=== PATIENT | female | born 1965 | race Caucasian/White ===

== ENCOUNTER 2017-03-19 09:14 | Inpatient (IN) | payer OTHER ==
--- NOTE | 2017-03-19 09:49 | PDOC ---
History of Present Illness - General Chief Complaint: Wound Stated Complaint: BILATERAL LEG PAIN Time Seen by Provider: 03/19/17 09:48 - History of Present Illness Initial Comments: 03/19/17 11:34 The patient is a 51 year old female with a history of HTN, DM, depression who presents for evaluation of wounds to her heels bilaterally. The patient reports that she does not follow with a physician normally and does not take any medications. She states that over the past month she has been experiencing worsening pain associated with the wounds on her heels. She states that she also notes a numb sensation in her right lower extremity from her knee to her foot. She noted that 1 week ago, both wounds on her heels bilaterally opened up and began draining clear fluid. She otherwise denies any fevers, chills, SOB , chest pain, abdominal pain, nausea, vomiting, weakness, tingling, or changes with urination or bowel movements. Past History - Past Medical History Allergies/Adverse Reactions: Allergies Allergy/AdvReac Type Severity Reaction Status Date / Time Penicillins Allergy Unknown Verified 03/19/17 09:19 Home Medications: Ambulatory Orders NK [No Known Home Medication] 03/19/17 COPD: No Diabetes: Yes (NO MEDS , NO MD) HTN: Yes (NO MEDS, NO MD) - Immunization History Immunization Up to Date: Yes - Suicide/Smoking/Psychosocial Hx Smoking History: Never smoked Hx Alcohol Use: No Drug/Substance Use Hx: No Substance Use Type: None Review of Systems - Review of Systems Comments:: 03/19/17 11:40 Constitutional: No fevers, chills, fatigue, malaise HEENT: No Rhinorrhea, nasal congestion, visual changes Cardiovascular: No chest pain, syncope, palpitations, lightheadedness Respiratory: No Cough, SOB, Hemoptysis, Gastrointestinal: No Abdominal pain, Nausea, Vomiting, Constipation, Diarrhea, Melena Genitourinary: No Dysuria, Frequency, Urgency, Hesitancy, Hematuria, Flank pain Musculoskeletal: No Myalgia, arthralgia Skin: Bilatearlly heel blistering wounds. No rashes, bruising, pallor Neurologic: Numbness to the right lower extremity. No Headache, Dizziness, Weakness, or Tingling Psychiatric: No Hallucinations. No SI or HI *Physical Exam - Vital Signs Last Vital Signs Temp Pulse Resp BP Pulse Ox 98.4 F 120 H 20 207/102 100 03/19/17 09:15 03/19/17 09:15 03/19/17 09:15 03/19/17 09:15 03/19/17 09:15 - Physical Exam Comments: 03/19/17 11:41 General Appearance: Nourished. In Mild Apparent Distress HEENT: EOMI, ROSALINDA. No Pharyngeal Erythema, Tonsillar Exudate, Tonsillar Erythema Neck: No Cervical Lymphadenopathy Respiratory/Chest: Lungs Clear, Normal Breath Sounds. No Crackles, Rales, Rhonchi, Wheezing Cardiovascular: Regular Rhythm, Regular Rate. No Murmur, Gallops, Rubs Gastrointestinal/Abdominal: Normal Bowel Sounds, Soft. No Guarding, Rebound, Tenderness Musculoskeletal: No CVA Tenderness Extremity: No edema noted in the lower extremities bilaterally. Blistering wound to the right heel with two skin tears and underlying hematoma and surrounding erythema. Extreme tenderness to palpation and light touch of the right foot. Small blistering wound to the left heel with a superficial skin tear. Non-palpable dp or tibial pulses bilaterally. Integumentary: Normal Color, Dry, Warm Neurologic: Fully Oriented, Alert, Normal Mood/Affect, Normal Response, Decreased sensation to light touch in the feet bilaterally worse on the right. ED Treatment Course - LABORATORY CBC & Chemistry Diagram: 03/19/17 10:37 03/19/17 10:37 Medical Decision Making - Medical Decision Making 03/19/17 11:45 The patient is a 51 year old female with a history of HTN, DM, depression who presents for evaluation of wounds to her heels bilaterally. Differential includes but is not limited to: Hyperglycemia, cellulitis, wound infection, dvt , ischemia, infectious, metabolic derangement. Given the patient's physical exam, it appears there is a wound infection and the concern is for osteomylitis vs. a cellulitis. Also given her decreased pulses bilaterally, we are concerned for ischemia possibly contributing to her symptoms. We will obtain a cbc, cmp, vbg, blood, cultures, esr, crp, ua, urine tox, plain films, arterial US, and possibly a CT of the lower extremities to evaluate further. We will treat the patient's pain with morphine. We will continue to monitor and reassess. 03/19/17 13:29 CBC demonstrates an elevated wbc to 14.2. cmp demonstrated a hyponatremia to 132 and hyperglycemia to 338. The patient's tachycardia and bp improved after treatment with morphine. ESR, ARSON INVESTIGATOR are elevated. Plain films did not demonstrate evidence of osteomylitis, however given our clinical concern we will obtain ct scan of the lower extremities to further evaluate and cover the patient with antibiotics. Arterial US did not demonstrate arterial occlusion, however also due to our clinical exam and concern we will obtain a cta of the lower extremities to evaluate further. We will continue to monitor and reassess. 03/19/17 15:21 We discussed the case with the hospitalist team who accepted the patient for admission. We discussed the results and the plan with the patient who voiced understanding and is agreeable with the plan. *DC/Admit/Observation/Transfer Diagnosis at time of Disposition: Hyperglycemia, PVD (peripheral vascular disease) Foot ulcer Qualifiers: Laterality: unspecified laterality Non-pressure ulcer stage: unspecified non- pressure ulcer stage Qualified Code(s): L97.509 - Non-pressure chronic ulcer of other part of unspecified foot with unspecified severity Cellulitis Qualifiers: Site of cellulitis: extremity Site of cellulitis of extremity: lower extremity Laterality: unspecified laterality Qualified Code(s): L03.119 - Cellulitis of unspecified part of limb - Discharge Dispostion Condition at time of disposition: Guarded Admit: Yes - Referrals - Patient Instructions - Post Discharge Activity
--- NOTE | 2017-03-19 10:06 | PDOC ---
Attending Attestation - HPI HPI: 03/19/17 11:33 The patient is a 51 year old female with a significant PMH of HTN, diabetes, and depression who presents to the emergency department with bilateral leg pain secondary to bilateral heel wounds that have not healed for about 1 month. She also notes about 1 week of clear fluid drainage from her heel wounds bilaterally. Allergies: Penicillins <MaikelLuis - Last Filed: 03/19/17 12:12> - Resident Resident Name: Jeosph Khan - ED Attending Attestation I have performed the following: I have examined & evaluated the patient, The case was reviewed & discussed with the resident, I agree w/resident's findings & plan, Exceptions are as noted - Physicial Exam PE: 03/19/17 14:14 Patient is awake and alert, afebrile, hypertensive and tachycardic on initial evaluation HEAD: Normocephalic; atraumatic EYES: PERRL; EOM intact ENMT: External appears normal; NECK: Supple; non-tender; no cervical lymphadenopathy CARD: Tachycardic, Normal S1, S2; no murmurs, rubs, or gallops RESP: Normal chest excursion with respiration; breath sounds clear and equal bilaterally; no wheezes, rhonchi, or rales ABD: Soft, non-distended; non-tender; no palpable organomegaly, no palpable hernias EXT: RLE: No obvious edema, erythema and discoloration of the distal third of the lower extremity involving the foot, cold to touch, with a 3 cm hemorrhagic bullae to the inner aspect of the right heel; unable to palpate dorsalis pedis and tibialis posterior; popliteal pulses +1; LLE: No obvious deformity; 2.5 cm callus with cutaneous disruption to the medial aspect of the left heel; unable to palpate dorsalis pedis and tibialis posterior; popliteal pulses +1 SKIN: Warm, dry, no rash NEURO: No focal neurological deficiencies. - Medical Decision Making 03/19/17 14:19 Patient is a 51-year-old female with history of diabetes, hypertension ( noncompliant with medication regimen, who is not been evaluated by a physician in several years) presents to the ER with atraumatic pain, discoloration and the wound formation to the lower extremities bilaterally. Right lower extremity is cooler to touch when compared to the left, with a 3 cm hemorrhagic bullae to the medial aspect of the medial, with no palpable dorsalis pedis or tibialis posterior pulses. I suspect a diabetic foot ulcer due to a combination of poorly controlled diabetes and peripheral vascular disease. Similar findings are noted on the left. We'll obtain CBC/CMP/ESR/CRP. We'll obtain bilateral foot x-ray to evaluate for possible bone erosion, will obtain arterial Doppler of the lower extremities to evaluate for serial insufficiency. Will consider CTA. Will administer IV antibiotics. Likely admission. 03/19/17 14:34 After administration of 4 mg of IV morphine, patient's blood pressure improved and heart rate decreased to 10 2 bpm. CBC reveals mild leukocytosis with predominance of neutrophils. ESR and CRP are elevated. Bilateral foot x-ray reveals no evidence of foreign bodies or bony distraction. Lower extremity arterial Doppler ultrasound shows no evidence of acute arterial occlusion, bilateral stenosis consistent with peripheral vascular disease is noted. Will administer IV antibiotics at this time (patient reports that her penicillin ALLERGY leads her to feel "not there"). I've explained to her that the symptoms are not consistent with true ALLERGY. We'll administer vancomycin and Zosyn. Will obtain CTA of lower extremities to better identify the anatomy. We'll consult vascular surgery as needed. Will admit. 03/19/17 16:05 Patient tolerated Zosyn without effect. <Brandon Guevara - Last Filed: 03/19/17 16:06>
[2017-03-19] MEDS ORDERED: morphine CARPU-JECT 4 MG/1 ML DISP.SYRIN IVPUSH ONE (10:35)
[2017-03-19] MEDS ORDERED: morphine CARPU-JECT 10 MG/1 ML DISP.SYRIN ONE (10:36)
[2017-03-19 11:11] LABS: BASO % 0.9 % (0-2.0); EOS % 0.2 % (0-4.5); HEMATOCRIT 36.8 % (32.4-45.2); HEMOGLOBIN 12.2 GM/dL (10.7-15.3); LYMPH % 7.8 % (8-40); MCH 28.4 pg (25.7-33.7); MCHC 33.2 g/dl (32.0-36.0); MEAN CELL VOLUME 85.7 fl (80-96); MEAN PLT VOLUME 8.7 fl (7.5-11.1); MONO % 5.9 % (3.8-10.2); NEUT % 85.2 % (42.8-82.8); PLATELET COUNT 349 K/MM3 (134-434); RDW 13.6 % (11.6-15.6); WHITE BLOOD COUNT 14.2 K/mm3 (4.0-10.0)
[2017-03-19 11:12] LABS: VENOUS PC02 34.2 mmHg (38-52); VENOUS PH 7.45 (7.32-7.42); VENOUS PO2 32.8 mmHg (28-48)
[2017-03-19 11:37] LABS: ALBUMIN 2.4 g/dl (3.4-5.0); ANION GAP 12 (8-16); BLOOD UREA NITROGEN 23 mg/dL (7-18); CALCIUM 8.7 mg/dL (8.5-10.1); CHLORIDE 94 mmol/L (98-107); CO2 26 mmol/L (21-32); CREATININE 0.9 mg/dL (0.55-1.02); SGOT/AST 11 U/L (15-37); SGPT/ALT 13 U/L (12-78); SODIUM 132 mmol/L (136-145)
[2017-03-19 11:39] LABS: ALK PHOS 89 U/L (45-117); BILIRUBIN,TOTAL 0.7 mg/dL (0.2-1.0); GLUCOSE,RANDOM 348 mg/dL (74-106); TOT PROT 6.8 g/dl (6.4-8.2)
[2017-03-19 11:43] LABS: INR 1.04 (0.82-1.09); PROTHROMBIN TIME (PATIENT) 11.7 SEC (9.98-11.88)
[2017-03-19] MEDS ORDERED: SODIUM CHLORIDE 1,000 ML IV STA (12:12)
[2017-03-19 13:15] LABS: URINE APPEARANCE CLEAR; URINE BILIRUBIN NEGATIVE (NEGATIVE); URINE BLOOD 2+ (NEGATIVE); URINE COLOR LTYELLOW; URINE GLUCOSE (UA) 3+ (NEGATIVE); URINE KETONE 1+ (NEGATIVE); URINE LEUK ESTERASE NEGATIVE (NEGATIVE); URINE NITRITE NEGATIVE (NEGATIVE); URINE UROBILINOGEN NEGATIVE mg/dL (0.2-1.0)
[2017-03-19 13:18] LABS: URINE PROTEIN 3+ (NEGATIVE)
[2017-03-19 13:21] LABS: COCAINE, UR NEGATIVE ng/ml (CUTOFF=300); EPI CELLS RARE /HPF (FEW); GRANULAR CASTS 12 /lpf; METHADONE, UR NEGATIVE ng/ml (CUTOFF=300); PHENCYCLIDINE,URINE NEGATIVE ng/ml (CUTOFF=25); URINE AMPHETAMINES NEGATIVE ng/ml (CUTOFF=500); URINE BARBITURATES NEGATIVE ng/ml (CUTOFF=200); URINE BENZODIAZEPINES NEGATIVE ng/ml (CUTOFF=200); URINE MUCUS RARE
[2017-03-19 13:22] LABS: OPIATES, URI POSITIVE ng/ml (CUTOFF=300)
[2017-03-19] MEDS ORDERED: VANCOMYCIN 1,250 MG in DEXTROSE 5%-WATER - 250 ML IVPB ONE (13:28)
[2017-03-19] MEDS ORDERED: PIPERACILLIN/TAZOB 3.375 GM 3.375 GM/50 ML BAG IVPB ONE (13:54)
[2017-03-19] MEDS ORDERED: VANCOMYCIN 1,250 MG in SODIUM CHLORIDE 250 ML IVPB ONE (13:58)
[2017-03-19] MEDS ORDERED: ONDANSETRON 4 MG/2 ML VIAL IVPUSH ONE ×2 (14:01→16:05)
[2017-03-19] MEDS ORDERED: ONDANSETRON 4 MG/2 ML VIAL ONE ×2 (14:23→16:08)
[2017-03-19] MEDS ORDERED: PIPERACILLIN/TAZOB 3.375 GM 3.375 GM in SODIUM CHLORIDE 100 ML IVPB ONE (14:30)
--- NOTE | 2017-03-19 15:11 | HP ---
CHIEF COMPLAINT: worsening lower ext pain with ambulation/bilateral wounds with drainage PCP: does not have one HISTORY OF PRESENT ILLNESS: Patient is a 51 year old female with a significant past medical history of hypertension, diabetes (both uncontrolled and on no home medication) and depression. She presents to the Emergency Room today with complaints of worsening lower extremity pain and evaluation of her wounds on her bilateral heels. Patient does not have a primary care physician and is on no medications for her diabetes and hypertension. She states that over the past few weeks she has been experiencing worsening pain associated to the wounds on both feet, but the right was worse than the left. She reports pain with ambulation and worsening drainage of her wounds. She states that she also notes a numb sensation in her right lower extremity from her knee to her foot. She noted that 1 week ago, both wounds on her heels bilaterally opened up and began draining clear fluid. She denies any fever, chills, chest pain or shortness of breath. On exam, unable to appreciate pulses on bilateral lower ext, pt is able to move both lower limbs when asked, denies any numbness or tingling. CTA with aorta runoff Impression: 1. peripheral vascular disease with severe stenosis and flow gap in the distal right SFA, severe stenosis in the right popliteal artery and likely multifocoal hemodynamically significant lunimal narrowing in the anterior tibial, postero tibial and peoneal arteries, secondary to calcified plaque. 2. Peripheral vascular disease with severe stenosis in the distal left superficial femoral artery. Severe stenosis in the distal left popliteal artery with flow gap, likely multifocal hemodynamically significant luminal narrowing in the anterior tibial, posterior tibial and peroneal arteries secondary to calcified plaque. Severe short segment luminal narrowing in the left dorsalis pedis. 4. enlarged lobulated uterus with multiple large leiomyomas ER course was notable for: (1) BGMs 400s (2) CTA as above (3) NA 132 Recent Travel: denies PAST MEDICAL HISTORY: hypertension, diabetes (both uncontrolled and on no home medication) and depression PAST SURGICAL HISTORY: Social History: Smoking: denies Alcohol: denies Drugs: denies Family History: Allergies Penicillins Allergy (Unknown, Verified 03/19/17 09:19) HOME MEDICATIONS: Home Medications Medication Instructions Recorded NK [No Known Home Medication] 03/19/17 REVIEW OF SYSTEMS CONSTITUTIONAL: Absent: fever, chills, diaphoresis, generalized weakness, malaise, loss of appetite, weight change HEENT: Absent: rhinorrhea, nasal congestion, throat pain, throat swelling, difficulty swallowing, mouth swelling, ear pain, eye pain, visual changes CARDIOVASCULAR: Absent: chest pain, syncope, palpitations, irregular heart rate, lightheadedness , peripheral edema RESPIRATORY: Absent: cough, shortness of breath, dyspnea with exertion, orthopnea, wheezing, stridor, hemoptysis GASTROINTESTINAL: Absent: abdominal pain, abdominal distension, nausea, vomiting, diarrhea, constipation, melena, hematochezia GENITOURINARY: Absent: dysuria, frequency, urgency, hesitancy, hematuria, flank pain, genital pain MUSCULOSKELETAL: Absent: myalgia, arthralgia, joint swelling, back pain, neck pain SKIN: Absent: rash, itching, pallor HEMATOLOGIC/IMMUNOLOGIC: Absent: easy bleeding, easy bruising, lymphadenopathy, frequent infections ENDOCRINE: Absent: unexplained weight gain, unexplained weight loss, heat intolerance, cold intolerance NEUROLOGIC: Absent: headache, focal weakness or paresthesias, dizziness, unsteady gait, seizure, mental status changes, bladder or bowel incontinence PSYCHIATRIC: Absent: anxiety, suicidal or homicidal ideation, hallucinations. PHYSICAL EXAMINATION Vital Signs - 24 hr 03/19/17 03/19/17 03/19/17 09:15 11:07 13:04 Temperature 98.4 F Pulse Rate 120 H Pulse Rate [ 110 H 90 Left Radial] Respiratory 20 22 20 Rate Blood Pressure 207/102 Blood Pressure 173/70 193/96 [Left Arm] O2 Sat by Pulse 100 100 99 Oximetry (%) GENERAL: Awake, alert, and fully oriented, in no acute distress. HEAD: Normal with no signs of trauma. EYES: Pupils equal, round and reactive to light, extraocular movements intact, sclera anicteric, conjunctiva clear. No lid lag. EARS, NOSE, THROAT: Ears normal, nares patent, oropharynx clear without exudates. Moist mucous membranes. NECK: Normal range of motion, supple without lymphadenopathy, JVD, or masses. LUNGS: Breath sounds equal, clear to auscultation bilaterally. No wheezes, and no crackles. No accessory muscle use. EXT: Right lower ext: No edema, + erythema and dark discoloration of the distal third of the lower extremity. Round heal wound, circular 3cm x 3cm hemorrhagic bullae to the inner aspect of the right heal. Discolored right ankle, may be bleeding under skin. Unable to palpate pulses. Left lower ext. No deformity 2.5 x 2cm circular callus with cutanous medial aspect of left heal. Unable to palpate pulses. Patient able to move toes freely when asked. Poor capillary refill. PSYCHIATRIC: Cooperative. Good eye contact. Appropriate mood and affect. Laboratory Results - last 24 hr 03/19/17 03/19/17 03/19/17 10:19 10:35 10:37 WBC 14.2 H RBC 4.30 Hgb 12.2 Hct 36.8 MCV 85.7 MCH 28.4 MCHC 33.2 RDW 13.6 Plt Count 349 D MPV 8.7 Neutrophils % 85.2 H Lymphocytes % 7.8 L Monocytes % 5.9 Eosinophils % 0.2 D Basophils % 0.9 ESR PT with INR INR VBG pH 7.45 H POC VBG pCO2 34.2 L POC VBG pO2 32.8 Mixed VBG HCO3 23.6 Sodium Potassium Chloride Carbon Dioxide Anion Gap BUN Creatinine Creat Clearance w eGFR POC Glucometer [phone] Random Glucose Calcium Total Bilirubin AST ALT Alkaline Phosphatase C-Reactive Protein Total Protein Albumin Serum , Qual Urine Color Urine Appearance Urine pH Ur Specific Hartman Urine Protein Urine Glucose (UA) Urine Ketones Urine Blood Urine Nitrite Urine Bilirubin Urine Urobilinogen Ur Leukocyte Esterase Urine WBC (Auto) Urine RBC (Auto) Ur Epithelial Cells Granular Casts Urine Mucus Opiates Screen Methadone Screen Barbiturate Screen Phencyclidine Screen Ur Amphetamines Screen MDMA (Ecstasy) Screen Benzodiazepines Screen Cocaine Screen U Marijuana (THC) Screen Blood Type Antibody Screen 03/19/17 03/19/17 03/19/17 10:37 10:37 10:37 WBC RBC Hgb Hct MCV MCH MCHC RDW Plt Count MPV Neutrophils % Lymphocytes % Monocytes % Eosinophils % Basophils % ESR PT with INR 11.70 INR 1.04 VBG pH POC VBG pCO2 POC VBG pO2 Mixed VBG HCO3 Sodium 132 L Potassium 4.0 Chloride 94 L Carbon Dioxide 26 Anion Gap 12 BUN 23 H Creatinine 0.9 Creat Clearance w eGFR > 60 POC Glucometer Random Glucose 348 H* Calcium 8.7 Total Bilirubin 0.7 D AST 11 L ALT 13 Alkaline Phosphatase 89 C-Reactive Protein Total Protein 6.8 Albumin 2.4 L Serum , Qual Urine Color Urine Appearance Urine pH Ur Specific Hartman Urine Protein Urine Glucose (UA) Urine Ketones Urine Blood Urine Nitrite Urine Bilirubin Urine Urobilinogen Ur Leukocyte Esterase Urine WBC (Auto) Urine RBC (Auto) Ur Epithelial Cells Granular Casts Urine Mucus Opiates Screen Methadone Screen Barbiturate Screen Phencyclidine Screen Ur Amphetamines Screen MDMA (Ecstasy) Screen Benzodiazepines Screen Cocaine Screen U Marijuana (THC) Screen Blood Type A POSITIVE Antibody Screen Negative 03/19/17 03/19/17 03/19/17 10:37 10:37 12:15 WBC RBC Hgb Hct MCV MCH MCHC RDW Plt Count MPV Neutrophils % Lymphocytes % Monocytes % Eosinophils % Basophils % ESR 90 H PT with INR INR VBG pH POC VBG pCO2 POC VBG pO2 Mixed VBG HCO3 Sodium Potassium Chloride Carbon Dioxide Anion Gap BUN Creatinine Creat Clearance w eGFR POC Glucometer Random Glucose Calcium Total Bilirubin AST ALT Alkaline Phosphatase C-Reactive Protein 7.8 H Total Protein Albumin Serum , Qual Negative Urine Color Urine Appearance Urine pH Ur Specific Hartman Urine Protein Urine Glucose (UA) Urine Ketones Urine Blood Urine Nitrite Urine Bilirubin Urine Urobilinogen Ur Leukocyte Esterase Urine WBC (Auto) Urine RBC (Auto) Ur Epithelial Cells Granular Casts Urine Mucus Opiates Screen Methadone Screen Barbiturate Screen Phencyclidine Screen Ur Amphetamines Screen MDMA (Ecstasy) Screen Benzodiazepines Screen Cocaine Screen U Marijuana (THC) Screen Blood Type Antibody Screen 03/19/17 03/19/17 13:04 13:04 WBC RBC Hgb Hct MCV MCH MCHC RDW Plt Count MPV Neutrophils % Lymphocytes % Monocytes % Eosinophils % Basophils % ESR PT with INR INR VBG pH POC VBG pCO2 POC VBG pO2 Mixed VBG HCO3 Sodium Potassium Chloride Carbon Dioxide Anion Gap BUN Creatinine Creat Clearance w eGFR POC Glucometer Random Glucose Calcium Total Bilirubin AST ALT Alkaline Phosphatase C-Reactive Protein Total Protein Albumin Serum , Qual Urine Color Ltyellow Urine Appearance Clear Urine pH 5.0 Ur Specific Hartman 1.022 Urine Protein 3+ H Urine Glucose (UA) 3+ H Urine Ketones 1+ H Urine Blood 2+ H Urine Nitrite Negative Urine Bilirubin Negative Urine Urobilinogen Negative Ur Leukocyte Esterase Negative Urine WBC (Auto) 2 Urine RBC (Auto) 2 Ur Epithelial Cells Rare Granular Casts 12 Urine Mucus Rare Opiates Screen Positive Methadone Screen Negative Barbiturate Screen Negative Phencyclidine Screen Negative Ur Amphetamines Screen Negative MDMA (Ecstasy) Screen Negative Benzodiazepines Screen Negative Cocaine Screen Negative U Marijuana (THC) Screen Negative Blood Type Antibody Screen ASSESSMENT/PLAN: Patient is a 51 year old female with a significant past medical history of hypertension, diabetes (both uncontrolled and on no home medication) and depression. She presents to the Emergency Room today with complaints of worsening lower extremity pain and evaluation of her wounds on her bilateral heels. Patient does not have a primary care physician and is on no medications for her diabetes and hypertension. She states that over the past few weeks she has been experiencing worsening pain associated to the wounds on both feet, but the right was worse than the left. She reports pain with ambulation and worsening drainage of her wounds. She states that she also notes a numb sensation in her right lower extremity from her knee to her foot. She noted that 1 week ago, both wounds on her heels bilaterally opened up and began draining clear fluid. She denies any fever, chills, chest pain or shortness of breath. On exam, unable to appreciate pulses on bilateral lower ext, pt is able to move both lower limbs when asked, denies any numbness or tingling. Imaging: CTA with aorta runoff Impression: 1. peripheral vascular disease with severe stenosis and flow gap in the distal right SFA, severe stenosis in the right popliteal artery and likely multifocoal hemodynamically significant lunimal narrowing in the anterior tibial, postero tibial and peoneal arteries, secondary to calcified plaque. 2. Peripheral vascular disease with severe stenosis in the distal left superficial femoral artery. Severe stenosis in the distal left popliteal artery with flow gap, likely multifocal hemodynamically significant luminal narrowing in the anterior tibial, posterior tibial and peroneal arteries secondary to calcified plaque. Severe short segment luminal narrowing in the left dorsalis pedis. 4. enlarged lobulated uterus with multiple large leiomyomas EKG: Sinus tachycardia, possible left atrial enlargement, non specific st and t wave abnormality ID: Sepsis secondary to diabetic wounds/Rule out osteomylitis WBC 14.2, tachycardia on admission Blood and urine cultures pending Started on Ertapenum by ID Culture wound MRI bilateral LE ordered Has PCN allergy ID following Vascular: PVD with severe stenosis and flow gap in the distal right SFA Severe stenosis in the right popliteal artery PVD with severe stenosis in the distal left superficial femoral artery Start ASA 81mg daily, first dose now Lipitor 80mg @ hs Lipid profile in a.m. Vascular consulted, MRI ordered r/o osteo Cardiology: Hypertension, uncontrolled On no home meds Given Amlodopine 10mg in ED Start Lisinopril 10mg daily and Amlodopine 5mg daily UA + protein Echo ordered Heart score 5, risk factors: uncontrolled htn, hyperlipidemia, dm, pvd - will consult cardiology Possible pre-op clearance Monitor BP Endocrine: Diabetes Mellitus, uncontrolled No anion gap BGMs, Novolog sliding scale Diabetic diet Levemir 5 units @ hs F.E.N. Fluids: IVF-NS for hyponatremia Electrolytes: monitor Nutrition: diabetic diet Prophylaxis DVT: Heparin TID GI: Protonix Disposition: full code. On discharge will need PCP assignment as pt states she does not have PCP. Visit type - Emergency Visit Emergency Visit: Yes ED Registration Date: 03/19/17 Care time: The patient presented to the Emergency Department on the above date and was hospitalized for further evaluation of their emergent condition. - New Patient This patient is new to me today: Yes Date on this admission: 03/19/17 - Critical Care Critical Care patient: No
[2017-03-19] MEDS: PIPERACILLIN/TAZOB 3.375 GM 50 ML IVPB ONE ×2 (15:37→15:51)
--- NOTE | 2017-03-19 15:54 | CON.ID ---
Consult Consult Specialty:: infectious diseases Reason for Consultation:: cellulitits and gangrene of the rt leg - History of Present Illness Chief Complaint: unable to walk History of Present Illness: 51 year old female with a significant past medical history of hypertension, diabetes takes no medications and depression. comes to the Emergency Room today with complaints of worsening lower extremity pain and evaluation of her wounds on her bilateral heels. Patient does not have a primary care physician and is on no medications for her diabetes and hypertension. She states that over the past few weeks she has been experiencing worsening pain associated to the wounds on both feet, but the right was worse than the left. She reports pain with ambulation and worsening drainage of her wounds. She states that she also notes a numb sensation in her right lower extremity from her knee to her foot. She noted that 1 week ago, both wounds on her heels bilaterally opened up and began draining clear fluid. She denies any fever, chills, chest pain or shortness of breath. the rt side of the heel color has turned black and patient has been unable to put any pressure on the legs and not walking because of that patient has a bland affect - History Source History Provided By: Patient Limitations to Obtaining History: No Limitations - Alcohol/Substance Use Hx Alcohol Use: No - Smoking History Smoking history: Never smoked Home Medications - Allergies Allergies/Adverse Reactions: Allergies Allergy/AdvReac Type Severity Reaction Status Date / Time Penicillins Allergy Unknown Verified 03/19/17 09:19 - Home Medications Home Medications: Ambulatory Orders NK [No Known Home Medication] 03/19/17 Review of Systems - Review of Systems Constitutional: reports: No Symptoms Eyes: reports: No Symptoms HENT: reports: No Symptoms Neck: reports: No Symptoms Cardiovascular: reports: No Symptoms Respiratory: reports: No Symptoms Gastrointestinal: reports: No Symptoms Genitourinary: reports: No Symptoms Musculoskeletal: reports: Other (numbness specially of the right ext) Integumentary: reports: Change in Color (black on the heel) Neurological: reports: Numbness (legs) Endocrine: reports: No Symptoms Hematology/Lymphatic: reports: No Symptoms Psychiatric: reports: No Symptoms Physical Exam Vital Signs: Vital Signs Temperature 98.4 F 03/19/17 09:15 Pulse Rate 90 03/19/17 13:04 Respiratory Rate 20 03/19/17 13:04 Blood Pressure 193/96 03/19/17 13:04 O2 Sat by Pulse Oximetry (%) 99 03/19/17 13:04 Constitutional: Yes: No Distress, Calm Eyes: Yes: Conjunctiva Clear HENT: Yes: Atraumatic Cardiovascular: Yes: Regular Rate and Rhythm Respiratory: Yes: Regular, CTA Bilaterally Gastrointestinal: Yes: Normal Bowel Sounds, Soft Musculoskeletal: Yes: Other Extremities: Yes: Other (Right lower ext: No edema, + erythema and dark discoloration of the distal third of the lower extremity. Round heal wound, circular 3cm x 3cm hemorrhagic bullae to the inner aspect of the right heal. Discolored right ankle, may be bleeding under skin. Unable to palpate pulses. Left lower ext. No deformity 2.5 x 2cm circular callus with cutanous medial aspect of left heal. 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
[2017-03-19] MEDS ORDERED: amLODIPine BESYLATE 10 MG TABLET (FP) PO ONE (16:06)
[2017-03-19] MEDS ORDERED: morphine CARPU-JECT 10 MG/1 ML DISP.SYRIN SQ PRN (16:06)
[2017-03-19] MEDS ORDERED: amLODIPine BESYLATE 5 MG TABLET (FP) ONE (16:07)
[2017-03-19] MEDS ORDERED: INSULIN (NOVOLOG) ASPART 100 UNITS/ML 10ML VIAL ONE ×2 (16:25→20:48)
--- NOTE | 2017-03-19 16:30 | EKG ---
Test Reason : Blood Pressure : / mmHG Vent. Rate : 102 BPM Atrial Rate : 102 BPM P-R Int : 144 ms QRS Dur : 090 ms QT Int : 348 ms P-R-T Axes : 055 059 082 degrees QTc Int : 453 ms SINUS TACHYCARDIA POSSIBLE LEFT ATRIAL ENLARGEMENT NONSPECIFIC ST AND T WAVE ABNORMALITY BORDERLINE ECG WHEN COMPARED WITH ECG OF 07-JUN-2010 23:52, ST-T ABNORMALITY NOT EVIDENT Confirmed by HILL SINGH MD ([id number]) on 03/19/2017 4:30:25 PM Referred By: Confirmed By:HILL SINGH MD
[2017-03-19] MEDS ORDERED: LISINOPRIL 5 MG TABLET (FP) PO SCH (16:45)
[2017-03-19] MEDS ORDERED: ERTAPENEM SODIUM 1 GM in SODIUM CHLORIDE 50 ML IVPB SCH (16:45)
[2017-03-19] MEDS: INSULIN SLIDING SCALE (NOVOLOG) 1 VIAL SQ SCH ×2 (16:58→21:47)
[2017-03-19] MEDS ORDERED: PANTOPRAZOLE 40 MG TABLET (FP) PO SCH (18:00)
[2017-03-19] MEDS: ONDANSETRON 4 MG/2 ML VIAL IVPUSH PRN (19:05)
[2017-03-19] MEDS: SODIUM CHLORIDE 1,000 ML IV SCH (19:13)
[2017-03-19] MEDS ORDERED: PANTOPRAZOLE SODIUM 40 MG VIAL IVPUSH ONE (19:15)
[2017-03-19 21:39] VITALS: BMI 26.6
[2017-03-19] MEDS: ERTAPENEM SODIUM 1 GM in SODIUM CHLORIDE 100 ML IVPB SCH (21:44)
[2017-03-19] MEDS: ASPIRIN COATED 81 MG TABLET.EC PO SCH (21:44)
[2017-03-19] MEDS: HEPARIN NA (PORCINE) 5,000 UNITS/ML 1ML VIAL SQ SCH (21:45)
[2017-03-19] MEDS: ATORVASTATIN CA 80 MG TABLET (FP) PO SCH (21:45)
[2017-03-19] MEDS ORDERED: INSULIN DETEMIR 100 UNITS/ML MDV SQ SCH (22:00)
[2017-03-20] MEDS: ACETAMINOPHEN 325 MG TABLET (FP) PO PRN ×3 (01:09→20:06)
[2017-03-20] MEDS: INSULIN SLIDING SCALE (NOVOLOG) 1 VIAL SQ SCH ×4 (06:49→21:49)
[2017-03-20] MEDS: HEPARIN NA (PORCINE) 5,000 UNITS/ML 1ML VIAL SQ SCH ×3 (06:49→21:48)
[2017-03-20 07:39] LABS: BASO % 0.8 % (0-2.0); EOS % 1.8 % (0-4.5); HEMATOCRIT 31.7 % (32.4-45.2); HEMOGLOBIN 10.7 GM/dL (10.7-15.3); LYMPH % 21.7 % (8-40); MCH 28.8 pg (25.7-33.7); MCHC 33.7 g/dl (32.0-36.0); MEAN CELL VOLUME 85.5 fl (80-96); MEAN PLT VOLUME 8.3 fl (7.5-11.1); MONO % 8.8 % (3.8-10.2); NEUT % 66.9 % (42.8-82.8); PLATELET COUNT 300 K/MM3 (134-434); RBC 3.71 M/mm3 (3.60-5.2); RDW 13.4 % (11.6-15.6); WHITE BLOOD COUNT 9.6 K/mm3 (4.0-10.0)
[2017-03-20] MEDS ORDERED: PT OWN MED DRAWER 7, Y5N ONE (07:46)
--- NOTE | 2017-03-20 08:25 | PN ---
Physical Exam: SUBJECTIVE: Patient seen and examined Pt complains of numbness to her feet, + left heel pain, denies cp, sob, palpitations, abdominal pain, N/V/D or urinary symptoms. OBJECTIVE: Vital Signs Period Temp Pulse Resp BP Sys/Rahman Pulse Ox Last 24 Hr 97.7 F-98.4 F 80-120 16-22 144-207/70-102 98-100 GENERAL: The patient is awake, alert, and fully oriented, in no acute distress. HEAD: Normal with no signs of trauma. EYES: PERRL, extraocular movements intact, sclera anicteric, conjunctiva clear. No ptosis. ENT: Ears normal, nares patent, oropharynx clear without exudates, moist mucous membranes. NECK: Trachea midline, full range of motion, supple. LUNGS: Breath sounds equal, clear to auscultation bilaterally, no wheezes, no crackles, no accessory muscle use. HEART: Regular rate and rhythm, S1, S2 without murmur, rub or gallop. ABDOMEN: Soft, nontender, nondistended, normoactive bowel sounds, no guarding, no rebound, no hepatosplenomegaly, no masses. EXTREMITIES: Lt pedal faint pulse,warm to touch, Rt foot no palpable pulse, no edema,will check pulse with Doppler NEUROLOGICAL: Cranial nerves II through XII grossly intact. Normal speech, gait not observed. PSYCH: Normal mood, normal affect. SKIN: Warm, dry, normal turgor, no rashes,+bilateral heel ulcers Laboratory Results - last 24 hr 03/19/17 03/19/17 03/19/17 10:19 10:35 10:37 WBC 14.2 H RBC 4.30 Hgb 12.2 Hct 36.8 MCV 85.7 MCH 28.4 MCHC 33.2 RDW 13.6 Plt Count 349 D MPV 8.7 Neutrophils % 85.2 H Lymphocytes % 7.8 L Monocytes % 5.9 Eosinophils % 0.2 D Basophils % 0.9 ESR PT with INR INR VBG pH 7.45 H POC VBG pCO2 34.2 L POC VBG pO2 32.8 Mixed VBG HCO3 23.6 Sodium Potassium Chloride Carbon Dioxide Anion Gap BUN Creatinine Creat Clearance w eGFR POC Glucometer [phone] Random Glucose Lactic Acid Calcium Total Bilirubin AST ALT Alkaline Phosphatase C-Reactive Protein Total Protein Albumin Serum , Qual Urine Color Urine Appearance Urine pH Ur Specific [place] Urine Protein Urine Glucose (UA) Urine Ketones Urine Blood Urine Nitrite Urine Bilirubin Urine Urobilinogen Ur Leukocyte Esterase Urine WBC (Auto) Urine RBC (Auto) Ur Epithelial Cells Granular Casts Urine Mucus Opiates Screen Methadone Screen Barbiturate Screen Phencyclidine Screen Ur Amphetamines Screen MDMA (Ecstasy) Screen Benzodiazepines Screen Cocaine Screen U Marijuana (THC) Screen Blood Type Antibody Screen 03/19/17 03/19/17 03/19/17 10:37 10:37 10:37 WBC RBC Hgb Hct MCV MCH MCHC RDW Plt Count MPV Neutrophils % Lymphocytes % Monocytes % Eosinophils % Basophils % ESR PT with INR 11.70 INR 1.04 VBG pH POC VBG pCO2 POC VBG pO2 Mixed VBG HCO3 Sodium 132 L Potassium 4.0 Chloride 94 L Carbon Dioxide 26 Anion Gap 12 BUN 23 H Creatinine 0.9 Creat Clearance w eGFR > 60 POC Glucometer Random Glucose 348 H* Lactic Acid Calcium 8.7 Total Bilirubin 0.7 D AST 11 L ALT 13 Alkaline Phosphatase 89 C-Reactive Protein Total Protein 6.8 Albumin 2.4 L Serum , Qual Urine Color Urine Appearance Urine pH Ur Specific [place] Urine Protein Urine Glucose (UA) Urine Ketones Urine Blood Urine Nitrite Urine Bilirubin Urine Urobilinogen Ur Leukocyte Esterase Urine WBC (Auto) Urine RBC (Auto) Ur Epithelial Cells Granular Casts Urine Mucus Opiates Screen Methadone Screen Barbiturate Screen Phencyclidine Screen Ur Amphetamines Screen MDMA (Ecstasy) Screen Benzodiazepines Screen Cocaine Screen U Marijuana (THC) Screen Blood Type A POSITIVE Antibody Screen Negative 03/19/17 03/19/17 03/19/17 10:37 10:37 12:15 WBC RBC Hgb Hct MCV MCH MCHC RDW Plt Count MPV Neutrophils % Lymphocytes % Monocytes % Eosinophils % Basophils % ESR 90 H PT with INR INR VBG pH POC VBG pCO2 POC VBG pO2 Mixed VBG HCO3 Sodium Potassium Chloride Carbon Dioxide Anion Gap BUN Creatinine Creat Clearance w eGFR POC Glucometer Random Glucose Lactic Acid Calcium Total Bilirubin AST ALT Alkaline Phosphatase C-Reactive Protein 7.8 H Total Protein Albumin Serum , Qual Negative Urine Color Urine Appearance Urine pH Ur Specific [place] Urine Protein Urine Glucose (UA) Urine Ketones Urine Blood Urine Nitrite Urine Bilirubin Urine Urobilinogen Ur Leukocyte Esterase Urine WBC (Auto) Urine RBC (Auto) Ur Epithelial Cells Granular Casts Urine Mucus Opiates Screen Methadone Screen Barbiturate Screen Phencyclidine Screen Ur Amphetamines Screen MDMA (Ecstasy) Screen Benzodiazepines Screen Cocaine Screen U Marijuana (THC) Screen Blood Type Antibody Screen 03/19/17 03/19/17 03/19/17 13:04 13:04 16:20 WBC RBC Hgb Hct MCV MCH MCHC RDW Plt Count MPV Neutrophils % Lymphocytes % Monocytes % Eosinophils % Basophils % ESR PT with INR INR VBG pH POC VBG pCO2 POC VBG pO2 Mixed VBG HCO3 Sodium Potassium Chloride Carbon Dioxide Anion Gap BUN Creatinine Creat Clearance w eGFR POC Glucometer [phone] Random Glucose Lactic Acid Calcium Total Bilirubin AST ALT Alkaline Phosphatase C-Reactive Protein Total Protein Albumin Serum , Qual Urine Color Ltyellow Urine Appearance Clear Urine pH 5.0 Ur Specific [place] 1.022 Urine Protein 3+ H Urine Glucose (UA) 3+ H Urine Ketones 1+ H Urine Blood 2+ H Urine Nitrite Negative Urine Bilirubin Negative Urine Urobilinogen Negative Ur Leukocyte Esterase Negative Urine WBC (Auto) 2 Urine RBC (Auto) 2 Ur Epithelial Cells Rare Granular Casts 12 Urine Mucus Rare Opiates Screen Positive Methadone Screen Negative Barbiturate Screen Negative Phencyclidine Screen Negative Ur Amphetamines Screen Negative MDMA (Ecstasy) Screen Negative Benzodiazepines Screen Negative Cocaine Screen Negative U Marijuana (THC) Screen Negative Blood Type Antibody Screen 03/19/17 03/19/17 03/20/17 20:20 21:42 06:00 WBC 9.6 D RBC 3.71 Hgb 10.7 D Hct 31.7 L MCV 85.5 MCH 28.8 MCHC 33.7 RDW 13.4 Plt Count 300 MPV 8.3 Neutrophils % 66.9 D Lymphocytes % 21.7 D Monocytes % 8.8 Eosinophils % 1.8 D Basophils % 0.8 ESR PT with INR INR VBG pH POC VBG pCO2 POC VBG pO2 Mixed VBG HCO3 Sodium Potassium Chloride Carbon Dioxide Anion Gap BUN Creatinine Creat Clearance w eGFR POC Glucometer 456 Random Glucose Lactic Acid 0.8 Calcium Total Bilirubin AST ALT Alkaline Phosphatase C-Reactive Protein Total Protein Albumin Serum , Qual Urine Color Urine Appearance Urine pH Ur Specific [place] Urine Protein Urine Glucose (UA) Urine Ketones Urine Blood Urine Nitrite Urine Bilirubin Urine Urobilinogen Ur Leukocyte Esterase Urine WBC (Auto) Urine RBC (Auto) Ur Epithelial Cells Granular Casts Urine Mucus Opiates Screen Methadone Screen Barbiturate Screen Phencyclidine Screen Ur Amphetamines Screen MDMA (Ecstasy) Screen Benzodiazepines Screen Cocaine Screen U Marijuana (THC) Screen Blood Type Antibody Screen 03/20/17 06:47 WBC RBC Hgb Hct MCV MCH MCHC RDW Plt Count MPV Neutrophils % Lymphocytes % Monocytes % Eosinophils % Basophils % ESR PT with INR INR VBG pH POC VBG pCO2 POC VBG pO2 Mixed VBG HCO3 Sodium Potassium Chloride Carbon Dioxide Anion Gap BUN Creatinine Creat Clearance w eGFR POC Glucometer 134 Random Glucose Lactic Acid Calcium Total Bilirubin AST ALT Alkaline Phosphatase C-Reactive Protein Total Protein Albumin Serum , Qual Urine Color Urine Appearance Urine pH Ur Specific [place] Urine Protein Urine Glucose (UA) Urine Ketones Urine Blood Urine Nitrite Urine Bilirubin Urine Urobilinogen Ur Leukocyte Esterase Urine WBC (Auto) Urine RBC (Auto) Ur Epithelial Cells Granular Casts Urine Mucus Opiates Screen Methadone Screen Barbiturate Screen Phencyclidine Screen Ur Amphetamines Screen MDMA (Ecstasy) Screen Benzodiazepines Screen Cocaine Screen U Marijuana (THC) Screen Blood Type Antibody Screen Active Medications Generic Name Dose Route Start Last Admin Trade Name Freq PRN Reason Stop Dose Admin Acetaminophen 650 mg 03/20/17 00:35 03/20/17 01:09 Tylenol - PO 650 mg Q6H PRN Administration PAIN Amlodipine Besylate 5 mg 03/20/17 10:00 Norvasc - PO DAILY JESSICA Aspirin 81 mg 03/19/17 17:45 03/19/17 21:44 Ecotrin - PO 81 mg DAILY JESSICA Administration Atorvastatin Calcium 80 mg 03/19/17 22:00 03/19/17 21:45 Lipitor - PO 80 mg HS JESSICA Administration Heparin Sodium (Porcine) 5,000 unit 03/19/17 22:00 03/20/17 06:49 Heparin - SQ 5,000 unit TID JESSICA Administration Sodium Chloride 1,000 mls @ 75 mls/hr 03/19/17 16:15 03/19/17 19:13 Normal Saline - IV 75 mls/hr ASDIR JESSICA Administration Ertapenem 1 gm/ Sodium 100 mls @ 100 mls/hr 03/19/17 17:00 03/19/17 21:44 Chloride IVPB 100 mls/hr DAILY JESSICA Administration Protocol Insulin Aspart 1 vial 03/19/17 16:30 03/20/17 06:49 Novolog Vial Sliding Scale - SQ Not Given ACHS [facility] Protocol Insulin Detemir 5 units 03/19/17 22:00 03/19/17 21:48 Levemir Vial SQ 5 unit HS JESSICA Administration Lisinopril 10 mg 03/19/17 17:50 Prinivil PO DAILY [facility] Morphine Sulfate 1 mg 03/19/17 16:06 Morphine Injection - SQ Q6H PRN PAIN LEVEL 6-10 Ondansetron HCl 4 mg 03/19/17 16:08 03/19/17 19:05 Zofran Injection IVPUSH 4 mg Q6H PRN Administration NAUSEA AND/OR VOMITING Pantoprazole Sodium 40 mg 03/20/17 10:00 Protonix - PO DAILY [facility] Imaging: CTA with aorta runoff Impression: 1. peripheral vascular disease with severe stenosis and flow gap in the distal right SFA, severe stenosis in the right popliteal artery and likely multifocoal hemodynamically significant lunimal narrowing in the anterior tibial, postero tibial and peoneal arteries, secondary to calcified plaque. 2. Peripheral vascular disease with severe stenosis in the distal left superficial femoral artery. Severe stenosis in the distal left popliteal artery with flow gap, likely multifocal hemodynamically significant luminal narrowing in the anterior tibial, posterior tibial and peroneal arteries secondary to calcified plaque. Severe short segment luminal narrowing in the left dorsalis pedis. 4. enlarged lobulated uterus with multiple large leiomyomas EKG: Sinus tachycardia, possible left atrial enlargement, non specific st and t wave abnormality US Lower Ext - No DVT MRI Lower ext Done - report pending ASSESSMENT/PLAN: Patient is a 51 year old female with a significant past medical history of hypertension, diabetes (both uncontrolled and on no home medication) and depression. She presents to the Emergency Room today with complaints of worsening lower extremity pain and evaluation of her wounds on her bilateral heels. PMD- None *Sepsis secondary to diabetic wounds/Rule out osteomylitis WBC 14.2, tachycardia on admission- resolved Blood and urine cultures pending -PCN allergy -on Ertapenum by ID -MRI bilateral LE done,report pending ID following - abnormal ESR and CRP *PVD with severe stenosis and flow gap in the distal right SFA Severe stenosis in the right popliteal artery PVD with severe stenosis in the distal left superficial femoral artery Started on ASA 81mg/ Lipitor -Lipid profile - abnormal -on Statin now Vascular consulted MRI done to r/o osteo,report pending - DVT ruled out *Hypertension, uncontrolled- not on any meds at home - BP improving -Started on Lisinopril 10mg daily and Amlodopine 5mg daily -Heart score 5, risk factors: uncontrolled htn, hyperlipidemia, dm, pvd, Possible pre-op clearance -cardiology input appreciated- added BB -UA + protein -Echo and carotid US ordered -will monitor BP closely *Diabetes Mellitus, uncontrolled- BS improving No anion gap BGMs, Novolog sliding scale Diabetic diet Levemir dose increased to 10 units @ hs Hgb Alc 13.1 Cot Assembler consult ordered * Hyponatremia - resolved - on IVF * Low Mg level - Replaced - will f/u on mg level in am *F.E.N. Fluids: IVF Electrolytes: monitor Nutrition: diabetic diet Prophylaxis DVT: Heparin TID GI: Protonix Disposition: full code. On discharge will need PCP assignment as pt states she does not have PCP. Visit type - Emergency Visit Emergency Visit: Yes ED Registration Date: 03/19/17 Care time: The patient presented to the Emergency Department on the above date and was hospitalized for further evaluation of their emergent condition. - New Patient This patient is new to me today: Yes Date on this admission: 03/20/17 - Critical Care Critical Care patient: No
[2017-03-20 08:26] LABS: ALBUMIN 1.7 g/dl (3.4-5.0); ALK PHOS 65 U/L (45-117); ANION GAP 7 (8-16); BILIRUBIN,TOTAL 0.6 mg/dL (0.2-1.0); BLOOD UREA NITROGEN 15 mg/dL (7-18); CALCIUM 7.6 mg/dL (8.5-10.1); CHLORIDE 104 mmol/L (98-107); CHOLESTEROL 292 mg/dL (50-200); CO2 28 mmol/L (21-32); CREATININE 0.7 mg/dL (0.55-1.02); GLUCOSE,RANDOM 144 mg/dL (74-106); HDL CHOLESTEROL 70 mg/dL (40-60); LDL CHOLESTEROL (ONLY SJRH) 193 mg/dL (5-100); MAGNESIUM 1.7 mg/dL (1.8-2.4); POTASSIUM 3.8 mmol/L (3.5-5.1); SGOT/AST 6 U/L (15-37); SGPT/ALT 10 U/L (12-78); SODIUM 139 mmol/L (136-145); TOT PROT 5.2 g/dl (6.4-8.2); TRIGLYCERIDES 98 mg/dL (35-160)
--- NOTE | 2017-03-20 09:23 | PN ---
Progress Note, Physician History of Present Illness: stable doing well wbc has normalized patient feeling weel imaging studies done--report awaited - Current Medication List Current Medications: Active Medications Acetaminophen (Tylenol -) 650 mg PO Q6H PRN PRN Reason: PAIN Last Admin: 03/20/17 01:09 Dose: 650 mg Amlodipine Besylate (Norvasc -) 5 mg PO DAILY [facility] Aspirin (Ecotrin -) 81 mg PO DAILY [facility] Last Admin: 03/19/17 21:44 Dose: 81 mg Atorvastatin Calcium (Lipitor -) 80 mg PO HS [facility] Last Admin: 03/19/17 21:45 Dose: 80 mg Heparin Sodium (Porcine) (Heparin -) 5,000 unit SQ TID [facility] Last Admin: 03/20/17 06:49 Dose: 5,000 unit Sodium Chloride (Normal Saline -) 1,000 mls @ 75 mls/hr IV ASDIR [facility] Last Admin: 03/19/17 19:13 Dose: 75 mls/hr Ertapenem 1 gm/ Sodium (Chloride) 100 mls @ 100 mls/hr IVPB DAILY [facility] PRN Reason: Protocol Last Admin: 03/19/17 21:44 Dose: 100 mls/hr Insulin Aspart (Novolog Vial Sliding Scale -) 1 vial SQ ACHS [facility] PRN Reason: Protocol Last Admin: 03/20/17 06:49 Dose: Not Given Insulin Detemir (Levemir Vial) 5 units SQ HS [facility] Last Admin: 03/19/17 21:48 Dose: 5 unit Lisinopril (Prinivil) 10 mg PO DAILY [facility] Magnesium Sulfate (Magnesium Sulfate) 1 gm IVPB ONCE ONE Stop: 03/20/17 09:31 Morphine Sulfate (Morphine Injection -) 1 mg SQ Q6H PRN PRN Reason: PAIN LEVEL 6-10 Ondansetron HCl (Zofran Injection) 4 mg IVPUSH Q6H PRN PRN Reason: NAUSEA AND/OR VOMITING Last Admin: 03/19/17 19:05 Dose: 4 mg Pantoprazole Sodium (Protonix -) 40 mg PO DAILY [facility] - Objective Vital Signs: Vital Signs Temperature 97.7 F 03/20/17 05:42 Pulse Rate 91 H 03/20/17 05:42 Respiratory Rate 20 03/20/17 05:42 Blood Pressure 144/86 03/20/17 05:42 O2 Sat by Pulse Oximetry (%) 98 01/14/18 00:33 Constitutional: Yes: No Distress, Calm Cardiovascular: Yes: Regular Rate and Rhythm Respiratory: Yes: Regular, CTA Bilaterally Gastrointestinal: Yes: Normal Bowel Sounds, Soft Musculoskeletal: Yes: Other Extremities: Yes: Other Neurological: Yes: Alert, Oriented Psychiatric: Yes: Alert, Oriented Labs: CBC, BMP 03/20/17 06:00 03/20/17 06:00 INR, PTT INR 1.04 (0.82-1.09) 03/19/17 10:37 Assessment/Plan non compliant patient with multiple medical problems coming with inability to walk and with probable osteo of the rt heel and wound on the left heel dm htn pvd probable osteo of the rt heel plan await for rusty results continue current mgmt once we have mri result then we willd ecide further mgmt rest as per primary
[2017-03-20] MEDS ORDERED: MAGNESIUM SULF 50% (8.12 MEQ/2 ML-1 GM VIAL) IVPB ONE (09:30)
[2017-03-20] MEDS: ERTAPENEM SODIUM 1 GM in SODIUM CHLORIDE 100 ML IVPB SCH (10:08)
[2017-03-20] MEDS: LISINOPRIL 10 MG TABLET (FP) PO SCH (10:09)
[2017-03-20] MEDS: amLODIPine BESYLATE 5 MG TABLET (FP) PO SCH (10:09)
[2017-03-20] MEDS: ASPIRIN COATED 81 MG TABLET.EC PO SCH (10:09)
[2017-03-20] MEDS: PANTOPRAZOLE 40 MG TABLET (FP) PO SCH (10:09)
--- NOTE | 2017-03-20 13:29 | PN ---
Progress Note (short form) - Note Progress Note: Chief Complaint: Events noted, notes reviewed, progressive bilateral lower extremity parasthesia and discomfit, uncontrolled blood pressure and diabetes mellitus History of Present Illness: Seen and examined on telemetry. Full consult dictated Medications: Current Medications Acetaminophen (Tylenol -) 650 mg PO Q6H PRN PRN Reason: PAIN Last Admin: 03/20/17 10:09 Dose: 650 mg Amlodipine Besylate (Norvasc -) 5 mg PO DAILY [facility] Last Admin: 03/20/17 10:09 Dose: 5 mg Aspirin (Ecotrin -) 81 mg PO DAILY [facility] Last Admin: 03/20/17 10:09 Dose: 81 mg Atorvastatin Calcium (Lipitor -) 80 mg PO HS [facility] Last Admin: 03/19/17 21:45 Dose: 80 mg Heparin Sodium (Porcine) (Heparin -) 5,000 unit SQ TID [facility]CLUD[facility] Last Admin: 03/20/17 06:49 Dose: 5,000 unit Sodium Chloride (Normal Saline -) 1,000 mls @ 75 mls/hr IV ASDIR COUNT INCLUDES [facility] Last Admin: 03/19/17 19:13 Dose: 75 mls/hr Ertapenem 1 gm/ Sodium (Chloride) 100 mls @ 100 mls/hr IVPB DAILY [facility] PRN Reason: Protocol Last Admin: 03/20/17 10:08 Dose: 100 mls/hr Insulin Aspart (Novolog Vial Sliding Scale -) 1 vial SQ ACHS [facility] PRN Reason: Protocol Last Admin: 03/20/17 12:09 Dose: 7 units Insulin Detemir (Levemir Vial) 5 units SQ HS [facility] Last Admin: 03/19/17 21:48 Dose: 5 unit Lisinopril (Prinivil) 10 mg PO DAILY [facility] Last Admin: 03/20/17 10:09 Dose: 10 mg Morphine Sulfate (Morphine Injection -) 1 mg SQ Q6H PRN PRN Reason: PAIN LEVEL 6-10 Ondansetron HCl (Zofran Injection) 4 mg IVPUSH Q6H PRN PRN Reason: NAUSEA AND/OR VOMITING Last Admin: 03/19/17 19:05 Dose: 4 mg Pantoprazole Sodium (Protonix -) 40 mg PO DAILY [facility] Last Admin: 03/20/17 10:09 Dose: 40 mg Review of Systems Cardiovascular: As noted above Respiratory: denies: denies: Cough or Sputum Production Gastrointestinal: denies: Nausea, vomiting, Diarrhea, Constipation and Abdominal Discomfort Musculoskeletal: as noted above Endocrine: No Symptoms Reported Vital Signs: Last Vital Signs Temp Pulse Resp BP Pulse Ox 97.7 F 91 H 20 144/86 99 03/20/17 05:42 03/20/17 05:42 03/20/17 05:42 03/20/17 05:42 03/20/17 09:00 Intake & Output 03/17/17 03/18/17 03/19/17 03/20/17 23:59 23:59 23:59 23:59 Intake Total 925 Balance 925 Weight 160 lb 1.6 oz 160 lb 6.4 oz Constitutional: No Distress, Calm Neck: Supple Negative JVD Respiratory: Clear to A&P Bilaterally Cardiovascular: S1 S2 Regular Rate Rhythm Grade 2/6 CONSUELO Gastrointestinal: Soft Benign Normal Bowel Sounds Ext: Negative Edema Bilateral Heal Ulcers, No Palpable Distal Pulses, 1-2+ Bilateral Femoral Pulses Labs: CBC, BMP 03/20/17 06:00 03/20/17 06:00 Hepatic Panel Total Bilirubin 0.6 mg/dL (0.2-1.0) 03/20/17 06:00 AST 6 U/L (15-37) L D 03/20/17 06:00 ALT 10 U/L (12-78) L D 03/20/17 06:00 Alkaline Phosphatase 65 U/L (45-117) D 03/20/17 06:00 Albumin 1.7 g/dl (3.4-5.0) L D 03/20/17 06:00 INR, PTT INR 1.04 (0.82-1.09) 03/19/17 10:37 Assessment/Plan ASSESSMENT: 1. Clinical presentation is consistent with symptomatic PAD with non-healing bilateral heal ulcers 2. Bilateral lower extremity parasthesia, possible diabetic neuropathy 3. 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 Diastolic LV dysfunction with class 0-I NYHA classification LV failure, compensated/euvolemic 5. Heart murmur related to aortic valve disease/sclerosis 6. HTN, uncontrolled 7. DM, uncontrolled 8. Hypercholesterolemia 9. Anemia 10. Poor compliance with medical F/U PLAN: 1. Continue ASA 2. Continue Norvasc 3. Continue Prinivil 4. Add B-Blockers 5. Continue Lipitor 6. Aggressive diabetes mellitus management 7. Carotid Doppler study 8. Echocardiography to evaluate LV size and function and the above noted valvular pathology 9. Vascular evaluation for the above noted presentation and if intervention is planned, recommend pharmacologic MPI study for risk stratification prior to procedure Thank you for the consult Sandi Guevara M.D.
[2017-03-20] MEDS: METOPROLOL SUCCINATE 25 MG TAB.SR.24H (FP) PO SCH (15:36)
[2017-03-20] MEDS: SODIUM CHLORIDE 1,000 ML IV SCH (16:41)
--- NOTE | 2017-03-20 16:52 | CONS ---
DATE OF CONSULTATION: 03/20/2017 CONSULTATION REQUESTED BY: Hospitalist. CHIEF COMPLAINT: Bilateral lower extremity discomfort, paresthesia, evaluation of hypertensive cardiovascular disease. A 51-year-old female of descent with known history of hypertensive cardiovascular disease, currently on no medical therapy, diabetes mellitus, currently on no medical therapy, and probable hypercholesterolemia, currently on no medical therapy, and poor compliance with medical evaluation and followup, who presented to [facility] with progressive bilateral lower extremity discomfort and paresthesia. Upon evaluation in the emergency room, patient was noted to have evidence of bilateral nonhealing ulcers related to peripheral vascular disease, evaluation of which is currently in progress. Patient, in addition, was noted to have persistently elevated blood pressure measurements, in view of which cardiovascular evaluation was requested. Upon questioning the patient, as noted above, patient has not been seen by a physician in several years. The patient reports dyspnea with mild to moderate physical exertion. Patient denies any chest discomfort. Patient denies any orthopnea, paroxysmal nocturnal dyspnea, or peripheral edema. Patient denies any palpitations, dizziness, lightheadedness, or syncope. PAST MEDICAL HISTORY: Hypertensive cardiovascular disease, currently on no medical therapy; diabetes mellitus, currently on no medical therapy; probable hypercholesterolemia, currently on no medical therapy. PAST SURGICAL HISTORY: section. SOCIAL HISTORY: Denies smoking. 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 FAMILY HISTORY: Positive coronary artery disease, hypertensive cardiovascular disease, and diabetes mellitus. ALLERGIES: To PENICILLIN. MEDICAL THERAPY AT HOME: None. Medical therapy currently includes acetaminophen 650 mg every 6 hours as needed, Norvasc 5 mg once a day, Ecotrin 81 mg once a day, Lipitor 80 mg once a day, subcutaneous heparin 5000 units 3 times a day. Normal saline 75 mL per hour, ertapenem 1 g once a day, insulin coverage, lisinopril 10 mg once a day, morphine sulfate injection 1 mg every 6 hours as needed, Zofran 4 mg IV every 6 hours as needed, Protonix 40 mg once a day. REVIEW OF SYSTEMS: Head and Neck: Denies headache, photophobia, blurring of vision. Respiratory: No cough or sputum production. Cardiovascular: As noted above. Gastrointestinal: Denies nausea, vomiting, diarrhea, abdominal discomfort. Genitourinary: No symptoms reported. Musculoskeletal: As noted above. PHYSICAL EXAMINATION: Vital Signs: Blood pressure is 144/86 mmHg. Pulse rate is 91 beats per minute. Temperature 97.7. Head and Neck: Pupils equal, react to light and accommodation. Extraocular muscles are intact. Anicteric sclerae. Negative JVD. Bilateral soft bruit, probably transmitted murmur. Chest: Clear to auscultation and percussion. Cardiovascular: S1, S2 regular. Grade 2/6 systolic ejection murmur. No clicks or gallops. Abdomen: Soft, benign. Normoactive bowel sound. Extremities: Negative edema. Bilateral heel ulcers were noted. No palpable distal pulses. 1 to 2+ bilateral femoral pulses. CBC revealed white cell count 9.6, hemoglobin 10.7, platelet count 300. Basic metabolic profile with a sodium 139, potassium 3.8, BUN 15, creatinine 0.7, glucose 144. Cholesterol 292, LDL 193, HDL 70, triglyceride 98, hemoglobin A1c 13.1, INR 1.04. Aortic and lower extremity CTA report was noted. ASSESSMENT: 1. Clinical presentation is consistent with symptomatic peripheral vascular disease with bilateral non-healing ulcers. 2. Bilateral lower extremity paresthesia, possible diabetic neuropathy. 3. Probable coronary artery disease. 4. Diastolic ventricular dysfunction with class 0 to 1 [place] [employer] classification left ventricular failure, compensated/euvolemic. 5. Heart murmur related to aortic valve disease, probable aortic valve sclerosis. 6. Hypertensive cardiovascular disease, uncontrolled. 7. Diabetes mellitus, uncontrolled. 8. Hypercholesterolemia. 9. Anemia. 10. Carotid bruit. Carotid stenosis to be excluded. 11. Poor compliance with medical followup. RECOMMENDATION: 1. Continue aspirin as initiated. 2. Continue Norvasc as initiated. 3. Continue Prinivil as initiated. 4. Addition of beta janeth. 5. Continuation of Lipitor as initiated. 6. Aggressive management of diabetes mellitus. 7. Carotid Doppler study for evaluation of the above-noted carotid bruit. 8. Echocardiography for evaluation of left ventricular size and function and the above- noted valvular pathology. 9. Vascular evaluation for the above-noted presentation and, if intervention is planned, recommend pharmacologic myocardial perfusion imaging study for risk stratification prior to proceeding. Thank you for your kind referral. JUVENTINO PRATER M.D. [id number]
[2017-03-20] MEDS ORDERED: INSULIN (NOVOLOG) ASPART 100 UNITS/ML 10ML VIAL ONE ×2 (18:30→20:51)
[2017-03-20] MEDS: INSULIN DETEMIR 100 UNITS/ML MDV SQ SCH (21:48)
[2017-03-20] MEDS: ATORVASTATIN CA 80 MG TABLET (FP) PO SCH (21:48)
[2017-03-21] MEDS ORDERED: oxyCODONE HCL 5 MG TABLET PO ONE (01:21)
[2017-03-21] MEDS: INSULIN SLIDING SCALE (NOVOLOG) 1 VIAL SQ SCH ×4 (07:08→22:41)
[2017-03-21] MEDS: HEPARIN NA (PORCINE) 5,000 UNITS/ML 1ML VIAL SQ SCH ×3 (07:09→22:45)
[2017-03-21] MEDS: LISINOPRIL 10 MG TABLET (FP) PO SCH (09:26)
[2017-03-21] MEDS: PANTOPRAZOLE 40 MG TABLET (FP) PO SCH (09:26)
[2017-03-21] MEDS: amLODIPine BESYLATE 5 MG TABLET (FP) PO SCH (09:27)
[2017-03-21] MEDS: ERTAPENEM SODIUM 1 GM in SODIUM CHLORIDE 100 ML IVPB SCH (09:27)
[2017-03-21] MEDS: METOPROLOL SUCCINATE 25 MG TAB.SR.24H (FP) PO SCH (09:27)
[2017-03-21] MEDS: ASPIRIN COATED 81 MG TABLET.EC PO SCH (09:27)
--- NOTE | 2017-03-21 10:00 | PN ---
Progress Note, Physician History of Present Illness: Continued heel pain right > left. - Current Medication List Current Medications: Active Medications Acetaminophen (Tylenol -) 650 mg PO Q6H PRN PRN Reason: PAIN Last Admin: 03/20/17 20:06 Dose: 650 mg Amlodipine Besylate (Norvasc -) 5 mg PO DAILY [facility] Last Admin: 03/21/17 09:27 Dose: 5 mg Aspirin (Ecotrin -) 81 mg PO DAILY [facility] Last Admin: 03/21/17 09:27 Dose: 81 mg Atorvastatin Calcium (Lipitor -) 80 mg PO HS [facility] Last Admin: 03/20/17 21:48 Dose: 80 mg Heparin Sodium (Porcine) (Heparin -) 5,000 unit SQ TID [facility] Last Admin: 03/21/17 07:09 Dose: 5,000 unit Sodium Chloride (Normal Saline -) 1,000 mls @ 75 mls/hr IV ASDIR [facility] Last Admin: 03/20/17 16:41 Dose: 75 mls/hr Ertapenem 1 gm/ Sodium (Chloride) 100 mls @ 100 mls/hr IVPB DAILY [facility] PRN Reason: Protocol Last Admin: 03/21/17 09:27 Dose: 100 mls/hr Insulin Aspart (Novolog Vial Sliding Scale -) 1 vial SQ ACHS [facility] PRN Reason: Protocol Last Admin: 03/21/17 07:08 Dose: Not Given Insulin Detemir (Levemir Vial) 10 units SQ HS [facility] Last Admin: 03/20/17 21:48 Dose: 10 unit Lisinopril (Prinivil) 10 mg PO DAILY [facility] Last Admin: 03/21/17 09:26 Dose: 10 mg Metoprolol Succinate (Toprol Xl -) 25 mg PO DAILY [facility] Last Admin: 03/21/17 09:27 Dose: 25 mg Morphine Sulfate (Morphine Injection -) 1 mg SQ Q6H PRN PRN Reason: PAIN LEVEL 6-10 Ondansetron HCl (Zofran Injection) 4 mg IVPUSH Q6H PRN PRN Reason: NAUSEA AND/OR VOMITING Last Admin: 03/19/17 19:05 Dose: 4 mg Pantoprazole Sodium (Protonix -) 40 mg PO DAILY [facility] Last Admin: 03/21/17 09:26 Dose: 40 mg - Objective Vital Signs: Vital Signs Temperature 97.7 F 03/21/17 06:00 Pulse Rate 88 03/21/17 06:00 Respiratory Rate 20 03/21/17 06:00 Blood Pressure 178/95 03/21/17 06:00 O2 Sat by Pulse Oximetry (%) 99 03/20/17 22:04 Constitutional: Yes: No Distress, Calm, Thin Neck: Yes: Supple Cardiovascular: Yes: Regular Rate and Rhythm Respiratory: Yes: Regular, CTA Bilaterally Gastrointestinal: Yes: Normal Bowel Sounds, Soft Edema: No Labs: CBC, BMP 03/20/17 06:00 03/20/17 06:00 INR, PTT INR 1.04 (0.82-1.09) 03/19/17 10:37 Problem List - Problems (1) Hyperlipidemia associated with type 2 diabetes mellitus Code(s): E11.69 - TYPE 2 DIABETES MELLITUS WITH OTHER SPECIFIED COMPLICATION; E78.5 - HYPERLIPIDEMIA, UNSPECIFIED (2) Type 2 diabetes mellitus Code(s): E11.9 - TYPE 2 DIABETES MELLITUS WITHOUT COMPLICATIONS Qualifiers: Diabetes mellitus complication status: with circulatory complication Diabetes mellitus complication detail: with peripheral angiopathy with gangrene Diabetes mellitus retirement insulin use: without termite inspector use Qualified Code(s): E11.52 - Type 2 diabetes mellitus with diabetic peripheral angiopathy with gangrene (3) Hypertensive urgency Code(s): I16.0 - HYPERTENSIVE URGENCY (4) Femoral-popliteal artery atherosclerosis Code(s): I70.209 - UNSP ATHSCL LAC VIEUX ARTERIES OF EXTREMITIES, UNSP EXTREMITY (5) Poor compliance Code(s): Z91.19 - PATIENT'S NONCOMPLIANCE W OTH MEDICAL TREATMENT AND REGIMEN (6) PVD (peripheral vascular disease) Code(s): I73.9 - PERIPHERAL VASCULAR DISEASE, UNSPECIFIED (7) Foot ulcer Code(s): L97.509 - NON-PRESSURE CHRONIC ULCER OTH PRT UNSP FOOT W UNSP SEVERITY Qualifiers: Laterality: unspecified laterality Non-pressure ulcer stage: unspecified non-pressure ulcer stage Qualified Code(s): L97.509 - Non-pressure chronic ulcer of other part of unspecified foot with unspecified severity Assessment/Plan 1. Clinical presentation is consistent with symptomatic bilateral fem-pop PAD with non-healing bilateral heel ulcers R>L c/w chronic limb ischemia 2. Bilateral lower extremity parasthesia, possible diabetic neuropathy 3. 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 Diastolic LV dysfunction with class 0-I NYHA classification LV failure, compensated/euvolemic 5. Heart murmur related to aortic valve disease/sclerosis 6. HTN, uncontrolled 7. DM, uncontrolled 8. Hypercholesterolemia uncontrolled 9. Anemia 10. Poor compliance with medical F/U PLAN: 1. Continue ASA 81 qd 2. Continue Norvasc 5 qd 3. Increase Prinivil 20 qd 4. Change carvedilol 6.25 bid 5. Continue Lipitor 80 qhs and add Zetia 10 qd, may be candidate for PCSK9 if target LDL can't be reached 6. Aggressive diabetes mellitus management 7. Carotid Doppler study shows nonobstructive disease 8. Echocardiography to evaluate LV size and function and the above noted valvular pathology 9. Vascular evaluation for the above noted presentation and if intervention is planned, recommend pharmacologic MPI study for risk stratification prior to procedure as patient's clinical history conveys CAD equivalence 10. F/u MRI, abx course for possible heel osteomyelitis
--- NOTE | 2017-03-21 11:27 | PN ---
Progress Note (short form) - Note Progress Note: Vascular surgery Pt seen and examined. Right heel eschar, for some time. CTA reviewed -- right distal sfa, popliteal disease. Will need angiogram, angioplasty to try to bring more blood flow to the heel. Cardiology to optimize. Chato Byrnes DO
[2017-03-21] MEDS: ACETAMINOPHEN 325 MG TABLET (FP) PO PRN ×2 (12:08→23:04)
[2017-03-21] MEDS: CARVEDILOL 6.25 MG TABLET (FP) PO SCH ×2 (12:09→22:46)
[2017-03-21] MEDS ORDERED: GABAPENTIN 300 MG CAPSULE (FP) PO ONE ×2 (14:30→17:45)
--- NOTE | 2017-03-21 14:34 | PN ---
Physical Exam: SUBJECTIVE: Patient seen and examined. She complaints of consistent pain to the bottom b/l feet. She cannot stand w/o pain, morphine helps but it makes her ill. OBJECTIVE: Vital Signs Period Temp Pulse Resp BP Sys/Rahman Pulse Ox Last 24 Hr 97.7 F-99 F 86-92 20-20 132-178/67-95 98-99 PE Neuro: alert, awake, cn 2-12intact Pulm: CTAB CV: s1 s2 rrr no mrg Abd: s nt nd +bs Ext: L heel echar, le tenderness, skin changes Laboratory Results - last 24 hr 03/20/17 03/20/17 03/21/17 16:39 21:44 07:07 POC Glucometer 197 260 111 03/21/17 11:36 POC Glucometer 139 Active Medications Generic Name Dose Route Start Last Admin Trade Name Freq PRN Reason Stop Dose Admin Acetaminophen 650 mg 03/20/17 00:35 03/21/17 12:08 Tylenol - PO 650 mg Q6H PRN Administration PAIN Amlodipine Besylate 5 mg 03/20/17 10:00 03/21/17 09:27 Norvasc - PO 5 mg DAILY JESS[facility] Administration Aspirin 81 mg 03/19/17 17:45 03/21/17 09:27 Ecotrin - PO 81 mg DAILY [facility] Administration Atorvastatin Calcium 80 mg 03/19/17 22:00 03/20/17 21:48 Lipitor - PO 80 mg HS JESSICA Administration Carvedilol 6.25 mg 03/21/17 10:30 03/21/17 12:09 Coreg - PO 6.25 mg BID JESSICA Administration Gabapentin 300 mg 03/21/17 14:30 Neurontin - PO 03/21/17 14:31 ONCE ONE Gabapentin 300 mg 03/22/17 10:00 Neurontin - PO 03/23/17 09:59 BID JESSICA Gabapentin 300 mg 03/23/17 10:00 Neurontin - PO TID JESSICA Heparin Sodium (Porcine) 5,000 unit 03/19/17 22:00 03/21/17 13:46 Heparin - SQ 5,000 unit TID JESS[facility] Administration Sodium Chloride 1,000 mls @ 75 mls/hr 03/19/17 16:15 03/20/17 16:41 Normal Saline - IV 75 mls/hr ASDIR JESS[facility] Administration Ertapenem 1 gm/ Sodium 100 mls @ 100 mls/hr 03/19/17 17:00 03/21/17 09:27 Chloride IVPB 100 mls/hr DAILY [facility] Administration Protocol Insulin Aspart 1 vial 03/19/17 16:30 03/21/17 11:37 Novolog Vial Sliding Scale - SQ Not Given ACHS [facility] Protocol Insulin Detemir 10 units 03/20/17 15:29 03/20/17 21:48 Levemir Vial SQ 10 unit HS [facility] Administration Lisinopril 20 mg 03/21/17 10:17 Prinivil PO DAILY [facility] Morphine Sulfate 1 mg 03/19/17 16:06 Morphine Injection - SQ Q6H PRN PAIN LEVEL 6-10 Ondansetron HCl 4 mg 03/19/17 16:08 03/19/17 19:05 Zofran Injection IVPUSH 4 mg Q6H PRN Administration NAUSEA AND/OR VOMITING Pantoprazole Sodium 40 mg 03/20/17 10:00 03/21/17 09:26 Protonix - PO 40 mg DAILY [facility] Administration Microbiology 03/19/17 10:35 Blood Culture - Preliminary Blood - Peripheral Venous NO GROWTH OBTAINED AFTER 48 HOURS, INCUBATION TO CONTINUE FOR 3 DAYS. 03/19/17 10:35 Blood Culture - Preliminary Blood - Peripheral Venous NO GROWTH OBTAINED AFTER 48 HOURS, INCUBATION TO CONTINUE FOR 3 DAYS. Assessment: 51 year old female with pmhx of HTN, uncontrolled DM diabetes (on no meds) and depression worsening lower extremity pain and eval of b/l heels. Plan: 1. Sepsis secondary to diabetic wounds - Sepsis resolving - Negative for osteo - Continue Ertapenem per ID - Blood cx NGTD, urine pending 2. PVD with severe stenosis - CTA shows right distal sfa, popliteal disease - Pending cardiac optimization, for surgery tue/ with vascular - ASA - Lipitor 80mg HD - Zetia 10mg daily - Consider PSCK9 if LDL cannot be reached, defer to cards 3. Diabetic neuropathy - Start gabapentin today 300mg, tomorrow BID, Wed TID - Monitor for response 4. Diastolic LV dysfunction - Appears euovolemic - On coreg - ECHO ordered 5. HTN - Elevated, however pain under controlled - Lisinopril 20mg daily - Changed Coreg 6.25mg BID - Increase norvasc 10mg daily 6. DM II, uncontrolled - Sugars stable - Levemir 10units hs - ISS, BGM ACHS 7. DVT - Heparin sq q8 Visit type - Emergency Visit Emergency Visit: Yes ED Registration Date: 03/19/17 Care time: The patient presented to the Emergency Department on the above date and was hospitalized for further evaluation of their emergent condition. - New Patient This patient is new to me today: Yes Date on this admission: 03/21/17 - Critical Care Critical Care patient: No
[2017-03-21] MEDS: amLODIPine BESYLATE 10 MG TABLET (FP) PO SCH (17:33)
[2017-03-21] MEDS ORDERED: PT OWN MED DRAWER 7, Y5N ONE (17:58)
[2017-03-21] MEDS: INSULIN DETEMIR 100 UNITS/ML MDV SQ SCH (22:42)
[2017-03-21] MEDS: ATORVASTATIN CA 80 MG TABLET (FP) PO SCH (22:46)
[2017-03-22] MEDS: INSULIN SLIDING SCALE (NOVOLOG) 1 VIAL SQ SCH ×4 (07:08→22:50)
[2017-03-22] MEDS: HEPARIN NA (PORCINE) 5,000 UNITS/ML 1ML VIAL SQ SCH ×3 (07:08→22:47)
[2017-03-22] MEDS ORDERED: INSULIN (NOVOLOG) ASPART 100 UNITS/ML 10ML VIAL ONE ×2 (07:16→12:38)
[2017-03-22 07:48] LABS: HEMOGLOBIN 10.7 GM/dL (10.7-15.3); MCH 28.7 pg (25.7-33.7); MCHC 33.4 g/dl (32.0-36.0); MEAN CELL VOLUME 85.8 fl (80-96); MEAN PLT VOLUME 8.1 fl (7.5-11.1); PLATELET COUNT 320 K/MM3 (134-434); RBC 3.73 M/mm3 (3.60-5.2); RDW 13.4 % (11.6-15.6); WHITE BLOOD COUNT 8.6 K/mm3 (4.0-10.0)
[2017-03-22 08:03] LABS: ANION GAP 7 (8-16); BLOOD UREA NITROGEN 9 mg/dL (7-18); CALCIUM 7.9 mg/dL (8.5-10.1); CHLORIDE 105 mmol/L (98-107); CO2 29 mmol/L (21-32); GLUCOSE,RANDOM 100 mg/dL (74-106); MAGNESIUM 1.6 mg/dL (1.8-2.4); SODIUM 141 mmol/L (136-145)
[2017-03-22 08:04] LABS: CREATININE 0.6 mg/dL (0.55-1.02)
--- NOTE | 2017-03-22 09:50 | PN ---
Progress Note (short form) - Note Progress Note: Chief Complaint: Events noted, notes reviewed, bilateral lower extremity parasthesia and discomfit persists, denies any chest pain or dyspnea History of Present Illness: Seen and examined. Events noted, notes reviewed, bilateral lower extremity parasthesia and discomfit persists, denies any chest pain or dyspnea Echocardiography revealed MAC, AV sclerosis, normal LV and RV size and function , trace MR Medications: Current Medications Acetaminophen (Tylenol -) 650 mg PO Q6H PRN PRN Reason: PAIN Last Admin: 03/21/17 23:04 Dose: 650 mg Amlodipine Besylate (Norvasc -) 10 mg PO DAILY [facility] Last Admin: 03/21/17 17:33 Dose: 10 mg Aspirin (Ecotrin -) 81 mg PO DAILY [facility] Last Admin: 03/21/17 09:27 Dose: 81 mg Atorvastatin Calcium (Lipitor -) 80 mg PO HS [facility] Last Admin: 03/21/17 22:46 Dose: 80 mg Carvedilol (Coreg -) 6.25 mg PO BID [facility] Last Admin: 03/21/17 22:46 Dose: 6.25 mg Gabapentin (Neurontin -) 300 mg PO BID [facility] Stop: 03/23/17 09:59 Gabapentin (Neurontin -) 300 mg PO TID [facility] Heparin Sodium (Porcine) (Heparin -) 5,000 unit SQ TID [facility] Last Admin: 03/22/17 07:08 Dose: 5,000 unit Ertapenem 1 gm/ Sodium (Chloride) 100 mls @ 100 mls/hr IVPB DAILY [facility] PRN Reason: Protocol Last Admin: 03/21/17 09:27 Dose: 100 mls/hr Insulin Aspart (Novolog Vial Sliding Scale -) 1 vial SQ ACHS [facility] PRN Reason: Protocol Last Admin: 03/22/17 07:08 Dose: Not Given Insulin Detemir (Levemir Vial) 10 units SQ HS [facility] Last Admin: 03/21/17 22:42 Dose: 10 unit Lisinopril (Prinivil) 20 mg PO DAILY [facility] Morphine Sulfate (Morphine Injection -) 1 mg SQ Q6H PRN PRN Reason: PAIN LEVEL 6-10 Ondansetron HCl (Zofran Injection) 4 mg IVPUSH Q6H PRN PRN Reason: NAUSEA AND/OR VOMITING Last Admin: 03/19/17 19:05 Dose: 4 mg Review of Systems Cardiovascular: As noted above Respiratory: denies: denies: Cough or Sputum Production Gastrointestinal: denies: Nausea, vomiting, Diarrhea, Constipation and Abdominal Discomfort Musculoskeletal: as noted above Endocrine: No Symptoms Reported Vital Signs: Last Vital Signs Temp Pulse Resp BP Pulse Ox 98.4 F 87 20 144/75 94 L 03/22/17 06:00 03/22/17 06:00 03/22/17 06:00 03/22/17 06:00 03/21/17 21:00 Intake & Output 03/19/17 03/20/17 03/21/17 03/22/17 23:59 23:59 23:59 23:59 Intake Total 2975 1165 0 Balance 2975 1165 0 Weight 160 lb 1.6 oz 160 lb 6.4 oz 164 lb 14.4 oz Constitutional: No Distress, Calm Neck: Supple Negative JVD Respiratory: Clear to A&P Bilaterally Cardiovascular: S1 S2 Regular Rate Rhythm Grade 2/6 CONSUELO Gastrointestinal: Soft Benign Normal Bowel Sounds Ext: Negative Edema Bilateral Heal Ulcers, No Palpable Distal Pulses, 1-2+ Bilateral Femoral Pulses Labs: CBC, BMP 03/22/17 06:00 03/22/17 06:00 Hepatic Panel Total Bilirubin 0.6 mg/dL (0.2-1.0) 03/20/17 06:00 AST 6 U/L (15-37) L D 03/20/17 06:00 ALT 10 U/L (12-78) L D 03/20/17 06:00 Alkaline Phosphatase 65 U/L (45-117) D 03/20/17 06:00 Albumin 1.7 g/dl (3.4-5.0) L D 03/20/17 06:00 INR, PTT INR 1.04 (0.82-1.09) 03/19/17 10:37 Assessment/Plan ASSESSMENT: 1. Symptomatic PAD with non-healing bilateral heal ulcers for angiography and possible intervention 2. Bilateral lower extremity parasthesia, possible diabetic neuropathy 3. 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 Diastolic LV dysfunction with class 0-I NYHA classification LV failure, compensated/euvolemic 5. Heart murmur related to aortic valve sclerosis 6. HTN 7. DM 8. Hypercholesterolemia 9. Anemia 10. Poor compliance with medical F/U PLAN: 1. Continue ASA 2. Continue Norvasc 3. Continue Prinivil 4. Continue Coreg and titrate dosage as tolerated 5. Continue Lipitor 6. Aggressive diabetes mellitus management 7. There are no absolute contraindication in proceeding with planned vascular intervention considering that there is no evidence clinical evidence of acute coronary syndrome and/or congestive heart failure and/or malignant ventricular arrhythmia Sandi Guevara M.D.
[2017-03-22] MEDS ORDERED: MAGNESIUM SULF 50% (8.12 MEQ/2 ML-1 GM VIAL) IVPB ONE (10:46)
--- NOTE | 2017-03-22 10:49 | PN ---
Progress Note, Physician History of Present Illness: stable doing well vascular on case pain in the legs main complaint - Current Medication List Current Medications: Active Medications Acetaminophen (Tylenol -) 650 mg PO Q6H PRN PRN Reason: PAIN Last Admin: 03/21/17 23:04 Dose: 650 mg Amlodipine Besylate (Norvasc -) 10 mg PO DAILY [facility] Last Admin: 03/21/17 17:33 Dose: 10 mg Aspirin (Ecotrin -) 81 mg PO DAILY [facility] Last Admin: 03/21/17 09:27 Dose: 81 mg Atorvastatin Calcium (Lipitor -) 80 mg PO HS [facility] Last Admin: 03/21/17 22:46 Dose: 80 mg Carvedilol (Coreg -) 12.5 mg PO BID [facility] Gabapentin (Neurontin -) 300 mg PO BID [facility] Stop: 03/23/17 09:59 Gabapentin (Neurontin -) 300 mg PO TID [facility] Heparin Sodium (Porcine) (Heparin -) 5,000 unit SQ TID [facility] Last Admin: 03/22/17 07:08 Dose: 5,000 unit Ertapenem 1 gm/ Sodium (Chloride) 100 mls @ 100 mls/hr IVPB DAILY [facility] PRN Reason: Protocol Last Admin: 03/21/17 09:27 Dose: 100 mls/hr Insulin Aspart (Novolog Vial Sliding Scale -) 1 vial SQ ACHS [facility] PRN Reason: Protocol Last Admin: 03/22/17 07:08 Dose: Not Given Insulin Detemir (Levemir Vial) 10 units SQ HS [facility] Last Admin: 03/21/17 22:42 Dose: 10 unit Lisinopril (Prinivil) 20 mg PO DAILY [facility] Morphine Sulfate (Morphine Injection -) 1 mg SQ Q6H PRN PRN Reason: PAIN LEVEL 6-10 Ondansetron HCl (Zofran Injection) 4 mg IVPUSH Q6H PRN PRN Reason: NAUSEA AND/OR VOMITING Last Admin: 03/19/17 19:05 Dose: 4 mg - Objective Vital Signs: Vital Signs Temperature 98.4 F 03/22/17 06:00 Pulse Rate 87 03/22/17 06:00 Respiratory Rate 20 03/22/17 06:00 Blood Pressure 144/75 03/22/17 06:00 O2 Sat by Pulse Oximetry (%) 94 L 03/21/17 21:00 Constitutional: Yes: No Distress, Calm Cardiovascular: Yes: Regular Rate and Rhythm Respiratory: Yes: Regular, CTA Bilaterally Gastrointestinal: Yes: Normal Bowel Sounds, Soft Musculoskeletal: Yes: Other Extremities: Yes: Other (gangrene and ulceration of the heel) Integumentary: Yes: Pressure Ulcer, Other (gangrene and ulceration of the heel) Wound/Incision: Yes: Open to air Neurological: Yes: Alert, Oriented Psychiatric: Yes: Alert, Oriented Labs: CBC, BMP 03/22/17 06:00 03/22/17 06:00 INR, PTT INR 1.04 (0.82-1.09) 03/19/17 10:37 - ....Imaging Cat Scan: Report Reviewed, Image Reviewed MRI: Report Reviewed, Image Reviewed Assessment/Plan dm htn pvdl plan continue abx for now await for final plan of vascular pressure off of heel rest as per primary team
[2017-03-22] MEDS: LISINOPRIL 20 MG TABLET (FP) PO SCH (10:50)
[2017-03-22] MEDS: GABAPENTIN 300 MG CAPSULE (FP) PO SCH ×2 (10:50→22:47)
[2017-03-22] MEDS: amLODIPine BESYLATE 10 MG TABLET (FP) PO SCH (10:50)
[2017-03-22] MEDS: ERTAPENEM SODIUM 1 GM in SODIUM CHLORIDE 100 ML IVPB SCH (10:50)
[2017-03-22] MEDS: CARVEDILOL 12.5 MG TABLET (FP) PO SCH ×2 (10:53→22:47)
[2017-03-22] MEDS: ASPIRIN COATED 81 MG TABLET.EC PO SCH (10:53)
[2017-03-22] MEDS ORDERED: MAGNESIUM 1GM/D5W - 1 GM/100 ML IVPB IVPB ONE (11:30)
[2017-03-22] MEDS: traMADol HCL 50 MG TABLET PO PRN ×2 (11:47→22:46)
[2017-03-22] MEDS: LIDOCAINE 5% TOPICAL PATCH TP SCH (11:48)
--- NOTE | 2017-03-22 12:20 | PN ---
Physical Exam: SUBJECTIVE: Patient seen and examined. She complaints of pain to bottom of feet , still weary to take narcotics d/t side effects. OBJECTIVE: Vital Signs Period Temp Pulse Resp BP Sys/Rahman Pulse Ox Last 24 Hr 98.1 F-98.7 F 87-93 16-20 144-186/75-92 94 PE Neuro: alert, awake, cn 2-12intact Pulm: CTAB CV: s1 s2 rrr no mrg Abd: s nt nd +bs Ext: L heel eschar, le tenderness to b/l feet, skin changes Laboratory Results - last 24 hr 03/21/17 03/21/17 03/22/17 16:26 22:38 06:00 WBC 8.6 RBC 3.73 Hgb 10.7 Hct 32.0 L MCV 85.8 MCH 28.7 MCHC 33.4 RDW 13.4 Plt Count 320 MPV 8.1 Sodium Potassium Chloride Carbon Dioxide Anion Gap BUN Creatinine POC Glucometer 187 224 Random Glucose Calcium Magnesium 03/22/17 03/22/17 06:00 07:06 WBC RBC Hgb Hct MCV MCH MCHC RDW Plt Count MPV Sodium 141 Potassium 4.0 Chloride 105 Carbon Dioxide 29 Anion Gap 7 L BUN 9 Creatinine 0.6 POC Glucometer 100 Random Glucose 100 Calcium 7.9 L Magnesium 1.6 L Active Medications Generic Name Dose Route Start Last Admin Trade Name Freq PRN Reason Stop Dose Admin Acetaminophen 650 mg 03/20/17 00:35 03/21/17 23:04 Tylenol - PO 650 mg Q6H PRN Administration PAIN Amlodipine Besylate 10 mg 03/21/17 17:00 03/22/17 10:50 Norvasc - PO 10 mg DAILY JESSICA Administration Aspirin 81 mg 03/19/17 17:45 03/22/17 10:53 Ecotrin - PO 81 mg DAILY JESSICA Administration Atorvastatin Calcium 80 mg 03/19/17 22:00 03/21/17 22:46 Lipitor - PO 80 mg HS JESSICA Administration Carvedilol 12.5 mg 03/22/17 10:00 03/22/17 10:53 Coreg - PO 12.5 mg BID JESSICA Administration Gabapentin 300 mg 03/22/17 10:00 03/22/17 10:50 Neurontin - PO 03/23/17 09:59 300 mg BID JESSICA Administration Gabapentin 300 mg 03/23/17 10:00 Neurontin - PO TID JESSICA Heparin Sodium (Porcine) 5,000 unit 03/19/17 22:00 03/22/17 07:08 Heparin - SQ 5,000 unit TID [facility] Administration Ertapenem 1 gm/ Sodium 100 mls @ 100 mls/hr 03/19/17 17:00 03/22/17 10:50 Chloride IVPB 100 mls/hr DAILY [facility] Administration Protocol Magnesium Sulfate/Dextrose 1 gm in 100 mls @ 100 mls/hr 03/22/17 11:30 Magnesium 1gm/D5w - IVPB 03/22/17 12:29 ONCE ONE Insulin Aspart 1 vial 03/21/17 16:35 03/22/17 07:08 Novolog Vial Sliding Scale - SQ Not Given ACHS [facility] Protocol Insulin Detemir 10 units 03/20/17 15:29 03/21/17 22:42 Levemir Vial SQ 10 unit HS JESSICA Administration Lidocaine 2 patch 03/22/17 11:00 03/22/17 11:48 Lidoderm Patch - TP 2 patch DAILY [facility] Administration Lisinopril 20 mg 03/21/17 10:17 03/22/17 10:50 Prinivil PO 20 mg DAILY [facility] Administration Miscellaneous 1 each 03/22/17 22:00 Lidoderm Patch Removal MC DAILY@2200 [facility] Ondansetron HCl 4 mg 03/19/17 16:08 03/19/17 19:05 Zofran Injection IVPUSH 4 mg Q6H PRN Administration NAUSEA AND/OR VOMITING Tramadol HCl 50 mg 03/22/17 10:50 03/22/17 11:47 Ultram - PO 50 mg Q6H PRN Administration PAIN LEVEL 6-10 Microbiology 03/19/17 13:04 Urine Culture - Final Urine - Urine Clean Catch 03/19/17 10:35 Blood Culture - Preliminary Blood - Peripheral Venous NO GROWTH OBTAINED AFTER 72 HOURS, INCUBATION TO CONTINUE FOR 2 DAYS. 03/19/17 10:35 Blood Culture - Preliminary Blood - Peripheral Venous NO GROWTH OBTAINED AFTER 72 HOURS, INCUBATION TO CONTINUE FOR 2 DAYS. MRI: negative for osteo Assessment: 51 year old female with pmhx of HTN, uncontrolled DM diabetes (on no meds) and depression worsening lower extremity pain and eval of b/l heels. Plan: 1. Sepsis secondary to diabetic wounds - Sepsis resolving - Continue Ertapenem per ID 2. PVD with severe stenosis - For angioplasty/angiogram tomorrow for right distal sfa, popliteal disease - Per cardiology no absolute contraindication in proceeding with vascular intervention - ASA - Lipitor 80mg HD - Zetia 10mg daily - Consider PSCK9 if LDL cannot be reached, defer to cards 3. Diabetic neuropathy - Started gabapentin today BID, tomorrow TID - Ultram PRN - Start Lidocain patches to feet - Monitor for response 4. Diastolic LV dysfunction - Appears euovolemic - Coreg - ECHO revealed MAC, AV sclerosis, normal LV and RV size and function, trace MR 5. HTN - Increased norvasc 10mg daily today - Lisinopril 20mg daily - Coreg 6.25mg BID 6. DM II, uncontrolled - Sugars stable - Levemir 10units hs - ISS, BGM ACHS 7. DVT - Heparin sq q8 Visit type - Emergency Visit Emergency Visit: Yes ED Registration Date: 03/19/17 Care time: The patient presented to the Emergency Department on the above date and was hospitalized for further evaluation of their emergent condition. - New Patient This patient is new to me today: No - Critical Care Critical Care patient: No
--- NOTE | 2017-03-22 14:17 | PN ---
Progress Note, Physician History of Present Illness: doing well still with numbness in the leg for surgery tomorrow heel improving - Current Medication List Current Medications: Active Medications Acetaminophen (Tylenol -) 650 mg PO Q6H PRN PRN Reason: PAIN Last Admin: 03/21/17 23:04 Dose: 650 mg Amlodipine Besylate (Norvasc -) 10 mg PO DAILY [facility] Last Admin: 03/22/17 10:50 Dose: 10 mg Aspirin (Ecotrin -) 81 mg PO DAILY [facility] Last Admin: 03/22/17 10:53 Dose: 81 mg Atorvastatin Calcium (Lipitor -) 80 mg PO HS [facility] Last Admin: 03/21/17 22:46 Dose: 80 mg Carvedilol (Coreg -) 12.5 mg PO BID [facility] Last Admin: 03/22/17 10:53 Dose: 12.5 mg Gabapentin (Neurontin -) 300 mg PO BID [facility] Stop: 03/23/17 09:59 Last Admin: 03/22/17 10:50 Dose: 300 mg Gabapentin (Neurontin -) 300 mg PO TID [facility] Heparin Sodium (Porcine) (Heparin -) 5,000 unit SQ TID [facility] Last Admin: 03/22/17 07:08 Dose: 5,000 unit Ertapenem 1 gm/ Sodium (Chloride) 100 mls @ 100 mls/hr IVPB DAILY [facility] PRN Reason: Protocol Last Admin: 03/22/17 10:50 Dose: 100 mls/hr Insulin Aspart (Novolog Vial Sliding Scale -) 1 vial SQ ACHS [facility] PRN Reason: Protocol Last Admin: 03/22/17 12:50 Dose: 2 unit Insulin Detemir (Levemir Vial) 10 units SQ HS [facility] Last Admin: 03/21/17 22:42 Dose: 10 unit Lidocaine (Lidoderm Patch -) 2 patch TP DAILY [facility] Last Admin: 03/22/17 11:48 Dose: 2 patch Lisinopril (Prinivil) 20 mg PO DAILY [facility] Last Admin: 03/22/17 10:50 Dose: 20 mg Miscellaneous (Lidoderm Patch Removal) 1 each MC DAILY@2200 [facility] Ondansetron HCl (Zofran Injection) 4 mg IVPUSH Q6H PRN PRN Reason: NAUSEA AND/OR VOMITING Last Admin: 03/19/17 19:05 Dose: 4 mg Tramadol HCl (Ultram -) 50 mg PO Q6H PRN PRN Reason: PAIN LEVEL 6-10 Last Admin: 03/22/17 11:47 Dose: 50 mg - Objective Vital Signs: Vital Signs Temperature 98.7 F 03/22/17 10:00 Pulse Rate 93 H 03/22/17 10:00 Respiratory Rate 18 03/22/17 10:00 Blood Pressure 166/80 03/22/17 10:00 O2 Sat by Pulse Oximetry (%) 95 03/22/17 09:00 Constitutional: Yes: No Distress, Calm Cardiovascular: Yes: Regular Rate and Rhythm Respiratory: Yes: Regular, CTA Bilaterally Gastrointestinal: Yes: Normal Bowel Sounds, Soft Extremities: Yes: Other Wound/Incision: Yes: Open to air Neurological: Yes: Alert, Oriented Psychiatric: Yes: Alert, Oriented Labs: CBC, BMP 03/22/17 06:00 03/22/17 06:00 INR, PTT INR 1.04 (0.82-1.09) 03/19/17 10:37 Assessment/Plan dm htn pvd sepsis plan continue abx for surgery tomorrow continue current mgt rest as per primary
--- NOTE | 2017-03-22 18:21 | PN ---
Progress Note (short form) - Note Progress Note: Vascular surgery For right lower ext angiogram sandi morning. Cleared by cardiology. NPO past midnight. Chato porter DO
[2017-03-22] MEDS ORDERED: LIDOCAINE PATCH REMOVAL MC SCH (22:00)
[2017-03-22] MEDS: ATORVASTATIN CA 80 MG TABLET (FP) PO SCH (22:47)
[2017-03-22] MEDS: INSULIN DETEMIR 100 UNITS/ML MDV SQ SCH (22:50)
[2017-03-23] MEDS: INSULIN SLIDING SCALE (NOVOLOG) 1 VIAL SQ SCH ×4 (06:28→21:37)
[2017-03-23] MEDS: HEPARIN NA (PORCINE) 5,000 UNITS/ML 1ML VIAL SQ SCH ×3 (06:30→21:31)
[2017-03-23 07:51] LABS: BASO % 1.1 % (0-2.0); EOS % 1.4 % (0-4.5); HEMATOCRIT 31.1 % (32.4-45.2); HEMOGLOBIN 10.2 GM/dL (10.7-15.3); LYMPH % 21.4 % (8-40); MCH 28.1 pg (25.7-33.7); MCHC 32.8 g/dl (32.0-36.0); MEAN CELL VOLUME 85.9 fl (80-96); MEAN PLT VOLUME 8.1 fl (7.5-11.1); MONO % 11.1 % (3.8-10.2); PLATELET COUNT 330 K/MM3 (134-434); RBC 3.62 M/mm3 (3.60-5.2); WHITE BLOOD COUNT 8.1 K/mm3 (4.0-10.0)
[2017-03-23 08:10] LABS: INR 1.02 (0.82-1.09); PROTHROMBIN TIME (PATIENT) 11.5 SEC (9.98-11.88)
[2017-03-23 08:11] LABS: ANION GAP 6 (8-16); BLOOD UREA NITROGEN 9 mg/dL (7-18); CHLORIDE 101 mmol/L (98-107); CO2 31 mmol/L (21-32); CREATININE 0.5 mg/dL (0.55-1.02); GLUCOSE,RANDOM 123 mg/dL (74-106); POTASSIUM 4.1 mmol/L (3.5-5.1); SODIUM 138 mmol/L (136-145)
[2017-03-23] MEDS ORDERED: SODIUM CHLORIDE 1,000 ML IV SCH ×2 (08:45→18:30)
[2017-03-23] MEDS ORDERED: SODIUM CHLORIDE 0.45% 1,000 ML IV SCH (08:45)
[2017-03-23] MEDS: ONDANSETRON 4 MG/2 ML VIAL IVPUSH PRN (08:57)
[2017-03-23] MEDS: amLODIPine BESYLATE 10 MG TABLET (FP) PO SCH (09:09)
[2017-03-23] MEDS: CARVEDILOL 12.5 MG TABLET (FP) PO SCH ×2 (09:09→21:30)
[2017-03-23] MEDS: LISINOPRIL 20 MG TABLET (FP) PO SCH (09:10)
[2017-03-23] MEDS: ERTAPENEM SODIUM 1 GM in SODIUM CHLORIDE 100 ML IVPB SCH (10:28)
[2017-03-23] MEDS: LIDOCAINE 5% TOPICAL PATCH TP SCH (10:33)
--- NOTE | 2017-03-23 12:55 | PN ---
Progress Note, Physician History of Present Illness: Awaiting RLE angiogram. - Current Medication List Current Medications: Active Medications Acetaminophen (Tylenol -) 650 mg PO Q6H PRN PRN Reason: PAIN Last Admin: 03/21/17 23:04 Dose: 650 mg Amlodipine Besylate (Norvasc -) 10 mg PO DAILY [facility] Last Admin: 03/23/17 09:09 Dose: 10 mg Aspirin (Ecotrin -) 81 mg PO DAILY [facility] Last Admin: 03/22/17 10:53 Dose: 81 mg Atorvastatin Calcium (Lipitor -) 80 mg PO HS [facility] Last Admin: 03/22/17 22:47 Dose: 80 mg Carvedilol (Coreg -) 12.5 mg PO BID [facility] Last Admin: 03/23/17 09:09 Dose: 12.5 mg Gabapentin (Neurontin -) 300 mg PO TID [facility] Heparin Sodium (Porcine) (Heparin -) 5,000 unit SQ TID [facility] Last Admin: 03/23/17 06:30 Dose: 5,000 unit Ertapenem 1 gm/ Sodium (Chloride) 100 mls @ 100 mls/hr IVPB DAILY [facility] PRN Reason: Protocol Last Admin: 03/23/17 10:28 Dose: 100 mls/hr Sodium Chloride (1/2 Normal Saline) 1,000 mls @ 100 mls/hr IV ASDIR [facility] Last Admin: 03/23/17 08:56 Dose: 100 mls/hr Insulin Aspart (Novolog Vial Sliding Scale -) 1 vial SQ ACHS [facility] PRN Reason: Protocol Last Admin: 03/23/17 06:28 Dose: Not Given Insulin Detemir (Levemir Vial) 10 units SQ HS [facility] Last Admin: 03/22/17 22:50 Dose: 10 unit Lidocaine (Lidoderm Patch -) 2 patch TP DAILY [facility] Last Admin: 03/23/17 10:33 Dose: Not Given Lisinopril (Prinivil) 20 mg PO DAILY [facility] Last Admin: 03/22/17 10:50 Dose: 20 mg Miscellaneous (Lidoderm Patch Removal) 1 each MC DAILY@2200 [facility] Last Admin: 03/22/17 22:47 Dose: 1 each Ondansetron HCl (Zofran Injection) 4 mg IVPUSH Q6H PRN PRN Reason: NAUSEA AND/OR VOMITING Last Admin: 03/23/17 08:57 Dose: 4 mg Tramadol HCl (Ultram -) 50 mg PO Q6H PRN PRN Reason: PAIN LEVEL 6-10 Last Admin: 03/22/17 22:46 Dose: 50 mg - Objective Vital Signs: Vital Signs Temperature 98.5 F 03/23/17 06:00 Pulse Rate 83 03/23/17 06:00 Respiratory Rate 20 03/23/17 06:00 Blood Pressure 130/66 03/23/17 06:00 O2 Sat by Pulse Oximetry (%) 95 03/22/17 21:00 Constitutional: Yes: No Distress, Calm Neck: Yes: Supple Cardiovascular: Yes: Regular Rate and Rhythm Respiratory: Yes: Regular, CTA Bilaterally Gastrointestinal: Yes: Normal Bowel Sounds, Soft Edema: No Integumentary: Yes: Other (Heel ulcers R>L) Labs: CBC, BMP 03/23/17 06:00 03/23/17 06:00 INR, PTT INR 1.02 (0.82-1.09) 03/23/17 06:00 Problem List - Problems (1) Hyperlipidemia associated with type 2 diabetes mellitus Code(s): E11.69 - TYPE 2 DIABETES MELLITUS WITH OTHER SPECIFIED COMPLICATION; E78.5 - HYPERLIPIDEMIA, UNSPECIFIED (2) Type 2 diabetes mellitus Code(s): E11.9 - TYPE 2 DIABETES MELLITUS WITHOUT COMPLICATIONS Qualifiers: Diabetes mellitus complication status: with circulatory complication Diabetes mellitus complication detail: with peripheral angiopathy with gangrene Diabetes mellitus long-term insulin use: without long-term use Qualified Code(s): E11.52 - Type 2 diabetes mellitus with diabetic peripheral angiopathy with gangrene (3) Hypertensive urgency Code(s): I16.0 - HYPERTENSIVE URGENCY (4) Femoral-popliteal artery atherosclerosis Code(s): I70.209 - UNSP ATHSCL [place] ARTERIES OF EXTREMITIES, UNSP EXTREMITY (5) Poor compliance Code(s): Z91.19 - PATIENT'S NONCOMPLIANCE W OTH MEDICAL TREATMENT AND REGIMEN (6) PVD (peripheral vascular disease) Code(s): I73.9 - PERIPHERAL VASCULAR DISEASE, UNSPECIFIED (7) Foot ulcer Code(s): L97.509 - NON-PRESSURE CHRONIC ULCER OTH PRT UNSP FOOT W UNSP SEVERITY Qualifiers: Laterality: unspecified laterality Non-pressure ulcer stage: unspecified non-pressure ulcer stage Qualified Code(s): L97.509 - Non-pressure chronic ulcer of other part of unspecified foot with unspecified severity Assessment/Plan Echocardiography revealed MAC, AV sclerosis, normal LV and RV size and function , trace MR 1. Symptomatic PAD with non-healing bilateral heal ulcers for RLE angiography and possible intervention 2. Bilateral lower extremity parasthesia, possible diabetic neuropathy 3. 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 Diastolic LV dysfunction with class 0-I NYHA classification LV failure, compensated/euvolemic 5. Heart murmur related to aortic valve sclerosis 6. HTN, BP with improved control 7. DM 8. Hypercholesterolemia 9. Anemia 10. Poor compliance with medical F/U PLAN: 1. Continue ASA 81 qd 2. Continue Norvasc 10 qd 3. Continue Prinivil 20 qd 4. Continue Coreg 12.5 bid and titrate dosage as tolerated 5. Continue Lipitor 80 qhs 6. Aggressive diabetes mellitus management, empiric abx course 7. There are no absolute contraindication in proceeding with planned vascular intervention considering that there is no evidence clinical evidence of acute coronary syndrome and/or congestive heart failure and/or malignant ventricular arrhythmia
--- NOTE | 2017-03-23 13:33 | PN ---
Physical Exam: SUBJECTIVE: Patient seen and examined. She has mild nausea, but improved, no further vomiting. Ultram has helped her pain Events: - Vomiting x1 this AM, bile OBJECTIVE: Vital Signs Period Temp Pulse Resp BP Sys/Rahman Pulse Ox Last 24 Hr 98.1 F-98.5 F 83-98 20-20 130-160/66-85 95 PE Neuro: alert, awake, cn 2-12intact Pulm: CTAB CV: s1 s2 rrr no mrg Abd: s nt nd +bs Ext: L heel eschar, le tenderness to b/l feet, skin changes Laboratory Results - last 24 hr 03/22/17 03/22/17 03/23/17 17:21 22:49 06:00 WBC RBC Hgb Hct MCV MCH MCHC RDW Plt Count MPV Neutrophils % Lymphocytes % Monocytes % Eosinophils % Basophils % PT with INR 11.50 INR 1.02 Sodium Potassium Chloride Carbon Dioxide Anion Gap BUN Creatinine POC Glucometer 198 237 Random Glucose Calcium 03/23/17 03/23/17 03/23/17 06:00 06:00 06:00 WBC 8.1 RBC 3.62 Hgb 10.2 L Hct 31.1 L MCV 85.9 MCH 28.1 MCHC 32.8 RDW 13.0 Plt Count 330 MPV 8.1 Neutrophils % 65.0 Lymphocytes % 21.4 Monocytes % 11.1 H Eosinophils % 1.4 Basophils % 1.1 PT with INR INR Sodium 138 Potassium 4.1 Chloride 101 Carbon Dioxide 31 Anion Gap 6 L BUN 9 Creatinine 0.5 L POC Glucometer 127 Random Glucose 123 H Calcium 8.0 L Active Medications Generic Name Dose Route Start Last Admin Trade Name [place] PRN Reason Stop Dose Admin Acetaminophen 650 mg 03/20/17 00:35 03/21/17 23:04 Tylenol - PO 650 mg Q6H PRN Administration PAIN Amlodipine Besylate 10 mg 03/21/17 17:00 03/23/17 09:09 Norvasc - PO 10 mg DAILY JESSICA Administration Aspirin 81 mg 03/19/17 17:45 03/22/17 10:53 Ecotrin - PO 81 mg DAILY JESSICA Administration Atorvastatin Calcium 80 mg 03/19/17 22:00 03/22/17 22:47 Lipitor - PO 80 mg HS JESSICA Administration Carvedilol 12.5 mg 03/22/17 10:00 03/23/17 09:09 Coreg - PO 12.5 mg BID JESSICA Administration Gabapentin 300 mg 03/23/17 10:00 Neurontin - PO TID JESSICA Heparin Sodium (Porcine) 5,000 unit 03/19/17 22:00 03/23/17 06:30 Heparin - SQ 5,000 unit TID JESSICA Administration Ertapenem 1 gm/ Sodium 100 mls @ 100 mls/hr 03/19/17 17:00 03/23/17 10:28 Chloride IVPB 100 mls/hr DAILY JESSICA Administration Protocol Sodium Chloride 1,000 mls @ 100 mls/hr 03/23/17 08:45 03/23/17 08:56 1/2 Normal Saline IV 100 mls/hr ASDIR JESSICA Administration Insulin Aspart 1 vial 03/21/17 16:35 03/23/17 06:28 Novolog Vial Sliding Scale - SQ Not Given ACHS [facility] Protocol Insulin Detemir 10 units 03/20/17 15:29 03/22/17 22:50 Levemir Vial SQ 10 unit HS JESSICA Administration Lidocaine 2 patch 03/22/17 11:00 03/23/17 10:33 Lidoderm Patch - TP Not Given DAILY JESSICA Lisinopril 20 mg 03/21/17 10:17 03/22/17 10:50 Prinivil PO 20 mg DAILY [facility] Administration Miscellaneous 1 each 03/22/17 22:00 03/22/17 22:47 Lidoderm Patch Removal MC 1 each DAILY@2200 [facility] Administration Ondansetron HCl 4 mg 03/19/17 16:08 03/23/17 08:57 Zofran Injection IVPUSH 4 mg Q6H PRN Administration NAUSEA AND/OR VOMITING Tramadol HCl 50 mg 03/22/17 10:50 03/22/17 22:46 Ultram - PO 50 mg Q6H PRN Administration PAIN LEVEL 6-10 Assessment: 51 year old female with pmhx of HTN, uncontrolled DM diabetes (on no meds) and depression worsening lower extremity pain and eval of b/l heels. Plan: 1. Sepsis secondary to diabetic wounds - Sepsis resolving - Continue Ertapenem per ID 2. PVD with severe stenosis - For angioplasty/angiogram for right distal sfa, popliteal disease today - Per cardiology no absolute contraindication in proceeding with vascular intervention - ASA daily - Lipitor 80mg HD - Zetia 10mg daily - Consider PSCK9 if LDL cannot be reached, defer to cards 3. Diabetic neuropathy - Started Gabapentin TID - Ultram PRN 4. Diastolic LV dysfunction - Stable - Coreg 12.5mg BID - ECHO revealed MAC, AV sclerosis, normal LV and RV size and function, trace MR 5. HTN - Norvasc 10mg daily - Lisinopril 20mg daily - Increased Coreg 12.5mg BID 6. DM II, uncontrolled - Sugars stable - Levemir 10units hs - ISS, BGM ACHS 7. DVT - Heparin sq q8 Visit type - Emergency Visit Emergency Visit: Yes ED Registration Date: 03/19/17 Care time: The patient presented to the Emergency Department on the above date and was hospitalized for further evaluation of their emergent condition. - New Patient This patient is new to me today: No - Critical Care Critical Care patient: No
[2017-03-23] MEDS: ASPIRIN COATED 81 MG TABLET.EC PO SCH (14:33)
[2017-03-23] MEDS: GABAPENTIN 300 MG CAPSULE (FP) PO SCH ×2 (14:34→21:29)
[2017-03-23] MEDS ORDERED: MIDAZOLAM HCL 2 MG/2 ML SINGLE DOSE VIAL ONE (16:08)
[2017-03-23] MEDS ORDERED: PROPOFOL 20 ML ONE ×5 (16:08→18:11)
[2017-03-23] MEDS ORDERED: CLINDAMYCIN 600 MG PREMIX BAG IVPB ONE (16:22)
[2017-03-23] MEDS ORDERED: ceFAZolin SODIUM 1 GM VIAL ONE (16:36)
[2017-03-23] MEDS ORDERED: CLINDAMYCIN PHOSPHATE 600 MG/4 ML VIAL ONE (16:38)
[2017-03-23] MEDS ORDERED: HEPARIN NA (PORCINE) 5,000 UNITS/ML 1ML VIAL ONE ×2 (17:36→17:38)
[2017-03-23] MEDS ORDERED: ONDANSETRON 4 MG/2 ML VIAL IVPUSH PRN ×3 (18:28→19:09)
[2017-03-23] MEDS ORDERED: PROMETHAZINE HCL 25 MG/1 ML VIAL IVPUSH PRN (18:28)
[2017-03-23] MEDS ORDERED: LORazepam 2 MG/ML SDV VIAL IVPUSH ONE ×2 (18:45→19:30)
--- NOTE | 2017-03-23 18:45 | OP ---
Operative Note - Note: Operative Date: 03/23/17 Pre-Operative Diagnosis: Right heel ulcer Operation: aortogram, rle angiogram, SFA dcb angioplasty with stent placement, Popliteal artery dcb angioplasty Findings: distal sfa occlusion -- 8cm popliteal artery stenosis - 80% one vessel runoff -- AT Post-Operative Diagnosis: Same as Pre-op Surgeon: Chato Byrnes Anesthesia: Fractional Estimated Blood Loss (mls): 50 Operative Report Dictated: Yes
[2017-03-23] MEDS ORDERED: PROMETHAZINE HCL 25 MG/1 ML VIAL IVPB PRN (19:09)
[2017-03-23] MEDS: SODIUM CHLORIDE 1,000 ML IV SCH (20:00)
[2017-03-23] MEDS ORDERED: INSULIN (NOVOLOG) ASPART 100 UNITS/ML 10ML VIAL ONE (21:06)
[2017-03-23] MEDS: CLOPIDOGREL BISULFATE 75 MG TABLET (FP) PO SCH (21:29)
[2017-03-23] MEDS: ATORVASTATIN CA 80 MG TABLET (FP) PO SCH (21:29)
[2017-03-23] MEDS: INSULIN DETEMIR 100 UNITS/ML MDV SQ SCH (21:36)
[2017-03-23] MEDS: LIDOCAINE PATCH REMOVAL MC SCH (21:36)
[2017-03-23] MEDS ORDERED: LIDOCAINE PATCH REMOVAL MC SCH (22:00)
[2017-03-24] MEDS: INSULIN SLIDING SCALE (NOVOLOG) 1 VIAL SQ SCH ×4 (06:02→21:23)
[2017-03-24] MEDS: GABAPENTIN 300 MG CAPSULE (FP) PO SCH ×3 (06:15→21:21)
[2017-03-24] MEDS: SODIUM CHLORIDE 1,000 ML IV SCH ×2 (06:16→21:24)
[2017-03-24] MEDS: HEPARIN NA (PORCINE) 5,000 UNITS/ML 1ML VIAL SQ SCH ×3 (06:19→21:21)
[2017-03-24] MEDS: traMADol HCL 50 MG TABLET PO PRN ×2 (06:38→21:20)
--- NOTE | 2017-03-24 08:27 | PN ---
Progress Note (short form) - Note Progress Note: POD #1 Alert. Supine in bed. States her right leg feels much better s/p procedure. Still has numbness/tingling which was present prior too surgery (h/o diabetes). AVSS. Afebrile. Gen: nad Left groin: stab incision c/d/i. no hematoma Right LE: warm. Calf soft/nt. Palpable DP. Moving toes without pain Problem List - Problems (1) Femoral-popliteal artery atherosclerosis Assessment/Plan: s/p aortogram, rle angiogram, SFA dcb angioplasty with stent placement, Popliteal artery dcb angioplasty Tight glycemic control OOB and ambulate Pain management prn Cont medical management No further vascular surgery intervention Code(s): I70.209 - UNSP ATHSCL [place] ARTERIES OF EXTREMITIES, UNSP EXTREMITY
[2017-03-24 08:58] LABS: BASO % 0.7 % (0-2.0); EOS % 0.2 % (0-4.5); HEMATOCRIT 33.8 % (32.4-45.2); LYMPH % 8.7 % (8-40); MCH 28.2 pg (25.7-33.7); MCHC 32.7 g/dl (32.0-36.0); MEAN CELL VOLUME 86.2 fl (80-96); MEAN PLT VOLUME 8.2 fl (7.5-11.1); MONO % 7.5 % (3.8-10.2); NEUT % 82.9 % (42.8-82.8); PLATELET COUNT 350 K/MM3 (134-434); RBC 3.92 M/mm3 (3.60-5.2); RDW 13.7 % (11.6-15.6); WHITE BLOOD COUNT 14.6 K/mm3 (4.0-10.0)
[2017-03-24 09:31] LABS: ALBUMIN 1.6 g/dl (3.4-5.0); ANION GAP 9 (8-16); BLOOD UREA NITROGEN 9 mg/dL (7-18); CALCIUM 7.8 mg/dL (8.5-10.1); CHLORIDE 102 mmol/L (98-107); CO2 28 mmol/L (21-32); CREATININE 0.5 mg/dL (0.55-1.02); GLUCOSE,RANDOM 160 mg/dL (74-106); POTASSIUM 4.3 mmol/L (3.5-5.1); SGOT/AST 34 U/L (15-37); SODIUM 139 mmol/L (136-145)
[2017-03-24 09:33] LABS: ALK PHOS 83 U/L (45-117); BILIRUBIN,TOTAL 0.7 mg/dL (0.2-1.0); SGPT/ALT 33 U/L (12-78); TOT PROT 5.5 g/dl (6.4-8.2)
[2017-03-24] MEDS: LIDOCAINE 5% TOPICAL PATCH TP SCH ×2 (10:00→10:51)
--- NOTE | 2017-03-24 10:48 | PN ---
Progress Note, Physician History of Present Illness: Pt POD#1 s/p aortogram, rle angiogram, SFA dcb angioplasty with stent placement , popliteal artery dcb angioplasty. - Current Medication List Current Medications: Active Medications Acetaminophen (Tylenol -) 650 mg PO Q6H PRN PRN Reason: PAIN Amlodipine Besylate (Norvasc -) 10 mg PO DAILY [facility] Aspirin (Ecotrin -) 81 mg PO DAILY [facility] Atorvastatin Calcium (Lipitor -) 80 mg PO HS [facility] Last Admin: 03/23/17 21:29 Dose: 80 mg Carvedilol (Coreg -) 12.5 mg PO BID [facility] Last Admin: 03/23/17 21:30 Dose: 12.5 mg Clopidogrel Bisulfate (Plavix -) 75 mg PO DAILY [facility] Last Admin: 03/23/17 21:29 Dose: 75 mg Fentanyl (Sublimaze Injection -) 50 mcg IVPUSH [id number] PRN PRN Reason: PAIN-PACU ORDER X 4 DOSES ONLY Gabapentin (Neurontin -) 300 mg PO TID [facility] Last Admin: 03/24/17 06:15 Dose: 300 mg Heparin Sodium (Porcine) (Heparin -) 5,000 unit SQ TID [facility] Last Admin: 03/24/17 06:19 Dose: 5,000 unit Ertapenem 1 gm/ Sodium (Chloride) 100 mls @ 100 mls/hr IVPB DAILY [facility] PRN Reason: Protocol Sodium Chloride (Normal Saline -) 1,000 mls @ 100 mls/hr IV ASDIR [facility] Last Admin: 03/24/17 06:16 Dose: 100 mls/hr Insulin Aspart (Novolog Vial Sliding Scale -) 1 vial SQ ACHS [facility] PRN Reason: Protocol Last Admin: 03/24/17 06:02 Dose: Not Given Insulin Detemir (Levemir Vial) 10 units SQ HS [facility] Last Admin: 03/23/17 21:36 Dose: Not Given Lidocaine (Lidoderm Patch -) 2 patch TP DAILY [facility] Lisinopril (Prinivil) 20 mg PO DAILY [facility] Miscellaneous (Lidoderm Patch Removal) 1 each MC DAILY@2200 [facility] Last Admin: 03/23/17 21:36 Dose: Not Given Tramadol HCl (Ultram -) 50 mg PO Q6H PRN PRN Reason: PAIN LEVEL 6-10 Last Admin: 03/24/17 06:38 Dose: 50 mg - Objective Vital Signs: Vital Signs Temperature 99.1 F 03/24/17 08:48 Pulse Rate 99 H 03/24/17 08:48 Respiratory Rate 18 03/24/17 08:48 Blood Pressure 137/70 03/24/17 08:48 O2 Sat by Pulse Oximetry (%) 96 03/23/17 22:00 Constitutional: Yes: No Distress, Calm Neck: Yes: Supple Cardiovascular: Yes: Regular Rate and Rhythm Respiratory: Yes: Regular, CTA Bilaterally Gastrointestinal: Yes: Normal Bowel Sounds, Soft Edema: No Labs: CBC, BMP 03/24/17 08:40 03/24/17 08:40 INR, PTT INR 1.02 (0.82-1.09) 03/23/17 06:00 Problem List - Problems (1) Hyperlipidemia associated with type 2 diabetes mellitus Code(s): E11.69 - TYPE 2 DIABETES MELLITUS WITH OTHER SPECIFIED COMPLICATION; E78.5 - HYPERLIPIDEMIA, UNSPECIFIED (2) Type 2 diabetes mellitus Code(s): E11.9 - TYPE 2 DIABETES MELLITUS WITHOUT COMPLICATIONS Qualifiers: Diabetes mellitus complication status: with circulatory complication Diabetes mellitus complication detail: with peripheral angiopathy with gangrene Diabetes mellitus terminal worker insulin use: without terminal worker use Qualified Code(s): E11.52 - Type 2 diabetes mellitus with diabetic peripheral angiopathy with gangrene (3) Hypertensive urgency Code(s): I16.0 - HYPERTENSIVE URGENCY (4) Femoral-popliteal artery atherosclerosis Code(s): I70.209 - UNSP ATHSCL [place] ARTERIES OF EXTREMITIES, UNSP EXTREMITY (5) Poor compliance Code(s): Z91.19 - PATIENT'S NONCOMPLIANCE W OTH MEDICAL TREATMENT AND REGIMEN (6) PVD (peripheral vascular disease) Code(s): I73.9 - PERIPHERAL VASCULAR DISEASE, UNSPECIFIED (7) Foot ulcer Code(s): L97.509 - NON-PRESSURE CHRONIC ULCER OTH PRT UNSP FOOT W UNSP SEVERITY Qualifiers: Laterality: unspecified laterality Non-pressure ulcer stage: unspecified non-pressure ulcer stage Qualified Code(s): L97.509 - Non-pressure chronic ulcer of other part of unspecified foot with unspecified severity Assessment/Plan Echocardiography revealed MAC, AV sclerosis, normal LV and RV size and function , trace MR 1. Symptomatic PAD with non-healing bilateral heal ulcers s/p aortogram, rle angiogram, SFA dcb angioplasty with stent placement, Popliteal artery dcb angioplasty 2. Bilateral lower extremity parasthesia, possible diabetic neuropathy 3. 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 Diastolic LV dysfunction with class 0-I NYHA classification LV failure, compensated/euvolemic 5. Heart murmur related to aortic valve sclerosis 6. HTN, BP with improved control 7. DM 8. Hypercholesterolemia 9. Anemia 10. Poor compliance with medical F/U PLAN: 1. Continue ASA 81 qd 2. Continue Norvasc 10 qd 3. Continue Prinivil 20 qd 4. Continue Coreg 12.5 bid and titrate dosage as tolerated 5. Continue Lipitor 80 qhs 6. Aggressive diabetes mellitus management, complete empiric abx course
[2017-03-24] MEDS: ERTAPENEM SODIUM 1 GM in SODIUM CHLORIDE 100 ML IVPB SCH (10:51)
[2017-03-24] MEDS: CLOPIDOGREL BISULFATE 75 MG TABLET (FP) PO SCH (10:51)
[2017-03-24] MEDS: LISINOPRIL 20 MG TABLET (FP) PO SCH (10:52)
[2017-03-24] MEDS: CARVEDILOL 12.5 MG TABLET (FP) PO SCH ×2 (10:52→21:21)
[2017-03-24] MEDS: amLODIPine BESYLATE 10 MG TABLET (FP) PO SCH (10:52)
[2017-03-24] MEDS: ASPIRIN COATED 81 MG TABLET.EC PO SCH (10:52)
--- NOTE | 2017-03-24 11:17 | PN ---
Progress Note, Physician History of Present Illness: patient post op stable no new issues says she feels leg numb otherwise no issues - Current Medication List Current Medications: Active Medications Acetaminophen (Tylenol -) 650 mg PO Q6H PRN PRN Reason: PAIN Amlodipine Besylate (Norvasc -) 10 mg PO DAILY [facility] Last Admin: 03/24/17 10:52 Dose: 10 mg Aspirin (Ecotrin -) 81 mg PO DAILY [facility] Last Admin: 03/24/17 10:52 Dose: 81 mg Atorvastatin Calcium (Lipitor -) 80 mg PO HS [facility] Last Admin: 03/23/17 21:29 Dose: 80 mg Carvedilol (Coreg -) 12.5 mg PO BID [facility] Last Admin: 03/24/17 10:52 Dose: 12.5 mg Clopidogrel Bisulfate (Plavix -) 75 mg PO DAILY [facility] Last Admin: 03/24/17 10:51 Dose: 75 mg Fentanyl (Sublimaze Injection -) 50 mcg IVPUSH [id number] PRN PRN Reason: PAIN-PACU ORDER X 4 DOSES ONLY Gabapentin (Neurontin -) 300 mg PO TID [facility] Last Admin: 03/24/17 06:15 Dose: 300 mg Heparin Sodium (Porcine) (Heparin -) 5,000 unit SQ TID [facility] Last Admin: 03/24/17 06:19 Dose: 5,000 unit Ertapenem 1 gm/ Sodium (Chloride) 100 mls @ 100 mls/hr IVPB DAILY [facility] PRN Reason: Protocol Last Admin: 03/24/17 10:51 Dose: 100 mls/hr Sodium Chloride (Normal Saline -) 1,000 mls @ 100 mls/hr IV ASDIR [facility] Last Admin: 03/24/17 06:16 Dose: 100 mls/hr Insulin Aspart (Novolog Vial Sliding Scale -) 1 vial SQ ACHS [facility] PRN Reason: Protocol Last Admin: 03/24/17 06:02 Dose: Not Given Insulin Detemir (Levemir Vial) 10 units SQ HS [facility] Last Admin: 03/23/17 21:36 Dose: Not Given Lidocaine (Lidoderm Patch -) 2 patch TP DAILY [facility] Last Admin: 03/24/17 10:51 Dose: 2 patch Lisinopril (Prinivil) 20 mg PO DAILY [facility] Last Admin: 03/24/17 10:52 Dose: 20 mg Miscellaneous (Lidoderm Patch Removal) 1 each DAILY@2200 [facility] Last Admin: 03/23/17 21:36 Dose: Not Given Tramadol HCl (Ultram -) 50 mg PO Q6H PRN PRN Reason: PAIN LEVEL 6-10 Last Admin: 03/24/17 06:38 Dose: 50 mg - Objective Vital Signs: Vital Signs Temperature 99.1 F 03/24/17 08:48 Pulse Rate 81 03/24/17 10:58 Respiratory Rate 18 03/24/17 08:48 Blood Pressure 137/70 03/24/17 08:48 O2 Sat by Pulse Oximetry (%) 98 03/24/17 10:58 Constitutional: Yes: No Distress, Calm Cardiovascular: Yes: Regular Rate and Rhythm Respiratory: Yes: Regular, CTA Bilaterally Gastrointestinal: Yes: Normal Bowel Sounds, Soft Musculoskeletal: Yes: WNL Extremities: Yes: Other (heel necrotic skin) Integumentary: Yes: Other Wound/Incision: Yes: Clean/Dry, Open to air Neurological: Yes: Alert, Oriented Psychiatric: Yes: Alert, Oriented Labs: CBC, BMP 03/24/17 08:40 03/24/17 08:40 INR, PTT INR 1.02 (0.82-1.09) 03/23/17 06:00 Assessment/Plan dm htn pvd sepsis plan continue abx will stop abx tomorrow rest as per primary team
[2017-03-24] MEDS ORDERED: INSULIN (NOVOLOG) ASPART 100 UNITS/ML 10ML VIAL ONE ×3 (11:47→20:52)
--- NOTE | 2017-03-24 13:53 | PN ---
Physical Exam: SUBJECTIVE: Patient seen and examined at the bedside. She denies pain, shortness of breath. OBJECTIVE: Vital Signs Period Temp Pulse Resp BP Sys/Rahman Pulse Ox Last 24 Hr 98 F-99.6 F 81-99 16-21 125-160/66-84 96-100 GENERAL: Awake, alert, and fully oriented, in no acute distress. HEAD: Normal with no signs of trauma. EYES: Pupils equal, round and reactive to light, extraocular movements intact, sclera anicteric, conjunctiva clear. No lid lag. EARS, NOSE, THROAT: Ears normal, nares patent, oropharynx clear without exudates. Moist mucous membranes. NECK: Normal range of motion, supple without lymphadenopathy, JVD, or masses. LUNGS: Breath sounds equal, clear to auscultation bilaterally. No wheezes, and no crackles. No accessory muscle use. EXT: Right lower ext: No edema, + erythema and dark discoloration of the distal third of the lower extremity. Round heal wound, circular 3cm x 3cm hemorrhagic bullae to the inner aspect of the right heal. Discolored right ankle , may be bleeding under skin. Unable to palpate pulses. Left lower ext. No deformity 2.5 x 2cm circular callus with cutanous medial aspect of left heal. PSYCHIATRIC: Cooperative. Flat affect Laboratory Results - last 24 hr 03/23/17 03/24/17 03/24/17 21:30 05:36 08:40 WBC 14.6 H D RBC 3.92 Hgb 11.0 Hct 33.8 MCV 86.2 MCH 28.2 MCHC 32.7 RDW 13.7 Plt Count 350 MPV 8.2 Neutrophils % 82.9 H D Lymphocytes % 8.7 D Monocytes % 7.5 Eosinophils % 0.2 D Basophils % 0.7 Sodium Potassium Chloride Carbon Dioxide Anion Gap BUN Creatinine Creat Clearance w eGFR POC Glucometer 122 146 Random Glucose Calcium Total Bilirubin AST ALT Alkaline Phosphatase Total Protein Albumin 03/24/17 08:40 WBC RBC Hgb Hct MCV MCH MCHC RDW Plt Count MPV Neutrophils % Lymphocytes % Monocytes % Eosinophils % Basophils % Sodium 139 Potassium 4.3 Chloride 102 Carbon Dioxide 28 Anion Gap 9 BUN 9 Creatinine 0.5 L Creat Clearance w eGFR > 60 POC Glucometer Random Glucose 160 H Calcium 7.8 L Total Bilirubin 0.7 AST 34 ALT 33 Alkaline Phosphatase 83 Total Protein 5.5 L Albumin 1.6 L Active Medications Generic Name Dose Route Start Last Admin Trade Name Freq PRN Reason Stop Dose Admin Acetaminophen 650 mg 03/23/17 19:09 Tylenol - PO Q6H PRN PAIN Amlodipine Besylate 10 mg 03/24/17 10:00 03/24/17 10:52 Norvasc - PO 10 mg DAILY [facility] Administration Aspirin 81 mg 03/24/17 10:00 03/24/17 10:52 Ecotrin - PO 81 mg DAILY [facility] Administration Atorvastatin Calcium 80 mg 03/23/17 22:00 03/23/17 21:29 Lipitor - PO 80 mg HS [facility] Administration Carvedilol 12.5 mg 03/23/17 22:00 03/24/17 10:52 Coreg - PO 12.5 mg BID [facility] Administration Clopidogrel Bisulfate 75 mg 03/23/17 19:00 03/24/17 10:51 Plavix - PO 75 mg DAILY [facility] Administration Fentanyl 50 mcg 03/23/17 19:09 Sublimaze Injection - IVPUSH [id number] PRN PAIN-PACU ORDER X 4 DOSES ONLY Gabapentin 300 mg 03/23/17 22:00 03/24/17 06:15 Neurontin - PO 300 mg TID [facility] Administration Heparin Sodium (Porcine) 5,000 unit 03/23/17 22:00 03/24/17 06:19 Heparin - SQ 5,000 unit TID [facility] Administration Ertapenem 1 gm/ Sodium 100 mls @ 100 mls/hr 03/24/17 10:00 03/24/17 10:51 Chloride IVPB 100 mls/hr DAILY REPLACED BY [facility] Administration Protocol Sodium Chloride 1,000 mls @ 100 mls/hr 03/23/17 19:09 03/24/17 06:16 Normal Saline - IV 100 mls/hr ASDIR REPLACED BY [facility] Administration Insulin Aspart 1 vial 03/23/17 22:00 03/24/17 11:49 Novolog Vial Sliding Scale - SQ 2 units ACHS REPLACED BY [facility] Administration Protocol Insulin Detemir 10 units 03/23/17 22:00 03/23/17 21:36 Levemir Vial SQ Not Given HS [facility] Lidocaine 2 patch 03/24/17 10:00 03/24/17 10:00 Lidoderm Patch - TP Not Given DAILY [facility] Lisinopril 20 mg 03/24/17 10:00 03/24/17 10:52 Prinivil PO 20 mg DAILY [facility] Administration Miscellaneous 1 each 03/23/17 22:00 03/23/17 21:36 Lidoderm Patch Removal MC Not Given DAILY@2200 REPLACED BY [facility] Tramadol HCl 50 mg 03/23/17 19:09 03/24/17 06:38 Ultram - PO 50 mg Q6H PRN Administration PAIN LEVEL 6-10 ASSESSMENT/PLAN: Patient is a 51 year old female with a significant past medical history of hypertension, diabetes (on no home medication) and depression. She presents to the Emergency Room with complaints of worsening lower extremity pain and evaluation of her wounds on her bilateral heels. Patient does not have a primary care physician and is on no medications for her diabetes and hypertension. She states that over the past few weeks she has been experiencing worsening pain associated to the wounds on both feet, but the right was worse than the left. She reports pain with ambulation and worsening drainage of her wounds. She states that she also notes a numb sensation in her right lower extremity from her knee to her foot. She noted that both wounds on her heels bilaterally opened up and began draining clear fluid. Imaging: CTA with aorta runoff Impression: 1. peripheral vascular disease with severe stenosis and flow gap in the distal right SFA, severe stenosis in the right popliteal artery and likely multifocoal hemodynamically significant lunimal narrowing in the anterior tibial, postero tibial and peoneal arteries, secondary to calcified plaque. 2. Peripheral vascular disease with severe stenosis in the distal left superficial femoral artery. Severe stenosis in the distal left popliteal artery with flow gap, likely multifocal hemodynamically significant luminal narrowing in the anterior tibial, posterior tibial and peroneal arteries secondary to calcified plaque. Severe short segment luminal narrowing in the left dorsalis pedis. 4. enlarged lobulated uterus with multiple large leiomyomas ID: Sepsis secondary to diabetic wounds, improving CTA as above, s/p aortogram, rle angiogram, SFA dcb angioplasty with stent placement, Popliteal artery dcb angioplasty On Ertapenem as per ID WBC 14.4, no further tctachycardia Blood and urine cultures negative MRI bilateral LE negative for osteomylitis ID following Vascular: PVD with severe stenosis and flow gap in the distal right SFA Severe stenosis in the right popliteal artery PVD with severe stenosis in the distal left superficial femoral artery ASA 81mg daily, Lipitor 80mg @ hs, Plavix 75mg daily Vascular following Cardiology: Hypertension Hypertensive Urgency, BP now controlled Risk factors: uncontrolled htn, hyperlipidemia, dm, pvd On Lisinopril 20mg daily, coreq 12.5mg, BID Monitor BP Diastolic LV dysfunction Coreg 12.5mg BID ECHO revealed MAC, AV sclerosis, normal LV and RV size and function, trace MR Endocrine: Diabetes Mellitus,controlled BGMs, Novolog sliding scale Diabetic diet Levemir 10 units @ hs F.E.N. Fluids: tolerating PO Electrolytes: monitor Nutrition: diabetic diet Prophylaxis DVT: Heparin TID GI: Protonix Disposition: full code. On discharge will need PCP assignment as pt states she does not have PCP. Visit type - Emergency Visit Emergency Visit: Yes ED Registration Date: 03/19/17 Care time: The patient presented to the Emergency Department on the above date and was hospitalized for further evaluation of their emergent condition. - New Patient This patient is new to me today: No - Critical Care Critical Care patient: No - Discharge Referral Referred to [facility] Med P.C.: Yes Physician Referral: Lashawn Saini MD ([facility])
[2017-03-24] MEDS: ONDANSETRON 4 MG/2 ML VIAL IVPUSH PRN (14:54)
[2017-03-24] MEDS: ATORVASTATIN CA 80 MG TABLET (FP) PO SCH (21:21)
[2017-03-24] MEDS: INSULIN DETEMIR 100 UNITS/ML MDV SQ SCH (21:22)
[2017-03-24] MEDS: LIDOCAINE PATCH REMOVAL MC SCH (21:28)
[2017-03-25] MEDS: HEPARIN NA (PORCINE) 5,000 UNITS/ML 1ML VIAL SQ SCH ×3 (05:58→21:02)
[2017-03-25] MEDS: GABAPENTIN 300 MG CAPSULE (FP) PO SCH ×3 (05:59→21:02)
[2017-03-25] MEDS: INSULIN SLIDING SCALE (NOVOLOG) 1 VIAL SQ SCH ×3 (06:05→17:52)
[2017-03-25 07:57] LABS: CHLORIDE 101 mmol/L (98-107); POTASSIUM 4.6 mmol/L (3.5-5.1); SODIUM 136 mmol/L (136-145)
[2017-03-25 08:04] LABS: ALBUMIN 1.5 g/dl (3.4-5.0); ALK PHOS 75 U/L (45-117); ANION GAP 7 (8-16); BILIRUBIN,TOTAL 0.4 mg/dL (0.2-1.0); BLOOD UREA NITROGEN 18 mg/dL (7-18); CALCIUM 7.5 mg/dL (8.5-10.1); CO2 28 mmol/L (21-32); GLUCOSE,RANDOM 170 mg/dL (74-106); SGOT/AST 21 U/L (15-37); SGPT/ALT 27 U/L (12-78); TOT PROT 5.2 g/dl (6.4-8.2)
[2017-03-25 08:16] LABS: BASO % 0.8 % (0-2.0); EOS % 1.3 % (0-4.5); HEMATOCRIT 29.9 % (32.4-45.2); HEMOGLOBIN 9.7 GM/dL (10.7-15.3); MCH 28.3 pg (25.7-33.7); MCHC 32.4 g/dl (32.0-36.0); MEAN CELL VOLUME 87.4 fl (80-96); MEAN PLT VOLUME 8.8 fl (7.5-11.1); MONO % 11.2 % (3.8-10.2); NEUT % 73.7 % (42.8-82.8); PLATELET COUNT 337 K/MM3 (134-434); RBC 3.42 M/mm3 (3.60-5.2); RDW 13.4 % (11.6-15.6); WHITE BLOOD COUNT 11.8 K/mm3 (4.0-10.0)
[2017-03-25] MEDS: ONDANSETRON 4 MG/2 ML VIAL IVPUSH PRN (08:39)
[2017-03-25] MEDS: amLODIPine BESYLATE 10 MG TABLET (FP) PO SCH ×2 (10:00→10:04)
[2017-03-25] MEDS: ASPIRIN COATED 81 MG TABLET.EC PO SCH ×2 (10:00→10:04)
[2017-03-25] MEDS: CARVEDILOL 12.5 MG TABLET (FP) PO SCH ×3 (10:00→21:02)
[2017-03-25] MEDS: CLOPIDOGREL BISULFATE 75 MG TABLET (FP) PO SCH ×2 (10:00→10:04)
[2017-03-25] MEDS: LISINOPRIL 20 MG TABLET (FP) PO SCH ×2 (10:00→10:04)
[2017-03-25] MEDS: ERTAPENEM SODIUM 1 GM in SODIUM CHLORIDE 100 ML IVPB SCH (10:04)
[2017-03-25] MEDS: LIDOCAINE 5% TOPICAL PATCH TP SCH (10:05)
[2017-03-25] MEDS: SODIUM CHLORIDE 1,000 ML IV SCH (10:07)
--- NOTE | 2017-03-25 11:44 | PN ---
Physical Exam: SUBJECTIVE: Patient seen and examined, still c/o of numbness and tingling of bilateral feet. OBJECTIVE: Patient ambulated with PT only 25 feet today, c/o of numbness of feet [facility] home care being set up, pt finally agreed to this service Patient refusing rehab. Will need to be seen prior to discharge for further evaluation/improvement with ambulation Fall risk Outpatient follow up appointment with Dr. Konstantin Reyes on March 31 @ 2:15pm made on behalf of patient who agrees to follow up Vital Signs Period Temp Pulse Resp BP Sys/Rahman Pulse Ox Last 24 Hr 97.6 F-98.1 F 76-90 18-20 103-138/63-74 94 GENERAL: The patient is awake, alert, and fully oriented, in no acute distress. HEAD: Normal with no signs of trauma. EYES: PERRL, extraocular movements intact, sclera anicteric, conjunctiva clear. No ptosis. ENT: Ears normal, nares patent, oropharynx clear without exudates, moist mucous membranes. NECK: Trachea midline, full range of motion, supple. LUNGS: Breath sounds equal, clear to auscultation bilaterally HEART: Regular rate and rhythm, S1, S2 without murmur, rub or gallop. ABDOMEN: Soft, nontender, nondistended, c/o of nausea EXTREMITIES: 2+ pulses, warm, well-perfused, no edema. NEUROLOGICAL: Cranial nerves II through XII grossly intact. Normal speech, gait not observed. PSYCH: Normal mood, normal affect. SKIN: Warm, dry, normal turgor, no rashes or lesions noted Laboratory Results - last 24 hr 03/24/17 03/24/17 03/24/17 11:40 16:37 21:18 WBC RBC Hgb Hct MCV MCH MCHC RDW Plt Count MPV Neutrophils % Lymphocytes % Monocytes % Eosinophils % Basophils % Sodium Potassium Chloride Carbon Dioxide Anion Gap BUN Creatinine Creat Clearance w eGFR POC Glucometer 199 228 273 Random Glucose Calcium Total Bilirubin AST ALT Alkaline Phosphatase Total Protein Albumin 03/25/17 03/25/17 03/25/17 05:57 06:30 06:30 WBC 11.8 H RBC 3.42 L Hgb 9.7 L D Hct 29.9 L MCV 87.4 MCH 28.3 MCHC 32.4 RDW 13.4 Plt Count 337 MPV 8.8 Neutrophils % 73.7 Lymphocytes % 13.0 D Monocytes % 11.2 H Eosinophils % 1.3 D Basophils % 0.8 Sodium 136 Potassium 4.6 Chloride 101 Carbon Dioxide 28 Anion Gap 7 L BUN 18 Creatinine 1.0 Creat Clearance w eGFR 58.93 POC Glucometer 184 Random Glucose 170 H Calcium 7.5 L Total Bilirubin 0.4 D AST 21 ALT 27 Alkaline Phosphatase 75 Total Protein 5.2 L Albumin 1.5 L Active Medications Generic Name Dose Route Start Last Admin Trade Name Freq PRN Reason Stop Dose Admin Acetaminophen 650 mg 03/23/17 19:09 Tylenol - PO Q6H PRN PAIN Amlodipine Besylate 10 mg 03/24/17 10:00 03/25/17 10:00 Norvasc - PO Not Given DAILY [facility] Aspirin 81 mg 03/24/17 10:00 03/25/17 10:00 Ecotrin - PO Not Given DAILY [facility] Atorvastatin Calcium 80 mg 03/23/17 22:00 03/24/17 21:21 Lipitor - PO 80 mg HS [facility] Administration Carvedilol 12.5 mg 03/23/17 22:00 03/25/17 10:00 Coreg - PO Not Given BID [facility] Clopidogrel Bisulfate 75 mg 03/23/17 19:00 03/25/17 10:00 Plavix - PO Not Given DAILY [facility] Fentanyl 50 mcg 03/23/17 19:09 Sublimaze Injection - IVPUSH [id number] PRN PAIN-PACU ORDER X 4 DOSES ONLY Gabapentin 300 mg 03/23/17 22:00 03/25/17 05:59 Neurontin - PO 300 mg TID [facility] Administration Heparin Sodium (Porcine) 5,000 unit 03/23/17 22:00 03/25/17 05:58 Heparin - SQ 5,000 unit TID [facility] Administration Ertapenem 1 gm/ Sodium 100 mls @ 100 mls/hr 03/24/17 10:00 03/25/17 10:04 Chloride IVPB 100 mls/hr DAILY [facility] Administration Protocol Sodium Chloride 1,000 mls @ 100 mls/hr 03/23/17 19:09 03/25/17 10:07 Normal Saline - IV 100 mls/hr ASDIR [facility] Administration Insulin Aspart 1 vial 03/23/17 22:00 03/25/17 06:05 Novolog Vial Sliding Scale - SQ Not Given ACHS [facility] Protocol Insulin Detemir 10 units 01/17/18 22:00 03/24/17 21:22 Levemir Vial SQ 10 unit HS [facility] Administration Lidocaine 2 patch 03/24/17 10:00 03/25/17 10:05 Lidoderm Patch - TP Not Given DAILY [facility] Lisinopril 20 mg 03/24/17 10:00 03/25/17 10:00 Prinivil PO Not Given DAILY [facility] Miscellaneous 1 each 03/23/17 22:00 03/24/17 21:28 Lidoderm Patch Removal MC Not Given DAILY@2200 [facility] Ondansetron HCl 4 mg 03/24/17 14:43 03/25/17 08:39 Zofran Injection IVPUSH 4 mg Q6H PRN Administration NAUSEA AND/OR VOMITING Tramadol HCl 50 mg 03/23/17 19:09 03/24/17 21:20 Ultram - PO 50 mg Q6H PRN Administration PAIN LEVEL 6-10 Patient is a 51 year old female with a significant past medical history of hypertension, diabetes (on no home medication) and depression. She presents to the Emergency Room with complaints of worsening lower extremity pain and evaluation of her wounds on her bilateral heels. Patient does not have a primary care physician and is on no medications for her diabetes and hypertension. She states that over the past few weeks she has been experiencing worsening pain associated to the wounds on both feet, but the right was worse than the left. She reports pain with ambulation and worsening drainage of her wounds. She states that she also notes a numb sensation in her right lower extremity from her knee to her foot. She noted that both wounds on her heels bilaterally opened up and began draining clear fluid. Imaging: CTA with aorta runoff Impression: 1. peripheral vascular disease with severe stenosis and flow gap in the distal right SFA, severe stenosis in the right popliteal artery and likely multifocoal hemodynamically significant lunimal narrowing in the anterior tibial, postero tibial and peoneal arteries, secondary to calcified plaque. 2. Peripheral vascular disease with severe stenosis in the distal left superficial femoral artery. Severe stenosis in the distal left popliteal artery with flow gap, likely multifocal hemodynamically significant luminal narrowing in the anterior tibial, posterior tibial and peroneal arteries secondary to calcified plaque. Severe short segment luminal narrowing in the left dorsalis pedis. 4. enlarged lobulated uterus with multiple large leiomyomas ID: Sepsis secondary to diabetic wounds, resolved CTA as above, s/p aortogram, rle angiogram, SFA dcb angioplasty with stent placement, Popliteal artery dcb angioplasty Ertapenem stopped as per ID WBC trending down, no further tctachycardia Blood and urine cultures negative MRI bilateral LE negative for osteomylitis ID following, notes reviewed Vascular: PVD with severe stenosis and flow gap in the distal right SFA Severe stenosis in the right popliteal artery PVD with severe stenosis in the distal left superficial femoral artery s/p vascular surgery with stent placement ASA 81mg daily, Lipitor 80mg @ hs, Plavix 75mg daily Vascular follow up outpatient Cardiology: Hypertension, controlled Hypertensive Urgency, resolved Risk factors: uncontrolled htn, hyperlipidemia, dm, pvd On Lisinopril 20mg daily, coreq 12.5mg, BID Continue these medications at home Diastolic LV dysfunction Coreg 12.5mg BID ECHO revealed MAC, AV sclerosis, normal LV and RV size and function, trace MR Endocrine: Diabetes Mellitus, now controlled Glucometer ordered for home use, patient has used one before and is familiar with how to use it On Metformin 850mg BID, Januvia daily Will start these meds while inpatient, with BGM monitoring Outpatient follow up with Dr. Konstantin Reyes for medication adjustment Diabetic diet F.E.N. Fluids: tolerating PO Electrolytes: monitor Nutrition: diabetic diet Prophylaxis DVT: Heparin TID GI: Protonix Disposition: full code. Outpatient follow up appointment with Dr. Konstantin Reyes on March 31 @ 2:15pm made on behalf of patient who agrees to follow up Before patient returns to work, has to first be cleared by, Dr. Konstantin Reyes. I spoke to the HR department at the [facility] and they are requiring patient to be cleared by a PCP before returning to work. Visit type - Emergency Visit Emergency Visit: Yes ED Registration Date: 03/19/17 Care time: The patient presented to the Emergency Department on the above date and was hospitalized for further evaluation of their emergent condition. - New Patient This patient is new to me today: No - Critical Care Critical Care patient: No - Discharge Referral Referred to [facility] Med P.C.: Yes Physician Referral: Lashawn Saini MD ([facility])
[2017-03-25] MEDS ORDERED: INSULIN (NOVOLOG) ASPART 100 UNITS/ML 10ML VIAL ONE (11:46)
--- NOTE | 2017-03-25 12:03 | PN ---
Progress Note, Physician History of Present Illness: Pt POD#2 s/p aortogram, rle angiogram, SFA dcb angioplasty with stent placement , popliteal artery dcb angioplasty. She reports bilateral foot numbness and parasthesias along with nausea and emesis. - Current Medication List Current Medications: Active Medications Acetaminophen (Tylenol -) 650 mg PO Q6H PRN PRN Reason: PAIN Amlodipine Besylate (Norvasc -) 10 mg PO DAILY [facility] Last Admin: 03/25/17 10:00 Dose: Not Given Aspirin (Ecotrin -) 81 mg PO DAILY [facility] Last Admin: 03/25/17 10:00 Dose: Not Given Atorvastatin Calcium (Lipitor -) 80 mg PO HS [facility] Last Admin: 03/24/17 21:21 Dose: 80 mg Carvedilol (Coreg -) 12.5 mg PO BID [facility] Last Admin: 03/25/17 10:00 Dose: Not Given Clopidogrel Bisulfate (Plavix -) 75 mg PO DAILY [facility] Last Admin: 03/25/17 10:00 Dose: Not Given Fentanyl (Sublimaze Injection -) 50 mcg IVPUSH [id number] PRN PRN Reason: PAIN-PACU ORDER X 4 DOSES ONLY Gabapentin (Neurontin -) 300 mg PO TID [facility] Last Admin: 03/25/17 05:59 Dose: 300 mg Heparin Sodium (Porcine) (Heparin -) 5,000 unit SQ TID [facility] Last Admin: 03/25/17 05:58 Dose: 5,000 unit Ertapenem 1 gm/ Sodium (Chloride) 100 mls @ 100 mls/hr IVPB DAILY [facility] PRN Reason: Protocol Last Admin: 03/25/17 10:04 Dose: 100 mls/hr Insulin Aspart (Novolog Vial Sliding Scale -) 1 vial SQ ACHS [facility] PRN Reason: Protocol Last Admin: 03/25/17 12:01 Dose: 2 units Insulin Detemir (Levemir Vial) 10 units SQ HS [facility] Last Admin: 03/24/17 21:22 Dose: 10 unit Lidocaine (Lidoderm Patch -) 2 patch TP DAILY [facility] Last Admin: 03/25/17 10:05 Dose: Not Given Lisinopril (Prinivil) 20 mg PO DAILY [facility] Last Admin: 03/25/17 10:00 Dose: Not Given Miscellaneous (Lidoderm Patch Removal) 1 each MC DAILY@2200 [facility] Last Admin: 03/24/17 21:28 Dose: Not Given Ondansetron HCl (Zofran Injection) 4 mg IVPUSH Q6H PRN PRN Reason: NAUSEA AND/OR VOMITING Last Admin: 03/25/17 08:39 Dose: 4 mg Sitagliptin Phosphate (Januvia -) 25 mg PO DAILY@0700 [facility] Tramadol HCl (Ultram -) 50 mg PO Q6H PRN PRN Reason: PAIN LEVEL 6-10 Last Admin: 03/24/17 21:20 Dose: 50 mg - Objective Vital Signs: Vital Signs Temperature 97.9 F 03/25/17 09:26 Pulse Rate 76 03/25/17 09:26 Respiratory Rate 18 03/25/17 09:26 Blood Pressure 117/63 03/25/17 09:26 O2 Sat by Pulse Oximetry (%) 94 L 03/24/17 21:00 Constitutional: Yes: No Distress, Calm, Thin Neck: Yes: Supple Cardiovascular: Yes: Regular Rate and Rhythm Respiratory: Yes: Regular, Diminished Gastrointestinal: Yes: Normal Bowel Sounds, Soft Edema: Yes Edema: LLE: 1+ (ankle), RLE: 1+ (ankle) Labs: CBC, BMP 03/25/17 06:30 03/25/17 06:30 INR, PTT INR 1.02 (0.82-1.09) 03/23/17 06:00 Problem List - Problems (1) Hyperlipidemia associated with type 2 diabetes mellitus Code(s): E11.69 - TYPE 2 DIABETES MELLITUS WITH OTHER SPECIFIED COMPLICATION; E78.5 - HYPERLIPIDEMIA, UNSPECIFIED (2) Type 2 diabetes mellitus Code(s): E11.9 - TYPE 2 DIABETES MELLITUS WITHOUT COMPLICATIONS Qualifiers: Diabetes mellitus complication status: with circulatory complication Diabetes mellitus complication detail: with peripheral angiopathy with gangrene Diabetes mellitus termite exterminator insulin use: without termite exterminator use Qualified Code(s): E11.52 - Type 2 diabetes mellitus with diabetic peripheral angiopathy with gangrene (3) Hypertensive urgency Code(s): I16.0 - HYPERTENSIVE URGENCY (4) Femoral-popliteal artery atherosclerosis Code(s): I70.209 - UNSP ATHSCL [place] ARTERIES OF EXTREMITIES, UNSP EXTREMITY (5) Poor compliance Code(s): Z91.19 - PATIENT'S NONCOMPLIANCE W OTH MEDICAL TREATMENT AND REGIMEN (6) PVD (peripheral vascular disease) Code(s): I73.9 - PERIPHERAL VASCULAR DISEASE, UNSPECIFIED (7) Foot ulcer Code(s): L97.509 - NON-PRESSURE CHRONIC ULCER OTH PRT UNSP FOOT W UNSP SEVERITY Qualifiers: Laterality: unspecified laterality Non-pressure ulcer stage: unspecified non-pressure ulcer stage Qualified Code(s): L97.509 - Non-pressure chronic ulcer of other part of unspecified foot with unspecified severity (8) Diabetic neuropathy with neurologic complication Code(s): E11.40 - TYPE 2 DIABETES MELLITUS WITH DIABETIC NEUROPATHY, UNSP; E11.49 - TYPE 2 DIABETES W OTH DIABETIC NEUROLOGICAL COMPLICATION (9) Diabetic gastroparesis associated with type 2 diabetes mellitus Code(s): E11.43 - TYPE 2 DIABETES W DIABETIC AUTONOMIC (POLY)NEUROPATHY; K31.84 - GASTROPARESIS Assessment/Plan Echocardiography revealed MAC, AV sclerosis, normal LV and RV size and function , trace MR 1. Symptomatic PAD with non-healing bilateral heal ulcers s/p aortogram, rle angiogram, SFA dcb angioplasty with stent placement, Popliteal artery dcb angioplasty 2. Bilateral lower extremity parasthesia, possible diabetic neuropathy 3. 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 Diastolic LV dysfunction with class 0-I NYHA classification LV failure, compensated/euvolemic 5. Heart murmur related to aortic valve sclerosis 6. HTN, BP with improved control 7. Poorly controlled Type 2 DM c/b neuropathy, gastroparesis and vasculopathy 8. Hypercholesterolemia 9. Anemia 10. Poor compliance with medical F/U PLAN: 1. Continue ASA 81 qd and Plavix 75 qd per vascular 2. Continue Norvasc 10 qd 3. Continue Prinivil 20 qd 4. Continue Coreg 12.5 bid and titrate dosage as tolerated 5. Continue Lipitor 80 qhs 6. Aggressive diabetes mellitus management, complete empiric abx course 7. Analgesia for neuropathic pain and pro-motility agents such as Reglan for gastroparesis
[2017-03-25] MEDS: sitaGLIPtin PHOSPHATE 25 MG TABLET (FP) PO SCH (12:27)
--- NOTE | 2017-03-25 14:27 | PN ---
Progress Note, Physician History of Present Illness: c/o vomiting weak - Current Medication List Current Medications: Active Medications Acetaminophen (Tylenol -) 650 mg PO Q6H PRN PRN Reason: PAIN Amlodipine Besylate (Norvasc -) 10 mg PO DAILY [facility] Last Admin: 03/25/17 10:00 Dose: Not Given Aspirin (Ecotrin -) 81 mg PO DAILY [facility] Last Admin: 03/25/17 10:00 Dose: Not Given Atorvastatin Calcium (Lipitor -) 80 mg PO [facility] Last Admin: 03/24/17 21:21 Dose: 80 mg Carvedilol (Coreg -) 12.5 mg PO BID [facility] Last Admin: 03/25/17 10:00 Dose: Not Given Clopidogrel Bisulfate (Plavix -) 75 mg PO DAILY [facility] Last Admin: 03/25/17 10:00 Dose: Not Given Fentanyl (Sublimaze Injection -) 50 mcg IVPUSH [id number] PRN PRN Reason: PAIN-PACU ORDER X 4 DOSES ONLY Gabapentin (Neurontin -) 300 mg PO TID [facility] Last Admin: 03/25/17 05:59 Dose: 300 mg Heparin Sodium (Porcine) (Heparin -) 5,000 unit SQ TID [facility] Last Admin: 03/25/17 05:58 Dose: 5,000 unit Ertapenem 1 gm/ Sodium (Chloride) 100 mls @ 100 mls/hr IVPB DAILY [facility] PRN Reason: Protocol Last Admin: 03/25/17 10:04 Dose: 100 mls/hr Insulin Aspart (Novolog Vial Sliding Scale -) 1 vial SQ [facility] PRN Reason: Protocol Last Admin: 03/25/17 12:01 Dose: 2 units Insulin Detemir (Levemir Vial) 10 units SQ [facility] Last Admin: 03/24/17 21:22 Dose: 10 unit Lidocaine (Lidoderm Patch -) 2 patch TP DAILY [facility] Last Admin: 03/25/17 10:05 Dose: Not Given Lisinopril (Prinivil) 20 mg PO DAILY [facility] Last Admin: 03/25/17 10:00 Dose: Not Given Metoclopramide HCl (Reglan -) 10 mg PO [facility] Miscellaneous (Lidoderm Patch Removal) 1 each MC DAILY@2200 [facility] Last Admin: 03/24/17 21:28 Dose: Not Given Sitagliptin Phosphate (Januvia -) 25 mg PO DAILY@0700 [facility] Last Admin: 03/25/17 12:27 Dose: 25 mg Tramadol HCl (Ultram -) 50 mg PO Q6H PRN PRN Reason: PAIN LEVEL 6-10 Last Admin: 03/24/17 21:20 Dose: 50 mg - Objective Vital Signs: Vital Signs Temperature 97.9 F 03/25/17 09:26 Pulse Rate 76 03/25/17 09:26 Respiratory Rate 18 03/25/17 09:26 Blood Pressure 117/63 03/25/17 09:26 O2 Sat by Pulse Oximetry (%) 94 L 03/24/17 21:00 Constitutional: Yes: Calm, Mild Distress Cardiovascular: Yes: Regular Rate and Rhythm Respiratory: Yes: Regular, CTA Bilaterally Gastrointestinal: Yes: Normal Bowel Sounds, Soft Musculoskeletal: Yes: Other Extremities: Yes: Other Neurological: Yes: Alert, Oriented Psychiatric: Yes: Alert, Oriented Labs: CBC, BMP 03/25/17 06:30 03/25/17 06:30 INR, PTT INR 1.02 (0.82-1.09) 03/23/17 06:00 Assessment/Plan dm htn pvd sepsis plan stopped abx monitor vomiting and electrolytes gi to see the patient rest as per primary team
--- NOTE | 2017-03-25 14:36 | CON.GI ---
Consult Consult Specialty:: GI - History of Present Illness History of Present Illness: Chart reviewed. Events noted. A 51 yof with symptomatic periferal vasular disease, uncontrolled DM, s/p peripheral vascular intervention now has nausea, vomiting and new onset hard stools/constipation. Pt reports dizziness on standing, or sitting up, which leads to nausea and eventually vomiting, onset during this admission. There is no dysphagia, odynophagia, melena, hematochezia, changes in stool caliper, jauindice. No history of gastrointestinal, or pancreaticobiliary issues. No history of chronic NSAIDs. Prior to admission was not on any DM, HTN regiments. - History Source History Provided By: Patient, Medical Record - Past Medical History ...LMP: 03/19/17 ...: No - Alcohol/Substance Use Hx Alcohol Use: No - Smoking History Smoking history: Never smoked Home Medications - Allergies Allergies/Adverse Reactions: Allergies Allergy/AdvReac Type Severity Reaction Status Date / Time Penicillins Allergy Unknown Verified 03/19/17 09:19 - Home Medications Home Medications: Ambulatory Orders NK [No Known Home Medication] 03/19/17 Family Disease History - Family Disease History Family History: Unremarkable (non-contributory) Review of Systems Findings/Remarks: as per H&P Physical Exam-GI Vital Signs: Vital Signs Temperature 97.9 F 03/25/17 09:26 Pulse Rate 76 03/25/17 09:26 Respiratory Rate 18 03/25/17 09:26 Blood Pressure 117/63 03/25/17 09:26 O2 Sat by Pulse Oximetry (%) 94 L 03/24/17 21:00 Constitutional: Yes: No Distress, Calm Eyes: Yes: Conjunctiva Clear HENT: Yes: Atraumatic Neck: Yes: Supple Cardiovascular: Yes: Regular Rate and Rhythm Respiratory: Yes: Regular ...Auscultate: Yes: Normoactive Bowel Sounds ...Palpate: No: Firm/Rigid, Guarding, Tenderness, Tenderness, Rebound Neurological: Yes: Alert, Oriented Labs: CBC, BMP 03/25/17 06:30 03/25/17 06:30 INR, PTT INR 1.02 (0.82-1.09) 03/23/17 06:00 Laboratory Results - last 24 hr 03/24/17 03/24/17 03/24/17 11:40 16:37 21:18 WBC RBC Hgb Hct MCV MCH MCHC RDW Plt Count MPV Neutrophils % Lymphocytes % Monocytes % Eosinophils % Basophils % Sodium Potassium Chloride Carbon Dioxide Anion Gap BUN Creatinine Creat Clearance w eGFR POC Glucometer 199 228 273 Random Glucose Calcium Total Bilirubin AST ALT Alkaline Phosphatase Total Protein Albumin 03/25/17 03/25/17 03/25/17 05:57 06:30 06:30 WBC 11.8 H RBC 3.42 L Hgb 9.7 L D Hct 29.9 L MCV 87.4 MCH 28.3 MCHC 32.4 RDW 13.4 Plt Count 337 MPV 8.8 Neutrophils % 73.7 Lymphocytes % 13.0 D Monocytes % 11.2 H Eosinophils % 1.3 D Basophils % 0.8 Sodium 136 Potassium 4.6 Chloride 101 Carbon Dioxide 28 Anion Gap 7 L BUN 18 Creatinine 1.0 Creat Clearance w eGFR 58.93 POC Glucometer 184 Random Glucose 170 H Calcium 7.5 L Total Bilirubin 0.4 D AST 21 ALT 27 Alkaline Phosphatase 75 Total Protein 5.2 L Albumin 1.5 L Problem List - Problems (1) Nausea & vomiting Code(s): R11.2 - NAUSEA WITH VOMITING, UNSPECIFIED (2) Diabetic gastroparesis associated with type 2 diabetes mellitus Code(s): E11.43 - TYPE 2 DIABETES W DIABETIC AUTONOMIC (POLY)NEUROPATHY; K31.84 - GASTROPARESIS (3) Diabetic neuropathy with neurologic complication Code(s): E11.40 - TYPE 2 DIABETES MELLITUS WITH DIABETIC NEUROPATHY, UNSP; E11.49 - TYPE 2 DIABETES W OTH DIABETIC NEUROLOGICAL COMPLICATION (4) Femoral-popliteal artery atherosclerosis Code(s): I70.209 - UNSP ATHSCL [place] ARTERIES OF EXTREMITIES, UNSP EXTREMITY (5) Poor compliance Code(s): Z91.19 - PATIENT'S NONCOMPLIANCE W OT MEDICAL TREATMENT AND REGIMEN Assessment/Plan A 51 yof with uncontrolled DM and peripheral manifestations of the same with new onset of nausea, and vomiting, in part, brought up by suddenly standing or sitting up. The etiologies include new to the patient narcotics, antihypertensive medications; autonomic vascular disfunction; gastroparesis, gastritis, duodenitis, etc. As discussed with the patient; small frequent, low fat and fiber meals. Avoid, or minimize narcotics if possible (tranadol, fentanyl) Monitor BP, HR on new (to the pt) medications Miralax bid PPI po qd Gastric emptying study Recommend holding Reglan until gastric emptying study results are in will follow
[2017-03-25] MEDS ORDERED: BISACODYL 10 MG SUPP.RECT PR ONE (14:42)
[2017-03-25] MEDS ORDERED: POLYETHYLENE GLYCOL 3350 119 GM BTL PO ONE (14:42)
[2017-03-25] MEDS: DOCUSATE SODIUM 100 MG CAPSULE (FP) PO SCH ×2 (15:02→21:02)
[2017-03-25] MEDS: traMADol HCL 50 MG TABLET PO PRN (15:05)
[2017-03-25] MEDS ORDERED: METOCLOPRAMIDE HCL 10 MG TABLET (FP) PO SCH (16:30)
[2017-03-25] MEDS: ATORVASTATIN CA 80 MG TABLET (FP) PO SCH (21:02)
[2017-03-25] MEDS ORDERED: traMADol HCL 50 MG TABLET PO ONE (21:03)
[2017-03-25] MEDS: LIDOCAINE PATCH REMOVAL MC SCH (21:03)
[2017-03-26] MEDS ORDERED: PT OWN MED DRAWER 7, Y5N ONE (05:11)
[2017-03-26] MEDS: DOCUSATE SODIUM 100 MG CAPSULE (FP) PO SCH ×3 (06:17→23:13)
[2017-03-26] MEDS: GABAPENTIN 300 MG CAPSULE (FP) PO SCH ×3 (06:18→23:12)
[2017-03-26] MEDS: HEPARIN NA (PORCINE) 5,000 UNITS/ML 1ML VIAL SQ SCH ×3 (06:18→23:13)
[2017-03-26] MEDS: sitaGLIPtin PHOSPHATE 25 MG TABLET (FP) PO SCH (06:19)
--- NOTE | 2017-03-26 08:02 | CONSULT ---
Consult - text type - Consultation Consultation Note: Podiatry Consultation: 51 year old DM F presents with bilateral foot non-healing wounds with pressure blister R heel. Patient unknown of duration of wounds. Does have PVD s/p angioplasty RLE with DR. Byrnes. Denies F/V/N/C/SOB/CP. Afebrile, VSS. MARIE: R foot: posterior heel pressure blister, fluctuant, no probing to bone, no purulent drainage, no periwound erythema, no ascending cellulitis, no signs of active infection. Moderate tenderness to palpation. Pedal pulses dopplerable, non-palpable. L foot: posterior heel linear non-healing fissures with underlying necrotic base , no probing to bone, no purulent drainage, no fluctuance, no ascending cellulitis, no signs of active infection. Moderate tenderness to palpation. Pedal pulses non-palpable. WBC: 11.8 Imp: 51 year old F with bilateral heel pressure ulcers 1. Heel offloading measures 2. May need debridement, particularly R heel, if condition does not improve 3. Will watch for now. Now that she had revascularization done it should improve. 4. Thank you for the courtesy of this consultation. Minnie Bhakta DPM
[2017-03-26] MEDS: ONDANSETRON *ODT* 4 MG TABLET SL PRN (08:06)
[2017-03-26] MEDS: CLOPIDOGREL BISULFATE 75 MG TABLET (FP) PO SCH (10:19)
[2017-03-26] MEDS: amLODIPine BESYLATE 10 MG TABLET (FP) PO SCH (10:19)
[2017-03-26] MEDS: LISINOPRIL 20 MG TABLET (FP) PO SCH (10:19)
[2017-03-26] MEDS: ASPIRIN COATED 81 MG TABLET.EC PO SCH (10:20)
[2017-03-26] MEDS: LIDOCAINE 5% TOPICAL PATCH TP SCH (10:20)
[2017-03-26] MEDS: CARVEDILOL 12.5 MG TABLET (FP) PO SCH ×2 (10:20→23:13)
--- NOTE | 2017-03-26 13:23 | PN ---
Progress Note, Physician History of Present Illness: Pt seen and examined. Events noted. Pt is s/p RLE angioplasty. C/o b/l feet swelling. - Current Medication List Current Medications: Active Medications Acetaminophen (Tylenol -) 650 mg PO Q6H PRN PRN Reason: PAIN Amlodipine Besylate (Norvasc -) 10 mg PO DAILY [facility] Last Admin: 03/26/17 10:19 Dose: 10 mg Aspirin (Ecotrin -) 81 mg PO DAILY [facility] Last Admin: 03/26/17 10:20 Dose: 81 mg Atorvastatin Calcium (Lipitor -) 80 mg PO HS [facility] Last Admin: 03/25/17 21:02 Dose: 80 mg Carvedilol (Coreg -) 12.5 mg PO BID [facility] Last Admin: 03/26/17 10:20 Dose: 12.5 mg Clopidogrel Bisulfate (Plavix -) 75 mg PO DAILY [facility] Last Admin: 03/26/17 10:19 Dose: 75 mg Docusate Sodium (Colace -) 100 mg PO TID [facility] Last Admin: 03/26/17 06:17 Dose: 100 mg Gabapentin (Neurontin -) 300 mg PO TID [facility] Last Admin: 03/26/17 06:18 Dose: 300 mg Heparin Sodium (Porcine) (Heparin -) 5,000 unit SQ TID [facility] Last Admin: 03/26/17 06:18 Dose: 5,000 unit Lidocaine (Lidoderm Patch -) 2 patch TP DAILY [facility] Last Admin: 03/26/17 10:20 Dose: Not Given Lisinopril (Prinivil) 20 mg PO DAILY [facility] Last Admin: 03/26/17 10:19 Dose: 20 mg Metformin HCl (Glucophage -) 850 mg PO BID@0700,1630 [facility] Last Admin: 03/26/17 06:18 Dose: 850 mg Miscellaneous (Lidoderm Patch Removal) 1 each MC DAILY@2200 [facility] Last Admin: 03/25/17 21:03 Dose: Not Given Ondansetron HCl (Zofran Odt -) 4 mg SL Q6H PRN PRN Reason: NAUSEA AND/OR VOMITING Last Admin: 03/26/17 08:06 Dose: 4 mg Sitagliptin Phosphate (Januvia -) 25 mg PO DAILY@0700 [facility] Last Admin: 03/26/17 06:19 Dose: 25 mg - Objective Vital Signs: Vital Signs Temperature 98.2 F 03/26/17 10:22 Pulse Rate 93 H 03/26/17 10:22 Respiratory Rate 18 03/26/17 10:22 Blood Pressure 147/81 03/26/17 10:22 O2 Sat by Pulse Oximetry (%) 98 03/26/17 08:10 Constitutional: Yes: No Distress, Calm Cardiovascular: Yes: Regular Rate and Rhythm Respiratory: Yes: CTA Bilaterally Gastrointestinal: Yes: Normal Bowel Sounds, Soft Genitourinary: Yes: WNL Extremities: Yes: Other (b/l heel blisters, dry, no warmth, +pedal edema) Edema: Yes (b/l foot) Wound/Incision: Yes: Clean/Dry Labs: CBC, BMP 03/25/17 06:30 03/25/17 06:30 INR, PTT INR 1.02 (0.82-1.09) 03/23/17 06:00 Problem List - Problems (1) Diabetic neuropathy with neurologic complication Code(s): E11.40 - TYPE 2 DIABETES MELLITUS WITH DIABETIC NEUROPATHY, UNSP; E11.49 - TYPE 2 DIABETES W OTH DIABETIC NEUROLOGICAL COMPLICATION (2) Femoral-popliteal artery atherosclerosis Code(s): I70.209 - UNSP ATHSCL [place] ARTERIES OF EXTREMITIES, UNSP EXTREMITY (3) PVD (peripheral vascular disease) Code(s): I73.9 - PERIPHERAL VASCULAR DISEASE, UNSPECIFIED (4) Type 2 diabetes mellitus Code(s): E11.9 - TYPE 2 DIABETES MELLITUS WITHOUT COMPLICATIONS Qualifiers: Diabetes mellitus complication status: with circulatory complication Diabetes mellitus complication detail: with peripheral angiopathy with gangrene Diabetes mellitus completions manager insulin use: without completions manager use Qualified Code(s): E11.52 - Type 2 diabetes mellitus with diabetic peripheral angiopathy with gangrene Assessment/Plan B/L heel pressure blisters PVD s/p RLE angioplasty - s/p course of antibiotics - continue monitor, no current signs of infection
[2017-03-26] MEDS: ACETAMINOPHEN 325 MG TABLET (FP) PO PRN (14:31)
--- NOTE | 2017-03-26 21:02 | PN ---
Progress Note, Physician History of Present Illness: Pt POD#3 s/p aortogram, rle angiogram, SFA dcb angioplasty with stent placement , popliteal artery dcb angioplasty. - Current Medication List Current Medications: Active Medications Acetaminophen (Tylenol -) 650 mg PO Q6H PRN PRN Reason: PAIN Last Admin: 03/26/17 14:31 Dose: 650 mg Amlodipine Besylate (Norvasc -) 10 mg PO DAILY [facility] Last Admin: 03/26/17 10:19 Dose: 10 mg Aspirin (Ecotrin -) 81 mg PO DAILY [facility] Last Admin: 03/26/17 10:20 Dose: 81 mg Atorvastatin Calcium (Lipitor -) 80 mg PO HS [facility] Last Admin: 03/25/17 21:02 Dose: 80 mg Carvedilol (Coreg -) 12.5 mg PO BID [facility] Last Admin: 03/26/17 10:20 Dose: 12.5 mg Clopidogrel Bisulfate (Plavix -) 75 mg PO DAILY [facility] Last Admin: 03/26/17 10:19 Dose: 75 mg Docusate Sodium (Colace -) 100 mg PO TID [facility] Last Admin: 03/26/17 14:31 Dose: 100 mg Gabapentin (Neurontin -) 300 mg PO TID [facility] Last Admin: 03/26/17 14:31 Dose: 300 mg Heparin Sodium (Porcine) (Heparin -) 5,000 unit SQ TID [facility] Last Admin: 03/26/17 14:32 Dose: 5,000 unit Lidocaine (Lidoderm Patch -) 2 patch TP DAILY [facility] Last Admin: 03/26/17 10:20 Dose: Not Given Lisinopril (Prinivil) 20 mg PO DAILY [facility] Last Admin: 03/26/17 10:19 Dose: 20 mg Metformin HCl (Glucophage -) 850 mg PO BID@0700,1630 [facility] Last Admin: 03/26/17 17:21 Dose: 850 mg Miscellaneous (Lidoderm Patch Removal) 1 each MC DAILY@2200 [facility] Last Admin: 03/25/17 21:03 Dose: Not Given Ondansetron HCl (Zofran Odt -) 4 mg SL Q6H PRN PRN Reason: NAUSEA AND/OR VOMITING Last Admin: 03/26/17 08:06 Dose: 4 mg Sitagliptin Phosphate (Januvia -) 25 mg PO DAILY@0700 [facility] Last Admin: 03/26/17 06:19 Dose: 25 mg Tramadol HCl (Ultram -) 50 mg PO Q6H PRN PRN Reason: PAIN LEVEL 4 - 6 - Objective Vital Signs: Vital Signs Temperature 98.8 F 03/26/17 18:00 Pulse Rate 92 H 03/26/17 18:00 Respiratory Rate 20 03/26/17 18:00 Blood Pressure 113/72 03/26/17 18:00 O2 Sat by Pulse Oximetry (%) 98 03/26/17 08:10 Constitutional: Yes: No Distress, Calm Neck: Yes: Supple Cardiovascular: Yes: Regular Rate and Rhythm Respiratory: Yes: Regular, Diminished Gastrointestinal: Yes: Normal Bowel Sounds, Soft Edema: Yes Edema: LLE: 1+, RLE: 1+ Labs: CBC, BMP 03/25/17 06:30 03/25/17 06:30 INR, PTT INR 1.02 (0.82-1.09) 03/23/17 06:00 Problem List - Problems (1) Hyperlipidemia associated with type 2 diabetes mellitus Code(s): E11.69 - TYPE 2 DIABETES MELLITUS WITH OTHER SPECIFIED COMPLICATION; E78.5 - HYPERLIPIDEMIA, UNSPECIFIED (2) Type 2 diabetes mellitus Code(s): E11.9 - TYPE 2 DIABETES MELLITUS WITHOUT COMPLICATIONS Qualifiers: Diabetes mellitus complication status: with circulatory complication Diabetes mellitus complication detail: with peripheral angiopathy with gangrene Diabetes mellitus termite exterminator helper insulin use: without senior care use Qualified Code(s): E11.52 - Type 2 diabetes mellitus with diabetic peripheral angiopathy with gangrene (3) Hypertensive urgency Code(s): I16.0 - HYPERTENSIVE URGENCY (4) Femoral-popliteal artery atherosclerosis Code(s): I70.209 - UNSP ATHSCL [place] ARTERIES OF EXTREMITIES, UNSP EXTREMITY (5) Poor compliance Code(s): Z91.19 - PATIENT'S NONCOMPLIANCE W OTH MEDICAL TREATMENT AND REGIMEN (6) PVD (peripheral vascular disease) Code(s): I73.9 - PERIPHERAL VASCULAR DISEASE, UNSPECIFIED (7) Foot ulcer Code(s): L97.509 - NON-PRESSURE CHRONIC ULCER OTH PRT UNSP FOOT W UNSP SEVERITY Qualifiers: Laterality: unspecified laterality Non-pressure ulcer stage: unspecified non-pressure ulcer stage Qualified Code(s): L97.509 - Non-pressure chronic ulcer of other part of unspecified foot with unspecified severity (8) Diabetic neuropathy with neurologic complication Code(s): E11.40 - TYPE 2 DIABETES MELLITUS WITH DIABETIC NEUROPATHY, UNSP; E11.49 - TYPE 2 DIABETES W OTH DIABETIC NEUROLOGICAL COMPLICATION (9) Diabetic gastroparesis associated with type 2 diabetes mellitus Code(s): E11.43 - TYPE 2 DIABETES W DIABETIC AUTONOMIC (POLY)NEUROPATHY; K31.84 - GASTROPARESIS Assessment/Plan Echocardiography revealed MAC, AV sclerosis, normal LV and RV size and function , trace MR 1. Symptomatic PAD with non-healing bilateral heal ulcers s/p aortogram, rle angiogram, SFA dcb angioplasty with stent placement, Popliteal artery dcb angioplasty 2. Bilateral lower extremity parasthesia, possible diabetic neuropathy 3. 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 Diastolic LV dysfunction with class 0-I NYHA classification LV failure, compensated/euvolemic 5. Heart murmur related to aortic valve sclerosis 6. HTN, BP with improved control 7. Poorly controlled Type 2 DM c/b neuropathy, gastroparesis and vasculopathy 8. Hypercholesterolemia 9. Anemia 10. Poor compliance with medical F/U PLAN: 1. Continue ASA 81 qd and Plavix 75 qd per vascular 2. Continue Norvasc 10 qd 3. Continue Prinivil 20 qd 4. Continue Coreg 12.5 bid and titrate dosage as tolerated 5. Continue Lipitor 80 qhs 6. Aggressive diabetes mellitus management, completed empiric abx course 7. Analgesia for neuropathic pain, f/u gastric emptying study
--- NOTE | 2017-03-26 21:19 | PN ---
Physical Exam: SUBJECTIVE: Patient seen and examined. She c/o feet numbness and pain and cannot walk. OBJECTIVE: Vital Signs Period Temp Pulse Resp BP Sys/Rahman Pulse Ox Last 24 Hr 98.2 F-98.8 F 92-100 18-20 113-147/64-81 98 PE Neuro: alert, awake, cn 2-12intact Pulm: CTAB CV: s1 s2 rrr no mrg Abd: s nt nd +bs Ext: L heel eschar, le edema +1, b/l plantar feet numbness Laboratory Results - last 24 hr 03/26/17 03/26/17 06:16 17:22 POC Glucometer 178 293 Active Medications Generic Name Dose Route Start Last Admin Trade Name Freq PRN Reason Stop Dose Admin Acetaminophen 650 mg 03/23/17 19:09 03/26/17 14:31 Tylenol - PO 650 mg Q6H PRN Administration PAIN Amlodipine Besylate 10 mg 03/24/17 10:00 03/26/17 10:19 Norvasc - PO 10 mg DAILY JESSICA Administration Aspirin 81 mg 03/24/17 10:00 03/26/17 10:20 Ecotrin - PO 81 mg DAILY JESSICA Administration Atorvastatin Calcium 80 mg 03/23/17 22:00 03/25/17 21:02 Lipitor - PO 80 mg HS JESSICA Administration Carvedilol 12.5 mg 03/23/17 22:00 03/26/17 10:20 Coreg - PO 12.5 mg BID JESSICA Administration Clopidogrel Bisulfate 75 mg 03/23/17 19:00 03/26/17 10:19 Plavix - PO 75 mg DAILY JESSICA Administration Docusate Sodium 100 mg 03/25/17 14:45 03/26/17 14:31 Colace - PO 100 mg TID JESSICA Administration Gabapentin 300 mg 03/23/17 22:00 03/26/17 14:31 Neurontin - PO 300 mg TID JESSICA Administration Heparin Sodium (Porcine) 5,000 unit 03/23/17 22:00 03/26/17 14:32 Heparin - SQ 5,000 unit TID JESSICA Administration Lidocaine 2 patch 03/24/17 10:00 03/26/17 10:20 Lidoderm Patch - TP Not Given DAILY JESSICA Lisinopril 20 mg 03/24/17 10:00 03/26/17 10:19 Prinivil PO 20 mg DAILY JESSICA Administration Metformin HCl 850 mg 03/25/17 16:30 03/26/17 17:21 Glucophage - PO 850 mg BID@0700,1630 JESSICA Administration Miscellaneous 1 each 03/23/17 22:00 03/25/17 21:03 Lidoderm Patch Removal MC Not Given DAILY@2200 JESSICA Ondansetron HCl 4 mg 03/25/17 15:53 03/26/17 08:06 Zofran Odt - SL 4 mg Q6H PRN Administration NAUSEA AND/OR VOMITING Sitagliptin Phosphate 25 mg 03/25/17 12:00 03/26/17 06:19 Januvia - PO 25 mg DAILY@0700 JESSICA Administration Tramadol HCl 50 mg 03/26/17 15:15 Ultram - PO Q6H PRN PAIN LEVEL 4 - 6 Assessment: 51 year old female with pmhx of HTN, uncontrolled DM diabetes (on no meds) and depression worsening lower extremity pain and eval of b/l heels. Plan: 1. Sepsis secondary to diabetic wounds - Resolved, off abx 2. PVD with severe stenosis - s/p angioplasty/angiogram for right distal sfa, popliteal disease w/ stent placement 03/23 - ASA daily - Lipitor 80mg HD - Zetia 10mg daily - Consider PSCK9 if LDL cannot be reached, defer to cards 3. Diabetic neuropathy - Increase Gabapentin 600 TID - Ultram PRN 4. Diastolic LV dysfunction - Stable - Coreg 12.5mg BID - ECHO revealed MAC, AV sclerosis, normal LV and RV size and function, trace MR 5. HTN - Norvasc 10mg daily - Lisinopril 20mg daily - Increased Coreg 12.5mg BID 6. DM II, uncontrolled - Stop PO while inpt - restart Levemir 10units hs - ISS, BGM ACHS Visit type - Emergency Visit Emergency Visit: Yes ED Registration Date: 03/19/17 Care time: The patient presented to the Emergency Department on the above date and was hospitalized for further evaluation of their emergent condition. - New Patient This patient is new to me today: No - Critical Care Critical Care patient: No
[2017-03-26] MEDS: ATORVASTATIN CA 80 MG TABLET (FP) PO SCH (23:13)
[2017-03-26] MEDS: INSULIN DETEMIR 100 UNITS/ML MDV SQ SCH (23:14)
[2017-03-26] MEDS: INSULIN SLIDING SCALE (NOVOLOG) 1 VIAL SQ SCH (23:15)
[2017-03-26] MEDS: LIDOCAINE PATCH REMOVAL MC SCH (23:15)
[2017-03-27] MEDS: GABAPENTIN 300 MG CAPSULE (FP) PO SCH ×3 (06:57→22:32)
[2017-03-27] MEDS: DOCUSATE SODIUM 100 MG CAPSULE (FP) PO SCH ×3 (06:57→22:33)
[2017-03-27] MEDS: HEPARIN NA (PORCINE) 5,000 UNITS/ML 1ML VIAL SQ SCH ×3 (06:58→22:33)
[2017-03-27] MEDS: INSULIN SLIDING SCALE (NOVOLOG) 1 VIAL SQ SCH ×4 (07:01→22:27)
[2017-03-27 07:14] LABS: ANION GAP 7 (8-16); BLOOD UREA NITROGEN 24 mg/dL (7-18); CALCIUM 7.3 mg/dL (8.5-10.1); CHLORIDE 101 mmol/L (98-107); CO2 29 mmol/L (21-32); CREATININE 0.9 mg/dL (0.55-1.02); GLUCOSE,RANDOM 144 mg/dL (74-106); POTASSIUM 5.1 mmol/L (3.5-5.1); SODIUM 137 mmol/L (136-145)
[2017-03-27 07:26] LABS: BASO % 0.8 % (0-2.0); EOS % 1.7 % (0-4.5); HEMATOCRIT 28.6 % (32.4-45.2); HEMOGLOBIN 9.2 GM/dL (10.7-15.3); LYMPH % 13.6 % (8-40); MCH 27.7 pg (25.7-33.7); MCHC 32.1 g/dl (32.0-36.0); MEAN CELL VOLUME 86.2 fl (80-96); MEAN PLT VOLUME 8.4 fl (7.5-11.1); MONO % 11.2 % (3.8-10.2); NEUT % 72.7 % (42.8-82.8); PLATELET COUNT 367 K/MM3 (134-434); RBC 3.32 M/mm3 (3.60-5.2); RDW 13.6 % (11.6-15.6); WHITE BLOOD COUNT 11.6 K/mm3 (4.0-10.0)
[2017-03-27] MEDS: traMADol HCL 50 MG TABLET PO PRN ×2 (09:23→22:41)
[2017-03-27] MEDS: amLODIPine BESYLATE 10 MG TABLET (FP) PO SCH (09:23)
[2017-03-27] MEDS: CLOPIDOGREL BISULFATE 75 MG TABLET (FP) PO SCH (09:24)
[2017-03-27] MEDS: LISINOPRIL 20 MG TABLET (FP) PO SCH (09:24)
[2017-03-27] MEDS: LIDOCAINE 5% TOPICAL PATCH TP SCH (09:24)
[2017-03-27] MEDS: CARVEDILOL 12.5 MG TABLET (FP) PO SCH ×2 (09:24→22:33)
[2017-03-27] MEDS: ASPIRIN COATED 81 MG TABLET.EC PO SCH (09:24)
--- NOTE | 2017-03-27 12:24 | PN ---
Progress Note, Physician History of Present Illness: Pt without new complaints. Has swelling in both feet and discomfort in Rt heel. Erythema in Rt foot decreased. Remains afebrile. - Current Medication List Current Medications: Active Medications Acetaminophen (Tylenol -) 650 mg PO Q6H PRN PRN Reason: PAIN Last Admin: 03/26/17 14:31 Dose: 650 mg Amlodipine Besylate (Norvasc -) 10 mg PO DAILY [facility] Last Admin: 03/27/17 09:23 Dose: 10 mg Aspirin (Ecotrin -) 81 mg PO DAILY [facility] Last Admin: 03/27/17 09:24 Dose: 81 mg Atorvastatin Calcium (Lipitor -) 80 mg PO HS [facility] Last Admin: 03/26/17 23:13 Dose: 80 mg Carvedilol (Coreg -) 12.5 mg PO BID [facility] Last Admin: 03/27/17 09:24 Dose: 12.5 mg Clopidogrel Bisulfate (Plavix -) 75 mg PO DAILY [facility] Last Admin: 03/27/17 09:24 Dose: 75 mg Docusate Sodium (Colace -) 100 mg PO TID [facility] Last Admin: 03/27/17 06:57 Dose: 100 mg Gabapentin (Neurontin -) 600 mg PO TID [facility] Last Admin: 03/27/17 06:57 Dose: 600 mg Heparin Sodium (Porcine) (Heparin -) 5,000 unit SQ TID [facility] Last Admin: 03/27/17 06:58 Dose: 5,000 unit Insulin Aspart (Novolog Vial Sliding Scale -) 1 vial SQ ACHS [facility] PRN Reason: Protocol Last Admin: 03/27/17 12:06 Dose: 4 unit Insulin Detemir (Levemir Vial) 10 units SQ [facility] Last Admin: 03/26/17 23:14 Dose: 10 unit Lidocaine (Lidoderm Patch -) 2 patch TP DAILY [facility] Last Admin: 03/27/17 09:24 Dose: Not Given Lisinopril (Prinivil) 20 mg PO DAILY [facility] Last Admin: 03/27/17 09:24 Dose: 20 mg Miscellaneous (Lidoderm Patch Removal) 1 each MC DAILY@2200 [facility] Last Admin: 03/26/17 23:15 Dose: Not Given Ondansetron HCl (Zofran Odt -) 4 mg SL Q6H PRN PRN Reason: NAUSEA AND/OR VOMITING Last Admin: 03/26/17 08:06 Dose: 4 mg Tramadol HCl (Ultram -) 50 mg PO Q6H PRN PRN Reason: PAIN LEVEL 4 - 6 Last Admin: 03/27/17 09:23 Dose: 50 mg - Objective Vital Signs: Vital Signs Temperature 98.4 F 03/27/17 09:21 Pulse Rate 95 H 03/27/17 09:21 Respiratory Rate 20 03/27/17 09:21 Blood Pressure 147/76 03/27/17 09:21 O2 Sat by Pulse Oximetry (%) 96 03/26/17 21:00 Constitutional: Yes: No Distress, Calm Cardiovascular: Yes: Regular Rate and Rhythm Respiratory: Yes: Regular Gastrointestinal: Yes: Normal Bowel Sounds, Soft Genitourinary: Yes: WNL Extremities: Yes: Other (heel dry pressure blisters, no significant erythema) Edema: Yes (b/l feet) Neurological: Yes: Alert, Oriented Labs: CBC, BMP 03/27/17 06:00 03/27/17 06:00 INR, PTT INR 1.02 (0.82-1.09) 03/23/17 06:00 Problem List - Problems (1) Diabetic neuropathy with neurologic complication Code(s): E11.40 - TYPE 2 DIABETES MELLITUS WITH DIABETIC NEUROPATHY, UNSP; E11.49 - TYPE 2 DIABETES W OTH DIABETIC NEUROLOGICAL COMPLICATION (2) Femoral-popliteal artery atherosclerosis Code(s): I70.209 - UNSP ATHSCL [place] ARTERIES OF EXTREMITIES, UNSP EXTREMITY (3) PVD (peripheral vascular disease) Code(s): I73.9 - PERIPHERAL VASCULAR DISEASE, UNSPECIFIED (4) Type 2 diabetes mellitus Code(s): E11.9 - TYPE 2 DIABETES MELLITUS WITHOUT COMPLICATIONS Qualifiers: Diabetes mellitus complication status: with circulatory complication Diabetes mellitus complication detail: with peripheral angiopathy with gangrene Diabetes mellitus intermediate designer insulin use: without fpc use Qualified Code(s): E11.52 - Type 2 diabetes mellitus with diabetic peripheral angiopathy with gangrene Assessment/Plan B/L heel pressure blisters, b/l foot edema PVD s/p RLE angioplasty - s/p course of antibiotics, continue monitor off
[2017-03-27] MEDS ORDERED: FUROSEMIDE 40 MG/4 ML INJECTABLE VIAL IVPUSH ONE (13:30)
--- NOTE | 2017-03-27 15:40 | PN ---
Physical Exam: SUBJECTIVE: Patient seen and examined. She still c/o persistent feet numbness unable to stand or ambulate safely. lower ext edema better. OBJECTIVE: Vital Signs Period Temp Pulse Resp BP Sys/Rahman Pulse Ox Last 24 Hr 98 F-98.8 F 89-95 18-20 113-147/63-78 96 PE Neuro: alert, awake, cn 2-12intact Pulm: CTAB CV: s1 s2 rrr no mrg Abd: s nt nd +bs Ext: L heel eschar, le edema +1, b/l pedal edema + feet numbness Laboratory Results - last 24 hr 03/26/17 03/26/17 03/27/17 17:22 23:09 06:00 WBC 11.6 H RBC 3.32 L Hgb 9.2 L Hct 28.6 L MCV 86.2 MCH 27.7 MCHC 32.1 RDW 13.6 Plt Count 367 MPV 8.4 Neutrophils % 72.7 Lymphocytes % 13.6 Monocytes % 11.2 H Eosinophils % 1.7 Basophils % 0.8 Sodium Potassium Chloride Carbon Dioxide Anion Gap BUN Creatinine POC Glucometer 293 241 Random Glucose Calcium 03/27/17 03/27/17 03/27/17 06:00 07:00 12:00 WBC RBC Hgb Hct MCV MCH MCHC RDW Plt Count MPV Neutrophils % Lymphocytes % Monocytes % Eosinophils % Basophils % Sodium 137 Potassium 5.1 Chloride 101 Carbon Dioxide 29 Anion Gap 7 L BUN 24 H Creatinine 0.9 POC Glucometer 138 203 Random Glucose 144 H Calcium 7.3 L Active Medications Generic Name Dose Route Start Last Admin Trade Name Freq PRN Reason Stop Dose Admin Acetaminophen 650 mg 03/23/17 19:09 03/26/17 14:31 Tylenol - PO 650 mg Q6H PRN Administration PAIN Amlodipine Besylate 10 mg 03/24/17 10:00 03/27/17 09:23 Norvasc - PO 10 mg DAILY JESSICA Administration Aspirin 81 mg 03/24/17 10:00 03/27/17 09:24 Ecotrin - PO 81 mg DAILY JESSICA Administration Atorvastatin Calcium 80 mg 03/23/17 22:00 03/26/17 23:13 Lipitor - PO 80 mg HS JESSICA Administration Carvedilol 12.5 mg 03/23/17 22:00 03/27/17 09:24 Coreg - PO 12.5 mg BID JESSICA Administration Clopidogrel Bisulfate 75 mg 03/23/17 19:00 03/27/17 09:24 Plavix - PO 75 mg DAILY [facility] Administration Docusate Sodium 100 mg 03/25/17 14:45 03/27/17 14:32 Colace - PO 100 mg TID JESSICA Administration Gabapentin 600 mg 03/26/17 21:24 03/27/17 14:31 Neurontin - PO 600 mg TID [facility] Administration Heparin Sodium (Porcine) 5,000 unit 03/23/17 22:00 03/27/17 14:31 Heparin - SQ 5,000 unit TID JESSICA Administration Insulin Aspart 1 vial 03/26/17 22:00 03/27/17 12:06 Novolog Vial Sliding Scale - SQ 4 unit ACHS [facility] Administration Protocol Insulin Detemir 10 units 03/26/17 22:00 03/26/17 23:14 Levemir Vial SQ 10 unit HS [facility] Administration Lidocaine 2 patch 03/24/17 10:00 03/27/17 09:24 Lidoderm Patch - TP Not Given DAILY [facility] Lisinopril 20 mg 03/24/17 10:00 03/27/17 09:24 Prinivil PO 20 mg DAILY [facility] Administration Miscellaneous 1 each 03/23/17 22:00 03/26/17 23:15 Lidoderm Patch Removal MC Not Given DAILY@2200 [facility] Ondansetron HCl 4 mg 03/25/17 15:53 03/26/17 08:06 Zofran Odt - SL 4 mg Q6H PRN Administration NAUSEA AND/OR VOMITING Tramadol HCl 50 mg 03/26/17 15:15 03/27/17 09:23 Ultram - PO 50 mg Q6H PRN Administration PAIN LEVEL 4 - 6 Assessment: 51 year old female with pmhx of HTN, uncontrolled DM diabetes (on no meds) and depression worsening lower extremity pain and eval of b/l heels. Plan: 1. Sepsis secondary to diabetic wounds - Resolved, off abx 2. PVD with severe stenosis - s/p angioplasty/angiogram for right distal sfa, popliteal disease w/ stent placement 03/23 - ASA daily - Lipitor 80mg HD - Zetia 10mg daily 3. Diabetic neuropathy - Numbness unchanged - Increased Gabapentin 600 TID - Ultram PRN 4. b/l heel ulcers - Unimproved - Podiatry to re asses Trina 5. Diastolic LV dysfunction - x1 dose lasix 20mg IV - Coreg 12.5mg BID - ECHO revealed MAC, AV sclerosis, normal LV and RV size and function, trace MR 6. HTN - Norvasc 10mg daily - Lisinopril 20mg daily - Coreg 12.5mg BID 7. DM II, uncontrolled - Stop PO while inpt - restart Levemir 10units hs - ISS, BGM ACHS Visit type - Emergency Visit Emergency Visit: Yes ED Registration Date: 03/19/17 Care time: The patient presented to the Emergency Department on the above date and was hospitalized for further evaluation of their emergent condition. - New Patient This patient is new to me today: No - Critical Care Critical Care patient: No
--- NOTE | 2017-03-27 17:48 | PN ---
Progress Note, Physician History of Present Illness: Pt POD#4 s/p aortogram, rle angiogram, SFA dcb angioplasty with stent placement , popliteal artery dcb angioplasty, not walking much due to sensory neuropathy. - Current Medication List Current Medications: Active Medications Acetaminophen (Tylenol -) 650 mg PO Q6H PRN PRN Reason: PAIN Last Admin: 03/26/17 14:31 Dose: 650 mg Amlodipine Besylate (Norvasc -) 10 mg PO DAILY [facility] Last Admin: 03/27/17 09:23 Dose: 10 mg Aspirin (Ecotrin -) 81 mg PO DAILY [facility] Last Admin: 03/27/17 09:24 Dose: 81 mg Atorvastatin Calcium (Lipitor -) 80 mg PO HS [facility] Last Admin: 03/26/17 23:13 Dose: 80 mg Carvedilol (Coreg -) 12.5 mg PO BID [facility] Last Admin: 03/27/17 09:24 Dose: 12.5 mg Clopidogrel Bisulfate (Plavix -) 75 mg PO DAILY [facility] Last Admin: 03/27/17 09:24 Dose: 75 mg Docusate Sodium (Colace -) 100 mg PO TID [facility] Last Admin: 03/27/17 14:32 Dose: 100 mg Gabapentin (Neurontin -) 600 mg PO TID [facility] Last Admin: 03/27/17 14:31 Dose: 600 mg Heparin Sodium (Porcine) (Heparin -) 5,000 unit SQ TID [facility] Last Admin: 03/27/17 14:31 Dose: 5,000 unit Insulin Aspart (Novolog Vial Sliding Scale -) 1 vial SQ [facility] PRN Reason: Protocol Last Admin: 03/27/17 12:06 Dose: 4 unit Insulin Detemir (Levemir Vial) 10 units SQ [facility] Last Admin: 03/26/17 23:14 Dose: 10 unit Lidocaine (Lidoderm Patch -) 2 patch TP DAILY [facility] Last Admin: 03/27/17 09:24 Dose: Not Given Lisinopril (Prinivil) 20 mg PO DAILY [facility] Last Admin: 03/27/17 09:24 Dose: 20 mg Miscellaneous (Lidoderm Patch Removal) 1 each MC DAILY@2200 [facility] Last Admin: 03/26/17 23:15 Dose: Not Given Ondansetron HCl (Zofran Odt -) 4 mg SL Q6H PRN PRN Reason: NAUSEA AND/OR VOMITING Last Admin: 03/26/17 08:06 Dose: 4 mg Tramadol HCl (Ultram -) 50 mg PO Q6H PRN PRN Reason: PAIN LEVEL 4 - 6 Last Admin: 03/27/17 09:23 Dose: 50 mg - Objective Vital Signs: Vital Signs Temperature 98.3 F 03/27/17 14:01 Pulse Rate 94 H 03/27/17 14:01 Respiratory Rate 18 03/27/17 14:01 Blood Pressure 132/67 03/27/17 14:01 O2 Sat by Pulse Oximetry (%) 96 03/26/17 21:00 Constitutional: Yes: No Distress, Calm Neck: Yes: Supple, Tenderness Respiratory: Yes: Regular, Diminished Gastrointestinal: Yes: Normal Bowel Sounds, Soft Edema: Yes Edema: LLE: Trace, RLE: Trace Labs: CBC, BMP 03/27/17 06:00 03/27/17 06:00 INR, PTT INR 1.02 (0.82-1.09) 03/23/17 06:00 Problem List - Problems (1) Hyperlipidemia associated with type 2 diabetes mellitus Code(s): E11.69 - TYPE 2 DIABETES MELLITUS WITH OTHER SPECIFIED COMPLICATION; E78.5 - HYPERLIPIDEMIA, UNSPECIFIED (2) Type 2 diabetes mellitus Code(s): E11.9 - TYPE 2 DIABETES MELLITUS WITHOUT COMPLICATIONS Qualifiers: Diabetes mellitus complication status: with circulatory complication Diabetes mellitus complication detail: with peripheral angiopathy with gangrene Diabetes mellitus assistant terminal manager insulin use: without assistant terminal manager use Qualified Code(s): E11.52 - Type 2 diabetes mellitus with diabetic peripheral angiopathy with gangrene (3) Hypertensive urgency Code(s): I16.0 - HYPERTENSIVE URGENCY (4) Femoral-popliteal artery atherosclerosis Code(s): I70.209 - UNSP ATHSCL [place] ARTERIES OF EXTREMITIES, UNSP EXTREMITY (5) Poor compliance Code(s): Z91.19 - PATIENT'S NONCOMPLIANCE W OTH MEDICAL TREATMENT AND REGIMEN (6) PVD (peripheral vascular disease) Code(s): I73.9 - PERIPHERAL VASCULAR DISEASE, UNSPECIFIED (7) Foot ulcer Code(s): L97.509 - NON-PRESSURE CHRONIC ULCER OTH PRT UNSP FOOT W UNSP SEVERITY Qualifiers: Laterality: unspecified laterality Non-pressure ulcer stage: unspecified non-pressure ulcer stage Qualified Code(s): L97.509 - Non-pressure chronic ulcer of other part of unspecified foot with unspecified severity (8) Diabetic neuropathy with neurologic complication Code(s): E11.40 - TYPE 2 DIABETES MELLITUS WITH DIABETIC NEUROPATHY, UNSP; E11.49 - TYPE 2 DIABETES W OTH DIABETIC NEUROLOGICAL COMPLICATION (9) Diabetic gastroparesis associated with type 2 diabetes mellitus Code(s): E11.43 - TYPE 2 DIABETES W DIABETIC AUTONOMIC (POLY)NEUROPATHY; K31.84 - GASTROPARESIS Assessment/Plan Echocardiography revealed MAC, AV sclerosis, normal LV and RV size and function , trace MR 1. Symptomatic PAD with non-healing bilateral heal ulcers s/p aortogram, rle angiogram, SFA dcb angioplasty with stent placement, Popliteal artery dcb angioplasty 2. Bilateral lower extremity parasthesia, possible diabetic neuropathy 3. 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 Diastolic LV dysfunction with class 0-I NYHA classification LV failure, compensated/euvolemic 5. Heart murmur related to aortic valve sclerosis 6. HTN, BP with improved control 7. Poorly controlled Type 2 DM c/b neuropathy, gastroparesis and vasculopathy 8. Hypercholesterolemia 9. Anemia 10. Poor compliance with medical F/U PLAN: 1. Continue ASA 81 qd and Plavix 75 qd per vascular 2. Continue Norvasc 10 qd 3. Continue Prinivil 20 qd 4. Continue Coreg 12.5 bid and titrate dosage as tolerated 5. Continue Lipitor 80 qhs 6. Aggressive diabetes mellitus management, completed empiric abx course 7. Analgesia for neuropathic pain, f/u gastric emptying study
[2017-03-27] MEDS: INSULIN DETEMIR 100 UNITS/ML MDV SQ SCH (22:31)
[2017-03-27] MEDS: ATORVASTATIN CA 80 MG TABLET (FP) PO SCH (22:32)
[2017-03-27] MEDS: LIDOCAINE PATCH REMOVAL MC SCH (22:44)
[2017-03-28] MEDS: GABAPENTIN 300 MG CAPSULE (FP) PO SCH ×3 (06:05→21:42)
[2017-03-28] MEDS: DOCUSATE SODIUM 100 MG CAPSULE (FP) PO SCH ×3 (06:06→21:37)
[2017-03-28] MEDS: HEPARIN NA (PORCINE) 5,000 UNITS/ML 1ML VIAL SQ SCH ×3 (06:06→21:37)
[2017-03-28] MEDS: INSULIN SLIDING SCALE (NOVOLOG) 1 VIAL SQ SCH ×4 (06:06→21:42)
[2017-03-28] MEDS: traMADol HCL 50 MG TABLET PO PRN ×2 (06:17→21:43)
[2017-03-28] MEDS: CLOPIDOGREL BISULFATE 75 MG TABLET (FP) PO SCH (09:58)
[2017-03-28] MEDS: LISINOPRIL 20 MG TABLET (FP) PO SCH (09:58)
[2017-03-28] MEDS: LIDOCAINE 5% TOPICAL PATCH TP SCH (09:58)
[2017-03-28] MEDS: amLODIPine BESYLATE 10 MG TABLET (FP) PO SCH (09:58)
[2017-03-28] MEDS: CARVEDILOL 12.5 MG TABLET (FP) PO SCH ×2 (09:58→21:37)
[2017-03-28] MEDS: ASPIRIN COATED 81 MG TABLET.EC PO SCH (09:58)
[2017-03-28] MEDS: ONDANSETRON *ODT* 4 MG TABLET SL PRN (12:09)
--- NOTE | 2017-03-28 13:52 | PN ---
Physical Exam: SUBJECTIVE: Patient seen and examined. She is nauseated. She is not ambulating due to feet pain. OBJECTIVE: Vital Signs Period Temp Pulse Resp BP Sys/Rahman Pulse Ox Last 24 Hr 98.3 F-99.2 F 89-100 18-20 125-160/67-86 96-97 PE Neuro: alert, awake, cn 2-12intact Pulm: CTAB CV: s1 s2 rrr no mrg Abd: s nt nd +bs Ext: L heel eschar mildly open draining blood, R heel wound opening, pedal edema + 1, + feet numbness Laboratory Results - last 24 hr 03/27/17 03/27/17 03/28/17 17:09 22:25 06:04 POC Glucometer 210 231 161 03/28/17 11:23 POC Glucometer 203 Active Medications Generic Name Dose Route Start Last Admin Trade Name Freq PRN Reason Stop Dose Admin Acetaminophen 650 mg 03/23/17 19:09 03/26/17 14:31 Tylenol - PO 650 mg Q6H PRN Administration PAIN Amlodipine Besylate 10 mg 03/24/17 10:00 03/28/17 09:58 Norvasc - PO 10 mg DAILY JESSICA Administration Aspirin 81 mg 03/24/17 10:00 03/28/17 09:58 Ecotrin - PO 81 mg DAILY JESSICA Administration Atorvastatin Calcium 80 mg 03/23/17 22:00 03/27/17 22:32 Lipitor - PO 80 mg HS JESSICA Administration Carvedilol 12.5 mg 03/23/17 22:00 03/28/17 09:58 Coreg - PO 12.5 mg BID JESSICA Administration Clopidogrel Bisulfate 75 mg 03/23/17 19:00 03/28/17 09:58 Plavix - PO 75 mg DAILY JESSICA Administration Docusate Sodium 100 mg 03/25/17 14:45 03/28/17 06:06 Colace - PO 100 mg TID JESSICA Administration Gabapentin 600 mg 03/26/17 21:24 03/28/17 06:05 Neurontin - PO 600 mg TID JESSICA Administration Heparin Sodium (Porcine) 5,000 unit 03/23/17 22:00 03/28/17 06:06 Heparin - SQ Not Given TID JESSICA Insulin Aspart 1 vial 03/26/17 22:00 03/28/17 11:29 Novolog Vial Sliding Scale - SQ 4 unit ACHS JESSICA Administration Protocol Insulin Detemir 10 units 03/26/17 22:00 03/27/17 22:31 Levemir Vial SQ 10 unit HS [facility] Administration Lidocaine 2 patch 03/24/17 10:00 03/28/17 09:58 Lidoderm Patch - TP Not Given DAILY [facility] Lisinopril 20 mg 03/24/17 10:00 03/28/17 09:58 Prinivil PO 20 mg DAILY JESSICA Administration Miscellaneous 1 each 03/23/17 22:00 03/27/17 22:44 Lidoderm Patch Removal MC Not Given DAILY@2200 JESSICA Ondansetron HCl 4 mg 03/25/17 15:53 03/28/17 12:09 Zofran Odt - SL 4 mg Q6H PRN Administration NAUSEA AND/OR VOMITING Tramadol HCl 50 mg 03/26/17 15:15 03/28/17 06:17 Ultram - PO 50 mg Q6H PRN Administration PAIN LEVEL 4 - 6 Assessment: 51 year old female with pmhx of HTN, uncontrolled DM diabetes (on no meds) and depression worsening lower extremity pain and eval of b/l heels. Plan: 1. Sepsis secondary to diabetic wounds - Resolved, off abx 2. PVD with severe stenosis - s/p angioplasty/angiogram for right distal sfa, popliteal disease w/ stent placement 03/23 - ASA daily - Lipitor 80mg HD - Zetia 10mg daily 3. Diabetic neuropathy - Numbness unchanged - Increased Gabapentin 600 TID - Ultram PRN 4. b/l heel ulcers - Unimproved - Podiatry to reassess tomorrow, wounds are now open and draining ? debridement 5. Diastolic LV dysfunction - Coreg 12.5mg BID - ECHO revealed MAC, AV sclerosis, normal LV and RV size and function, trace MR 6. HTN - Norvasc 10mg daily - Lisinopril 20mg daily - Coreg 12.5mg BID 7. DM II, uncontrolled - Stop PO while inpt - Levemir 10units hs - ISS, BGM ACHS Visit type - Emergency Visit Emergency Visit: Yes ED Registration Date: 03/19/17 Care time: The patient presented to the Emergency Department on the above date and was hospitalized for further evaluation of their emergent condition. - New Patient This patient is new to me today: No - Critical Care Critical Care patient: No
--- NOTE | 2017-03-28 13:52 | PN ---
Progress Note, Physician History of Present Illness: c/o of pain had some bleeding from the rt heel - Current Medication List Current Medications: Active Medications Acetaminophen (Tylenol -) 650 mg PO Q6H PRN PRN Reason: PAIN Last Admin: 03/26/17 14:31 Dose: 650 mg Amlodipine Besylate (Norvasc -) 10 mg PO DAILY [facility] Last Admin: 03/28/17 09:58 Dose: 10 mg Aspirin (Ecotrin -) 81 mg PO DAILY [facility] Last Admin: 03/28/17 09:58 Dose: 81 mg Atorvastatin Calcium (Lipitor -) 80 mg PO HS [facility] Last Admin: 03/27/17 22:32 Dose: 80 mg Carvedilol (Coreg -) 12.5 mg PO BID [facility] Last Admin: 03/28/17 09:58 Dose: 12.5 mg Clopidogrel Bisulfate (Plavix -) 75 mg PO DAILY [facility] Last Admin: 03/28/17 09:58 Dose: 75 mg Docusate Sodium (Colace -) 100 mg PO TID [facility] Last Admin: 03/28/17 06:06 Dose: 100 mg Gabapentin (Neurontin -) 600 mg PO TID [facility] Last Admin: 03/28/17 06:05 Dose: 600 mg Heparin Sodium (Porcine) (Heparin -) 5,000 unit SQ TID [facility] Last Admin: 03/28/17 06:06 Dose: Not Given Insulin Aspart (Novolog Vial Sliding Scale -) 1 vial SQ [facility] PRN Reason: Protocol Last Admin: 03/28/17 11:29 Dose: 4 unit Insulin Detemir (Levemir Vial) 10 units SQ [facility] Last Admin: 03/27/17 22:31 Dose: 10 unit Lidocaine (Lidoderm Patch -) 2 patch TP DAILY [facility] Last Admin: 03/28/17 09:58 Dose: Not Given Lisinopril (Prinivil) 20 mg PO DAILY [facility] Last Admin: 03/28/17 09:58 Dose: 20 mg Miscellaneous (Lidoderm Patch Removal) 1 each MC DAILY@2200 [facility] Last Admin: 03/27/17 22:44 Dose: Not Given Ondansetron HCl (Zofran Odt -) 4 mg SL Q6H PRN PRN Reason: NAUSEA AND/OR VOMITING Last Admin: 03/28/17 12:09 Dose: 4 mg Tramadol HCl (Ultram -) 50 mg PO Q6H PRN PRN Reason: PAIN LEVEL 4 - 6 Last Admin: 03/28/17 06:17 Dose: 50 mg - Objective Vital Signs: Vital Signs Temperature 98.7 F 03/28/17 09:54 Pulse Rate 89 03/28/17 09:54 Respiratory Rate 20 03/28/17 09:54 Blood Pressure 125/74 03/28/17 09:54 O2 Sat by Pulse Oximetry (%) 97 03/28/17 09:00 Constitutional: Yes: No Distress, Calm Cardiovascular: Yes: Regular Rate and Rhythm Respiratory: Yes: Regular, CTA Bilaterally Gastrointestinal: Yes: Normal Bowel Sounds, Soft Musculoskeletal: Yes: Other Extremities: Yes: Other Wound/Incision: Yes: Dressing Dry and Intact Neurological: Yes: Alert, Oriented Psychiatric: Yes: Alert, Oriented Labs: CBC, BMP 03/27/17 06:00 03/27/17 06:00 INR, PTT INR 1.02 (0.82-1.09) 03/23/17 06:00 Assessment/Plan dm htn pvd sepsis plan await for podiatry team to make the decision rest continue current mgmt
[2017-03-28] MEDS: INSULIN DETEMIR 100 UNITS/ML MDV SQ SCH (21:39)
[2017-03-28] MEDS: LIDOCAINE PATCH REMOVAL MC SCH (21:42)
[2017-03-28] MEDS: ATORVASTATIN CA 80 MG TABLET (FP) PO SCH (21:42)
[2017-03-29] MEDS: HEPARIN NA (PORCINE) 5,000 UNITS/ML 1ML VIAL SQ SCH ×3 (06:26→22:12)
[2017-03-29] MEDS: GABAPENTIN 300 MG CAPSULE (FP) PO SCH ×4 (06:26→22:51)
[2017-03-29] MEDS: DOCUSATE SODIUM 100 MG CAPSULE (FP) PO SCH ×3 (06:26→22:12)
[2017-03-29] MEDS: INSULIN SLIDING SCALE (NOVOLOG) 1 VIAL SQ SCH ×5 (06:28→23:10)
[2017-03-29] MEDS: traMADol HCL 50 MG TABLET PO PRN (06:31)
--- NOTE | 2017-03-29 07:19 | PN ---
Physical Exam: SUBJECTIVE: Patient seen and examined at bedside. Complains of chronic lower extremity neuropathy. States cannot weight bear. OBJECTIVE: Vital Signs Period Temp Pulse Resp BP Sys/Rahman Pulse Ox Last 24 Hr 98.2 F-98.7 F 85-92 20-20 125-152/65-78 96-97 GENERAL: The patient is awake, alert, and fully oriented, in no acute distress. LUNGS: Breath sounds equal, clear to auscultation bilaterally, no wheezes, no crackles, no accessory muscle use. HEART: Regular rate and rhythm, S1, S2 ABDOMEN: Soft, nontender, nondistended, normoactive bowel sounds, no guarding, no rebound LOWER EXTREMITIES: bilateral heel diabetic ulcers, surgical incisions to both; no active bleeding, no erythema, no exudate NEUROLOGICAL: Cranial nerves II through XII grossly intact. Normal speech, gait not observed. Laboratory Results - last 24 hr 03/28/17 03/28/17 03/28/17 11:23 16:42 21:29 POC Glucometer 203 152 244 03/29/17 06:24 POC Glucometer 103 Active Medications Generic Name Dose Route Start Last Admin Trade Name Freq PRN Reason Stop Dose Admin Acetaminophen 650 mg 03/23/17 19:09 03/26/17 14:31 Tylenol - PO 650 mg Q6H PRN Administration PAIN Amlodipine Besylate 10 mg 03/24/17 10:00 03/28/17 09:58 Norvasc - PO 10 mg DAILY JESSICA Administration Aspirin 81 mg 03/24/17 10:00 03/28/17 09:58 Ecotrin - PO 81 mg DAILY JESSICA Administration Atorvastatin Calcium 80 mg 03/23/17 22:00 03/28/17 21:42 Lipitor - PO 80 mg HS JESSICA Administration Carvedilol 12.5 mg 03/23/17 22:00 03/28/17 21:37 Coreg - PO 12.5 mg BID JESSICA Administration Clopidogrel Bisulfate 75 mg 03/23/17 19:00 03/28/17 09:58 Plavix - PO 75 mg DAILY JESSICA Administration Docusate Sodium 100 mg 03/25/17 14:45 03/29/17 06:26 Colace - PO 100 mg TID JESSICA Administration Gabapentin 600 mg 03/26/17 21:24 03/29/17 06:26 Neurontin - PO 600 mg TID JESSICA Administration Heparin Sodium (Porcine) 5,000 unit 03/23/17 22:00 03/29/17 06:26 Heparin - SQ 5,000 unit TID JESSICA Administration Insulin Aspart 1 vial 03/26/17 22:00 03/29/17 06:28 Novolog Vial Sliding Scale - SQ Not Given ACHS [facility] Protocol Insulin Detemir 10 units 03/26/17 22:00 03/28/17 21:39 Levemir Vial SQ 10 unit HS [facility] Administration Lidocaine 2 patch 03/24/17 10:00 03/28/17 09:58 Lidoderm Patch - TP Not Given DAILY [facility] Lisinopril 20 mg 03/24/17 10:00 03/28/17 09:58 Prinivil PO 20 mg DAILY JESSICA Administration Miscellaneous 1 each 03/23/17 22:00 03/28/17 21:42 Lidoderm Patch Removal MC Not Given DAILY@2200 [facility] Ondansetron HCl 4 mg 03/25/17 15:53 03/28/17 12:09 Zofran Odt - SL 4 mg Q6H PRN Administration NAUSEA AND/OR VOMITING Tramadol HCl 50 mg 03/26/17 15:15 03/29/17 06:31 Ultram - PO 50 mg Q6H PRN Administration PAIN LEVEL 4 - 6 ASSESSMENT/PLAN 51 year old female with PMH significant for HTN, uncontrolled DM on no meds, and depression. Admitted for peripheral vascular disease. 1. Sepsis secondary to diabetic wounds - Resolved, off abx 2. PVD with severe stenosis - s/p angioplasty/angiogram for right distal sfa, popliteal disease w/ stent placement 03/23 - ASA daily - Lipitor 80mg HD - Zetia 10mg daily 3. Diabetic neuropathy - Numbness unchanged - Increased Gabapentin 600 TID - Ultram PRN 4. b/l heel ulcers - Unimproved - Podiatry to reassess tomorrow, wounds are open, no drainage; will likely need outpatient debridement 5. Diastolic LV dysfunction - Coreg 12.5mg BID - ECHO revealed MAC, AV sclerosis, normal LV and RV size and function, trace MR 6. HTN - Norvasc 10mg daily - Lisinopril 20mg daily - Coreg 12.5mg BID 7. DM II, uncontrolled - Stop PO while inpt - Levemir 10units hs - ISS, BGM ACHS Visit type - Emergency Visit Emergency Visit: Yes ED Registration Date: 03/19/17 Care time: The patient presented to the Emergency Department on the above date and was hospitalized for further evaluation of their emergent condition. - New Patient This patient is new to me today: Yes Date on this admission: 04/04/17 - Critical Care Critical Care patient: No
--- NOTE | 2017-03-29 09:33 | PN ---
Progress Note, Physician History of Present Illness: Clinically appears well. No events. Comfortable. Eating breakfast w/o nausea, or vomiting. - Current Medication List Current Medications: Active Medications Acetaminophen (Tylenol -) 650 mg PO Q6H PRN PRN Reason: PAIN Last Admin: 03/26/17 14:31 Dose: 650 mg Amlodipine Besylate (Norvasc -) 10 mg PO DAILY [facility] Last Admin: 03/28/17 09:58 Dose: 10 mg Aspirin (Ecotrin -) 81 mg PO DAILY [facility] Last Admin: 03/28/17 09:58 Dose: 81 mg Atorvastatin Calcium (Lipitor -) 80 mg PO [facility] Last Admin: 03/28/17 21:42 Dose: 80 mg Carvedilol (Coreg -) 12.5 mg PO BID [facility] Last Admin: 03/28/17 21:37 Dose: 12.5 mg Clopidogrel Bisulfate (Plavix -) 75 mg PO DAILY [facility] Last Admin: 03/28/17 09:58 Dose: 75 mg Docusate Sodium (Colace -) 100 mg PO TID [facility] Last Admin: 03/29/17 06:26 Dose: 100 mg Gabapentin (Neurontin -) 600 mg PO TID [facility] Last Admin: 03/29/17 06:26 Dose: 600 mg Heparin Sodium (Porcine) (Heparin -) 5,000 unit SQ TID [facility] Last Admin: 03/29/17 06:26 Dose: 5,000 unit Insulin Aspart (Novolog Vial Sliding Scale -) 1 vial SQ [facility] PRN Reason: Protocol Last Admin: 03/29/17 06:28 Dose: Not Given Insulin Detemir (Levemir Vial) 10 units SQ [facility] Last Admin: 03/28/17 21:39 Dose: 10 unit Lidocaine (Lidoderm Patch -) 2 patch TP DAILY [facility] Last Admin: 03/28/17 09:58 Dose: Not Given Lisinopril (Prinivil) 20 mg PO DAILY [facility] Last Admin: 03/28/17 09:58 Dose: 20 mg Miscellaneous (Lidoderm Patch Removal) 1 each MC DAILY@2200 [facility] Last Admin: 03/28/17 21:42 Dose: Not Given Ondansetron HCl (Zofran Odt -) 4 mg SL Q6H PRN PRN Reason: NAUSEA AND/OR VOMITING Last Admin: 03/28/17 12:09 Dose: 4 mg Tramadol HCl (Ultram -) 50 mg PO Q6H PRN PRN Reason: PAIN LEVEL 4 - 6 Last Admin: 03/29/17 06:31 Dose: 50 mg - Objective Vital Signs: Vital Signs Temperature 98.4 F 03/29/17 06:25 Pulse Rate 86 03/29/17 06:25 Respiratory Rate 20 03/29/17 06:25 Blood Pressure 126/72 03/29/17 06:25 O2 Sat by Pulse Oximetry (%) 96 03/28/17 21:00 Constitutional: Yes: No Distress, Calm Eyes: Yes: Conjunctiva Clear HENT: Yes: Atraumatic Neck: Yes: Supple Cardiovascular: Yes: Regular Rate and Rhythm Respiratory: Yes: Regular Gastrointestinal: Yes: Soft Neurological: Yes: Alert, Oriented Labs: CBC, BMP 03/27/17 06:00 03/27/17 06:00 INR, PTT INR 1.02 (0.82-1.09) 03/23/17 06:00 CBCD WBC 11.6 K/mm3 (4.0-10.0) H 03/27/17 06:00 RBC 3.32 M/mm3 (3.60-5.2) L 03/27/17 06:00 Hgb 9.2 GM/dL (10.7-15.3) L 03/27/17 06:00 Hct 28.6 % (32.4-45.2) L 03/27/17 06:00 MCV 86.2 fl (80-96) 03/27/17 06:00 MCHC 32.1 g/dl (32.0-36.0) 03/27/17 06:00 RDW 13.6 % (11.6-15.6) 03/27/17 06:00 Plt Count 367 K/MM3 (134-434) 03/27/17 06:00 MPV 8.4 fl (7.5-11.1) 03/27/17 06:00 CMP Sodium 137 mmol/L (136-145) 03/27/17 06:00 Potassium 5.1 mmol/L (3.5-5.1) 03/27/17 06:00 Chloride 101 mmol/L (98-107) 03/27/17 06:00 Carbon Dioxide 29 mmol/L (21-32) 03/27/17 06:00 Anion Gap 7 (8-16) L 03/27/17 06:00 BUN 24 mg/dL (7-18) H 03/27/17 06:00 Creatinine 0.9 mg/dL (0.55-1.02) 03/27/17 06:00 Creat Clearance w eGFR 58.93 (>60) 03/25/17 06:30 Calcium 7.3 mg/dL (8.5-10.1) L 03/27/17 06:00 Total Bilirubin 0.4 mg/dL (0.2-1.0) D 03/25/17 06:30 AST 21 U/L (15-37) 03/25/17 06:30 ALT 27 U/L (12-78) 03/25/17 06:30 Alkaline Phosphatase 75 U/L (45-117) 03/25/17 06:30 Total Protein 5.2 g/dl (6.4-8.2) L 03/25/17 06:30 Albumin 1.5 g/dl (3.4-5.0) L 03/25/17 06:30 Problem List - Problems (1) Nausea & vomiting Code(s): R11.2 - NAUSEA WITH VOMITING, UNSPECIFIED (2) Diabetic gastroparesis associated with type 2 diabetes mellitus Code(s): E11.43 - TYPE 2 DIABETES W DIABETIC AUTONOMIC (POLY)NEUROPATHY; K31.84 - GASTROPARESIS (3) Diabetic neuropathy with neurologic complication Code(s): E11.40 - TYPE 2 DIABETES MELLITUS WITH DIABETIC NEUROPATHY, UNSP; E11.49 - TYPE 2 DIABETES W OTH DIABETIC NEUROLOGICAL COMPLICATION (4) Femoral-popliteal artery atherosclerosis Code(s): I70.209 - UNSP ATHSCL [place] ARTERIES OF EXTREMITIES, UNSP EXTREMITY (5) Poor compliance Code(s): Z91.19 - PATIENT'S NONCOMPLIANCE W OT MEDICAL TREATMENT AND REGIMEN Assessment/Plan A 51 yof with uncontrolled DM and peripheral manifestations of the same with new onset of nausea, and vomiting, in part, brought up by suddenly standing or sitting up. The etiologies include new to the patient narcotics, antihypertensive medications; autonomic vascular disfunction; gastroparesis, gastritis, duodenitis, etc. As discussed with the patient; small frequent, low fat and fiber meals. Avoid, or minimize narcotics if possible (tranadol, fentanyl) Monitor BP, HR on new (to the pt) medications Miralax bid PPI po qd Recommend holding Reglan until gastric emptying study results are in will follow
[2017-03-29] MEDS: CLOPIDOGREL BISULFATE 75 MG TABLET (FP) PO SCH (12:10)
[2017-03-29] MEDS: CARVEDILOL 12.5 MG TABLET (FP) PO SCH ×3 (12:10→22:51)
[2017-03-29] MEDS: LISINOPRIL 20 MG TABLET (FP) PO SCH (12:10)
[2017-03-29] MEDS: amLODIPine BESYLATE 10 MG TABLET (FP) PO SCH (12:11)
[2017-03-29] MEDS: ASPIRIN COATED 81 MG TABLET.EC PO SCH (12:11)
[2017-03-29] MEDS: LIDOCAINE 5% TOPICAL PATCH TP SCH (12:12)
--- NOTE | 2017-03-29 12:48 | PN ---
Progress Note, Physician Chief Complaint: Events noted Complains of heel necrosis and pain History of Present Illness: Patient was seen and examined. Awake and alert. Chart was reviewed Denies chest pain, SOB or palpitations As outlined above - Current Medication List Current Medications: Active Medications Acetaminophen (Tylenol -) 650 mg PO Q6H PRN PRN Reason: PAIN Last Admin: 03/26/17 14:31 Dose: 650 mg Amlodipine Besylate (Norvasc -) 10 mg PO DAILY [facility] Last Admin: 03/29/17 12:11 Dose: 10 mg Aspirin (Ecotrin -) 81 mg PO DAILY [facility] Last Admin: 03/29/17 12:11 Dose: 81 mg Atorvastatin Calcium (Lipitor -) 80 mg PO [facility] Last Admin: 03/28/17 21:42 Dose: 80 mg Carvedilol (Coreg -) 12.5 mg PO BID [facility] Last Admin: 03/29/17 12:10 Dose: 12.5 mg Clopidogrel Bisulfate (Plavix -) 75 mg PO DAILY [facility] Last Admin: 03/29/17 12:10 Dose: 75 mg Docusate Sodium (Colace -) 100 mg PO TID [facility] Last Admin: 03/29/17 06:26 Dose: 100 mg Gabapentin (Neurontin -) 600 mg PO TID [facility] Last Admin: 03/29/17 06:26 Dose: 600 mg Heparin Sodium (Porcine) (Heparin -) 5,000 unit SQ TID [facility] Last Admin: 03/29/17 06:26 Dose: 5,000 unit Insulin Aspart (Novolog Vial Sliding Scale -) 1 vial SQ [facility] PRN Reason: Protocol Last Admin: 03/29/17 12:26 Dose: Not Given Insulin Detemir (Levemir Vial) 10 units SQ [facility] Last Admin: 03/28/17 21:39 Dose: 10 unit Lidocaine (Lidoderm Patch -) 2 patch TP DAILY [facility] Last Admin: 03/29/17 12:12 Dose: Not Given Lisinopril (Prinivil) 20 mg PO DAILY [facility] Last Admin: 03/29/17 12:10 Dose: 20 mg Miscellaneous (Lidoderm Patch Removal) 1 each MC DAILY@2200 [facility] Last Admin: 03/28/17 21:42 Dose: Not Given Ondansetron HCl (Zofran Odt -) 4 mg SL Q6H PRN PRN Reason: NAUSEA AND/OR VOMITING Last Admin: 03/28/17 12:09 Dose: 4 mg Tramadol HCl (Ultram -) 50 mg PO Q6H PRN PRN Reason: PAIN LEVEL 4 - 6 Last Admin: 03/29/17 06:31 Dose: 50 mg - Objective Vital Signs: Vital Signs Temperature 98.4 F 03/29/17 06:25 Pulse Rate 86 03/29/17 06:25 Respiratory Rate 20 03/29/17 06:25 Blood Pressure 126/72 03/29/17 06:25 O2 Sat by Pulse Oximetry (%) 96 03/28/17 21:00 Eyes: Yes: PERRL HENT: Yes: Atraumatic Neck: Yes: Supple Cardiovascular: Yes: Regular Rate and Rhythm, S1, S2 Respiratory: Yes: CTA Bilaterally Gastrointestinal: Yes: Normal Bowel Sounds, Soft. No: Tenderness Edema: No Additional Findings/Remarks: - Review of Systems Constitutional: Denies: Weakness. denies: Chills, Fever Cardiovascular: denies: Chest Pain, Palpitations, Shortness of Breath Respiratory: denies: Cough, Hemoptysis, Orthopnea, PND, SOB, SOB on Exertion Gastrointestinal: denies: Abdominal Pain, Constipation, Diarrhea, Melena, Nausea , Rectal Bleeding, Vomiting Genitourinary: denies: Dysuria, Hematuria Musculoskeletal: (+) heel pain Neurological: Denies: Weakness. denies: Dizziness, Headache, Seizure, Syncope Labs: CBC, BMP 03/27/17 06:00 03/27/17 06:00 Problem List - Problems (1) HTN (hypertension) Code(s): I10 - ESSENTIAL (PRIMARY) HYPERTENSION Qualifiers: Hypertension type: essential hypertension Qualified Code(s): I10 - Essential (primary) hypertension (2) Diabetic gastroparesis associated with type 2 diabetes mellitus Code(s): E11.43 - TYPE 2 DIABETES W DIABETIC AUTONOMIC (POLY)NEUROPATHY; K31.84 - GASTROPARESIS (3) Diabetic neuropathy with neurologic complication Code(s): E11.40 - TYPE 2 DIABETES MELLITUS WITH DIABETIC NEUROPATHY, UNSP; E11.49 - TYPE 2 DIABETES W OTH DIABETIC NEUROLOGICAL COMPLICATION (4) Femoral-popliteal artery atherosclerosis Code(s): I70.209 - UNSP ATHSCL [place] ARTERIES OF EXTREMITIES, UNSP EXTREMITY (5) Foot ulcer Code(s): L97.509 - NON-PRESSURE CHRONIC ULCER OTH PRT UNSP FOOT W UNSP SEVERITY Qualifiers: Laterality: unspecified laterality Non-pressure ulcer stage: unspecified non-pressure ulcer stage Qualified Code(s): L97.509 - Non-pressure chronic ulcer of other part of unspecified foot with unspecified severity (6) PVD (peripheral vascular disease) Code(s): I73.9 - PERIPHERAL VASCULAR DISEASE, UNSPECIFIED (7) Type 2 diabetes mellitus Code(s): E11.9 - TYPE 2 DIABETES MELLITUS WITHOUT COMPLICATIONS Qualifiers: Diabetes mellitus complication status: with circulatory complication Diabetes mellitus complication detail: with peripheral angiopathy with gangrene Diabetes mellitus chcf insulin use: without exterminator use Qualified Code(s): E11.52 - Type 2 diabetes mellitus with diabetic peripheral angiopathy with gangrene (8) Hypercholesterolemia Code(s): E78.00 - PURE HYPERCHOLESTEROLEMIA, UNSPECIFIED Assessment/Plan 1. Symptomatic PAD with non-healing bilateral heal ulcers s/p aortogram, right lower extremity angiogram, SFA angioplasty with stent placement, Popliteal artery angioplasty 2. Bilateral lower extremity parasthesia, possible diabetic neuropathy 3. 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 Diastolic LV dysfunction with class 0-I NYHA classification LV failure, compensated/euvolemic 5. Heart murmur related to aortic valve sclerosis 6. HTN 7. Poorly controlled Type 2 DM, diabetic neuropathy, gastroparesis and vasculopathy 8. Hypercholesterolemia 9. Anemia 10. Poor compliance with medical F/U PLAN: 1. Continue ASA 81 qd and Plavix 75 qd per vascular 2. Continue Norvasc 10 qd, Prinivil 20 qd and Coreg 12.5 bid - titrate dosage as tolerated 3. Continue Lipitor 80 qhs 4. Aggressive diabetes mellitus management 5. Analgesia for neuropathic pain Further plans are to follow Peewee Dockery MD
[2017-03-29] MEDS: ONDANSETRON *ODT* 4 MG TABLET SL PRN (13:09)
--- NOTE | 2017-03-29 13:55 | PN ---
Progress Note, Physician History of Present Illness: patient stable bilateral heel ulcer - Current Medication List Current Medications: Active Medications Acetaminophen (Tylenol -) 650 mg PO Q6H PRN PRN Reason: PAIN Last Admin: 03/26/17 14:31 Dose: 650 mg Amlodipine Besylate (Norvasc -) 10 mg PO DAILY [facility] Last Admin: 03/29/17 12:11 Dose: 10 mg Aspirin (Ecotrin -) 81 mg PO DAILY [facility] Last Admin: 03/29/17 12:11 Dose: 81 mg Atorvastatin Calcium (Lipitor -) 80 mg PO [facility] Last Admin: 03/28/17 21:42 Dose: 80 mg Carvedilol (Coreg -) 12.5 mg PO BID [facility] Last Admin: 03/29/17 12:10 Dose: 12.5 mg Clopidogrel Bisulfate (Plavix -) 75 mg PO DAILY [facility] Last Admin: 03/29/17 12:10 Dose: 75 mg Docusate Sodium (Colace -) 100 mg PO TID [facility] Last Admin: 03/29/17 06:26 Dose: 100 mg Gabapentin (Neurontin -) 600 mg PO TID [facility] Last Admin: 03/29/17 06:26 Dose: 600 mg Heparin Sodium (Porcine) (Heparin -) 5,000 unit SQ TID [facility] Last Admin: 03/29/17 06:26 Dose: 5,000 unit Insulin Aspart (Novolog Vial Sliding Scale -) 1 vial SQ [facility] PRN Reason: Protocol Last Admin: 03/29/17 12:26 Dose: Not Given Insulin Detemir (Levemir Vial) 10 units SQ [facility] Last Admin: 03/28/17 21:39 Dose: 10 unit Lidocaine (Lidoderm Patch -) 2 patch TP DAILY [facility] Last Admin: 03/29/17 12:12 Dose: Not Given Lisinopril (Prinivil) 20 mg PO DAILY [facility] Last Admin: 03/29/17 12:10 Dose: 20 mg Miscellaneous (Lidoderm Patch Removal) 1 each MC DAILY@2200 [facility] Last Admin: 03/28/17 21:42 Dose: Not Given Ondansetron HCl (Zofran Odt -) 4 mg SL Q6H PRN PRN Reason: NAUSEA AND/OR VOMITING Last Admin: 03/29/17 13:09 Dose: 4 mg Tramadol HCl (Ultram -) 50 mg PO Q6H PRN PRN Reason: PAIN LEVEL 4 - 6 Last Admin: 03/29/17 06:31 Dose: 50 mg - Objective Vital Signs: Vital Signs Temperature 98.4 F 03/29/17 06:25 Pulse Rate 86 03/29/17 06:25 Respiratory Rate 20 03/29/17 06:25 Blood Pressure 126/72 03/29/17 06:25 O2 Sat by Pulse Oximetry (%) 96 03/28/17 21:00 Constitutional: Yes: No Distress, Calm Cardiovascular: Yes: Regular Rate and Rhythm Respiratory: Yes: Regular, CTA Bilaterally Gastrointestinal: Yes: Normal Bowel Sounds, Soft Musculoskeletal: Yes: Other Extremities: Yes: Other (heel necrosis) Neurological: Yes: Alert, Oriented Psychiatric: Yes: Alert, Oriented Labs: CBC, BMP 03/27/17 06:00 03/27/17 06:00 INR, PTT INR 1.02 (0.82-1.09) 03/23/17 06:00 Assessment/Plan dm htn pvd sepsis plan continue wound care podiatry looked at the heels
--- NOTE | 2017-03-29 15:09 | DS ---
Physical Exam: SUBJECTIVE: Patient seen and examined OBJECTIVE: Vital Signs Period Temp Pulse Resp BP Sys/Rahman Pulse Ox Last 24 Hr 98.2 F-98.6 F 85-92 20-20 126-152/62-78 96 PHYSICAL EXAM GENERAL: The patient is awake, alert, and fully oriented, in no acute distress. HEAD: Normal with no signs of trauma. EYES: PERRL, extraocular movements intact, sclera anicteric, conjunctiva clear. ENT: Ears normal, nares patent, oropharynx clear without exudates, moist mucous membranes. NECK: Trachea midline, full range of motion, supple. LUNGS: Breath sounds equal, clear to auscultation bilaterally, no wheezes, no crackles, no accessory muscle use. HEART: Regular rate and rhythm, S1, S2 without murmur, rub or gallop. ABDOMEN: Soft, nontender, nondistended, normoactive bowel sounds, no guarding, no rebound, no hepatosplenomegaly, no masses. EXTREMITIES: 2+ pulses, warm, well-perfused, no edema. NEUROLOGICAL: Cranial nerves II through XII grossly intact. Normal speech, gait not observed. PSYCH: Normal mood, normal affect. SKIN: Warm, dry, normal turgor, no rashes or lesions noted. LABS Laboratory Results - last 24 hr 03/28/17 03/28/17 03/29/17 16:42 21:29 06:24 POC Glucometer 152 244 103 HOSPITAL COURSE: Date of Admission:03/19/17 Date of Discharge: 03/29/17 Discharge Summary Reason For Visit: HYPERGLYCEMIA Current Active Problems Cellulitis (Acute) Diabetic gastroparesis associated with type 2 diabetes mellitus (Acute) Diabetic neuropathy with neurologic complication (Acute) Femoral-popliteal artery atherosclerosis (Acute) Foot ulcer (Acute) Hyperglycemia (Acute) Hyperlipidemia associated with type 2 diabetes mellitus (Acute) Hypertensive urgency (Acute) Nausea & vomiting (Acute) PVD (peripheral vascular disease) (Acute) Poor compliance (Acute) Type 2 diabetes mellitus (Acute) Condition: Guarded - Instructions Diet, Activity, Other Instructions: Mrs Nice: You have a follow up appointment with Dr. Konstantin Reyes (new primary care doctor) on March 31 at 2:15pm. Please bring your insurance card to the appointment. Dr. Konstantin Reyes may need to adjust your Metformin and continue to monitor your blood sugars. Before you return to work, you have to first be cleared by this physician, Dr. Konstantin Reyes. I spoke to the HR department at the [facility] and they are requiring you to be cleared by a PCP before returning to work. Please note that you have been prescribed a glucometer so that you can monitor your blood sugars at home. A list of your new medications are listed on your discharge instructions and have been called into your pharmacy. A visiting nurse will conduct an assessment at your home. Please show them the discharge instructions that we provided for you. Wound Care to foot wounds: - Clean both feet with wound spray and wrap with sterile dressing. - Change wounds twice per day. - Monitor wounds for drainage or odor, and report this to your physician or report to the nearest ER. Please follow up with a predatory hunter (on your referral paperwork) so that the can further evaluate healing of your diabetic foot ulcers. Please call us with any questions that you may have: Please return to the ER with any new or worsening symptoms [facility] [phone] Referrals: Darryl Bhakta MD [Staff Physician] - 2 Weeks (diabetic foot wounds) Lashawn Saini MD [Staff Physician] - Jake Gonzales MD [Staff Physician] - (For possible gastric emptying study) Luisito Mccarty MD [Staff Physician] - 1 Week (For follow up on your hypertension) Disposition: HOME - Home Medications Comprehensive Discharge Medication List: Ambulatory Orders Alcohol Antiseptic Pads [Alcohol Swabs] 1 each ACHS #1 box 03/25/17 Amlodipine Besylate [Norvasc -] 10 mg PO DAILY #30 tablet 03/25/17 Aspirin Coated [Ecotrin -] 81 mg PO DAILY #30 tablet.ec 03/25/17 Atorvastatin Ca [Lipitor] 80 mg PO HS #30 tablet 03/25/17 Carvedilol [Coreg -] 12.5 mg PO BID #60 tablet 03/25/17 Clopidogrel Bisulfate [Plavix -] 75 mg PO DAILY #30 tablet 03/25/17 Docusate Sodium [Colace -] 100 mg PO TID capsule 03/25/17 Gabapentin [Neurontin -] 300 mg PO TID #90 capsule 03/25/17 Lancets [Lancets Ultra Thin] 1 each ACHS #1 box 03/25/17 Lisinopril [Prinivil] 20 mg PO DAILY #30 tablet 03/25/17 Metformin HCl [Glucophage -] 850 mg PO BID@0700,1630 #60 tablet 03/25/17 Miscellaneous Medical Supply [Glucometer Device] 1 each SQ ASDIR #1 kit [employer] [Glucometer Test Strips #100] 1 each SQ ASDIR #1 box 03/25/17 Ondansetron [Zofran Odt -] 4 mg SL Q6H PRN #30 tab.rapdis 03/25/17 Sitagliptin Phosphate [Januvia -] 25 mg PO DAILY@0700 #30 tab 03/25/17 - Discharge Referral Referred to [facility] Yes Physician Referral: Lashawn Saini MD ([facility])
--- NOTE | 2017-03-29 15:59 | PN ---
Progress Note (short form) - Note Progress Note: Podiatry F/U: Seen/evaluated at bedside, NAD. Pain persistent to B/L heels. Denies F/V/N/C/ SOB/CP. Afebrile, VSS. MARIE: R foot: plantar medial fluctuance with necrotic underlying tissue, malodorous serosanguinous drainage, no purulent drainage, no probing to bone, no soft tissue crepitus. Significant tenderness to palpation. Linear fissure with necrotic tissue. L foot: linear fissure with necrotic tissue, surrounding tissue fluctuant, serous drainage present, no purulent drainage no soft tissue crepitus, no ascending cellulitis. B/L foot MRI: cellulitis without abscess nor osteomyelitis Imp: 51 year old IDDM F with B/L Heel pressure ulcers 1. Incision and drainage of periwound subcutaneous abscess R heel. Malodorous serosanguinous drainage expressed subcutaneously, however no deep purulence. Wound culture obtained. 2. Patient refused L heel superficial incision and drainage today, states her heel is in a lot of pain. 3. Rx bactroban + DSD R heel 4. Heel offloading measures discussed at length 5. F/u at wound healing center upon discharge. Minnie Bhakta DPM
[2017-03-29] MEDS: LIDOCAINE PATCH REMOVAL MC SCH (22:12)
[2017-03-29] MEDS: INSULIN DETEMIR 100 UNITS/ML MDV SQ SCH ×2 (22:18→23:09)
[2017-03-29] MEDS: ATORVASTATIN CA 80 MG TABLET (FP) PO SCH ×2 (22:45→22:51)
[2017-03-29] MEDS: ACETAMINOPHEN 325 MG TABLET (FP) PO PRN (22:48)
[2017-03-30] MEDS: HEPARIN NA (PORCINE) 5,000 UNITS/ML 1ML VIAL SQ SCH ×2 (05:29→13:22)
[2017-03-30] MEDS: DOCUSATE SODIUM 100 MG CAPSULE (FP) PO SCH ×2 (06:29→13:22)
[2017-03-30] MEDS: GABAPENTIN 300 MG CAPSULE (FP) PO SCH ×2 (06:32→13:22)
[2017-03-30] MEDS: INSULIN SLIDING SCALE (NOVOLOG) 1 VIAL SQ SCH ×3 (06:32→16:47)
[2017-03-30] MEDS: ACETAMINOPHEN 325 MG TABLET (FP) PO PRN ×2 (06:34→14:28)
[2017-03-30] MEDS: amLODIPine BESYLATE 10 MG TABLET (FP) PO SCH (09:28)
[2017-03-30] MEDS: CLOPIDOGREL BISULFATE 75 MG TABLET (FP) PO SCH (09:28)
[2017-03-30] MEDS: CARVEDILOL 12.5 MG TABLET (FP) PO SCH (09:28)
[2017-03-30] MEDS: LISINOPRIL 20 MG TABLET (FP) PO SCH (09:28)
[2017-03-30] MEDS: ASPIRIN COATED 81 MG TABLET.EC PO SCH (09:29)
[2017-03-30] MEDS: LIDOCAINE 5% TOPICAL PATCH TP SCH (09:29)
--- NOTE | 2017-03-30 11:08 | PN ---
Physical Exam: SUBJECTIVE: Patient seen and examined at the bedside. States she feels better, denies any pain today. patient is in agreement to go to rehab after discussing the importance with her at length. Patient awaiting placement, her first choice is [facility] but will consider other rehab. OBJECTIVE: Cleared for discharge to rehab Ongoing teaching at facility on management of glucose, diabetes, diabetic wounds , nutrition We have assigned a PCP (Dr. Konstantin Reyes) to patient whom she should follow with on discharge Assured patient that rehab is best for her for a better recovery as she is still unable to ambulate without difficulty. Explained that she is a fall risk and going home without services is not the best for her. She is in agreement. Vital Signs Period Temp Pulse Resp BP Sys/Rahman Pulse Ox Last 24 Hr 98.3 F-98.6 F 83-92 20-20 122-147/59-75 94 GENERAL: The patient is awake, alert, and fully oriented, in no acute distress. HEAD: Normal with no signs of trauma. EYES: PERRL, extraocular movements intact, sclera anicteric, conjunctiva clear. No ptosis. ENT: Ears normal, nares patent, oropharynx clear without exudates, moist mucous membranes. NECK: Trachea midline, full range of motion, supple. LUNGS: Breath sounds equal, clear to auscultation bilaterally HEART: Regular rate and rhythm, S1, S2 without murmur, rub or gallop. ABDOMEN: Soft, nontender, nondistended, c/o of nausea EXTREMITIES: Lower ext wounds, seen by podiatry, wound dressing c/d/i NEUROLOGICAL: Normal speech, gait not observed. PSYCH: Normal mood, normal affect. 03/29/17 03/29/17 03/29/17 12:23 17:38 22:17 POC Glucometer 161 189 279 03/30/17 06:32 POC Glucometer 133 Active Medications Generic Name Dose Route Start Last Admin Trade Name Freq PRN Reason Stop Dose Admin Acetaminophen 650 mg 03/23/17 19:09 03/30/17 06:34 Tylenol - PO 650 mg Q6H PRN Administration PAIN Amlodipine Besylate 10 mg 03/24/17 10:00 03/30/17 09:28 Norvasc - PO 10 mg DAILY JESSICA Administration Aspirin 81 mg 03/24/17 10:00 03/30/17 09:29 Ecotrin - PO 81 mg DAILY [facility] Administration Atorvastatin Calcium 80 mg 03/23/17 22:00 03/29/17 22:51 Lipitor - PO 80 mg HS [facility] Administration Carvedilol 12.5 mg 03/23/17 22:00 03/30/17 09:28 Coreg - PO 12.5 mg BID [facility] Administration Clopidogrel Bisulfate 75 mg 03/23/17 19:00 03/30/17 09:28 Plavix - PO 75 mg DAILY [facility] Administration Docusate Sodium 100 mg 03/25/17 14:45 03/30/17 06:29 Colace - PO Not Given TID [facility] Gabapentin 600 mg 03/26/17 21:24 03/30/17 06:32 Neurontin - PO 600 mg TID [facility] Administration Heparin Sodium (Porcine) 5,000 unit 03/23/17 22:00 03/30/17 05:29 Heparin - SQ Not Given TID [facility] Insulin Aspart 1 vial 03/26/17 22:00 03/30/17 06:32 Novolog Vial Sliding Scale - SQ Not Given [facility] Protocol Insulin Detemir 10 units 03/26/17 22:00 03/29/17 23:09 Levemir Vial SQ 10 unit HS [facility] Administration Lidocaine 2 patch 03/24/17 10:00 03/30/17 09:29 Lidoderm Patch - TP Not Given DAILY [facility] Lisinopril 20 mg 03/24/17 10:00 03/30/17 09:28 Prinivil PO 20 mg DAILY [facility] Administration Miscellaneous 1 each 03/23/17 22:00 03/29/17 22:12 Lidoderm Patch Removal MC Not Given DAILY@2200 [facility] Ondansetron HCl 4 mg 03/25/17 15:53 03/29/17 13:09 Zofran Odt - SL 4 mg Q6H PRN Administration NAUSEA AND/OR VOMITING ASSESSMENT/PLAN: Patient is a 51 year old female with a significant past medical history of hypertension, diabetes (on no home medication) and depression. She presents to the Emergency Room with complaints of worsening lower extremity pain and evaluation of her wounds on her bilateral heels. Patient does not have a primary care physician and is on no medications for her diabetes and hypertension. She states that over the past few weeks she has been experiencing worsening pain associated to the wounds on both feet, but the right was worse than the left. She reports pain with ambulation and worsening drainage of her wounds. She states that she also notes a numb sensation in her right lower extremity from her knee to her foot. She noted that both wounds on her heels bilaterally opened up and began draining clear fluid. ID: Sepsis secondary to diabetic wounds, resolved Vascular: PVD with severe stenosis and flow gap in the distal right SFA/Severe stenosis in the right popliteal artery/PVD with severe stenosis in the distal left superficial femoral artery Vascular follow up outpatient, podiatry follow up as an outpatient. continue ASA, Plavix, Lipitor Bilateral leg wounds/diabetic ulcers, acute on chronic Patient is s/p Incision and drainage of periwound subcutaneous abscess R heel. Wound culture obtained. Apply Bactroban and sterile dressing to right heel daily Heel offloading measures, non weight bearing on right heel Follow up with Dr. Naylor at the wound clinic upon discharge from rehab. Cardiology: Hypertension, controlled Hypertensive Urgency, resolved On Lisinopril 20mg daily, coreq 12.5mg, BID Continue these medications, monitor BP outpatient with assigned PCP Diastolic LV dysfunction, chronic Coreg 12.5mg BID, cardiology follow up outpatient Endocrine: Diabetes Mellitus, controlled On Metformin 850mg BID, Januvia daily, on going teaching on glucometer Diabetic diet, outpatient followup Disposition: full code. discharge to Rehab likely today. PCP is Dr. Konstantin Reyes. Visit type - Emergency Visit Emergency Visit: Yes ED Registration Date: 03/19/17 Care time: The patient presented to the Emergency Department on the above date and was hospitalized for further evaluation of their emergent condition. - New Patient This patient is new to me today: No - Critical Care Critical Care patient: No - Discharge Referral Referred to [facility] Med P.C.: No
--- NOTE | 2017-03-30 14:15 | PN ---
Progress Note, Physician History of Present Illness: patient stable bilateral heel ulcer patients rt ulcer debrided left still present patient refused to drain the left side - Current Medication List Current Medications: Active Medications Acetaminophen (Tylenol -) 650 mg PO Q6H PRN PRN Reason: PAIN Last Admin: 03/30/17 06:34 Dose: 650 mg Amlodipine Besylate (Norvasc -) 10 mg PO DAILY [facility] Last Admin: 03/30/17 09:28 Dose: 10 mg Aspirin (Ecotrin -) 81 mg PO DAILY [facility] Last Admin: 03/30/17 09:29 Dose: 81 mg Atorvastatin Calcium (Lipitor -) 80 mg PO [facility] Last Admin: 03/29/17 22:51 Dose: 80 mg Carvedilol (Coreg -) 12.5 mg PO BID [facility] Last Admin: 03/30/17 09:28 Dose: 12.5 mg Clopidogrel Bisulfate (Plavix -) 75 mg PO DAILY [facility] Last Admin: 03/30/17 09:28 Dose: 75 mg Docusate Sodium (Colace -) 100 mg PO TID [facility] Last Admin: 03/30/17 13:22 Dose: 100 mg Gabapentin (Neurontin -) 600 mg PO TID [facility] Last Admin: 03/30/17 13:22 Dose: 600 mg Heparin Sodium (Porcine) (Heparin -) 5,000 unit SQ TID [facility] Last Admin: 03/30/17 13:22 Dose: 5,000 unit Insulin Aspart (Novolog Vial Sliding Scale -) 1 vial SQ [facility] PRN Reason: Protocol Last Admin: 03/30/17 11:35 Dose: Not Given Insulin Detemir (Levemir Vial) 10 units SQ [facility] Last Admin: 03/29/17 23:09 Dose: 10 unit Lidocaine (Lidoderm Patch -) 2 patch TP DAILY [facility] Last Admin: 03/30/17 09:29 Dose: Not Given Lisinopril (Prinivil) 20 mg PO DAILY [facility] Last Admin: 03/30/17 09:28 Dose: 20 mg Miscellaneous (Lidoderm Patch Removal) 1 each MC DAILY@2200 [facility] Last Admin: 03/29/17 22:12 Dose: Not Given Ondansetron HCl (Zofran Odt -) 4 mg SL Q6H PRN PRN Reason: NAUSEA AND/OR VOMITING Last Admin: 03/29/17 13:09 Dose: 4 mg - Objective Vital Signs: Vital Signs Temperature 98.3 F 03/30/17 09:02 Pulse Rate 84 03/30/17 09:02 Respiratory Rate 20 03/30/17 09:02 Blood Pressure 125/62 03/30/17 09:02 O2 Sat by Pulse Oximetry (%) 96 03/30/17 09:00 Constitutional: Yes: No Distress, Calm Cardiovascular: Yes: Regular Rate and Rhythm Respiratory: Yes: Regular, CTA Bilaterally Gastrointestinal: Yes: Normal Bowel Sounds, Soft Musculoskeletal: Yes: WNL Extremities: Yes: Other Wound/Incision: Yes: Dressing Dry and Intact Neurological: Yes: Alert, Oriented Labs: CBC, BMP 03/27/17 06:00 03/27/17 06:00 INR, PTT INR 1.02 (0.82-1.09) 03/23/17 06:00 Assessment/Plan dm htn pvd sepsis plan continue wound care await for cx reports consideration of the other heel if the patient agrees rest as per primary team
[2017-03-30 15:15] VITALS: BP 145/77; PULSE 86; TEMP 98.4
[2017-03-30] MEDS ORDERED: INSULIN (NOVOLOG) ASPART 100 UNITS/ML 10ML VIAL ONE (16:44)
== END 2017-03-30 18:24 | DRG 854 ==
LOC: JER 09:14 → JERBED 15:10 → J7W 18:36
PROVIDERS: ADMIT Internal Medicine; ATTEND Nurse Practitioner Family
PROC: 047M3ZZ Dilation of Right Popliteal Artery, Percutaneous Approach (ICD-10-PCS; 2017-03-23)
PROC: 3E033GC Introduction of Other Therapeutic Substance into Peripheral Vein, Percutaneous Approach (ICD-10-PCS; 2017-03-23)
PROC: B40DYZZ Plain Radiography of Aorta and Bilateral Lower Extremity Arteries using Other Contrast (ICD-10-PCS; 2017-03-23)
PROC: B40JYZZ Plain Radiography of Other Lower Arteries using Other Contrast (ICD-10-PCS; 2017-03-23)
PROC: 047K341 Dilation of Right Femoral Artery with Drug-eluting Intraluminal Device, using Drug-Coated Balloon, Percutaneous Approach (ICD-10-PCS; principal; 2017-03-23 17:00)
PROC: 0J9Q30Z Drainage of Right Foot Subcutaneous Tissue and Fascia with Drainage Device, Percutaneous Approach (ICD-10-PCS; 2017-03-29)
DX: A41.9 Sepsis, unspecified organism (principal); E87.1 Hypo-osmolality and hyponatremia; L97.429 Non-pressure chronic ulcer of left heel and midfoot with unspecified severity; L97.419 Non-pressure chronic ulcer of right heel and midfoot with unspecified severity; L03.116 Cellulitis of left lower limb; L03.115 Cellulitis of right lower limb; E11.621 Type 2 diabetes mellitus with foot ulcer; I70.203 Unspecified atherosclerosis of native arteries of extremities, bilateral legs; E11.51 Type 2 diabetes mellitus with diabetic peripheral angiopathy without gangrene; E11.65 Type 2 diabetes mellitus with hyperglycemia; I10 Essential (primary) hypertension; F32.9 Major depressive disorder, single episode, unspecified; Z91.14 Patient's other noncompliance with medication regimen; D25.9 Leiomyoma of uterus, unspecified; E83.42 Hypomagnesemia; E78.5 Hyperlipidemia, unspecified; D64.9 Anemia, unspecified; E11.42 Type 2 diabetes mellitus with diabetic polyneuropathy; I25.119 Atherosclerotic heart disease of native coronary artery with unspecified angina pectoris; I35.8 Other nonrheumatic aortic valve disorders; I16.0 Hypertensive urgency; E11.43 Type 2 diabetes mellitus with diabetic autonomic (poly)neuropathy; K31.84 Gastroparesis; Z79.84 Long term (current) use of oral hypoglycemic drugs; B96.20 Unspecified Escherichia coli [E. coli] as the cause of diseases classified elsewhere; B95.61 Methicillin susceptible Staphylococcus aureus infection as the cause of diseases classified elsewhere; I77.1 Stricture of artery
CPT/HCPCS: 36415; 73630-TC-LT; 73630-TC-RT; 73718-LT; 73718-TC; 75635-TC; 76000-TC; 80048; 80053; 80061; 80307; 81003; 81015; 82803; 82962; 83036; 83605; 83721; 83735; 84703; 85025; 85027; 85610; 85651; 86140; 86850; 86900; 86901; 87040; 87070; 87086; 87186; 87205; 93005; 93010; 93306-TC; 93880-TC; 93925-TC; 94760; 97116-GP; 97161-GP; 99284-25; J1644

== ENCOUNTER 2017-04-28 08:46 | Day surgery (SDC) | payer OTHER ==
[2017-04-27 14:57] VITALS: BMI 28.0
[2017-04-28] MEDS ORDERED: HEPARIN NA (PORCINE) 5,000 UNITS/ML 1ML VIAL ONE (12:47)
[2017-04-28] MEDS ORDERED: LIDOCAINE HCL/PF 2% SDV 5ML VIAL ONE (13:00)
[2017-04-28] MEDS ORDERED: MIDAZOLAM HCL 2 MG/2 ML SINGLE DOSE VIAL ONE (13:01)
[2017-04-28] MEDS ORDERED: PROPOFOL 20 ML ONE (13:01)
[2017-04-28] MEDS ORDERED: CLINDAMYCIN PHOSPHATE 600 MG/4 ML VIAL ONE (13:28)
[2017-04-28] MEDS ORDERED: CLINDAMYCIN 600 MG PREMIX BAG IVPB ONE (13:29)
[2017-04-28] MEDS ORDERED: LIDOCAINE HCL 1%, 10 MG/ML (20ML VIAL) PNB ONE (13:34)
[2017-04-28] MEDS ORDERED: IOHEXOL 300 MG/ML INFUS..BTL IV ONE (14:19)
[2017-04-28] MEDS ORDERED: ONDANSETRON 4 MG/2 ML VIAL IVPUSH PRN (14:32)
[2017-04-28] MEDS ORDERED: oxyCODONE HCL 5 MG TABLET PO PRN (14:32)
[2017-04-28] MEDS ORDERED: LACTATED RINGERS SOLUTION 1,000 ML IV SCH (14:45)
--- NOTE | 2017-04-28 14:46 | HP ---
Admitting History and Physical - Admission Chief Complaint: Left heel ulcer. Pt having rest pain in leg. Recent US showed SFA disease of 80-90 percent. Limitations to Obtaining History: No Limitations - Past Medical History Cardiovascular: Yes: HTN, Hyperlipdemia, Other (PVD) ...LMP: 02/23/17 ...LMP Comment: IRREGULAR Endocrine: Yes: Diabetes Mellitus - Past Surgical History Past Surgical History: Yes: (multiple c-sections in past) - Advance Directives Advance Directives: Yes: DNR - Smoking History Smoking history: Never smoked - Alcohol/Substance Use Hx Alcohol Use: No Home Medications - Allergies Allergies/Adverse Reactions: Allergies Allergy/AdvReac Type Severity Reaction Status Date / Time Penicillins Allergy Unknown "OUT OF IT" Verified 04/28/17 09:44 - Home Medications Home Medications: Ambulatory Orders Amlodipine Besylate [Norvasc -] 10 mg PO DAILY #30 tablet 03/25/17 Aspirin Coated [Ecotrin -] 81 mg PO DAILY #30 tablet.ec 03/25/17 Atorvastatin Ca [Lipitor] 80 mg PO HS #30 tablet 03/25/17 Carvedilol [Coreg -] 12.5 mg PO BID #60 tablet 03/25/17 Clopidogrel Bisulfate [Plavix -] 75 mg PO DAILY #30 tablet 03/25/17 Docusate Sodium [Colace -] 100 mg PO TID capsule 03/25/17 Lancets [Lancets Ultra Thin] 1 each ACHS #1 box 03/25/17 Lisinopril [Prinivil] 20 mg PO DAILY #30 tablet 03/25/17 Ondansetron [Zofran Odt -] 4 mg SL Q6H PRN #30 tab.rapdis 03/25/17 Sitagliptin Phosphate [Januvia -] 25 mg PO DAILY@0700 #30 tab 03/25/17 metFORMIN HCL [Glucophage -] 850 mg PO BID@0700,1630 #60 tablet 03/25/17 Gabapentin [Neurontin] 300 mg PO TID 04/27/17 Insulin Lispro [Humalog] 100 unit SQ UTDICT 04/27/17 Tramadol HCl 50 mg PO PRN PRN 04/27/17 Review of Systems - Review of Systems Constitutional: reports: No Symptoms Eyes: reports: No Symptoms HENT: reports: No Symptoms Neck: reports: No Symptoms Cardiovascular: reports: No Symptoms Respiratory: reports: No Symptoms Gastrointestinal: reports: No Symptoms Genitourinary: reports: No Symptoms Breasts: reports: No Symptoms Reported Musculoskeletal: reports: No Symptoms Integumentary: reports: No Symptoms Neurological: reports: No Symptoms Endocrine: reports: No Symptoms Hematology/Lymphatic: reports: No Symptoms Psychiatric: reports: No Symptoms Physical Examination Vital Signs: Vital Signs Temperature 97.6 F 04/28/17 09:46 Pulse Rate 83 04/28/17 09:46 Respiratory Rate 16 04/28/17 09:46 Blood Pressure 152/80 04/28/17 09:46 O2 Sat by Pulse Oximetry (%) 100 04/28/17 09:46 Constitutional: Yes: Well Nourished, No Distress, Calm Eyes: Yes: WNL, Conjunctiva Clear, EOM Intact HENT: Yes: WNL, Atraumatic, Normocephalic Neck: Yes: WNL, Supple, Trachea Midline Cardiovascular: Yes: WNL, Regular Rate and Rhythm Respiratory: Yes: WNL, Regular, CTA Bilaterally Gastrointestinal: Yes: WNL, Normal Bowel Sounds Musculoskeletal: Yes: WNL Extremities: Yes: WNL, Other (left heel ulcer with eschar. Right heel ulcer with eschar) Edema: No Integumentary: Yes: WNL Neurological: Yes: WNL, Alert, Oriented ...Motor Strength: WNL Psychiatric: Yes: WNL Problem List - Problems (1) Foot ulcer Code(s): L97.509 - NON-PRESSURE CHRONIC ULCER OTH PRT UNSP FOOT W UNSP SEVERITY Assessment/Plan left heel ulcer 1. For angiogram today
--- NOTE | 2017-04-28 14:47 | OP ---
Operative Note - Note: Operative Date: 04/28/17 Pre-Operative Diagnosis: left heel ulcer Operation: aortogram, LLE angiogram, SFA, Popliteal artery atherectomy with angioplasty Findings: SFA 90% stenosis Pop 90% stenosis Post-Operative Diagnosis: Same as Pre-op Anesthesia: Fractional Estimated Blood Loss (mls): 30 Operative Report Dictated: Yes
[2017-04-28] MEDS ORDERED: METOPROLOL TARTRATE 5 MG/5 ML VIAL ONE (15:09)
[2017-04-28] MEDS ORDERED: METOPROLOL TARTRATE 5 MG/5 ML VIAL IVPUSH ONE ×2 (15:10→15:45)
[2017-04-28] MEDS ORDERED: amLODIPine BESYLATE 10 MG TABLET (FP) PO ONE (15:45)
[2017-04-28 16:36] VITALS: TEMP 98
[2017-04-28 17:45] VITALS: BP 149/77; PULSE 84
--- NOTE | 2017-05-03 07:45 | OP ---
DATE OF OPERATION: 04/28/2017 PREOPERATIVE DIAGNOSIS: Left heel ulcer. POSTOPERATIVE DIAGNOSIS: Left heel ulcer. PROCEDURE: Aortogram, left lower extremity angiogram, superficial femoral artery/popliteal atherectomy with drug-coated balloon angioplasty. SURGEON: Chato Sharp DO ANESTHESIA: Fractional. BLOOD LOSS: 50 mL INDICATION FOR PROCEDURE: The patient is a 52-year-old female from the [facility] with a left heel ulcer. She was seen in the office and had a preoperative arterial study done, showing that she has severe disease in the distal SFA and popliteal artery. It was decided that she would need an angiogram. Patient came in through Ambulatory Surgery. The patient was consented for the procedure, understanding all risks, benefits, and alternatives, then taken to the operating room. DESCRIPTION OF PROCEDURE: Once in the operating room suite, laid on the operating table in supine manner, and the areas of the right and left groin were prepped and draped in a sterile surgical manner. We then injected 10 mL of lidocaine 1% over the right common femoral artery. We then took our micropuncture needle and punctured the right common femoral artery. Micropuncture wire was inserted, and a traditional 5-Romanian sheath was inserted. We then placed a 0.035 floppy guidewire up into the aorta, followed by an Omni Flush catheter. We then shot an aortogram via hand injection, showing that the aorta and the iliac arteries were without any disease. We then placed a 0.035 floppy guidewire up and over into the left common femoral artery and our Omni Flush catheter followed. We then shot an angiogram of the left lower extremity, showing that the common femoral artery, the profunda, and the proximal SFA were patent. The mid SFA was patent. The distal SFA and proximal popliteal artery had about an 80% to 90% stenosis going on for about 6 cm. The distal popliteal artery was patent. Patient had 1-vessel runoff into the foot, which was the AT. At this point, we placed a 0.035 stiff guidewire into the SFA, removed our Omni Flush catheter, placed a 6 x 45 crossover sheath. Next, 5000 units of IV heparin were administered to the patient. We then placed a 0.035 stiff guidewire down into the SFA, and we were able to cross our stenoses along with a Quick-Cross catheter and placed a wire into the anterior tibial artery. We then went ahead and exchanged for a ViperWire. We then used a I orbital atherectomy device, and we were able to perform orbital atherectomy of the distal SFA and proximal popliteal artery. We ran the device on low and medium. Thereafter, we shot an angiogram via hand injection, showing that the SFA and popliteal stenosis was a little better. We then went ahead and used a 5 x 8 drug-coated balloon, Lutonix balloon, and performed an angioplasty of the area. After the angioplasty, we shot our completion angiogram showing that the SFA and popliteal were completely patent. Now, there was good brisk flow into the anterior tibial artery into the foot. At this point, we brought our sheath up and over, and StarClose device was successfully deployed in the right common femoral artery. Pressure was held for 5 minutes. There was no more bleeding. Area was wet and dried, and Dermabond was placed. The patient tolerated the procedure with no complication. Patient transferred to PACU in stable condition. CHATO SHARP DO [id number]
== END 2017-04-28 17:45 | disposition home or self-care (01) ==
LOC: JASU-SURG 08:46
PROVIDERS: ATTEND Surgery Vascular Surgery
PROC: 047N3Z1 Dilation of Left Popliteal Artery using Drug-Coated Balloon, Percutaneous Approach (ICD-10-PCS; 2017-04-28)
PROC: B41DYZZ Fluoroscopy of Aorta and Bilateral Lower Extremity Arteries using Other Contrast (ICD-10-PCS; 2017-04-28)
PROC: 047L3Z1 Dilation of Left Femoral Artery using Drug-Coated Balloon, Percutaneous Approach (ICD-10-PCS; principal; 2017-04-28 12:00)
DX: I70.244 Atherosclerosis of native arteries of left leg with ulceration of heel and midfoot (principal); I10 Essential (primary) hypertension
CPT/HCPCS: 37224; C2623; 36415; 76000-TC-FY; 82962; 84703; 94760; J1644

== ENCOUNTER 2017-06-23 18:42 | Inpatient (IN) | payer OTHER ==
--- NOTE | 2017-06-23 18:47 | PDOC ---
Rapid Medical Evaluation Time Seen by Provider: 06/23/17 18:45 Medical Evaluation: Allergies Allergy/AdvReac Type Severity Reaction Status Date / Time Penicillins Allergy Unknown "OUT OF IT" Verified 04/28/17 09:44 06/23/17 18:45 I have performed a brief in-person evaluation of this patient. The patient presents with a chief complaint of: sent in from wound clinic, b/l foot pain Pertinent physical exam findings: crying from pain I have ordered the following: labs The patient will proceed to the ED for further evaluation.
[2017-06-23 19:27] LABS: BASO % 1.1 % (0-2.0); EOS % 1.9 % (0-4.5); HEMOGLOBIN 9.9 GM/dL (10.7-15.3); LYMPH % 16.1 % (8-40); MCHC 34.1 g/dl (32.0-36.0); MEAN CELL VOLUME 85.1 fl (80-96); MEAN PLT VOLUME 8.3 fl (7.5-11.1); MONO % 7.8 % (3.8-10.2); NEUT % 73.1 % (42.8-82.8); PLATELET COUNT 410 K/MM3 (134-434); RBC 3.41 M/mm3 (3.60-5.2); RDW 15.2 % (11.6-15.6); WHITE BLOOD COUNT 13.6 K/mm3 (4.0-10.0)
--- NOTE | 2017-06-23 20:14 | PDOC ---
History of Present Illness - General Chief Complaint: Pain Stated Complaint: FOOT PAIN Time Seen by Provider: 06/23/17 18:45 - History of Present Illness Initial Comments: 06/23/17 22:58 Keren is a 51-year-old female past medical history of hypertension, diabetes, depression with bilateral foot ulcers sent from wound clinic evaluation. Patient denies fever, chills, nausea vomiting diarrhea, abdominal pain, urinary symptoms. Patient reports severe pain to bilateral lower extremity with redness and warmth to the left heel ulcer. 06/23/17 22:59 PKMD: Dr. Pryor vascular surgeon Dr. porter Past History - Past Medical History Allergies/Adverse Reactions: Allergies Allergy/AdvReac Type Severity Reaction Status Date / Time Penicillins Allergy Unknown "OUT OF IT" Verified 06/23/17 18:51 Home Medications: Ambulatory Orders Amlodipine Besylate [Norvasc -] 10 mg PO DAILY #30 tablet 03/25/17 Aspirin Coated [Ecotrin -] 81 mg PO DAILY #30 tablet.ec 03/25/17 Atorvastatin Ca [Lipitor] 80 mg PO HS #30 tablet 03/25/17 Carvedilol [Coreg -] 12.5 mg PO BID #60 tablet 03/25/17 Clopidogrel Bisulfate [Plavix -] 75 mg PO DAILY #30 tablet 03/25/17 Docusate Sodium [Colace -] 100 mg PO TID capsule 03/25/17 Lancets [Lancets Ultra Thin] 1 each ACHS #1 box 03/25/17 Lisinopril [Prinivil] 20 mg PO DAILY #30 tablet 03/25/17 Ondansetron [Zofran Odt -] 4 mg SL Q6H PRN #30 tab.rapdis 03/25/17 Sitagliptin Phosphate [Januvia -] 25 mg PO DAILY@0700 #30 tab 03/25/17 Gabapentin [Neurontin] 300 mg PO TID 04/27/17 Tramadol HCl 50 mg PO PRN PRN 04/27/17 Collagenase Clostridium Hist. [Santyl] 1 applic TP DAILY #90 oint...g. 05/20/17 Glipizide 5 mg PO BID 05/20/17 COPD: No Diabetes: Yes (UNCONTROLLED) HTN: Yes - Immunization History Immunization Up to Date: Yes - Suicide/Smoking/Psychosocial Hx Smoking History: Never smoked Information on smoking cessation initiated: No Hx Alcohol Use: No Drug/Substance Use Hx: No Substance Use Type: None Review of Systems - Review of Systems Able to Perform ROS?: Yes Is the patient limited Urdu proficient: No Constitutional: No: Symptoms Reported, See HPI, Chills, Diaphoresis, Fever, Loss of Appetite, Malaise, Night Sweats, Weakness, Weight Stable, Unintentional Wgt. Loss, Unexplained wgt Loss, Other Integumentary: Yes: Erythema, Other (bilateral foot ulcer) *Physical Exam - Vital Signs Last Vital Signs Temp Pulse Resp BP Pulse Ox 98.8 F 125 H 19 150/84 100 06/23/17 18:47 06/23/17 18:47 06/23/17 18:47 06/23/17 18:47 06/23/17 18:47 - Physical Exam General Appearance: Yes: Appropriately Dressed Respiratory/Chest: positive: Lungs Clear, Normal Breath Sounds Gastrointestinal/Abdominal: positive: Normal Bowel Sounds, Soft Extremity: positive: Normal Capillary Refill, Normal Inspection, Normal Range of Motion Integumentary: positive: Normal Color, Dry, Warm Neurologic: positive: Fully Oriented, Alert, Normal Mood/Affect ED Treatment Course - LABORATORY CBC & Chemistry Diagram: 06/30/17 07:00 06/30/17 07:00 - ADDITIONAL ORDERS Additional order review: Laboratory Results 06/23/17 19:09 Sodium Cancelled Potassium Cancelled Chloride Cancelled Carbon Dioxide Cancelled Anion Gap Cancelled BUN Cancelled Creatinine Cancelled Creat Clearance w eGFR Cancelled Random Glucose Cancelled Calcium Cancelled Total Bilirubin Cancelled AST Cancelled ALT Cancelled Alkaline Phosphatase Cancelled C-Reactive Protein Cancelled Total Protein Cancelled Albumin Cancelled 06/23/17 19:09 RBC 3.41 L MCV 85.1 MCHC 34.1 RDW 15.2 D MPV 8.3 Neutrophils % 73.1 Lymphocytes % 16.1 Monocytes % 7.8 Eosinophils % 1.9 Basophils % 1.1 Medical Decision Making - Medical Decision Making Foot cellulitis and abscess P; cbc cmp blood culture IV antibiotics. patient admitted to inpatient hospitalist service. 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
[2017-06-23] MEDS ORDERED: AZTREONAM 1 GM in DEXTROSE 5%-WATER - 50 ML IVPB ONE ×2 (20:26→21:00)
[2017-06-23] MEDS ORDERED: VANCOMYCIN 1,000 MG in DEXTROSE 5%-WATER - 250 ML IVPB ONE (20:26)
[2017-06-23] MEDS ORDERED: SODIUM CHLORIDE 0.9% 500 ML INFUS.BAG IV ONE (20:28)
[2017-06-23] MEDS ORDERED: morphine SULFATE 4 MG/ML VIAL ONE (20:42)
[2017-06-23] MEDS: morphine SULFATE 4 MG/ML VIAL IVPUSH ONE (20:47)
[2017-06-23 21:00] LABS: INR 1.01 (0.82-1.09); PROTHROMBIN TIME (PATIENT) 11.4 SEC (9.98-11.88)
[2017-06-23] MEDS ORDERED: VANCOMYCIN 1 GRAM (PRE-DOCKED) 1,000 MG/250 ML BAG IVPB ONE (21:01)
[2017-06-23 21:03] LABS: ACTIVATED PTT 27.3 SECONDS (26.9-34.4)
[2017-06-23 21:21] LABS: ALBUMIN 2.8 g/dl (3.4-5.0); ALK PHOS 98 U/L (45-117); ANION GAP 8 (8-16); BILIRUBIN,TOTAL 0.3 mg/dL (0.2-1.0); BLOOD UREA NITROGEN 34 mg/dL (7-18); CALCIUM 8.9 mg/dL (8.5-10.1); CHLORIDE 103 mmol/L (98-107); CO2 24 mmol/L (21-32); CREATININE 1.2 mg/dL (0.55-1.02); GLUCOSE,RANDOM 146 mg/dL (74-106); POTASSIUM 3.9 mmol/L (3.5-5.1); SGOT/AST 11 U/L (15-37); SGPT/ALT 18 U/L (12-78); SODIUM 135 mmol/L (136-145); TOT PROT 7.5 g/dl (6.4-8.2)
[2017-06-24] MEDS ORDERED: SODIUM CHLORIDE 1,000 ML IV SCH ×2 (00:30→00:46)
--- NOTE | 2017-06-24 00:30 | HP ---
CHIEF COMPLAINT: Leg pain PCP: Dr Pryor HISTORY OF PRESENT ILLNESS: 51yo F with PMHx of uncontrolled DM2 with chronic bilateral DF ulcers who was sent from Dr Porter's wound clinic for further evaluation. Has increasing B/L heel pain around her eschars and foul smell, L worse than . Currently undergoing hyperbaric therapy w/ topical treatments. Denies fevers, chills, CP, SOB. Has chronic nausea and vomiting for which she takes no meds. She was recently admitted in mar 2017 for sepsis 2/2 BLLE wound infection (R worse than L). At that time, MRI showed no osteo b/l, wound cultures on RLE grew polymicrobial organisms, successfully treated w/ Ertapenem for 1 week. During that admission, CTA showed extensive PVD in both legs. She underwent R sided angio and SFA stent placement by Dr Porter and I&D of R heel subcutaneous abscess by podiatry. For her vomiting, Dr Gonzales planned to undergo gastric emptying study, ?unsure if performed since results are not available in EMR. She was d/cd to SNF for short term rehab. In the ER, the patient was tachycardic but otherwise stable. Labs revealed leukocytosis. She was given a 500cc bolus of IVNS, Vanc 1g, Levaquin 750, and Azactam 1g due to PCN allergy. Duplex was negative. She was actively wretching during the interview. Recent Travel: Denies PAST MEDICAL HISTORY: Hypertension, Diabetes, Depression with Bilateral foot ulcers PAST SURGICAL HISTORY: R sided angio and SFA stent Social History: Smoking: Denies Alcohol: Denies Drugs: denies Allergies Penicillins Allergy (Unknown, Verified 06/23/17 18:51) "OUT OF IT" HOME MEDICATIONS: Home Medications (NOT UPDATED) Medication Instructions Recorded Amlodipine Besylate [Norvasc -] 10 mg PO DAILY #30 tablet 03/25/17 Aspirin Coated [Ecotrin -] 81 mg PO DAILY #30 tablet.ec 03/25/17 Atorvastatin Ca [Lipitor] 80 mg PO HS #30 tablet 03/25/17 Carvedilol [Coreg -] 12.5 mg PO BID #60 tablet 03/25/17 Clopidogrel Bisulfate [Plavix -] 75 mg PO DAILY #30 tablet 03/25/17 Docusate Sodium [Colace -] 100 mg PO TID capsule 03/25/17 Lancets [Lancets Ultra Thin] 1 each ACHS #1 box 03/25/17 Lisinopril [Prinivil] 20 mg PO DAILY #30 tablet 03/25/17 Ondansetron [Zofran Odt -] 4 mg SL Q6H PRN #30 tab.rapdis 03/25/17 Sitagliptin Phosphate [Januvia -] 25 mg PO DAILY@0700 #30 tab 03/25/17 metFORMIN HCL [Glucophage -] 850 mg PO BID@0700,1630 #60 tablet 03/25/17 Gabapentin [Neurontin] 300 mg PO TID 04/27/17 Insulin Lispro [Humalog] 100 unit SQ UTDICT 04/27/17 Tramadol HCl 50 mg PO PRN PRN 04/27/17 Collagenase Clostridium Hist. 1 applic TP DAILY #90 oint...g. 05/20/17 [Santyl] Glipizide 5 mg PO BID 05/20/17 REVIEW OF SYSTEMS CONSTITUTIONAL: Absent: fever, chills, diaphoresis, generalized weakness, malaise, loss of appetite, weight change HEENT: Absent: rhinorrhea, nasal congestion, throat pain, throat swelling, difficulty swallowing, mouth swelling, ear pain, eye pain, visual changes CARDIOVASCULAR: Absent: chest pain, syncope, palpitations, irregular heart rate , lightheadedness, peripheral edema RESPIRATORY: Absent: cough, shortness of breath, dyspnea with exertion, orthopnea, wheezing, stridor, hemoptysis GASTROINTESTINAL: +nausea, vomitting Absent: abdominal pain, abdominal distension, diarrhea, constipation, melena, hematochezia GENITOURINARY: Absent: dysuria, frequency, urgency, hesitancy, hematuria, flank pain, genital pain MUSCULOSKELETAL: Absent: myalgia, arthralgia, joint swelling, back pain, neck pain SKIN: +ulcerations Absent: rash, itching, pallor HEMATOLOGIC/IMMUNOLOGIC: Absent: easy bleeding, easy bruising, lymphadenopathy, frequent infections ENDOCRINE:Absent: unexplained weight gain, unexplained weight loss, heat intolerance, cold intolerance NEUROLOGIC: Absent: headache, focal weakness or paresthesias, dizziness, unsteady gait, seizure, mental status changes, bladder or bowel incontinence PSYCHIATRIC: Absent: anxiety, depression, suicidal or homicidal ideation, hallucinations. PHYSICAL EXAMINATION Vital Signs Period Temp Pulse Resp BP Sys/Rahman Pulse Ox Last 24 Hr 98.8 F 97-125 18-19 132-150/70-84 100-100 GEN: AAOx3, NAD, Lying comfortably, flat affect, actively wretching w/ emesis bag HEENT: PERRLA, EOMi, no JVD CV: S1, S2, tachycardic rate, reg rhythm LUNG: CTABL ABD: Soft, NT, ND, normoactive BS MSK: R foot - +weak distal pulses, Necrotic eschar on heel, erythema along lateral heel, no obvious drainage but has boggy texture, no crepitus, tnederness to palpation, no ascending cellulitis L foot - +weak distal pulses Necrotic eschar on medial heel, no obvious drainage, tough, no crepitus, no ascending cellulitis ASSESSMENT/PLAN: 51yo F with PMHx of uncontrolled DM2 with worsening bilateral diabetic foot ulcer, sent from dr porter's clinic. # Sepsis 2/2 DF Ulcers -- Pt states L foot ulcer is worsening. It is likely re-infected. Will cover w/ similar regimen to last admission Ertapenam 1g daily. Will get stat lactic acid. F/u wound and Bcx. IVF. ID consult. ESR/CRP increased from prior admission. Will get repeat b/l MRI to r/o osteo. For pain, she takes Tramadol at home, but will treat w/ IV morphine now since she is unable to tolerate PO. # Peripheral Vascular Dz -- S/p R SFA stent last admission. Weak pulses. Arterial dopplers do not give new information, patient has known PVD. Will hold off on CTA for now, may have had recent imaging at wound clinic. Consult Dr Porter. Continue asa, plavix # Vomiting -- Chronic. Possible diabetic gastroparesis. Was seen by Dr Gonzales last admission , with gastric emptying study ordered, ?performed. Results not in EMR. Will treat w/ Zofran for now. At the time he recommended small frequent, low fat and fiber meals. Also recommended holding Reglan until study results were in. Will consult again. # Elevated Cr -- Above baseline. Likely from sepsis or dehydration from vomiting. Will hydrate. Hold ACEi for now. If improves, can restart ACEi. # HTN -- Controlled. Continue Norvasc and Coreg. Hold Lisinopril as stated above. Normal echo in Mar # Uncontrolled DM2 -- A1C 13% last admission. Will repeat in AM. Hold Glipizide and januvia. Not on home insulin. Continue BGMs and ISS ACHS # Diabetic Neuropathy -- Continue Gabapentin # FEN/Ppx -- IVF 125 cc/hr. Diabetic Diet. HSQ TID # Dispo -- Admit to med/surg Home meds were reconciled with the patient. Case d/w Dr Hodge & Dr Howard Izquierdo MD - pGY1 [employer] Visit type - Emergency Visit Emergency Visit: Yes ED Registration Date: 06/23/17 Care time: The patient presented to the Emergency Department on the above date and was hospitalized for further evaluation of their emergent condition. - New Patient This patient is new to me today: Yes Date on this admission: 06/24/17 - Critical Care Critical Care patient: No Hospitalist Screening - Colonoscopy Questionnaire Colonoscopy Questionnaire: Colonoscopy Questionnaire - Patient: 50 - 75 years old and never had a screening colonoscopy: Unknown History of colon or rectal polyps, or CA: Unknown History of IBD, Crohn's disease or UC: Unknown History of abdominal radiation therapy as a child: Unknown - Relative: 1 with colon or rectal CA, or polyps at age 60 or younger: Unknown Colon or rectal CA diagnosed at age 45 or younger: Unknown Multiple relatives with colon or rectal CA: Unknown - Outcome: Screening Result: Negative Screen
[2017-06-24] MEDS ORDERED: ONDANSETRON 4 MG/2 ML VIAL IVPUSH PRN (00:41)
[2017-06-24] MEDS ORDERED: DOCUSATE SODIUM 100 MG CAPSULE (FP) PO PRN (00:58)
--- NOTE | 2017-06-24 02:35 | PN ---
Teaching Attending Note Name of Resident: Doris Izquierdo ATTENDING PHYSICIAN STATEMENT I saw and evaluated the patient. I reviewed the resident's note and discussed the case with the resident. I agree with the resident's findings and plan as documented. SUBJECTIVE: 51F pmh DM2, chronic LE ulcers sent in from wound clinic for further evaluation venita to drainage and increased redness around left heel ulcer. She has known PAD with stents in both legs, and is currently getting hyperbaric treatments. Has had infected wound in March of the Right heel, at that time MRI negative for OM OBJECTIVE: NAD AAOx3 Left heel ulcer with black eschar, unstageable. Mild surrounding erythema on lateral ankle with tenderness. Rt heel ulcer with black eschar, non tender WBC 13.6 Albumin 2.8 ESR 109 Arterial dopplers: PAD bilateral LE Venous doppler: no DVT ASSESSMENT AND PLAN: Sepsis likely from infected left heel ulcer with mild surrounding cellulitis start Vancomycin and ertapenem ID, Vascular surgery eval Vomiting, possibly DM gastroparesis, Seen by GI in [facility], GI eval, small freq low fat low fiber meals DM2 - check A1c and start sliding scale insulin
[2017-06-24 03:22] VITALS: BMI 24.4
[2017-06-24] MEDS: HEPARIN NA (PORCINE) 5,000 UNITS/ML 1ML VIAL SQ SCH ×3 (06:07→21:13)
[2017-06-24] MEDS: GABAPENTIN 300 MG CAPSULE (FP) PO SCH ×3 (06:07→21:13)
[2017-06-24] MEDS: INSULIN SLIDING SCALE (NOVOLOG) 1 VIAL SQ SCH ×4 (06:11→21:17)
[2017-06-24 08:01] LABS: BASO % 0.8 % (0-2.0); EOS % 0.5 % (0-4.5); HEMATOCRIT 26.4 % (32.4-45.2); LYMPH % 9.5 % (8-40); MCH 29.2 pg (25.7-33.7); MCHC 34.2 g/dl (32.0-36.0); MEAN CELL VOLUME 85.4 fl (80-96); MEAN PLT VOLUME 8.4 fl (7.5-11.1); MONO % 4.9 % (3.8-10.2); NEUT % 84.3 % (42.8-82.8); PLATELET COUNT 390 K/MM3 (134-434); RBC 3.08 M/mm3 (3.60-5.2); RDW 15.7 % (11.6-15.6); WHITE BLOOD COUNT 11.9 K/mm3 (4.0-10.0)
[2017-06-24 08:18] LABS: ALBUMIN 2.4 g/dl (3.4-5.0); ANION GAP 9 (8-16); BLOOD UREA NITROGEN 29 mg/dL (7-18); CALCIUM 8.9 mg/dL (8.5-10.1); CHLORIDE 104 mmol/L (98-107); CO2 25 mmol/L (21-32); CREATININE 1.1 mg/dL (0.55-1.02); GLUCOSE,RANDOM 245 mg/dL (74-106); PHOSPHOROUS 4.4 mg/dL (2.5-4.9); POTASSIUM 4.4 mmol/L (3.5-5.1); SGOT/AST 10 U/L (15-37); SGPT/ALT 13 U/L (12-78); SODIUM 138 mmol/L (136-145)
[2017-06-24 08:26] LABS: ALK PHOS 85 U/L (45-117); BILIRUBIN,TOTAL 0.5 mg/dL (0.2-1.0); TOT PROT 6.8 g/dl (6.4-8.2)
[2017-06-24] MEDS: CARVEDILOL 12.5 MG TABLET (FP) PO SCH ×2 (09:38→21:13)
[2017-06-24] MEDS: ASPIRIN COATED 81 MG TABLET.EC PO SCH (09:38)
[2017-06-24] MEDS: CLOPIDOGREL BISULFATE 75 MG TABLET (FP) PO SCH (09:38)
[2017-06-24] MEDS: amLODIPine BESYLATE 10 MG TABLET (FP) PO SCH (09:38)
--- NOTE | 2017-06-24 09:53 | EKG ---
Test Reason : Blood Pressure : / mmHG Vent. Rate : 099 BPM Atrial Rate : 099 BPM P-R Int : 148 ms QRS Dur : 092 ms QT Int : 362 ms P-R-T Axes : 046 053 081 degrees QTc Int : 464 ms NORMAL SINUS RHYTHM ST ELEVATION CONSIDER INFERIOR INJURY OR ACUTE INFARCT CLINICAL CORRELATION IS RECOMMENDED Confirmed by JAOSN GEORGES MD ([id number]) on 06/24/2017 9:52:59 AM Referred By: Confirmed By:JASON GEORGES MD
[2017-06-24] MEDS ORDERED: ERTAPENEM SODIUM 1 GM/50 ML PRE-DOCKED IVPB SCH (10:00)
[2017-06-24] MEDS ORDERED: LISINOPRIL 20 MG TABLET (FP) PO SCH (10:00)
[2017-06-24] MEDS ORDERED: ERTAPENEM SODIUM 1 GM in SODIUM CHLORIDE 100 ML IVPB SCH (10:00)
--- NOTE | 2017-06-24 11:21 | CON.GI ---
Consult - History of Present Illness History of Present Illness: Chart reviewed. Events noted. A 51 yof with symptomatic periferal vasular disease, uncontrolled DM, s/p peripheral vascular intervention continues to have intermittent nausea, vomiting and which are frequently related to postprandial period. The patient was evaluated for the same in March of this year. She was suspected to have diabetic gastroparesis. Gastric empty study was planned however not done. There is no dysphagia, odynophagia, melena, hematochezia, changes in stool caliper, jauindice. No history of gastrointestinal, or pancreaticobiliary issues. No history of chronic NSAIDs, Or alcohol intake. The patient was not done diabetic medications prior to March of this year. On this admission noted to have normal electrolytes, liver chemistries, and mild renal insufficiency. - History Source History Provided By: Patient, Medical Record - Past Medical History Cardio/Vascular: Yes: HTN, Hyperlipdemia, Other (PVD) ...LMP: 02/23/17 Endocrine: Yes: Diabetes Mellitus - Past Surgical History Past Surgical History: Yes: (multiple c-sections in past) - Alcohol/Substance Use Hx Alcohol Use: No - Smoking History Smoking history: Never smoked Home Medications - Allergies Allergies/Adverse Reactions: Allergies Allergy/AdvReac Type Severity Reaction Status Date / Time Penicillins Allergy Unknown "OUT OF IT" Verified 06/23/17 18:51 - Home Medications Home Medications: Ambulatory Orders Amlodipine Besylate [Norvasc -] 10 mg PO DAILY #30 tablet 03/25/17 Aspirin Coated [Ecotrin -] 81 mg PO DAILY #30 tablet.ec 03/25/17 Atorvastatin Ca [Lipitor] 80 mg PO HS #30 tablet 03/25/17 Carvedilol [Coreg -] 12.5 mg PO BID #60 tablet 03/25/17 Clopidogrel Bisulfate [Plavix -] 75 mg PO DAILY #30 tablet 03/25/17 Docusate Sodium [Colace -] 100 mg PO TID capsule 03/25/17 Lancets [Lancets Ultra Thin] 1 each ACHS #1 box 03/25/17 Lisinopril [Prinivil] 20 mg PO DAILY #30 tablet 03/25/17 Ondansetron [Zofran Odt -] 4 mg SL Q6H PRN #30 tab.rapdis 03/25/17 Sitagliptin Phosphate [Januvia -] 25 mg PO DAILY@0700 #30 tab 03/25/17 Gabapentin [Neurontin] 300 mg PO TID 04/27/17 Tramadol HCl 50 mg PO PRN PRN 04/27/17 Collagenase Clostridium Hist. [Santyl] 1 applic TP DAILY #90 oint...g. 05/20/17 Glipizide 5 mg PO BID 05/20/17 Family Disease History - Family Disease History Family History: Unremarkable (noncontributory) Review of Systems Findings/Remarks: as per H&P and HPI Physical Exam-GI Vital Signs: Vital Signs Temperature 98.1 F 06/24/17 06:58 Pulse Rate 91 H 06/24/17 06:58 Respiratory Rate 18 06/24/17 06:58 Blood Pressure 180/84 06/24/17 06:58 O2 Sat by Pulse Oximetry (%) 100 06/24/17 02:54 Constitutional: Yes: No Distress, Calm Eyes: No: Sclera Icterus HENT: Yes: Atraumatic Neck: Yes: Supple Respiratory: Yes: Regular Gastrointestinal Inspection: No: Ascites, Distention ...Auscultate: Yes: Normoactive Bowel Sounds ...Palpate: Yes: Soft. No: Firm/Rigid, Guarding, Mass, Tenderness, Tenderness, Epigastium, Tenderness, Rebound Musculoskeletal: Yes: Other ( bilateral ankle ulcers/gangrene) Neurological: Yes: Alert, Oriented Labs: CBC, BMP 06/24/17 06:30 06/24/17 06:30 INR, PTT INR 1.01 (0.82-1.09) 06/23/17 20:31 Laboratory Last Values WBC 11.9 K/mm3 (4.0-10.0) H 06/24/17 06:30 RBC 3.08 M/mm3 (3.60-5.2) L 06/24/17 06:30 Hgb 9.0 GM/dL (10.7-15.3) L 06/24/17 06:30 Hct 26.4 % (32.4-45.2) L 06/24/17 06:30 MCV 85.4 fl (80-96) 06/24/17 06:30 MCH 29.2 pg (25.7-33.7) 06/24/17 06:30 MCHC 34.2 g/dl (32.0-36.0) 06/24/17 06:30 RDW 15.7 % (11.6-15.6) H 06/24/17 06:30 Plt Count 390 K/MM3 (134-434) 06/24/17 06:30 MPV 8.4 fl (7.5-11.1) 06/24/17 06:30 Neutrophils % 84.3 % (42.8-82.8) H 06/24/17 06:30 Lymphocytes % 9.5 % (8-40) D 06/24/17 06:30 Monocytes % 4.9 % (3.8-10.2) 06/24/17 06:30 Eosinophils % 0.5 % (0-4.5) 06/24/17 06:30 Basophils % 0.8 % (0-2.0) 06/24/17 06:30 ESR 109 mm/hr (0-30) H 06/23/17 19:09 PT with INR 11.40 SEC (9.98-11.88) 06/23/17 20:31 INR 1.01 (0.82-1.09) 06/23/17 20:31 PTT (Actin FS) 27.3 SECONDS (26.9-34.4) 06/23/17 20:31 Sodium 138 mmol/L (136-145) 06/24/17 06:30 Potassium 4.4 mmol/L (3.5-5.1) 06/24/17 06:30 Chloride 104 mmol/L (98-107) 06/24/17 06:30 Carbon Dioxide 25 mmol/L (21-32) 06/24/17 06:30 Anion Gap 9 (8-16) 06/24/17 06:30 BUN 29 mg/dL (7-18) H 06/24/17 06:30 Creatinine 1.1 mg/dL (0.55-1.02) H 06/24/17 06:30 Creat Clearance w eGFR 52.58 (>60) 06/24/17 06:30 POC Glucometer 278 UNITS (80-120) 06/24/17 06:07 Random Glucose 245 mg/dL (74-106) H 06/24/17 06:30 Hemoglobin A1c % 10.4 % (4.8-6.0) H 06/24/17 06:30 Lactic Acid 0.7 mmol/L (0.0-2.0) 06/24/17 07:00 Calcium 8.9 mg/dL (8.5-10.1) 06/24/17 06:30 Phosphorus 4.4 mg/dL (2.5-4.9) 06/24/17 06:30 Magnesium 2.0 mg/dL (1.8-2.4) 06/24/17 06:30 Total Bilirubin 0.5 mg/dL (0.2-1.0) D 06/24/17 06:30 AST 10 U/L (15-37) L 06/24/17 06:30 ALT 13 U/L (12-78) 06/24/17 06:30 Alkaline Phosphatase 85 U/L (45-117) 06/24/17 06:30 Troponin I < 0.02 ng/ml (0.00-0.05) 06/23/17 20:31 C-Reactive Protein 5.0 MG/DL (0.00-0.3) H 06/23/17 20:59 Total Protein 6.8 g/dl (6.4-8.2) 06/24/17 06:30 Albumin 2.4 g/dl (3.4-5.0) L 06/24/17 06:30 Problem List - Problems (1) Gastroparesis Code(s): K31.84 - GASTROPARESIS (2) Diabetic foot ulcer Code(s): E11.621 - TYPE 2 DIABETES MELLITUS WITH FOOT ULCER; L97.509 - NON- PRESSURE CHRONIC ULCER OT PRT UNSP FOOT W UNSP SEVERITY (3) Diabetic gastroparesis associated with type 2 diabetes mellitus Code(s): E11.43 - TYPE 2 DIABETES W DIABETIC AUTONOMIC (POLY)NEUROPATHY; K31.84 - GASTROPARESIS (4) Diabetic neuropathy with neurologic complication Code(s): E11.40 - TYPE 2 DIABETES MELLITUS WITH DIABETIC NEUROPATHY, UNSP; E11.49 - TYPE 2 DIABETES W OTH DIABETIC NEUROLOGICAL COMPLICATION (5) Nausea & vomiting Code(s): R11.2 - NAUSEA WITH VOMITING, UNSPECIFIED Assessment/Plan 52-year-old female with uncontrolled diabetes mellitus and peripheral manifestations of the same. Continues to have mostly postprandial intermittent nausea and vomiting, unrelated to any specific type of food. Normal electrolytes and liver chemistry. Suspect diabetic gastroparesis, rule out upper GI inflammatory states, pancreaticobiliary etiology. Gastroparesis diet Protonix 40 mg daily, 30 minutes before first meal of the day. US liver. EGD and gastric emptying study. Lipase Will follow. Discussed with the patient.
[2017-06-24 12:17] LABS: LIPASE 83 U/L (73-393)
[2017-06-24] MEDS: PANTOPRAZOLE 40 MG TABLET (FP) PO SCH ×2 (12:44→12:46)
[2017-06-24] MEDS ORDERED: MEROPENEM 1 GM in DEXTROSE 5%-WATER 100 ML IVPB ONE (13:00)
--- NOTE | 2017-06-24 14:15 | CON.ID ---
Consult Consult Specialty:: infectious diseases Reason for Consultation:: heel infection - History of Present Illness Chief Complaint: pain in legs History of Present Illness: 51-year-old female past medical history of hypertension, diabetes, depression with bilateral foot ulcers sent from wound clinic evaluation. Patient denies fever, chills, nausea vomiting diarrhea, abdominal pain, urinary symptoms. Patient reports severe pain to bilateral lower extremity with redness and warmth to the left heel ulcer. this patient is known to me from the last admission. patient has been following with vascular and has stents placed. currently patients main complaint is pain in the legs patient has dressing over the legs - History Source History Provided By: Patient Limitations to Obtaining History: No Limitations - Past Medical History Cardio/Vascular: Yes: HTN, Hyperlipdemia, Other (PVD) ...LMP: 02/23/17 Endocrine: Yes: Diabetes Mellitus - Past Surgical History Past Surgical History: Yes: (multiple c-sections in past) - Alcohol/Substance Use Hx Alcohol Use: No - Smoking History Smoking history: Never smoked Home Medications - Allergies Allergies/Adverse Reactions: Allergies Allergy/AdvReac Type Severity Reaction Status Date / Time Penicillins Allergy Unknown "OUT OF IT" Verified 06/23/17 18:51 - Home Medications Home Medications: Ambulatory Orders Amlodipine Besylate [Norvasc -] 10 mg PO DAILY #30 tablet 03/25/17 Aspirin Coated [Ecotrin -] 81 mg PO DAILY #30 tablet.ec 03/25/17 Atorvastatin Ca [Lipitor] 80 mg PO HS #30 tablet 03/25/17 Carvedilol [Coreg -] 12.5 mg PO BID #60 tablet 03/25/17 Clopidogrel Bisulfate [Plavix -] 75 mg PO DAILY #30 tablet 03/25/17 Docusate Sodium [Colace -] 100 mg PO TID capsule 03/25/17 Lancets [Lancets Ultra Thin] 1 each ACHS #1 box 03/25/17 Lisinopril [Prinivil] 20 mg PO DAILY #30 tablet 03/25/17 Ondansetron [Zofran Odt -] 4 mg SL Q6H PRN #30 tab.rapdis 03/25/17 Sitagliptin Phosphate [Januvia -] 25 mg PO DAILY@0700 #30 tab 03/25/17 Gabapentin [Neurontin] 300 mg PO TID 04/27/17 Tramadol HCl 50 mg PO PRN PRN 04/27/17 Collagenase Clostridium Hist. [Santyl] 1 applic TP DAILY #90 oint...g. 05/20/17 Glipizide 5 mg PO BID 05/20/17 Review of Systems - Review of Systems Constitutional: reports: No Symptoms Eyes: reports: No Symptoms HENT: reports: No Symptoms Neck: reports: No Symptoms Cardiovascular: reports: No Symptoms Respiratory: reports: No Symptoms Gastrointestinal: reports: No Symptoms Genitourinary: reports: No Symptoms Musculoskeletal: reports: Muscle Pain, Other Integumentary: reports: Wound, Other Neurological: reports: No Symptoms Endocrine: reports: No Symptoms Hematology/Lymphatic: reports: No Symptoms Psychiatric: reports: No Symptoms Physical Exam Vital Signs: Vital Signs Temperature 98.6 F 06/24/17 10:00 Pulse Rate 97 H 06/24/17 10:00 Respiratory Rate 20 06/24/17 10:00 Blood Pressure 149/75 06/24/17 10:00 O2 Sat by Pulse Oximetry (%) 100 06/24/17 02:54 Constitutional: Yes: Calm, Mild Distress Eyes: Yes: Conjunctiva Clear Cardiovascular: Yes: Regular Rate and Rhythm Respiratory: Yes: Regular, CTA Bilaterally Gastrointestinal: Yes: Normal Bowel Sounds, Soft Musculoskeletal: Yes: WNL Extremities: Yes: Other Wound/Incision: Yes: Dressing Dry and Intact Neurological: Yes: Alert, Oriented Psychiatric: Yes: Alert, Oriented Labs: CBC, BMP 06/24/17 06:30 06/24/17 06:30 Imaging - Results Chest X-ray: Report Reviewed, Image Reviewed X-ray: Report Reviewed, Image Reviewed Ultrasound: Report Reviewed, Image Reviewed Assessment/Plan Problem List - Problems (1) Gastroparesis Code(s): K31.84 - GASTROPARESIS (2) Diabetic foot ulcer Code(s): E11.621 - TYPE 2 DIABETES MELLITUS WITH FOOT ULCER; L97.509 - NON- PRESSURE CHRONIC ULCER OTH PRT UNSP FOOT W UNSP SEVERITY (3) Diabetic gastroparesis associated with type 2 diabetes mellitus Code(s): E11.43 - TYPE 2 DIABETES W DIABETIC AUTONOMIC (POLY)NEUROPATHY; K31.84 - GASTROPARESIS (4) Diabetic neuropathy with neurologic complication Code(s): E11.40 - TYPE 2 DIABETES MELLITUS WITH DIABETIC NEUROPATHY, UNSP; E11.49 - TYPE 2 DIABETES W OTH DIABETIC NEUROLOGICAL COMPLICATION (5) Nausea & vomiting Code(s): R11.2 - NAUSEA WITH VOMITING, UNSPECIFIED patient known to me from last admission being admitted for the legs pain patient has multiple ulcers on the leg the cx have been send also patient going in for mri for evaluation of her status of the bones plan await for cx report await for imaging studies will continue zosyn for now rest as per the team
[2017-06-24] MEDS: morphine SULFATE 4 MG/ML VIAL IVPUSH PRN ×2 (16:20→21:47)
--- NOTE | 2017-06-24 17:54 | PN ---
Teaching Attending Note Name of Resident: Shoaib Chris ATTENDING PHYSICIAN STATEMENT I saw and evaluated the patient. I reviewed the resident's note and discussed the case with the resident. I agree with the resident's findings and plan as documented. SUBJECTIVE: No fever or chills, N/V improved . no abd pain. discomfort and pain in L heel OBJECTIVE: NAD , flat affect Cv : RRR, no MRG Lungs: CTAB Abd: soft, NT, ND , NL BS Ext: no edema on legs.. R heel with big escar with no surrounding erythema, no draiange . L heel with big escar but with surrounding erythema and possible collection with bad odor DP 1+ on R ,, non palpable on L . warm feet ASSESSMENT AND PLAN: 52 y/o lady with h/o HTN, PVD, DM , depression , and recent admission in Mar for infected R heel ulcer s/p angioplasty and R stent placement who rpesented with malodorous discharge form L heel 1- Sepsis 2/2 Infected L heel ulcer with possible abscess formation. wound cx last admission with MSSA , and E coli, with strep . PCN allergy - meropenem . d/w ID , no need for vanco -follow wound and blood cx - MRI to r/o Osteo and abscess 2- PVD: vascular consult pending CTA reviewed from last admissin severe disease at multiple levels in L side - cont Asa and plavix - cont lipitor ( LDL 193) - s/p R angioplasty and stent 3- DM : A1c 10 . she is not nterested in insulin treatment - cont SsI here - po meds as outpt 4- N/V: possible gastroperesis exacerbated by infection - gastric emptying study ( don't have isotop in house ) - EGD per GI - small frequent meals 5- HTN: cont coreg and norvasc . hold lisinopril 6- TITA: improved . cont IVF and hold lisinopril DVT Px
[2017-06-24] MEDS: MEROPENEM 1 GM in DEXTROSE 5%-WATER 100 ML IVPB SCH (18:05)
[2017-06-24] MEDS: SODIUM CHLORIDE 1,000 ML IV SCH (19:33)
--- NOTE | 2017-06-24 19:35 | PN ---
Physical Exam: SUBJECTIVE: Patient seen and examined at bedside. Patient feels better today, but continues to experience pain in the feet. No fevers overnight, no other events. OBJECTIVE: Vital Signs Period Temp Pulse Resp BP Sys/Rahman Pulse Ox Last 24 Hr 98.1 F-98.6 F 80-97 18-20 132-180/70-84 100-100 GENERAL: The patient is awake, alert, and fully oriented, in no acute distress. HEAD: Normal with no signs of trauma. EYES: PERRL, extraocular movements intact, sclera anicteric, conjunctiva clear. No ptosis. NECK: Trachea midline, full range of motion, supple. LUNGS: Breath sounds equal, clear to auscultation bilaterally, no wheezes, no crackles, no accessory muscle use. HEART: Regular rate and rhythm, S1, S2 heard. Systolic ejection murmur appreciated at the right sternal border. ABDOMEN: Soft, nontender, nondistended, normoactive bowel sounds, no guarding, no rebound. A mass can be felt on the left side of the abdomen. It is soft and oblong; likely bowel with stool inside. EXTREMITIES: 2+ pulses, warm, well-perfused, no edema. NEUROLOGICAL: Cranial nerves II through X grossly intact. Normal speech, gait not observed. SKIN: Warm, dry, normal turgor, no rashes or lesions noted. There are lesions on b/l heels. Both are black echars. No edema, no erythema, no drainage on the right. The left echar does have surrounding edema, purulent discharge and bad odor. There is an area of confluence here which may indicate an abscess/ collection. Laboratory Results - last 24 hr 06/23/17 06/23/17 06/23/17 19:09 19:09 19:09 WBC 13.6 H RBC 3.41 L Hgb 9.9 L Hct 29.0 L MCV 85.1 MCH 29.0 MCHC 34.1 RDW 15.2 D Plt Count 410 MPV 8.3 Neutrophils % 73.1 Lymphocytes % 16.1 Monocytes % 7.8 Eosinophils % 1.9 Basophils % 1.1 ESR 109 H PT with INR INR PTT (Actin FS) Sodium Cancelled Potassium Cancelled Chloride Cancelled Carbon Dioxide Cancelled Anion Gap Cancelled BUN Cancelled Creatinine Cancelled Creat Clearance w eGFR Cancelled POC Glucometer Random Glucose Cancelled Hemoglobin A1c % Lactic Acid Calcium Cancelled Phosphorus Magnesium Total Bilirubin Cancelled AST Cancelled ALT Cancelled Alkaline Phosphatase Cancelled Troponin I C-Reactive Protein Cancelled Total Protein Cancelled Albumin Cancelled Lipase 06/23/17 06/23/17 06/23/17 20:30 20:31 20:31 WBC RBC Hgb Hct MCV MCH MCHC RDW Plt Count MPV Neutrophils % Lymphocytes % Monocytes % Eosinophils % Basophils % ESR PT with INR 11.40 INR 1.01 PTT (Actin FS) 27.3 Sodium 135 L Potassium 3.9 Chloride 103 Carbon Dioxide 24 Anion Gap 8 BUN 34 H Creatinine 1.2 H Creat Clearance w eGFR 47.55 POC Glucometer Random Glucose 146 H Hemoglobin A1c % Lactic Acid Calcium 8.9 Phosphorus Magnesium Total Bilirubin 0.3 D AST 11 L ALT 18 Alkaline Phosphatase 98 Troponin I < 0.02 C-Reactive Protein Total Protein 7.5 Albumin 2.8 L Lipase 06/23/17 06/24/17 06/24/17 20:59 06:07 06:30 WBC 11.9 H RBC 3.08 L Hgb 9.0 L Hct 26.4 L MCV 85.4 MCH 29.2 MCHC 34.2 RDW 15.7 H Plt Count 390 MPV 8.4 Neutrophils % 84.3 H Lymphocytes % 9.5 D Monocytes % 4.9 Eosinophils % 0.5 Basophils % 0.8 ESR PT with INR INR PTT (Actin FS) Sodium Potassium Chloride Carbon Dioxide Anion Gap BUN Creatinine Creat Clearance w eGFR POC Glucometer 278 Random Glucose Hemoglobin A1c % Lactic Acid Calcium Phosphorus Magnesium Total Bilirubin AST ALT Alkaline Phosphatase Troponin I C-Reactive Protein 5.0 H Total Protein Albumin Lipase 06/24/17 06/24/17 06/24/17 06:30 06:30 06:30 WBC RBC Hgb Hct MCV MCH MCHC RDW Plt Count MPV Neutrophils % Lymphocytes % Monocytes % Eosinophils % Basophils % ESR PT with INR INR PTT (Actin FS) Sodium 138 Potassium 4.4 Chloride 104 Carbon Dioxide 25 Anion Gap 9 BUN 29 H Creatinine 1.1 H Creat Clearance w eGFR 52.58 POC Glucometer Random Glucose 245 H Hemoglobin A1c % 10.4 H Lactic Acid Calcium 8.9 Phosphorus 4.4 Magnesium 2.0 Total Bilirubin 0.5 D AST 10 L ALT 13 Alkaline Phosphatase 85 Troponin I C-Reactive Protein Total Protein 6.8 Albumin 2.4 L Lipase 83 Cancelled 06/24/17 06/24/17 07:00 11:17 WBC RBC Hgb Hct MCV MCH MCHC RDW Plt Count MPV Neutrophils % Lymphocytes % Monocytes % Eosinophils % Basophils % ESR PT with INR INR PTT (Actin FS) Sodium Potassium Chloride Carbon Dioxide Anion Gap BUN Creatinine Creat Clearance w eGFR POC Glucometer 211 Random Glucose Hemoglobin A1c % Lactic Acid 0.7 Calcium Phosphorus Magnesium Total Bilirubin AST ALT Alkaline Phosphatase Troponin I C-Reactive Protein Total Protein Albumin Lipase Active Medications Generic Name Dose Route Start Last Admin Trade Name Freq PRN Reason Stop Dose Admin Amlodipine Besylate 10 mg 06/24/17 10:00 06/24/17 09:38 Norvasc - PO 10 mg DAILY JESSICA Administration Aspirin 81 mg 06/24/17 10:00 06/24/17 09:38 Ecotrin - PO 81 mg DAILY JESSICA Administration Atorvastatin Calcium 80 mg 06/24/17 22:00 Lipitor - PO HS JESSICA Carvedilol 12.5 mg 06/24/17 10:00 06/24/17 09:38 Coreg - PO 12.5 mg BID JESSICA Administration Clopidogrel Bisulfate 75 mg 06/24/17 10:00 06/24/17 09:38 Plavix - PO 75 mg DAILY JESSICA Administration Docusate Sodium 100 mg 06/24/17 00:58 Colace - PO TID PRN CONSTIPATION Gabapentin 300 mg 06/24/17 06:00 06/24/17 14:41 Neurontin - PO 300 mg TID JESSICA Administration Heparin Sodium (Porcine) 5,000 unit 06/24/17 06:00 06/24/17 14:41 Heparin - SQ 5,000 unit TID [facility] Administration Meropenem 1 gm/ Dextrose 100 mls @ 200 mls/hr 06/24/17 18:00 06/24/17 18:05 IVPB 200 mls/hr Q8H-IV JESSICA Administration Sodium Chloride 1,000 mls @ 75 mls/hr 06/24/17 18:06 Normal Saline - IV ASDIR JESSICA Insulin Aspart 1 vial 06/24/17 07:00 06/24/17 18:05 Novolog Vial Sliding Scale - SQ Not Given ACHS [facility] Protocol Morphine Sulfate 2 mg 06/23/17 23:45 Morphine Sulfate IVPUSH Q6H PRN PAIN LEVEL 6-10 Ondansetron HCl 4 mg 06/24/17 00:41 Zofran Injection IVPUSH Q6H PRN NAUSEA AND/OR VOMITING Pantoprazole Sodium 40 mg 06/24/17 11:45 06/24/17 12:46 Protonix - PO Not Given DAILY JESSICA ASSESSMENT/PLAN: 51yo F with PMHx of uncontrolled DM2 admitted for hte treatment of sepsis 2/2 infected DM foot ulcer. #Sepsis 2/2 infected diabetic foot ulcer -ID consult -meropenem 1gm daily -pain control -vascular surgery consult -f/u bcx -f/u wound cx -for MRI r/o osteo #Peripheral Vascular Dz -s/p stenting last admission w/ Dr. Byrnes -f/u vascular surgery reccs -asa, plavix -arterial dopplers show abnormal flow and stenosis b/l #Nausea/Vomiting likely 2/2 DM gastroparesis -GI consult -for gastric emptying study; Isotope not in house; will cancel test and reorder on Tuesday if patient still admitted. -gastroparesis diet per GI -Zofran 4mg IV prn nausea #TITA likely 2/2 dehydration 2/2 sepsis/vomiting -IVF -avoid nephrotoxic drugs -holding home ACEI #HTN -hypertensive this AM -restart home norvasc 10mg daily -restart home coreg 12.5mg daily #DM -A1c 10.4 -Pt not interested in insulin -BGM ACHS -ISS ACHS -holding home oral hypoglycemics -c/w home gabapentin 300 TID #FEN -NS @ 75 -monitor lytes. replete PRN -fat controlled DM diet w/ low fiber #Prophylaxsis -Hep SQ 5ku TID # Dispo -Admit to inpatient med/surg Visit type - Emergency Visit Emergency Visit: Yes ED Registration Date: 06/23/17 Care time: The patient presented to the Emergency Department on the above date and was hospitalized for further evaluation of their emergent condition. - New Patient This patient is new to me today: Yes Date on this admission: 06/24/17 - Critical Care Critical Care patient: No
[2017-06-24] MEDS: ATORVASTATIN CA 80 MG TABLET (FP) PO SCH (21:13)
[2017-06-25] MEDS: MEROPENEM 1 GM in DEXTROSE 5%-WATER 100 ML IVPB SCH ×2 (02:33→10:31)
[2017-06-25] MEDS: GABAPENTIN 300 MG CAPSULE (FP) PO SCH ×4 (05:39→21:22)
[2017-06-25] MEDS: HEPARIN NA (PORCINE) 5,000 UNITS/ML 1ML VIAL SQ SCH ×3 (05:48→21:22)
[2017-06-25] MEDS: SODIUM CHLORIDE 1,000 ML IV SCH ×2 (05:54→18:35)
[2017-06-25] MEDS: INSULIN SLIDING SCALE (NOVOLOG) 1 VIAL SQ SCH ×4 (06:09→21:30)
--- NOTE | 2017-06-25 07:35 | PN ---
Physical Exam: SUBJECTIVE: Patient seen and examined laying in bed, c/o pain in her feet. awaiting abdominal u/s OBJECTIVE: Vital Signs Period Temp Pulse Resp BP Sys/Rahman Pulse Ox Last 24 Hr 98.1 F-98.6 F 80-97 18-20 140-157/74-78 100-100 GENERAL: The patient is awake, alert, in no acute distress. EYES: PERRL, extraocular movements intact, sclera anicteric, conjunctiva clear. No ptosis. ENT: oropharynx clear without exudates, moist mucous membranes. NECK: Trachea midline, full range of motion, supple. no lad, no thyromegaly LUNGS: Breath sounds equal, clear to auscultation bilaterally, no wheezes, no crackles, no accessory muscle use. HEART: Regular rate and rhythm, S1, S2 without murmur, rub or gallop. ABDOMEN: Soft, nontender, nondistended, normoactive bowel sounds, no guarding LLQ/suprpubic quadrant with firm nontender mass EXTREMITIES: 2+ dp, and radial pulses, warm, well-perfused, no edema. medial aspects of b/l heels with foul smelling eschars, ttp, fluctance, no discharge expressed.L>R NEUROLOGICAL: Cranial nerves II through XII grossly intact. Normal speech, 5/5 dorsi and plantar flexion in b/l feet, 5/5 hand adult education professional Laboratory Results - last 24 hr 06/24/17 06/24/17 06/24/17 06:30 06:30 06:30 WBC 11.9 H RBC 3.08 L Hgb 9.0 L Hct 26.4 L MCV 85.4 MCH 29.2 MCHC 34.2 RDW 15.7 H Plt Count 390 MPV 8.4 Neutrophils % 84.3 H Lymphocytes % 9.5 D Monocytes % 4.9 Eosinophils % 0.5 Basophils % 0.8 Sodium 138 Potassium 4.4 Chloride 104 Carbon Dioxide 25 Anion Gap 9 BUN 29 H Creatinine 1.1 H Creat Clearance w eGFR 52.58 POC Glucometer Random Glucose 245 H Hemoglobin A1c % 10.4 H Lactic Acid Calcium 8.9 Phosphorus 4.4 Magnesium 2.0 Total Bilirubin 0.5 D AST 10 L ALT 13 Alkaline Phosphatase 85 Total Protein 6.8 Albumin 2.4 L Lipase 83 06/24/17 06/24/17 06/24/17 06:30 07:00 11:17 WBC RBC Hgb Hct MCV MCH MCHC RDW Plt Count MPV Neutrophils % Lymphocytes % Monocytes % Eosinophils % Basophils % Sodium Potassium Chloride Carbon Dioxide Anion Gap BUN Creatinine Creat Clearance w eGFR POC Glucometer 211 Random Glucose Hemoglobin A1c % Lactic Acid 0.7 Calcium Phosphorus Magnesium Total Bilirubin AST ALT Alkaline Phosphatase Total Protein Albumin Lipase Cancelled 06/24/17 06/25/17 21:16 05:49 WBC RBC Hgb Hct MCV MCH MCHC RDW Plt Count MPV Neutrophils % Lymphocytes % Monocytes % Eosinophils % Basophils % Sodium Potassium Chloride Carbon Dioxide Anion Gap BUN Creatinine Creat Clearance w eGFR POC Glucometer 242 200 Random Glucose Hemoglobin A1c % Lactic Acid Calcium Phosphorus Magnesium Total Bilirubin AST ALT Alkaline Phosphatase Total Protein Albumin Lipase Active Medications Amlodipine Besylate (Norvasc -) 10 mg PO DAILY [facility] Last Admin: 06/24/17 09:38 Dose: 10 mg Aspirin (Ecotrin -) 81 mg PO DAILY [facility] Last Admin: 06/24/17 09:38 Dose: 81 mg Atorvastatin Calcium (Lipitor -) 80 mg PO HS [facility] Last Admin: 06/24/17 21:13 Dose: 80 mg Carvedilol (Coreg -) 12.5 mg PO BID [facility] Last Admin: 06/24/17 21:13 Dose: 12.5 mg Clopidogrel Bisulfate (Plavix -) 75 mg PO DAILY [facility] Last Admin: 06/24/17 09:38 Dose: 75 mg Docusate Sodium (Colace -) 100 mg PO TID PRN PRN Reason: CONSTIPATION Gabapentin (Neurontin -) 300 mg PO TID [facility] Last Admin: 06/25/17 05:57 Dose: Not Given Heparin Sodium (Porcine) (Heparin -) 5,000 unit SQ TID [facility] Last Admin: 06/25/17 05:48 Dose: 5,000 unit Meropenem 1 gm/ Dextrose 100 mls @ 200 mls/hr IVPB Q8H-IV [facility] Last Admin: 06/25/17 02:33 Dose: 200 mls/hr Sodium Chloride (Normal Saline -) 1,000 mls @ 75 mls/hr IV ASDIR [facility] Last Admin: 06/25/17 05:54 Dose: 75 mls/hr Insulin Aspart (Novolog Vial Sliding Scale -) 1 vial SQ ACHS [facility] PRN Reason: Protocol Last Admin: 06/25/17 06:09 Dose: Not Given Morphine Sulfate (Morphine Sulfate) 2 mg IVPUSH Q6H PRN PRN Reason: PAIN LEVEL 6-10 Last Admin: 06/24/17 21:47 Dose: 2 mg Ondansetron HCl (Zofran Injection) 4 mg IVPUSH Q6H PRN PRN Reason: NAUSEA AND/OR VOMITING Pantoprazole Sodium (Protonix -) 40 mg PO DAILY [facility]ESS[facility] Last Admin: 06/24/17 12:46 Dose: Not Given ASSESSMENT/PLAN: 52 yr old woman with uncontrolled DM, HTN admitted for b/l sepsis due to b/l foot ulcers. #Sepsis due to infected diabetic foot ulcer -ID consult : dr. ramirez -meropenem 1gm q8hr daily, day 2 -pain control with morphine, home gabapentin 300 TID -vascular surgery consult dr. porter -f/u bcx and wound cx -MRI of right foot with osteomyelitis, patient is concerned about what this means, provided reassurance, answered questions to her satisfaction, will await possible surgical plan/antibiotic course - [facility] surgery recommendations noted, will have podiatry eval for further investigation #Peripheral Vascular disease s/p stents on previous admission -asa, plavix -arterial dopplers show abnormal flow and stenosis b/l #Nausea/Vomiting likely due DM gastroparesis -GI consult: dr. garcia -for gastric emptying study; Isotope not in house; will cancel test and reorder on Tuesday(06/27) if patient still admitted. -gastroparesis diet per GI -Zofran 4mg IV prn nausea #TITA likely due to dehydration from sepsis/vomiting, improved with IVF -IVF -avoid nephrotoxic drugs -holding home ACEI #HTN -home norvasc 10mg daily -home coreg 12.5mg daily #DM - uncontrolled -A1c 10.4 -Pt not interested in insulin -BGM ACHS -ISS ACHS -holding home oral hypoglycemics #FEN -NS @ 75 -monitor lytes. replete PRN -fat controlled DM diet w/ low fiber #Prophylaxsis -Hep SQ 5ku TID # Dispo -pending evaluation, intervention for osteomylelitis, cx &sensitivity results Visit type - Emergency Visit Emergency Visit: No - New Patient This patient is new to me today: Yes Date on this admission: 06/25/17 - Critical Care Critical Care patient: No - Discharge Referral Referred to [facility] No
[2017-06-25 08:11] LABS: BASO % 1.5 % (0-2.0); EOS % 4.2 % (0-4.5); HEMATOCRIT 25.5 % (32.4-45.2); HEMOGLOBIN 8.5 GM/dL (10.7-15.3); LYMPH % 14.9 % (8-40); MCH 28.9 pg (25.7-33.7); MCHC 33.6 g/dl (32.0-36.0); MEAN CELL VOLUME 86.2 fl (80-96); MEAN PLT VOLUME 8.1 fl (7.5-11.1); MONO % 11.9 % (3.8-10.2); NEUT % 67.5 % (42.8-82.8); PLATELET COUNT 345 K/MM3 (134-434); RBC 2.95 M/mm3 (3.60-5.2); RDW 15.6 % (11.6-15.6); WHITE BLOOD COUNT 8.8 K/mm3 (4.0-10.0)
[2017-06-25 08:51] LABS: ANION GAP 9 (8-16); BLOOD UREA NITROGEN 23 mg/dL (7-18); CALCIUM 8.5 mg/dL (8.5-10.1); CHLORIDE 106 mmol/L (98-107); CO2 25 mmol/L (21-32); CREATININE 0.8 mg/dL (0.55-1.02); GLUCOSE,RANDOM 156 mg/dL (74-106); POTASSIUM 4.1 mmol/L (3.5-5.1); SODIUM 140 mmol/L (136-145)
--- NOTE | 2017-06-25 10:09 | PN ---
Progress Note (short form) - Note Progress Note: Vascular Surgery Pt seen and examined. Bl heel ulcers. Having pain in left heel. Pt has had bl lower ext heel eschars for over 4 months. Pt had angioplaty and stent placement in both lower ext in apr. Currently the right heel is a dry eschar The left heel is boggy to touch. Her main runoff in the LLE is her ant tibial artery to her forefoot. She does not have direct flow to her heel. Would avoid debriding left heel, because once the bone exposed, it will not heal and she might end up with a bka. Santyl to both heels daily Chato porter DO
[2017-06-25] MEDS: amLODIPine BESYLATE 10 MG TABLET (FP) PO SCH (10:30)
[2017-06-25] MEDS: CLOPIDOGREL BISULFATE 75 MG TABLET (FP) PO SCH (10:30)
[2017-06-25] MEDS: morphine SULFATE 4 MG/ML VIAL IVPUSH ONE (10:30)
[2017-06-25] MEDS: ASPIRIN COATED 81 MG TABLET.EC PO SCH (10:30)
[2017-06-25] MEDS: CARVEDILOL 12.5 MG TABLET (FP) PO SCH ×2 (10:30→21:22)
[2017-06-25] MEDS: PANTOPRAZOLE 40 MG TABLET (FP) PO SCH (10:30)
--- NOTE | 2017-06-25 11:43 | PN ---
Teaching Attending Note Name of Resident: Rodrigue Jain ATTENDING PHYSICIAN STATEMENT I saw and evaluated the patient. I reviewed the resident's note and discussed the case with the resident. I agree with the resident's findings and plan as documented. SUBJECTIVE: pain in L heel , depressed but not interested in any treatment ( psychotherapy or meds ) no N/V OBJECTIVE: NAD , flat affect Cv : RRR, no MRG Lungs: CTAB Abd: soft, NT, ND , NL BS . what feels like a mass in suprapubic /RLQ is felt. Ext: no edema on legs.. R heel with big escar with no surrounding erythema, no draiange . L heel with big escar but with surrounding erythema and possible collection with bad odor DP 1+ on R, non palpable on L . warm feet ASSESSMENT AND PLAN: 52 y/o lady with h/o HTN, PVD, DM , depression , and recent admission in Mar for infected R heel ulcer s/p angioplasty and R stent placement who rpesented with malodorous discharge form L heel 1- Sepsis 2/2 Infected L heel ulcer . OM of the calcaneus and abscess formation on MRI - Cont meropenem . - follow wound cx - vascular input appreciated. - will d/w Podiatry 2- PVD: severe disease at multiple levels, s/p stents to both sides - cont Asa and plavix - cont lipitor ( LDL 193) 3- DM : A1c 10 . she is not nterested in insulin treatment - cont SsI here - po meds as outpt 4- N/V: possible gastroperesis exacerbated by infection. resolved now - gastric emptying study ( don't have isotop in house ) - EGD per GI - small frequent meals 5- HTN: cont coreg and norvasc . hold lisinopril 6- TITA: improved . cont IVF and hold lisinopril DVT Px HLOC
--- NOTE | 2017-06-25 12:55 | PN ---
Progress Note, Physician History of Present Illness: stable pain still present dressing still present - Current Medication List Current Medications: Active Medications Amlodipine Besylate (Norvasc -) 10 mg PO DAILY [facility] Last Admin: 06/25/17 10:30 Dose: 10 mg Aspirin (Ecotrin -) 81 mg PO DAILY [facility] Last Admin: 06/25/17 10:30 Dose: 81 mg Atorvastatin Calcium (Lipitor -) 80 mg PO HS [facility] Last Admin: 06/24/17 21:13 Dose: 80 mg Carvedilol (Coreg -) 12.5 mg PO BID [facility] Last Admin: 06/25/17 10:30 Dose: 12.5 mg Clopidogrel Bisulfate (Plavix -) 75 mg PO DAILY [facility] Last Admin: 06/25/17 10:30 Dose: 75 mg Collagenase (Santyl -) 1 applic TP DAILY [facility] Docusate Sodium (Colace -) 100 mg PO TID PRN PRN Reason: CONSTIPATION Gabapentin (Neurontin -) 300 mg PO TID [facility] Last Admin: 06/25/17 05:57 Dose: Not Given Heparin Sodium (Porcine) (Heparin -) 5,000 unit SQ TID [facility] Last Admin: 06/25/17 05:48 Dose: 5,000 unit Sodium Chloride (Normal Saline -) 1,000 mls @ 75 mls/hr IV ASDIR [facility] Last Admin: 06/25/17 05:54 Dose: 75 mls/hr Ertapenem 1 gm/ Sodium (Chloride) 50 mls @ 50 mls/hr IVPB DAILY [facility] PRN Reason: Protocol Insulin Aspart (Novolog Vial Sliding Scale -) 1 vial SQ ACHS [facility] PRN Reason: Protocol Last Admin: 06/25/17 12:23 Dose: 4 units Morphine Sulfate (Morphine Sulfate) 2 mg IVPUSH Q6H PRN PRN Reason: PAIN LEVEL 6-10 Last Admin: 06/24/17 21:47 Dose: 2 mg Ondansetron HCl (Zofran Injection) 4 mg IVPUSH Q6H PRN PRN Reason: NAUSEA AND/OR VOMITING Pantoprazole Sodium (Protonix -) 40 mg PO DAILY [facility] Last Admin: 06/25/17 10:30 Dose: 40 mg - Objective Vital Signs: Vital Signs Temperature 98.5 F 06/25/17 10:00 Pulse Rate 85 06/25/17 10:00 Respiratory Rate 16 06/25/17 10:00 Blood Pressure 158/76 06/25/17 10:00 O2 Sat by Pulse Oximetry (%) 100 06/25/17 09:00 Constitutional: Yes: No Distress, Calm Cardiovascular: Yes: Regular Rate and Rhythm Respiratory: Yes: Regular, CTA Bilaterally Gastrointestinal: Yes: Normal Bowel Sounds, Soft Musculoskeletal: Yes: WNL Extremities: Yes: Other Neurological: Yes: Alert, Oriented Psychiatric: Yes: Alert, Oriented Labs: CBC, BMP 06/25/17 07:20 06/25/17 07:20 INR, PTT INR 1.01 (0.82-1.09) 06/23/17 20:31 - ....Imaging MRI: Report Reviewed, Image Reviewed Assessment/Plan Problem List - Problems (1) Gastroparesis Code(s): K31.84 - GASTROPARESIS (2) Diabetic foot ulcer Code(s): E11.621 - TYPE 2 DIABETES MELLITUS WITH FOOT ULCER; L97.509 - NON- PRESSURE CHRONIC ULCER OTH PRT UNSP FOOT W UNSP SEVERITY (3) Diabetic gastroparesis associated with type 2 diabetes mellitus Code(s): E11.43 - TYPE 2 DIABETES W DIABETIC AUTONOMIC (POLY)NEUROPATHY; K31.84 - GASTROPARESIS (4) Diabetic neuropathy with neurologic complication Code(s): E11.40 - TYPE 2 DIABETES MELLITUS WITH DIABETIC NEUROPATHY, UNSP; E11.49 - TYPE 2 DIABETES W OTH DIABETIC NEUROLOGICAL COMPLICATION (5) Nausea & vomiting Code(s): R11.2 - NAUSEA WITH VOMITING, UNSPECIFIED cx report noted imaging reports noted plan will change abx to ertapenam after looking at he studies patient is going to need for custodial rest continue current mgmt and as per vascular
[2017-06-25] MEDS: COLLAGENASE CLOSTRIDIUM HIST. 30 GRAMS TUBE TP SCH (13:38)
[2017-06-25] MEDS ORDERED: PT OWN MED DRAWER 7, Y5N ONE (15:10)
[2017-06-25] MEDS: ERTAPENEM SODIUM 1 GM in SODIUM CHLORIDE 50 ML IVPB SCH ×2 (16:03→17:27)
[2017-06-25] MEDS: morphine SULFATE 4 MG/ML VIAL IVPUSH PRN ×2 (17:28→22:59)
[2017-06-25] MEDS ORDERED: INSULIN (NOVOLOG) ASPART 100 UNITS/ML 10ML VIAL ONE (21:12)
[2017-06-25] MEDS: ATORVASTATIN CA 80 MG TABLET (FP) PO SCH (21:22)
[2017-06-26] MEDS ORDERED: ACETAMINOPHEN 325 MG TABLET (FP) PO ONE (05:44)
[2017-06-26] MEDS: HEPARIN NA (PORCINE) 5,000 UNITS/ML 1ML VIAL SQ SCH ×3 (06:05→21:23)
[2017-06-26] MEDS: INSULIN SLIDING SCALE (NOVOLOG) 1 VIAL SQ SCH ×4 (06:06→21:22)
[2017-06-26] MEDS: GABAPENTIN 300 MG CAPSULE (FP) PO SCH ×3 (06:06→21:24)
[2017-06-26 07:15] LABS: BASO % 0.7 % (0-2.0); EOS % 3.5 % (0-4.5); HEMATOCRIT 23.5 % (32.4-45.2); HEMOGLOBIN 7.9 GM/dL (10.7-15.3); LYMPH % 9.6 % (8-40); MCH 28.7 pg (25.7-33.7); MCHC 33.6 g/dl (32.0-36.0); MEAN CELL VOLUME 85.5 fl (80-96); MEAN PLT VOLUME 7.7 fl (7.5-11.1); MONO % 8.2 % (3.8-10.2); PLATELET COUNT 351 K/MM3 (134-434); RBC 2.75 M/mm3 (3.60-5.2)
[2017-06-26 07:31] LABS: ANION GAP 9 (8-16); BLOOD UREA NITROGEN 18 mg/dL (7-18); CHLORIDE 105 mmol/L (98-107); CO2 24 mmol/L (21-32); CREATININE 0.9 mg/dL (0.55-1.02); GLUCOSE,RANDOM 175 mg/dL (74-106); POTASSIUM 4.1 mmol/L (3.5-5.1); SODIUM 138 mmol/L (136-145)
[2017-06-26] MEDS: PANTOPRAZOLE 40 MG TABLET (FP) PO SCH (10:08)
[2017-06-26] MEDS: ASPIRIN COATED 81 MG TABLET.EC PO SCH (10:08)
[2017-06-26] MEDS: CLOPIDOGREL BISULFATE 75 MG TABLET (FP) PO SCH (10:09)
[2017-06-26] MEDS: ERTAPENEM SODIUM 1 GM in SODIUM CHLORIDE 50 ML IVPB SCH (10:09)
[2017-06-26] MEDS: CARVEDILOL 12.5 MG TABLET (FP) PO SCH ×2 (10:09→21:23)
[2017-06-26] MEDS: amLODIPine BESYLATE 10 MG TABLET (FP) PO SCH (10:09)
[2017-06-26] MEDS: COLLAGENASE CLOSTRIDIUM HIST. 30 GRAMS TUBE TP SCH (10:13)
--- NOTE | 2017-06-26 12:07 | PN ---
Progress Note, Physician History of Present Illness: patient stable c/o of pain patients dressing removed wounds looked at foul smell from the wound - Current Medication List Current Medications: Active Medications Amlodipine Besylate (Norvasc -) 10 mg PO DAILY [facility] Last Admin: 06/26/17 10:09 Dose: 10 mg Aspirin (Ecotrin -) 81 mg PO DAILY [facility] Last Admin: 06/26/17 10:08 Dose: 81 mg Atorvastatin Calcium (Lipitor -) 80 mg PO HS [facility] Last Admin: 06/25/17 21:22 Dose: 80 mg Carvedilol (Coreg -) 12.5 mg PO BID [facility] Last Admin: 06/26/17 10:09 Dose: 12.5 mg Clopidogrel Bisulfate (Plavix -) 75 mg PO DAILY [facility] Last Admin: 06/26/17 10:09 Dose: 75 mg Collagenase (Santyl -) 1 applic TP DAILY [facility] Last Admin: 06/26/17 10:13 Dose: 1 applic Docusate Sodium (Colace -) 100 mg PO TID PRN PRN Reason: CONSTIPATION Gabapentin (Neurontin -) 300 mg PO TID [facility] Last Admin: 06/26/17 06:06 Dose: 300 mg Heparin Sodium (Porcine) (Heparin -) 5,000 unit SQ TID [facility] Last Admin: 06/26/17 06:05 Dose: 5,000 unit Sodium Chloride (Normal Saline -) 1,000 mls @ 75 mls/hr IV ASDIR [facility] Last Admin: 06/25/17 18:35 Dose: Not Given Ertapenem 1 gm/ Sodium (Chloride) 50 mls @ 50 mls/hr IVPB DAILY [facility] PRN Reason: Protocol Last Admin: 06/26/17 10:09 Dose: 50 mls/hr Insulin Aspart (Novolog Vial Sliding Scale -) 1 vial SQ ACHS [facility] PRN Reason: Protocol Last Admin: 06/26/17 11:47 Dose: 4 units Morphine Sulfate (Morphine Sulfate) 2 mg IVPUSH Q6H PRN PRN Reason: PAIN LEVEL 6-10 Last Admin: 06/25/17 22:59 Dose: 2 mg Ondansetron HCl (Zofran Injection) 4 mg IVPUSH Q6H PRN PRN Reason: NAUSEA AND/OR VOMITING Pantoprazole Sodium (Protonix -) 40 mg PO DAILY [facility] Last Admin: 06/26/17 10:08 Dose: 40 mg - Objective Vital Signs: Vital Signs Temperature 99.6 F 06/26/17 08:58 Pulse Rate 90 06/26/17 08:58 Respiratory Rate 18 06/26/17 09:00 Blood Pressure 140/71 06/26/17 08:58 O2 Sat by Pulse Oximetry (%) 99 06/26/17 09:00 Constitutional: Yes: Calm, Mild Distress Eyes: Yes: Conjunctiva Clear Cardiovascular: Yes: Regular Rate and Rhythm Respiratory: Yes: Regular, CTA Bilaterally Gastrointestinal: Yes: Normal Bowel Sounds, Soft Musculoskeletal: Yes: Other Extremities: Yes: Other Wound/Incision: Yes: Other (gangrene of the heels left with foul smell) Neurological: Yes: Alert, Oriented Psychiatric: Yes: Alert, Oriented Labs: CBC, BMP 06/26/17 06:00 06/26/17 06:00 INR, PTT INR 1.01 (0.82-1.09) 06/23/17 20:31 Assessment/Plan Problem List - Problems (1) Gastroparesis Code(s): K31.84 - GASTROPARESIS (2) Diabetic foot ulcer Code(s): E11.621 - TYPE 2 DIABETES MELLITUS WITH FOOT ULCER; L97.509 - NON- PRESSURE CHRONIC ULCER OTH PRT UNSP FOOT W UNSP SEVERITY (3) Diabetic gastroparesis associated with type 2 diabetes mellitus Code(s): E11.43 - TYPE 2 DIABETES W DIABETIC AUTONOMIC (POLY)NEUROPATHY; K31.84 - GASTROPARESIS (4) Diabetic neuropathy with neurologic complication Code(s): E11.40 - TYPE 2 DIABETES MELLITUS WITH DIABETIC NEUROPATHY, UNSP; E11.49 - TYPE 2 DIABETES W OTH DIABETIC NEUROLOGICAL COMPLICATION (5) Nausea & vomiting Code(s): R11.2 - NAUSEA WITH VOMITING, UNSPECIFIED cx report noted imaging reports noted plan continue ertapenam vascular on case wound care rest as per the team
[2017-06-26] MEDS: SODIUM CHLORIDE 1,000 ML IV SCH (13:07)
--- NOTE | 2017-06-26 14:05 | PN ---
Progress Note (short form) - Note Progress Note: Subjective: fever this am . pain in L heel Objective: Vital Signs: Last Vital Signs Temp Pulse Resp BP Pulse Ox 99.6 F 90 18 140/71 99 06/26/17 08:58 06/26/17 08:58 06/26/17 09:00 06/26/17 08:58 06/26/17 09:00 Laboratory Results - last 24 hr 06/25/17 06/25/17 06/26/17 17:26 21:17 06:00 WBC 13.0 H D RBC 2.75 L Hgb 7.9 L Hct 23.5 L MCV 85.5 MCH 28.7 MCHC 33.6 RDW 15.0 Plt Count 351 MPV 7.7 Neutrophils % 78.0 Lymphocytes % 9.6 D Monocytes % 8.2 Eosinophils % 3.5 Basophils % 0.7 Sodium Potassium Chloride Carbon Dioxide Anion Gap BUN Creatinine POC Glucometer 331 201 Random Glucose Calcium 06/26/17 06/26/17 06/26/17 06:00 06:01 11:43 WBC RBC Hgb Hct MCV MCH MCHC RDW Plt Count MPV Neutrophils % Lymphocytes % Monocytes % Eosinophils % Basophils % Sodium 138 Potassium 4.1 Chloride 105 Carbon Dioxide 24 Anion Gap 9 BUN 18 Creatinine 0.9 POC Glucometer 174 221 Random Glucose 175 H Calcium 8.0 L Physical Exam: NAD, flat affect Cv : RRR, no MRG Lungs: CTAB Ext: no edema on legs.. R heel with big escar with no surrounding erythema, no draiange . L heel with big escar but with surrounding erythema( erythema is worse) and bad odor . No drainage form wound today DP 1+ on both sides ASSESSMENT AND PLAN: 52 y/o lady with h/o HTN, PVD, DM , depression , and recent admission [place] for infected R heel ulcer s/p angioplasty and R stent placement who rpesented with malodorous discharge form L heel 1- Sepsis 2/2 Infected L heel ulcer. OM of the calcaneus and abscess formation on MRI . WBC is worse and had fever . - Cont ertapenem . - wound cx with alph hemolytic strep - vascular input appreciated. - Podiatry consult pending - monitor fever and leukocytosis 2- PVD: severe disease at multiple levels, s/p stents to both sides - cont Asa and plavix - cont lipitor 3- DM : - cont SSI here - po meds as outpt 4- N/V: possible gastroperesis exacerbated by infection. resolved now - gastric emptying study as outpt - EGD per GI - small frequent meals 5- HTN: -cont coreg and norvasc. -if renal function remains stable , will resume lisinopril 6- TITA: resolved. Dc IVF DVT Px HLOC Visit type - Emergency Visit Emergency Visit: Yes ED Registration Date: 06/23/17 Care time: The patient presented to the Emergency Department on the above date and was hospitalized for further evaluation of their emergent condition. - New Patient This patient is new to me today: No - Critical Care Critical Care patient: No
[2017-06-26] MEDS: morphine SULFATE 4 MG/ML VIAL IVPUSH PRN ×2 (14:51→21:06)
[2017-06-26] MEDS ORDERED: ACETAMINOPHEN 325 MG TABLET (FP) ONE (17:07)
[2017-06-26] MEDS ORDERED: INSULIN (NOVOLOG) ASPART 100 UNITS/ML 10ML VIAL ONE ×2 (18:26→21:19)
[2017-06-26] MEDS: ATORVASTATIN CA 80 MG TABLET (FP) PO SCH (21:24)
[2017-06-27] MEDS: GABAPENTIN 300 MG CAPSULE (FP) PO SCH ×3 (05:54→21:52)
[2017-06-27] MEDS: HEPARIN NA (PORCINE) 5,000 UNITS/ML 1ML VIAL SQ SCH ×3 (05:54→21:52)
[2017-06-27] MEDS: morphine SULFATE 4 MG/ML VIAL IVPUSH PRN (05:55)
[2017-06-27] MEDS: INSULIN SLIDING SCALE (NOVOLOG) 1 VIAL SQ SCH ×4 (06:22→21:53)
[2017-06-27 07:04] LABS: BASO % 0.7 % (0-2.0); HEMATOCRIT 25.2 % (32.4-45.2); HEMOGLOBIN 8.3 GM/dL (10.7-15.3); LYMPH % 8.7 % (8-40); MCH 28.5 pg (25.7-33.7); MCHC 33.1 g/dl (32.0-36.0); MEAN CELL VOLUME 86.2 fl (80-96); MEAN PLT VOLUME 7.8 fl (7.5-11.1); MONO % 7.6 % (3.8-10.2); PLATELET COUNT 376 K/MM3 (134-434); RBC 2.92 M/mm3 (3.60-5.2); RDW 15.1 % (11.6-15.6); WHITE BLOOD COUNT 13.9 K/mm3 (4.0-10.0)
[2017-06-27 07:26] LABS: ANION GAP 6 (8-16); BLOOD UREA NITROGEN 18 mg/dL (7-18); CALCIUM 8.1 mg/dL (8.5-10.1); CHLORIDE 107 mmol/L (98-107); CO2 25 mmol/L (21-32); CREATININE 0.9 mg/dL (0.55-1.02); GLUCOSE,RANDOM 218 mg/dL (74-106); POTASSIUM 4.3 mmol/L (3.5-5.1); SODIUM 138 mmol/L (136-145)
[2017-06-27] MEDS ORDERED: PT OWN MED DRAWER 7, Y5N ONE (09:28)
[2017-06-27] MEDS: PANTOPRAZOLE 40 MG TABLET (FP) PO SCH (09:38)
[2017-06-27] MEDS: ASPIRIN COATED 81 MG TABLET.EC PO SCH (09:38)
[2017-06-27] MEDS: CLOPIDOGREL BISULFATE 75 MG TABLET (FP) PO SCH (09:38)
[2017-06-27] MEDS: amLODIPine BESYLATE 10 MG TABLET (FP) PO SCH (09:38)
[2017-06-27] MEDS: CARVEDILOL 12.5 MG TABLET (FP) PO SCH ×2 (09:38→21:52)
[2017-06-27] MEDS: ERTAPENEM SODIUM 1 GM in SODIUM CHLORIDE 50 ML IVPB SCH (09:40)
--- NOTE | 2017-06-27 10:11 | PN ---
Progress Note, Physician History of Present Illness: feels better still with pain had couple of bouts of fever wound looked at - Current Medication List Current Medications: Active Medications Amlodipine Besylate (Norvasc -) 10 mg PO DAILY COUNTS INCLUDE 234 BEDS AT THE [facility] Last Admin: 06/27/17 09:38 Dose: 10 mg Aspirin (Ecotrin -) 81 mg PO DAILY COUNTS INCLUDE 234 BEDS AT THE [facility] Last Admin: 06/27/17 09:38 Dose: 81 mg Atorvastatin Calcium (Lipitor -) 80 mg PO HS COUNTS INCLUDE 234 BEDS AT THE [facility] Last Admin: 06/26/17 21:24 Dose: 80 mg Carvedilol (Coreg -) 12.5 mg PO BID COUNTS INCLUDE 234 BEDS AT THE [facility] Last Admin: 06/27/17 09:38 Dose: 12.5 mg Clopidogrel Bisulfate (Plavix -) 75 mg PO DAILY COUNTS INCLUDE 234 BEDS AT THE [facility] Last Admin: 06/27/17 09:38 Dose: 75 mg Collagenase (Santyl -) 1 applic TP DAILY COUNTS INCLUDE 234 BEDS AT THE [facility] Last Admin: 06/26/17 10:13 Dose: 1 applic Docusate Sodium (Colace -) 100 mg PO TID PRN PRN Reason: CONSTIPATION Gabapentin (Neurontin -) 300 mg PO TID COUNTS INCLUDE 234 BEDS AT THE [facility] Last Admin: 06/27/17 05:54 Dose: 300 mg Heparin Sodium (Porcine) (Heparin -) 5,000 unit SQ TID COUNTS INCLUDE 234 BEDS AT THE [facility] Last Admin: 06/27/17 05:54 Dose: 5,000 unit Ertapenem 1 gm/ Sodium (Chloride) 50 mls @ 50 mls/hr IVPB DAILY COUNTS INCLUDE 234 BEDS AT THE [facility] PRN Reason: Protocol Last Admin: 06/27/17 09:40 Dose: 50 mls/hr Insulin Aspart (Novolog Vial Sliding Scale -) 1 vial SQ ACHS COUNTS INCLUDE 234 BEDS AT THE [facility] PRN Reason: Protocol Last Admin: 06/27/17 06:22 Dose: 4 units Morphine Sulfate (Morphine Sulfate) 2 mg IVPUSH Q6H PRN PRN Reason: PAIN LEVEL 6-10 Last Admin: 06/27/17 05:55 Dose: 2 mg Ondansetron HCl (Zofran Injection) 4 mg IVPUSH Q6H PRN PRN Reason: NAUSEA AND/OR VOMITING Pantoprazole Sodium (Protonix -) 40 mg PO DAILY COUNTS INCLUDE 234 BEDS AT THE [facility] Last Admin: 06/27/17 09:38 Dose: 40 mg - Objective Vital Signs: Vital Signs Temperature 99.5 F 06/27/17 06:00 Pulse Rate 94 H 06/27/17 06:00 Respiratory Rate 20 06/27/17 06:00 Blood Pressure 143/86 06/27/17 06:00 O2 Sat by Pulse Oximetry (%) 99 06/26/17 21:00 Constitutional: Yes: Calm, Mild Distress Cardiovascular: Yes: Regular Rate and Rhythm Respiratory: Yes: Regular, CTA Bilaterally Gastrointestinal: Yes: Normal Bowel Sounds, Soft Musculoskeletal: Yes: Other Extremities: Yes: Other Wound/Incision: Yes: Dressing Dry and Intact Neurological: Yes: Alert, Oriented Psychiatric: Yes: Alert, Oriented Labs: CBC, BMP 06/27/17 06:00 06/27/17 06:00 INR, PTT INR 1.01 (0.82-1.09) 06/23/17 20:31 Assessment/Plan Problem List - Problems (1) Gastroparesis Code(s): K31.84 - GASTROPARESIS (2) Diabetic foot ulcer Code(s): E11.621 - TYPE 2 DIABETES MELLITUS WITH FOOT ULCER; L97.509 - NON- PRESSURE CHRONIC ULCER OTH PRT UNSP FOOT W UNSP SEVERITY (3) Diabetic gastroparesis associated with type 2 diabetes mellitus Code(s): E11.43 - TYPE 2 DIABETES W DIABETIC AUTONOMIC (POLY)NEUROPATHY; K31.84 - GASTROPARESIS (4) Diabetic neuropathy with neurologic complication Code(s): E11.40 - TYPE 2 DIABETES MELLITUS WITH DIABETIC NEUROPATHY, UNSP; E11.49 - TYPE 2 DIABETES W OTH DIABETIC NEUROLOGICAL COMPLICATION (5) Nausea & vomiting Code(s): R11.2 - NAUSEA WITH VOMITING, UNSPECIFIED cx report noted imaging reports noted plan continue ertapenam awaiting podiatry to see the patient monitor for fevers rest continue current mgmt
[2017-06-27] MEDS: COLLAGENASE CLOSTRIDIUM HIST. 30 GRAMS TUBE TP SCH (11:00)
[2017-06-27] MEDS: ACETAMINOPHEN 325 MG TABLET (FP) PO PRN ×2 (12:36→17:02)
[2017-06-27] MEDS: oxyCODONE HCL 5 MG TABLET PO PRN ×3 (12:37→22:00)
--- NOTE | 2017-06-27 14:27 | PN ---
Teaching Attending Note Name of Resident: Shoaib Chris ATTENDING PHYSICIAN STATEMENT I saw and evaluated the patient. I reviewed the resident's note and discussed the case with the resident. I agree with the resident's findings and plan as documented. SUBJECTIVE: no fever or chills. lastngiht. has pain in L heel. no N/V. no Abd pain OBJECTIVE: NAD, flat affect Cv : RRR, no MRG Lungs: CTAB Ext: no edema on legs.. R heel with big escar with no surrounding erythema, no drainage . L heel with big eschar but with surrounding erythema up to behind laterel amalleolus . and bad odor . No drainage form wound today DP 1+ on both sides ASSESSMENT AND PLAN: 52 y/o lady with h/o HTN, PVD, DM , depression , and recent [place] for infected R heel ulcer s/p angioplasty and R stent placement who rpesented with malodorous discharge form L heel 1- Sepsis 2/2 Infected L heel ulcer. OM of the calcaneus and abscess formation on MRI . - Cont ertapenem . - wound cx with alph hemolytic strep - Podiatry consult pending. ? abscess drainage - monitor fever and leukocytosis 2- PVD: severe disease at multiple levels, s/p stents to both sides - cont Asa and plavix - cont lipitor 3- DM : - cont SSI. need better control here , to help with heeling. - ad levemir at HS - at dc she refuses to use insulin 4- N/V: possible gastroperesis exacerbated by infection. - gastric emptying study a - EGD per GI - small frequent meals 5- HTN: -cont coreg and norvasc. - will resume lisinopril 6- TITA: resolved. DVT Px HLOC
--- NOTE | 2017-06-27 14:28 | PN ---
Physical Exam: SUBJECTIVE: Patient seen and examined at bedside. Patient complaining of pain in both her feet as well as itching on her left foot. OBJECTIVE: Vital Signs Period Temp Pulse Resp BP Sys/Rahman Pulse Ox Last 24 Hr 99 F-100.2 F 94-95 20-20 142-149/67-86 99 GENERAL: The patient is awake, alert, and fully oriented, in no acute distress. HEAD: Normal with no signs of trauma. EYES: PERRL, extraocular movements intact, sclera anicteric, conjunctiva clear. No ptosis. NECK: Trachea midline, full range of motion, supple. LUNGS: Breath sounds equal, clear to auscultation bilaterally, no wheezes, no crackles, no accessory muscle use. HEART: Regular rate and rhythm, S1, S2 heard. Systolic ejection murmur appreciated at the right sternal border. ABDOMEN: Soft, nontender, nondistended, normoactive bowel sounds, no guarding, no rebound. EXTREMITIES: 2+ pulses, warm, well-perfused, no edema. NEUROLOGICAL: Cranial nerves II through X grossly intact. Normal speech, gait not observed. SKIN: Warm, dry, normal turgor, no rashes or lesions noted. Black eschars on b/ l heels. Eschars are malodorus, have purulent drainage and are painful to the touch. There is induration around both affected areas. Laboratory Results - last 24 hr 06/26/17 06/26/17 06/27/17 17:29 21:12 05:43 WBC RBC Hgb Hct MCV MCH MCHC RDW Plt Count MPV Neutrophils % Lymphocytes % Monocytes % Eosinophils % Basophils % Sodium Potassium Chloride Carbon Dioxide Anion Gap BUN Creatinine POC Glucometer 310 238 219 Random Glucose Calcium 06/27/17 06/27/17 06/27/17 06:00 06:00 11:18 WBC 13.9 H RBC 2.92 L Hgb 8.3 L Hct 25.2 L MCV 86.2 MCH 28.5 MCHC 33.1 RDW 15.1 Plt Count 376 MPV 7.8 Neutrophils % 80.0 Lymphocytes % 8.7 Monocytes % 7.6 Eosinophils % 3.0 Basophils % 0.7 Sodium 138 Potassium 4.3 Chloride 107 Carbon Dioxide 25 Anion Gap 6 L BUN 18 Creatinine 0.9 POC Glucometer 235 Random Glucose 218 H Calcium 8.1 L Active Medications Generic Name Dose Route Start Last Admin Trade Name Freq PRN Reason Stop Dose Admin Acetaminophen 325 mg 06/27/17 12:13 06/27/17 12:36 Tylenol - PO 06/30/17 12:12 325 mg Q4H PRN Administration PAIN LEVEL 6-10 Amlodipine Besylate 10 mg 06/24/17 10:00 06/27/17 09:38 Norvasc - PO 10 mg DAILY JESSICA Administration Aspirin 81 mg 06/24/17 10:00 06/27/17 09:38 Ecotrin - PO 81 mg DAILY [facility] Administration Atorvastatin Calcium 80 mg 06/24/17 22:00 06/26/17 21:24 Lipitor - PO 80 mg HS [facility] Administration Carvedilol 12.5 mg 06/24/17 10:00 06/27/17 09:38 Coreg - PO 12.5 mg BID JESSICA Administration Clopidogrel Bisulfate 75 mg 06/24/17 10:00 06/27/17 09:38 Plavix - PO 75 mg DAILY [facility] Administration Collagenase 1 applic 06/25/17 12:30 06/27/17 11:00 Santyl - TP 1 applic DAILY [facility] Administration Docusate Sodium 100 mg 06/24/17 00:58 Colace - PO TID PRN CONSTIPATION Gabapentin 300 mg 06/24/17 06:00 06/27/17 13:42 Neurontin - PO 300 mg TID [facility] Administration Heparin Sodium (Porcine) 5,000 unit 06/24/17 06:00 06/27/17 13:42 Heparin - SQ 5,000 unit TID [facility] Administration Ertapenem 1 gm/ Sodium 50 mls @ 50 mls/hr 06/25/17 13:00 06/27/17 09:40 Chloride IVPB 50 mls/hr DAILY [facility] Administration Protocol Insulin Aspart 1 vial 06/24/17 07:00 06/27/17 12:15 Novolog Vial Sliding Scale - SQ 4 units ACHS [facility] Administration Protocol Insulin Detemir 10 units 06/27/17 22:00 Levemir Vial SQ HS [facility] Ondansetron HCl 4 mg 06/24/17 00:41 Zofran Injection IVPUSH Q6H PRN NAUSEA AND/OR VOMITING Oxycodone HCl 5 mg 06/27/17 12:13 06/27/17 12:37 Roxicodone - PO 5 mg Q4H PRN Administration LEVEL 6-10 Pantoprazole Sodium 40 mg 06/24/17 11:45 06/27/17 09:38 Protonix - PO 40 mg DAILY JESS[facility] Administration ASSESSMENT/PLAN: 51yo F with PMHx of uncontrolled DM2 admitted for the treatment of sepsis 2/2 infected DM foot ulcer. #Sepsis 2/2 infected diabetic foot ulcer -ID consult -ertapenem 1gm daily (day 2) (3 days total abx) -pain control; changing IV morphine for PO percocet. -vascular surgery: no surgical intervention indicated 2/2 poor blood flow to the area -wound cx growing alpha hemolytic strep -MRI showed osteo and possible abscess on the right. -Awaiting podiatry eval #Peripheral Vascular Dz -asa, plavix #Nausea/Vomiting likely 2/2 DM gastroparesis -GI consult -For gastric emptying study tomorrow; isotope ordered. Patient for EGD Tuesday as well. -gastroparesis diet per GI -Zofran 4mg IV prn nausea #TITA likely 2/2 dehydration 2/2 sepsis/vomiting -IVF -avoid nephrotoxic drugs -holding home ACEI #HTN -hypertensive this AM -c/w home norvasc 10mg daily -c/w home coreg 12.5mg daily #DM -Adding 10u Levemir HS for better glycemic control -BGM ACHS -ISS ACHS -c/w home gabapentin 300 TID #FEN -no fluids indicated -monitor lytes. replete PRN -fat controlled DM diet; NPO past midnight #Prophylaxsis -Hep SQ 5ku TID # Dispo -Admit to inpatient med/surg Visit type - Emergency Visit Emergency Visit: Yes ED Registration Date: 06/23/17 Care time: The patient presented to the Emergency Department on the above date and was hospitalized for further evaluation of their emergent condition. - New Patient This patient is new to me today: No - Critical Care Critical Care patient: No
[2017-06-27] MEDS ORDERED: INSULIN (NOVOLOG) ASPART 100 UNITS/ML 10ML VIAL ONE (21:25)
[2017-06-27] MEDS: ATORVASTATIN CA 80 MG TABLET (FP) PO SCH (21:52)
[2017-06-27] MEDS: INSULIN DETEMIR 100 UNITS/ML MDV SQ SCH (21:53)
[2017-06-28] MEDS: oxyCODONE HCL 5 MG TABLET PO PRN ×4 (05:47→21:55)
[2017-06-28] MEDS: HEPARIN NA (PORCINE) 5,000 UNITS/ML 1ML VIAL SQ SCH ×3 (05:47→21:55)
[2017-06-28] MEDS: GABAPENTIN 300 MG CAPSULE (FP) PO SCH ×3 (05:48→21:55)
[2017-06-28] MEDS: ACETAMINOPHEN 325 MG TABLET (FP) PO PRN ×4 (05:49→21:56)
[2017-06-28 07:44] LABS: INR 1.11 (0.82-1.09); PROTHROMBIN TIME (PATIENT) 12.5 SEC (9.7-13.0)
[2017-06-28 07:50] LABS: HEMATOCRIT 23.8 % (32.4-45.2); MCH 28.6 pg (25.7-33.7); MCHC 33.4 g/dl (32.0-36.0); MEAN CELL VOLUME 85.7 fl (80-96); MEAN PLT VOLUME 8.1 fl (7.5-11.1); PLATELET COUNT 367 K/MM3 (134-434); RBC 2.78 M/mm3 (3.60-5.2); RDW 14.9 % (11.6-15.6)
[2017-06-28 08:03] LABS: CHLORIDE 105 mmol/L (98-107); POTASSIUM 4.5 mmol/L (3.5-5.1); SODIUM 136 mmol/L (136-145)
[2017-06-28 08:08] LABS: ANION GAP 6 (8-16); BLOOD UREA NITROGEN 18 mg/dL (7-18); CALCIUM 8.2 mg/dL (8.5-10.1); CO2 25 mmol/L (21-32); CREATININE 0.9 mg/dL (0.55-1.02); GLUCOSE,RANDOM 167 mg/dL (74-106)
[2017-06-28] MEDS ORDERED: PT OWN MED DRAWER 7, Y5N ONE (09:57)
[2017-06-28] MEDS: amLODIPine BESYLATE 10 MG TABLET (FP) PO SCH (10:06)
[2017-06-28] MEDS: CLOPIDOGREL BISULFATE 75 MG TABLET (FP) PO SCH (10:06)
[2017-06-28] MEDS: ASPIRIN COATED 81 MG TABLET.EC PO SCH (10:06)
[2017-06-28] MEDS: PANTOPRAZOLE 40 MG TABLET (FP) PO SCH (10:06)
[2017-06-28] MEDS: CARVEDILOL 12.5 MG TABLET (FP) PO SCH ×2 (10:06→21:55)
[2017-06-28] MEDS: ERTAPENEM SODIUM 1 GM in SODIUM CHLORIDE 50 ML IVPB SCH (10:08)
[2017-06-28] MEDS: COLLAGENASE CLOSTRIDIUM HIST. 30 GRAMS TUBE TP SCH (10:08)
--- NOTE | 2017-06-28 11:07 | PN ---
Progress Note, Physician History of Present Illness: complain of pain in the heel has remained afebrile - Current Medication List Current Medications: Active Medications Acetaminophen (Tylenol -) 325 mg PO Q4H PRN PRN Reason: PAIN LEVEL 6-10 Stop: 06/30/17 12:12 Last Admin: 06/28/17 10:07 Dose: 325 mg Amlodipine Besylate (Norvasc -) 10 mg PO DAILY [facility] Last Admin: 06/28/17 10:06 Dose: 10 mg Aspirin (Ecotrin -) 81 mg PO DAILY [facility] Last Admin: 06/28/17 10:06 Dose: 81 mg Atorvastatin Calcium (Lipitor -) 80 mg PO HS [facility] Last Admin: 06/27/17 21:52 Dose: 80 mg Carvedilol (Coreg -) 12.5 mg PO BID [facility] Last Admin: 06/28/17 10:06 Dose: 12.5 mg Clopidogrel Bisulfate (Plavix -) 75 mg PO DAILY [facility] Last Admin: 06/28/17 10:06 Dose: 75 mg Collagenase (Santyl -) 1 applic TP DAILY [facility] Last Admin: 06/28/17 10:08 Dose: 1 applic Docusate Sodium (Colace -) 100 mg PO TID PRN PRN Reason: CONSTIPATION Gabapentin (Neurontin -) 300 mg PO TID [facility] Last Admin: 06/28/17 05:48 Dose: 300 mg Heparin Sodium (Porcine) (Heparin -) 5,000 unit SQ TID [facility] Last Admin: 06/28/17 05:47 Dose: 5,000 unit Ertapenem 1 gm/ Sodium (Chloride) 50 mls @ 50 mls/hr IVPB DAILY [facility] PRN Reason: Protocol Last Admin: 06/28/17 10:08 Dose: 50 mls/hr Insulin Aspart (Novolog Vial Sliding Scale -) 1 vial SQ ACHS [facility] PRN Reason: Protocol Last Admin: 06/27/17 21:53 Dose: 6 units Insulin Detemir (Levemir Vial) 10 units SQ HS [facility] Last Admin: 06/27/17 21:53 Dose: 10 units Ondansetron HCl (Zofran Injection) 4 mg IVPUSH Q6H PRN PRN Reason: NAUSEA AND/OR VOMITING Oxycodone HCl (Roxicodone -) 5 mg PO Q4H PRN PRN Reason: LEVEL 6-10 Last Admin: 06/28/17 10:06 Dose: 5 mg Pantoprazole Sodium (Protonix -) 40 mg PO DAILY [facility] Last Admin: 06/28/17 10:06 Dose: 40 mg - Objective Vital Signs: Vital Signs Temperature 99.2 F 06/28/17 06:13 Pulse Rate 94 H 06/28/17 06:13 Respiratory Rate 20 06/28/17 06:13 Blood Pressure 160/86 06/28/17 06:13 O2 Sat by Pulse Oximetry (%) 99 06/27/17 21:00 Constitutional: Yes: Calm, Mild Distress, Thin Cardiovascular: Yes: Regular Rate and Rhythm Respiratory: Yes: Regular, CTA Bilaterally Gastrointestinal: Yes: Normal Bowel Sounds, Soft Musculoskeletal: Yes: WNL Extremities: Yes: Other Wound/Incision: Yes: Dressing Dry and Intact Neurological: Yes: Alert, Oriented Psychiatric: Yes: Alert, Oriented Labs: CBC, BMP 06/28/17 06:20 06/28/17 06:20 INR, PTT INR 1.11 (0.82-1.09) 06/28/17 06:20 Assessment/Plan Problem List - Problems (1) Gastroparesis Code(s): K31.84 - GASTROPARESIS (2) Diabetic foot ulcer Code(s): E11.621 - TYPE 2 DIABETES MELLITUS WITH FOOT ULCER; L97.509 - NON- PRESSURE CHRONIC ULCER OTH PRT UNSP FOOT W UNSP SEVERITY (3) Diabetic gastroparesis associated with type 2 diabetes mellitus Code(s): E11.43 - TYPE 2 DIABETES W DIABETIC AUTONOMIC (POLY)NEUROPATHY; K31.84 - GASTROPARESIS (4) Diabetic neuropathy with neurologic complication Code(s): E11.40 - TYPE 2 DIABETES MELLITUS WITH DIABETIC NEUROPATHY, UNSP; E11.49 - TYPE 2 DIABETES W OTH DIABETIC NEUROLOGICAL COMPLICATION (5) Nausea & vomiting Code(s): R11.2 - NAUSEA WITH VOMITING, UNSPECIFIED cx report noted imaging reports noted plan continue current mgmt patient will need treatment for about 6 weeks vascular plan will order repeat esr and crp
[2017-06-28] MEDS: INSULIN SLIDING SCALE (NOVOLOG) 1 VIAL SQ SCH ×4 (11:35→22:00)
[2017-06-28] MEDS ORDERED: INSULIN (NOVOLOG) ASPART 100 UNITS/ML 10ML VIAL ONE ×2 (16:53→21:06)
--- NOTE | 2017-06-28 17:24 | PN ---
Progress Note (short form) - Note Progress Note: Vascular Surgery Pt seen and examined. Will do bl heel debridements on . Please clear from a medical standpoint. Maame Byrnes DO
--- NOTE | 2017-06-28 17:36 | CONSULT ---
Consult - text type - Consultation Consultation Note: Podiatry Consultation: 52 year old poorly controlled IDDM F presents with worsening B/L heel ulcers, history of PVD. Patient currently in SNF, s/p B/L angiogram with Dr. Byrnes. Seen in wound healing center, has persistent pain to bilateral heels. Currently with low grade temp despite abx. PMHx: IDDM, HTN,PVD Meds: noted ALL: PCN MARIE: Pedal pulses non-palpable, TG warm-warmer L foot, CFT brisk to all toes. There is a right medial heel ulcer with necrotic eschar, underlying fibrotic tissue that is foul smelling with some purulence, no soft tissue crepitus, bogginess is present. Significant tenderness to palpation. There is a left lateral heel ulcer, necrotic eschar with foul smelling fibrotic tissue underlying, significant tenderness to palpation, some purulence at periphery, no soft tissue crepitus. Persistent periwound erythema to the left heel. WBC: 13.0 Wound Cx: alpha hemolytic strep MRI: osteo with advancing abscess Imp: 52 year old DM F with PVD, B/L diabetic heel ulcers 1. With verbal consent obtained, bedside incision and drainage performed of bilateral heels. Discussed case with Dr. Byrnes, needs OR debridement which will be done by Dr. Byrnes this . Guarded prognosis given element of diabetic heel ulcers and extensive PVD. 2. C/w IV abx per ID 3. C/w glycemic control 4. C/w local wound care Rx. 5. Thank you for the courtesy of this consultation. Minnie Bhakta DPM
--- NOTE | 2017-06-28 19:06 | PN ---
Teaching Attending Note Name of Resident: Shoaib Chris ATTENDING PHYSICIAN STATEMENT I saw and evaluated the patient. I reviewed the resident's note and discussed the case with the resident. I agree with the resident's findings and plan as documented. SUBJECTIVE: No fever or chills . pain in L heel. OBJECTIVE: NAD, flat affect Cv : RRR, no MRG Lungs: CTAB Ext: no edema on legs. R heel with big eshcar with no surrounding erythema, no drainage . L heel with big eschar but with surrounding erythema up to behind lateral malleolus . and bad odor. No drainage form wound today DP 1+ on R. L DP unpalpable ASSESSMENT AND PLAN: 52 y/o lady with h/o HTN, PVD, DM , depression , and recent [place] for infected R heel ulcer s/p angioplasty and R stent placement who rpesented with malodorous discharge form L heel 1- Sepsis 2/2 Infected L heel ulcer. OM of the calcaneus and abscess formation on MRI . - Cont ertapenem .( allergic to PCN) - d/w Dr. waller today. bed side debridment and for OR on - wound cx with alph hemolytic strep - monitor CBC 2- PVD: severe disease at multiple levels, s/p stents to both sides - cont Asa and plavix - cont lipitor 3- DM : - cont SSI. need better control here , to help with heeling. - added levemir at HS yesterday - at dc she refuses to use insulin - hold HS levemir the on Tuesday yonny in preparation for sx on 4- N/V: possible gastroperesis exacerbated by infection. - declined any GI w/u 5- HTN: -cont coreg and norvasc. - will resume lisinopril 6- TITA: resolved. DVT Px HLOC
--- NOTE | 2017-06-28 20:35 | PN ---
Physical Exam: SUBJECTIVE: Patient seen and examined at bedside. Patient refusing gastric emptying study or any further GI workup at this time. GI notified. Explained the process of the procedure as well as the risks of refusing further GI workup. Patient verbalized understanding and wishes to focus on her foot ulcers during this admission. Remains compliant with all other areas of treatment. Patient continues to complain of pain and itching along her left ankle area. OBJECTIVE: Vital Signs Period Temp Pulse Resp BP Sys/Rahman Pulse Ox Last 24 Hr 97.9 F-99.2 F 85-94 20-20 122-160/60-86 99 GENERAL: The patient is awake, alert, and fully oriented, in no acute distress. HEAD: Normal with no signs of trauma. EYES: PERRL, extraocular movements intact, sclera anicteric, conjunctiva clear. No ptosis. NECK: Trachea midline, full range of motion, supple. LUNGS: Breath sounds equal, clear to auscultation bilaterally, no wheezes, no crackles, no accessory muscle use. HEART: Regular rate and rhythm, S1, S2 heard. Systolic ejection murmur appreciated at the right sternal border. ABDOMEN: Soft, nontender, nondistended, normoactive bowel sounds, no guarding, no rebound. EXTREMITIES: 2+ pulses, warm, well-perfused, no edema. NEUROLOGICAL: Cranial nerves II through X grossly intact. Normal speech, gait not observed. SKIN: Warm, dry, normal turgor, no rashes or lesions noted. Black eschars on b/ l heels. Eschars are malodorus, have purulent drainage and are painful to the touch. Induration with mild improvement today. Laboratory Results - last 24 hr 06/27/17 06/28/17 06/28/17 21:51 05:42 06:20 WBC 13.0 H RBC 2.78 L Hgb 8.0 L Hct 23.8 L MCV 85.7 MCH 28.6 MCHC 33.4 RDW 14.9 Plt Count 367 MPV 8.1 PT with INR INR Sodium Potassium Chloride Carbon Dioxide Anion Gap BUN Creatinine POC Glucometer 298 193 Random Glucose Calcium 06/28/17 06/28/17 06/28/17 06:20 06:20 11:33 WBC RBC Hgb Hct MCV MCH MCHC RDW Plt Count MPV PT with INR 12.50 INR 1.11 Sodium 136 Potassium 4.5 Chloride 105 Carbon Dioxide 25 Anion Gap 6 L BUN 18 Creatinine 0.9 POC Glucometer 150 Random Glucose 167 H Calcium 8.2 L 06/28/17 16:45 WBC RBC Hgb Hct MCV MCH MCHC RDW Plt Count MPV PT with INR INR Sodium Potassium Chloride Carbon Dioxide Anion Gap BUN Creatinine POC Glucometer 264 Random Glucose Calcium Active Medications Generic Name Dose Route Start Last Admin Trade Name Freq PRN Reason Stop Dose Admin Acetaminophen 325 mg 06/27/17 12:13 06/28/17 16:37 Tylenol - PO 06/30/17 12:12 325 mg Q4H PRN Administration PAIN LEVEL 6-10 Amlodipine Besylate 10 mg 06/24/17 10:00 06/28/17 10:06 Norvasc - PO 10 mg DAILY JESSICA Administration Aspirin 81 mg 06/24/17 10:00 06/28/17 10:06 Ecotrin - PO 81 mg DAILY J[facility] Administration Atorvastatin Calcium 80 mg 06/24/17 22:00 06/27/17 21:52 Lipitor - PO 80 mg HS [facility] Administration Carvedilol 12.5 mg 06/24/17 10:00 06/28/17 10:06 Coreg - PO 12.5 mg BID JESSICA Administration Clopidogrel Bisulfate 75 mg 06/24/17 10:00 06/28/17 10:06 Plavix - PO 75 mg DAILY [facility] Administration Collagenase 1 applic 06/25/17 12:30 06/28/17 10:08 Santyl - TP 1 applic DAILY [facility] Administration Docusate Sodium 100 mg 06/24/17 00:58 Colace - PO TID PRN CONSTIPATION Gabapentin 300 mg 06/24/17 06:00 06/28/17 14:04 Neurontin - PO 300 mg TID JESSICA Administration Heparin Sodium (Porcine) 5,000 unit 06/24/17 06:00 06/28/17 14:05 Heparin - SQ 5,000 unit TID [facility] Administration Ertapenem 1 gm/ Sodium 50 mls @ 50 mls/hr 06/25/17 13:00 06/28/17 10:08 Chloride IVPB 50 mls/hr DAILY [facility] Administration Protocol Insulin Aspart 1 vial 06/24/17 07:00 06/28/17 20:02 Novolog Vial Sliding Scale - SQ Not Given ACHS [facility] Protocol Insulin Detemir 10 units 06/27/17 22:00 04/23/18 21:53 Levemir Vial SQ 10 units HS [facility] Administration Lisinopril 20 mg 06/29/17 10:00 Prinivil PO DAILY JESSICA Ondansetron HCl 4 mg 06/24/17 00:41 Zofran Injection IVPUSH Q6H PRN NAUSEA AND/OR VOMITING Oxycodone HCl 5 mg 06/27/17 12:13 06/28/17 16:37 Roxicodone - PO 5 mg Q4H PRN Administration LEVEL 6-10 Pantoprazole Sodium 40 mg 06/24/17 11:45 06/28/17 10:06 Protonix - PO 40 mg DAILY JESSICA Administration ASSESSMENT/PLAN: 51yo F with PMHx of uncontrolled DM2 admitted for the treatment of sepsis 2/2 infected DM foot ulcer. #Sepsis 2/2 infected diabetic foot ulcer -ID consult -ertapenem 1gm daily (day 3) (4 days total abx) -pain control: PO percocet. -wound cx growing alpha hemolytic strep -MRI showed osteo and possible abscess on the right. -Podiatry performed bedside I&D today, for OR debridement w/ Dr. Byrnes this #Peripheral Vascular Dz -asa, plavix (holding in preparation for surgery, last admisnistered 04/30) #Nausea/Vomiting likely 2/2 DM gastroparesis -Patient refusing GI workup. -Zofran 4mg IV prn nausea #TITA likely 2/2 dehydration 2/2 sepsis/vomiting -IVF -avoid nephrotoxic drugs -holding home ACEI #HTN -hypertensive this AM -c/w home norvasc 10mg daily -c/w home coreg 12.5mg daily #DM -Adding 10u Levemir HS for better glycemic control -BGM ACHS -ISS ACHS -c/w home gabapentin 300 TID #FEN -no fluids indicated -monitor lytes. replete PRN -fat controlled DM diet; NPO past midnight #Prophylaxsis -Hep SQ 5ku TID # Dispo -Admit to inpatient med/surg Visit type - Emergency Visit Emergency Visit: Yes ED Registration Date: 06/23/17 Care time: The patient presented to the Emergency Department on the above date and was hospitalized for further evaluation of their emergent condition. - New Patient This patient is new to me today: No - Critical Care Critical Care patient: No
[2017-06-28] MEDS: ATORVASTATIN CA 80 MG TABLET (FP) PO SCH (21:55)
[2017-06-28] MEDS: INSULIN DETEMIR 100 UNITS/ML MDV SQ SCH (21:55)
[2017-06-29] MEDS: ACETAMINOPHEN 325 MG TABLET (FP) PO PRN ×5 (02:00→21:54)
[2017-06-29] MEDS: oxyCODONE HCL 5 MG TABLET PO PRN ×5 (02:01→21:55)
[2017-06-29] MEDS: HEPARIN NA (PORCINE) 5,000 UNITS/ML 1ML VIAL SQ SCH ×3 (06:30→21:57)
[2017-06-29] MEDS: GABAPENTIN 300 MG CAPSULE (FP) PO SCH ×3 (06:31→21:54)
[2017-06-29] MEDS: INSULIN SLIDING SCALE (NOVOLOG) 1 VIAL SQ SCH ×4 (06:48→21:56)
[2017-06-29 07:42] LABS: BASO % 0.9 % (0-2.0); EOS % 2.9 % (0-4.5); HEMATOCRIT 23.7 % (32.4-45.2); HEMOGLOBIN 7.9 GM/dL (10.7-15.3); LYMPH % 16.8 % (8-40); MCH 28.7 pg (25.7-33.7); MCHC 33.5 g/dl (32.0-36.0); MEAN CELL VOLUME 85.7 fl (80-96); MEAN PLT VOLUME 7.8 fl (7.5-11.1); MONO % 8.7 % (3.8-10.2); NEUT % 70.7 % (42.8-82.8); PLATELET COUNT 407 K/MM3 (134-434); RBC 2.77 M/mm3 (3.60-5.2); RDW 15.2 % (11.6-15.6); WHITE BLOOD COUNT 12.7 K/mm3 (4.0-10.0)
--- NOTE | 2017-06-29 09:34 | PN ---
Physical Exam: SUBJECTIVE: Patient seen and examined at bedside. No new events. Pain controlled. For OR debridement in AM OBJECTIVE: Vital Signs Period Temp Pulse Resp BP Sys/Rahman Pulse Ox Last 24 Hr 98 F-98.7 F 85-100 20-20 122-134/60-76 98 GENERAL: The patient is awake, alert, and fully oriented, in no acute distress. HEAD: Normal with no signs of trauma. EYES: PERRL, extraocular movements intact, sclera anicteric, conjunctiva clear. No ptosis. NECK: Trachea midline, full range of motion, supple. LUNGS: Breath sounds equal, clear to auscultation bilaterally, no wheezes, no crackles, no accessory muscle use. HEART: Regular rate and rhythm, S1, S2 heard. Systolic ejection murmur appreciated at the right sternal border. ABDOMEN: Soft, nontender, nondistended, normoactive bowel sounds, no guarding, no rebound. EXTREMITIES: 2+ pulses, warm, well-perfused, no edema. NEUROLOGICAL: Cranial nerves II through X grossly intact. Normal speech, gait not observed. SKIN: Warm, dry, normal turgor, no rashes or lesions noted. Both heels wrapped in gauze. No drainage from around dressing. Laboratory Results - last 24 hr 06/28/17 06/28/17 06/28/17 11:33 16:45 21:59 WBC RBC Hgb Hct MCV MCH MCHC RDW Plt Count MPV Neutrophils % Lymphocytes % Monocytes % Eosinophils % Basophils % POC Glucometer 150 264 223 C-Reactive Protein 06/29/17 06/29/17 06/29/17 06:20 06:20 06:35 WBC 12.7 H RBC 2.77 L Hgb 7.9 L Hct 23.7 L MCV 85.7 MCH 28.7 MCHC 33.5 RDW 15.2 Plt Count 407 MPV 7.8 Neutrophils % 70.7 Lymphocytes % 16.8 D Monocytes % 8.7 Eosinophils % 2.9 Basophils % 0.9 POC Glucometer 174 C-Reactive Protein 12.6 H Active Medications Generic Name Dose Route Start Last Admin Trade Name Freq PRN Reason Stop Dose Admin Acetaminophen 325 mg 06/27/17 12:13 06/29/17 06:31 Tylenol - PO 06/30/17 12:12 325 mg Q4H PRN Administration PAIN LEVEL 6-10 Amlodipine Besylate 10 mg 06/24/17 10:00 06/28/17 10:06 Norvasc - PO 10 mg DAILY JESSICA Administration Aspirin 81 mg 06/24/17 10:00 06/28/17 10:06 Ecotrin - PO 81 mg DAILY [facility] Administration Atorvastatin Calcium 80 mg 06/24/17 22:00 06/28/17 21:55 Lipitor - PO 80 mg HS JESSICA Administration Carvedilol 12.5 mg 06/24/17 10:00 06/28/17 21:55 Coreg - PO 12.5 mg BID [facility] Administration Clopidogrel Bisulfate 75 mg 06/24/17 10:00 06/28/17 10:06 Plavix - PO 75 mg DAILY [facility] Administration Collagenase 1 applic 06/25/17 12:30 06/28/17 10:08 Santyl - TP 1 applic DAILY [facility] Administration Docusate Sodium 100 mg 06/24/17 00:58 Colace - PO TID PRN CONSTIPATION Gabapentin 300 mg 06/24/17 06:00 06/29/17 06:31 Neurontin - PO 300 mg TID [facility] Administration Heparin Sodium (Porcine) 5,000 unit 06/24/17 06:00 06/29/17 06:30 Heparin - SQ 5,000 unit TID [facility] Administration Ertapenem 1 gm/ Sodium 50 mls @ 50 mls/hr 06/25/17 13:00 06/28/17 10:08 Chloride IVPB 50 mls/hr DAILY [facility] Administration Protocol Insulin Aspart 1 vial 06/24/17 07:00 06/29/17 06:48 Novolog Vial Sliding Scale - SQ 2 units ACHS [facility] Administration Protocol Insulin Detemir 10 units 06/27/17 22:00 06/28/17 21:55 Levemir Vial SQ 10 units HS [facility] Administration Lisinopril 20 mg 06/29/17 10:00 Prinivil PO DAILY [facility] Ondansetron HCl 4 mg 06/24/17 00:41 Zofran Injection IVPUSH Q6H PRN NAUSEA AND/OR VOMITING Oxycodone HCl 5 mg 06/27/17 12:13 06/29/17 06:31 Roxicodone - PO 5 mg Q4H PRN Administration LEVEL 6-10 Pantoprazole Sodium 40 mg 06/24/17 11:45 06/28/17 10:06 Protonix - PO 40 mg DAILY JESSICA Administration ASSESSMENT/PLAN: 51yo F with PMHx of uncontrolled DM2 admitted for the treatment of sepsis 2/2 infected DM foot ulcer. #Sepsis 2/2 infected diabetic foot ulcer -ID consult -ertapenem 1gm daily (day 5) (6 days total abx) -pain control: PO percocet. -wound cx growing alpha hemolytic strep -MRI showed osteo and possible abscess on the right. -for OR debridement w/ Dr. Byrnes tomorrow -AM preop labs -NPO past midnight. #Peripheral Vascular Dz -asa, plavix (holding in preparation for surgery, last administered 04/30) #Nausea/Vomiting likely 2/2 DM gastroparesis -Patient refusing GI workup. -Zofran 4mg IV prn nausea #TITA likely 2/2 dehydration 2/2 sepsis/vomiting -IVF -avoid nephrotoxic drugs -holding home ACEI #HTN -hypertensive this AM -c/w home norvasc 10mg daily -c/w home coreg 12.5mg daily #DM -10u Levemir HS for better glycemic control -BGM ACHS -ISS ACHS -c/w home gabapentin 300 TID #FEN -no fluids indicated -monitor lytes. replete PRN -fat controlled DM diet; NPO past midnight #Prophylaxsis -Hep SQ 5ku TID # Dispo -Admit to inpatient med/surg Visit type - Emergency Visit Emergency Visit: Yes ED Registration Date: 06/23/17 Care time: The patient presented to the Emergency Department on the above date and was hospitalized for further evaluation of their emergent condition. - New Patient This patient is new to me today: No - Critical Care Critical Care patient: No
[2017-06-29] MEDS: CARVEDILOL 12.5 MG TABLET (FP) PO SCH ×2 (10:27→21:54)
[2017-06-29] MEDS: LISINOPRIL 20 MG TABLET (FP) PO SCH (10:27)
[2017-06-29] MEDS: amLODIPine BESYLATE 10 MG TABLET (FP) PO SCH (10:27)
[2017-06-29] MEDS: PANTOPRAZOLE 40 MG TABLET (FP) PO SCH (10:28)
[2017-06-29] MEDS: ERTAPENEM SODIUM 1 GM in SODIUM CHLORIDE 50 ML IVPB SCH (10:30)
[2017-06-29] MEDS ORDERED: INSULIN (NOVOLOG) ASPART 100 UNITS/ML 10ML VIAL ONE (11:43)
--- NOTE | 2017-06-29 12:51 | PN ---
Progress Note, Physician History of Present Illness: debbrided by bedside by podiatry department plan for or on - Current Medication List Current Medications: Active Medications Acetaminophen (Tylenol -) 325 mg PO Q4H PRN PRN Reason: PAIN LEVEL 6-10 Stop: 06/30/17 12:12 Last Admin: 06/29/17 10:29 Dose: 325 mg Amlodipine Besylate (Norvasc -) 10 mg PO DAILY [facility] Last Admin: 06/29/17 10:27 Dose: 10 mg Aspirin (Ecotrin -) 81 mg PO DAILY [facility] Last Admin: 06/28/17 10:06 Dose: 81 mg Atorvastatin Calcium (Lipitor -) 80 mg PO HS [facility] Last Admin: 06/28/17 21:55 Dose: 80 mg Carvedilol (Coreg -) 12.5 mg PO BID [facility] Last Admin: 06/29/17 10:27 Dose: 12.5 mg Clopidogrel Bisulfate (Plavix -) 75 mg PO DAILY [facility] Last Admin: 06/28/17 10:06 Dose: 75 mg Collagenase (Santyl -) 1 applic TP DAILY [facility] Last Admin: 06/28/17 10:08 Dose: 1 applic Docusate Sodium (Colace -) 100 mg PO TID PRN PRN Reason: CONSTIPATION Gabapentin (Neurontin -) 300 mg PO TID [facility] Last Admin: 06/29/17 06:31 Dose: 300 mg Heparin Sodium (Porcine) (Heparin -) 5,000 unit SQ TID [facility] Last Admin: 06/29/17 06:30 Dose: 5,000 unit Ertapenem 1 gm/ Sodium (Chloride) 50 mls @ 50 mls/hr IVPB DAILY [facility] PRN Reason: Protocol Last Admin: 06/29/17 10:30 Dose: 50 mls/hr Insulin Aspart (Novolog Vial Sliding Scale -) 1 vial SQ ACHS [facility] PRN Reason: Protocol Last Admin: 06/29/17 12:19 Dose: 2 units Insulin Detemir (Levemir Vial) 10 units SQ HS [facility] Last Admin: 06/28/17 21:55 Dose: 10 units Lisinopril (Prinivil) 20 mg PO DAILY [facility] Last Admin: 06/29/17 10:27 Dose: 20 mg Ondansetron HCl (Zofran Injection) 4 mg IVPUSH Q6H PRN PRN Reason: NAUSEA AND/OR VOMITING Oxycodone HCl (Roxicodone -) 5 mg PO Q4H PRN PRN Reason: LEVEL 6-10 Last Admin: 06/29/17 10:28 Dose: 5 mg Pantoprazole Sodium (Protonix -) 40 mg PO DAILY [facility] Last Admin: 06/29/17 10:28 Dose: 40 mg - Objective Vital Signs: Vital Signs Temperature 99.8 F H 06/29/17 10:00 Pulse Rate 96 H 06/29/17 10:00 Respiratory Rate 18 06/29/17 10:00 Blood Pressure 145/74 06/29/17 10:00 O2 Sat by Pulse Oximetry (%) 98 06/28/17 21:00 Constitutional: Yes: Calm, Mild Distress Cardiovascular: Yes: Regular Rate and Rhythm Respiratory: Yes: Regular, CTA Bilaterally Gastrointestinal: Yes: Normal Bowel Sounds, Soft Musculoskeletal: Yes: Other Extremities: Yes: Other Wound/Incision: Yes: Dressing Dry and Intact Neurological: Yes: Alert, Oriented Psychiatric: Yes: Alert, Oriented Labs: CBC, BMP 06/29/17 06:20 06/28/17 06:20 INR, PTT INR 1.11 (0.82-1.09) 06/28/17 06:20 Assessment/Plan Problem List - Problems (1) Gastroparesis Code(s): K31.84 - GASTROPARESIS (2) Diabetic foot ulcer Code(s): E11.621 - TYPE 2 DIABETES MELLITUS WITH FOOT ULCER; L97.509 - NON- PRESSURE CHRONIC ULCER OTH PRT UNSP FOOT W UNSP SEVERITY (3) Diabetic gastroparesis associated with type 2 diabetes mellitus Code(s): E11.43 - TYPE 2 DIABETES W DIABETIC AUTONOMIC (POLY)NEUROPATHY; K31.84 - GASTROPARESIS (4) Diabetic neuropathy with neurologic complication Code(s): E11.40 - TYPE 2 DIABETES MELLITUS WITH DIABETIC NEUROPATHY, UNSP; E11.49 - TYPE 2 DIABETES W OTH DIABETIC NEUROLOGICAL COMPLICATION (5) Nausea & vomiting Code(s): R11.2 - NAUSEA WITH VOMITING, UNSPECIFIED imaging reports noted recent esr and crp noted plan patient to continue with current abx will need it for long time await for debridement
--- NOTE | 2017-06-29 12:53 | PN ---
Teaching Attending Note Name of Resident: Shoaib Chris ATTENDING PHYSICIAN STATEMENT I saw and evaluated the patient. I reviewed the resident's note and discussed the case with the resident. I agree with the resident's findings and plan as documented. SUBJECTIVE: No complaints. OBJECTIVE: Vital Signs Period Temp Pulse Resp BP Sys/Rahman Pulse Ox Last 24 Hr 98 F-99.8 F 85-100 18-20 122-145/60-76 98 HEART: S1S2, RRR LUNGS: Clear ABDOMEN: Soft, non-tender, non-distended, normal BS EXTREMITIES: No edema. Right heel ulcer with necrotic eschar. Left heel ulcer with necrotic eschar, purulent drainage, surrounding erythema and tenderness Laboratory Results - last 24 hr 06/28/17 06/28/17 06/29/17 16:45 21:59 06:20 WBC RBC Hgb Hct MCV MCH MCHC RDW Plt Count MPV Neutrophils % Lymphocytes % Monocytes % Eosinophils % Basophils % ESR POC Glucometer 264 223 C-Reactive Protein 12.6 H 06/29/17 06/29/17 06/29/17 06:20 06:20 06:35 WBC 12.7 H RBC 2.77 L Hgb 7.9 L Hct 23.7 L MCV 85.7 MCH 28.7 MCHC 33.5 RDW 15.2 Plt Count 407 MPV 7.8 Neutrophils % 70.7 Lymphocytes % 16.8 D Monocytes % 8.7 Eosinophils % 2.9 Basophils % 0.9 ESR > 140 H POC Glucometer 174 C-Reactive Protein 06/29/17 11:35 WBC RBC Hgb Hct MCV MCH MCHC RDW Plt Count MPV Neutrophils % Lymphocytes % Monocytes % Eosinophils % Basophils % ESR POC Glucometer 155 C-Reactive Protein Current Medications Generic Name Dose Route Start Last Admin Trade Name Freq PRN Reason Stop Dose Admin Acetaminophen 325 mg 06/27/17 12:13 06/29/17 10:29 Tylenol - PO 06/30/17 12:12 325 mg Q4H PRN Administration PAIN LEVEL 6-10 Amlodipine Besylate 10 mg 06/24/17 10:00 06/29/17 10:27 Norvasc - PO 10 mg DAILY [facility] Administration Aspirin 81 mg 06/24/17 10:00 06/28/17 10:06 Ecotrin - PO 81 mg DAILY [facility] Administration Atorvastatin Calcium 80 mg 06/24/17 22:00 06/28/17 21:55 Lipitor - PO 80 mg HS [facility] Administration Carvedilol 12.5 mg 06/24/17 10:00 06/29/17 10:27 Coreg - PO 12.5 mg BID [facility] Administration Clopidogrel Bisulfate 75 mg 06/24/17 10:00 06/28/17 10:06 Plavix - PO 75 mg DAILY [facility] Administration Collagenase 1 applic 06/25/17 12:30 06/28/17 10:08 Santyl - TP 1 applic DAILY [facility] Administration Docusate Sodium 100 mg 06/24/17 00:58 Colace - PO TID PRN CONSTIPATION Gabapentin 300 mg 06/24/17 06:00 06/29/17 06:31 Neurontin - PO 300 mg TID [facility] Administration Heparin Sodium (Porcine) 5,000 unit 06/24/17 06:00 06/29/17 06:30 Heparin - SQ 5,000 unit TID [facility] Administration Ertapenem 1 gm/ Sodium 50 mls @ 50 mls/hr 06/25/17 13:00 06/29/17 10:30 Chloride IVPB 50 mls/hr DAILY [facility] Administration Protocol Insulin Aspart 1 vial 06/24/17 07:00 06/29/17 12:19 Novolog Vial Sliding Scale - SQ 2 units ACHS [facility] Administration Protocol Insulin Detemir 10 units 06/27/17 22:00 06/28/17 21:55 Levemir Vial SQ 10 units HS [facility] Administration Lisinopril 20 mg 06/29/17 10:00 06/29/17 10:27 Prinivil PO 20 mg DAILY [facility] Administration Ondansetron HCl 4 mg 06/24/17 00:41 Zofran Injection IVPUSH Q6H PRN NAUSEA AND/OR VOMITING Oxycodone HCl 5 mg 06/27/17 12:13 06/29/17 10:28 Roxicodone - PO 5 mg Q4H PRN Administration LEVEL 6-10 Pantoprazole Sodium 40 mg 06/24/17 11:45 06/29/17 10:28 Protonix - PO 40 mg DAILY [facility] Administration ASSESSMENT AND PLAN: This is a 52 year old woman with a history of HTN, type 2 DM, PAD, depression who presented to the ED with pain in her left heel and drainage from a left heel ulcer. 1. Sepsis secondary to infected left heel ulcer with abscess and osteomyelitis of calcaneus - Continue Invanz - Plan for debridement tomorrow 2. PAD - Continue Plavix, Lipitor 3. Type 2 DM with diabetic peripheral neuropathy - Continue Levemir, Novolog sliding scale, Neurontin - Patient refusing insulin at home 4. HTN - Continue Lisinopril, Coreg, Norvasc 5. Acute kidney injury - Resolved 6. Anemia, likely secondary to sepsis and chronic illness - Hemoglobin stable
[2017-06-29] MEDS: COLLAGENASE CLOSTRIDIUM HIST. 30 GRAMS TUBE TP SCH (14:30)
[2017-06-29] MEDS: INSULIN DETEMIR 100 UNITS/ML MDV SQ SCH (21:56)
[2017-06-29] MEDS: ATORVASTATIN CA 80 MG TABLET (FP) PO SCH (21:56)
[2017-06-30] MEDS: ACETAMINOPHEN 325 MG TABLET (FP) PO PRN (04:45)
[2017-06-30] MEDS: oxyCODONE HCL 5 MG TABLET PO PRN ×3 (04:46→22:30)
[2017-06-30] MEDS: HEPARIN NA (PORCINE) 5,000 UNITS/ML 1ML VIAL SQ SCH ×2 (06:25→22:07)
[2017-06-30] MEDS: INSULIN SLIDING SCALE (NOVOLOG) 1 VIAL SQ SCH ×4 (06:27→22:06)
[2017-06-30] MEDS: GABAPENTIN 300 MG CAPSULE (FP) PO SCH ×3 (06:27→22:08)
[2017-06-30 08:29] LABS: BASO % 0.7 % (0-2.0); EOS % 1.6 % (0-4.5); HEMATOCRIT 22.1 % (32.4-45.2); HEMOGLOBIN 7.4 GM/dL (10.7-15.3); LYMPH % 14.5 % (8-40); MCH 28.5 pg (25.7-33.7); MCHC 33.2 g/dl (32.0-36.0); MEAN CELL VOLUME 85.8 fl (80-96); MEAN PLT VOLUME 8.4 fl (7.5-11.1); MONO % 7.8 % (3.8-10.2); NEUT % 75.4 % (42.8-82.8); PLATELET COUNT 430 K/MM3 (134-434); RBC 2.58 M/mm3 (3.60-5.2); RDW 15.3 % (11.6-15.6); WHITE BLOOD COUNT 16.6 K/mm3 (4.0-10.0)
[2017-06-30 08:57] LABS: INR 1.09 (0.82-1.09); PROTHROMBIN TIME (PATIENT) 12.3 SEC (9.7-13.0)
[2017-06-30 09:02] LABS: ANION GAP 10 (8-16); BLOOD UREA NITROGEN 26 mg/dL (7-18); CALCIUM 8.6 mg/dL (8.5-10.1); CHLORIDE 101 mmol/L (98-107); CO2 26 mmol/L (21-32); CREATININE 1.1 mg/dL (0.55-1.02); GLUCOSE,RANDOM 188 mg/dL (74-106); MAGNESIUM 1.8 mg/dL (1.8-2.4); PHOSPHOROUS 4.1 mg/dL (2.5-4.9); POTASSIUM 4.4 mmol/L (3.5-5.1); SODIUM 137 mmol/L (136-145)
[2017-06-30] MEDS ORDERED: PT OWN MED DRAWER 7, Y5N ONE (09:51)
[2017-06-30] MEDS: CARVEDILOL 12.5 MG TABLET (FP) PO SCH ×2 (10:14→22:07)
[2017-06-30] MEDS: ERTAPENEM SODIUM 1 GM in SODIUM CHLORIDE 50 ML IVPB SCH (10:14)
[2017-06-30] MEDS: LISINOPRIL 20 MG TABLET (FP) PO SCH (10:15)
[2017-06-30] MEDS: PANTOPRAZOLE 40 MG TABLET (FP) PO SCH (10:15)
[2017-06-30] MEDS: amLODIPine BESYLATE 10 MG TABLET (FP) PO SCH (10:15)
[2017-06-30] MEDS: COLLAGENASE CLOSTRIDIUM HIST. 30 GRAMS TUBE TP SCH (10:15)
--- NOTE | 2017-06-30 13:55 | PN ---
Physical Exam: SUBJECTIVE: Patient seen and examined at bedside. no events overnight, patient states that her left heel continues to bother her, with increased inching and swelling. for OR debridement with dr porter tomorrow. OBJECTIVE: Vital Signs Period Temp Pulse Resp BP Sys/Rahman Pulse Ox Last 24 Hr 99.1 F-101.6 F 87-101 18-20 123-151/50-95 95-98 GENERAL: The patient is awake, alert, and fully oriented, in no acute distress. HEAD: Normal with no signs of trauma. NECK: Trachea midline, full range of motion, supple. LUNGS: Breath sounds equal, clear to auscultation bilaterally, no wheezes, no crackles, no accessory muscle use. HEART: Regular rate and rhythm, S1, S2 heard. Systolic ejection murmur appreciated at the right sternal border. ABDOMEN: Soft, nontender, nondistended, normoactive bowel sounds, no guarding, no rebound. EXTREMITIES: 2+ pulses, warm, well-perfused, no edema. NEUROLOGICAL: Cranial nerves II through X grossly intact. Normal speech, gait not observed. SKIN: Warm, dry, normal turgor, no rashes or lesions noted. Black eschars on b/ l heels. Eschars are malodorus, have purulent drainage and are painful to the touch. Laboratory Results - last 24 hr 06/29/17 06/29/17 06/30/17 16:30 21:49 06:06 WBC RBC Hgb Hct MCV MCH MCHC RDW Plt Count MPV Neutrophils % Lymphocytes % Monocytes % Eosinophils % Basophils % PT with INR INR Sodium Potassium Chloride Carbon Dioxide Anion Gap BUN Creatinine POC Glucometer 208 236 213 Random Glucose Calcium Phosphorus Magnesium 06/30/17 06/30/17 06/30/17 07:00 07:00 07:00 WBC 16.6 H D RBC 2.58 L Hgb 7.4 L Hct 22.1 L MCV 85.8 MCH 28.5 MCHC 33.2 RDW 15.3 Plt Count 430 MPV 8.4 Neutrophils % 75.4 Lymphocytes % 14.5 Monocytes % 7.8 Eosinophils % 1.6 Basophils % 0.7 PT with INR 12.30 INR 1.09 Sodium 137 Potassium 4.4 Chloride 101 Carbon Dioxide 26 Anion Gap 10 BUN 26 H Creatinine 1.1 H POC Glucometer Random Glucose 188 H Calcium 8.6 Phosphorus 4.1 Magnesium 1.8 06/30/17 12:06 WBC RBC Hgb Hct MCV MCH MCHC RDW Plt Count MPV Neutrophils % Lymphocytes % Monocytes % Eosinophils % Basophils % PT with INR INR Sodium Potassium Chloride Carbon Dioxide Anion Gap BUN Creatinine POC Glucometer 221 Random Glucose Calcium Phosphorus Magnesium Active Medications Generic Name Dose Route Start Last Admin Trade Name Freq PRN Reason Stop Dose Admin Amlodipine Besylate 10 mg 06/24/17 10:00 06/30/17 10:15 Norvasc - PO 10 mg DAILY [facility] Administration Aspirin 81 mg 06/24/17 10:00 06/28/17 10:06 Ecotrin - PO 81 mg DAILY [facility] Administration Atorvastatin Calcium 80 mg 06/24/17 22:00 06/29/17 21:56 Lipitor - PO 80 mg HS [facility] Administration Carvedilol 12.5 mg 06/24/17 10:00 06/30/17 10:14 Coreg - PO 12.5 mg BID [facility] Administration Clopidogrel Bisulfate 75 mg 06/24/17 10:00 06/28/17 10:06 Plavix - PO 75 mg DAILY [facility] Administration Collagenase 1 applic 06/25/17 12:30 06/30/17 10:15 Santyl - TP 1 applic DAILY [facility] Administration Docusate Sodium 100 mg 06/24/17 00:58 Colace - PO TID PRN CONSTIPATION Gabapentin 300 mg 06/24/17 06:00 06/30/17 06:27 Neurontin - PO 300 mg TID [facility] Administration Heparin Sodium (Porcine) 5,000 unit 06/24/17 06:00 06/30/17 06:25 Heparin - SQ Not Given TID [facility] Ertapenem 1 gm/ Sodium 50 mls @ 50 mls/hr 06/25/17 13:00 06/30/17 10:14 Chloride IVPB 50 mls/hr DAILY [facility] Administration Protocol Insulin Aspart 1 vial 06/24/17 07:00 06/30/17 12:20 Novolog Vial Sliding Scale - SQ 4 units ACHS [facility] Administration Protocol Insulin Detemir 10 units 06/27/17 22:00 06/29/17 21:56 Levemir Vial SQ Not Given HS [facility] Lisinopril 20 mg 06/29/17 10:00 06/30/17 10:15 Prinivil PO 20 mg DAILY [facility] Administration Ondansetron HCl 4 mg 06/24/17 00:41 Zofran Injection IVPUSH Q6H PRN NAUSEA AND/OR VOMITING Oxycodone HCl 5 mg 06/27/17 12:13 06/30/17 12:25 Roxicodone - PO 5 mg Q4H PRN Administration LEVEL 6-10 Pantoprazole Sodium 40 mg 06/24/17 11:45 06/30/17 10:15 Protonix - PO Not Given DAILY [facility] ASSESSMENT/PLAN: 51yo F with PMHx of uncontrolled DM2 admitted for the treatment of sepsis 2/2 infected DM foot ulcer. #Sepsis 2/2 infected diabetic foot ulcer -ID consult -ertapenem 1gm daily (day 6) (7 days total abx) -pain control: PO percocet. -wound cx growing alpha hemolytic strep -MRI showed osteo and possible abscess on the right. -for OR debridement w/ Dr. Porter tomorrow #Peripheral Vascular Dz -asa, plavix (holding in preparation for surgery, last administered 04/30) #Nausea/Vomiting likely 2/2 DM gastroparesis -Patient refusing GI workup. -Zofran 4mg IV prn nausea #TITA likely 2/2 dehydration 2/2 sepsis/vomiting -IVF -avoid nephrotoxic drugs -holding home ACEI #HTN -hypertensive this AM -c/w home norvasc 10mg daily -c/w home coreg 12.5mg daily #DM -10u Levemir HS for better glycemic control -BGM ACHS -ISS ACHS -c/w home gabapentin 300 TID #FEN -no fluids indicated -monitor lytes. replete PRN -NPO past midnight #Prophylaxsis -Hep SQ 5ku TID # Dispo -Admit to inpatient med/surg Visit type - Emergency Visit Emergency Visit: Yes ED Registration Date: 06/23/17 Care time: The patient presented to the Emergency Department on the above date and was hospitalized for further evaluation of their emergent condition. - New Patient This patient is new to me today: No - Critical Care Critical Care patient: No - Discharge Referral Referred to [facility] Med P.C.: No
--- NOTE | 2017-06-30 14:52 | PN ---
Progress Note, Physician History of Present Illness: patient stable plan for debridement no other issues - Current Medication List Current Medications: Active Medications Amlodipine Besylate (Norvasc -) 10 mg PO DAILY [facility] Last Admin: 06/30/17 10:15 Dose: 10 mg Aspirin (Ecotrin -) 81 mg PO DAILY [facility] Last Admin: 06/28/17 10:06 Dose: 81 mg Atorvastatin Calcium (Lipitor -) 80 mg PO HS [facility] Last Admin: 06/29/17 21:56 Dose: 80 mg Carvedilol (Coreg -) 12.5 mg PO BID [facility] Last Admin: 06/30/17 10:14 Dose: 12.5 mg Clopidogrel Bisulfate (Plavix -) 75 mg PO DAILY [facility] Last Admin: 06/28/17 10:06 Dose: 75 mg Collagenase (Santyl -) 1 applic TP DAILY [facility] Last Admin: 06/30/17 10:15 Dose: 1 applic Docusate Sodium (Colace -) 100 mg PO TID PRN PRN Reason: CONSTIPATION Gabapentin (Neurontin -) 300 mg PO TID [facility] Last Admin: 06/30/17 14:00 Dose: Not Given Heparin Sodium (Porcine) (Heparin -) 5,000 unit SQ TID [facility] Last Admin: 06/30/17 06:25 Dose: Not Given Ertapenem 1 gm/ Sodium (Chloride) 50 mls @ 50 mls/hr IVPB DAILY [facility] PRN Reason: Protocol Last Admin: 06/30/17 10:14 Dose: 50 mls/hr Insulin Aspart (Novolog Vial Sliding Scale -) 1 vial SQ ACHS [facility] PRN Reason: Protocol Last Admin: 06/30/17 12:20 Dose: 4 units Insulin Detemir (Levemir Vial) 10 units SQ [facility] Last Admin: 06/29/17 21:56 Dose: Not Given Lisinopril (Prinivil) 20 mg PO DAILY [facility] Last Admin: 06/30/17 10:15 Dose: 20 mg Ondansetron HCl (Zofran Injection) 4 mg IVPUSH Q6H PRN PRN Reason: NAUSEA AND/OR VOMITING Oxycodone HCl (Roxicodone -) 5 mg PO Q4H PRN PRN Reason: LEVEL 6-10 Last Admin: 06/30/17 12:25 Dose: 5 mg Pantoprazole Sodium (Protonix -) 40 mg PO DAILY [facility] Last Admin: 06/30/17 10:15 Dose: Not Given - Objective Vital Signs: Vital Signs Temperature 99.4 F 06/30/17 09:13 Pulse Rate 95 H 06/30/17 09:13 Respiratory Rate 20 06/30/17 09:13 Blood Pressure 123/95 06/30/17 09:13 O2 Sat by Pulse Oximetry (%) 95 06/30/17 09:00 Constitutional: Yes: No Distress, Calm Cardiovascular: Yes: Regular Rate and Rhythm Respiratory: Yes: Regular, CTA Bilaterally Gastrointestinal: Yes: Normal Bowel Sounds, Soft Musculoskeletal: Yes: WNL Extremities: Yes: Other Wound/Incision: Yes: Dressing Dry and Intact Neurological: Yes: Alert, Oriented Psychiatric: Yes: Alert, Oriented Labs: CBC, BMP 06/30/17 07:00 06/30/17 07:00 INR, PTT INR 1.09 (0.82-1.09) 06/30/17 07:00 Assessment/Plan Problem List - Problems (1) Gastroparesis Code(s): K31.84 - GASTROPARESIS (2) Diabetic foot ulcer Code(s): E11.621 - TYPE 2 DIABETES MELLITUS WITH FOOT ULCER; L97.509 - NON- PRESSURE CHRONIC ULCER OTH PRT UNSP FOOT W UNSP SEVERITY (3) Diabetic gastroparesis associated with type 2 diabetes mellitus Code(s): E11.43 - TYPE 2 DIABETES W DIABETIC AUTONOMIC (POLY)NEUROPATHY; K31.84 - GASTROPARESIS (4) Diabetic neuropathy with neurologic complication Code(s): E11.40 - TYPE 2 DIABETES MELLITUS WITH DIABETIC NEUROPATHY, UNSP; E11.49 - TYPE 2 DIABETES W OTH DIABETIC NEUROLOGICAL COMPLICATION (5) Nausea & vomiting Code(s): R11.2 - NAUSEA WITH VOMITING, UNSPECIFIED plan patient to continue with current abx will need it for long time await for debridement continue following esr and crp
[2017-06-30] MEDS ORDERED: LIDOCAINE HCL 1%, 10 MG/ML (20ML VIAL) ONE (16:09)
--- NOTE | 2017-06-30 19:19 | PN ---
Teaching Attending Note Name of Resident: Shoaib Chris ATTENDING PHYSICIAN STATEMENT I saw and evaluated the patient. I reviewed the resident's note and discussed the case with the resident. I agree with the resident's findings and plan as documented. SUBJECTIVE: Patient complains of pain in left heel. OBJECTIVE: Vital Signs Period Temp Pulse Resp BP Sys/Rahman Pulse Ox Last 24 Hr 97.8 F-101.6 F 86-101 20-20 123-151/70-95 95-98 HEART: S1S2, RRR LUNGS: Clear ABDOMEN: Soft, non-tender, non-distended, normal BS EXTREMITIES: No edema. Right heel ulcer with necrotic eschar. Left heel ulcer with necrotic eschar, purulent drainage, surrounding erythema and tenderness Laboratory Results - last 24 hr 06/29/17 06/30/17 06/30/17 21:49 06:06 07:00 WBC 16.6 H D RBC 2.58 L Hgb 7.4 L Hct 22.1 L MCV 85.8 MCH 28.5 MCHC 33.2 RDW 15.3 Plt Count 430 MPV 8.4 Neutrophils % 75.4 Lymphocytes % 14.5 Monocytes % 7.8 Eosinophils % 1.6 Basophils % 0.7 PT with INR INR Sodium Potassium Chloride Carbon Dioxide Anion Gap BUN Creatinine POC Glucometer 236 213 Random Glucose Calcium Phosphorus Magnesium 06/30/17 06/30/17 06/30/17 07:00 07:00 12:06 WBC RBC Hgb Hct MCV MCH MCHC RDW Plt Count MPV Neutrophils % Lymphocytes % Monocytes % Eosinophils % Basophils % PT with INR 12.30 INR 1.09 Sodium 137 Potassium 4.4 Chloride 101 Carbon Dioxide 26 Anion Gap 10 BUN 26 H Creatinine 1.1 H POC Glucometer 221 Random Glucose 188 H Calcium 8.6 Phosphorus 4.1 Magnesium 1.8 06/30/17 16:38 WBC RBC Hgb Hct MCV MCH MCHC RDW Plt Count MPV Neutrophils % Lymphocytes % Monocytes % Eosinophils % Basophils % PT with INR INR Sodium Potassium Chloride Carbon Dioxide Anion Gap BUN Creatinine POC Glucometer 173 Random Glucose Calcium Phosphorus Magnesium Current Medications Generic Name Dose Route Start Last Admin Trade Name Freq PRN Reason Stop Dose Admin Amlodipine Besylate 10 mg 06/24/17 10:00 06/30/17 10:15 Norvasc - PO 10 mg DAILY [facility] Administration Aspirin 81 mg 06/24/17 10:00 06/28/17 10:06 Ecotrin - PO 81 mg DAILY [facility] Administration Atorvastatin Calcium 80 mg 06/24/17 22:00 06/29/17 21:56 Lipitor - PO 80 mg HS [facility] Administration Carvedilol 12.5 mg 06/24/17 10:00 06/30/17 10:14 Coreg - PO 12.5 mg BID [facility] Administration Clopidogrel Bisulfate 75 mg 06/24/17 10:00 06/28/17 10:06 Plavix - PO 75 mg DAILY [facility] Administration Collagenase 1 applic 06/25/17 12:30 06/30/17 10:15 Santyl - TP 1 applic DAILY [facility] Administration Docusate Sodium 100 mg 06/24/17 00:58 Colace - PO TID PRN CONSTIPATION Gabapentin 300 mg 06/24/17 06:00 06/30/17 14:00 Neurontin - PO Not Given TID [facility] Heparin Sodium (Porcine) 5,000 unit 06/24/17 06:00 06/30/17 06:25 Heparin - SQ Not Given TID [facility] Ertapenem 1 gm/ Sodium 50 mls @ 50 mls/hr 06/25/17 13:00 06/30/17 10:14 Chloride IVPB 50 mls/hr DAILY [facility] Administration Protocol Insulin Aspart 1 vial 06/24/17 07:00 06/30/17 16:40 Novolog Vial Sliding Scale - SQ 2 units ACHS [facility] Administration Protocol Insulin Detemir 10 units 06/27/17 22:00 06/29/17 21:56 Levemir Vial SQ Not Given HS [facility] Lisinopril 20 mg 06/29/17 10:00 06/30/17 10:15 Prinivil PO 20 mg DAILY [facility] Administration Ondansetron HCl 4 mg 06/24/17 00:41 Zofran Injection IVPUSH Q6H PRN NAUSEA AND/OR VOMITING Oxycodone HCl 5 mg 06/27/17 12:13 06/30/17 12:25 Roxicodone - PO 5 mg Q4H PRN Administration LEVEL 6-10 Pantoprazole Sodium 40 mg 06/24/17 11:45 06/30/17 10:15 Protonix - PO Not Given DAILY [facility] ASSESSMENT AND PLAN: This is a 52 year old woman with a history of HTN, type 2 DM, PAD, depression who presented to the ED with pain in her left heel and drainage from a left heel ulcer. 1. Sepsis secondary to infected left heel ulcer with abscess and osteomyelitis of calcaneus - Continue Invanz - Plan for debridement tomorrow 2. PAD - Continue Plavix (on hold for debridement), Lipitor 3. Type 2 DM with diabetic peripheral neuropathy - Continue Levemir, Novolog sliding scale, Neurontin - Patient refusing insulin at home 4. HTN - Continue Lisinopril, Coreg, Norvasc 5. Acute kidney injury - Resolved 6. Anemia, likely secondary to sepsis and chronic illness
[2017-06-30] MEDS ORDERED: INSULIN (NOVOLOG) ASPART 100 UNITS/ML 10ML VIAL ONE (21:14)
[2017-06-30] MEDS: ATORVASTATIN CA 80 MG TABLET (FP) PO SCH (22:07)
[2017-06-30] MEDS: INSULIN DETEMIR 100 UNITS/ML MDV SQ SCH (22:08)
[2017-07-01] MEDS: HEPARIN NA (PORCINE) 5,000 UNITS/ML 1ML VIAL SQ SCH ×3 (06:14→21:59)
[2017-07-01] MEDS: GABAPENTIN 300 MG CAPSULE (FP) PO SCH ×3 (06:14→22:01)
[2017-07-01] MEDS: INSULIN SLIDING SCALE (NOVOLOG) 1 VIAL SQ SCH ×4 (06:29→22:01)
[2017-07-01 07:55] LABS: BASO % 0.9 % (0-2.0); EOS % 2.8 % (0-4.5); HEMATOCRIT 23.1 % (32.4-45.2); HEMOGLOBIN 7.9 GM/dL (10.7-15.3); LYMPH % 14.7 % (8-40); MEAN CELL VOLUME 85.2 fl (80-96); MONO % 11.2 % (3.8-10.2); NEUT % 70.4 % (42.8-82.8); PLATELET COUNT 412 K/MM3 (134-434); RBC 2.71 M/mm3 (3.60-5.2); RDW 14.5 % (11.6-15.6); WHITE BLOOD COUNT 14.7 K/mm3 (4.0-10.0)
[2017-07-01] MEDS ORDERED: PT OWN MED DRAWER 7, Y5N ONE (09:08)
[2017-07-01] MEDS ORDERED: MIDAZOLAM HCL 2 MG/2 ML SINGLE DOSE VIAL ONE ×2 (11:01)
[2017-07-01] MEDS ORDERED: PIPERACILLIN/TAZOBACTAM 3.375 GM VIAL IVPB ONE (11:10)
[2017-07-01] MEDS ORDERED: ERTAPENEM SODIUM 1 GM VIAL IVPB ONE (11:10)
--- NOTE | 2017-07-01 11:34 | OP ---
Operative Note - Note: Operative Date: 07/01/17 Pre-Operative Diagnosis: bl heel eschars Operation: Excisional debridement bl heels - skin, subcutaneous tissue Findings: cx's taken Post-Operative Diagnosis: Same as Pre-op Surgeon: Chato Byrnes Anesthesia: Fractional Estimated Blood Loss (mls): 5
[2017-07-01] MEDS ORDERED: ONDANSETRON 4 MG/2 ML VIAL IVPUSH PRN ×2 (11:41→11:57)
[2017-07-01] MEDS ORDERED: LACTATED RINGERS SOLUTION 1,000 ML IV SCH (11:45)
[2017-07-01] MEDS ORDERED: DOCUSATE SODIUM 100 MG CAPSULE (FP) PO PRN (11:57)
--- NOTE | 2017-07-01 13:13 | PN ---
Progress Note, Physician History of Present Illness: spiked temp yesterday patient debrided today by vascular - Current Medication List Current Medications: Active Medications Amlodipine Besylate (Norvasc -) 10 mg PO DAILY [facility] Aspirin (Ecotrin -) 81 mg PO DAILY [facility] Atorvastatin Calcium (Lipitor -) 80 mg PO HS [facility] Carvedilol (Coreg -) 12.5 mg PO BID [facility] Clopidogrel Bisulfate (Plavix -) 75 mg PO DAILY [facility] Collagenase (Santyl -) 1 applic TP DAILY [facility] Docusate Sodium (Colace -) 100 mg PO TID PRN PRN Reason: CONSTIPATION Fentanyl (Sublimaze Injection -) 50 mcg IVPUSH [id number] PRN PRN Reason: PAIN-PACU ORDER X 4 DOSES ONLY Last Admin: 07/01/17 12:00 Dose: 50 mcg Gabapentin (Neurontin -) 300 mg PO TID [facility] Heparin Sodium (Porcine) (Heparin -) 5,000 unit SQ TID [facility] Ertapenem 1 gm/ Sodium (Chloride) 50 mls @ 50 mls/hr IVPB DAILY [facility] PRN Reason: Protocol Lactated Ringer's (Lactated Ringers Solution) 1,000 mls @ 125 mls/hr IV ASDIR [facility] Insulin Aspart (Novolog Vial Sliding Scale -) 1 vial SQ ACHS [facility] PRN Reason: Protocol Insulin Detemir (Levemir Vial) 10 units SQ HS [facility] Lisinopril (Prinivil) 20 mg PO DAILY [facility] Ondansetron HCl (Zofran Injection) 4 mg IVPUSH Q6H PRN PRN Reason: NAUSEA AND/OR VOMITING Ondansetron HCl (Zofran Injection) 4 mg IVPUSH Q6H PRN PRN Reason: NAUSEA AND/OR VOMITING Oxycodone HCl (Roxicodone -) 5 mg PO Q4H PRN PRN Reason: LEVEL 6-10 Pantoprazole Sodium (Protonix -) 40 mg PO DAILY [facility] - Objective Vital Signs: Vital Signs Temperature 98.6 F 07/01/17 12:45 Pulse Rate 86 07/01/17 12:45 Respiratory Rate 16 07/01/17 12:45 Blood Pressure 147/78 07/01/17 12:45 O2 Sat by Pulse Oximetry (%) 100 07/01/17 12:45 Constitutional: Yes: No Distress, Calm Cardiovascular: Yes: Regular Rate and Rhythm Respiratory: Yes: Regular, CTA Bilaterally Gastrointestinal: Yes: Normal Bowel Sounds, Soft Musculoskeletal: Yes: WNL Extremities: Yes: Other Wound/Incision: Yes: Dressing Dry and Intact Neurological: Yes: Alert, Oriented Psychiatric: Yes: Alert, Oriented Labs: CBC, BMP 07/01/17 07:07 06/30/17 07:00 INR, PTT INR 1.09 (0.82-1.09) 06/30/17 07:00 Assessment/Plan Problem List - Problems (1) Gastroparesis Code(s): K31.84 - GASTROPARESIS (2) Diabetic foot ulcer Code(s): E11.621 - TYPE 2 DIABETES MELLITUS WITH FOOT ULCER; L97.509 - NON- PRESSURE CHRONIC ULCER OTH PRT UNSP FOOT W UNSP SEVERITY (3) Diabetic gastroparesis associated with type 2 diabetes mellitus Code(s): E11.43 - TYPE 2 DIABETES W DIABETIC AUTONOMIC (POLY)NEUROPATHY; K31.84 - GASTROPARESIS (4) Diabetic neuropathy with neurologic complication Code(s): E11.40 - TYPE 2 DIABETES MELLITUS WITH DIABETIC NEUROPATHY, UNSP; E11.49 - TYPE 2 DIABETES W OTH DIABETIC NEUROLOGICAL COMPLICATION (5) Nausea & vomiting Code(s): R11.2 - NAUSEA WITH VOMITING, UNSPECIFIED plan continue current abx debridement done monitor for fevers await for cx reports
[2017-07-01] MEDS: oxyCODONE HCL 5 MG TABLET PO PRN ×2 (15:22→22:06)
--- NOTE | 2017-07-01 16:18 | PN ---
Teaching Attending Note Name of Resident: Shoaib Chris ATTENDING PHYSICIAN STATEMENT I saw and evaluated the patient. I reviewed the resident's note and discussed the case with the resident. I agree with the resident's findings and plan as documented. SUBJECTIVE: Patient is awaiting transfer down to surgery as of rounds this am. She was a bit anxious about the surgery. OBJECTIVE: Last Vital Signs Temp Pulse Resp BP Pulse Ox 98.1 F 95 H 20 125/83 98 07/01/17 12:45 07/01/17 12:45 07/01/17 12:45 07/01/17 12:45 07/01/17 12:45 Awake, alert, oriented chest clear heart RR abd soft NT extrem: heels in dressings up to lower ankles, no erythema or fluctuance above the dressing, not taken down as transport arrived to take her to OR holding for debridement Laboratory Results - last 24 hr 06/30/17 06/30/17 07/01/17 16:38 22:01 06:26 WBC RBC Hgb Hct MCV MCH MCHC RDW Plt Count MPV Neutrophils % Lymphocytes % Monocytes % Eosinophils % Basophils % POC Glucometer 173 253 167 Serum , Qual 07/01/17 07/01/17 07/01/17 07:07 10:02 13:05 WBC 14.7 H RBC 2.71 L Hgb 7.9 L Hct 23.1 L MCV 85.2 MCH 29.0 MCHC 34.0 RDW 14.5 Plt Count 412 MPV 8.0 Neutrophils % 70.4 Lymphocytes % 14.7 Monocytes % 11.2 H Eosinophils % 2.8 Basophils % 0.9 POC Glucometer 159 Serum , Qual Negative ASSESSMENT AND PLAN: 52 y/o woman with HTN, DM, PAD, depression, non compliance with medical recommendations Here with bilateral heel ulcers, left heel ulcer with surrounding cellulitis and fluctuance infection of heel ulcer L>R on Invanz to OR now for debridement PAD, plavix held for OR today, lipitor DM, not agreeable to taking the insulin we are recommending despite our best efforts to convince her of the efficacy of these recommendations 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
[2017-07-01] MEDS: CARVEDILOL 12.5 MG TABLET (FP) PO SCH (21:59)
[2017-07-01] MEDS: INSULIN DETEMIR 100 UNITS/ML MDV SQ SCH (22:00)
[2017-07-01] MEDS: ATORVASTATIN CA 80 MG TABLET (FP) PO SCH (22:01)
--- NOTE | 2017-07-01 22:08 | OP ---
DATE OF OPERATION: 07/01/2017 PREOPERATIVE DIAGNOSIS: Bilateral heel ulcers with eschar. POSTOPERATIVE DIAGNOSIS: Bilateral heel ulcers with eschar. PROCEDURE: Excisional debridement of skin and subcutaneous tissue, bilateral heels. SURGEON: Chato Sharp DO ANESTHESIA: Fractional. BLOOD LOSS: 5 mL The patient is a 52-year-old female who comes in with bilateral heel eschars. She has had multiple angioplasties, had angioplasty in both her legs, trying to get more blood flow down to her heels. She has an eschar there. She had an MRI performed, which showed abscess/eschar, mainly behind the right heel. It was decided that she would need to have the eschars removed. Patient was consented for the procedure, understanding all risks, benefits, and alternatives, and the patient was brought to the operating room. DESCRIPTION OF PROCEDURE: Once in the operating room, she was laid on the operating table in supine manner, and bilateral heels were prepped and draped in sterile surgical manner. We then went ahead and took a number-15 blade, and we were able to take the eschar off of the right heel without injuring the fat pad below. Bovie electrocautery was used to control hemostasis. There was some pus that was found, and cultures were taken intraoperatively. The wound was then well irrigated. We then went ahead and went over to the left heel. In the same manner, using a 15 blade, we sharply debrided away the eschar from the fat pad underneath. Bovie electrocautery used to control hemostasis. We then irrigated both wounds copiously. Wet-to-dry dressings were placed with Kerlix. Patient tolerated the procedure with no complication. Patient transferred to PACU in stable condition. CHATO SHARP DO WOOD HEEL FLAP INSERTER/[id number]
--- NOTE | 2017-07-01 22:09 | PN ---
Physical Exam: SUBJECTIVE: Patient seen and examined at bedside. No new complaints. No new events. For OR debridment today. OBJECTIVE: Vital Signs Period Temp Pulse Resp BP Sys/Rahman Pulse Ox Last 24 Hr 98.1 F-98.7 F 86-95 16-20 125-156/61-83 98-100 GENERAL: The patient is awake, alert, and fully oriented, in no acute distress. HEAD: Normal with no signs of trauma. NECK: Trachea midline, full range of motion, supple. LUNGS: Breath sounds equal, clear to auscultation bilaterally, no wheezes, no crackles, no accessory muscle use. HEART: Regular rate and rhythm, S1, S2 heard. Systolic ejection murmur appreciated at the right sternal border. ABDOMEN: Soft, nontender, nondistended, normoactive bowel sounds, no guarding, no rebound. EXTREMITIES: 2+ pulses, warm, well-perfused, no edema. NEUROLOGICAL: Cranial nerves II through X grossly intact. Normal speech, gait not observed. SKIN: Warm, dry, normal turgor, no rashes or lesions noted. Feet wrapped b/l. No drainage or leakage through bandages. Laboratory Results - last 24 hr 06/30/17 07/01/17 07/01/17 22:01 06:26 07:07 WBC 14.7 H RBC 2.71 L Hgb 7.9 L Hct 23.1 L MCV 85.2 MCH 29.0 MCHC 34.0 RDW 14.5 Plt Count 412 MPV 8.0 Neutrophils % 70.4 Lymphocytes % 14.7 Monocytes % 11.2 H Eosinophils % 2.8 Basophils % 0.9 POC Glucometer 253 167 Serum , Qual 07/01/17 07/01/17 07/01/17 10:02 13:05 16:49 WBC RBC Hgb Hct MCV MCH MCHC RDW Plt Count MPV Neutrophils % Lymphocytes % Monocytes % Eosinophils % Basophils % POC Glucometer 159 221 Serum , Qual Negative Active Medications Generic Name Dose Route Start Last Admin Trade Name Freq PRN Reason Stop Dose Admin Amlodipine Besylate 10 mg 07/02/17 10:00 Norvasc - PO DAILY [facility] Aspirin 81 mg 07/02/17 10:00 Ecotrin - PO DAILY [facility] Atorvastatin Calcium 80 mg 07/01/17 22:00 07/01/17 22:01 Lipitor - PO 80 mg HS [facility] Administration Carvedilol 12.5 mg 07/01/17 22:00 07/01/17 21:59 Coreg - PO 12.5 mg BID [facility] Administration Clopidogrel Bisulfate 75 mg 07/02/17 10:00 Plavix - PO DAILY [facility] Collagenase 1 applic 07/02/17 10:00 Santyl - TP DAILY [facility] Docusate Sodium 100 mg 07/01/17 11:57 Colace - PO TID PRN CONSTIPATION Fentanyl 50 mcg 07/01/17 11:41 07/01/17 12:00 Sublimaze Injection - IVPUSH 50 mcg [id number] PRN Administration PAIN-PACU ORDER X 4 DOSES ONLY Gabapentin 300 mg 07/01/17 14:00 07/01/17 22:01 Neurontin - PO 300 mg TID [facility] Administration Heparin Sodium (Porcine) 5,000 unit 07/01/17 14:00 07/01/17 21:59 Heparin - SQ 5,000 unit TID [facility] Administration Ertapenem 1 gm/ Sodium 50 mls @ 50 mls/hr 07/02/17 10:00 Chloride IVPB DAILY [facility] Protocol Lactated Ringer's 1,000 mls @ 125 mls/hr 07/01/17 11:45 07/01/17 19:41 Lactated Ringers Solution IV Not Given ASDIR [facility] Insulin Aspart 1 vial 07/01/17 16:30 07/01/17 22:01 Novolog Vial Sliding Scale - SQ 6 units ACHS [facility] Administration Protocol Insulin Detemir 10 units 07/01/17 22:00 07/01/17 22:00 Levemir Vial SQ 10 unit HS [facility] Administration Lisinopril 20 mg 07/02/17 10:00 Prinivil PO DAILY [facility] Ondansetron HCl 4 mg 07/01/17 11:57 Zofran Injection IVPUSH Q6H PRN NAUSEA AND/OR VOMITING Ondansetron HCl 4 mg 07/01/17 11:41 Zofran Injection IVPUSH Q6H PRN NAUSEA AND/OR VOMITING Oxycodone HCl 5 mg 07/01/17 11:57 07/01/17 15:22 Roxicodone - PO 5 mg Q4H PRN Administration LEVEL 6-10 Pantoprazole Sodium 40 mg 07/02/17 10:00 Protonix - PO DAILY [facility] ASSESSMENT/PLAN: 51yo F with PMHx of uncontrolled DM2 admitted for the treatment of sepsis 2/2 infected DM foot ulcer. #Sepsis 2/2 infected diabetic foot ulcer -ID consult -ertapenem 1gm daily (day 7) (8 days total abx) -pain control: PO percocet. -wound cx growing alpha hemolytic strep -MRI showed osteo and possible abscess on the right. -POD 0: OR debridement w/ Dr. Byrnes today #Peripheral Vascular Dz -asa, plavix (holding in preparation for surgery, last administered 04/30) #Nausea/Vomiting likely 2/2 DM gastroparesis -Patient refusing GI workup. -Zofran 4mg IV prn nausea #TITA likely 2/2 dehydration 2/2 sepsis/vomiting -IVF -avoid nephrotoxic drugs -holding home ACEI #HTN -c/w home norvasc 10mg daily -c/w home coreg 12.5mg daily #DM -10u Levemir HS for better glycemic control -BGM ACHS -ISS ACHS -c/w home gabapentin 300 TID #FEN -no fluids indicated -monitor lytes. replete PRN -NPO past midnight #Prophylaxsis -Hep SQ 5ku TID # Dispo -Admit to inpatient med/surg Visit type - Emergency Visit Emergency Visit: Yes ED Registration Date: 06/23/17 Care time: The patient presented to the Emergency Department on the above date and was hospitalized for further evaluation of their emergent condition. - New Patient This patient is new to me today: No - Critical Care Critical Care patient: No
[2017-07-02] MEDS: INSULIN SLIDING SCALE (NOVOLOG) 1 VIAL SQ SCH ×5 (06:23→21:22)
[2017-07-02] MEDS: GABAPENTIN 300 MG CAPSULE (FP) PO SCH ×3 (06:24→21:22)
[2017-07-02] MEDS: HEPARIN NA (PORCINE) 5,000 UNITS/ML 1ML VIAL SQ SCH ×3 (06:24→21:25)
[2017-07-02] MEDS: oxyCODONE HCL 5 MG TABLET PO PRN ×4 (06:30→21:26)
[2017-07-02] MEDS: amLODIPine BESYLATE 10 MG TABLET (FP) PO SCH ×2 (07:16→10:49)
[2017-07-02] MEDS: ERTAPENEM SODIUM 1 GM in SODIUM CHLORIDE 50 ML IVPB SCH ×2 (07:16→10:48)
[2017-07-02] MEDS: LISINOPRIL 20 MG TABLET (FP) PO SCH ×2 (07:16→10:49)
[2017-07-02] MEDS: PANTOPRAZOLE 40 MG TABLET (FP) PO SCH ×2 (07:16→10:48)
[2017-07-02] MEDS: CARVEDILOL 12.5 MG TABLET (FP) PO SCH ×3 (07:16→21:22)
[2017-07-02] MEDS: COLLAGENASE CLOSTRIDIUM HIST. 30 GRAMS TUBE TP SCH ×2 (07:17→10:50)
[2017-07-02 07:35] LABS: HEMATOCRIT 21.1 % (32.4-45.2); HEMOGLOBIN 7.3 GM/dL (10.7-15.3); MCH 29.1 pg (25.7-33.7); MCHC 34.4 g/dl (32.0-36.0); MEAN CELL VOLUME 84.5 fl (80-96); MEAN PLT VOLUME 7.8 fl (7.5-11.1); PLATELET COUNT 396 K/MM3 (134-434); WHITE BLOOD COUNT 14.7 K/mm3 (4.0-10.0)
[2017-07-02 08:53] LABS: CHLORIDE 100 mmol/L (98-107); POTASSIUM 4.5 mmol/L (3.5-5.1); SODIUM 137 mmol/L (136-145)
[2017-07-02 09:22] LABS: ANION GAP 11 (8-16); BLOOD UREA NITROGEN 21 mg/dL (7-18); CALCIUM 8.4 mg/dL (8.5-10.1); CO2 26 mmol/L (21-32); CREATININE 0.9 mg/dL (0.55-1.02); GLUCOSE,RANDOM 273 mg/dL (74-106)
--- NOTE | 2017-07-02 09:29 | PN ---
Physical Exam: SUBJECTIVE: Patient seen and examined Patient has no new complain. Family at bedside. OBJECTIVE: Vital Signs Temperature 98.2 F 07/01/17 22:00 Pulse Rate 88 07/01/17 22:00 Respiratory Rate 20 07/01/17 22:00 Blood Pressure 120/73 07/01/17 22:00 O2 Sat by Pulse Oximetry (%) 98 07/01/17 21:00 GENERAL: The patient is awake, alert, and fully oriented, in no acute distress. HEAD: Normal with no signs of trauma. EYES: PERRL, extraocular movements intact, sclera anicteric, conjunctiva clear. No ptosis. ENT: Ears normal, nares patent, oropharynx clear without exudates, moist mucous membranes. NECK: Trachea midline, full range of motion, supple. LUNGS: Breath sounds equal, clear to auscultation bilaterally, no wheezes, no crackles, no accessory muscle use. HEART: Regular rate and rhythm, S1, S2 without murmur, rub or gallop. ABDOMEN: Soft, nontender, nondistended, normoactive bowel sounds, no guarding, no rebound, no hepatosplenomegaly, no masses. EXTREMITIES: 2+ pulses, warm, wrapped in bandages both Lower extremities NEUROLOGICAL: Cranial nerves II through XII grossly intact. Normal speech, gait not observed. PSYCH: Normal mood, normal affect. SKIN: Warm, dry, normal turgor, no rashes or lesions noted CBCD WBC 14.7 K/mm3 (4.0-10.0) H 07/02/17 07:05 RBC 2.50 M/mm3 (3.60-5.2) L 07/02/17 07:05 Hgb 7.3 GM/dL (10.7-15.3) L 07/02/17 07:05 Hct 21.1 % (32.4-45.2) L 07/02/17 07:05 MCV 84.5 fl (80-96) 07/02/17 07:05 MCHC 34.4 g/dl (32.0-36.0) 07/02/17 07:05 RDW 15.0 % (11.6-15.6) 07/02/17 07:05 Plt Count 396 K/MM3 (134-434) 07/02/17 07:05 MPV 7.8 fl (7.5-11.1) 07/02/17 07:05 CMP Sodium 137 mmol/L (136-145) 06/30/17 07:00 Potassium 4.4 mmol/L (3.5-5.1) 06/30/17 07:00 Chloride 101 mmol/L (98-107) 06/30/17 07:00 Carbon Dioxide 26 mmol/L (21-32) 06/30/17 07:00 Anion Gap 10 (8-16) 06/30/17 07:00 BUN 26 mg/dL (7-18) H 06/30/17 07:00 Creatinine 1.1 mg/dL (0.55-1.02) H 06/30/17 07:00 Creat Clearance w eGFR 52.58 (>60) 06/24/17 06:30 Random Glucose 188 mg/dL (74-106) H 06/30/17 07:00 Calcium 8.6 mg/dL (8.5-10.1) 06/30/17 07:00 Total Bilirubin 0.5 mg/dL (0.2-1.0) D 06/24/17 06:30 AST 10 U/L (15-37) L 06/24/17 06:30 ALT 13 U/L (12-78) 06/24/17 06:30 Alkaline Phosphatase 85 U/L (45-117) 06/24/17 06:30 Total Protein 6.8 g/dl (6.4-8.2) 06/24/17 06:30 Albumin 2.4 g/dl (3.4-5.0) L 06/24/17 06:30 CARDIAC ENZYMES Troponin I < 0.02 ng/ml (0.00-0.05) 06/23/17 20:31 Active Medications Generic Name Dose Route Start Last Admin Trade Name Freq PRN Reason Stop Dose Admin Amlodipine Besylate 10 mg 07/02/17 10:00 Norvasc - PO DAILY [facility] Aspirin 81 mg 07/02/17 10:00 Ecotrin - PO DAILY [facility] Atorvastatin Calcium 80 mg 07/01/17 22:00 07/01/17 22:01 Lipitor - PO 80 mg HS JESSICA Administration Carvedilol 12.5 mg 07/01/17 22:00 07/01/17 21:59 Coreg - PO 12.5 mg BID JESSICA Administration Clopidogrel Bisulfate 75 mg 07/02/17 10:00 Plavix - PO DAILY [facility] Collagenase 1 applic 07/02/17 10:00 Santyl - TP DAILY [facility] Docusate Sodium 100 mg 07/01/17 11:57 Colace - PO TID PRN CONSTIPATION Gabapentin 300 mg 07/01/17 14:00 07/02/17 06:24 Neurontin - PO 300 mg TID [facility] Administration Heparin Sodium (Porcine) 5,000 unit 07/01/17 14:00 07/02/17 06:24 Heparin - SQ 5,000 unit TID [facility] Administration Ertapenem 1 gm/ Sodium 50 mls @ 50 mls/hr 07/02/17 10:00 Chloride IVPB DAILY [facility] Protocol Lactated Ringer's 1,000 mls @ 125 mls/hr 07/01/17 11:45 07/01/17 19:41 Lactated Ringers Solution IV Not Given ASDIR [facility] Insulin Aspart 1 vial 07/01/17 16:30 07/02/17 06:23 Novolog Vial Sliding Scale - SQ 6 units ACHS [facility] Administration Protocol Insulin Detemir 10 units 07/01/17 22:00 07/01/17 22:00 Levemir Vial SQ 10 unit HS [facility] Administration Lisinopril 20 mg 07/02/17 10:00 Prinivil PO DAILY [facility] Ondansetron HCl 4 mg 07/01/17 11:57 Zofran Injection IVPUSH Q6H PRN NAUSEA AND/OR VOMITING Ondansetron HCl 4 mg 07/01/17 11:41 Zofran Injection IVPUSH Q6H PRN NAUSEA AND/OR VOMITING Oxycodone HCl 5 mg 07/01/17 11:57 07/02/17 06:30 Roxicodone - PO 5 mg Q4H PRN Administration LEVEL 6-10 Pantoprazole Sodium 40 mg 07/02/17 10:00 Protonix - PO DAILY [facility] Home Medications Medication Instructions Recorded Amlodipine Besylate [Norvasc -] 10 mg PO DAILY #30 tablet 03/25/17 Aspirin Coated [Ecotrin -] 81 mg PO DAILY #30 tablet.ec 03/25/17 Atorvastatin Ca [Lipitor] 80 mg PO HS #30 tablet 03/25/17 Carvedilol [Coreg -] 12.5 mg PO BID #60 tablet 01/19/18 Clopidogrel Bisulfate [Plavix -] 75 mg PO DAILY #30 tablet 03/25/17 Docusate Sodium [Colace -] 100 mg PO TID capsule 03/25/17 Lancets [Lancets Ultra Thin] 1 each ACHS #1 box 03/25/17 Lisinopril [Prinivil] 20 mg PO DAILY #30 tablet 03/25/17 Ondansetron [Zofran Odt -] 4 mg SL Q6H PRN #30 tab.rapdis 03/25/17 Sitagliptin Phosphate [Januvia -] 25 mg PO DAILY@0700 #30 tab 03/25/17 Gabapentin [Neurontin] 300 mg PO TID 04/27/17 Tramadol HCl 50 mg PO PRN PRN 04/27/17 Collagenase Clostridium Hist. 1 applic TP DAILY #90 oint...g. 05/20/17 [Santyl] Glipizide 5 mg PO BID 05/20/17 Microbiology ASSESSMENT/PLAN: Patient is a 52 y/o woman with HTN, DM, PAD, depression, non compliance with medical recommendations presented with bilateral heel ulcers, left heel ulcer with surrounding cellulitis and fluctuance. 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 #HTN continue meds # Anemia will repeat the levels in am with type and screen DVT Px: Heparin Visit type - Emergency Visit Emergency Visit: Yes ED Registration Date: 06/23/17 Care time: The patient presented to the Emergency Department on the above date and was hospitalized for further evaluation of their emergent condition. - New Patient This patient is new to me today: Yes Date on this admission: 07/02/17 - Critical Care Critical Care patient: No - Discharge Referral Referred to [facility] Med P.C.: No
--- NOTE | 2017-07-02 09:58 | PN ---
Progress Note (short form) - Note Progress Note: Anesthesiology Post-op POD#1 s/p I&D of bilateral heels under GA. Pt. is sitting up with legs hanging off of bed to help relieve her pain. She states that pain was very bad overnight but that it is a bit better now in this position. Otherwise, no n/v or other anesthesia-related issues. VSS. 52 y.o. woman s/p bilateral heel debridement with stable post-operative course. Will add 10mg oxycodone PRN dose to supplement for pain.
[2017-07-02] MEDS ORDERED: PT OWN MED DRAWER 7, Y5N ONE ×2 (10:11→18:32)
[2017-07-02] MEDS: CLOPIDOGREL BISULFATE 75 MG TABLET (FP) PO SCH (10:48)
[2017-07-02] MEDS: ASPIRIN COATED 81 MG TABLET.EC PO SCH (10:49)
--- NOTE | 2017-07-02 16:50 | PN ---
Progress Note, Physician History of Present Illness: Pt is alert, afebrile. Pain controlled with medicine. S/P drainage/debridment of b/l heels. - Current Medication List Current Medications: Active Medications Amlodipine Besylate (Norvasc -) 10 mg PO DAILY [facility] Last Admin: 07/02/17 10:49 Dose: 10 mg Aspirin (Ecotrin -) 81 mg PO DAILY [facility] Last Admin: 07/02/17 10:49 Dose: 81 mg Atorvastatin Calcium (Lipitor -) 80 mg PO HS [facility] Last Admin: 07/01/17 22:01 Dose: 80 mg Carvedilol (Coreg -) 12.5 mg PO BID [facility] Last Admin: 07/02/17 10:49 Dose: 12.5 mg Clopidogrel Bisulfate (Plavix -) 75 mg PO DAILY [facility] Last Admin: 07/02/17 10:48 Dose: 75 mg Collagenase (Santyl -) 1 applic TP DAILY [facility] Last Admin: 07/02/17 10:50 Dose: Not Given Docusate Sodium (Colace -) 100 mg PO TID PRN PRN Reason: CONSTIPATION Gabapentin (Neurontin -) 300 mg PO TID [facility] Last Admin: 07/02/17 14:28 Dose: Not Given Heparin Sodium (Porcine) (Heparin -) 5,000 unit SQ TID [facility] Last Admin: 07/02/17 14:28 Dose: 5,000 unit Ertapenem 1 gm/ Sodium (Chloride) 50 mls @ 50 mls/hr IVPB DAILY [facility] PRN Reason: Protocol Last Admin: 07/02/17 10:48 Dose: 50 mls/hr Insulin Aspart (Novolog Vial Sliding Scale -) 1 vial SQ ACHS [facility] PRN Reason: Protocol Last Admin: 07/02/17 12:01 Dose: 4 units Insulin Detemir (Levemir Vial) 10 units SQ HS [facility] Last Admin: 07/01/17 22:00 Dose: 10 unit Lisinopril (Prinivil) 20 mg PO DAILY [facility] Last Admin: 07/02/17 10:49 Dose: 20 mg Ondansetron HCl (Zofran Injection) 4 mg IVPUSH Q6H PRN PRN Reason: NAUSEA AND/OR VOMITING Oxycodone HCl (Roxicodone -) 5 mg PO Q4H PRN PRN Reason: LEVEL 6-10 Last Admin: 07/02/17 06:30 Dose: 5 mg Oxycodone HCl (Roxicodone -) 10 mg PO Q3H PRN PRN Reason: PAIN LEVEL 6-10 Last Admin: 07/02/17 11:06 Dose: 10 mg Pantoprazole Sodium (Protonix -) 40 mg PO DAILY [facility] Last Admin: 07/02/17 10:48 Dose: 40 mg - Objective Vital Signs: Vital Signs Temperature 97.8 F 07/02/17 14:56 Pulse Rate 84 07/02/17 14:56 Respiratory Rate 20 07/02/17 14:56 Blood Pressure 134/70 07/02/17 14:56 O2 Sat by Pulse Oximetry (%) 98 07/01/17 21:00 Constitutional: Yes: No Distress Cardiovascular: Yes: Regular Rate and Rhythm Respiratory: Yes: Regular Gastrointestinal: Yes: Normal Bowel Sounds, Soft Wound/Incision: Yes: Dressing Dry and Intact Neurological: Yes: Alert, Oriented Labs: CBC, BMP 07/02/17 07:05 07/02/17 07:05 INR, PTT INR 1.09 (0.82-1.09) 06/30/17 07:00 Microbiology 07/01/17 11:30 Wound Gram Stain - Final 07/01/17 11:30 Wound Wound Culture - Preliminary Lactose Fermenting Neg Bacilli Staphylococcus Latex Coag Pos 06/30/17 07:15 Blood - Peripheral Venous Blood Culture - Preliminary NO GROWTH OBTAINED AFTER 48 HOURS, INCUBATION TO CONTINUE FOR 3 DAYS. 06/30/17 07:00 Blood - Peripheral Venous Blood Culture - Preliminary NO GROWTH OBTAINED AFTER 48 HOURS, INCUBATION TO CONTINUE FOR 3 DAYS. 06/23/17 20:31 Blood - Peripheral Venous Blood Culture - Final NO GROWTH AFTER 5 DAYS INCUBATION 06/23/17 20:31 Blood - Peripheral Venous Blood Culture - Final NO GROWTH AFTER 5 DAYS INCUBATION 06/23/17 20:31 Foot - Left Heel Gram Stain - Final 06/23/17 20:31 Foot - Left Heel Wound Culture - Final Alpha Hemolytic Streptococcus - ....Imaging MRI: Report Reviewed Problem List - Problems (1) Cellulitis Code(s): L03.90 - CELLULITIS, UNSPECIFIED Qualifiers: Site of cellulitis: extremity Site of cellulitis of extremity: lower extremity Laterality: unspecified laterality Qualified Code(s): L03.119 - Cellulitis of unspecified part of limb (2) Diabetic foot ulcer Code(s): E11.621 - TYPE 2 DIABETES MELLITUS WITH FOOT ULCER; L97.509 - NON- PRESSURE CHRONIC ULCER OTH PRT UNSP FOOT W UNSP SEVERITY (3) Diabetic neuropathy with neurologic complication Code(s): E11.40 - TYPE 2 DIABETES MELLITUS WITH DIABETIC NEUROPATHY, UNSP; E11.49 - TYPE 2 DIABETES W OTH DIABETIC NEUROLOGICAL COMPLICATION (4) PVD (peripheral vascular disease) Code(s): I73.9 - PERIPHERAL VASCULAR DISEASE, UNSPECIFIED Assessment/Plan B/L heel infection - s/p I+D Persistent leukocytosis PVD Wound cultures with GNB/Staph - f/u results continue Ertapenem for now, add Vancomycin continue monitor wbc continue wound care
[2017-07-02] MEDS: VANCOMYCIN 1 GM PREMIX - 1 GM/200 ML BAG IVPB SCH (18:44)
[2017-07-02] MEDS: ATORVASTATIN CA 80 MG TABLET (FP) PO SCH (21:22)
[2017-07-02] MEDS: INSULIN DETEMIR 100 UNITS/ML MDV SQ SCH (21:24)
[2017-07-03] MEDS ORDERED: PT OWN MED DRAWER 7, Y5N ONE ×2 (06:14→09:20)
[2017-07-03] MEDS: INSULIN SLIDING SCALE (NOVOLOG) 1 VIAL SQ SCH ×4 (06:27→22:55)
[2017-07-03] MEDS: HEPARIN NA (PORCINE) 5,000 UNITS/ML 1ML VIAL SQ SCH ×2 (06:27→14:32)
[2017-07-03] MEDS: GABAPENTIN 300 MG CAPSULE (FP) PO SCH ×3 (06:27→22:52)
[2017-07-03] MEDS: VANCOMYCIN 1 GM PREMIX - 1 GM/200 ML BAG IVPB SCH ×2 (06:27→20:37)
[2017-07-03] MEDS: oxyCODONE HCL 5 MG TABLET PO PRN ×4 (06:40→22:53)
[2017-07-03] MEDS: PANTOPRAZOLE 40 MG TABLET (FP) PO SCH (09:26)
[2017-07-03] MEDS: LISINOPRIL 20 MG TABLET (FP) PO SCH (09:26)
[2017-07-03] MEDS: CARVEDILOL 12.5 MG TABLET (FP) PO SCH ×2 (09:26→22:52)
[2017-07-03] MEDS: ASPIRIN COATED 81 MG TABLET.EC PO SCH (09:26)
[2017-07-03] MEDS: amLODIPine BESYLATE 10 MG TABLET (FP) PO SCH (09:26)
[2017-07-03] MEDS: CLOPIDOGREL BISULFATE 75 MG TABLET (FP) PO SCH (09:26)
[2017-07-03] MEDS: ERTAPENEM SODIUM 1 GM in SODIUM CHLORIDE 50 ML IVPB SCH (09:27)
[2017-07-03] MEDS: INSULIN DETEMIR 100 UNITS/ML MDV SQ SCH (10:50)
--- NOTE | 2017-07-03 13:41 | CONSULT ---
Consult Consult Specialty:: Endocrinology Referred by:: Dr Jain Reason for Consultation:: Hyperglycemia - History of Present Illness Chief Complaint: Wound discharge History of Present Illness: This is a 52 y/o F with h/o T2DM for about 10 years, never on home Insulin, chronic bilateral feet ulcers who was sent from Dr Byrnes's wound clinic for further evaluation. Had increasing B/L heel pain around her eschars and foul smell, L worse than Rt. Currently undergoing hyperbaric therapy w/ topical treatments. Denies fevers, chills, CP, SOB. Has chronic nausea and vomiting for which she takes no meds. In the ER, the patient was tachycardic but otherwise stable. Labs revealed leukocytosis. Pt treated with IV Abcx and had b/l heel debridement. Pt referred for management of hyperlgycemia. Pt doesn't do FS at home. When done at wound care center it is usually 200s. Highest 401. No hypos. No hospitalization for hypo or hyperglycemia. No visual symptoms. She is due for annual eye exam. Has paresthesia of feet off and on and pain left lower extremity. Has nocturia x3. Both parents and a brother are diabetic. Gives h/o of facial that needs plucking every few days for many years. She was told it was from her "hormones" Refuses to answer further questions saying she is here to take care of her feet and doesn't want anything to do with other issues. She was recently admitted in mar 2017 for sepsis 2/2 BLLE wound infection (R worse than L). At that time, MRI showed no osteo b/l, wound cultures on RLE grew polymicrobial organisms, successfully treated w/ Ertapenem for 1 week. During that admission, CTA showed extensive PVD in both legs. She underwent R sided angio and SFA stent placement by Dr Byrnes and I&D of R heel subcutaneous abscess by podiatry. For her vomiting, Dr Gonzales planned to undergo gastric emptying study, ?unsure if performed since results are not available in EMR. She was d/cd to SNF for short term rehab. - History Source History Provided By: Patient, Medical Record - Past Medical History Cardio/Vascular: Yes: HTN, Hyperlipdemia, Other (PVD) ...LMP: 02/23/17 Endocrine: Yes: Diabetes Mellitus - Past Surgical History Past Surgical History: Yes: (multiple c-sections in past) - Alcohol/Substance Use Hx Alcohol Use: No - Smoking History Smoking history: Never smoked Home Medications - Allergies Allergies/Adverse Reactions: Allergies Allergy/AdvReac Type Severity Reaction Status Date / Time Penicillins Allergy Unknown "OUT OF IT" Verified 06/23/17 18:51 - Home Medications Home Medications: Ambulatory Orders Amlodipine Besylate [Norvasc -] 10 mg PO DAILY #30 tablet 03/25/17 Aspirin Coated [Ecotrin -] 81 mg PO DAILY #30 tablet.ec 03/25/17 Atorvastatin Ca [Lipitor] 80 mg PO HS #30 tablet 03/25/17 Carvedilol [Coreg -] 12.5 mg PO BID #60 tablet 03/25/17 Clopidogrel Bisulfate [Plavix -] 75 mg PO DAILY #30 tablet 03/25/17 Docusate Sodium [Colace -] 100 mg PO TID capsule 03/25/17 Lancets [Lancets Ultra Thin] 1 each ACHS #1 box 03/25/17 Lisinopril [Prinivil] 20 mg PO DAILY #30 tablet 03/25/17 Ondansetron [Zofran Odt -] 4 mg SL Q6H PRN #30 tab.rapdis 03/25/17 Sitagliptin Phosphate [Januvia -] 25 mg PO DAILY@0700 #30 tab 03/25/17 Gabapentin [Neurontin] 300 mg PO TID 04/27/17 Tramadol HCl 50 mg PO PRN PRN 04/27/17 Collagenase Clostridium Hist. [Santyl] 1 applic TP DAILY #90 oint...g. 05/20/17 Glipizide 5 mg PO BID 05/20/17 Family Disease History - Family Disease History Family Disease History: Diabetes: Father, Mother, Brother Review of Systems - Review of Systems Constitutional: reports: No Symptoms Eyes: reports: No Symptoms HENT: reports: No Symptoms Neck: reports: No Symptoms Cardiovascular: reports: No Symptoms Respiratory: reports: No Symptoms Gastrointestinal: reports: No Symptoms Genitourinary: reports: No Symptoms Musculoskeletal: reports: Extremity Pain (left lower extremity pain) Neurological: reports: Parasthesia (of feet off and on) Endocrine: reports: No Symptoms Hematology/Lymphatic: reports: No Symptoms Physical Exam Vital Signs: Vital Signs Temperature 98.7 F 07/03/17 10:00 Pulse Rate 90 07/03/17 10:00 Respiratory Rate 17 07/03/17 10:00 Blood Pressure 123/61 07/03/17 10:00 O2 Sat by Pulse Oximetry (%) 94 L 07/03/17 09:00 Constitutional: Yes: No Distress, Calm Eyes: Yes: Conjunctiva Clear, EOM Intact HENT: Yes: Atraumatic, Normocephalic, Other (Has increased hair growth over the chins) Neck: Yes: Supple, Trachea Midline Cardiovascular: Yes: Regular Rate and Rhythm Respiratory: Yes: Regular, CTA Bilaterally Gastrointestinal: Yes: Normal Bowel Sounds, Soft Renal/: Yes: WNL Musculoskeletal: Yes: WNL Extremities: Yes: Other (B/L feet dressing) Edema: No Neurological: Yes: Alert, Oriented Labs: CBC, BMP 07/02/17 07:05 07/02/17 07:05 Problem List - Problems (1) Foot ulcer Code(s): L97.509 - NON-PRESSURE CHRONIC ULCER OTH PRT UNSP FOOT W UNSP SEVERITY Qualifiers: Laterality: unspecified laterality Non-pressure ulcer stage: unspecified non-pressure ulcer stage Qualified Code(s): L97.509 - Non-pressure chronic ulcer of other part of unspecified foot with unspecified severity (2) Diabetic foot ulcer Code(s): E11.621 - TYPE 2 DIABETES MELLITUS WITH FOOT ULCER; L97.509 - NON- PRESSURE CHRONIC ULCER OTH PRT UNSP FOOT W UNSP SEVERITY (3) PVD (peripheral vascular disease) Code(s): I73.9 - PERIPHERAL VASCULAR DISEASE, UNSPECIFIED (4) Type 2 diabetes mellitus Code(s): E11.9 - TYPE 2 DIABETES MELLITUS WITHOUT COMPLICATIONS Qualifiers: 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 Discussed option of her taking Insulin at home. Pt doen't want to do that. Wants to stay on pills for now Will start Glipizide 2.5 mg BID Add Januvia 25 mg QD Continue Levemri Novolog SS coverage Nutiriton consult noted Will f/u
[2017-07-03] MEDS: glipiZIDE 5 MG TABLET (FP) PO SCH (16:33)
--- NOTE | 2017-07-03 18:14 | PN ---
Progress Note, Physician History of Present Illness: Pt without new complaints. Remains afebrile, alert. Pain controlled. - Current Medication List Current Medications: Active Medications Amlodipine Besylate (Norvasc -) 10 mg PO DAILY [facility] Last Admin: 07/03/17 09:26 Dose: 10 mg Aspirin (Ecotrin -) 81 mg PO DAILY [facility] Last Admin: 07/03/17 09:26 Dose: 81 mg Atorvastatin Calcium (Lipitor -) 80 mg PO HS [facility] Last Admin: 07/02/17 21:22 Dose: 80 mg Carvedilol (Coreg -) 12.5 mg PO BID [facility] Last Admin: 07/03/17 09:26 Dose: 12.5 mg Clopidogrel Bisulfate (Plavix -) 75 mg PO DAILY [facility] Last Admin: 07/03/17 09:26 Dose: 75 mg Collagenase (Santyl -) 1 applic TP DAILY [facility] Last Admin: 07/02/17 10:50 Dose: Not Given Docusate Sodium (Colace -) 100 mg PO TID PRN PRN Reason: CONSTIPATION Gabapentin (Neurontin -) 300 mg PO TID [facility] Last Admin: 07/03/17 14:32 Dose: 300 mg Glipizide (Glucotrol -) 2.5 mg PO BID@0700,1630 [facility] Last Admin: 07/03/17 16:33 Dose: 2.5 mg Heparin Sodium (Porcine) (Heparin -) 5,000 unit SQ TID [facility] Last Admin: 07/03/17 14:32 Dose: 5,000 unit Ertapenem 1 gm/ Sodium (Chloride) 50 mls @ 50 mls/hr IVPB DAILY [facility] PRN Reason: Protocol Last Admin: 07/03/17 09:27 Dose: 50 mls/hr Vancomycin HCl (Vancomycin 1 Gm Premix -) 1 gm in 200 mls @ 133.333 mls/hr IVPB BID@0600,1800 [facility] PRN Reason: Protocol Last Admin: 07/03/17 06:27 Dose: 133.333 mls/hr Insulin Aspart (Novolog Vial Sliding Scale -) 1 vial SQ ACHS [facility] PRN Reason: Protocol Last Admin: 07/03/17 16:42 Dose: 6 units Insulin Detemir (Levemir Vial) 10 units SQ HS [facility] Last Admin: 07/02/17 21:24 Dose: 10 unit Lisinopril (Prinivil) 20 mg PO DAILY [facility] Last Admin: 07/03/17 09:26 Dose: 20 mg Ondansetron HCl (Zofran Injection) 4 mg IVPUSH Q6H PRN PRN Reason: NAUSEA AND/OR VOMITING Last Admin: 07/02/17 18:55 Dose: 4 mg Oxycodone HCl (Roxicodone -) 5 mg PO Q4H PRN PRN Reason: LEVEL 6-10 Last Admin: 07/03/17 06:40 Dose: 5 mg Oxycodone HCl (Roxicodone -) 10 mg PO Q3H PRN PRN Reason: PAIN LEVEL 6-10 Last Admin: 07/03/17 12:44 Dose: 10 mg Pantoprazole Sodium (Protonix -) 40 mg PO DAILY [facility] Last Admin: 07/03/17 09:26 Dose: 40 mg Sitagliptin Phosphate (Januvia -) 25 mg PO DAILY@0700 [facility] - Objective Vital Signs: Vital Signs Temperature 98.9 F 07/03/17 17:04 Pulse Rate 87 07/03/17 17:04 Respiratory Rate 20 07/03/17 17:04 Blood Pressure 131/74 07/03/17 17:04 O2 Sat by Pulse Oximetry (%) 94 L 07/03/17 09:00 Constitutional: Yes: No Distress, Calm Cardiovascular: Yes: Regular Rate and Rhythm Respiratory: Yes: Regular Gastrointestinal: Yes: Normal Bowel Sounds, Soft Wound/Incision: Yes: Dressing Dry and Intact (b/l heel dressings, no foot edema) Neurological: Yes: Alert Labs: CBC, BMP 07/02/17 07:05 07/02/17 07:05 INR, PTT INR 1.09 (0.82-1.09) 06/30/17 07:00 Microbiology 07/01/17 11:30 Wound Gram Stain - Final 07/01/17 11:30 Wound Wound Culture - Final Escherichia Coli Mr S Aureus 06/30/17 07:15 Blood - Peripheral Venous Blood Culture - Preliminary NO GROWTH OBTAINED AFTER 72 HOURS, INCUBATION TO CONTINUE FOR 2 DAYS. 06/30/17 07:00 Blood - Peripheral Venous Blood Culture - Preliminary NO GROWTH OBTAINED AFTER 72 HOURS, INCUBATION TO CONTINUE FOR 2 DAYS. 06/23/17 20:31 Blood - Peripheral Venous Blood Culture - Final NO GROWTH AFTER 5 DAYS INCUBATION 06/23/17 20:31 Blood - Peripheral Venous Blood Culture - Final NO GROWTH AFTER 5 DAYS INCUBATION 06/23/17 20:31 Foot - Left Heel Gram Stain - Final 06/23/17 20:31 Foot - Left Heel Wound Culture - Final Alpha Hemolytic Streptococcus Problem List - Problems (1) Cellulitis Code(s): L03.90 - CELLULITIS, UNSPECIFIED Qualifiers: Site of cellulitis: extremity Site of cellulitis of extremity: lower extremity Laterality: unspecified laterality Qualified Code(s): L03.119 - Cellulitis of unspecified part of limb (2) Diabetic foot ulcer Code(s): E11.621 - TYPE 2 DIABETES MELLITUS WITH FOOT ULCER; L97.509 - NON- PRESSURE CHRONIC ULCER OTH PRT UNSP FOOT W UNSP SEVERITY (3) Diabetic neuropathy with neurologic complication Code(s): E11.40 - TYPE 2 DIABETES MELLITUS WITH DIABETIC NEUROPATHY, UNSP; E11.49 - TYPE 2 DIABETES W OTH DIABETIC NEUROLOGICAL COMPLICATION (4) PVD (peripheral vascular disease) Code(s): I73.9 - PERIPHERAL VASCULAR DISEASE, UNSPECIFIED Assessment/Plan B/L heel infection - s/p I+D : E. coli/MRSA isolated Rt heel OM on MRI leukocytosis PVD DM continue Ertapenem and Vancomycin contact precautions f/u cbc and vancomycin trough ordered continue wound care
--- NOTE | 2017-07-03 19:22 | PN ---
Progress Note (short form) - Note Progress Note: Vital Signs Temperature 98.9 F 07/03/17 17:04 Pulse Rate 87 07/03/17 17:04 Respiratory Rate 20 07/03/17 17:04 Blood Pressure 131/74 07/03/17 17:04 O2 Sat by Pulse Oximetry (%) 94 L 07/03/17 09:00 GENERAL: The patient is awake, alert, and fully oriented, in no acute distress. HEAD: Normal with no signs of trauma. EYES: PERRL, extraocular movements intact, sclera anicteric, conjunctiva clear. No ptosis. ENT: Ears normal, nares patent, oropharynx clear without exudates, moist mucous membranes. NECK: Trachea midline, full range of motion, supple. LUNGS: Breath sounds equal, clear to auscultation bilaterally, no wheezes, no crackles, no accessory muscle use. HEART: Regular rate and rhythm, S1, S2 without murmur, rub or gallop. ABDOMEN: Soft, nontender, nondistended, normoactive bowel sounds, no guarding, no rebound, no hepatosplenomegaly, no masses. EXTREMITIES: 2+ pulses, warm, wrapped in bandages both Lower extremities NEUROLOGICAL: Cranial nerves II through XII grossly intact. Normal speech, gait not observed. PSYCH: Normal mood, normal affect. SKIN: Warm, dry, normal turgor, no rashes or lesions noted CBCD WBC 14.7 K/mm3 (4.0-10.0) H 07/02/17 07:05 RBC 2.50 M/mm3 (3.60-5.2) L 07/02/17 07:05 Hgb 7.3 GM/dL (10.7-15.3) L 07/02/17 07:05 Hct 21.1 % (32.4-45.2) L 07/02/17 07:05 MCV 84.5 fl (80-96) 07/02/17 07:05 MCHC 34.4 g/dl (32.0-36.0) 07/02/17 07:05 RDW 15.0 % (11.6-15.6) 07/02/17 07:05 Plt Count 396 K/MM3 (134-434) 07/02/17 07:05 MPV 7.8 fl (7.5-11.1) 07/02/17 07:05 CMP Sodium 137 mmol/L (136-145) 07/02/17 07:05 Potassium 4.5 mmol/L (3.5-5.1) 07/02/17 07:05 Chloride 100 mmol/L (98-107) 07/02/17 07:05 Carbon Dioxide 26 mmol/L (21-32) 07/02/17 07:05 Anion Gap 11 (8-16) 07/02/17 07:05 BUN 21 mg/dL (7-18) H 07/02/17 07:05 Creatinine 0.9 mg/dL (0.55-1.02) 07/02/17 07:05 Creat Clearance w eGFR 52.58 (>60) 06/24/17 06:30 Random Glucose 273 mg/dL (74-106) H 07/02/17 07:05 Calcium 8.4 mg/dL (8.5-10.1) L 07/02/17 07:05 Total Bilirubin 0.5 mg/dL (0.2-1.0) D 06/24/17 06:30 AST 10 U/L (15-37) L 06/24/17 06:30 ALT 13 U/L (12-78) 06/24/17 06:30 Alkaline Phosphatase 85 U/L (45-117) 06/24/17 06:30 Total Protein 6.8 g/dl (6.4-8.2) 06/24/17 06:30 Albumin 2.4 g/dl (3.4-5.0) L 06/24/17 06:30 CARDIAC ENZYMES Troponin I < 0.02 ng/ml (0.00-0.05) 06/23/17 20:31 Current Medications Generic Name Dose Route Start Last Admin Trade Name Freq PRN Reason Stop Dose Admin Amlodipine Besylate 10 mg 07/02/17 10:00 07/03/17 09:26 Norvasc - PO 10 mg DAILY JESSICA Administration Aspirin 81 mg 07/02/17 10:00 07/03/17 09:26 Ecotrin - PO 81 mg DAILY JESSICA Administration Atorvastatin Calcium 80 mg 07/01/17 22:00 07/02/17 21:22 Lipitor - PO 80 mg HS JESSICA Administration Carvedilol 12.5 mg 07/01/17 22:00 07/03/17 09:26 Coreg - PO 12.5 mg BID JESSICA Administration Clopidogrel Bisulfate 75 mg 07/02/17 10:00 07/03/17 09:26 Plavix - PO 75 mg DAILY [facility] Administration Collagenase 1 applic 07/02/17 10:00 07/02/17 10:50 Santyl - TP Not Given DAILY [facility] Docusate Sodium 100 mg 07/01/17 11:57 Colace - PO TID PRN CONSTIPATION Gabapentin 300 mg 07/01/17 14:00 07/03/17 14:32 Neurontin - PO 300 mg TID JESSICA Administration Glipizide 2.5 mg 07/03/17 16:30 07/03/17 16:33 Glucotrol - PO 2.5 mg BID@0700,1630 [facility] Administration Heparin Sodium (Porcine) 5,000 unit 07/01/17 14:00 07/03/17 14:32 Heparin - SQ 5,000 unit TID [facility] Administration Ertapenem 1 gm/ Sodium 50 mls @ 50 mls/hr 07/02/17 10:00 07/03/17 09:27 Chloride IVPB 50 mls/hr DAILY [facility] Administration Protocol Vancomycin HCl 1 gm in 200 mls @ 133.333 mls/hr 07/02/17 18:00 07/03/17 06:27 Vancomycin 1 Gm Premix - IVPB 133.333 mls/hr BID@0600,1800 [facility] Administration Protocol Insulin Aspart 1 vial 07/01/17 16:30 07/03/17 16:42 Novolog Vial Sliding Scale - SQ 6 units ACHS [facility] Administration Protocol Insulin Detemir 10 units 07/01/17 22:00 07/02/17 21:24 Levemir Vial SQ 10 unit HS [facility] Administration Lisinopril 20 mg 07/02/17 10:00 07/03/17 09:26 Prinivil PO 20 mg DAILY [facility] Administration Ondansetron HCl 4 mg 07/01/17 11:57 07/02/17 18:55 Zofran Injection IVPUSH 4 mg Q6H PRN Administration NAUSEA AND/OR VOMITING Oxycodone HCl 5 mg 07/01/17 11:57 07/03/17 19:02 Roxicodone - PO 5 mg Q4H PRN Administration LEVEL 6-10 Oxycodone HCl 10 mg 07/02/17 09:54 07/03/17 12:44 Roxicodone - PO 10 mg Q3H PRN Administration PAIN LEVEL 6-10 Pantoprazole Sodium 40 mg 07/02/17 10:00 07/03/17 09:26 Protonix - PO 40 mg DAILY [facility] Administration Sitagliptin Phosphate 25 mg 07/04/17 07:00 Januvia - PO DAILY@0700 [facility] Home Medications Medication Instructions Recorded Amlodipine Besylate [Norvasc -] 10 mg PO DAILY #30 tablet 03/25/17 Aspirin Coated [Ecotrin -] 81 mg PO DAILY #30 tablet.ec 03/25/17 Atorvastatin Ca [Lipitor] 80 mg PO HS #30 tablet 03/25/17 Carvedilol [Coreg -] 12.5 mg PO BID #60 tablet 03/25/17 Clopidogrel Bisulfate [Plavix -] 75 mg PO DAILY #30 tablet 03/25/17 Docusate Sodium [Colace -] 100 mg PO TID capsule 03/25/17 Lancets [Lancets Ultra Thin] 1 each ACHS #1 box 03/25/17 Lisinopril [Prinivil] 20 mg PO DAILY #30 tablet 03/25/17 Ondansetron [Zofran Odt -] 4 mg SL Q6H PRN #30 tab.rapdis 03/25/17 Sitagliptin Phosphate [Januvia -] 25 mg PO DAILY@0700 #30 tab 03/25/17 Gabapentin [Neurontin] 300 mg PO TID 04/27/17 Tramadol HCl 50 mg PO PRN PRN 04/27/17 Collagenase Clostridium Hist. 1 applic TP DAILY #90 oint...g. 05/20/17 [Santyl] Glipizide 5 mg PO BID 05/20/17 Microbiology 07/01/17 11:30 Wound Gram Stain - Final 07/01/17 11:30 Wound Wound Culture - Final Escherichia Coli Mr S Aureus 06/30/17 07:15 Blood - Peripheral Venous Blood Culture - Preliminary NO GROWTH OBTAINED AFTER 72 HOURS, INCUBATION TO CONTINUE FOR 2 DAYS. 06/30/17 07:00 Blood - Peripheral Venous Blood Culture - Preliminary NO GROWTH OBTAINED AFTER 72 HOURS, INCUBATION TO CONTINUE FOR 2 DAYS. 06/23/17 20:31 Blood - Peripheral Venous Blood Culture - Final NO GROWTH AFTER 5 DAYS INCUBATION 06/23/17 20:31 Blood - Peripheral Venous Blood Culture - Final NO GROWTH AFTER 5 DAYS INCUBATION 06/23/17 20:31 Foot - Left Heel Gram Stain - Final 06/23/17 20:31 Foot - Left Heel Wound Culture - Final Alpha Hemolytic Streptococcus ASSESSMENT/PLAN: Patient is a 52 y/o woman with HTN, DM, PAD, depression, non compliance with medical recommendations presented with bilateral heel ulcers, left heel ulcer with surrounding cellulitis and fluctuance. # B/l HEEL INFECTION GROWING mrsa e.COLI ON eRTAPENEM, VANCO CONTINUE iD ON THE CASE # PAD, on plavix and lipitor continue # T2DM Dr. Chanel seen the patient and placed the patient on Levemir and sliding scale . #HTN continue meds # Anemia will repeat the levels in am with type and screen DVT Px: Heparin Visit type - Emergency Visit Emergency Visit: Yes ED Registration Date: 06/23/17 Care time: The patient presented to the Emergency Department on the above date and was hospitalized for further evaluation of their emergent condition. - New Patient This patient is new to me today: No - Critical Care Critical Care patient: No - Discharge Referral Referred to [facility] Med P.C.: No
[2017-07-03] MEDS: COLLAGENASE CLOSTRIDIUM HIST. 30 GRAMS TUBE TP SCH (20:38)
[2017-07-03] MEDS: ATORVASTATIN CA 80 MG TABLET (FP) PO SCH (22:52)
[2017-07-04] MEDS: HEPARIN NA (PORCINE) 5,000 UNITS/ML 1ML VIAL SQ SCH ×3 (00:20→13:41)
[2017-07-04] MEDS: VANCOMYCIN 1 GM PREMIX - 1 GM/200 ML BAG IVPB SCH ×2 (06:51→21:27)
[2017-07-04] MEDS: INSULIN SLIDING SCALE (NOVOLOG) 1 VIAL SQ SCH ×3 (06:52→17:25)
[2017-07-04] MEDS: GABAPENTIN 300 MG CAPSULE (FP) PO SCH ×2 (06:52→13:41)
[2017-07-04 07:52] LABS: BASO % 0.7 % (0-2.0); EOS % 3.4 % (0-4.5); HEMATOCRIT 23.2 % (32.4-45.2); HEMOGLOBIN 7.6 GM/dL (10.7-15.3); LYMPH % 11.4 % (8-40); MCHC 32.7 g/dl (32.0-36.0); MEAN CELL VOLUME 85.7 fl (80-96); MEAN PLT VOLUME 7.7 fl (7.5-11.1); MONO % 7.3 % (3.8-10.2); NEUT % 77.2 % (42.8-82.8); PLATELET COUNT 503 K/MM3 (134-434); RDW 14.7 % (11.6-15.6); WHITE BLOOD COUNT 14.3 K/mm3 (4.0-10.0)
[2017-07-04 08:11] LABS: ANION GAP 7 (8-16); BLOOD UREA NITROGEN 21 mg/dL (7-18); CALCIUM 8.4 mg/dL (8.5-10.1); CHLORIDE 99 mmol/L (98-107); CO2 31 mmol/L (21-32); GLUCOSE,RANDOM 207 mg/dL (74-106); PHOSPHOROUS 3.8 mg/dL (2.5-4.9); POTASSIUM 4.5 mmol/L (3.5-5.1); SODIUM 137 mmol/L (136-145)
[2017-07-04 08:13] LABS: ALBUMIN 1.9 g/dl (3.4-5.0); ALK PHOS 71 U/L (45-117); BILIRUBIN,TOTAL 0.3 mg/dL (0.2-1.0); CREATININE 1.2 mg/dL (0.55-1.02); MAGNESIUM 1.6 mg/dL (1.8-2.4); SGOT/AST 10 U/L (15-37); SGPT/ALT 13 U/L (12-78); TOT PROT 6.4 g/dl (6.4-8.2)
[2017-07-04] MEDS ORDERED: PT OWN MED DRAWER 7, Y5N ONE ×3 (08:27→17:23)
[2017-07-04] MEDS: sitaGLIPtin PHOSPHATE 25 MG TABLET (FP) PO SCH (08:46)
[2017-07-04] MEDS: glipiZIDE 5 MG TABLET (FP) PO SCH ×2 (08:46→17:27)
[2017-07-04] MEDS: oxyCODONE HCL 5 MG TABLET PO PRN (08:52)
[2017-07-04] MEDS ORDERED: ACETAMINOPHEN 325 MG TABLET (FP) PO PRN (08:54)
[2017-07-04] MEDS: ASPIRIN COATED 81 MG TABLET.EC PO SCH (09:37)
[2017-07-04] MEDS: ERTAPENEM SODIUM 1 GM in SODIUM CHLORIDE 50 ML IVPB SCH (09:37)
[2017-07-04] MEDS: amLODIPine BESYLATE 10 MG TABLET (FP) PO SCH (09:37)
[2017-07-04] MEDS: LISINOPRIL 20 MG TABLET (FP) PO SCH (09:37)
[2017-07-04] MEDS: PANTOPRAZOLE 40 MG TABLET (FP) PO SCH (09:37)
[2017-07-04] MEDS: CARVEDILOL 12.5 MG TABLET (FP) PO SCH (09:37)
[2017-07-04] MEDS: COLLAGENASE CLOSTRIDIUM HIST. 30 GRAMS TUBE TP SCH (09:38)
[2017-07-04 09:50] LABS: URIC ACID 5.6 mg/dL (2.6-7.2)
[2017-07-04] MEDS: CLOPIDOGREL BISULFATE 75 MG TABLET (FP) PO SCH (10:03)
--- NOTE | 2017-07-04 10:31 | PN ---
Progress Note (short form) - Note Progress Note: C/O feeling drowsy after pain medication C/O ankle and left leg pain Vital Signs Period Temp Pulse Resp BP Sys/Rahman Pulse Ox Last 24 Hr 98.2 F-99.4 F 87-96 20-20 112-139/55-74 94 PE: AOx3 Neck: supple, No JVD HEENT: PERRL, EOMI Lungs: CTA CVS: S1S2 Abd: Benign Ext: B/L leg dressing Neuro: No focal deficit CMP Sodium 137 mmol/L (136-145) 07/04/17 06:35 Potassium 4.5 mmol/L (3.5-5.1) 07/04/17 06:35 Chloride 99 mmol/L (98-107) 07/04/17 06:35 Carbon Dioxide 31 mmol/L (21-32) 07/04/17 06:35 Anion Gap 7 (8-16) L 07/04/17 06:35 BUN 21 mg/dL (7-18) H 07/04/17 06:35 Creatinine 1.2 mg/dL (0.55-1.02) H 07/04/17 06:35 Creat Clearance w eGFR 47.55 (>60) 07/04/17 06:35 POC Glucometer 224 UNITS (80-120) 07/04/17 06:50 Random Glucose 207 mg/dL (74-106) H 07/04/17 06:35 Hemoglobin A1c % 10.4 % (4.8-6.0) H 06/24/17 06:30 Lactic Acid 0.7 mmol/L (0.0-2.0) 06/24/17 07:00 Uric Acid 5.6 mg/dL (2.6-7.2) 07/04/17 06:35 Calcium 8.4 mg/dL (8.5-10.1) L 07/04/17 06:35 Phosphorus 3.8 mg/dL (2.5-4.9) 07/04/17 06:35 Magnesium 1.6 mg/dL (1.8-2.4) L 07/04/17 06:35 Total Bilirubin 0.3 mg/dL (0.2-1.0) D 07/04/17 06:35 AST 10 U/L (15-37) L 04/30/18 06:35 ALT 13 U/L (12-78) 07/04/17 06:35 Alkaline Phosphatase 71 U/L (45-117) 07/04/17 06:35 Troponin I < 0.02 ng/ml (0.00-0.05) 06/23/17 20:31 C-Reactive Protein 12.6 MG/DL (0.00-0.3) H 06/29/17 06:20 Total Protein 6.4 g/dl (6.4-8.2) 07/04/17 06:35 Albumin 1.9 g/dl (3.4-5.0) L 07/04/17 06:35 Lipase 83 U/L (73-393) 06/24/17 06:30 Serum , Qual Negative 07/01/17 10:02 Current Medications Generic Name Dose Route Start Last Admin Trade Name Freq PRN Reason Stop Dose Admin Acetaminophen 650 mg 07/04/17 08:54 Tylenol - PO Q6H PRN PAIN 1-5 Amlodipine Besylate 10 mg 07/02/17 10:00 07/04/17 09:37 Norvasc - PO 10 mg DAILY JESSICA Administration Aspirin 81 mg 07/02/17 10:00 07/04/17 09:37 Ecotrin - PO 81 mg DAILY [facility] Administration Atorvastatin Calcium 80 mg 07/01/17 22:00 07/03/17 22:52 Lipitor - PO 80 mg HS JESSICA Administration Carvedilol 12.5 mg 07/01/17 22:00 07/04/17 09:37 Coreg - PO 12.5 mg BID JESSICA Administration Clopidogrel Bisulfate 75 mg 07/02/17 10:00 07/04/17 10:03 Plavix - PO 75 mg DAILY [facility] Administration Collagenase 1 applic 07/02/17 10:00 07/04/17 09:38 Santyl - TP Not Given DAILY [facility] Docusate Sodium 100 mg 07/01/17 11:57 Colace - PO TID PRN CONSTIPATION Gabapentin 300 mg 07/01/17 14:00 07/04/17 06:52 Neurontin - PO 300 mg TID JESSICA Administration Glipizide 2.5 mg 07/03/17 16:30 07/04/17 08:46 Glucotrol - PO 2.5 mg BID@0700,1630 JESSICA Administration Heparin Sodium (Porcine) 5,000 unit 07/01/17 14:00 07/04/17 06:52 Heparin - SQ 5,000 unit TID JESSICA Administration Ertapenem 1 gm/ Sodium 50 mls @ 50 mls/hr 07/02/17 10:00 07/04/17 09:37 Chloride IVPB 50 mls/hr DAILY JESSICA Administration Protocol Vancomycin HCl 1 gm in 200 mls @ 133.333 mls/hr 07/02/17 18:00 07/04/17 06:51 Vancomycin 1 Gm Premix - IVPB 133.333 mls/hr BID@0600,1800 JESSICA Administration Protocol Insulin Aspart 1 vial 07/01/17 16:30 07/04/17 06:52 Novolog Vial Sliding Scale - SQ 4 units ACHS JESSICA Administration Protocol Insulin Detemir 10 units 07/01/17 22:00 07/03/17 10:50 Levemir Vial SQ 10 unit HS JESSICA Administration Lisinopril 20 mg 07/02/17 10:00 07/04/17 09:37 Prinivil PO 20 mg DAILY JESSICA Administration Ondansetron HCl 4 mg 07/01/17 11:57 07/02/17 18:55 Zofran Injection IVPUSH 4 mg Q6H PRN Administration NAUSEA AND/OR VOMITING Oxycodone HCl 5 mg 07/01/17 11:57 07/04/17 08:52 Roxicodone - PO 5 mg Q4H PRN Administration LEVEL 6-10 Pantoprazole Sodium 40 mg 07/02/17 10:00 07/04/17 09:37 Protonix - PO 40 mg DAILY JESS[facility] Administration Sitagliptin Phosphate 25 mg 07/04/17 07:00 07/04/17 08:46 Januvia - PO 25 mg DAILY@0700 JESSICA Administration AP: T2DM uncontrolled: A1c 10.4 B/L heel ulcers Neuropathy ?Gastroparesis HTN Hirsutism: Has it for many years. Doesn't want it addressed during the hopitalization. Discussed need for tight blood sugar control to hasten healing and prevent recurrent infections. Discussed option of her taking Insulin at home. Pt doen't want to do that. Wants to stay on pills for now Increase Glipizide 5 mg BID Add Januvia 25 mg QD Continue Levemir Novolog SS coverage Nutiriton consult noted Will f/u Problem List - Problems (1) Foot ulcer Code(s): L97.509 - NON-PRESSURE CHRONIC ULCER OTH PRT UNSP FOOT W UNSP SEVERITY Qualifiers: Laterality: unspecified laterality Non-pressure ulcer stage: unspecified non-pressure ulcer stage Qualified Code(s): L97.509 - Non-pressure chronic ulcer of other part of unspecified foot with unspecified severity (2) Diabetic foot ulcer Code(s): E11.621 - TYPE 2 DIABETES MELLITUS WITH FOOT ULCER; L97.509 - NON- PRESSURE CHRONIC ULCER OTH PRT UNSP FOOT W UNSP SEVERITY (3) PVD (peripheral vascular disease) Code(s): I73.9 - PERIPHERAL VASCULAR DISEASE, UNSPECIFIED (4) Type 2 diabetes mellitus Code(s): E11.9 - TYPE 2 DIABETES MELLITUS WITHOUT COMPLICATIONS Qualifiers: Diabetes mellitus [facility] insulin use: without instructional developer use Diabetes mellitus complication status: with circulatory complication Diabetes mellitus complication detail: with peripheral angiopathy with gangrene Qualified Code(s ): E11.52 - Type 2 diabetes mellitus with diabetic peripheral angiopathy with gangrene
--- NOTE | 2017-07-04 11:38 | PATH ---
Surgical Pathology Report Patient Name: ROSANA MARTINEZ Med. Rec. #: [id number] /Age/Gender: 1965 (Age: 52) / F Account: [id number] Location: [facility] MED/SURG Taken: 07/01/2017 Received: 07/01/2017 Reported: 07/04/2017 Physicians: Chato Byrnes Specimen(s) Received DEBRIDEMENT TISSUE FROM BILATERAL HEELS Clinical History Bilateral diabetic foot ulcers Final Diagnosis SKIN, BILATERAL HEELS, DEBRIDEMENT: GANGRENOUS NECROSIS. Electronically Signed Carlos Zaman M.D. Gross Description Received in formalin labeled "bilateral skin from heels," are 2 black-russell, unoriented and undesignated portions of necrotic skin measuring 3.8 x 2.8 x 0.3 cm and 4.8 x 4.5 x 0.4 cm. Ecology Professor sections are submitted in one cassette. /07/01/2017 saudi/07/01/2017
--- NOTE | 2017-07-04 11:40 | PN ---
Progress Note, Physician History of Present Illness: patient stable post debridement workign with physio - Current Medication List Current Medications: Active Medications Acetaminophen (Tylenol -) 650 mg PO Q6H PRN PRN Reason: PAIN 1-5 Amlodipine Besylate (Norvasc -) 10 mg PO DAILY [facility] Last Admin: 07/04/17 09:37 Dose: 10 mg Aspirin (Ecotrin -) 81 mg PO DAILY [facility] Last Admin: 07/04/17 09:37 Dose: 81 mg Atorvastatin Calcium (Lipitor -) 80 mg PO HS [facility] Last Admin: 07/03/17 22:52 Dose: 80 mg Carvedilol (Coreg -) 12.5 mg PO BID [facility] Last Admin: 07/04/17 09:37 Dose: 12.5 mg Clopidogrel Bisulfate (Plavix -) 75 mg PO DAILY [facility] Last Admin: 07/04/17 10:03 Dose: 75 mg Collagenase (Santyl -) 1 applic TP DAILY [facility] Last Admin: 07/04/17 09:38 Dose: Not Given Docusate Sodium (Colace -) 100 mg PO TID PRN PRN Reason: CONSTIPATION Gabapentin (Neurontin -) 300 mg PO TID [facility] Last Admin: 07/04/17 06:52 Dose: 300 mg Glipizide (Glucotrol -) 5 mg PO BID@0700,1630 [facility] Heparin Sodium (Porcine) (Heparin -) 5,000 unit SQ TID [facility] Last Admin: 07/04/17 06:52 Dose: 5,000 unit Ertapenem 1 gm/ Sodium (Chloride) 50 mls @ 50 mls/hr IVPB DAILY [facility] PRN Reason: Protocol Last Admin: 07/04/17 09:37 Dose: 50 mls/hr Vancomycin HCl (Vancomycin 1 Gm Premix -) 1 gm in 200 mls @ 133.333 mls/hr IVPB BID@0600,1800 [facility] PRN Reason: Protocol Last Admin: 07/04/17 06:51 Dose: 133.333 mls/hr Insulin Aspart (Novolog Vial Sliding Scale -) 1 vial SQ ACHS [facility] PRN Reason: Protocol Last Admin: 07/04/17 06:52 Dose: 4 units Insulin Detemir (Levemir Vial) 10 units SQ HS [facility] Last Admin: 07/03/17 10:50 Dose: 10 unit Lisinopril (Prinivil) 20 mg PO DAILY [facility] Last Admin: 07/04/17 09:37 Dose: 20 mg Ondansetron HCl (Zofran Injection) 4 mg IVPUSH Q6H PRN PRN Reason: NAUSEA AND/OR VOMITING Last Admin: 07/02/17 18:55 Dose: 4 mg Oxycodone HCl (Roxicodone -) 5 mg PO Q4H PRN PRN Reason: LEVEL 6-10 Last Admin: 07/04/17 08:52 Dose: 5 mg Pantoprazole Sodium (Protonix -) 40 mg PO DAILY [facility] Last Admin: 07/04/17 09:37 Dose: 40 mg Sitagliptin Phosphate (Januvia -) 25 mg PO DAILY@0700 [facility] Last Admin: 07/04/17 08:46 Dose: 25 mg - Objective Vital Signs: Vital Signs Temperature 99.4 F 07/04/17 06:26 Pulse Rate 96 H 07/04/17 06:26 Respiratory Rate 20 07/04/17 06:26 Blood Pressure 139/55 07/04/17 06:26 O2 Sat by Pulse Oximetry (%) 94 L 07/03/17 21:00 Constitutional: Yes: No Distress, Calm Cardiovascular: Yes: Regular Rate and Rhythm Respiratory: Yes: Regular, CTA Bilaterally Gastrointestinal: Yes: Normal Bowel Sounds, Soft Musculoskeletal: Yes: Other Extremities: Yes: Other Wound/Incision: Yes: Dressing Dry and Intact Neurological: Yes: Alert, Oriented Psychiatric: Yes: Alert, Oriented Labs: CBC, BMP 07/04/17 06:35 07/04/17 06:35 INR, PTT INR 1.09 (0.82-1.09) 06/30/17 07:00 Assessment/Plan Problem List - Problems (1) Gastroparesis Code(s): K31.84 - GASTROPARESIS (2) Diabetic foot ulcer Code(s): E11.621 - TYPE 2 DIABETES MELLITUS WITH FOOT ULCER; L97.509 - NON- PRESSURE CHRONIC ULCER OTH PRT UNSP FOOT W UNSP SEVERITY (3) Diabetic gastroparesis associated with type 2 diabetes mellitus Code(s): E11.43 - TYPE 2 DIABETES W DIABETIC AUTONOMIC (POLY)NEUROPATHY; K31.84 - GASTROPARESIS (4) Diabetic neuropathy with neurologic complication Code(s): E11.40 - TYPE 2 DIABETES MELLITUS WITH DIABETIC NEUROPATHY, UNSP; E11.49 - TYPE 2 DIABETES W OTH DIABETIC NEUROLOGICAL COMPLICATION (5) Nausea & vomiting Code(s): R11.2 - NAUSEA WITH VOMITING, UNSPECIFIED mrsa osteo plan continue current abx patient dayami need it for 4-5 weeks follow vanco levels rest as per the team
--- NOTE | 2017-07-04 19:12 | PN ---
<Shoaib Chris - Last Filed: 07/04/17 18:53> Physical Exam: SUBJECTIVE: Patient seen and examined at [facility]. Patient states that feet are unchanged and the pain is not controlled on current medications. OBJECTIVE: Vital Signs Period Temp Pulse Resp BP Sys/Rahman Pulse Ox Last 24 Hr 98.2 F-100.6 F 88-96 20-20 112-139/55-64 94-94 GENERAL: The patient is awake, alert, and fully oriented, in no acute distress. HEAD: Normal with no signs of trauma. NECK: Trachea midline, full range of motion, supple. LUNGS: Breath sounds equal, clear to auscultation bilaterally, no wheezes, no crackles, no accessory muscle use. HEART: Regular rate and rhythm, S1, S2 heard. Systolic ejection murmur appreciated at the right sternal border. ABDOMEN: Soft, nontender, nondistended, normoactive bowel sounds, no guarding, no rebound. EXTREMITIES: 2+ pulses, warm, well-perfused, no edema. NEUROLOGICAL: Cranial nerves II through X grossly intact. Normal speech, gait not observed. SKIN: Warm, dry, normal turgor, no rashes or lesions noted. Heel wounds b/l improved s/p debridement. there is still fluctuance in the center of the wound b /l. There is an area of discoloration on the lateral malleolus on the left where the skin is discolored and is tender to palpation. No fluctuance in the area. Laboratory Results - last 24 hr 07/03/17 07/04/17 07/04/17 22:51 06:35 06:35 WBC 14.3 H RBC 2.70 L Hgb 7.6 L Hct 23.2 L MCV 85.7 MCH 28.0 MCHC 32.7 RDW 14.7 Plt Count 503 H D MPV 7.7 Neutrophils % 77.2 Lymphocytes % 11.4 D Monocytes % 7.3 Eosinophils % 3.4 Basophils % 0.7 Sodium 137 Potassium 4.5 Chloride 99 Carbon Dioxide 31 Anion Gap 7 L BUN 21 H Creatinine 1.2 H Creat Clearance w eGFR 47.55 POC Glucometer 195 Random Glucose 207 H Uric Acid 5.6 Calcium 8.4 L Phosphorus 3.8 Magnesium 1.6 L Total Bilirubin 0.3 D AST 10 L ALT 13 Alkaline Phosphatase 71 Total Protein 6.4 Albumin 1.9 L 07/04/17 07/04/17 07/04/17 06:35 06:50 12:37 WBC RBC Hgb Hct MCV MCH MCHC RDW Plt Count MPV Neutrophils % Lymphocytes % Monocytes % Eosinophils % Basophils % Sodium Potassium Chloride Carbon Dioxide Anion Gap BUN Creatinine Creat Clearance w eGFR POC Glucometer 224 177 Random Glucose Uric Acid Cancelled Calcium Phosphorus Magnesium Total Bilirubin AST ALT Alkaline Phosphatase Total Protein Albumin 07/04/17 17:15 WBC RBC Hgb Hct MCV MCH MCHC RDW Plt Count MPV Neutrophils % Lymphocytes % Monocytes % Eosinophils % Basophils % Sodium Potassium Chloride Carbon Dioxide Anion Gap BUN Creatinine Creat Clearance w eGFR POC Glucometer 148 Random Glucose Uric Acid Calcium Phosphorus Magnesium Total Bilirubin AST ALT Alkaline Phosphatase Total Protein Albumin Active Medications Generic Name Dose Route Start Last Admin Trade Name Freq PRN Reason Stop Dose Admin Acetaminophen 650 mg 07/04/17 08:54 Tylenol - PO Q6H PRN PAIN 1-5 Amlodipine Besylate 10 mg 07/02/17 10:00 07/04/17 09:37 Norvasc - PO 10 mg DAILY JESSICA Administration Aspirin 81 mg 07/02/17 10:00 07/04/17 09:37 Ecotrin - PO 81 mg DAILY JESSICA Administration Atorvastatin Calcium 80 mg 07/01/17 22:00 07/03/17 22:52 Lipitor - PO 80 mg HS JESSICA Administration Carvedilol 12.5 mg 07/01/17 22:00 07/04/17 09:37 Coreg - PO 12.5 mg BID JESSICA Administration Clopidogrel Bisulfate 75 mg 07/02/17 10:00 07/04/17 10:03 Plavix - PO 75 mg DAILY JESSICA Administration Collagenase 1 applic 07/02/17 10:00 07/04/17 09:38 Santyl - TP Not Given DAILY [facility] Docusate Sodium 100 mg 07/01/17 11:57 Colace - PO TID PRN CONSTIPATION Gabapentin 300 mg 07/01/17 14:00 07/04/17 13:41 Neurontin - PO 300 mg TID JESSICA Administration Glipizide 5 mg 07/04/17 16:30 07/04/17 17:27 Glucotrol - PO 5 mg BID@0700,1630 JESSICA Administration Heparin Sodium (Porcine) 5,000 unit 07/01/17 14:00 07/04/17 13:41 Heparin - SQ 5,000 unit TID JESSICA Administration Ertapenem 1 gm/ Sodium 50 mls @ 50 mls/hr 07/02/17 10:00 07/04/17 09:37 Chloride IVPB 50 mls/hr DAILY JESSICA Administration Protocol Vancomycin HCl 1 gm in 200 mls @ 133.333 mls/hr 07/02/17 18:00 07/04/17 06:51 Vancomycin 1 Gm Premix - IVPB 133.333 mls/hr BID@0600,1800 [facility] Administration Protocol Insulin Aspart 1 vial 07/01/17 16:30 07/04/17 17:25 Novolog Vial Sliding Scale - SQ Not Given ACHS [facility] Protocol Insulin Detemir 10 units 07/01/17 22:00 07/03/17 10:50 Levemir Vial SQ 10 unit HS [facility] Administration Lisinopril 20 mg 07/02/17 10:00 07/04/17 09:37 Prinivil PO 20 mg DAILY EJSSICA Administration Ondansetron HCl 4 mg 07/01/17 11:57 07/02/17 18:55 Zofran Injection IVPUSH 4 mg Q6H PRN Administration NAUSEA AND/OR VOMITING Oxycodone HCl 5 mg 07/01/17 11:57 07/04/17 08:52 Roxicodone - PO 5 mg Q4H PRN Administration LEVEL 6-10 Pantoprazole Sodium 40 mg 07/02/17 10:00 07/04/17 09:37 Protonix - PO 40 mg DAILY JESSICA Administration Sitagliptin Phosphate 25 mg 07/04/17 07:00 07/04/17 08:46 Januvia - PO 25 mg DAILY@0700 [facility] Administration ASSESSMENT/PLAN: 51yo F with PMHx of uncontrolled DM2 admitted for the treatment of sepsis 2/2 infected DM foot ulcer. #Sepsis 2/2 infected diabetic foot ulcer -ID consult -ertapenem 1gm daily (day 8) (9 days total abx) -Per ID, Patient will need 4-5 weeks of ABX -pain control: PO percocet. tylenol added today -POD 3: OR debridement w/ Dr. Byrnes today #Peripheral Vascular Dz -asa, plavix (holding in preparation for surgery, last administered 04/30) #Nausea/Vomiting likely 2/2 DM gastroparesis -Patient refusing GI workup. -Zofran 4mg IV prn nausea #TITA likely 2/2 dehydration 2/2 sepsis/vomiting -avoid nephrotoxic drugs -holding home ACEI #HTN -c/w home norvasc 10mg daily -c/w home coreg 12.5mg daily #DM -Endocrine consulted; started the patient on Januvia 25mg daily and Glucotrol 5mg BID as pt refusing insulin -BGM ACHS -ISS ACHS -c/w home gabapentin 300 TID #FEN -no fluids indicated -monitor lytes. replete PRN -diabetic diet #Prophylaxsis -Pt on plavix # Dispo -Admit to inpatient med/surg -Patient will need PICC and terminal system operator ABX, preferably at a SNF. -Patient's insurance lapses 07/05 however. Informed patient that she must renew coverage on her own or have a family nicole do it. -the remainder of the patient's care, including ABX and placement, will be exceedingly difficult without coverage -working with social work and case management to resolve this issue Visit type - Emergency Visit Emergency Visit: Yes ED Registration Date: 06/23/17 Care time: The patient presented to the Emergency Department on the above date and was hospitalized for further evaluation of their emergent condition. - New Patient This patient is new to me today: No - Critical Care Critical Care patient: No <Diandra Tabares - Last Filed: 07/04/17 20:57> Physical Exam: Patient is c/o having severe pain of lower extremities, pain medication was given. Patient possible Picc line with arrangment of IV antibiotic as on outpatient. As per ID 4-5 wks of IV antibiotic, vanco and ertapenem. will discuss with the patient. Vital Signs Temperature 100.6 F H 07/04/17 16:15 Pulse Rate 90 07/04/17 16:15 Respiratory Rate 20 07/04/17 16:15 Blood Pressure 133/63 07/04/17 16:15 O2 Sat by Pulse Oximetry (%) 94 L 07/04/17 09:00 CBCD WBC 14.3 K/mm3 (4.0-10.0) H 07/04/17 06:35 RBC 2.70 M/mm3 (3.60-5.2) L 07/04/17 06:35 Hgb 7.6 GM/dL (10.7-15.3) L 07/04/17 06:35 Hct 23.2 % (32.4-45.2) L 07/04/17 06:35 MCV 85.7 fl (80-96) 07/04/17 06:35 MCHC 32.7 g/dl (32.0-36.0) 07/04/17 06:35 RDW 14.7 % (11.6-15.6) 07/04/17 06:35 Plt Count 503 K/MM3 (134-434) H D 07/04/17 06:35 MPV 7.7 fl (7.5-11.1) 07/04/17 06:35 CMP Sodium 137 mmol/L (136-145) 07/04/17 06:35 Potassium 4.5 mmol/L (3.5-5.1) 07/04/17 06:35 Chloride 99 mmol/L (98-107) 07/04/17 06:35 Carbon Dioxide 31 mmol/L (21-32) 07/04/17 06:35 Anion Gap 7 (8-16) L 07/04/17 06:35 BUN 21 mg/dL (7-18) H 07/04/17 06:35 Creatinine 1.2 mg/dL (0.55-1.02) H 07/04/17 06:35 Creat Clearance w eGFR 47.55 (>60) 07/04/17 06:35 Random Glucose 207 mg/dL (74-106) H 07/04/17 06:35 Calcium 8.4 mg/dL (8.5-10.1) L 07/04/17 06:35 Total Bilirubin 0.3 mg/dL (0.2-1.0) D 07/04/17 06:35 AST 10 U/L (15-37) L 07/04/17 06:35 ALT 13 U/L (12-78) 07/04/17 06:35 Alkaline Phosphatase 71 U/L (45-117) 07/04/17 06:35 Total Protein 6.4 g/dl (6.4-8.2) 07/04/17 06:35 Albumin 1.9 g/dl (3.4-5.0) L 07/04/17 06:35 CARDIAC ENZYMES Troponin I < 0.02 ng/ml (0.00-0.05) 06/23/17 20:31 Current Medications Generic Name Dose Route Start Last Admin Trade Name Freq PRN Reason Stop Dose Admin Acetaminophen 650 mg 07/04/17 08:54 Tylenol - PO Q6H PRN PAIN 1-5 Amlodipine Besylate 10 mg 07/02/17 10:00 07/04/17 09:37 Norvasc - PO 10 mg DAILY JESSICA Administration Aspirin 81 mg 07/02/17 10:00 07/04/17 09:37 Ecotrin - PO 81 mg DAILY JESSICA Administration Atorvastatin Calcium 80 mg 07/01/17 22:00 07/03/17 22:52 Lipitor - PO 80 mg HS JESSICA Administration Carvedilol 12.5 mg 07/01/17 22:00 07/04/17 09:37 Coreg - PO 12.5 mg BID [facility] Administration Clopidogrel Bisulfate 75 mg 07/02/17 10:00 07/04/17 10:03 Plavix - PO 75 mg DAILY JESSICA Administration Collagenase 1 applic 07/02/17 10:00 07/04/17 09:38 Santyl - TP Not Given DAILY [facility] Docusate Sodium 100 mg 07/01/17 11:57 Colace - PO TID PRN CONSTIPATION Gabapentin 300 mg 07/01/17 14:00 07/04/17 13:41 Neurontin - PO 300 mg TID [facility] Administration Glipizide 5 mg 07/04/17 16:30 07/04/17 17:27 Glucotrol - PO 5 mg BID@0700,1630 JESSICA Administration Heparin Sodium (Porcine) 5,000 unit 07/01/17 14:00 07/04/17 13:41 Heparin - SQ 5,000 unit TID [facility] Administration Ertapenem 1 gm/ Sodium 50 mls @ 50 mls/hr 07/02/17 10:00 07/04/17 09:37 Chloride IVPB 50 mls/hr DAILY [facility] Administration Protocol Vancomycin HCl 1 gm in 200 mls @ 133.333 mls/hr 07/02/17 18:00 07/04/17 06:51 Vancomycin 1 Gm Premix - IVPB 133.333 mls/hr BID@0600,1800 [facility] Administration Protocol Insulin Aspart 1 vial 07/01/17 16:30 07/04/17 17:25 Novolog Vial Sliding Scale - SQ Not Given ACHS [facility] Protocol Insulin Detemir 10 units 07/01/17 22:00 07/03/17 10:50 Levemir Vial SQ 10 unit HS JESSICA Administration Lisinopril 20 mg 07/02/17 10:00 07/04/17 09:37 Prinivil PO 20 mg DAILY JESSICA Administration Ondansetron HCl 4 mg 07/01/17 11:57 07/02/17 18:55 Zofran Injection IVPUSH 4 mg Q6H PRN Administration NAUSEA AND/OR VOMITING Oxycodone HCl 5 mg 07/01/17 11:57 07/04/17 08:52 Roxicodone - PO 5 mg Q4H PRN Administration LEVEL 6-10 Pantoprazole Sodium 40 mg 07/02/17 10:00 07/04/17 09:37 Protonix - PO 40 mg DAILY [facility] Administration Sitagliptin Phosphate 25 mg 07/04/17 07:00 07/04/17 08:46 Januvia - PO 25 mg DAILY@0700 [facility] Administration Home Medications Medication Instructions Recorded Amlodipine Besylate [Norvasc -] 10 mg PO DAILY #30 tablet 03/25/17 Aspirin Coated [Ecotrin -] 81 mg PO DAILY #30 tablet.ec 03/25/17 Atorvastatin Ca [Lipitor] 80 mg PO HS #30 tablet 03/25/17 Carvedilol [Coreg -] 12.5 mg PO BID #60 tablet 03/25/17 Clopidogrel Bisulfate [Plavix -] 75 mg PO DAILY #30 tablet 03/25/17 Docusate Sodium [Colace -] 100 mg PO TID capsule 03/25/17 Lancets [Lancets Ultra Thin] 1 each ACHS #1 box 03/25/17 Lisinopril [Prinivil] 20 mg PO DAILY #30 tablet 03/25/17 Ondansetron [Zofran Odt -] 4 mg SL Q6H PRN #30 tab.rapdis 03/25/17 Sitagliptin Phosphate [Januvia -] 25 mg PO DAILY@0700 #30 tab 03/25/17 Gabapentin [Neurontin] 300 mg PO TID 04/27/17 Tramadol HCl 50 mg PO PRN PRN 04/27/17 Collagenase Clostridium Hist. 1 applic TP DAILY #90 oint...g. 05/20/17 [Santyl] Glipizide 5 mg PO BID 05/20/17
[2017-07-05] MEDS: CARVEDILOL 12.5 MG TABLET (FP) PO SCH ×3 (00:12→22:47)
[2017-07-05] MEDS: HEPARIN NA (PORCINE) 5,000 UNITS/ML 1ML VIAL SQ SCH ×4 (00:12→22:47)
[2017-07-05] MEDS: INSULIN DETEMIR 100 UNITS/ML MDV SQ SCH (00:12)
[2017-07-05] MEDS: ATORVASTATIN CA 80 MG TABLET (FP) PO SCH ×2 (00:13→22:47)
[2017-07-05] MEDS: INSULIN SLIDING SCALE (NOVOLOG) 1 VIAL SQ SCH ×5 (00:13→22:46)
[2017-07-05] MEDS: GABAPENTIN 300 MG CAPSULE (FP) PO SCH ×4 (00:13→22:47)
[2017-07-05] MEDS: oxyCODONE HCL 5 MG TABLET PO PRN ×3 (00:14→22:48)
[2017-07-05] MEDS: glipiZIDE 5 MG TABLET (FP) PO SCH ×2 (06:22→17:28)
--- NOTE | 2017-07-05 08:58 | PN ---
Progress Note (short form) - Note Progress Note: Vital Signs Temperature 98 F 07/05/17 06:00 Pulse Rate 84 07/05/17 06:00 Respiratory Rate 20 07/05/17 06:00 Blood Pressure 114/58 07/05/17 06:00 O2 Sat by Pulse Oximetry (%) 94 L 07/04/17 21:00 GENERAL: The patient is awake, alert, and fully oriented, in no acute distress. HEAD: Normal with no signs of trauma. EYES: PERRL, extraocular movements intact, sclera anicteric, conjunctiva clear. No ptosis. ENT: Ears normal, nares patent, oropharynx clear without exudates, moist mucous membranes. NECK: Trachea midline, full range of motion, supple. LUNGS: Breath sounds equal, clear to auscultation bilaterally, no wheezes, no crackles, no accessory muscle use. HEART: Regular rate and rhythm, S1, S2 without murmur, rub or gallop. ABDOMEN: Soft, nontender, nondistended, normoactive bowel sounds, no guarding, no rebound, no hepatosplenomegaly, no masses. EXTREMITIES: 2+ pulses, warm, wrapped in bandages both Lower extremities NEUROLOGICAL: Cranial nerves II through XII grossly intact. Normal speech, gait not observed. PSYCH: Normal mood, normal affect. SKIN: Warm, dry, normal turgor, no rashes or lesions noted CBCD WBC 14.3 K/mm3 (4.0-10.0) H 07/04/17 06:35 RBC 2.70 M/mm3 (3.60-5.2) L 07/04/17 06:35 Hgb 7.6 GM/dL (10.7-15.3) L 07/04/17 06:35 Hct 23.2 % (32.4-45.2) L 07/04/17 06:35 MCV 85.7 fl (80-96) 07/04/17 06:35 MCHC 32.7 g/dl (32.0-36.0) 07/04/17 06:35 RDW 14.7 % (11.6-15.6) 07/04/17 06:35 Plt Count 503 K/MM3 (134-434) H D 07/04/17 06:35 MPV 7.7 fl (7.5-11.1) 07/04/17 06:35 CMP Sodium 137 mmol/L (136-145) 07/04/17 06:35 Potassium 4.5 mmol/L (3.5-5.1) 07/04/17 06:35 Chloride 99 mmol/L (98-107) 07/04/17 06:35 Carbon Dioxide 31 mmol/L (21-32) 07/04/17 06:35 Anion Gap 7 (8-16) L 07/04/17 06:35 BUN 21 mg/dL (7-18) H 07/04/17 06:35 Creatinine 1.2 mg/dL (0.55-1.02) H 07/04/17 06:35 Creat Clearance w eGFR 47.55 (>60) 07/04/17 06:35 Random Glucose 207 mg/dL (74-106) H 07/04/17 06:35 Calcium 8.4 mg/dL (8.5-10.1) L 07/04/17 06:35 Total Bilirubin 0.3 mg/dL (0.2-1.0) D 07/04/17 06:35 AST 10 U/L (15-37) L 07/04/17 06:35 ALT 13 U/L (12-78) 07/04/17 06:35 Alkaline Phosphatase 71 U/L (45-117) 07/04/17 06:35 Total Protein 6.4 g/dl (6.4-8.2) 07/04/17 06:35 Albumin 1.9 g/dl (3.4-5.0) L 07/04/17 06:35 CARDIAC ENZYMES Troponin I < 0.02 ng/ml (0.00-0.05) 06/23/17 20:31 Current Medications Generic Name Dose Route Start Last Admin Trade Name Freq PRN Reason Stop Dose Admin Acetaminophen 650 mg 07/04/17 08:54 Tylenol - PO Q6H PRN PAIN 1-5 Amlodipine Besylate 10 mg 07/02/17 10:00 07/04/17 09:37 Norvasc - PO 10 mg DAILY JESSICA Administration Aspirin 81 mg 07/02/17 10:00 07/04/17 09:37 Ecotrin - PO 81 mg DAILY JESSICA Administration Atorvastatin Calcium 80 mg 07/01/17 22:00 07/05/17 00:13 Lipitor - PO 80 mg HS JESSICA Administration Carvedilol 12.5 mg 07/01/17 22:00 07/05/17 00:12 Coreg - PO 12.5 mg BID [facility] Administration Clopidogrel Bisulfate 75 mg 07/02/17 10:00 07/04/17 10:03 Plavix - PO 75 mg DAILY JESSICA Administration Collagenase 1 applic 07/02/17 10:00 07/04/17 09:38 Santyl - TP Not Given DAILY [facility] Docusate Sodium 100 mg 07/01/17 11:57 Colace - PO TID PRN CONSTIPATION Gabapentin 300 mg 07/01/17 14:00 07/05/17 06:22 Neurontin - PO 300 mg TID [facility] Administration Glipizide 5 mg 07/04/17 16:30 07/05/17 06:22 Glucotrol - PO 5 mg BID@0700,1630 JESSICA Administration Heparin Sodium (Porcine) 5,000 unit 07/01/17 14:00 07/05/17 06:22 Heparin - SQ 5,000 unit TID [facility] Administration Ertapenem 1 gm/ Sodium 50 mls @ 50 mls/hr 07/02/17 10:00 07/04/17 09:37 Chloride IVPB 50 mls/hr DAILY [facility] Administration Protocol Vancomycin HCl 1 gm in 200 mls @ 133.333 mls/hr 07/02/17 18:00 07/04/17 21:27 Vancomycin 1 Gm Premix - IVPB Not Given BID@0600,1800 [facility] Protocol Insulin Aspart 1 vial 07/01/17 16:30 07/05/17 06:20 Novolog Vial Sliding Scale - SQ Not Given ACHS [facility] Protocol Insulin Detemir 10 units 07/01/17 22:00 07/05/17 00:12 Levemir Vial SQ 10 unit HS [facility] Administration Lisinopril 20 mg 07/02/17 10:00 07/04/17 09:37 Prinivil PO 20 mg DAILY [facility] Administration Ondansetron HCl 4 mg 07/01/17 11:57 07/02/17 18:55 Zofran Injection IVPUSH 4 mg Q6H PRN Administration NAUSEA AND/OR VOMITING Oxycodone HCl 5 mg 07/01/17 11:57 07/05/17 00:14 Roxicodone - PO 5 mg Q4H PRN Administration LEVEL 6-10 Pantoprazole Sodium 40 mg 07/02/17 10:00 07/04/17 09:37 Protonix - PO 40 mg DAILY JESSICA Administration Sitagliptin Phosphate 25 mg 07/04/17 07:00 07/04/17 08:46 Januvia - PO 25 mg DAILY@0700 [facility] Administration Home Medications Medication Instructions Recorded Amlodipine Besylate [Norvasc -] 10 mg PO DAILY #30 tablet 03/25/17 Aspirin Coated [Ecotrin -] 81 mg PO DAILY #30 tablet.ec 03/25/17 Atorvastatin Ca [Lipitor] 80 mg PO HS #30 tablet 03/25/17 Carvedilol [Coreg -] 12.5 mg PO BID #60 tablet 03/25/17 Clopidogrel Bisulfate [Plavix -] 75 mg PO DAILY #30 tablet 03/25/17 Docusate Sodium [Colace -] 100 mg PO TID capsule 03/25/17 Lancets [Lancets Ultra Thin] 1 each ACHS #1 box 03/25/17 Lisinopril [Prinivil] 20 mg PO DAILY #30 tablet 03/25/17 Ondansetron [Zofran Odt -] 4 mg SL Q6H PRN #30 tab.rapdis 03/25/17 Sitagliptin Phosphate [Januvia -] 25 mg PO DAILY@0700 #30 tab 03/25/17 Gabapentin [Neurontin] 300 mg PO TID 04/27/17 Tramadol HCl 50 mg PO PRN PRN 04/27/17 Collagenase Clostridium Hist. 1 applic TP DAILY #90 oint...g. 05/20/17 [Santyl] Glipizide 5 mg PO BID 05/20/17 ASSESSMENT/PLAN: Patient is a 52 y/o woman with HTN, DM, PAD, depression, non compliance with medical recommendations presented with bilateral heel ulcers, left heel ulcer with surrounding cellulitis and fluctuance. 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 #HTN continue meds # Anemia will repeat the levels in am with type and screen DVT Px: Heparin
--- NOTE | 2017-07-05 09:09 | PN ---
Teaching Attending Note Name of Resident: Shoaib Chris ATTENDING PHYSICIAN STATEMENT I saw and evaluated the patient. I reviewed the resident's note and discussed the case with the resident. I agree with the resident's findings and plan as documented. SUBJECTIVE: Patient has no new complains. Comfrotable, no fever or chills, no shortness of breath. Vital Signs Temperature 98 F 07/05/17 06:00 Pulse Rate 84 07/05/17 06:00 Respiratory Rate 20 07/05/17 06:00 Blood Pressure 114/58 07/05/17 06:00 O2 Sat by Pulse Oximetry (%) 94 L 07/04/17 21:00 GENERAL: The patient is awake, alert, and fully oriented, in no acute distress. HEAD: Normal with no signs of trauma. EYES: PERRL, extraocular movements intact, sclera anicteric, conjunctiva clear. No ptosis. ENT: Ears normal, nares patent, oropharynx clear without exudates, moist mucous membranes. NECK: Trachea midline, full range of motion, supple. LUNGS: Breath sounds equal, clear to auscultation bilaterally, no wheezes, no crackles, no accessory muscle use. HEART: Regular rate and rhythm, S1, S2 without murmur, rub or gallop. ABDOMEN: Soft, nontender, nondistended, normoactive bowel sounds, no guarding, no rebound, no hepatosplenomegaly, no masses. EXTREMITIES: 2+ pulses, warm, wrapped in bandages both Lower extremities NEUROLOGICAL: Cranial nerves II through XII grossly intact. Normal speech, gait not observed. PSYCH: Normal mood, normal affect. SKIN: Warm, dry, normal turgor, no rashes or lesions noted CBCD WBC 14.3 K/mm3 (4.0-10.0) H 07/04/17 06:35 RBC 2.70 M/mm3 (3.60-5.2) L 07/04/17 06:35 Hgb 7.6 GM/dL (10.7-15.3) L 07/04/17 06:35 Hct 23.2 % (32.4-45.2) L 07/04/17 06:35 MCV 85.7 fl (80-96) 07/04/17 06:35 MCHC 32.7 g/dl (32.0-36.0) 07/04/17 06:35 RDW 14.7 % (11.6-15.6) 07/04/17 06:35 Plt Count 503 K/MM3 (134-434) H D 07/04/17 06:35 MPV 7.7 fl (7.5-11.1) 07/04/17 06:35 CMP Sodium 137 mmol/L (136-145) 07/04/17 06:35 Potassium 4.5 mmol/L (3.5-5.1) 07/04/17 06:35 Chloride 99 mmol/L (98-107) 07/04/17 06:35 Carbon Dioxide 31 mmol/L (21-32) 07/04/17 06:35 Anion Gap 7 (8-16) L 07/04/17 06:35 BUN 21 mg/dL (7-18) H 07/04/17 06:35 Creatinine 1.2 mg/dL (0.55-1.02) H 07/04/17 06:35 Creat Clearance w eGFR 47.55 (>60) 07/04/17 06:35 Random Glucose 207 mg/dL (74-106) H 07/04/17 06:35 Calcium 8.4 mg/dL (8.5-10.1) L 07/04/17 06:35 Total Bilirubin 0.3 mg/dL (0.2-1.0) D 07/04/17 06:35 AST 10 U/L (15-37) L 07/04/17 06:35 ALT 13 U/L (12-78) 07/04/17 06:35 Alkaline Phosphatase 71 U/L (45-117) 07/04/17 06:35 Total Protein 6.4 g/dl (6.4-8.2) 07/04/17 06:35 Albumin 1.9 g/dl (3.4-5.0) L 07/04/17 06:35 CARDIAC ENZYMES Troponin I < 0.02 ng/ml (0.00-0.05) 06/23/17 20:31 Current Medications Generic Name Dose Route Start Last Admin Trade Name Freq PRN Reason Stop Dose Admin Acetaminophen 650 mg 07/04/17 08:54 Tylenol - PO Q6H PRN PAIN 1-5 Amlodipine Besylate 10 mg 07/02/17 10:00 07/04/17 09:37 Norvasc - PO 10 mg DAILY [facility] Administration Aspirin 81 mg 07/02/17 10:00 07/04/17 09:37 Ecotrin - PO 81 mg DAILY [facility] Administration Atorvastatin Calcium 80 mg 07/01/17 22:00 07/05/17 00:13 Lipitor - PO 80 mg HS [facility]ESS[facility] Administration Carvedilol 12.5 mg 07/01/17 22:00 07/05/17 00:12 Coreg - PO 12.5 mg BID [facility] Administration Clopidogrel Bisulfate 75 mg 07/02/17 10:00 07/04/17 10:03 Plavix - PO 75 mg DAILY [facility] Administration Collagenase 1 applic 07/02/17 10:00 07/04/17 09:38 Santyl - TP Not Given DAILY [facility] Docusate Sodium 100 mg 07/01/17 11:57 Colace - PO TID PRN CONSTIPATION Gabapentin 300 mg 07/01/17 14:00 07/05/17 06:22 Neurontin - PO 300 mg TID [facility] Administration Glipizide 5 mg 07/04/17 16:30 07/05/17 06:22 Glucotrol - PO 5 mg BID@0700,1630 [facility] Administration Heparin Sodium (Porcine) 5,000 unit 07/01/17 14:00 07/05/17 06:22 Heparin - SQ 5,000 unit TID [facility] Administration Ertapenem 1 gm/ Sodium 50 mls @ 50 mls/hr 07/02/17 10:00 07/04/17 09:37 Chloride IVPB 50 mls/hr DAILY [facility] Administration Protocol Vancomycin HCl 1 gm in 200 mls @ 133.333 mls/hr 07/02/17 18:00 07/04/17 21:27 Vancomycin 1 Gm Premix - IVPB Not Given BID@0600,1800 [facility] Protocol Insulin Aspart 1 vial 07/01/17 16:30 07/05/17 06:20 Novolog Vial Sliding Scale - SQ Not Given ACHS [facility] Protocol Insulin Detemir 10 units 07/01/17 22:00 07/05/17 00:12 Levemir Vial SQ 10 unit HS [facility] Administration Lisinopril 20 mg 07/02/17 10:00 07/04/17 09:37 Prinivil PO 20 mg DAILY [facility] Administration Ondansetron HCl 4 mg 07/01/17 11:57 07/02/17 18:55 Zofran Injection IVPUSH 4 mg Q6H PRN Administration NAUSEA AND/OR VOMITING Oxycodone HCl 5 mg 07/01/17 11:57 07/05/17 00:14 Roxicodone - PO 5 mg Q4H PRN Administration LEVEL 6-10 Pantoprazole Sodium 40 mg 07/02/17 10:00 07/04/17 09:37 Protonix - PO 40 mg DAILY [facility] Administration Sitagliptin Phosphate 25 mg 07/04/17 07:00 07/04/17 08:46 Januvia - PO 25 mg DAILY@0700 [facility] Administration Home Medications Medication Instructions Recorded Amlodipine Besylate [Norvasc -] 10 mg PO DAILY #30 tablet 03/25/17 Aspirin Coated [Ecotrin -] 81 mg PO DAILY #30 tablet.ec 03/25/17 Atorvastatin Ca [Lipitor] 80 mg PO HS #30 tablet 03/25/17 Carvedilol [Coreg -] 12.5 mg PO BID #60 tablet 03/25/17 Clopidogrel Bisulfate [Plavix -] 75 mg PO DAILY #30 tablet 03/25/17 Docusate Sodium [Colace -] 100 mg PO TID capsule 03/25/17 Lancets [Lancets Ultra Thin] 1 each ACHS #1 box 03/25/17 Lisinopril [Prinivil] 20 mg PO DAILY #30 tablet 03/25/17 Ondansetron [Zofran Odt -] 4 mg SL Q6H PRN #30 tab.rapdis 03/25/17 Sitagliptin Phosphate [Januvia -] 25 mg PO DAILY@0700 #30 tab 03/25/17 Gabapentin [Neurontin] 300 mg PO TID 04/27/17 Tramadol HCl 50 mg PO PRN PRN 04/27/17 Collagenase Clostridium Hist. 1 applic TP DAILY #90 oint...g. 05/20/17 [Santyl] Glipizide 5 mg PO BID 05/20/17 ASSESSMENT/PLAN: Patient is a 52 y/o woman with HTN, DM, PAD, depression, non compliance with medical recommendations presented with bilateral heel ulcers, left heel ulcer with surrounding cellulitis and fluctuance. # Acute Osteo infection of both heels ulcer L>R on Vancomycin and Ertapenm continue, ID on the case , discussed with. Patient will be going for PICC line in am. Patient will discharged to Rehab to [facility] in am, as per ID will need for 4-5 weeks of IV antibiotics and vanco levels weekly to be followed. Level should be not more than 15. # PAD, on plavix and lipitor continue # T2DM On Levemir and sliding scale, follow with upon discharge from Rehab. #HTN continue meds # Anemia will repeat the levels in am with type and screen DVT Px: Heparin
[2017-07-05] MEDS ORDERED: PT OWN MED DRAWER 7, Y5N ONE (10:00)
[2017-07-05] MEDS: ERTAPENEM SODIUM 1 GM in SODIUM CHLORIDE 50 ML IVPB SCH (10:04)
[2017-07-05] MEDS: COLLAGENASE CLOSTRIDIUM HIST. 30 GRAMS TUBE TP SCH (10:04)
[2017-07-05] MEDS: PANTOPRAZOLE 40 MG TABLET (FP) PO SCH (10:04)
[2017-07-05] MEDS: LISINOPRIL 20 MG TABLET (FP) PO SCH (10:04)
[2017-07-05] MEDS: ASPIRIN COATED 81 MG TABLET.EC PO SCH (10:04)
[2017-07-05] MEDS: amLODIPine BESYLATE 10 MG TABLET (FP) PO SCH (10:04)
[2017-07-05] MEDS: CLOPIDOGREL BISULFATE 75 MG TABLET (FP) PO SCH (10:04)
--- NOTE | 2017-07-05 11:30 | PN ---
Progress Note (short form) - Note Progress Note: Denies any new complaints Still with feet pain Improving blood sugar Vital Signs Period Temp Pulse Resp BP Sys/Rahman Pulse Ox Last 24 Hr 98 F-100.6 F 84-90 20-20 114-133/58-69 94 PE: AOx3 Neck: supple, No JVD HEENT: PERRL, EOMI Lungs: CTA CVS: S1S2 Abd: Benign Ext: B/L leg dressing Neuro: No focal deficit CMP Sodium 137 mmol/L (136-145) 07/04/17 06:35 Potassium 4.5 mmol/L (3.5-5.1) 07/04/17 06:35 Chloride 99 mmol/L (98-107) 07/04/17 06:35 Carbon Dioxide 31 mmol/L (21-32) 07/04/17 06:35 Anion Gap 7 (8-16) L 07/04/17 06:35 BUN 21 mg/dL (7-18) H 07/04/17 06:35 Creatinine 1.2 mg/dL (0.55-1.02) H 07/04/17 06:35 Creat Clearance w eGFR 47.55 (>60) 07/04/17 06:35 POC Glucometer 94 UNITS (80-120) 07/05/17 05:58 Random Glucose 207 mg/dL (74-106) H 07/04/17 06:35 Hemoglobin A1c % 10.4 % (4.8-6.0) H 06/24/17 06:30 Lactic Acid 0.7 mmol/L (0.0-2.0) 06/24/17 07:00 Uric Acid 5.6 mg/dL (2.6-7.2) 07/04/17 06:35 Calcium 8.4 mg/dL (8.5-10.1) L 07/04/17 06:35 Phosphorus 3.8 mg/dL (2.5-4.9) 07/04/17 06:35 Magnesium 1.6 mg/dL (1.8-2.4) L 07/04/17 06:35 Total Bilirubin 0.3 mg/dL (0.2-1.0) D 07/04/17 06:35 AST 10 U/L (15-37) L 07/04/17 06:35 ALT 13 U/L (12-78) 07/04/17 06:35 Alkaline Phosphatase 71 U/L (45-117) 07/04/17 06:35 Troponin I < 0.02 ng/ml (0.00-0.05) 06/23/17 20:31 C-Reactive Protein 12.6 MG/DL (0.00-0.3) H 06/29/17 06:20 Total Protein 6.4 g/dl (6.4-8.2) 07/04/17 06:35 Albumin 1.9 g/dl (3.4-5.0) L 07/04/17 06:35 Lipase 83 U/L (73-393) 06/24/17 06:30 Serum , Qual Negative 07/01/17 10:02 Current Medications Generic Name Dose Route Start Last Admin Trade Name Freq PRN Reason Stop Dose Admin Acetaminophen 650 mg 07/04/17 08:54 Tylenol - PO Q6H PRN PAIN 1-5 Amlodipine Besylate 10 mg 07/02/17 10:00 07/05/17 10:04 Norvasc - PO 10 mg DAILY [facility] Administration Aspirin 81 mg 07/02/17 10:00 07/05/17 10:04 Ecotrin - PO 81 mg DAILY [facility] Administration Atorvastatin Calcium 80 mg 07/01/17 22:00 07/05/17 00:13 Lipitor - PO 80 mg HS [facility] Administration Carvedilol 12.5 mg 07/01/17 22:00 07/05/17 10:04 Coreg - PO 12.5 mg BID [facility] Administration Clopidogrel Bisulfate 75 mg 07/02/17 10:00 07/05/17 10:04 Plavix - PO 75 mg DAILY [facility] Administration Collagenase 1 applic 07/02/17 10:00 07/05/17 10:04 Santyl - TP 1 applic DAILY [facility] Administration Docusate Sodium 100 mg 07/01/17 11:57 Colace - PO TID PRN CONSTIPATION Gabapentin 300 mg 07/01/17 14:00 07/05/17 06:22 Neurontin - PO 300 mg TID [facility] Administration Glipizide 5 mg 07/04/17 16:30 07/05/17 06:22 Glucotrol - PO 5 mg BID@0700,1630 [facility] Administration Heparin Sodium (Porcine) 5,000 unit 07/01/17 14:00 07/05/17 06:22 Heparin - SQ 5,000 unit TID [facility] Administration Ertapenem 1 gm/ Sodium 50 mls @ 50 mls/hr 07/02/17 10:00 07/05/17 10:04 Chloride IVPB 50 mls/hr DAILY [facility] Administration Protocol Vancomycin HCl 1 gm in 200 mls @ 133.333 mls/hr 07/02/17 18:00 07/04/17 21:27 Vancomycin 1 Gm Premix - IVPB Not Given BID@0600,1800 [facility] Protocol Insulin Aspart 1 vial 07/01/17 16:30 07/05/17 06:20 Novolog Vial Sliding Scale - SQ Not Given ACHS [facility] Protocol Insulin Detemir 10 units 07/01/17 22:00 07/05/17 00:12 Levemir Vial SQ 10 unit HS [facility] Administration Lisinopril 20 mg 07/02/17 10:00 07/05/17 10:04 Prinivil PO 20 mg DAILY [facility] Administration Ondansetron HCl 4 mg 07/01/17 11:57 07/02/17 18:55 Zofran Injection IVPUSH 4 mg Q6H PRN Administration NAUSEA AND/OR VOMITING Oxycodone HCl 5 mg 07/01/17 11:57 07/05/17 00:14 Roxicodone - PO 5 mg Q4H PRN Administration LEVEL 6-10 Pantoprazole Sodium 40 mg 07/02/17 10:00 07/05/17 10:04 Protonix - PO 40 mg DAILY [facility] Administration Sitagliptin Phosphate 25 mg 07/04/17 07:00 07/04/17 08:46 Januvia - PO 25 mg DAILY@0700 [facility] Administration AP: T2DM uncontrolled: A1c 10.4, Improving blood sugar B/L heel ulcers Neuropathy ?Gastroparesis HTN Hirsutism: Has it for many years. Doesn't want it addressed during the hopitalization. Glipizide 5 mg BID Januvia 25 mg QD D/C Levemir, will monitor blood sugar off Levemir now now Novolog SS coverage Nutiriton consult noted Will f/u CMP Sodium 137 mmol/L (136-145) 07/04/17 06:35 Potassium 4.5 mmol/L (3.5-5.1) 07/04/17 06:35 Chloride 99 mmol/L (98-107) 07/04/17 06:35 Carbon Dioxide 31 mmol/L (21-32) 07/04/17 06:35 Anion Gap 7 (8-16) L 07/04/17 06:35 BUN 21 mg/dL (7-18) H 07/04/17 06:35 Creatinine 1.2 mg/dL (0.55-1.02) H 07/04/17 06:35 Creat Clearance w eGFR 47.55 (>60) 07/04/17 06:35 POC Glucometer 94 UNITS (80-120) 07/05/17 05:58 Random Glucose 207 mg/dL (74-106) H 07/04/17 06:35 Hemoglobin A1c % 10.4 % (4.8-6.0) H 06/24/17 06:30 Lactic Acid 0.7 mmol/L (0.0-2.0) 06/24/17 07:00 Uric Acid 5.6 mg/dL (2.6-7.2) 07/04/17 06:35 Calcium 8.4 mg/dL (8.5-10.1) L 07/04/17 06:35 Phosphorus 3.8 mg/dL (2.5-4.9) 07/04/17 06:35 Magnesium 1.6 mg/dL (1.8-2.4) L 07/04/17 06:35 Total Bilirubin 0.3 mg/dL (0.2-1.0) D 07/04/17 06:35 AST 10 U/L (15-37) L 07/04/17 06:35 ALT 13 U/L (12-78) 07/04/17 06:35 Alkaline Phosphatase 71 U/L (45-117) 07/04/17 06:35 Troponin I < 0.02 ng/ml (0.00-0.05) 06/23/17 20:31 C-Reactive Protein 12.6 MG/DL (0.00-0.3) H 06/29/17 06:20 Total Protein 6.4 g/dl (6.4-8.2) 07/04/17 06:35 Albumin 1.9 g/dl (3.4-5.0) L 07/04/17 06:35 Lipase 83 U/L (73-393) 06/24/17 06:30 Serum , Qual Negative 07/01/17 10:02 Problem List - Problems (1) PVD (peripheral vascular disease) Code(s): I73.9 - PERIPHERAL VASCULAR DISEASE, UNSPECIFIED (2) Type 2 diabetes mellitus Code(s): E11.9 - TYPE 2 DIABETES MELLITUS WITHOUT COMPLICATIONS Qualifiers: Diabetes mellitus assisted insulin use: without assisted use Diabetes mellitus complication status: with circulatory complication Diabetes mellitus complication detail: with peripheral angiopathy with gangrene Qualified Code(s ): E11.52 - Type 2 diabetes mellitus with diabetic peripheral angiopathy with gangrene
--- NOTE | 2017-07-05 11:57 | PN ---
Physical Exam: SUBJECTIVE: Patient seen and examined at bedside. Patient conitnes to complain of pain, states that the oxycodone she gets makes her sleepy an dizzy OBJECTIVE: Vital Signs Period Temp Pulse Resp BP Sys/Rahman Pulse Ox Last 24 Hr 98 F-100.6 F 84-90 20-20 114-133/58-69 94 GENERAL: The patient is awake, alert, and fully oriented, in no acute distress. HEAD: Normal with no signs of trauma. NECK: Trachea midline, full range of motion, supple. LUNGS: Breath sounds equal, clear to auscultation bilaterally, no wheezes, no crackles, no accessory muscle use. HEART: Regular rate and rhythm, S1, S2 heard. Systolic ejection murmur appreciated at the right sternal border. ABDOMEN: Soft, nontender, nondistended, normoactive bowel sounds, no guarding, no rebound. EXTREMITIES: 2+ pulses, warm, well-perfused, no edema. NEUROLOGICAL: Cranial nerves II through X grossly intact. Normal speech, gait not observed. SKIN: Warm, dry, normal turgor, no rashes or lesions noted. Heels wrapped. Dressing clean and dry. Laboratory Results - last 24 hr 07/04/17 07/04/17 07/04/17 12:37 17:15 17:30 POC Glucometer 177 148 Vancomycin Pre-Dose 21.992 H* 07/05/17 07/05/17 00:11 05:58 POC Glucometer 113 94 Vancomycin Pre-Dose Active Medications Generic Name Dose Route Start Last Admin Trade Name Freq PRN Reason Stop Dose Admin Acetaminophen 650 mg 07/04/17 08:54 Tylenol - PO Q6H PRN PAIN 1-5 Amlodipine Besylate 10 mg 07/02/17 10:00 07/05/17 10:04 Norvasc - PO 10 mg DAILY [facility] Administration Aspirin 81 mg 07/02/17 10:00 07/05/17 10:04 Ecotrin - PO 81 mg DAILY [facility] Administration Atorvastatin Calcium 80 mg 07/01/17 22:00 07/05/17 00:13 Lipitor - PO 80 mg HS [facility] Administration Carvedilol 12.5 mg 07/01/17 22:00 07/05/17 10:04 Coreg - PO 12.5 mg BID [facility] Administration Clopidogrel Bisulfate 75 mg 07/02/17 10:00 07/05/17 10:04 Plavix - PO 75 mg DAILY [facility] Administration Collagenase 1 applic 07/02/17 10:00 07/05/17 10:04 Santyl - TP 1 applic DAILY [facility] Administration Docusate Sodium 100 mg 07/01/17 11:57 Colace - PO TID PRN CONSTIPATION Gabapentin 300 mg 07/01/17 14:00 07/05/17 06:22 Neurontin - PO 300 mg TID [facility] Administration Glipizide 5 mg 07/04/17 16:30 07/05/17 06:22 Glucotrol - PO 5 mg BID@0700,1630 [facility] Administration Heparin Sodium (Porcine) 5,000 unit 07/01/17 14:00 07/05/17 06:22 Heparin - SQ 5,000 unit TID [facility] Administration Ertapenem 1 gm/ Sodium 50 mls @ 50 mls/hr 07/02/17 10:00 07/05/17 10:04 Chloride IVPB 50 mls/hr DAILY [facility] Administration Protocol Vancomycin HCl 1 gm in 200 mls @ 133.333 mls/hr 07/02/17 18:00 07/04/17 21:27 Vancomycin 1 Gm Premix - IVPB Not Given BID@0600,1800 [facility] Protocol Insulin Aspart 1 vial 07/01/17 16:30 07/05/17 06:20 Novolog Vial Sliding Scale - SQ Not Given ACHS [facility] Protocol Lisinopril 20 mg 07/02/17 10:00 07/05/17 10:04 Prinivil PO 20 mg DAILY [facility] Administration Ondansetron HCl 4 mg 07/01/17 11:57 07/02/17 18:55 Zofran Injection IVPUSH 4 mg Q6H PRN Administration NAUSEA AND/OR VOMITING Oxycodone HCl 5 mg 07/01/17 11:57 07/05/17 00:14 Roxicodone - PO 5 mg Q4H PRN Administration LEVEL 6-10 Pantoprazole Sodium 40 mg 07/02/17 10:00 07/05/17 10:04 Protonix - PO 40 mg DAILY [facility] Administration Sitagliptin Phosphate 25 mg 07/04/17 07:00 07/04/17 08:46 Januvia - PO 25 mg DAILY@0700 [facility] Administration ASSESSMENT/PLAN: 51yo F with PMHx of uncontrolled DM2 admitted for the treatment of sepsis 2/2 infected DM foot ulcer. #Sepsis 2/2 infected diabetic foot ulcer -ID consult -ertapenem 1gm daily (day 9) (10 days total abx) -vancomycin 1250 daily (day 3) -Per ID, Patient will need 4-5 weeks of ABX -pain control: PO oxy 5mg. tylenol 650 added. -POD 4: OR debridement w/ Dr. Byrnes today #Peripheral Vascular Dz -asa, plavix (holding in preparation for surgery, last administered 04/30) #Nausea/Vomiting likely 2/2 DM gastroparesis -Patient refusing GI workup. -Zofran 4mg IV prn nausea #TITA likely 2/2 dehydration 2/2 sepsis/vomiting -avoid nephrotoxic drugs -holding home ACEI #HTN -c/w home norvasc 10mg daily -c/w home coreg 12.5mg daily #DM -Endocrine consulted -c/w Januvia 25mg daily and Glucotrol 5mg BID -BGM ACHS -ISS ACHS -c/w home gabapentin 300 TID #FEN -no fluids indicated -monitor lytes. replete PRN -diabetic diet #Prophylaxsis -Pt on plavix # Dispo -Admit to inpatient med/surg -Patient will need PICC and penitentiary ABX, preferably at a SNF. -Patient's insurance lapses 07/05. Informed patient that she must renew coverage on her own or have a family member do it. -Patient for transfer to [facility] for IV ABX and continued assistance with insurance issues Visit type - Emergency Visit Emergency Visit: Yes ED Registration Date: 06/23/17 Care time: The patient presented to the Emergency Department on the above date and was hospitalized for further evaluation of their emergent condition. - New Patient This patient is new to me today: No - Critical Care Critical Care patient: No - Discharge Referral Referred to [facility] No
[2017-07-05] MEDS: sitaGLIPtin PHOSPHATE 25 MG TABLET (FP) PO SCH (13:36)
--- NOTE | 2017-07-05 14:25 | PN ---
Progress Note, Physician History of Present Illness: patient stable post debridement - Current Medication List Current Medications: Active Medications Acetaminophen (Tylenol -) 650 mg PO Q6H PRN PRN Reason: PAIN 1-5 Amlodipine Besylate (Norvasc -) 10 mg PO DAILY [facility] Last Admin: 07/05/17 10:04 Dose: 10 mg Aspirin (Ecotrin -) 81 mg PO DAILY [facility] Last Admin: 07/05/17 10:04 Dose: 81 mg Atorvastatin Calcium (Lipitor -) 80 mg PO HS [facility] Last Admin: 07/05/17 00:13 Dose: 80 mg Carvedilol (Coreg -) 12.5 mg PO BID [facility] Last Admin: 07/05/17 10:04 Dose: 12.5 mg Clopidogrel Bisulfate (Plavix -) 75 mg PO DAILY [facility] Last Admin: 07/05/17 10:04 Dose: 75 mg Collagenase (Santyl -) 1 applic TP DAILY [facility] Last Admin: 07/05/17 10:04 Dose: 1 applic Docusate Sodium (Colace -) 100 mg PO TID PRN PRN Reason: CONSTIPATION Gabapentin (Neurontin -) 300 mg PO TID [facility] Last Admin: 07/05/17 13:37 Dose: 300 mg Glipizide (Glucotrol -) 5 mg PO BID@0700,1630 [facility] Last Admin: 07/05/17 06:22 Dose: 5 mg Heparin Sodium (Porcine) (Heparin -) 5,000 unit SQ TID [facility] Last Admin: 07/05/17 13:37 Dose: 5,000 unit Ertapenem 1 gm/ Sodium (Chloride) 50 mls @ 50 mls/hr IVPB DAILY [facility] PRN Reason: Protocol Last Admin: 07/05/17 10:04 Dose: 50 mls/hr Vancomycin HCl (Vancomycin 1 Gm Premix -) 1 gm in 200 mls @ 133.333 mls/hr IVPB BID@0600,1800 [facility] PRN Reason: Protocol Last Admin: 07/04/17 21:27 Dose: Not Given Insulin Aspart (Novolog Vial Sliding Scale -) 1 vial SQ ACHS [facility] PRN Reason: Protocol Last Admin: 07/05/17 13:19 Dose: Not Given Lisinopril (Prinivil) 20 mg PO DAILY [facility] Last Admin: 07/05/17 10:04 Dose: 20 mg Ondansetron HCl (Zofran Injection) 4 mg IVPUSH Q6H PRN PRN Reason: NAUSEA AND/OR VOMITING Last Admin: 07/02/17 18:55 Dose: 4 mg Oxycodone HCl (Roxicodone -) 5 mg PO Q4H PRN PRN Reason: LEVEL 6-10 Last Admin: 07/05/17 00:14 Dose: 5 mg Pantoprazole Sodium (Protonix -) 40 mg PO DAILY [facility] Last Admin: 07/05/17 10:04 Dose: 40 mg Sitagliptin Phosphate (Januvia -) 25 mg PO DAILY@0700 [facility] Last Admin: 07/05/17 13:36 Dose: 25 mg - Objective Vital Signs: Vital Signs Temperature 98 F 07/05/17 06:00 Pulse Rate 84 07/05/17 06:00 Respiratory Rate 20 07/05/17 06:00 Blood Pressure 114/58 07/05/17 06:00 O2 Sat by Pulse Oximetry (%) 94 L 07/04/17 21:00 Constitutional: Yes: No Distress, Calm Cardiovascular: Yes: Regular Rate and Rhythm Respiratory: Yes: Regular, CTA Bilaterally Musculoskeletal: Yes: WNL Extremities: Yes: Other Neurological: Yes: Alert, Oriented Psychiatric: Yes: Alert, Oriented Labs: CBC, BMP 07/04/17 06:35 07/04/17 06:35 INR, PTT INR 1.09 (0.82-1.09) 06/30/17 07:00 Assessment/Plan Problem List - Problems (1) Gastroparesis Code(s): K31.84 - GASTROPARESIS (2) Diabetic foot ulcer Code(s): E11.621 - TYPE 2 DIABETES MELLITUS WITH FOOT ULCER; L97.509 - NON- PRESSURE CHRONIC ULCER OTH PRT UNSP FOOT W UNSP SEVERITY (3) Diabetic gastroparesis associated with type 2 diabetes mellitus Code(s): E11.43 - TYPE 2 DIABETES W DIABETIC AUTONOMIC (POLY)NEUROPATHY; K31.84 - GASTROPARESIS (4) Diabetic neuropathy with neurologic complication Code(s): E11.40 - TYPE 2 DIABETES MELLITUS WITH DIABETIC NEUROPATHY, UNSP; E11.49 - TYPE 2 DIABETES W OTH DIABETIC NEUROLOGICAL COMPLICATION (5) Nausea & vomiting Code(s): R11.2 - NAUSEA WITH VOMITING, UNSPECIFIED mrsa osteo plan continue current abx patient dayami need it for 4-5 weeks follow vanco levels rest as per the team
[2017-07-05] MEDS ORDERED: PICC LINE 8 ML FLUSH PROTOCOL IVPUSH PRN (15:07)
[2017-07-05] MEDS: VANCOMYCIN 1,250 MG in DEXTROSE 5%-WATER - 250 ML IVPB SCH (16:12)
[2017-07-06] MEDS ORDERED: PANTOPRAZOLE 40 MG TABLET (FP) PO SCH (06:00)
[2017-07-06] MEDS: INSULIN SLIDING SCALE (NOVOLOG) 1 VIAL SQ SCH ×2 (06:26→11:19)
[2017-07-06] MEDS: HEPARIN NA (PORCINE) 5,000 UNITS/ML 1ML VIAL SQ SCH ×2 (06:50→14:03)
[2017-07-06] MEDS: glipiZIDE 5 MG TABLET (FP) PO SCH (06:51)
[2017-07-06] MEDS: GABAPENTIN 300 MG CAPSULE (FP) PO SCH ×2 (06:51→14:02)
[2017-07-06] MEDS: sitaGLIPtin PHOSPHATE 25 MG TABLET (FP) PO SCH (07:57)
--- NOTE | 2017-07-06 08:50 | PN ---
Progress Note (short form) - Note Progress Note: Going for PIC line Still with feet pain Blood sugar stable Vital Signs Period Temp Pulse Resp BP Sys/Rahman Pulse Ox Last 24 Hr 97.6 F-99.4 F 78-92 20-20 125-133/60-60 94-94 PE: AOx3 Neck: supple, No JVD HEENT: PERRL, EOMI Lungs: CTA CVS: S1S2 Abd: Benign Ext: B/L leg dressing Neuro: No focal deficit CMP Sodium 137 mmol/L (136-145) 07/04/17 06:35 Potassium 4.5 mmol/L (3.5-5.1) 07/04/17 06:35 Chloride 99 mmol/L (98-107) 07/04/17 06:35 Carbon Dioxide 31 mmol/L (21-32) 07/04/17 06:35 Anion Gap 7 (8-16) L 07/04/17 06:35 BUN 21 mg/dL (7-18) H 07/04/17 06:35 Creatinine 1.2 mg/dL (0.55-1.02) H 07/04/17 06:35 Creat Clearance w eGFR 47.55 (>60) 07/04/17 06:35 POC Glucometer 102 UNITS (80-120) 07/06/17 06:25 Random Glucose 207 mg/dL (74-106) H 07/04/17 06:35 Hemoglobin A1c % 10.4 % (4.8-6.0) H 06/24/17 06:30 Lactic Acid 0.7 mmol/L (0.0-2.0) 06/24/17 07:00 Uric Acid 5.6 mg/dL (2.6-7.2) 07/04/17 06:35 Calcium 8.4 mg/dL (8.5-10.1) L 07/04/17 06:35 Phosphorus 3.8 mg/dL (2.5-4.9) 07/04/17 06:35 Magnesium 1.6 mg/dL (1.8-2.4) L 07/04/17 06:35 Total Bilirubin 0.3 mg/dL (0.2-1.0) D 07/04/17 06:35 AST 10 U/L (15-37) L 07/04/17 06:35 ALT 13 U/L (12-78) 07/04/17 06:35 Alkaline Phosphatase 71 U/L (45-117) 07/04/17 06:35 Troponin I < 0.02 ng/ml (0.00-0.05) 06/23/17 20:31 C-Reactive Protein 12.6 MG/DL (0.00-0.3) H 06/29/17 06:20 Total Protein 6.4 g/dl (6.4-8.2) 07/04/17 06:35 Albumin 1.9 g/dl (3.4-5.0) L 07/04/17 06:35 Lipase 83 U/L (73-393) 06/24/17 06:30 Serum , Qual Negative 07/01/17 10:02 Current Medications Generic Name Dose Route Start Last Admin Trade Name Freq PRN Reason Stop Dose Admin Acetaminophen 650 mg 07/04/17 08:54 07/05/17 17:37 Tylenol - PO 650 mg Q6H PRN Administration PAIN 1-5 Amlodipine Besylate 10 mg 07/02/17 10:00 07/05/17 10:04 Norvasc - PO 10 mg DAILY JESSICA Administration Aspirin 81 mg 07/02/17 10:00 07/05/17 10:04 Ecotrin - PO 81 mg DAILY JESSICA Administration Atorvastatin Calcium 80 mg 07/01/17 22:00 07/05/17 22:47 Lipitor - PO 80 mg HS JESSICA Administration Carvedilol 12.5 mg 07/01/17 22:00 07/05/17 22:47 Coreg - PO 12.5 mg BID JESSICA Administration Clopidogrel Bisulfate 75 mg 07/02/17 10:00 07/05/17 10:04 Plavix - PO 75 mg DAILY JESSICA Administration Collagenase 1 applic 07/02/17 10:00 07/05/17 10:04 Santyl - TP 1 applic DAILY JESSICA Administration Docusate Sodium 100 mg 07/01/17 11:57 Colace - PO TID PRN CONSTIPATION Gabapentin 300 mg 07/01/17 14:00 07/06/17 06:51 Neurontin - PO 300 mg TID JESSICA Administration Glipizide 5 mg 07/04/17 16:30 07/06/17 06:51 Glucotrol - PO 5 mg BID@0700,1630 JESSICA Administration Heparin Sodium (Porcine) 5,000 unit 07/01/17 14:00 07/06/17 06:50 Heparin - SQ 5,000 unit TID JESSICA Administration IV Flush 8 ml 07/05/17 15:07 Picc Line Flush IVPUSH PRN PRN Protocol Ertapenem 1 gm/ Sodium 50 mls @ 50 mls/hr 07/02/17 10:00 07/05/17 10:04 Chloride IVPB 50 mls/hr DAILY JESSICA Administration Protocol Vancomycin HCl 1,250 mg/ 250 mls @ 166.667 mls/hr 07/05/17 14:30 07/05/17 16: 12 Dextrose IVPB 166.667 mls/hr Q24H JESSICA Administration Protocol Insulin Aspart 1 vial 07/01/17 16:30 07/06/17 06:26 Novolog Vial Sliding Scale - SQ Not Given ACHS JESSICA Protocol Lisinopril 20 mg 07/02/17 10:00 07/05/17 10:04 Prinivil PO 20 mg DAILY JESSICA Administration Ondansetron HCl 4 mg 07/01/17 11:57 07/02/17 18:55 Zofran Injection IVPUSH 4 mg Q6H PRN Administration NAUSEA AND/OR VOMITING Oxycodone HCl 5 mg 07/01/17 11:57 07/05/17 22:48 Roxicodone - PO 5 mg Q4H PRN Administration LEVEL 6-10 Pantoprazole Sodium 40 mg 07/06/17 06:00 07/06/17 06:50 Protonix - PO 40 mg 0600 JESSICA Administration Sitagliptin Phosphate 25 mg 07/04/17 07:00 07/06/17 07:57 Januvia - PO 25 mg DAILY@0700 JESSICA Administration AP: T2DM uncontrolled: A1c 10.4, Improving blood sugar B/L heel ulcers Neuropathy ?Gastroparesis HTN Hirsutism: Has it for many years. Doesn't want it addressed during the hopitalization. Glipizide 5 mg BID Januvia 25 mg QD Off Levemir, will monitor blood sugar off Levemir now now Novolog SS coverage Discussed need for diet control at home to maintain optimal blood sugar control F/U in office in 2 weeks Will sign off, recall if necessary Dr Goodman covering for until July 26. Will f/u CMP Sodium 137 mmol/L (136-145) 07/04/17 06:35 Potassium 4.5 mmol/L (3.5-5.1) 07/04/17 06:35 Chloride 99 mmol/L (98-107) 07/04/17 06:35 Carbon Dioxide 31 mmol/L (21-32) 07/04/17 06:35 Anion Gap 7 (8-16) L 07/04/17 06:35 BUN 21 mg/dL (7-18) H 07/04/17 06:35 Creatinine 1.2 mg/dL (0.55-1.02) H 07/04/17 06:35 Creat Clearance w eGFR 47.55 (>60) 07/04/17 06:35 POC Glucometer 94 UNITS (80-120) 07/05/17 05:58 Random Glucose 207 mg/dL (74-106) H 07/04/17 06:35 Hemoglobin A1c % 10.4 % (4.8-6.0) H 06/24/17 06:30 Lactic Acid 0.7 mmol/L (0.0-2.0) 06/24/17 07:00 Uric Acid 5.6 mg/dL (2.6-7.2) 07/04/17 06:35 Calcium 8.4 mg/dL (8.5-10.1) L 07/04/17 06:35 Phosphorus 3.8 mg/dL (2.5-4.9) 07/04/17 06:35 Magnesium 1.6 mg/dL (1.8-2.4) L 07/04/17 06:35 Total Bilirubin 0.3 mg/dL (0.2-1.0) D 07/04/17 06:35 AST 10 U/L (15-37) L 07/04/17 06:35 ALT 13 U/L (12-78) 07/04/17 06:35 Alkaline Phosphatase 71 U/L (45-117) 07/04/17 06:35 Troponin I < 0.02 ng/ml (0.00-0.05) 06/23/17 20:31 C-Reactive Protein 12.6 MG/DL (0.00-0.3) H 06/29/17 06:20 Total Protein 6.4 g/dl (6.4-8.2) 07/04/17 06:35 Albumin 1.9 g/dl (3.4-5.0) L 07/04/17 06:35 Lipase 83 U/L (73-393) 06/24/17 06:30 Serum , Qual Negative 07/01/17 10:02 Problem List - Problems (1) PVD (peripheral vascular disease) Code(s): I73.9 - PERIPHERAL VASCULAR DISEASE, UNSPECIFIED (2) Type 2 diabetes mellitus Code(s): E11.9 - TYPE 2 DIABETES MELLITUS WITHOUT COMPLICATIONS Qualifiers: Diabetes mellitus mcfp insulin use: without dedicated intermodal truck driver use Diabetes mellitus complication status: with circulatory complication Diabetes mellitus complication detail: with peripheral angiopathy with gangrene Qualified Code(s ): E11.52 - Type 2 diabetes mellitus with diabetic peripheral angiopathy with gangrene
[2017-07-06] MEDS ORDERED: PT OWN MED DRAWER 7, Y5N ONE ×2 (10:22→10:48)
[2017-07-06] MEDS: ASPIRIN COATED 81 MG TABLET.EC PO SCH (10:55)
[2017-07-06] MEDS: amLODIPine BESYLATE 10 MG TABLET (FP) PO SCH (10:55)
[2017-07-06] MEDS: ERTAPENEM SODIUM 1 GM in SODIUM CHLORIDE 50 ML IVPB SCH (10:55)
[2017-07-06] MEDS: LISINOPRIL 20 MG TABLET (FP) PO SCH (10:55)
[2017-07-06] MEDS: CARVEDILOL 12.5 MG TABLET (FP) PO SCH (10:55)
[2017-07-06] MEDS: COLLAGENASE CLOSTRIDIUM HIST. 30 GRAMS TUBE TP SCH (10:55)
[2017-07-06] MEDS: oxyCODONE HCL 5 MG TABLET PO PRN (11:19)
--- NOTE | 2017-07-06 11:32 | PN ---
Progress Note, Physician History of Present Illness: stable doing well no complaints - Current Medication List Current Medications: Active Medications Acetaminophen (Tylenol -) 650 mg PO Q6H PRN PRN Reason: PAIN 1-5 Last Admin: 07/05/17 17:37 Dose: 650 mg Amlodipine Besylate (Norvasc -) 10 mg PO DAILY [facility] Last Admin: 07/06/17 10:55 Dose: 10 mg Aspirin (Ecotrin -) 81 mg PO DAILY [facility] Last Admin: 07/06/17 10:55 Dose: 81 mg Atorvastatin Calcium (Lipitor -) 80 mg PO HS [facility] Last Admin: 07/05/17 22:47 Dose: 80 mg Carvedilol (Coreg -) 12.5 mg PO BID [facility] Last Admin: 07/06/17 10:55 Dose: 12.5 mg Clopidogrel Bisulfate (Plavix -) 75 mg PO DAILY [facility] Last Admin: 07/05/17 10:04 Dose: 75 mg Collagenase (Santyl -) 1 applic TP DAILY [facility] Last Admin: 07/06/17 10:55 Dose: Not Given Docusate Sodium (Colace -) 100 mg PO TID PRN PRN Reason: CONSTIPATION Gabapentin (Neurontin -) 300 mg PO TID [facility] Last Admin: 07/06/17 06:51 Dose: 300 mg Glipizide (Glucotrol -) 5 mg PO BID@0700,1630 [facility] Last Admin: 07/06/17 06:51 Dose: 5 mg Heparin Sodium (Porcine) (Heparin -) 5,000 unit SQ TID [facility] Last Admin: 07/06/17 06:50 Dose: 5,000 unit IV Flush (Picc Line Flush) 8 ml IVPUSH PRN PRN PRN Reason: Protocol Ertapenem 1 gm/ Sodium (Chloride) 50 mls @ 50 mls/hr IVPB DAILY [facility] PRN Reason: Protocol Last Admin: 07/06/17 10:55 Dose: 50 mls/hr Vancomycin HCl 1,250 mg/ (Dextrose) 250 mls @ 166.667 mls/hr IVPB Q24H JESSICA PRN Reason: Protocol Last Admin: 07/05/17 16:12 Dose: 166.667 mls/hr Insulin Aspart (Novolog Vial Sliding Scale -) 1 vial SQ ACHS [facility] PRN Reason: Protocol Last Admin: 07/06/17 11:19 Dose: Not Given Lisinopril (Prinivil) 20 mg PO DAILY [facility] Last Admin: 07/06/17 10:55 Dose: 20 mg Ondansetron HCl (Zofran Injection) 4 mg IVPUSH Q6H PRN PRN Reason: NAUSEA AND/OR VOMITING Last Admin: 07/02/17 18:55 Dose: 4 mg Oxycodone HCl (Roxicodone -) 5 mg PO Q4H PRN PRN Reason: LEVEL 6-10 Last Admin: 07/06/17 11:19 Dose: 5 mg Pantoprazole Sodium (Protonix -) 40 mg PO 0600 [facility] Last Admin: 07/06/17 06:50 Dose: 40 mg Sitagliptin Phosphate (Januvia -) 25 mg PO DAILY@0700 [facility] Last Admin: 07/06/17 07:57 Dose: 25 mg - Objective Vital Signs: Vital Signs Temperature 98.9 F 07/06/17 06:24 Pulse Rate 92 H 07/06/17 06:24 Respiratory Rate 20 07/06/17 06:24 Blood Pressure 125/60 07/06/17 06:24 O2 Sat by Pulse Oximetry (%) 94 L 07/05/17 21:00 Constitutional: Yes: No Distress, Calm Cardiovascular: Yes: Regular Rate and Rhythm Respiratory: Yes: Regular, CTA Bilaterally Gastrointestinal: Yes: Normal Bowel Sounds, Soft Musculoskeletal: Yes: WNL Extremities: Yes: Other Wound/Incision: Yes: Dressing Dry and Intact Neurological: Yes: Alert, Oriented Psychiatric: Yes: Alert, Oriented Labs: CBC, BMP 07/04/17 06:35 07/04/17 06:35 INR, PTT INR 1.09 (0.82-1.09) 06/30/17 07:00 Assessment/Plan Problem List - Problems (1) Gastroparesis Code(s): K31.84 - GASTROPARESIS (2) Diabetic foot ulcer Code(s): E11.621 - TYPE 2 DIABETES MELLITUS WITH FOOT ULCER; L97.509 - NON- PRESSURE CHRONIC ULCER OTH PRT UNSP FOOT W UNSP SEVERITY (3) Diabetic gastroparesis associated with type 2 diabetes mellitus Code(s): E11.43 - TYPE 2 DIABETES W DIABETIC AUTONOMIC (POLY)NEUROPATHY; K31.84 - GASTROPARESIS (4) Diabetic neuropathy with neurologic complication Code(s): E11.40 - TYPE 2 DIABETES MELLITUS WITH DIABETIC NEUROPATHY, UNSP; E11.49 - TYPE 2 DIABETES W OTH DIABETIC NEUROLOGICAL COMPLICATION (5) Nausea & vomiting Code(s): R11.2 - NAUSEA WITH VOMITING, UNSPECIFIED mrsa osteo plan abx for 5 weeks follow cbc esr bmp crp weekly vanco trough to be followed wound care rest as per the team
[2017-07-06 13:35] LABS: HEMATOCRIT 22.8 % (32.4-45.2); HEMOGLOBIN 7.7 GM/dL (10.7-15.3); MCH 28.8 pg (25.7-33.7); MCHC 33.7 g/dl (32.0-36.0); MEAN CELL VOLUME 85.3 fl (80-96); MEAN PLT VOLUME 7.3 fl (7.5-11.1); PLATELET COUNT 542 K/MM3 (134-434); RBC 2.67 M/mm3 (3.60-5.2); RDW 14.7 % (11.6-15.6)
[2017-07-06 13:57] LABS: ANION GAP 10 (8-16); BLOOD UREA NITROGEN 15 mg/dL (7-18); CALCIUM 8.6 mg/dL (8.5-10.1); CHLORIDE 101 mmol/L (98-107); CO2 30 mmol/L (21-32); CREATININE 0.9 mg/dL (0.55-1.02); GLUCOSE,RANDOM 91 mg/dL (74-106); POTASSIUM 4.1 mmol/L (3.5-5.1); SODIUM 141 mmol/L (136-145)
[2017-07-06] MEDS: VANCOMYCIN 1,250 MG in DEXTROSE 5%-WATER - 250 ML IVPB SCH (14:03)
[2017-07-06 14:49] VITALS: BP 120/78; PULSE 60; TEMP 98.2
--- NOTE | 2017-07-06 16:34 | PN ---
Teaching Attending Note Name of Resident: Shoaib Chris ATTENDING PHYSICIAN STATEMENT I saw and evaluated the patient. I reviewed the resident's note and discussed the case with the resident. I agree with the resident's findings and plan as documented. SUBJECTIVE: pain in L foot which responds to pain meds no SOB or fever or cough OBJECTIVE: NAD, flat affect Cv : RRR, no MRG Lungs: CTAB Ext: no edema on legs. R heel wond with no discharge and o surounding erythema . . 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 - weekly vanco trough ( goal 15-20), ESR, CRP, and CMP - f/u with wound care - dressing change with santyl - ASA and plavix and lipitor - cont HTN meds - refused insulin for Dm , cont po meds - f/u with GI -labs reviewed today. dispo : dc to rehab.
--- NOTE | 2017-07-06 18:00 | DS ---
Physical Exam: SUBJECTIVE: Patient seen and examined at bedside. No new complaints. for tunneled cath and DC today. OBJECTIVE: Vital Signs Period Temp Pulse Resp BP Sys/Rahman Pulse Ox Last 24 Hr 98.2 F-98.9 F 60-92 18-20 120-137/60-78 94-96 PHYSICAL EXAM GENERAL: The patient is awake, alert, and fully oriented, in no acute distress. HEAD: Normal with no signs of trauma. NECK: Trachea midline, full range of motion, supple. LUNGS: Breath sounds equal, clear to auscultation bilaterally, no wheezes, no crackles, no accessory muscle use. HEART: Regular rate and rhythm, S1, S2 heard. Systolic ejection murmur appreciated at the right sternal border. ABDOMEN: Soft, nontender, nondistended, normoactive bowel sounds, no guarding, no rebound. EXTREMITIES: 2+ pulses, warm, well-perfused, no edema. NEUROLOGICAL: Cranial nerves II through X grossly intact. Normal speech, gait not observed. SKIN: Warm, dry, normal turgor, no rashes or lesions noted. Heel wounds b/l improved s/p debridement. there is still fluctuance in the center of the wound b /l. There is an area of discoloration on the lateral malleolus on the left where the skin is discolored and is tender to palpation. No fluctuance in the area. LABS Laboratory Results - last 24 hr 07/05/17 07/06/17 07/06/17 22:45 06:25 11:17 WBC RBC Hgb Hct MCV MCH MCHC RDW Plt Count MPV Sodium Potassium Chloride Carbon Dioxide Anion Gap BUN Creatinine POC Glucometer 136 102 106 Random Glucose Calcium 07/06/17 07/06/17 13:15 13:15 WBC 15.0 H RBC 2.67 L Hgb 7.7 L Hct 22.8 L MCV 85.3 MCH 28.8 MCHC 33.7 RDW 14.7 Plt Count 542 H MPV 7.3 L Sodium 141 Potassium 4.1 Chloride 101 Carbon Dioxide 30 Anion Gap 10 BUN 15 Creatinine 0.9 POC Glucometer Random Glucose 91 Calcium 8.6 HOSPITAL COURSE: Date of Admission:06/23/17 The patient is a 51yo F with PMHx of uncontrolled DM2, chronic bilateral heel ulcers who was sent from Dr Byrnes's wound clinic for further evaluation. She was undergoing hyperbaric therapy w/ topical treatments prior to discharge. Denies fevers, chills, CP, SOB. Has chronic nausea and vomiting for which she takes no meds. In the ed, she was found to have a leukocytosis and tachycardia. She was also noted to vomit several times in the ed, which she states is a chronic problem. She was admitted for further workup. Vascular surgery was consulted. Infectious disease was consulted. GI was consulted, podiatry was consulted. endocrinology was consulted. The patient was treated with ertapenem, zofran and protonix. an MRI of the lower extremity showed osteomyelitis in the calcaneus. The patient underwent surgical debridement of both wounds on 07/[address] Byrnes. A culture of the wound grew E.Coli and MRSA. Vancomycin was added to the antibiotic regimen. The patient's hospital course was complicated by continued nausea and vomiting suspected to be secondary to diabetic gastroparesis. When offered GI consultation and workup, the patient refused GI workup at this time. The potential risks of refusing such treatment were explained to the patient and she verbalized understanding. The patient was informed that she required insulin therapy to control her diabetes, but she refused insulin treatment, opting for PO medications. The potential risks of refusing such treatment were explained to the patient and she verbalized understanding. The patient improved on the above treatment and was discharged to SNF with prescriptions for Ertapenem 1g daily and vancomycin 1g daily for a total of 5 weeks. Prior to discharge, a tunneled catheter was inserted for the administration of ABX. She was advised to follow up with a PCP, an broaching machine operator, and infectious disease specialist, a machine plate stacker as well as at the wound care center. Called [facility]. Spoke to Jacqueline Iniguez, who is involved with the care of the patient. Specified that The patient needs weekly CBC, BMP, ESR and CRP drawn weekly while on antibiotics. Also specified that the results of these Labs should be faxed to Dr. Raymundo. Date of Discharge: 07/06/17 Minutes to complete discharge: 65 Discharge Summary Reason For Visit: DIABETIC FOOT ULCER/CELLULITIS Condition: Improved - Instructions Diet, Activity, Other Instructions: You were treated for your foot ulcers. You underwent debridement on 07/[address] Byrnes. You will need to continue IV antibiotics to treat the osteomyelitis for an additional 4-5 weeks. You are being transferred to [facility] for rehab and IV antibiotic treatment with a PICC line Follow-up in 1 week of discharge for post-hospital evaluation: 1. Primary care physician, if you do not have one, information for a clinic has been provided 2. Sales Inspector, Dr. Chanel for your diabetes management 3. Wound care, Dr. Byrnes for your ulcers and treatment plan for your wounds 4. Infectious Disease, Dr. Raymundo for antibiotic management 5. Gastroenterology, Dr. Gonzales to evaluate your gastroparesis Contact information has been provided, please call to make appointments. Medications: Antibiotics for 5 week total to end on July 28 and August 06 (started on June 23 for Ertapenem, started July 02 for Vancomycin) 1. Vancomycin IV once daily - you will need to have your Vancomycin level checked weekly goal 15-20 - You will need CBC, ESR, BMP, CRP weekly 2. Ertapenem IV once daily Diabetes medications: Januvia 25 mg 1 tablet daily in the morning Glipizide 5 mg 1 tablet twice daily, once in the morning and once at night Novolog insulin three times daily administered via sliding scale at [facility] Blood pressure: lisinopril 20mg 1 tablet daily norvasc 10mg po daily coreg 12.5mg BID 1 tablet daily Chronic pain: neurontin 300mg 1 tablet three times daily Cholesterol: lipitor 80mg 1 tablet at night Blood thinners for peripheral vascular disease and heart protection: Plavix 75mg 1 tablet daily Aspirin 81mg 1 tablet daily Gastroparesis: Protonix 40 mg daily, 1 tablet daily 30mins prior to your first meal of the day zofran 4mg sl 1 strip every 6hrs as needed colace 100mg 1 tablet three times daily Eat small meals Wound care recommendations: - Keep your wound clean and dry, change your dressings daily. - apply santyl and a gauze with a curlex wrapped around your foot to keep the gauze in place If you develop chest pain, trouble breathing, fevers, discharge from your wound , changes in your foot pulses, discoloration around the wound, or any other new symptoms, please return to the hospital Referrals: Tessy Raymundo MD [Staff Physician] - 2 Weeks Lashawn Saini MD [Staff Physician] - Jake Gonzales MD [Staff Physician] - 1 Month Chato Byrnes MD [Staff Physician] - 1 Week Costa Escobedo MD [Staff Physician] - 3 Weeks Disposition: [facility] - Home Medications Comprehensive Discharge Medication List: Ambulatory Orders Amlodipine Besylate [Norvasc -] 10 mg PO DAILY #30 tablet 03/25/17 Aspirin Coated [Ecotrin -] 81 mg PO DAILY #30 tablet.ec 03/25/17 Atorvastatin Ca [Lipitor] 80 mg PO HS #30 tablet 03/25/17 Carvedilol [Coreg -] 12.5 mg PO BID #60 tablet 03/25/17 Clopidogrel Bisulfate [Plavix -] 75 mg PO DAILY #30 tablet 03/25/17 Docusate Sodium [Colace -] 100 mg PO TID capsule 03/25/17 Lancets [Lancets Ultra Thin] 1 each [facility] ACHS #1 box 03/25/17 Lisinopril [Prinivil] 20 mg PO DAILY #30 tablet 03/25/17 Ondansetron [Zofran Odt -] 4 mg SL Q6H PRN #30 tab.rapdis 03/25/17 Sitagliptin Phosphate [Januvia -] 25 mg PO DAILY@0700 #30 tab 03/25/17 Gabapentin [Neurontin] 300 mg PO TID 04/27/17 Collagenase Clostridium Hist. [Santyl] 1 applic TP DAILY #90 oint...g. 05/20/17 Glipizide 5 mg PO BID 05/20/17 Acetaminophen [Tylenol .Regular Strength -] 650 mg PO Q6H PRN tablet 07/06/17 Ertapenem Sodium [Invanz -] 1 gm IVPB DAILY vial 07/06/17 Heparin - 5,000 unit SQ TID vial 07/06/17 Pantoprazole Sodium [Protonix -] 40 mg PO 0600 tablet.ec 07/06/17 Picc Line Flush [Picc Line Flush -] 8 ml IVPUSH PRN PRN ml 07/06/17 Vancomycin 1,250 mg IVPB Q24H vial 07/06/17 oxyCODONE HCL [Roxicodone -] 5 mg PO Q4H PRN tablet MDD 6 07/06/17 This patient is new to me today: No Emergency Visit: Yes ED Registration Date: 06/23/17 Care time: The patient presented to the Emergency Department on the above date and was hospitalized for further evaluation of their emergent condition. Critical Care patient: No - Discharge Referral Referred to [facility] Med P.C.: No
== END 2017-07-06 16:23 | DRG 854 ==
LOC: JER 18:42 → JERBED 23:14 → J8W 06-24 02:48
PROVIDERS: ADMIT Internal Medicine; ATTEND Internal Medicine
PROC: 0JBQ0ZZ Excision of Right Foot Subcutaneous Tissue and Fascia, Open Approach (ICD-10-PCS; 2017-07-01)
PROC: 0JBR0ZZ Excision of Left Foot Subcutaneous Tissue and Fascia, Open Approach (ICD-10-PCS; principal; 2017-07-01 10:00)
PROC: 02HV33Z Insertion of Infusion Device into Superior Vena Cava, Percutaneous Approach (ICD-10-PCS; 2017-07-06)
DX: A41.9 Sepsis, unspecified organism (principal); L97.429 Non-pressure chronic ulcer of left heel and midfoot with unspecified severity; L97.419 Non-pressure chronic ulcer of right heel and midfoot with unspecified severity; M86.172 Other acute osteomyelitis, left ankle and foot; M86.171 Other acute osteomyelitis, right ankle and foot; N17.9 Acute kidney failure, unspecified; L03.115 Cellulitis of right lower limb; L03.116 Cellulitis of left lower limb; E11.621 Type 2 diabetes mellitus with foot ulcer; E11.65 Type 2 diabetes mellitus with hyperglycemia; E11.69 Type 2 diabetes mellitus with other specified complication; E11.43 Type 2 diabetes mellitus with diabetic autonomic (poly)neuropathy; K31.84 Gastroparesis; E11.40 Type 2 diabetes mellitus with diabetic neuropathy, unspecified; R11.2 Nausea with vomiting, unspecified; D64.9 Anemia, unspecified; E86.0 Dehydration; D72.829 Elevated white blood cell count, unspecified; E11.51 Type 2 diabetes mellitus with diabetic peripheral angiopathy without gangrene
CPT/HCPCS: 36415; 36558; 71046-TC-FY; 73630-TC-LT; 73630-TC-RT-FY; 73718-LT; 73718-TC; 76705-TC; 77001-TC-FY; 80048; 80053; 82962; 83036; 83605; 83690; 83735; 84100; 84484; 84550; 84703; 85025; 85027; 85610; 85651; 85730; 86140; 87040; 87070; 87186; 87205; 88304-TC; 93005; 93010; 93926-TC; 93970-TC; 94760; 97116-GP; 97161-GP; 99283-25; C1751; G0277; G0480; J1644; J7030

== ENCOUNTER 2017-11-17 18:31 | Inpatient (IN) | payer OTHER ==
--- NOTE | 2017-11-17 19:02 | PDOC ---
Attending Attestation - HPI HPI: 11/17/17 20:18 The patient is a 52 year old female with a significant past medical history of DM, PAD, femoral bypass of RLE and amputation of LLE who presents to the ER with foul smell and associated swelling from her right heel wound today. The nurse noticed the foul smell after changing her dressing earlier today. Patient was admitted a few weeks ago and underwent debridement of the right heel at that time. Patient has followed up with Dr. Hare and will have a procedure on the . The patient denies chest pain, shortness of breath, headache, and dizziness. Endorses chills but denies fever, nausea, vomit, diarrhea, and constipation. Denies dysuria, frequency, urgency, and hematuria. Allergies: NKA Past surgical history: Left below knee amputation, R femoral- tibial bypass. Social history: No reported alcohol, drug, or cigarette use. - Physicial Exam PE: 11/17/17 20:19 ADULT PHYSICAL EXAM Constitutional: Awake, alert, oriented. No acute distress. Head: Normocephalic. Atraumatic Eyes: PERRL. EOMI. Conjunctivae are not pale. ENT: Mucous membranes are moist and intact. Posterior pharynx without exudates or erythema. Uvula midline. Neck: Supple. Full ROM. No lymphadenopathy. Cardiovascular: Regular rate. Regular rhythm. S1, S2 regular. Distal pulses are 2+ and symmetric. Pulmonary/Chest: No evidence of respiratory distress. Clear to auscultation bilaterally No wheezing, rales or rhonchi. Abdominal: Soft and non-distended. There is no tenderness. No rebound, guarding or rigidity. No organomegaly. No palpable masses. Good bowel sounds. Back: No CVA tenderness. Musculoskeletal: No edema. No cyanosis. No clubbing. Full range of motion in all extremities. No calf tenderness. Radial/pedal pulses are intact and 2+ bilaterally. (+) Below the knee amputation. Skin: Skin is warm and dry. No petechiae. No purpura. (+) Wound vac at the right medial heel, bogginess around the tissue, more swollen than before with increased pain at the heel. Brisk cap refill. Neurological: Alert and oriented to person, place, and time. Cranial nerves II -XII are grossly intact. Normal speech. Strength is grossly symmetric. No sensory deficits. Psychiatric: Good eye contact. Normal interaction, affect and behavior. <Priya Turner - Last Filed: 11/17/17 20:18> - Resident Resident Name: Zeyad Kraft - ED Attending Attestation I have performed the following: I have examined & evaluated the patient, The case was reviewed & discussed with the resident, I agree w/resident's findings & plan, Exceptions are as noted - Medical Decision Making 11/17/17 19:02 I, Dr. Riana Brink, DO, attest that this document has been prepared under my direction and personally reviewed by me in its entirety. I further attest, that it accurately reflects all work, treatment, procedures and medical decision -making performed by me. 11/17/17 20:30 a/p: 52yo female with worsening R foot pain -swelling/mild redness to the area/mild bogginess to the medial aspect of the R heal with the wound vac in place -no f/c -no lymphangitic spread -will obtain xrays to eval for bony changes -will send labs/cultures - hx of MRSA and ecoli -hx of BKA with Dr. Hare in past -will place consults to Dr. Eric -pt will need admission for further eval of diabetic foot wound 11/17/17 22:08 pt with diabetic foot wound, needs iv abx and vasc surg eval case discussed with Chelsey who accepts pt to sym[facility] <Rinaa Brink - Last Filed: 11/17/17 22:15> Discharge Disposition - Discharge Dispostion Last Admission D/C Date: 10/21/17 Decision to Admit order: Yes <Riana Brink - Last Filed: 11/17/17 22:15> - Diagnosis Diabetic foot ulcer Osteomyelitis Qualifiers: Osteomyelitis type: unspecified type Osteomyelitis location: foot Laterality: right Qualified Code(s): M86.9 - Osteomyelitis, unspecified - Discharge Dispostion Condition at time of disposition: Fair Heart Score/ECG Review - ECG Intrepretation Comment:: 11/17/17 20:34 sinus at 86, nl axis, nl interval, no acute st/t wave findings <Riana Brink - Last Filed: 11/17/17 22:15>
--- NOTE | 2017-11-17 19:20 | PDOC ---
History of Present Illness - General Chief Complaint: Wound Stated Complaint: RIGHT LEG INFECTION Time Seen by Provider: 11/17/17 18:56 History Source: Patient Exam Limitations: No Limitations - History of Present Illness Initial Comments: 11/17/17 19:21 52-year-old female with a PMH ofDM 2, PAD, Femoral bypass of RLE and amputation of LLE. Jane came to hospital because of swelling and fouls smell from her wound on right heel. Patient states that she was admitted in hospital few weeks ago and underwent debridement of right heal and was started on vac dressing but yesterday she noticed a swelling on her right foot and fouls smell when RN in [facility] were changing her dressing. She also noticed chills but denies fever. Patient saw Dr. rangel about 10 days ago and was planned for procedure on ( patient reports scraping of bone). Surgical history: Left below knee amputation, R femoral- tibial bypass. Past History - Past Medical History Allergies/Adverse Reactions: Allergies Allergy/AdvReac Type Severity Reaction Status Date / Time Penicillins Allergy Unknown "OUT OF IT" Verified 11/17/17 21:37 Home Medications: Ambulatory Orders Acetaminophen [Tylenol] 650 mg PO Q6H PRN 09/14/17 Glipizide [Glipizide Xl] 5 mg PO BID 09/14/17 Lisinopril [Prinivil] 20 mg PO DAILY 09/14/17 Sitagliptin Phosphate [Januvia] 25 mg PO DAILY 09/14/17 Amlodipine Besylate [Norvasc -] 10 mg PO DAILY #30 tablet 10/05/17 Ascorbic Acid [Vitamin C -] 500 mg PO BID #60 tablet 10/05/17 Atorvastatin Ca [Lipitor] 80 mg PO HS #30 tablet 10/05/17 Carvedilol [Coreg -] 12.5 mg PO BID #30 tablet 10/05/17 Docusate Sodium [Colace -] 100 mg PO BID #30 capsule 10/05/17 Ferrous Sulfate [Feosol] 325 mg PO DAILY #30 tablet 10/05/17 Folic Acid 1 mg PO DAILY #30 tablet 10/05/17 Zinc Sulfate [Orazinc -] 220 mg PO BID #60 capsule 10/05/17 Aspirin Coated [Ecotrin -] 81 mg PO DAILY tablet.ec 10/19/17 Clopidogrel Bisulfate [Plavix -] 75 mg PO DAILY tablet 10/19/17 Enoxaparin [Lovenox -] 30 mg SQ DAILY disp.syrin 10/19/17 Losartan Potassium 1 tab PO DAILY 10/26/17 Alogliptin Benzoate [Nesina] 6.25 mg PO DAILY 11/17/17 Duloxetine HCl 60 mg PO DAILY 11/17/17 Gabapentin 400 mg PO TID 11/17/17 Insulin Glargine,Hum.rec.anlog [Basaglar Kwikpen U-100] 22 unit SQ HS 11/17/17 Insulin Lispro [Admelog] 100 unit SQ ASDIR 11/17/17 Multivitamin [One Daily] 1 each PO DAILY 11/17/17 Oxycodone HCl 10 mg PO Q8H 11/17/17 Pantoprazole Sodium [Protonix -] 40 mg PO DAILY 11/17/17 Anemia: Yes Asthma: No Cancer: No Cardiac Disorders: No CVA: No COPD: No CHF: No Dementia: No Diabetes: Yes (UNCONTROLLED) GI Disorders: No Disorders: No HTN: Yes Hypercholesterolemia: Yes Liver Disease: No Seizures: No Thyroid Disease: No - Immunization History Immunization Up to Date: Yes - Suicide/Smoking/Psychosocial Hx Smoking History: Never smoked Hx Alcohol Use: No Drug/Substance Use Hx: No Substance Use Type: None Hx Substance Use Treatment: No *Physical Exam - Physical Exam General Appearance: Yes: Appropriately Dressed. No: Apparent Distress HEENT: positive: Normal Voice, Symmetrical Neck: positive: Trachea midline, Supple Respiratory/Chest: positive: Lungs Clear, Normal Breath Sounds. negative: Chest Tender, Respiratory Distress, Accessory Muscle Use Cardiovascular: positive: Regular Rhythm, Regular Rate, S1, S2. negative: Edema Gastrointestinal/Abdominal: positive: Flat, Soft. negative: Tender, Distended, Guarding, Rebound, Tenderness Musculoskeletal: negative: CVA Tenderness Extremity: positive: Other (right foot sollen, warm to touch no erythema, vac dressing in situ, Righ leg has healing surgical incesion with some patches of scab no discharge seen, Leg warm to touch. ) ED Treatment Course - LABORATORY CBC & Chemistry Diagram: 11/17/17 19:26 11/17/17 19:26 - RADIOLOGY Radiology Studies Ordered: Category Date Time Status ANKLE & FOOT-RIGHT* [RAD] Stat Radiology 11/17/17 19:15 Ordered DUPLEX ART. LOWER COMPL US [US] Stat Ultrasound 11/17/17 19:14 Ordered DUPLEX VASCUL US-1 LEG [US] Stat Ultrasound 11/17/17 19:14 Ordered Medical Decision Making - Medical Decision Making 11/17/17 19:35 52-year-old female with a PMH of DM 2, PAD, Femoral bypass of RLE and amputation of LLE. Jane came to hospital because of swelling and fouls smell from her wound on right heel. Patient states that she was admitted in hospital few weeks ago and underwent debridement of right heal and was started on vac dressing but yesterday she noticed a swelling on her right foot and fouls smell when RN in [facility] were changing her dressing. She also noticed chills but denies fever. Patient saw Dr. rangel about 10 days ago and was planned for procedure on ( patient reports scraping of bone). Surgical history: Left below knee amputation, R femoral- tibial bypass. we will get cbc, cmp, esr, crp xray right foot, pt/inr, ekg. we will give her one time dose of meropenem and vanco consult send to dr rangel and ashley. 11/17/17 21:44 labs reviewed esr 120, crp getting better. We will admit patient for vascular surgery evaluation and IV antibiotics. [employer]. *DC/Admit/Observation/Transfer Diagnosis at time of Disposition: Osteomyelitis Qualifiers: Osteomyelitis type: unspecified type Osteomyelitis location: foot Laterality: right Qualified Code(s): M86.9 - Osteomyelitis, unspecified - Discharge Dispostion Decision to Admit order: Yes - Referrals - Patient Instructions - Post Discharge Activity
[2017-11-17] MEDS ORDERED: MEROPENEM 500 MG in DEXTROSE 5%-WATER 100 ML IVPB ONE (19:52)
[2017-11-17] MEDS ORDERED: VANCOMYCIN 1,000 MG in DEXTROSE 5%-WATER - 250 ML IVPB ONE (19:53)
[2017-11-17] MEDS ORDERED: VANCOMYCIN 1 GRAM (PRE-DOCKED) 1,000 MG/250 ML BAG IVPB ONE (20:08)
[2017-11-17 20:10] LABS: HEMATOCRIT 27.9 % (32.4-45.2); HEMOGLOBIN 9.2 GM/dL (10.7-15.3); LYMPH % 21.7 % (8-40); MCH 29.4 pg (25.7-33.7); MCHC 33.1 g/dl (32.0-36.0); MEAN CELL VOLUME 88.8 fl (80-96); MEAN PLT VOLUME 6.9 fl (7.5-11.1); MONO % 8.3 % (3.8-10.2); PLATELET COUNT 481 K/MM3 (134-434); RBC 3.14 M/mm3 (3.60-5.2); RDW 15.8 % (11.6-15.6); WHITE BLOOD COUNT 6.7 K/mm3 (4.0-10.0)
[2017-11-17 20:40] LABS: ALBUMIN 2.8 g/dl (3.4-5.0); ANION GAP 8 MMOL/L (8-16); BLOOD UREA NITROGEN 37 mg/dL (7-18); CALCIUM 9.4 mg/dL (8.5-10.1); CHLORIDE 106 mmol/L (98-107); CO2 26 mmol/L (21-32); GLUCOSE,RANDOM 82 mg/dL (74-106); POTASSIUM 4.7 mmol/L (3.5-5.1); SODIUM 140 mmol/L (136-145)
[2017-11-17 20:43] LABS: INR 1.07 (0.83-1.09); PROTHROMBIN TIME (PATIENT) 12.1 SEC (9.7-13.0)
[2017-11-17 20:44] LABS: ALK PHOS 123 U/L (45-117); BILIRUBIN,TOTAL 0.3 mg/dL (0.2-1.0); CREATININE 0.7 mg/dL (0.55-1.3); SGOT/AST 22 U/L (15-37); SGPT/ALT 47 U/L (13-61); TOT PROT 8.3 g/dl (6.4-8.2)
[2017-11-17 20:46] LABS: ACTIVATED PTT 29.7 SECONDS (25.2-36.5)
[2017-11-17] MEDS: INSULIN SLIDING SCALE (NOVOLOG) 1 VIAL SQ SCH (22:03)
--- NOTE | 2017-11-18 00:01 | HP ---
CHIEF COMPLAINT: foot wound malodorous PCP: Torin HISTORY OF PRESENT ILLNESS: This is a 52 year old male with past medical hstory of HTN, HLD, DM, PAD, chronic right heel wound presented to the ED with increased swelling to her right foot as well as a foul odor when the dressing was changed yesterday. She was supposed to be started on vancomycin and zosyn at the nursing but was sent here instead. Pt is very concerned for loss of her foot. ER course was notable for: (1) WBC 6.7, CRP 1.2 (2) xray foot done, pending official read Recent Travel: pt denies PAST MEDICAL HISTORY: HTN, HLD, DM, PAD, chronic right heel wound PAST SURGICAL HISTORY: 03/23/17 R SFA DCB angioplasty with stent placement, popliteal DCB angioplasty 04/28/17 L SFA, popliteal atherectomy with angioplasty 09/15/17 L foot amputation 09/21/17 L BKA 10/12/17 R fem/tib bypass R heel debridement 10/12/17, 10/17/17 Social History: Smoking: pt denies Alcohol: pt denies Drugs: pt denies Family History: mother with HTN, DM father s/p PA brother s/p PA Allergies Penicillins Allergy (Unknown, Verified 11/17/17 21:37) "OUT OF IT" HOME MEDICATIONS: 3 Medication Instructions Recorded Acetaminophen [Tylenol] 650 mg PO Q6H PRN 09/14/17 Glipizide [Glipizide Xl] 5 mg PO BID 09/14/17 Lisinopril [Prinivil] 20 mg PO DAILY 09/14/17 Sitagliptin Phosphate [Januvia] 25 mg PO DAILY 09/14/17 Amlodipine Besylate [Norvasc -] 10 mg PO DAILY #30 tablet 10/05/17 Ascorbic Acid [Vitamin C -] 500 mg PO BID #60 tablet 10/05/17 Atorvastatin Ca [Lipitor] 80 mg PO HS #30 tablet 10/05/17 Carvedilol [Coreg -] 12.5 mg PO BID #30 tablet 10/05/17 Docusate Sodium [Colace -] 100 mg PO BID #30 capsule 10/05/17 Ferrous Sulfate [Feosol] 325 mg PO DAILY #30 tablet 10/05/17 Folic Acid 1 mg PO DAILY #30 tablet 10/05/17 Zinc Sulfate [Orazinc -] 220 mg PO BID #60 capsule 10/05/17 Aspirin Coated [Ecotrin -] 81 mg PO DAILY tablet.ec 10/19/17 Clopidogrel Bisulfate [Plavix -] 75 mg PO DAILY tablet 10/19/17 Enoxaparin [Lovenox -] 30 mg SQ DAILY disp.syrin 10/19/17 Losartan Potassium 1 tab PO DAILY 10/26/17 Alogliptin Benzoate [Nesina] 6.25 mg PO DAILY 11/17/17 Duloxetine HCl 60 mg PO DAILY 11/17/17 Gabapentin 400 mg PO TID 11/17/17 Insulin Glargine,Hum.rec.anlog 22 unit SQ HS 11/17/17 [Basaglar Kwikpen U-100] Insulin Lispro [Admelog] 100 unit SQ ASDIR 11/17/17 Multivitamin [One Daily] 1 each PO DAILY 11/17/17 Oxycodone HCl 10 mg PO Q8H 11/17/17 Pantoprazole Sodium [Protonix -] 40 mg PO DAILY 11/17/17 REVIEW OF SYSTEMS CONSTITUTIONAL: Absent: fever, chills, diaphoresis, generalized weakness, malaise, loss of appetite, weight change HEENT: Absent: rhinorrhea, nasal congestion, throat pain, throat swelling, difficulty swallowing, mouth swelling, ear pain, eye pain, visual changes CARDIOVASCULAR: Absent: chest pain, syncope, palpitations, irregular heart rate, lightheadedness , peripheral edema RESPIRATORY: Absent: cough, shortness of breath, dyspnea with exertion, orthopnea, wheezing, stridor, hemoptysis GASTROINTESTINAL: Absent: abdominal pain, abdominal distension, nausea, vomiting, diarrhea, constipation, melena, hematochezia GENITOURINARY: Absent: dysuria, frequency, urgency, hesitancy, hematuria, flank pain, genital pain MUSCULOSKELETAL: Absent: myalgia, arthralgia, joint swelling, back pain, neck pain SKIN: Present: swelling to left foot with malodorous wound Absent: rash, itching, pallor HEMATOLOGIC/IMMUNOLOGIC: Absent: easy bleeding, easy bruising, lymphadenopathy, frequent infections ENDOCRINE: Absent: unexplained weight gain, unexplained weight loss, heat intolerance, cold intolerance NEUROLOGIC: Absent: headache, focal weakness or paresthesias, dizziness, unsteady gait, seizure, mental status changes, bladder or bowel incontinence PSYCHIATRIC: Absent: anxiety, depression, suicidal or homicidal ideation, hallucinations. PHYSICAL EXAMINATION Vital Signs - 24 hr 3 11/17/17 11/17/17 11/17/17 19:00 20:33 20:34 Temperature 97.4 F L Pulse Rate 82 Pulse Rate [ 86 Radial] Respiratory 20 22 Rate Blood Pressure 145/81 Blood Pressure 142/69 [Left Arm] O2 Sat by Pulse 100 100 99 Oximetry (%) GENERAL: Awake, alert, and fully oriented, in no acute distress. HEAD: Normal with no signs of trauma. EYES: Pupils equal, round and reactive to light, extraocular movements intact, sclera anicteric, conjunctiva clear. No lid lag. EARS, NOSE, THROAT: Ears normal, nares patent, oropharynx clear without exudates. Moist mucous membranes. NECK: Normal range of motion, supple without lymphadenopathy, JVD, or masses. LUNGS: Breath sounds equal, clear to auscultation bilaterally. No wheezes, and no crackles. No accessory muscle use. HEART: Regular rate and rhythm, normal S1 and S2 without murmur, rub or gallop. ABDOMEN: Soft, nontender, not distended, normoactive bowel sounds, no guarding, no rebound, no masses. No hepatomegaly or splenomegaly. MUSCULOSKELETAL: Normal range of motion at all joints. No bony deformities or tenderness. No CVA tenderness. UPPER EXTREMITIES: 2+ pulses, warm, well-perfused. No cyanosis. No clubbing. No peripheral edema. LOWER EXTREMITIES: 2+ pulses, warm, well-perfused. No calf tenderness. No peripheral edema. NEUROLOGICAL: Cranial nerves II-XII intact. Normal speech. PSYCHIATRIC: Cooperative. Good eye contact. Appropriate mood and affect. SKIN: Warm, dry, normal turgor, no rashes or lesions noted, normal capillary refill. Right foot with wound to medial heel. + thick yellow necrotic areas to rim of wound at 12 and 6o'clock. surrounding skin with maceration, boggy Laboratory Results - last 24 hr 3 11/17/17 11/17/17 11/17/17 11/17/17 11/17/17 19:26 19:26 19:26 19:53 21:53 WBC 6.7 RBC 3.14 L Hgb 9.2 L Hct 27.9 L D MCV 88.8 MCH 29.4 MCHC 33.1 RDW 15.8 H Plt Count 481 H D MPV 6.9 L D Absolute Neuts (auto) 4.3 Neutrophils % 64.0 Lymphocytes % 21.7 D Monocytes % 8.3 Eosinophils % 4.0 D Basophils % 2.0 Nucleated RBC % 0 ESR 120 H PT with INR 12.10 INR 1.07 PTT (Actin FS) 29.7 Sodium 140 Potassium 4.7 Chloride 106 Carbon Dioxide 26 Anion Gap 8 BUN 37 H Creatinine 0.7 Creat Clearance w eGFR > 60 POC Glucometer [phone] Random Glucose 82 Calcium 9.4 Total Bilirubin 0.3 AST 22 ALT 47 Alkaline Phosphatase 123 H C-Reactive Protein 1.2 H Total Protein 8.3 H Albumin 2.8 L Blood Type A POSITIVE Antibody Screen Negative ECG normal sinus rhythm vent rate 86, QTC [address]/T changes ASSESSMENT/PLAN: 52yF with PMH HTN, HLD, DM, PAD, chronic right heel wound presented to the ED for swelling of her left foot and malodorous wound. Diabetic foot ulcer in setting of severe PVD - wound vac removed revealing some necrotic tissue - moist saline gauze dressing applied, will order santyl - vascular consult, wound will need debridement - cont meropenem, vanco - ID consult - cont home plavix and ASA - cont cymbalta, louis and oxy for pain HTN/HLD - cont home losartan, norvasc, lipitor and coreg DM - home lantus changed to formulary levemir - BGM AC/HS with novolog sliding scale DVT PPX - lovenox sc FEN - tolerating po - BMP in am - low sodium/diabetic diet dispo: Pt currently requires further inpatient management of her emergent condition. Visit type - Emergency Visit Emergency Visit: Yes ED Registration Date: 11/17/17 Care time: The patient presented to the Emergency Department on the above date and was hospitalized for further evaluation of their emergent condition. - New Patient This patient is new to me today: Yes Date on this admission: 11/18/17 - Critical Care Critical Care patient: No Hospitalist Screening - Colonoscopy Questionnaire Colonoscopy Questionnaire: Colonoscopy Questionnaire - Patient: 50 - 75 years old and never had a screening colonoscopy: Yes History of colon or rectal polyps, or CA: No History of IBD, Crohn's disease or UC: No History of abdominal radiation therapy as a child: No - Relative: 1 with colon or rectal CA, or polyps at age 60 or younger: No Colon or rectal CA diagnosed at age 45 or younger: No Multiple relatives with colon or rectal CA: No - Outcome: Screening Result: Positive Screen
[2017-11-18] MEDS ORDERED: oxyCODONE HCL 5 MG TABLET PO ONE (00:05)
[2017-11-18] MEDS ORDERED: ACETAMINOPHEN 325 MG TABLET (FP) PO PRN (01:08)
[2017-11-18] MEDS ORDERED: MEROPENEM 1 GM in DEXTROSE 5%-WATER 100 ML IVPB ONE (06:00)
[2017-11-18] MEDS ORDERED: INSULIN (NOVOLOG) ASPART 100 UNITS/ML 10ML VIAL ONE ×6 (06:08→18:18)
[2017-11-18] MEDS: oxyCODONE HCL 5 MG TABLET PO PRN ×2 (06:12→14:34)
[2017-11-18] MEDS: GABAPENTIN 400 MG CAPSULE (FP) PO SCH ×3 (06:13→21:45)
[2017-11-18] MEDS: INSULIN SLIDING SCALE (NOVOLOG) 1 VIAL SQ SCH ×5 (06:13→21:51)
[2017-11-18 07:16] LABS: BASO % 1.7 % (0-2.0); EOS % 3.6 % (0-4.5); HEMATOCRIT 23.1 % (32.4-45.2); HEMOGLOBIN 7.7 GM/dL (10.7-15.3); LYMPH % 16.3 % (8-40); MCH 29.7 pg (25.7-33.7); MCHC 33.6 g/dl (32.0-36.0); MEAN CELL VOLUME 88.4 fl (80-96); MEAN PLT VOLUME 7.1 fl (7.5-11.1); NEUT % 70.4 % (42.8-82.8); PLATELET COUNT 421 K/MM3 (134-434); RBC 2.61 M/mm3 (3.60-5.2); RDW 15.6 % (11.6-15.6); WHITE BLOOD COUNT 9.4 K/mm3 (4.0-10.0)
[2017-11-18 07:47] LABS: ANION GAP 7 MMOL/L (8-16); BLOOD UREA NITROGEN 38 mg/dL (7-18); CHLORIDE 105 mmol/L (98-107); CO2 28 mmol/L (21-32); CREATININE 0.8 mg/dL (0.55-1.3); GLUCOSE,RANDOM 184 mg/dL (74-106); MAGNESIUM 1.8 mg/dL (1.8-2.4); POTASSIUM 4.7 mmol/L (3.5-5.1); SODIUM 140 mmol/L (136-145)
[2017-11-18] MEDS ORDERED: INSULIN (LEVEMIR) 100 UNITS/ML UNITS SQ ONE (08:29)
--- NOTE | 2017-11-18 09:16 | EKG ---
Test Reason : Blood Pressure : / mmHG Vent. Rate : 086 BPM Atrial Rate : 086 BPM P-R Int : 148 ms QRS Dur : 096 ms QT Int : 364 ms P-R-T Axes : 050 054 067 degrees QTc Int : 435 ms NORMAL SINUS RHYTHM EARLY REPOLARIZATION WHEN COMPARED WITH ECG OF 14-SEP-2017 20:43, NO SIGNIFICANT CHANGE WAS FOUND Confirmed by JASON GEORGES MD ([id number]) on 11/18/2017 9:15:34 AM Referred By: Confirmed By:JASON GEORGES MD
[2017-11-18] MEDS ORDERED: ONDANSETRON 4 MG/2 ML VIAL IVPUSH ONE (10:00)
--- NOTE | 2017-11-18 10:11 | PN ---
Progress Note (short form) - Note Progress Note: surgery 52 yo female well known by our service admitted for IV ABX and worsening wound over right heel. Patient is recently s/p Right femorotibial bypass with in situ saphenous vein and Debridement of heel wound on 10/12/17. Patient had been following with Dr Hare in the wound care clinic since then and recently had the right heel debrided in the office on 10/26/17 with wound vac placement. The rehab facility had been managing the vac but noticed a foul smell coming from the wound 2 days ago. Her sister spoke to Dr Hare who recommended she come the the hospital for treatment. She denies any fever, chills, c/p, sob , nausea or vomiting. She has pain around the wound and pain radiating into her right leg at times. Vital Signs Temp 97.5 F L 11/18/17 09:58 Pulse 96 H 11/18/17 09:58 Resp 20 11/18/17 09:58 BP 161/81 11/18/17 09:58 Pulse Ox 99 11/18/17 02:20 Intake & Output 11/17/17 11/17/17 11/18/17 11:59 23:59 11:59 Intake Total 100 Balance 100 Weight 137 lb 126 lb 6 oz Intake: IVPB 100 Other: Voiding Method Diaper Bedpan # Unmeasured Voids Void 1 Height 5 ft 5 in 5 ft 5 in Body Mass Index (BMI) 22.8 21.0 Weight Measurement Method Patient Lift Scale Weight Measurement Method Est/Stated by Patient CBC, BMP 11/18/17 06:00 11/18/17 06:00 PE: A&OX3, NAD, Flat affect Right LE incisions well healed with some scabbing over distal incisions medial and lateral, surrounding tissue intact with no erythema, edema or signs of infection. Bypass with palpable pulse over anterior distal tibia. right foot warm to the touch, with sensation intact throughout, right medial heel with 5x5 full thickness wound, exposed bone, well defined boarders with fibrinous tissue seen at edges, no foul smell. Left LE with well healed BKA, full ROM a knee. <Ladan Laureano - Last Filed: 11/18/17 10:14> - Note Progress Note: History reviewed and patient examined. bypass patent. Plan OR debridement, continue VAC. Plan Integra graft when wound granulating. <Carlos Hare - Last Filed: 11/19/17 11:02> Problem List - Problems (1) Open wound of heel Assessment/Plan: 52 yo with chronic right heel wound with exposed bone and evidence of good blood supply 1) Iv ABX per ID 2) wound vac to be applied today (M,W,F) 3) off load area 4) plan for right heel debridement in OR on Tuesday11/21/17 Evaluation and plan discussed with Dr Hare and surgical PA team. Code(s): S91.309A - UNSPECIFIED OPEN WOUND, UNSPECIFIED FOOT, INITIAL ENCOUNTER <Ladan Laureano - Last Filed: 11/18/17 10:14>
[2017-11-18] MEDS: LOSARTAN POTASSIUM 50 MG TABLET (FP) PO SCH (11:26)
[2017-11-18] MEDS: ZINC SULFATE 220 MG CAPSULE (FP) PO SCH ×2 (11:26→21:45)
[2017-11-18] MEDS: PANTOPRAZOLE 40 MG TABLET (FP) PO SCH (11:26)
[2017-11-18] MEDS: DULoxetine HCL 30 MG CAPSULE.DR (FP) PO SCH (11:26)
[2017-11-18] MEDS: MULTIVITAMINS (DAILY MVI) TABLET (FP) PO SCH (11:27)
[2017-11-18] MEDS: CLOPIDOGREL BISULFATE 75 MG TABLET (FP) PO SCH (11:27)
[2017-11-18] MEDS: LISINOPRIL 20 MG TABLET (FP) PO SCH (11:27)
[2017-11-18] MEDS: amLODIPine BESYLATE 10 MG TABLET (FP) PO SCH (11:27)
[2017-11-18] MEDS: ASPIRIN COATED 81 MG TABLET.EC PO SCH (11:27)
[2017-11-18] MEDS: ASCORBIC ACID 500 MG TABLET (FP) PO SCH ×2 (11:27→21:45)
[2017-11-18] MEDS: BACITRACIN 15 GM TUBE TOPICAL OINTMENT TP SCH (11:28)
[2017-11-18] MEDS: CARVEDILOL 12.5 MG TABLET (FP) PO SCH ×2 (11:28→21:45)
[2017-11-18] MEDS: FOLIC ACID 1 MG TABLET (FP) PO SCH (11:28)
[2017-11-18] MEDS: DOCUSATE SODIUM 100 MG CAPSULE (FP) PO SCH ×2 (11:28→21:45)
[2017-11-18] MEDS: ENOXAPARIN NA (PORCINE) 30 MG/0.3 ML DISP.SYRIN SQ SCH (11:29)
[2017-11-18] MEDS: FERROUS SO4 325 MG TABLET (FP) PO SCH (11:29)
[2017-11-18] MEDS ORDERED: PT OWN MED DRAWER 7, Y5N ONE ×3 (12:09→18:18)
--- NOTE | 2017-11-18 12:22 | PN ---
Progress Note, Physician History of Present Illness: pt seen / examined chart reviewed comfortable afebrile - Current Medication List Current Medications: Active Medications Acetaminophen (Tylenol -) 650 mg PO Q6H PRN PRN Reason: PAIN LEVEL 1-5 Amlodipine Besylate (Norvasc -) 10 mg PO DAILY [facility] Last Admin: 11/18/17 11:27 Dose: 10 mg Ascorbic Acid (Vitamin C -) 500 mg PO BID [facility] Last Admin: 11/18/17 11:27 Dose: 500 mg Aspirin (Ecotrin -) 81 mg PO DAILY [facility] Last Admin: 11/18/17 11:27 Dose: 81 mg Atorvastatin Calcium (Lipitor -) 80 mg PO [facility] Bacitracin (Bacitracin -) 1 applic TP DAILY [facility] Last Admin: 11/18/17 11:28 Dose: 1 applic Carvedilol (Coreg -) 12.5 mg PO BID [facility] Last Admin: 11/18/17 11:28 Dose: 12.5 mg Clopidogrel Bisulfate (Plavix -) 75 mg PO DAILY [facility] Last Admin: 11/18/17 11:27 Dose: 75 mg Docusate Sodium (Colace -) 100 mg PO BID [facility] Last Admin: 11/18/17 11:28 Dose: Not Given Duloxetine HCl (Cymbalta -) 60 mg PO DAILY [facility] Last Admin: 11/18/17 11:26 Dose: 60 mg Enoxaparin Sodium (Lovenox -) 30 mg SQ DAILY [facility] Last Admin: 11/18/17 11:29 Dose: 30 mg Ferrous Sulfate (Feosol -) 325 mg PO DAILY [facility] Last Admin: 11/18/17 11:29 Dose: 325 mg Folic Acid (Folic Acid -) 1 mg PO DAILY [facility] Last Admin: 11/18/17 11:28 Dose: 1 mg Gabapentin (Neurontin -) 400 mg PO TID [facility] Last Admin: 11/18/17 06:13 Dose: 400 mg Insulin Aspart (Novolog Vial Sliding Scale -) 1 vial SQ [facility]; Protocol Last Admin: 11/18/17 12:05 Dose: 2 units Insulin Detemir (Levemir Vial) 22 units SQ [facility] Lisinopril (Prinivil) 20 mg PO DAILY [facility] Last Admin: 11/18/17 11:27 Dose: 20 mg Losartan Potassium (Cozaar -) 50 mg PO DAILY [facility] Last Admin: 11/18/17 11:26 Dose: 50 mg Multivitamins/Minerals/Vitamin C (Tab-A-Vit -) 1 tab PO DAILY [facility] Last Admin: 11/18/17 11:27 Dose: 1 tab Oxycodone HCl (Roxicodone -) 10 mg PO Q8H PRN PRN Reason: PAIN LEVEL 6-10 Last Admin: 11/18/17 06:12 Dose: 10 mg Pantoprazole Sodium (Protonix -) 40 mg PO DAILY [facility] Last Admin: 11/18/17 11:26 Dose: 40 mg Zinc Sulfate (Orazinc -) 220 mg PO BID [facility] Last Admin: 11/18/17 11:26 Dose: 220 mg - Objective Vital Signs: Vital Signs Temperature 97.5 F L 11/18/17 09:58 Pulse Rate 96 H 11/18/17 11:22 Respiratory Rate 20 11/18/17 11:22 Blood Pressure 143/75 11/18/17 11:22 O2 Sat by Pulse Oximetry (%) 99 11/18/17 02:20 Constitutional: Yes: No Distress, Calm Eyes: Yes: Conjunctiva Clear Neck: Yes: Supple Cardiovascular: Yes: Regular Rate and Rhythm Respiratory: Yes: Diminished Gastrointestinal: Yes: Soft Edema: No Wound/Incision: Yes: Other (Right heel chronic wound-) Psychiatric: Yes: Alert Labs: CBC, BMP 11/18/17 06:00 11/18/17 06:00 INR, PTT INR 1.07 (0.83-1.09) 11/17/17 19:53 Problem List - Problems (1) Diabetic foot ulcer Code(s): E11.621 - TYPE 2 DIABETES MELLITUS WITH FOOT ULCER; L97.509 - NON- PRESSURE CHRONIC ULCER OTH PRT UNSP FOOT W UNSP SEVERITY (2) Osteomyelitis Code(s): M86.9 - OSTEOMYELITIS, UNSPECIFIED Qualifiers: Osteomyelitis type: unspecified type Osteomyelitis location: foot Laterality: right Qualified Code(s): M86.9 - Osteomyelitis, unspecified (3) Anemia Code(s): D64.9 - ANEMIA, UNSPECIFIED (4) Diabetic foot ulcer with osteomyelitis Code(s): E11.621 - TYPE 2 DIABETES MELLITUS WITH FOOT ULCER; E11.69 - TYPE 2 DIABETES MELLITUS WITH OTHER SPECIFIED COMPLICATION; L97.509 - NON-PRESSURE CHRONIC ULCER OTH PRT UNSP FOOT W UNSP SEVERITY; M86.9 - OSTEOMYELITIS, UNSPECIFIED (5) S/P BKA (below knee amputation) unilateral Code(s): Z89.519 - ACQUIRED ABSENCE OF UNSPECIFIED LEG BELOW KNEE Assessment/Plan Assessment/Plan In summary 52 y.o. female with PMH of Uncontrolled DM, PAD s/p Rt fem-tibial bypass, s/p Lt BKA, HTN, HLD, depression and chronic Rt heel ulcer s/p debridement on and course of antibiotics re-admitted with malodorous drainage from Rt heel wound --with exposed bone) continue abx wound vac today monitor bp/bgm pain under control meds reviewed will follow.
--- NOTE | 2017-11-18 13:34 | PN ---
Progress Note (short form) - Note Progress Note: wound vac applied to patients right heel with white sponge on bone then black sponge. the patient tolerated the procedure well. vac set to 75. vac change schedule for M,W,F Problem List - Problems (1) Open wound of heel Code(s): S91.309A - UNSPECIFIED OPEN WOUND, UNSPECIFIED FOOT, INITIAL ENCOUNTER
--- NOTE | 2017-11-18 13:54 | CON.ID ---
Consult - History of Present Illness History of Present Illness: 52 y.o. female with PMH of PAD s/p RLE femoral-tibial bypass, Lt BKA, uncontrolled DM, HTN, HLD, and chronic Rt heel ulcer presents with Rt heel ulcer foul-smelling drainage, swelling, and tenderness that was noted first a few days earlier. She as recently hospitalized, on antibiotics, and discharged on 10/21/17. Pt is s/p debridement of the site on 10/12/17 and has had a wound vac on. She is afebrile, alert, complaining of pain in Rt heel on which wound vac was placed today. ESR is elevated. She reports one episode of vomiting after breakfast but no current nausea. Has no abd pain/diarrhea/ shortness of breath/chest pain/dysuria or any other specific complaints. - History Source History Provided By: Patient, Medical Record Limitations to Obtaining History: No Limitations - Past Medical History Cardio/Vascular: Yes: HTN, Hyperlipdemia, Other (PVD) ...LMP: 02/23/17 ...: No Endocrine: Yes: Diabetes Mellitus - Past Surgical History Past Surgical History: Yes: (multiple c-sections in past) - Alcohol/Substance Use Hx Alcohol Use: No History of Substance Use: reports: None - Smoking History Smoking history: Never smoked - Social History Usual Living Arrangement: With Significant Other History of Recent Travel: No Home Medications - Allergies Allergies/Adverse Reactions: Allergies Allergy/AdvReac Type Severity Reaction Status Date / Time Penicillins Allergy Unknown "OUT OF IT" Verified 11/17/17 21:37 - Home Medications Home Medications: Ambulatory Orders Acetaminophen [Tylenol] 650 mg PO Q6H PRN 09/14/17 Glipizide [Glipizide Xl] 5 mg PO BID 09/14/17 Lisinopril [Prinivil] 20 mg PO DAILY 09/14/17 Amlodipine Besylate [Norvasc -] 10 mg PO DAILY #30 tablet 10/05/17 Ascorbic Acid [Vitamin C -] 500 mg PO BID #60 tablet 10/05/17 Atorvastatin Ca [Lipitor] 80 mg PO HS #30 tablet 10/05/17 Carvedilol [Coreg -] 12.5 mg PO BID #30 tablet 10/05/17 Docusate Sodium [Colace -] 100 mg PO BID #30 capsule 10/05/17 Ferrous Sulfate [Feosol] 325 mg PO DAILY #30 tablet 10/05/17 Folic Acid 1 mg PO DAILY #30 tablet 10/05/17 Zinc Sulfate [Orazinc -] 220 mg PO BID #60 capsule 10/05/17 Aspirin Coated [Ecotrin -] 81 mg PO DAILY tablet.ec 10/19/17 Clopidogrel Bisulfate [Plavix -] 75 mg PO DAILY tablet 10/19/17 Enoxaparin [Lovenox -] 30 mg SQ DAILY disp.syrin 10/19/17 Losartan Potassium 50 mg PO DAILY 10/26/17 Alogliptin Benzoate [Nesina] 6.25 mg PO DAILY 11/17/17 Duloxetine HCl 60 mg PO DAILY 11/17/17 Gabapentin 400 mg PO TID 11/17/17 Insulin Glargine,Hum.rec.anlog [Basaglar Kwikpen U-100] 22 unit SQ HS 11/17/17 Insulin Lispro [Admelog] See Protocol SQ BIDAC 11/17/17 Multivitamin [One Daily] 1 each PO DAILY 11/17/17 Oxycodone HCl 10 mg PO Q8H PRN 11/17/17 Pantoprazole Sodium [Protonix -] 40 mg PO DAILY 11/17/17 Family Disease History - Family Disease History Family Disease History: Diabetes: Father, Mother, Brother Review of Systems - Review of Systems Constitutional: reports: Weakness. denies: No Symptoms, Chills, Diaphoresis, Fever, Lethargy, Loss of Appetite, Malaise, Night Sweats, Unintentional Wgt. Loss, Other Eyes: reports: No Symptoms. denies: Blind Spots, Blurred Vision, Double Vision , Eye Pain, Floaters, Photophobia, Recent Change in Vision, Other HENT: reports: No Symptoms. denies: Difficult Swallowing, Ear Discharge, Ear Pain, Epistaxis, Gingival Bleeding, Hearing Loss, Mouth Swelling, Nasal Congestion, Ocular Prosthesis, Throat Pain, Toothache, Ringing in Ears, Other Neck: reports: No Symptoms. denies: Decreased ROM, Lumps, Pain on Movement, Stiffness, Swollen Glands, Tenderness, Other Cardiovascular: reports: No Symptoms. denies: Chest Pain, Edema, Palpitations, Shortness of Breath, Other Respiratory: reports: No Symptoms. denies: Cough, Exercise Intolerance, Hemoptysis, Orthopnea, PND, Snoring, SOB, SOB on Exertion, Wheezing, Other Gastrointestinal: reports: Vomiting (1 episode in a.m. post breakfast). denies : No Symptoms, Abdominal Pain, Bloating, Constipation, Diarrhea, Dysphagia, Indigestion, Melena, Nausea, Rectal Bleeding, Vomiting Blood, Other Genitourinary: reports: No Symptoms. denies: Burning, Discharge, Dysuria, Flank Pain, Frequency, Hematuria, Incontinence, Lesions, Menses, Pain, Testicular Mass, Testicular Pain, Testicular Swelling, Urgency, Vaginal Bleeding , Other Breasts: reports: No Symptoms Reported. denies: See HPI, Breast Implants, Discharge from Nipple, Lumps, Pain, Skin Changes, Other Musculoskeletal: reports: Extremity Pain (Rt foot). denies: No Symptoms, Back Pain, Crepitus, Decreased ROM, Joint Pain, Joint Swelling, Muscle Pain, Muscle Cramps, Muscle Weakness, Other Integumentary: reports: Wound (Rt heel) Neurological: reports: No Symptoms. denies: Change in LOC, Change in Speech, Confusion, Dizziness, Headache, Incoordination, Numbness, Parasthesia, Pre- Existing Deficit, Seizure, Syncope, Tremors, Unsteady Gait, Weakness, Other Endocrine: reports: No Symptoms. denies: Excessive Sweating, Flushing, Increased Hunger, Increased Thirst, Intolerance to Cold, Intolerance to Heat, Unexplained Weight Gain, Unexplained Weight Loss, Other Hematology/Lymphatic: reports: No Symptoms. denies: Easily Bruised, Excessive Bleeding, Swollen Glands, Other Psychiatric: reports: No Symptoms. denies: Altered Sleep Pattern, Anxiety, Depression, Hallucinations, Panic, Paranoia, Suicidal, Other Physical Exam Vital Signs: Vital Signs Temperature 97.5 F L 11/18/17 09:58 Pulse Rate 96 H 11/18/17 11:22 Respiratory Rate 20 11/18/17 11:22 Blood Pressure 143/75 11/18/17 11:22 O2 Sat by Pulse Oximetry (%) 99 11/18/17 02:20 Constitutional: Yes: No Distress, Calm Eyes: Yes: WNL HENT: Yes: Atraumatic, Normocephalic Neck: Yes: Supple Cardiovascular: Yes: Tachycardia Respiratory: Yes: CTA Bilaterally Gastrointestinal: Yes: Normal Bowel Sounds, Soft Renal/: Yes: WNL Musculoskeletal: Yes: WNL Edema: No Wound/Incision: Yes: Well Approximated (Rt leg wound healed, no dehiscence/ erythema), Other (Rt heel wound vac, + tenderness, no coolness to touch) Neurological: Yes: Alert, Oriented Labs: CBC, BMP 11/18/17 06:00 11/18/17 06:00 Laboratory Last Values WBC 9.4 K/mm3 (4.0-10.0) 11/18/17 06:00 RBC 2.61 M/mm3 (3.60-5.2) L 11/18/17 06:00 Hgb 7.7 GM/dL (10.7-15.3) L 11/18/17 06:00 Hct 23.1 % (32.4-45.2) L D 11/18/17 06:00 MCV 88.4 fl (80-96) 11/18/17 06:00 MCH 29.7 pg (25.7-33.7) 11/18/17 06:00 MCHC 33.6 g/dl (32.0-36.0) 11/18/17 06:00 RDW 15.6 % (11.6-15.6) 11/18/17 06:00 Plt Count 421 K/MM3 (134-434) 11/18/17 06:00 MPV 7.1 fl (7.5-11.1) L 11/18/17 06:00 Absolute Neuts (auto) 6.6 K/mm3 (1.5-8.0) 11/18/17 06:00 Neutrophils % 70.4 % (42.8-82.8) 11/18/17 06:00 Lymphocytes % 16.3 % (8-40) D 11/18/17 06:00 Monocytes % 8.0 % (3.8-10.2) 11/18/17 06:00 Eosinophils % 3.6 % (0-4.5) 11/18/17 06:00 Basophils % 1.7 % (0-2.0) 11/18/17 06:00 Nucleated RBC % 0 % (0-0) 11/18/17 06:00 ESR 120 mm/hr (0-30) H 11/17/17 19:26 PT with INR 12.10 SEC (9.7-13.0) 11/17/17 19:53 INR 1.07 (0.83-1.09) 11/17/17 19:53 PTT (Actin FS) 29.7 SECONDS (25.2-36.5) 11/17/17 19:53 Sodium 140 mmol/L (136-145) 11/18/17 06:00 Potassium 4.7 mmol/L (3.5-5.1) 11/18/17 06:00 Chloride 105 mmol/L (98-107) 11/18/17 06:00 Carbon Dioxide 28 mmol/L (21-32) 11/18/17 06:00 Anion Gap 7 MMOL/L (8-16) L 11/18/17 06:00 BUN 38 mg/dL (7-18) H 11/18/17 06:00 Creatinine 0.8 mg/dL (0.55-1.3) 11/18/17 06:00 Creat Clearance w eGFR > 60 (>60) 11/18/17 06:00 POC Glucometer 169 UNITS (80-120) 11/18/17 11:24 Random Glucose 184 mg/dL (74-106) H 11/18/17 06:00 Calcium 9.0 mg/dL (8.5-10.1) 11/18/17 06:00 Phosphorus 5.0 mg/dL (2.5-4.9) H 11/18/17 06:00 Magnesium 1.8 mg/dL (1.8-2.4) 11/18/17 06:00 Total Bilirubin 0.3 mg/dL (0.2-1.0) 11/17/17 19:26 AST 22 U/L (15-37) 11/17/17 19:26 ALT 47 U/L (13-61) 11/17/17 19:26 Alkaline Phosphatase 123 U/L (45-117) H 11/17/17 19:26 C-Reactive Protein 1.2 MG/DL (0.00-0.3) H 11/17/17 19:26 Total Protein 8.3 g/dl (6.4-8.2) H 11/17/17 19:26 Albumin 2.8 g/dl (3.4-5.0) L 11/17/17 19:26 Blood Type A POSITIVE 11/17/17 19:53 Antibody Screen Negative 11/17/17 19:53 Imaging - Results Chest X-ray: Report Reviewed X-ray: Report Reviewed Problem List - Problems (1) Diabetic foot ulcer Code(s): E11.621 - TYPE 2 DIABETES MELLITUS WITH FOOT ULCER; L97.509 - NON- PRESSURE CHRONIC ULCER OTH PRT UNSP FOOT W UNSP SEVERITY (2) Osteomyelitis Code(s): M86.9 - OSTEOMYELITIS, UNSPECIFIED Qualifiers: Osteomyelitis type: unspecified type Osteomyelitis location: foot Laterality: right Qualified Code(s): M86.9 - Osteomyelitis, unspecified (3) Anemia Code(s): D64.9 - ANEMIA, UNSPECIFIED (4) Depression Code(s): F32.9 - MAJOR DEPRESSIVE DISORDER, SINGLE EPISODE, UNSPECIFIED Qualifiers: Depression Type: other depression Qualified Code(s): F32.89 - Other specified depressive episodes (5) Diabetes mellitus Code(s): E11.9 - TYPE 2 DIABETES MELLITUS WITHOUT COMPLICATIONS Qualifiers: Diabetes mellitus type: type 2 Diabetes mellitus fpc insulin use: without terminal clerk use Diabetes mellitus complication status: with circulatory complication Diabetes mellitus complication detail: with peripheral angiopathy with gangrene Qualified Code(s): E11.52 - Type 2 diabetes mellitus with diabetic peripheral angiopathy with gangrene (6) S/P BKA (below knee amputation) unilateral Code(s): Z89.519 - ACQUIRED ABSENCE OF UNSPECIFIED LEG BELOW KNEE (7) S/P vascular bypass Code(s): Z95.828 - PRESENCE OF OTHER VASCULAR IMPLANTS AND GRAFTS (8) HTN (hypertension) Code(s): I10 - ESSENTIAL (PRIMARY) HYPERTENSION Qualifiers: Hypertension type: essential hypertension Qualified Code(s): I10 - Essential (primary) hypertension (9) Hypercholesterolemia Code(s): E78.00 - PURE HYPERCHOLESTEROLEMIA, UNSPECIFIED (10) Femoral-popliteal artery atherosclerosis Code(s): I70.209 - UNSP ATHSCL [place] ARTERIES OF EXTREMITIES, UNSP EXTREMITY Assessment/Plan 52 y.o. female with PMH of Uncontrolled DM, PAD s/p Rt fem-tibial bypass, s/p Lt BKA, HTN, HLD, depression and chronic Rt heel ulcer s/p debridement on and course of antibiotics re-admitted with malodorous drainage from Rt heel wound (described as 5X5 cm, with exposed bone) for past few days. Pt currently with wound vac on, +tenderness, elevated ESR. Infected Diabetic Rt heel ulcer/OM Uncontrolled DM PAD s/p RLE bypass s/p Lt BKA HTN HLD -- cont. IV antibiotics for now -- suggest bone biopsy/culture (E.coli/MRSA isolated in 06/22 wound cultures), scheduled for debridement on 11/21/17 -- continue wound care -- needs glycemic control -- monitor renal function, esr trend will follow Thank you
[2017-11-18] MEDS: MEROPENEM 1 GM in DEXTROSE 5%-WATER 100 ML IVPB SCH ×2 (15:00→18:21)
[2017-11-18] MEDS: VANCOMYCIN 1,000 MG in DEXTROSE 5%-WATER - 250 ML IVPB SCH (21:04)
[2017-11-18] MEDS: ATORVASTATIN CA 80 MG TABLET (FP) PO SCH (21:45)
[2017-11-18] MEDS: INSULIN (LEVEMIR) 100 UNITS/ML UNITS SQ SCH ×2 (21:45→21:51)
[2017-11-19] MEDS: MEROPENEM 1 GM in DEXTROSE 5%-WATER 100 ML IVPB SCH ×3 (01:26→17:18)
[2017-11-19] MEDS: GABAPENTIN 400 MG CAPSULE (FP) PO SCH ×3 (06:55→21:27)
[2017-11-19] MEDS: INSULIN SLIDING SCALE (NOVOLOG) 1 VIAL SQ SCH ×4 (06:55→21:29)
[2017-11-19] MEDS: oxyCODONE HCL 5 MG TABLET PO PRN (06:56)
[2017-11-19 07:07] LABS: BASO % 2.4 % (0-2.0); EOS % 4.5 % (0-4.5); HEMATOCRIT 22.2 % (32.4-45.2); HEMOGLOBIN 7.4 GM/dL (10.7-15.3); LYMPH % 20.9 % (8-40); MCH 29.3 pg (25.7-33.7); MCHC 33.3 g/dl (32.0-36.0); MEAN CELL VOLUME 87.8 fl (80-96); MEAN PLT VOLUME 6.8 fl (7.5-11.1); MONO % 9.4 % (3.8-10.2); NEUT % 62.8 % (42.8-82.8); PLATELET COUNT 396 K/MM3 (134-434); RBC 2.53 M/mm3 (3.60-5.2); RDW 15.8 % (11.6-15.6); WHITE BLOOD COUNT 6.7 K/mm3 (4.0-10.0)
[2017-11-19] MEDS ORDERED: INSULIN (LEVEMIR) 100 UNITS/ML UNITS SQ ONE (07:54)
[2017-11-19] MEDS ORDERED: INSULIN (NOVOLOG) ASPART 100 UNITS/ML 10ML VIAL ONE (07:54)
[2017-11-19 08:01] LABS: CHLORIDE 104 mmol/L (98-107); POTASSIUM 5.4 mmol/L (3.5-5.1); SODIUM 138 mmol/L (136-145)
[2017-11-19 08:09] LABS: ALBUMIN 2.3 g/dl (3.4-5.0); ALK PHOS 104 U/L (45-117); ANION GAP 6 MMOL/L (8-16); BILIRUBIN,TOTAL 0.4 mg/dL (0.2-1.0); BLOOD UREA NITROGEN 34 mg/dL (7-18); CO2 28 mmol/L (21-32); CREATININE 0.8 mg/dL (0.55-1.3); GLUCOSE,RANDOM 139 mg/dL (74-106); SGOT/AST 19 U/L (15-37); SGPT/ALT 38 U/L (13-61); TOT PROT 6.8 g/dl (6.4-8.2)
[2017-11-19] MEDS: DOCUSATE SODIUM 100 MG CAPSULE (FP) PO SCH ×2 (09:55→21:27)
[2017-11-19] MEDS: CLOPIDOGREL BISULFATE 75 MG TABLET (FP) PO SCH (09:56)
[2017-11-19] MEDS: PANTOPRAZOLE 40 MG TABLET (FP) PO SCH (09:56)
[2017-11-19] MEDS: DULoxetine HCL 30 MG CAPSULE.DR (FP) PO SCH (09:56)
[2017-11-19] MEDS: ASCORBIC ACID 500 MG TABLET (FP) PO SCH ×2 (09:56→21:27)
[2017-11-19] MEDS: LISINOPRIL 20 MG TABLET (FP) PO SCH (09:59)
[2017-11-19] MEDS: FOLIC ACID 1 MG TABLET (FP) PO SCH (09:59)
[2017-11-19] MEDS: CARVEDILOL 12.5 MG TABLET (FP) PO SCH ×2 (09:59→21:27)
[2017-11-19] MEDS: LOSARTAN POTASSIUM 50 MG TABLET (FP) PO SCH (09:59)
[2017-11-19] MEDS: ASPIRIN COATED 81 MG TABLET.EC PO SCH (09:59)
[2017-11-19] MEDS: ZINC SULFATE 220 MG CAPSULE (FP) PO SCH ×2 (09:59→21:27)
[2017-11-19] MEDS: amLODIPine BESYLATE 10 MG TABLET (FP) PO SCH (09:59)
[2017-11-19] MEDS: MULTIVITAMINS (DAILY MVI) TABLET (FP) PO SCH (09:59)
[2017-11-19] MEDS: FERROUS SO4 325 MG TABLET (FP) PO SCH (09:59)
[2017-11-19] MEDS: ENOXAPARIN NA (PORCINE) 30 MG/0.3 ML DISP.SYRIN SQ SCH (10:09)
[2017-11-19] MEDS: BACITRACIN 15 GM TUBE TOPICAL OINTMENT TP SCH (10:10)
--- NOTE | 2017-11-19 12:03 | PN ---
Progress Note (short form) - Note Progress Note: comfortable no issues feels ok. i/d consult noted / appreciated Vital Signs Temp 98.4 F 11/19/17 10:00 Pulse 92 H 11/19/17 10:00 Resp 18 11/19/17 10:00 BP 153/80 11/19/17 10:00 Pulse Ox 97 11/18/17 21:00 Intake & Output 11/18/17 11/19/17 11/19/17 23:59 11:59 23:59 Intake Total 1450 300 Balance 1450 300 Intake: IVPB 350 100 Oral 1100 200 Other: Voiding Method Bedpan Bedpan # Unmeasured Voids Void 1 1 Bowel Movement No Active Medications Acetaminophen (Tylenol -) 650 mg PO Q6H PRN PRN Reason: PAIN LEVEL 1-5 Amlodipine Besylate (Norvasc -) 10 mg PO DAILY [facility] Last Admin: 11/19/17 09:59 Dose: 10 mg Ascorbic Acid (Vitamin C -) 500 mg PO BID [facility] Last Admin: 11/19/17 09:56 Dose: 500 mg Aspirin (Ecotrin -) 81 mg PO DAILY [facility] Last Admin: 11/19/17 09:59 Dose: 81 mg Atorvastatin Calcium (Lipitor -) 80 mg PO HS [facility] Last Admin: 11/18/17 21:45 Dose: 80 mg Bacitracin (Bacitracin -) 1 applic TP DAILY [facility] Last Admin: 11/19/17 10:10 Dose: 1 applic Carvedilol (Coreg -) 12.5 mg PO BID [facility] Last Admin: 11/19/17 09:59 Dose: 12.5 mg Clopidogrel Bisulfate (Plavix -) 75 mg PO DAILY [facility] Last Admin: 11/19/17 09:56 Dose: 75 mg Docusate Sodium (Colace -) 100 mg PO BID [facility] Last Admin: 11/19/17 09:55 Dose: Not Given Duloxetine HCl (Cymbalta -) 60 mg PO DAILY [facility] Last Admin: 11/19/17 09:56 Dose: 60 mg Enoxaparin Sodium (Lovenox -) 30 mg SQ DAILY [facility] Last Admin: 11/19/17 10:09 Dose: 30 mg Ferrous Sulfate (Feosol -) 325 mg PO DAILY [facility] Last Admin: 11/19/17 09:59 Dose: 325 mg Folic Acid (Folic Acid -) 1 mg PO DAILY [facility] Last Admin: 11/19/17 09:59 Dose: 1 mg Gabapentin (Neurontin -) 400 mg PO TID [facility] Last Admin: 11/19/17 06:55 Dose: 400 mg Meropenem 1 gm/ Dextrose 100 mls @ 200 mls/hr IVPB Q8H-IV [facility] Last Admin: 11/19/17 09:55 Dose: 200 mls/hr Vancomycin HCl 1,000 mg/ (Dextrose) 250 mls @ 200 mls/hr IVPB Q24H [facility]; Protocol Last Admin: 11/18/17 21:04 Dose: 200 mls/hr Insulin Aspart (Novolog Vial Sliding Scale -) 1 vial SQ ACHS [facility]; Protocol Last Admin: 11/19/17 11:29 Dose: 4 units Insulin Detemir (Levemir Vial) 22 units SQ HS [facility] Last Admin: 11/18/17 21:51 Dose: Not Given Lisinopril (Prinivil) 20 mg PO DAILY [facility] Last Admin: 11/19/17 09:59 Dose: 20 mg Losartan Potassium (Cozaar -) 50 mg PO DAILY [facility] Last Admin: 11/19/17 09:59 Dose: 50 mg Multivitamins/Minerals/Vitamin C (Tab-A-Vit -) 1 tab PO DAILY [facility] Last Admin: 11/19/17 09:59 Dose: 1 tab Oxycodone HCl (Roxicodone -) 10 mg PO Q8H PRN PRN Reason: PAIN LEVEL 6-10 Last Admin: 11/19/17 06:56 Dose: 10 mg Pantoprazole Sodium (Protonix -) 40 mg PO DAILY [facility] Last Admin: 11/19/17 09:56 Dose: 40 mg Zinc Sulfate (Orazinc -) 220 mg PO BID [facility] Last Admin: 11/19/17 09:59 Dose: 220 mg CBC, BMP 11/19/17 06:10 11/19/17 06:10 Microbiology 11/17/17 19:54 Blood Culture - Preliminary Blood - Peripheral Venous NO GROWTH OBTAINED AFTER 24 HOURS, INCUBATION TO CONTINUE FOR 4 DAYS. 11/17/17 18:40 Blood Culture - Preliminary Blood - Peripheral Venous NO GROWTH OBTAINED AFTER 24 HOURS, INCUBATION TO CONTINUE FOR 4 DAYS. Physical Constitutional: Yes: No Distress, Comfortable. Eyes: Yes: Conjunctiva Clear Neck: Yes: Supple Cardiovascular: Yes: Regular Rate and Rhythm Respiratory: Yes: Diminished Gastrointestinal: Yes: Soft Edema: No Wound/Incision: Yes: Other (Right heel chronic wound-) s/p left BKA Psychiatric: Yes: Alert Assessment/Plan In summary 52 y.o. female with PMH of Uncontrolled DM, PAD s/p Rt fem-tibial bypass, s/p Lt BKA, HTN, HLD, depression and chronic Rt heel ulcer s/p debridement on and course of antibiotics re-admitted with malodorous drainage from Rt heel wound --with exposed bone) continue abx wound vac placed monitor bp/bgm pain under control f/u labs monitor cbc check sob will follow debrigement on tuesday
--- NOTE | 2017-11-19 13:57 | PN ---
Progress Note, Physician History of Present Illness: Pt is alert, remains afebrile. States pain in Rt foot is controlled. Denies having any specific complaints. - Current Medication List Current Medications: Active Medications Acetaminophen (Tylenol -) 650 mg PO Q6H PRN PRN Reason: PAIN LEVEL 1-5 Amlodipine Besylate (Norvasc -) 10 mg PO DAILY [facility] Last Admin: 11/19/17 09:59 Dose: 10 mg Ascorbic Acid (Vitamin C -) 500 mg PO BID [facility] Last Admin: 11/19/17 09:56 Dose: 500 mg Aspirin (Ecotrin -) 81 mg PO DAILY [facility] Last Admin: 11/19/17 09:59 Dose: 81 mg Atorvastatin Calcium (Lipitor -) 80 mg PO HS [facility] Last Admin: 11/18/17 21:45 Dose: 80 mg Bacitracin (Bacitracin -) 1 applic TP DAILY [facility] Last Admin: 11/19/17 10:10 Dose: 1 applic Carvedilol (Coreg -) 12.5 mg PO BID [facility] Last Admin: 11/19/17 09:59 Dose: 12.5 mg Clopidogrel Bisulfate (Plavix -) 75 mg PO DAILY [facility] Last Admin: 11/19/17 09:56 Dose: 75 mg Docusate Sodium (Colace -) 100 mg PO BID [facility] Last Admin: 11/19/17 09:55 Dose: Not Given Duloxetine HCl (Cymbalta -) 60 mg PO DAILY [facility] Last Admin: 11/19/17 09:56 Dose: 60 mg Enoxaparin Sodium (Lovenox -) 30 mg SQ DAILY [facility] Last Admin: 11/19/17 10:09 Dose: 30 mg Ferrous Sulfate (Feosol -) 325 mg PO DAILY [facility] Last Admin: 11/19/17 09:59 Dose: 325 mg Folic Acid (Folic Acid -) 1 mg PO DAILY [facility] Last Admin: 11/19/17 09:59 Dose: 1 mg Gabapentin (Neurontin -) 400 mg PO TID [facility] Last Admin: 11/19/17 13:20 Dose: 400 mg Meropenem 1 gm/ Dextrose 100 mls @ 200 mls/hr IVPB Q8H-IV [facility] Last Admin: 11/19/17 09:55 Dose: 200 mls/hr Vancomycin HCl 1,000 mg/ (Dextrose) 250 mls @ 200 mls/hr IVPB Q24H [facility]; Protocol Last Admin: 11/18/17 21:04 Dose: 200 mls/hr Insulin Aspart (Novolog Vial Sliding Scale -) 1 vial SQ ACHS [facility]; Protocol Last Admin: 11/19/17 11:29 Dose: 4 units Insulin Detemir (Levemir Vial) 22 units SQ HS [facility] Last Admin: 11/18/17 21:51 Dose: Not Given Lisinopril (Prinivil) 20 mg PO DAILY [facility] Last Admin: 11/19/17 09:59 Dose: 20 mg Losartan Potassium (Cozaar -) 50 mg PO DAILY [facility] Last Admin: 11/19/17 09:59 Dose: 50 mg Multivitamins/Minerals/Vitamin C (Tab-A-Vit -) 1 tab PO DAILY [facility] Last Admin: 11/19/17 09:59 Dose: 1 tab Oxycodone HCl (Roxicodone -) 10 mg PO Q8H PRN PRN Reason: PAIN LEVEL 6-10 Last Admin: 11/19/17 06:56 Dose: 10 mg Pantoprazole Sodium (Protonix -) 40 mg PO DAILY [facility] Last Admin: 11/19/17 09:56 Dose: 40 mg Zinc Sulfate (Orazinc -) 220 mg PO BID [facility] Last Admin: 11/19/17 09:59 Dose: 220 mg - Objective Vital Signs: Vital Signs Temperature 98.4 F 11/19/17 10:00 Pulse Rate 92 H 11/19/17 10:00 Respiratory Rate 18 11/19/17 10:00 Blood Pressure 153/80 11/19/17 10:00 O2 Sat by Pulse Oximetry (%) 97 11/18/17 21:00 Constitutional: Yes: No Distress, Calm Eyes: Yes: Conjunctiva Clear Cardiovascular: Yes: Regular Rate and Rhythm Respiratory: Yes: CTA Bilaterally Gastrointestinal: Yes: Normal Bowel Sounds, Soft Genitourinary: Yes: WNL Edema: No Wound/Incision: Yes: Other (Rt foot wound vac in place, no edema, warm to touch) Neurological: Yes: Alert, Oriented Labs: CBC, BMP 11/19/17 06:10 11/19/17 06:10 INR, PTT INR 1.07 (0.83-1.09) 11/17/17 19:53 Problem List - Problems (1) Diabetic foot ulcer Code(s): E11.621 - TYPE 2 DIABETES MELLITUS WITH FOOT ULCER; L97.509 - NON- PRESSURE CHRONIC ULCER OTH PRT UNSP FOOT W UNSP SEVERITY (2) Osteomyelitis Code(s): M86.9 - OSTEOMYELITIS, UNSPECIFIED Qualifiers: Osteomyelitis type: unspecified type Osteomyelitis location: foot Laterality: right Qualified Code(s): M86.9 - Osteomyelitis, unspecified (3) Anemia Code(s): D64.9 - ANEMIA, UNSPECIFIED (4) Depression Code(s): F32.9 - MAJOR DEPRESSIVE DISORDER, SINGLE EPISODE, UNSPECIFIED Qualifiers: Depression Type: other depression Qualified Code(s): F32.89 - Other specified depressive episodes (5) Diabetes mellitus Code(s): E11.9 - TYPE 2 DIABETES MELLITUS WITHOUT COMPLICATIONS Qualifiers: Diabetes mellitus type: type 2 Diabetes mellitus half-way insulin use: without termite helper use Diabetes mellitus complication status: with circulatory complication Diabetes mellitus complication detail: with peripheral angiopathy with gangrene Qualified Code(s): E11.52 - Type 2 diabetes mellitus with diabetic peripheral angiopathy with gangrene (6) S/P BKA (below knee amputation) unilateral Code(s): Z89.519 - ACQUIRED ABSENCE OF UNSPECIFIED LEG BELOW KNEE (7) S/P vascular bypass Code(s): Z95.828 - PRESENCE OF OTHER VASCULAR IMPLANTS AND GRAFTS (8) HTN (hypertension) Code(s): I10 - ESSENTIAL (PRIMARY) HYPERTENSION Qualifiers: Hypertension type: essential hypertension Qualified Code(s): I10 - Essential (primary) hypertension (9) Hypercholesterolemia Code(s): E78.00 - PURE HYPERCHOLESTEROLEMIA, UNSPECIFIED (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 female with PMH of Uncontrolled DM, PAD s/p Rt fem-tibial bypass, s/p Lt BKA, HTN, HLD, depression and chronic Rt heel ulcer s/p debridement on and course of antibiotics re-admitted with malodorous drainage from Rt heel wound (described as 5X5 cm, with exposed bone) for past few days. Pt currently with wound vac on, +tenderness, elevated ESR. Infected Diabetic Rt heel ulcer/OM Uncontrolled DM PAD s/p RLE bypass s/p Lt BKA HTN HLD -- cont. IV antibiotics -- suggest bone biopsy/culture - scheduled for debridement on 11/21/17 -- continue wound care -- needs glycemic control -- monitor renal function, esr trend pt currently stable, pain controlled.
[2017-11-19] MEDS ORDERED: PT OWN MED DRAWER 7, Y5N ONE (19:31)
[2017-11-19] MEDS: VANCOMYCIN 1,000 MG in DEXTROSE 5%-WATER - 250 ML IVPB SCH (21:26)
[2017-11-19] MEDS: ATORVASTATIN CA 80 MG TABLET (FP) PO SCH (21:27)
[2017-11-19] MEDS: INSULIN (LEVEMIR) 100 UNITS/ML UNITS SQ SCH (21:28)
[2017-11-20] MEDS ORDERED: PT OWN MED DRAWER 7, Y5N ONE ×2 (01:01→20:07)
[2017-11-20] MEDS: MEROPENEM 1 GM in DEXTROSE 5%-WATER 100 ML IVPB SCH ×3 (02:20→17:19)
[2017-11-20] MEDS: INSULIN SLIDING SCALE (NOVOLOG) 1 VIAL SQ SCH ×4 (06:33→21:44)
[2017-11-20] MEDS: GABAPENTIN 400 MG CAPSULE (FP) PO SCH ×3 (06:33→21:44)
[2017-11-20] MEDS ORDERED: INSULIN (NOVOLOG) ASPART 100 UNITS/ML 10ML VIAL ONE (10:48)
[2017-11-20] MEDS: ASCORBIC ACID 500 MG TABLET (FP) PO SCH ×2 (10:55→21:44)
[2017-11-20] MEDS: DULoxetine HCL 30 MG CAPSULE.DR (FP) PO SCH (10:55)
[2017-11-20] MEDS: LISINOPRIL 20 MG TABLET (FP) PO SCH (10:55)
[2017-11-20] MEDS: CARVEDILOL 12.5 MG TABLET (FP) PO SCH ×2 (10:55→21:44)
[2017-11-20] MEDS: PANTOPRAZOLE 40 MG TABLET (FP) PO SCH (10:55)
[2017-11-20] MEDS: MULTIVITAMINS (DAILY MVI) TABLET (FP) PO SCH (10:55)
[2017-11-20] MEDS: amLODIPine BESYLATE 10 MG TABLET (FP) PO SCH (10:55)
[2017-11-20] MEDS: ZINC SULFATE 220 MG CAPSULE (FP) PO SCH ×2 (10:55→21:44)
[2017-11-20] MEDS: FOLIC ACID 1 MG TABLET (FP) PO SCH (10:55)
[2017-11-20] MEDS: LOSARTAN POTASSIUM 50 MG TABLET (FP) PO SCH (10:55)
[2017-11-20] MEDS: FERROUS SO4 325 MG TABLET (FP) PO SCH (10:55)
[2017-11-20] MEDS: DOCUSATE SODIUM 100 MG CAPSULE (FP) PO SCH ×2 (11:01→21:44)
[2017-11-20] MEDS: BACITRACIN 15 GM TUBE TOPICAL OINTMENT TP SCH (11:55)
[2017-11-20] MEDS: oxyCODONE HCL 5 MG TABLET PO PRN (12:27)
--- NOTE | 2017-11-20 12:33 | PN ---
Progress Note, Physician History of Present Illness: Pt is alert, afebrile. Just took pain medication, pain in Rt foot is controlled. Wound vac in place. - Current Medication List Current Medications: Active Medications Acetaminophen (Tylenol -) 650 mg PO Q6H PRN PRN Reason: PAIN LEVEL 1-5 Amlodipine Besylate (Norvasc -) 10 mg PO DAILY [facility] Last Admin: 11/20/17 10:55 Dose: 10 mg Ascorbic Acid (Vitamin C -) 500 mg PO BID [facility] Last Admin: 11/20/17 10:55 Dose: 500 mg Aspirin (Ecotrin -) 81 mg PO DAILY [facility] Last Admin: 11/19/17 09:59 Dose: 81 mg Atorvastatin Calcium (Lipitor -) 80 mg PO HS [facility] Last Admin: 11/19/17 21:27 Dose: 80 mg Bacitracin (Bacitracin -) 1 applic TP DAILY [facility] Last Admin: 11/20/17 11:55 Dose: 1 applic Carvedilol (Coreg -) 12.5 mg PO BID [facility] Last Admin: 11/20/17 10:55 Dose: 12.5 mg Clopidogrel Bisulfate (Plavix -) 75 mg PO DAILY [facility] Last Admin: 11/19/17 09:56 Dose: 75 mg Docusate Sodium (Colace -) 100 mg PO BID [facility] Last Admin: 11/20/17 11:01 Dose: Not Given Duloxetine HCl (Cymbalta -) 60 mg PO DAILY [facility] Last Admin: 11/20/17 10:55 Dose: 60 mg Enoxaparin Sodium (Lovenox -) 30 mg SQ DAILY [facility] Last Admin: 11/19/17 10:09 Dose: 30 mg Ferrous Sulfate (Feosol -) 325 mg PO DAILY [facility] Last Admin: 11/20/17 10:55 Dose: 325 mg Folic Acid (Folic Acid -) 1 mg PO DAILY [facility] Last Admin: 11/20/17 10:55 Dose: 1 mg Gabapentin (Neurontin -) 400 mg PO TID [facility] Last Admin: 11/20/17 06:33 Dose: 400 mg Meropenem 1 gm/ Dextrose 100 mls @ 200 mls/hr IVPB Q8H-IV [facility] Last Admin: 11/20/17 11:54 Dose: 200 mls/hr Vancomycin HCl 1,000 mg/ (Dextrose) 250 mls @ 200 mls/hr IVPB Q24H [facility]; Protocol Last Admin: 11/19/17 21:26 Dose: 200 mls/hr Insulin Aspart (Novolog Vial Sliding Scale -) 1 vial SQ ACHS [facility]; Protocol Last Admin: 11/20/17 11:06 Dose: 2 units Insulin Detemir (Levemir Vial) 22 units SQ HS [facility] Last Admin: 11/19/17 21:28 Dose: Not Given Lisinopril (Prinivil) 20 mg PO DAILY [facility] Last Admin: 11/20/17 10:55 Dose: 20 mg Losartan Potassium (Cozaar -) 50 mg PO DAILY [facility] Last Admin: 11/20/17 10:55 Dose: 50 mg Multivitamins/Minerals/Vitamin C (Tab-A-Vit -) 1 tab PO DAILY [facility] Last Admin: 11/20/17 10:55 Dose: 1 tab Oxycodone HCl (Roxicodone -) 10 mg PO Q8H PRN PRN Reason: PAIN LEVEL 6-10 Last Admin: 11/20/17 12:27 Dose: 10 mg Pantoprazole Sodium (Protonix -) 40 mg PO DAILY [facility] Last Admin: 11/20/17 10:55 Dose: 40 mg Zinc Sulfate (Orazinc -) 220 mg PO BID [facility] Last Admin: 11/20/17 10:55 Dose: 220 mg - Objective Vital Signs: Vital Signs Temperature 98.7 F 11/20/17 10:00 Pulse Rate 90 11/20/17 10:00 Respiratory Rate 18 11/20/17 10:00 Blood Pressure 131/74 11/20/17 10:00 O2 Sat by Pulse Oximetry (%) 99 11/19/17 21:00 Constitutional: Yes: No Distress, Calm Cardiovascular: Yes: Regular Rate and Rhythm Respiratory: Yes: Regular Gastrointestinal: Yes: Normal Bowel Sounds, Soft Genitourinary: Yes: WNL Wound/Incision: Yes: Other (Rt heel wound vac in place, no foot erythema/edema, +mild tenderness) Neurological: Yes: Alert, Oriented Labs: CBC, BMP 11/19/17 06:10 11/19/17 06:10 INR, PTT INR 1.07 (0.83-1.09) 11/17/17 19:53 Problem List - Problems (1) Diabetic foot ulcer Code(s): E11.621 - TYPE 2 DIABETES MELLITUS WITH FOOT ULCER; L97.509 - NON- PRESSURE CHRONIC ULCER OTH PRT UNSP FOOT W UNSP SEVERITY (2) Osteomyelitis Code(s): M86.9 - OSTEOMYELITIS, UNSPECIFIED Qualifiers: Osteomyelitis type: unspecified type Osteomyelitis location: foot Laterality: right Qualified Code(s): M86.9 - Osteomyelitis, unspecified (3) Anemia Code(s): D64.9 - ANEMIA, UNSPECIFIED (4) Depression Code(s): F32.9 - MAJOR DEPRESSIVE DISORDER, SINGLE EPISODE, UNSPECIFIED Qualifiers: Depression Type: other depression Qualified Code(s): F32.89 - Other specified depressive episodes (5) Diabetes mellitus Code(s): E11.9 - TYPE 2 DIABETES MELLITUS WITHOUT COMPLICATIONS Qualifiers: Diabetes mellitus type: type 2 Diabetes mellitus detention insulin use: without terminal press operator use Diabetes mellitus complication status: with circulatory complication Diabetes mellitus complication detail: with peripheral angiopathy with gangrene Qualified Code(s): E11.52 - Type 2 diabetes mellitus with diabetic peripheral angiopathy with gangrene (6) S/P BKA (below knee amputation) unilateral Code(s): Z89.519 - ACQUIRED ABSENCE OF UNSPECIFIED LEG BELOW KNEE (7) S/P vascular bypass Code(s): Z95.828 - PRESENCE OF OTHER VASCULAR IMPLANTS AND GRAFTS (8) HTN (hypertension) Code(s): I10 - ESSENTIAL (PRIMARY) HYPERTENSION Qualifiers: Hypertension type: essential hypertension Qualified Code(s): I10 - Essential (primary) hypertension (9) Hypercholesterolemia Code(s): E78.00 - PURE HYPERCHOLESTEROLEMIA, UNSPECIFIED (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 female with PMH of Uncontrolled DM, PAD s/p Rt fem-tibial bypass, s/p Lt BKA, HTN, HLD, depression and chronic Rt heel ulcer s/p debridement on and course of antibiotics re-admitted with malodorous drainage from Rt heel wound (described as 5X5 cm, with exposed bone) for past few days. Pt currently with wound vac on, +tenderness, elevated ESR. Infected Diabetic Rt heel ulcer/OM Uncontrolled DM PAD s/p RLE bypass s/p Lt BKA HTN HLD -- cont. current antibiotics -- suggest bone biopsy/culture - scheduled for debridement tomorrow, adjust antibiotics based on results -- Vancomycin Trough prior to 4th dose -- needs glycemic control -- monitor renal function, esr trend pt currently stable, pain controlled.
[2017-11-20] MEDS: ASPIRIN COATED 81 MG TABLET.EC PO SCH (12:38)
[2017-11-20] MEDS: ENOXAPARIN NA (PORCINE) 30 MG/0.3 ML DISP.SYRIN SQ SCH (12:39)
[2017-11-20] MEDS: CLOPIDOGREL BISULFATE 75 MG TABLET (FP) PO SCH (12:39)
--- NOTE | 2017-11-20 14:23 | PN ---
Progress Note (short form) - Note Progress Note: pt seen/ examined comfortable sister at bedside all f/u noted for or tomorrow h/h - stable-- h/o anemia -- no obvious bleeding stool for occult blood pending Anemia work -- can be done as out pt pain under control Vital Signs Temp 98.7 F 11/20/17 10:00 Pulse 90 11/20/17 10:00 Resp 18 11/20/17 10:00 BP 131/74 11/20/17 10:00 Pulse Ox 99 11/19/17 21:00 Intake & Output 11/19/17 11/20/17 11/20/17 23:59 11:59 23:59 Intake Total 800 500 Balance 800 500 Intake: IVPB 200 300 Oral 600 200 Other: Voiding Method Bedpan Bedpan # Unmeasured Voids Void 1 1 Bowel Movement No Yes # Bowel Movements 1 Active Medications Acetaminophen (Tylenol -) 650 mg PO Q6H PRN PRN Reason: PAIN LEVEL 1-5 Amlodipine Besylate (Norvasc -) 10 mg PO DAILY [facility] Last Admin: 11/20/17 10:55 Dose: 10 mg Ascorbic Acid (Vitamin C -) 500 mg PO BID [facility] Last Admin: 11/20/17 10:55 Dose: 500 mg Atorvastatin Calcium (Lipitor -) 80 mg PO HS [facility] Last Admin: 11/19/17 21:27 Dose: 80 mg Bacitracin (Bacitracin -) 1 applic TP DAILY [facility] Last Admin: 11/20/17 11:55 Dose: 1 applic Carvedilol (Coreg -) 12.5 mg PO BID [facility] Last Admin: 11/20/17 10:55 Dose: 12.5 mg Docusate Sodium (Colace -) 100 mg PO BID [facility] Last Admin: 11/20/17 11:01 Dose: Not Given Duloxetine HCl (Cymbalta -) 60 mg PO DAILY [facility] Last Admin: 11/20/17 10:55 Dose: 60 mg Ferrous Sulfate (Feosol -) 325 mg PO DAILY [facility] Last Admin: 11/20/17 10:55 Dose: 325 mg Folic Acid (Folic Acid -) 1 mg PO DAILY [facility] Last Admin: 11/20/17 10:55 Dose: 1 mg Gabapentin (Neurontin -) 400 mg PO TID [facility] Last Admin: 11/20/17 14:15 Dose: 400 mg Meropenem 1 gm/ Dextrose 100 mls @ 200 mls/hr IVPB Q8H-IV [facility] Last Admin: 11/20/17 11:54 Dose: 200 mls/hr Vancomycin HCl 1,000 mg/ (Dextrose) 250 mls @ 200 mls/hr IVPB Q24H [facility]; Protocol Last Admin: 11/19/17 21:26 Dose: 200 mls/hr Insulin Aspart (Novolog Vial Sliding Scale -) 1 vial SQ ACHS [facility]; Protocol Last Admin: 11/20/17 11:06 Dose: 2 units Insulin Detemir (Levemir Vial) 22 units SQ HS [facility] Last Admin: 11/19/17 21:28 Dose: Not Given Lisinopril (Prinivil) 20 mg PO DAILY [facility] Last Admin: 11/20/17 10:55 Dose: 20 mg Losartan Potassium (Cozaar -) 50 mg PO DAILY [facility] Last Admin: 11/20/17 10:55 Dose: 50 mg Multivitamins/Minerals/Vitamin C (Tab-A-Vit -) 1 tab PO DAILY [facility] Last Admin: 11/20/17 10:55 Dose: 1 tab Oxycodone HCl (Roxicodone -) 10 mg PO Q8H PRN PRN Reason: PAIN LEVEL 6-10 Last Admin: 11/20/17 12:27 Dose: 10 mg Pantoprazole Sodium (Protonix -) 40 mg PO DAILY [facility] Last Admin: 11/20/17 10:55 Dose: 40 mg Zinc Sulfate (Orazinc -) 220 mg PO BID [facility] Last Admin: 11/20/17 10:55 Dose: 220 mg CBC, BMP 11/19/17 06:10 11/19/17 06:10 Microbiology 11/17/17 19:54 Blood Culture - Preliminary Blood - Peripheral Venous NO GROWTH OBTAINED AFTER 48 HOURS, INCUBATION TO CONTINUE FOR 3 DAYS. 11/17/17 18:40 Blood Culture - Preliminary Blood - Peripheral Venous NO GROWTH OBTAINED AFTER 48 HOURS, INCUBATION TO CONTINUE FOR 3 DAYS. Physical Constitutional: Yes: No Distress, Comfortable. Eyes: Yes: Conjunctiva Clear Neck: Yes: Supple Cardiovascular: Yes: Regular Rate and Rhythm Respiratory: Yes: Diminished Gastrointestinal: Yes: Soft Edema: No Wound/Incision: Yes: Other (Right heel chronic wound-) s/p left BKA Psychiatric: Yes: Alert Assessment/Plan In summary 52 y.o. female with PMH of Uncontrolled DM, PAD s/p Rt fem-tibial bypass, s/p Lt BKA, HTN, HLD, depression and chronic Rt heel ulcer s/p debridement on and course of antibiotics re-admitted with malodorous drainage from Rt heel wound --with exposed bone) continue abx wound vac placed monitor bp/bgm pain under control f/u labs monitor cbc check sob -- pending will follow debrigement on tuesday Problem List - Problems (1) Diabetic foot ulcer Code(s): E11.621 - TYPE 2 DIABETES MELLITUS WITH FOOT ULCER; L97.509 - NON- PRESSURE CHRONIC ULCER OTH PRT UNSP FOOT W UNSP SEVERITY (2) Anemia Code(s): D64.9 - ANEMIA, UNSPECIFIED (3) S/P BKA (below knee amputation) unilateral Code(s): Z89.519 - ACQUIRED ABSENCE OF UNSPECIFIED LEG BELOW KNEE
[2017-11-20] MEDS ORDERED: CLOPIDOGREL BISULFATE 75 MG TABLET (FP) PO SCH (15:45)
[2017-11-20] MEDS ORDERED: ASPIRIN 81 MG CHEWABLE TABLETS PO SCH (15:45)
[2017-11-20] MEDS: VANCOMYCIN 1,000 MG in DEXTROSE 5%-WATER - 250 ML IVPB SCH (20:22)
[2017-11-20] MEDS: ATORVASTATIN CA 80 MG TABLET (FP) PO SCH (21:44)
[2017-11-20] MEDS: INSULIN (LEVEMIR) 100 UNITS/ML UNITS SQ SCH (21:45)
[2017-11-21] MEDS ORDERED: PT OWN MED DRAWER 7, Y5N ONE ×2 (00:44→18:23)
[2017-11-21] MEDS: MEROPENEM 1 GM in DEXTROSE 5%-WATER 100 ML IVPB SCH ×3 (01:19→18:38)
[2017-11-21] MEDS: GABAPENTIN 400 MG CAPSULE (FP) PO SCH ×3 (06:30→21:46)
[2017-11-21] MEDS: INSULIN SLIDING SCALE (NOVOLOG) 1 VIAL SQ SCH ×4 (06:30→21:48)
[2017-11-21 07:56] LABS: BASO % 1.7 % (0-2.0); EOS % 5.5 % (0-4.5); LYMPH % 25.4 % (8-40); MCH 29.6 pg (25.7-33.7); MCHC 33.5 g/dl (32.0-36.0); MEAN CELL VOLUME 88.4 fl (80-96); MEAN PLT VOLUME 7.1 fl (7.5-11.1); MONO % 10.3 % (3.8-10.2); NEUT % 57.1 % (42.8-82.8); PLATELET COUNT 422 K/MM3 (134-434); RBC 2.72 M/mm3 (3.60-5.2); RDW 15.5 % (11.6-15.6); WHITE BLOOD COUNT 7.1 K/mm3 (4.0-10.0)
[2017-11-21 08:33] LABS: ALBUMIN 2.5 g/dl (3.4-5.0); ALK PHOS 111 U/L (45-117); ANION GAP 8 MMOL/L (8-16); BILIRUBIN,TOTAL 0.3 mg/dL (0.2-1.0); BLOOD UREA NITROGEN 40 mg/dL (7-18); CALCIUM 8.6 mg/dL (8.5-10.1); CHLORIDE 103 mmol/L (98-107); CO2 26 mmol/L (21-32); CREATININE 0.9 mg/dL (0.55-1.3); GLUCOSE,RANDOM 186 mg/dL (74-106); POTASSIUM 5.7 mmol/L (3.5-5.1); SGOT/AST 26 U/L (15-37); SGPT/ALT 47 U/L (13-61); SODIUM 137 mmol/L (136-145); TOT PROT 7.2 g/dl (6.4-8.2)
[2017-11-21] MEDS: BACITRACIN 15 GM TUBE TOPICAL OINTMENT TP SCH (11:01)
--- NOTE | 2017-11-21 11:38 | PN ---
Progress Note (short form) - Note Progress Note: pt seen/ examined comfortable denies pain for or later today Vital Signs Temp 98.2 F 11/21/17 06:00 Pulse 97 H 11/21/17 06:00 Resp 18 11/21/17 06:00 BP 137/61 11/21/17 06:00 Pulse Ox 96 11/20/17 21:00 Intake & Output 11/20/17 11/20/17 11/21/17 11:59 23:59 11:59 Intake Total 500 1050 550 Balance 500 1050 550 Intake: IVPB 300 200 350 Oral 200 850 200 Other: Voiding Method Bedpan Bedpan # Unmeasured Voids Void 1 2 2 Bowel Movement Yes # Bowel Movements 1 Active Medications Acetaminophen (Tylenol -) 650 mg PO Q6H PRN PRN Reason: PAIN LEVEL 1-5 Amlodipine Besylate (Norvasc -) 10 mg PO DAILY [facility] Last Admin: 11/20/17 10:55 Dose: 10 mg Ascorbic Acid (Vitamin C -) 500 mg PO BID [facility] Last Admin: 11/20/17 21:44 Dose: 500 mg Aspirin (Asa -) 81 mg PO DAILY [facility] Last Admin: 11/20/17 16:09 Dose: 81 mg Atorvastatin Calcium (Lipitor -) 80 mg PO HS [facility] Last Admin: 11/20/17 21:44 Dose: 80 mg Bacitracin (Bacitracin -) 1 applic TP DAILY [facility] Last Admin: 11/20/17 11:55 Dose: 1 applic Carvedilol (Coreg -) 12.5 mg PO BID [facility] Last Admin: 11/20/17 21:44 Dose: 12.5 mg Clopidogrel Bisulfate (Plavix -) 75 mg PO DAILY [facility] Last Admin: 11/20/17 16:09 Dose: 75 mg Docusate Sodium (Colace -) 100 mg PO BID [facility] Last Admin: 11/20/17 21:44 Dose: 100 mg Duloxetine HCl (Cymbalta -) 60 mg PO DAILY [facility] Last Admin: 11/20/17 10:55 Dose: 60 mg Ferrous Sulfate (Feosol -) 325 mg PO DAILY [facility] Last Admin: 11/20/17 10:55 Dose: 325 mg Folic Acid (Folic Acid -) 1 mg PO DAILY [facility] Last Admin: 11/20/17 10:55 Dose: 1 mg Gabapentin (Neurontin -) 400 mg PO TID [facility] Last Admin: 11/21/17 06:30 Dose: 400 mg Meropenem 1 gm/ Dextrose 100 mls @ 200 mls/hr IVPB Q8H-IV [facility] Last Admin: 11/21/17 01:19 Dose: 200 mls/hr Vancomycin HCl 1,000 mg/ (Dextrose) 250 mls @ 200 mls/hr IVPB Q24H [facility]; Protocol Last Admin: 11/20/17 20:22 Dose: 200 mls/hr Insulin Aspart (Novolog Vial Sliding Scale -) 1 vial SQ ACHS [facility]; Protocol Last Admin: 11/21/17 06:30 Dose: Not Given Insulin Detemir (Levemir Vial) 22 units SQ HS [facility] Last Admin: 11/20/17 21:45 Dose: Not Given Lisinopril (Prinivil) 20 mg PO DAILY [facility] Last Admin: 11/20/17 10:55 Dose: 20 mg Losartan Potassium (Cozaar -) 50 mg PO DAILY [facility] Last Admin: 11/20/17 10:55 Dose: 50 mg Multivitamins/Minerals/Vitamin C (Tab-A-Vit -) 1 tab PO DAILY [facility] Last Admin: 11/20/17 10:55 Dose: 1 tab Pantoprazole Sodium (Protonix -) 40 mg PO DAILY [facility] Last Admin: 11/20/17 10:55 Dose: 40 mg Sodium Polystyrene Sulfonate (Kayexalate -) 15 gm PO ONCE ONE Stop: 11/21/17 11:36 Zinc Sulfate (Orazinc -) 220 mg PO BID [facility] Last Admin: 11/20/17 21:44 Dose: 220 mg CBC, BMP 11/21/17 06:20 11/21/17 06:20 Microbiology 11/17/17 19:54 Blood Culture - Preliminary Blood - Peripheral Venous NO GROWTH OBTAINED AFTER 72 HOURS, INCUBATION TO CONTINUE FOR 2 DAYS. 11/17/17 18:40 Blood Culture - Preliminary Blood - Peripheral Venous NO GROWTH OBTAINED AFTER 72 HOURS, INCUBATION TO CONTINUE FOR 2 DAYS. Physical Constitutional: Yes: No Distress, Comfortable. Eyes: Yes: Conjunctiva Clear Neck: Yes: Supple Cardiovascular: Yes: Regular Rate and Rhythm Respiratory: Yes: Diminished Gastrointestinal: Yes: Soft Edema: No Wound/Incision: Yes: Other (Right heel chronic wound-) s/p left BKA Psychiatric: Yes: Alert Assessment/Plan In summary 52 y.o. female with PMH of Uncontrolled DM, PAD s/p Rt fem-tibial bypass, s/p Lt BKA, HTN, HLD, depression and chronic Rt heel ulcer s/p debridement on and course of antibiotics re-admitted with malodorous drainage from Rt heel wound --with exposed bone) continue abx wound vac placed monitor bp/bgm pain under control monitor cbc-- stable for or today will give small dose of kayexalate will follow Problem List - Problems (1) Diabetic foot ulcer Code(s): E11.621 - TYPE 2 DIABETES MELLITUS WITH FOOT ULCER; L97.509 - NON- PRESSURE CHRONIC ULCER OTH PRT UNSP FOOT W UNSP SEVERITY (2) Anemia Code(s): D64.9 - ANEMIA, UNSPECIFIED (3) S/P BKA (below knee amputation) unilateral Code(s): Z89.519 - ACQUIRED ABSENCE OF UNSPECIFIED LEG BELOW KNEE Problem List - Problems (1) Diabetic foot ulcer Code(s): E11.621 - TYPE 2 DIABETES MELLITUS WITH FOOT ULCER; L97.509 - NON- PRESSURE CHRONIC ULCER OTH PRT UNSP FOOT W UNSP SEVERITY (2) Anemia Code(s): D64.9 - ANEMIA, UNSPECIFIED (3) S/P BKA (below knee amputation) unilateral Code(s): Z89.519 - ACQUIRED ABSENCE OF UNSPECIFIED LEG BELOW KNEE
--- NOTE | 2017-11-21 11:56 | PN ---
Progress Note, Physician History of Present Illness: stable doing well patient going to or for debridement today patient other tavarez stable - Current Medication List Current Medications: Active Medications Acetaminophen (Tylenol -) 650 mg PO Q6H PRN PRN Reason: PAIN LEVEL 1-5 Amlodipine Besylate (Norvasc -) 10 mg PO DAILY [facility] Last Admin: 11/20/17 10:55 Dose: 10 mg Ascorbic Acid (Vitamin C -) 500 mg PO BID [facility] Last Admin: 11/20/17 21:44 Dose: 500 mg Aspirin (Asa -) 81 mg PO DAILY [facility] Last Admin: 11/20/17 16:09 Dose: 81 mg Atorvastatin Calcium (Lipitor -) 80 mg PO HS [facility] Last Admin: 11/20/17 21:44 Dose: 80 mg Bacitracin (Bacitracin -) 1 applic TP DAILY [facility] Last Admin: 11/20/17 11:55 Dose: 1 applic Carvedilol (Coreg -) 12.5 mg PO BID [facility] Last Admin: 11/20/17 21:44 Dose: 12.5 mg Clopidogrel Bisulfate (Plavix -) 75 mg PO DAILY [facility] Last Admin: 11/20/17 16:09 Dose: 75 mg Docusate Sodium (Colace -) 100 mg PO BID [facility] Last Admin: 11/20/17 21:44 Dose: 100 mg Duloxetine HCl (Cymbalta -) 60 mg PO DAILY [facility] Last Admin: 11/20/17 10:55 Dose: 60 mg Ferrous Sulfate (Feosol -) 325 mg PO DAILY [facility] Last Admin: 11/20/17 10:55 Dose: 325 mg Folic Acid (Folic Acid -) 1 mg PO DAILY [facility] Last Admin: 11/20/17 10:55 Dose: 1 mg Gabapentin (Neurontin -) 400 mg PO TID [facility] Last Admin: 11/21/17 06:30 Dose: 400 mg Meropenem 1 gm/ Dextrose 100 mls @ 200 mls/hr IVPB Q8H-IV [facility] Last Admin: 11/21/17 01:19 Dose: 200 mls/hr Vancomycin HCl 1,000 mg/ (Dextrose) 250 mls @ 200 mls/hr IVPB Q24H [facility]; Protocol Last Admin: 11/20/17 20:22 Dose: 200 mls/hr Insulin Aspart (Novolog Vial Sliding Scale -) 1 vial SQ ACHS [facility]; Protocol Last Admin: 11/21/17 06:30 Dose: Not Given Insulin Detemir (Levemir Vial) 22 units SQ HS [facility] Last Admin: 11/20/17 21:45 Dose: Not Given Lisinopril (Prinivil) 20 mg PO DAILY [facility] Last Admin: 11/20/17 10:55 Dose: 20 mg Losartan Potassium (Cozaar -) 50 mg PO DAILY [facility] Last Admin: 11/20/17 10:55 Dose: 50 mg Multivitamins/Minerals/Vitamin C (Tab-A-Vit -) 1 tab PO DAILY [facility] Last Admin: 11/20/17 10:55 Dose: 1 tab Pantoprazole Sodium (Protonix -) 40 mg PO DAILY [facility] Last Admin: 11/20/17 10:55 Dose: 40 mg Sodium Polystyrene Sulfonate (Kayexalate -) 15 gm PO ONCE ONE Stop: 11/21/17 12:01 Zinc Sulfate (Orazinc -) 220 mg PO BID [facility] Last Admin: 11/20/17 21:44 Dose: 220 mg - Objective Vital Signs: Vital Signs Temperature 98.2 F 11/21/17 06:00 Pulse Rate 97 H 11/21/17 06:00 Respiratory Rate 18 11/21/17 06:00 Blood Pressure 137/61 11/21/17 06:00 O2 Sat by Pulse Oximetry (%) 96 11/20/17 21:00 Constitutional: Yes: No Distress, Calm Cardiovascular: Yes: Regular Rate and Rhythm Respiratory: Yes: Regular, CTA Bilaterally Gastrointestinal: Yes: Normal Bowel Sounds, Soft Musculoskeletal: Yes: WNL Extremities: Yes: Erythema, Other Wound/Incision: Yes: Other (wound vac in place) Neurological: Yes: Alert, Oriented Psychiatric: Yes: Alert, Oriented Labs: CBC, BMP 11/21/17 06:20 11/21/17 06:20 INR, PTT INR 1.07 (0.83-1.09) 11/17/17 19:53 Assessment/Plan - Problems (1) Diabetic foot ulcer Code(s): E11.621 - TYPE 2 DIABETES MELLITUS WITH FOOT ULCER; L97.509 - NON- PRESSURE CHRONIC ULCER OTH PRT UNSP FOOT W UNSP SEVERITY (2) Osteomyelitis Code(s): M86.9 - OSTEOMYELITIS, UNSPECIFIED Qualifiers: Osteomyelitis type: unspecified type Osteomyelitis location: foot Laterality: right Qualified Code(s): M86.9 - Osteomyelitis, unspecified (3) Anemia Code(s): D64.9 - ANEMIA, UNSPECIFIED (4) Depression Code(s): F32.9 - MAJOR DEPRESSIVE DISORDER, SINGLE EPISODE, UNSPECIFIED Qualifiers: Depression Type: other depression Qualified Code(s): F32.89 - Other specified depressive episodes (5) Diabetes mellitus Code(s): E11.9 - TYPE 2 DIABETES MELLITUS WITHOUT COMPLICATIONS Qualifiers: Diabetes mellitus type: type 2 Diabetes mellitus detention insulin use: without detention use Diabetes mellitus complication status: with circulatory complication Diabetes mellitus complication detail: with peripheral angiopathy with gangrene Qualified Code(s): E11.52 - Type 2 diabetes mellitus with diabetic peripheral angiopathy with gangrene (6) S/P BKA (below knee amputation) unilateral Code(s): Z89.519 - ACQUIRED ABSENCE OF UNSPECIFIED LEG BELOW KNEE (7) S/P vascular bypass Code(s): Z95.828 - PRESENCE OF OTHER VASCULAR IMPLANTS AND GRAFTS (8) HTN (hypertension) Code(s): I10 - ESSENTIAL (PRIMARY) HYPERTENSION Qualifiers: Hypertension type: essential hypertension Qualified Code(s): I10 - Essential (primary) hypertension (9) Hypercholesterolemia Code(s): E78.00 - PURE HYPERCHOLESTEROLEMIA, UNSPECIFIED (10) Femoral-popliteal artery atherosclerosis Code(s): I70.209 - UNSP ATHSCL [place] ARTERIES OF EXTREMITIES, UNSP EXTREMITY Assessment/Plan 52 y.o. female with PMH of Uncontrolled DM, PAD s/p Rt fem-tibial bypass, s/p Lt BKA, HTN, HLD, depression and chronic Rt heel ulcer s/p debridement on and course of antibiotics re-admitted with malodorous drainage from Rt heel wound (described as 5X5 cm, with exposed bone) for past few days. Pt currently with wound vac on, +tenderness, elevated ESR. Infected Diabetic Rt heel ulcer/OM Uncontrolled DM PAD s/p RLE bypass s/p Lt BKA HTN HLD plan continue abx for debridement wound care cx reports rest as per the team
[2017-11-21] MEDS ORDERED: SODIUM POLYSTYRENE SULFONATE 15 GM/60 ML BOTTLE PO ONE (12:00)
[2017-11-21] MEDS: DOCUSATE SODIUM 100 MG CAPSULE (FP) PO SCH ×3 (12:01→21:56)
[2017-11-21] MEDS: FOLIC ACID 1 MG TABLET (FP) PO SCH (12:03)
[2017-11-21] MEDS: FERROUS SO4 325 MG TABLET (FP) PO SCH (12:04)
[2017-11-21] MEDS: DULoxetine HCL 30 MG CAPSULE.DR (FP) PO SCH (12:05)
[2017-11-21] MEDS: ZINC SULFATE 220 MG CAPSULE (FP) PO SCH ×2 (12:09→21:47)
[2017-11-21] MEDS: MULTIVITAMINS (DAILY MVI) TABLET (FP) PO SCH (12:11)
[2017-11-21] MEDS: PANTOPRAZOLE 40 MG TABLET (FP) PO SCH (12:11)
[2017-11-21] MEDS: amLODIPine BESYLATE 10 MG TABLET (FP) PO SCH (13:02)
[2017-11-21] MEDS: ASCORBIC ACID 500 MG TABLET (FP) PO SCH ×2 (13:04→21:46)
[2017-11-21] MEDS: LOSARTAN POTASSIUM 50 MG TABLET (FP) PO SCH (13:10)
[2017-11-21] MEDS: LISINOPRIL 20 MG TABLET (FP) PO SCH (13:13)
[2017-11-21] MEDS: CARVEDILOL 12.5 MG TABLET (FP) PO SCH ×2 (13:14→21:47)
[2017-11-21] MEDS ORDERED: LIDOCAINE HCL 2% (20ML MULTI-DOSE VIAL) NR ONE (16:32)
[2017-11-21] MEDS ORDERED: ONDANSETRON 4 MG/2 ML VIAL IVPUSH PRN ×2 (16:36→17:52)
[2017-11-21] MEDS ORDERED: PROMETHAZINE HCL 25 MG/1 ML VIAL IVPB PRN ×2 (16:36→17:52)
[2017-11-21] MEDS ORDERED: MIDAZOLAM HCL 2 MG/2 ML SINGLE DOSE VIAL ONE (16:41)
[2017-11-21] MEDS ORDERED: LACTATED RINGERS SOLUTION 1,000 ML IV SCH ×2 (16:45→17:52)
[2017-11-21] MEDS ORDERED: PROPOFOL 20 ML ONE (16:53)
[2017-11-21] MEDS ORDERED: LIDOCAINE HCL/PF 2% SDV 5ML VIAL ONE (16:54)
[2017-11-21] MEDS ORDERED: LIDOCAINE HCL 1%, 10 MG/ML (20ML VIAL) PNB ONE (17:12)
--- NOTE | 2017-11-21 17:26 | OP ---
Operative Note - Note: Operative Date: 11/21/17 Pre-Operative Diagnosis: Osteomyelitis right calcaneus Operation: Debridement right heel wound, skin and bone Findings: Non-viable tissue at edge of exposed calcaneus. Bone with good bleeding. Post-Operative Diagnosis: Same as Pre-op Surgeon: Carlos Hare Anesthesiologist/ASSEMBLER [employer]: Brigido Velasco Anesthesia: General Specimens Removed: Non-viable tissue. Estimated Blood Loss (mls): 50
[2017-11-21] MEDS: KETOROLAC TROMETHAMINE 30 MG/1 ML VIAL IVPUSH ONE ×2 (17:35→18:37)
[2017-11-21] MEDS ORDERED: KETOROLAC TROMETHAMINE 30 MG/1 ML VIAL ONE (17:41)
[2017-11-21] MEDS ORDERED: ACETAMINOPHEN 325 MG TABLET (FP) PO PRN (17:52)
[2017-11-21] MEDS: VANCOMYCIN 1,000 MG in DEXTROSE 5%-WATER - 250 ML IVPB SCH (21:26)
[2017-11-21] MEDS: ATORVASTATIN CA 80 MG TABLET (FP) PO SCH (21:46)
[2017-11-21] MEDS ORDERED: INSULIN (LEVEMIR) 100 UNITS/ML UNITS SQ SCH (22:00)
[2017-11-22] MEDS: MEROPENEM 1 GM in DEXTROSE 5%-WATER 100 ML IVPB SCH ×3 (02:58→17:47)
[2017-11-22] MEDS: GABAPENTIN 400 MG CAPSULE (FP) PO SCH ×3 (06:43→21:34)
[2017-11-22] MEDS: INSULIN SLIDING SCALE (NOVOLOG) 1 VIAL SQ SCH ×4 (06:44→21:35)
--- NOTE | 2017-11-22 08:31 | PN ---
Progress Note (short form) - Note Progress Note: Anesthesia Post op Pt seen and examined S:Alert and awake O: Vital Signs Temperature 98.7 F 11/22/17 07:00 Pulse Rate 99 H 11/22/17 07:00 Respiratory Rate 20 11/22/17 07:00 Blood Pressure 153/75 11/22/17 07:00 O2 Sat by Pulse Oximetry (%) 97 11/21/17 21:00 CBC, BMP 11/21/17 06:20 11/21/17 06:20 A/P Current Active Problems Diabetic foot ulcer (Acute) Osteomyelitis (Acute) s/p debridement right heel ulcer Doing well post op Continue current care Alin Zapata MD
--- NOTE | 2017-11-22 08:50 | PN ---
Progress Note (short form) - Note Progress Note: POD 1 No bleeding Will replace VAC today. Plan for Integra graft when bone has started to granulate. Continue IV antibiotics.
--- NOTE | 2017-11-22 09:45 | OP ---
DATE OF OPERATION: 11/21/2017 SURGEON: Carlos Willoughby MD PROCEDURE: Debridement of right heel wound including skin, subcutaneous tissues, and bone. PREOPERATIVE DIAGNOSIS: Open wound of right heel with osteomyelitis of the calcaneus. POSTOPERATIVE DIAGNOSIS: Open wound of right heel with osteomyelitis of the calcaneus. ANESTHESIA: General. ANESTHESIOLOGIST: Brigido Velasco MD OPERATIVE FINDINGS: There was nonviable tissue and callus at the edge of the wound extending down into the calcaneus. Following debridement, the calcaneal tissues appeared viable with good bleeding. OPERATIVE PROCEDURE: Following routine patient identification with side and site verification, intravenous sedation was established and deepened to general anesthesia during the procedure. The right foot was prepped with Betadine solution. Time-out was performed. The edges of the wound were debrided sharply with scalpel and rongeur to remove callus and overhanging skin. The subcutaneous tissues were then debrided with scalpel and curette to remove nonviable tissue. The bone was debrided with rongeur and curette down to firm cancellous bone. There was good bleeding from all of the tissues, which were controlled with cautery. The wound was irrigated with saline and then packed op with moist gauze, covered with Xeroform, dry gauze, ABD pad, and Kerlix, and the patient was taken to the recovery room in stable condition. CARLOS WILLOUGHBY M.D. RUEL/[id number]
[2017-11-22] MEDS ORDERED: INSULIN (NOVOLOG) ASPART 100 UNITS/ML 10ML VIAL ONE (11:14)
[2017-11-22] MEDS: ASCORBIC ACID 500 MG TABLET (FP) PO SCH ×2 (11:20→21:34)
[2017-11-22] MEDS: FERROUS SO4 325 MG TABLET (FP) PO SCH (11:20)
[2017-11-22] MEDS: DULoxetine HCL 30 MG CAPSULE.DR (FP) PO SCH (11:20)
[2017-11-22] MEDS: PANTOPRAZOLE 40 MG TABLET (FP) PO SCH (11:20)
[2017-11-22] MEDS: CARVEDILOL 12.5 MG TABLET (FP) PO SCH ×2 (11:21→21:34)
[2017-11-22] MEDS: LISINOPRIL 20 MG TABLET (FP) PO SCH (11:21)
[2017-11-22] MEDS: amLODIPine BESYLATE 10 MG TABLET (FP) PO SCH (11:21)
[2017-11-22] MEDS: CLOPIDOGREL BISULFATE 75 MG TABLET (FP) PO SCH (11:21)
[2017-11-22] MEDS: ZINC SULFATE 220 MG CAPSULE (FP) PO SCH ×2 (11:21→21:34)
[2017-11-22] MEDS: FOLIC ACID 1 MG TABLET (FP) PO SCH (11:21)
[2017-11-22] MEDS: MULTIVITAMINS (DAILY MVI) TABLET (FP) PO SCH (11:22)
[2017-11-22] MEDS: ASPIRIN 81 MG CHEWABLE TABLETS PO SCH (11:22)
[2017-11-22] MEDS: BACITRACIN 15 GM TUBE TOPICAL OINTMENT TP SCH (11:28)
[2017-11-22] MEDS: DOCUSATE SODIUM 100 MG CAPSULE (FP) PO SCH ×2 (11:28→21:34)
[2017-11-22] MEDS ORDERED: morphine SULFATE 4 MG/ML VIAL ONE (11:40)
[2017-11-22] MEDS ORDERED: MORPHINE SULFATE 2 MG/ML VIAL IVPUSH ONE (11:41)
[2017-11-22] MEDS ORDERED: SILVER NITRATE 75% APPLIC STCK 1 PKT EACH TP ONE (11:42)
--- NOTE | 2017-11-22 12:17 | PN ---
Progress Note (short form) - Note Progress Note: Asked by Dr Hare to place wound vac over patient's right heel. POD #1 right heel debridement, patient seen and examined at bedside c/o right heel pain with manipulation of dressing and wound edges. Patient denies any new symptoms. Vital Signs Temp 98 F 11/22/17 10:25 Pulse 92 H 11/22/17 10:25 Resp 20 11/22/17 10:25 BP 132/88 11/22/17 10:25 Pulse Ox 97 11/21/17 21:00 Intake & Output 11/21/1718 18 23:59 11:59 23:59 Intake Total 750 485 Balance 750 485 Intake: IV 300 IVPB 250 100 Oral 200 385 Other: Voiding Method Bedpan Bedpan # Unmeasured Voids Void 1 2 Bowel Movement Yes Yes # Bowel Movements 1 1 CBC, BMP 11/21/17 06:20 11/21/17 06:20 PE: A&Ox3,mild distress 2/2 pain, (patient given 3mg of morphine for procedure) right Leg with healing scar, no edema, compartments warm and well perfused. Right heel with large open wound down to bone over medial aspect, with bleeding boarders, pressure held at wound edge and hemastasis achieved. Wound vac applied with white sponge over bone and black sponge to fill wound, vac applied and set at 75, vac functioning well and patient comfortable. Problem List - Problems (1) Open wound of heel Assessment/Plan: POD #1 right heel debridement with wound vac in place. 1) continue vac changes T, TH, S 2) ABX per ID 3) pain mngt 4) vascular to follow Code(s): S91.309A - UNSPECIFIED OPEN WOUND, UNSPECIFIED FOOT, INITIAL ENCOUNTER
--- NOTE | 2017-11-22 13:14 | PN ---
Progress Note (short form) - Note Progress Note: - Note Progress Note: pt seen/ examined s/p debridement of heel ulcer on wound vac had pain while doing dressing change Vital Signs - 24 hr 11/21/17 11/21/17 11/21/17 18:05 19:00 21:00 Temperature 98 F 98.6 F Pulse Rate 87 89 Respiratory 16 18 20 Rate Blood Pressure 145/72 113/68 O2 Sat by Pulse 100 97 Oximetry (%) 11/21/17 11/22/17 11/22/17 23:00 07:00 09:00 Temperature 98.2 F 98.7 F Pulse Rate 93 H 99 H Respiratory 20 20 20 Rate Blood Pressure 110/66 153/75 O2 Sat by Pulse 100 Oximetry (%) 11/22/17 11/22/17 11/22/17 10:25 14:12 17:55 Temperature 98 F 98.3 F 97.9 F Pulse Rate 92 H 90 97 H Respiratory 20 20 18 Rate Blood Pressure 132/88 118/63 123/74 O2 Sat by Pulse Oximetry (%) Current Medications Generic Name Dose Route Start Last Admin Trade Name Freq PRN Reason Stop Dose Admin Acetaminophen 650 mg 11/21/17 17:52 11/22/17 06:43 Tylenol - PO 650 mg Q6H PRN Administration PAIN LEVEL 1-5 Amlodipine Besylate 10 mg 11/22/17 10:00 11/22/17 11:21 Norvasc - PO 10 mg DAILY JESSICA Administration Ascorbic Acid 500 mg 11/21/17 22:00 11/22/17 11:20 Vitamin C - PO 500 mg BID JESSICA Administration Aspirin 81 mg 11/22/17 10:00 11/22/17 11:22 Asa - PO 81 mg DAILY JESSICA Administration Atorvastatin Calcium 80 mg 11/21/17 22:00 11/21/17 21:46 Lipitor - PO 80 mg HS JESSICA Administration Bacitracin 1 applic 11/22/17 10:00 11/22/17 11:28 Bacitracin - TP 1 applic DAILY JESSICA Administration Carvedilol 12.5 mg 11/21/17 22:00 11/22/17 11:21 Coreg - PO 12.5 mg BID JESSICA Administration Clopidogrel Bisulfate 75 mg 11/22/17 10:00 11/22/17 11:21 Plavix - PO 75 mg DAILY JESSICA Administration Docusate Sodium 100 mg 11/21/17 22:00 11/22/17 11:28 Colace - PO Not Given BID [facility] Duloxetine HCl 60 mg 11/22/17 10:00 11/22/17 11:20 Cymbalta - PO 60 mg DAILY JESSICA Administration Ferrous Sulfate 325 mg 11/22/17 10:00 11/22/17 11:20 Feosol - PO 325 mg DAILY JESSICA Administration Folic Acid 1 mg 11/22/17 10:00 11/22/17 11:21 Folic Acid - PO 1 mg DAILY JESSICA Administration Gabapentin 400 mg 11/21/17 22:00 11/22/17 14:15 Neurontin - PO 400 mg TID JESSICA Administration Meropenem 1 gm/ Dextrose 100 mls @ 200 mls/hr 11/21/17 18:00 11/22/17 17:47 IVPB 200 mls/hr Q8H-IV JESSICA Administration Vancomycin HCl 1,000 mg/ 250 mls @ 200 mls/hr 11/21/17 20:00 11/21/17 21:26 Dextrose IVPB 200 mls/hr Q24H EJSSICA Administration Protocol Insulin Aspart 1 vial 11/21/17 22:00 11/22/17 16:31 Novolog Vial Sliding Scale - SQ 4 units ACHS [facility] Administration Protocol Insulin Detemir 22 units 11/21/17 22:00 11/21/17 21:47 Levemir Vial SQ 22 units HS JESSICA Administration Lisinopril 20 mg 11/22/17 10:00 11/22/17 11:21 Prinivil PO 20 mg DAILY JESSICA Administration Multivitamins/Minerals/Vitamin C 1 tab 11/22/17 10:00 11/22/17 11:22 Tab-A-Vit - PO 1 tab DAILY [facility] Administration Ondansetron HCl 4 mg 11/21/17 17:52 Zofran Injection IVPUSH Q6H PRN NAUSEA AND/OR VOMITING Oxycodone HCl 5 mg 11/22/17 11:55 Roxicodone - PO Q6H PRN PAIN LEVEL 1-5 Oxycodone HCl 10 mg 11/22/17 11:55 Roxicodone - PO Q6H PRN PAIN LEVEL 6-10 Pantoprazole Sodium 40 mg 11/22/17 10:00 11/22/17 11:20 Protonix - PO 40 mg DAILY JESSICA Administration Promethazine HCl 12.5 mg 11/21/17 17:52 Phenergan Injection - IVPB Q6H PRN NAUSEA-FOR RESCUE AFTER 15 MIN Zinc Sulfate 220 mg 11/21/17 22:00 11/22/17 11:21 Orazinc - PO 220 mg BID JESSICA Administration Laboratory Results - last 24 hr 11/21/17 11/21/17 11/22/17 18:35 21:46 06:42 POC Glucometer 116 292 162 11/22/17 11/22/17 11:05 16:30 POC Glucometer 171 202 Physical Constitutional: Yes: No Distress, Comfortable. Eyes: Yes: Conjunctiva Clear Neck: Yes: Supple Cardiovascular: Yes: Regular Rate and Rhythm Respiratory: Yes: Diminished Gastrointestinal: Yes: Soft Edema: No Wound/Incision: Yes: Other (Right heel chronic wound-) s/p left BKA ,foot warm Psychiatric: Yes: Alert Assessment/Plan In summary 52 y.o. female with PMH of Uncontrolled DM, PAD s/p Rt fem-tibial bypass, s/p Lt BKA, HTN, HLD, depression and chronic Rt heel ulcer s/p debridement on and course of antibiotics re-admitted with malodorous drainage from Rt heel wound --with exposed bone) continue abx wound vac placed monitor bp/bgm- increase Levemir for better glucose control pain control monitor cbc-- stable Problem List - Problems (1) Diabetic foot ulcer Code(s): E11.621 - TYPE 2 DIABETES MELLITUS WITH FOOT ULCER; L97.509 - NON- PRESSURE CHRONIC ULCER OTH PRT UNSP FOOT W UNSP SEVERITY (2) Anemia Code(s): D64.9 - ANEMIA, UNSPECIFIED (3) S/P BKA (below knee amputation) unilateral Code(s): Z89.519 - ACQUIRED ABSENCE OF UNSPECIFIED LEG BELOW KNEE
[2017-11-22] MEDS ORDERED: morphine SULFATE 4 MG/ML VIAL IVPUSH ONE (13:30)
[2017-11-22] MEDS: VANCOMYCIN 1,000 MG in DEXTROSE 5%-WATER - 250 ML IVPB SCH (20:31)
[2017-11-22] MEDS: INSULIN (LEVEMIR) 100 UNITS/ML UNITS SQ SCH (21:33)
[2017-11-22] MEDS: ATORVASTATIN CA 80 MG TABLET (FP) PO SCH (21:34)
[2017-11-23] MEDS ORDERED: PT OWN MED DRAWER 7, Y5N ONE ×3 (02:01→19:48)
[2017-11-23] MEDS: MEROPENEM 1 GM in DEXTROSE 5%-WATER 100 ML IVPB SCH ×3 (02:12→21:15)
[2017-11-23] MEDS: GABAPENTIN 400 MG CAPSULE (FP) PO SCH ×3 (06:37→22:07)
[2017-11-23] MEDS: INSULIN SLIDING SCALE (NOVOLOG) 1 VIAL SQ SCH ×4 (06:37→22:08)
[2017-11-23 06:56] LABS: HEMATOCRIT 22.5 % (32.4-45.2); HEMOGLOBIN 7.5 GM/dL (10.7-15.3); MCH 29.6 pg (25.7-33.7); MCHC 33.5 g/dl (32.0-36.0); MEAN CELL VOLUME 88.2 fl (80-96); MEAN PLT VOLUME 6.9 fl (7.5-11.1); PLATELET COUNT 410 K/MM3 (134-434); RBC 2.55 M/mm3 (3.60-5.2); RDW 15.4 % (11.6-15.6); WHITE BLOOD COUNT 6.8 K/mm3 (4.0-10.0)
[2017-11-23 07:36] LABS: ANION GAP 3 MMOL/L (8-16); BLOOD UREA NITROGEN 40 mg/dL (7-18); CALCIUM 8.7 mg/dL (8.5-10.1); CHLORIDE 105 mmol/L (98-107); CO2 30 mmol/L (21-32); CREATININE 0.8 mg/dL (0.55-1.3); GLUCOSE,RANDOM 66 mg/dL (74-106); POTASSIUM 5.6 mmol/L (3.5-5.1); SODIUM 138 mmol/L (136-145)
[2017-11-23] MEDS: BACITRACIN 15 GM TUBE TOPICAL OINTMENT TP SCH (09:37)
[2017-11-23] MEDS: ASPIRIN 81 MG CHEWABLE TABLETS PO SCH (09:37)
[2017-11-23] MEDS: CARVEDILOL 12.5 MG TABLET (FP) PO SCH ×2 (09:38→22:07)
[2017-11-23] MEDS: DOCUSATE SODIUM 100 MG CAPSULE (FP) PO SCH ×2 (09:38→21:28)
[2017-11-23] MEDS: DULoxetine HCL 30 MG CAPSULE.DR (FP) PO SCH (09:39)
[2017-11-23] MEDS: ZINC SULFATE 220 MG CAPSULE (FP) PO SCH ×2 (09:40→22:07)
[2017-11-23] MEDS: FOLIC ACID 1 MG TABLET (FP) PO SCH (09:40)
[2017-11-23] MEDS: FERROUS SO4 325 MG TABLET (FP) PO SCH (09:40)
[2017-11-23] MEDS: amLODIPine BESYLATE 10 MG TABLET (FP) PO SCH (09:40)
[2017-11-23] MEDS: LISINOPRIL 20 MG TABLET (FP) PO SCH (09:41)
[2017-11-23] MEDS: CLOPIDOGREL BISULFATE 75 MG TABLET (FP) PO SCH (09:41)
[2017-11-23] MEDS: PANTOPRAZOLE 40 MG TABLET (FP) PO SCH (09:42)
[2017-11-23] MEDS: oxyCODONE HCL 5 MG TABLET PO PRN ×3 (09:42→22:07)
[2017-11-23] MEDS: ASCORBIC ACID 500 MG TABLET (FP) PO SCH ×2 (09:43→22:07)
[2017-11-23] MEDS: MULTIVITAMINS (DAILY MVI) TABLET (FP) PO SCH (09:43)
[2017-11-23 10:44] VITALS: BMI 20.9
--- NOTE | 2017-11-23 10:55 | PN ---
Progress Note, Physician History of Present Illness: stable no issues - Current Medication List Current Medications: Active Medications Acetaminophen (Tylenol -) 650 mg PO Q6H PRN PRN Reason: PAIN LEVEL 1-5 Last Admin: 11/22/17 06:43 Dose: 650 mg Amlodipine Besylate (Norvasc -) 10 mg PO DAILY [facility] Last Admin: 11/23/17 09:40 Dose: 10 mg Ascorbic Acid (Vitamin C -) 500 mg PO BID [facility] Last Admin: 11/23/17 09:43 Dose: 500 mg Aspirin (Asa -) 81 mg PO DAILY [facility] Last Admin: 11/23/17 09:37 Dose: 81 mg Atorvastatin Calcium (Lipitor -) 80 mg PO HS [facility] Last Admin: 11/22/17 21:34 Dose: 80 mg Bacitracin (Bacitracin -) 1 applic TP DAILY [facility] Last Admin: 11/23/17 09:37 Dose: 1 applic Carvedilol (Coreg -) 12.5 mg PO BID [facility] Last Admin: 11/23/17 09:38 Dose: 12.5 mg Clopidogrel Bisulfate (Plavix -) 75 mg PO DAILY [facility] Last Admin: 11/23/17 09:41 Dose: 75 mg Docusate Sodium (Colace -) 100 mg PO BID [facility] Last Admin: 11/23/17 09:38 Dose: Not Given Duloxetine HCl (Cymbalta -) 60 mg PO DAILY [facility] Last Admin: 11/23/17 09:39 Dose: 60 mg Ferrous Sulfate (Feosol -) 325 mg PO DAILY [facility] Last Admin: 11/23/17 09:40 Dose: 325 mg Folic Acid (Folic Acid -) 1 mg PO DAILY [facility] Last Admin: 11/23/17 09:40 Dose: 1 mg Gabapentin (Neurontin -) 400 mg PO TID [facility] Last Admin: 11/23/17 06:37 Dose: 400 mg Meropenem 1 gm/ Dextrose 100 mls @ 200 mls/hr IVPB Q8H-IV [facility] Last Admin: 11/23/17 02:12 Dose: 200 mls/hr Insulin Aspart (Novolog Vial Sliding Scale -) 1 vial SQ [facility]; Protocol Last Admin: 11/23/17 06:37 Dose: Not Given Insulin Detemir (Levemir Vial) 24 units SQ [facility] Last Admin: 11/22/17 21:33 Dose: 24 units Lisinopril (Prinivil) 20 mg PO DAILY [facility] Last Admin: 11/23/17 09:41 Dose: 20 mg Multivitamins/Minerals/Vitamin C (Tab-A-Vit -) 1 tab PO DAILY [facility] Last Admin: 11/23/17 09:43 Dose: 1 tab Ondansetron HCl (Zofran Injection) 4 mg IVPUSH Q6H PRN PRN Reason: NAUSEA AND/OR VOMITING Oxycodone HCl (Roxicodone -) 5 mg PO Q6H PRN PRN Reason: PAIN LEVEL 1-5 Last Admin: 11/23/17 09:42 Dose: 5 mg Oxycodone HCl (Roxicodone -) 10 mg PO Q6H PRN PRN Reason: PAIN LEVEL 6-10 Pantoprazole Sodium (Protonix -) 40 mg PO DAILY [facility] Last Admin: 11/23/17 09:42 Dose: 40 mg Promethazine HCl (Phenergan Injection -) 12.5 mg IVPB Q6H PRN PRN Reason: NAUSEA-FOR RESCUE AFTER 15 MIN Zinc Sulfate (Orazinc -) 220 mg PO BID [facility] Last Admin: 11/23/17 09:40 Dose: 220 mg - Objective Vital Signs: Vital Signs Temperature 98.8 F 11/23/17 06:00 Pulse Rate 99 H 11/23/17 06:00 Respiratory Rate 18 11/23/17 06:00 Blood Pressure 135/80 11/23/17 06:00 O2 Sat by Pulse Oximetry (%) 97 11/22/17 21:00 Constitutional: Yes: No Distress, Calm Cardiovascular: Yes: Regular Rate and Rhythm Respiratory: Yes: Regular, CTA Bilaterally Gastrointestinal: Yes: Normal Bowel Sounds, Soft Musculoskeletal: Yes: WNL Extremities: Yes: Other Wound/Incision: Yes: Other (wound vac in lace) Neurological: Yes: Alert, Oriented Labs: CBC, BMP 11/23/17 06:30 11/23/17 06:30 INR, PTT INR 1.07 (0.83-1.09) 11/17/17 19:53 Assessment/Plan - Problems (1) Diabetic foot ulcer Code(s): E11.621 - TYPE 2 DIABETES MELLITUS WITH FOOT ULCER; L97.509 - NON- PRESSURE CHRONIC ULCER OTH PRT UNSP FOOT W UNSP SEVERITY (2) Osteomyelitis Code(s): M86.9 - OSTEOMYELITIS, UNSPECIFIED Qualifiers: Osteomyelitis type: unspecified type Osteomyelitis location: foot Laterality: right Qualified Code(s): M86.9 - Osteomyelitis, unspecified (3) Anemia Code(s): D64.9 - ANEMIA, UNSPECIFIED (4) Depression Code(s): F32.9 - MAJOR DEPRESSIVE DISORDER, SINGLE EPISODE, UNSPECIFIED Qualifiers: Depression Type: other depression Qualified Code(s): F32.89 - Other specified depressive episodes (5) Diabetes mellitus Code(s): E11.9 - TYPE 2 DIABETES MELLITUS WITHOUT COMPLICATIONS Qualifiers: Diabetes mellitus type: type 2 Diabetes mellitus long-term insulin use: without parts counterman use Diabetes mellitus complication status: with circulatory complication Diabetes mellitus complication detail: with peripheral angiopathy with gangrene Qualified Code(s): E11.52 - Type 2 diabetes mellitus with diabetic peripheral angiopathy with gangrene (6) S/P BKA (below knee amputation) unilateral Code(s): Z89.519 - ACQUIRED ABSENCE OF UNSPECIFIED LEG BELOW KNEE (7) S/P vascular bypass Code(s): Z95.828 - PRESENCE OF OTHER VASCULAR IMPLANTS AND GRAFTS (8) HTN (hypertension) Code(s): I10 - ESSENTIAL (PRIMARY) HYPERTENSION Qualifiers: Hypertension type: essential hypertension Qualified Code(s): I10 - Essential (primary) hypertension (9) Hypercholesterolemia Code(s): E78.00 - PURE HYPERCHOLESTEROLEMIA, UNSPECIFIED (10) Femoral-popliteal artery atherosclerosis Code(s): I70.209 - UNSP ATHSCL [place] ARTERIES OF EXTREMITIES, UNSP EXTREMITY Assessment/Plan 52 y.o. female with PMH of Uncontrolled DM, PAD s/p Rt fem-tibial bypass, s/p Lt BKA, HTN, HLD, depression and chronic Rt heel ulcer s/p debridement on and course of antibiotics re-admitted with malodorous drainage from Rt heel wound (described as 5X5 cm, with exposed bone) for past few days. Pt currently with wound vac on, +tenderness, elevated ESR. Infected Diabetic Rt heel ulcer/OM Uncontrolled DM PAD s/p RLE bypass s/p Lt BKA HTN HLD plan continue abx wound care will stop vanco rest as per the team
--- NOTE | 2017-11-23 11:33 | PN ---
Progress Note (short form) - Note Progress Note: - Note Progress Note: pt seen/ examined s/p debridement of heel ulcer on wound vac no blood in stools feels well Vital Signs - 24 hr 11/22/17 11/22/17 11/22/17 14:12 17:55 21:00 Temperature 98.3 F 97.9 F Pulse Rate 90 97 H 96 H Respiratory 20 18 18 Rate Blood Pressure 118/63 123/74 143/67 O2 Sat by Pulse 97 Oximetry (%) 11/23/17 11/23/17 01:00 06:00 Temperature 98.3 F 98.8 F Pulse Rate 95 H 99 H Respiratory 18 18 Rate Blood Pressure 131/70 135/80 O2 Sat by Pulse Oximetry (%) Current Medications Generic Name Dose Route Start Last Admin Trade Name Freq PRN Reason Stop Dose Admin Acetaminophen 650 mg 11/21/17 17:52 11/22/17 06:43 Tylenol - PO 650 mg Q6H PRN Administration PAIN LEVEL 1-5 Amlodipine Besylate 10 mg 11/22/17 10:00 11/23/17 09:40 Norvasc - PO 10 mg DAILY JESSICA Administration Ascorbic Acid 500 mg 11/21/17 22:00 11/23/17 09:43 Vitamin C - PO 500 mg BID JESSICA Administration Aspirin 81 mg 11/22/17 10:00 11/23/17 09:37 Asa - PO 81 mg DAILY JESSICA Administration Atorvastatin Calcium 80 mg 11/21/17 22:00 11/22/17 21:34 Lipitor - PO 80 mg HS JESSICA Administration Bacitracin 1 applic 11/22/17 10:00 11/23/17 09:37 Bacitracin - TP 1 applic DAILY JESSICA Administration Carvedilol 12.5 mg 11/21/17 22:00 11/23/17 09:38 Coreg - PO 12.5 mg BID JESSICA Administration Clopidogrel Bisulfate 75 mg 11/22/17 10:00 11/23/17 09:41 Plavix - PO 75 mg DAILY JESSICA Administration Docusate Sodium 100 mg 11/21/17 22:00 11/23/17 09:38 Colace - PO Not Given BID JESSICA Duloxetine HCl 60 mg 11/22/17 10:00 11/23/17 09:39 Cymbalta - PO 60 mg DAILY JESSICA Administration Ferrous Sulfate 325 mg 11/22/17 10:00 11/23/17 09:40 Feosol - PO 325 mg DAILY JESSICA Administration Folic Acid 1 mg 11/22/17 10:00 11/23/17 09:40 Folic Acid - PO 1 mg DAILY JESSICA Administration Gabapentin 400 mg 11/21/17 22:00 11/23/17 06:37 Neurontin - PO 400 mg TID JESSICA Administration Meropenem 1 gm/ Dextrose 100 mls @ 200 mls/hr 11/21/17 18:00 11/23/17 11:27 IVPB 200 mls/hr Q8H-IV JESSICA Administration Insulin Aspart 1 vial 11/21/17 22:00 11/23/17 11:34 Novolog Vial Sliding Scale - SQ 4 units ACHS JESSICA Administration Protocol Insulin Detemir 24 units 11/22/17 18:03 11/22/17 21:33 Levemir Vial SQ 24 units HS JESSICA Administration Lisinopril 20 mg 11/22/17 10:00 11/23/17 09:41 Prinivil PO 20 mg DAILY JESSICA Administration Multivitamins/Minerals/Vitamin C 1 tab 11/22/17 10:00 11/23/17 09:43 Tab-A-Vit - PO 1 tab DAILY JESSICA Administration Ondansetron HCl 4 mg 11/21/17 17:52 Zofran Injection IVPUSH Q6H PRN NAUSEA AND/OR VOMITING Oxycodone HCl 5 mg 11/22/17 11:55 11/23/17 09:42 Roxicodone - PO 5 mg Q6H PRN Administration PAIN LEVEL 1-5 Oxycodone HCl 10 mg 11/22/17 11:55 11/23/17 11:39 Roxicodone - PO 10 mg Q6H PRN Administration PAIN LEVEL 6-10 Pantoprazole Sodium 40 mg 11/22/17 10:00 11/23/17 09:42 Protonix - PO 40 mg DAILY JESSICA Administration Promethazine HCl 12.5 mg 11/21/17 17:52 Phenergan Injection - IVPB Q6H PRN NAUSEA-FOR RESCUE AFTER 15 MIN Sodium Polystyrene Sulfonate 30 gm 11/23/17 12:27 Kayexalate - PO 11/23/17 12:28 ONCE ONE Zinc Sulfate 220 mg 11/21/17 22:00 11/23/17 09:40 Orazinc - PO 220 mg BID JESSICA Administration Laboratory Results - last 24 hr 11/22/17 11/22/17 11/23/17 16:30 21:09 05:10 WBC RBC Hgb Hct MCV MCH MCHC RDW Plt Count MPV Sodium Potassium Chloride Carbon Dioxide Anion Gap BUN Creatinine Creat Clearance w eGFR POC Glucometer 202 186 Random Glucose Calcium Stool Occult Blood Negative 11/23/17 11/23/17 11/23/17 05:39 06:30 06:30 WBC 6.8 RBC 2.55 L Hgb 7.5 L Hct 22.5 L MCV 88.2 MCH 29.6 MCHC 33.5 RDW 15.4 Plt Count 410 MPV 6.9 L Sodium 138 Potassium 5.6 H Chloride 105 Carbon Dioxide 30 Anion Gap 3 L BUN 40 H Creatinine 0.8 Creat Clearance w eGFR > 60 POC Glucometer 84 Random Glucose 66 L Calcium 8.7 Stool Occult Blood 11/23/17 11:32 WBC RBC Hgb Hct MCV MCH MCHC RDW Plt Count MPV Sodium Potassium Chloride Carbon Dioxide Anion Gap BUN Creatinine Creat Clearance w eGFR POC Glucometer 215 Random Glucose Calcium Stool Occult Blood Physical Constitutional: Yes: No Distress, Comfortable. Eyes: Yes: Conjunctiva Clear Neck: Yes: Supple Cardiovascular: Yes: Regular Rate and Rhythm Respiratory: Yes: Diminished Gastrointestinal: Yes: Soft Edema: No Wound/Incision: Yes: Other (Right heel chronic wound-) s/p left BKA ,foot warm Psychiatric: Yes: Alert Assessment/Plan In summary 52 y.o. female with PMH of Uncontrolled DM, PAD s/p Rt fem-tibial bypass, s/p Lt BKA, HTN, HLD, depression and chronic Rt heel ulcer s/p debridement on and course of antibiotics re-admitted with malodorous drainage from Rt heel wound --with exposed bone) continue abx wound vac placed monitor bp/bgm- increased Levemir for better glucose control pain control monitor cbc-- PRBC today - 1 unit Kayexalate for hyperkalemia Problem List - Problems (1) Diabetic foot ulcer Code(s): E11.621 - TYPE 2 DIABETES MELLITUS WITH FOOT ULCER; L97.509 - NON- PRESSURE CHRONIC ULCER OTH PRT UNSP FOOT W UNSP SEVERITY (2) Anemia Code(s): D64.9 - ANEMIA, UNSPECIFIED (3) S/P BKA (below knee amputation) unilateral Code(s): Z89.519 - ACQUIRED ABSENCE OF UNSPECIFIED LEG BELOW KNEE
[2017-11-23] MEDS ORDERED: INSULIN (NOVOLOG) ASPART 100 UNITS/ML 10ML VIAL ONE ×2 (11:37→19:47)
[2017-11-23] MEDS ORDERED: SODIUM POLYSTYRENE SULFONATE 15 GM/60 ML BOTTLE PO ONE (12:27)
--- NOTE | 2017-11-23 16:36 | PATH ---
Surgical Pathology Report Patient Name: ROSANA MARTINEZ [facility]. Rec. #: [id number] /Age/Gender: 1965 (Age: 52) / F Account: [id number] Location: [address] [place] [address]/[facility] Taken: 11/21/2017 Received: 11/22/2017 Reported: 11/23/2017 Physicians: Ramy Harden M.D. Specimen(s) Received DEBRIDEMENT TISSUE AND BONE RIGHT FOOT Clinical History Right, diabetic foot ulcer Final Diagnosis FOOT, HEEL, RIGHT, TISSUE AND CALCANEOUS, DEBRIDEMENT AND BIOPSY: BONE WITH ACUTE OSTEOMYELITIS. SKIN WITH ACUTE AND CHRONIC INFLAMMATION. DETACHED FRAGMENTS OF NECROTIC TISSUE. Electronically Signed Kathy Zavala M.D. Gross Description Received in formalin labeled "debrided tissue and calcaneous," is a 3.0 x 1.8 x 0.3 cm aggregate of mars fragments of skin, soft tissue and bone. A insurance claims representative portion is submitted in one cassette, following decalcification. /11/22/2017 [facility]11/22/2017
[2017-11-23] MEDS: ATORVASTATIN CA 80 MG TABLET (FP) PO SCH (22:07)
[2017-11-23] MEDS: INSULIN (LEVEMIR) 100 UNITS/ML UNITS SQ SCH (22:08)
[2017-11-24] MEDS: MEROPENEM 1 GM in DEXTROSE 5%-WATER 100 ML IVPB SCH ×3 (02:36→17:40)
[2017-11-24] MEDS: oxyCODONE HCL 5 MG TABLET PO PRN ×2 (06:37→12:58)
[2017-11-24] MEDS: GABAPENTIN 400 MG CAPSULE (FP) PO SCH ×3 (06:37→21:52)
[2017-11-24] MEDS: INSULIN SLIDING SCALE (NOVOLOG) 1 VIAL SQ SCH ×4 (06:38→21:53)
[2017-11-24 08:19] LABS: HEMATOCRIT 25.4 % (32.4-45.2); HEMOGLOBIN 8.8 GM/dL (10.7-15.3); MCH 30.3 pg (25.7-33.7); MCHC 34.5 g/dl (32.0-36.0); MEAN CELL VOLUME 87.8 fl (80-96); MEAN PLT VOLUME 7.2 fl (7.5-11.1); PLATELET COUNT 412 K/MM3 (134-434); RBC 2.89 M/mm3 (3.60-5.2); RDW 16.2 % (11.6-15.6); WHITE BLOOD COUNT 6.5 K/mm3 (4.0-10.0)
[2017-11-24 08:50] LABS: ANION GAP 8 MMOL/L (8-16); BLOOD UREA NITROGEN 32 mg/dL (7-18); CHLORIDE 106 mmol/L (98-107); CO2 26 mmol/L (21-32); CREATININE 0.5 mg/dL (0.55-1.3); GLUCOSE,RANDOM 69 mg/dL (74-106); POTASSIUM 4.6 mmol/L (3.5-5.1); SODIUM 140 mmol/L (136-145)
--- NOTE | 2017-11-24 09:04 | PN ---
Progress Note (short form) - Note Progress Note: VSS VaC dressing in place. Gael arrange for Integra graft to cover calcaneus and promote healing. If stable may be ready by Tuesday. Continue IV abx.
[2017-11-24] MEDS: DULoxetine HCL 30 MG CAPSULE.DR (FP) PO SCH (10:27)
[2017-11-24] MEDS: FERROUS SO4 325 MG TABLET (FP) PO SCH (10:28)
[2017-11-24] MEDS: CLOPIDOGREL BISULFATE 75 MG TABLET (FP) PO SCH (10:28)
[2017-11-24] MEDS: ASPIRIN 81 MG CHEWABLE TABLETS PO SCH (10:28)
[2017-11-24] MEDS: PANTOPRAZOLE 40 MG TABLET (FP) PO SCH (10:28)
[2017-11-24] MEDS: MULTIVITAMINS (DAILY MVI) TABLET (FP) PO SCH (10:28)
[2017-11-24] MEDS: amLODIPine BESYLATE 10 MG TABLET (FP) PO SCH (10:28)
[2017-11-24] MEDS: ASCORBIC ACID 500 MG TABLET (FP) PO SCH ×2 (10:28→21:52)
[2017-11-24] MEDS: CARVEDILOL 12.5 MG TABLET (FP) PO SCH ×2 (10:28→21:52)
[2017-11-24] MEDS: ZINC SULFATE 220 MG CAPSULE (FP) PO SCH ×2 (10:28→21:52)
[2017-11-24] MEDS: FOLIC ACID 1 MG TABLET (FP) PO SCH (10:28)
[2017-11-24] MEDS: LISINOPRIL 20 MG TABLET (FP) PO SCH (10:29)
[2017-11-24] MEDS: BACITRACIN 15 GM TUBE TOPICAL OINTMENT TP SCH (10:35)
--- NOTE | 2017-11-24 10:42 | PN ---
Progress Note, Physician History of Present Illness: stable no issues some pain in the leg - Current Medication List Current Medications: Active Medications Acetaminophen (Tylenol -) 650 mg PO Q6H PRN PRN Reason: PAIN LEVEL 1-5 Last Admin: 11/22/17 06:43 Dose: 650 mg Amlodipine Besylate (Norvasc -) 10 mg PO DAILY [facility] Last Admin: 11/24/17 10:28 Dose: 10 mg Ascorbic Acid (Vitamin C -) 500 mg PO BID [facility] Last Admin: 11/24/17 10:28 Dose: 500 mg Aspirin (Asa -) 81 mg PO DAILY [facility] Last Admin: 11/24/17 10:28 Dose: 81 mg Atorvastatin Calcium (Lipitor -) 80 mg PO [facility] Last Admin: 11/23/17 22:07 Dose: 80 mg Bacitracin (Bacitracin -) 1 applic TP DAILY [facility] Last Admin: 11/24/17 10:35 Dose: 1 applic Carvedilol (Coreg -) 12.5 mg PO BID [facility] Last Admin: 11/24/17 10:28 Dose: 12.5 mg Clopidogrel Bisulfate (Plavix -) 75 mg PO DAILY [facility] Last Admin: 11/24/17 10:28 Dose: 75 mg Docusate Sodium (Colace -) 100 mg PO BID [facility] Last Admin: 11/23/17 21:28 Dose: Not Given Duloxetine HCl (Cymbalta -) 60 mg PO DAILY [facility] Last Admin: 11/24/17 10:27 Dose: 60 mg Ferrous Sulfate (Feosol -) 325 mg PO DAILY [facility] Last Admin: 11/24/17 10:28 Dose: 325 mg Folic Acid (Folic Acid -) 1 mg PO DAILY [facility] Last Admin: 11/24/17 10:28 Dose: 1 mg Gabapentin (Neurontin -) 400 mg PO TID [facility] Last Admin: 11/24/17 06:37 Dose: 400 mg Meropenem 1 gm/ Dextrose 100 mls @ 200 mls/hr IVPB Q8H-IV [facility] Last Admin: 11/24/17 10:28 Dose: 200 mls/hr Insulin Aspart (Novolog Vial Sliding Scale -) 1 vial SQ [facility]; Protocol Last Admin: 11/24/17 06:38 Dose: Not Given Insulin Detemir (Levemir Vial) 24 units SQ [facility] Last Admin: 09/19/18 22:08 Dose: 24 units Lisinopril (Prinivil) 20 mg PO DAILY [facility] Last Admin: 11/24/17 10:29 Dose: 20 mg Multivitamins/Minerals/Vitamin C (Tab-A-Vit -) 1 tab PO DAILY [facility] Last Admin: 11/24/17 10:28 Dose: 1 tab Ondansetron HCl (Zofran Injection) 4 mg IVPUSH Q6H PRN PRN Reason: NAUSEA AND/OR VOMITING Last Admin: 11/24/17 09:22 Dose: 4 mg Oxycodone HCl (Roxicodone -) 5 mg PO Q6H PRN PRN Reason: PAIN LEVEL 1-5 Last Admin: 11/23/17 09:42 Dose: 5 mg Oxycodone HCl (Roxicodone -) 10 mg PO Q6H PRN PRN Reason: PAIN LEVEL 6-10 Last Admin: 11/24/17 06:37 Dose: 10 mg Pantoprazole Sodium (Protonix -) 40 mg PO DAILY [facility] Last Admin: 11/24/17 10:28 Dose: 40 mg Promethazine HCl (Phenergan Injection -) 12.5 mg IVPB Q6H PRN PRN Reason: NAUSEA-FOR RESCUE AFTER 15 MIN Zinc Sulfate (Orazinc -) 220 mg PO BID [facility] Last Admin: 11/24/17 10:28 Dose: 220 mg - Objective Vital Signs: Vital Signs Temperature 98.2 F 11/24/17 09:56 Pulse Rate 94 H 11/24/17 09:56 Respiratory Rate 20 11/24/17 09:56 Blood Pressure 153/87 11/24/17 09:56 O2 Sat by Pulse Oximetry (%) 98 11/23/17 21:00 Constitutional: Yes: No Distress, Calm Cardiovascular: Yes: Regular Rate and Rhythm Respiratory: Yes: Regular, CTA Bilaterally Gastrointestinal: Yes: Normal Bowel Sounds, Soft Musculoskeletal: Yes: WNL Extremities: Yes: Other Neurological: Yes: Alert, Oriented Psychiatric: Yes: Alert, Oriented Labs: CBC, BMP 11/24/17 07:00 11/24/17 07:00 INR, PTT INR 1.07 (0.83-1.09) 11/17/17 19:53 Assessment/Plan - Problems (1) Diabetic foot ulcer Code(s): E11.621 - TYPE 2 DIABETES MELLITUS WITH FOOT ULCER; L97.509 - NON- PRESSURE CHRONIC ULCER OTH PRT UNSP FOOT W UNSP SEVERITY (2) Osteomyelitis Code(s): M86.9 - OSTEOMYELITIS, UNSPECIFIED Qualifiers: Osteomyelitis type: unspecified type Osteomyelitis location: foot Laterality: right Qualified Code(s): M86.9 - Osteomyelitis, unspecified (3) Anemia Code(s): D64.9 - ANEMIA, UNSPECIFIED (4) Depression Code(s): F32.9 - MAJOR DEPRESSIVE DISORDER, SINGLE EPISODE, UNSPECIFIED Qualifiers: Depression Type: other depression Qualified Code(s): F32.89 - Other specified depressive episodes (5) Diabetes mellitus Code(s): E11.9 - TYPE 2 DIABETES MELLITUS WITHOUT COMPLICATIONS Qualifiers: Diabetes mellitus type: type 2 Diabetes mellitus middle or intermediate school principal insulin use: without middle or intermediate school principal use Diabetes mellitus complication status: with circulatory complication Diabetes mellitus complication detail: with peripheral angiopathy with gangrene Qualified Code(s): E11.52 - Type 2 diabetes mellitus with diabetic peripheral angiopathy with gangrene (6) S/P BKA (below knee amputation) unilateral Code(s): Z89.519 - ACQUIRED ABSENCE OF UNSPECIFIED LEG BELOW KNEE (7) S/P vascular bypass Code(s): Z95.828 - PRESENCE OF OTHER VASCULAR IMPLANTS AND GRAFTS (8) HTN (hypertension) Code(s): I10 - ESSENTIAL (PRIMARY) HYPERTENSION Qualifiers: Hypertension type: essential hypertension Qualified Code(s): I10 - Essential (primary) hypertension (9) Hypercholesterolemia Code(s): E78.00 - PURE HYPERCHOLESTEROLEMIA, UNSPECIFIED (10) Femoral-popliteal artery atherosclerosis Code(s): I70.209 - UNSP ATHSCL AKHIOK ARTERIES OF EXTREMITIES, UNSP EXTREMITY Assessment/Plan 52 y.o. female with PMH of Uncontrolled DM, PAD s/p Rt fem-tibial bypass, s/p Lt BKA, HTN, HLD, depression and chronic Rt heel ulcer s/p debridement on and course of antibiotics re-admitted with malodorous drainage from Rt heel wound (described as 5X5 cm, with exposed bone) for past few days. Pt currently with wound vac on, +tenderness, elevated ESR. Infected Diabetic Rt heel ulcer/OM Uncontrolled DM PAD s/p RLE bypass s/p Lt BKA HTN HLD plan continue abx wound care plan for debridement rest as per the team
[2017-11-24] MEDS: DOCUSATE SODIUM 100 MG CAPSULE (FP) PO SCH ×2 (10:50→21:49)
[2017-11-24] MEDS ORDERED: INSULIN (NOVOLOG) ASPART 100 UNITS/ML 10ML VIAL ONE (11:05)
[2017-11-24] MEDS ORDERED: ONDANSETRON 4 MG/2 ML VIAL IVPUSH PRN (12:15)
--- NOTE | 2017-11-24 12:35 | PN ---
Progress Note (short form) - Note Progress Note: - Note Progress Note: pt seen/ examined s/p debridement of heel ulcer on wound vac no blood in stools nauseous this AM no abd pain normal BM s/p PRBC yesterday Vital Signs - 24 hr 11/23/17 11/23/17 11/23/17 14:34 18:00 21:00 Temperature 97.5 F L 98.0 F Pulse Rate 90 85 Respiratory 18 20 20 Rate Blood Pressure 142/79 146/78 O2 Sat by Pulse 98 Oximetry (%) 11/23/17 11/24/17 11/24/17 22:00 06:00 09:56 Temperature 98.2 F 98.1 F 98.2 F Pulse Rate 92 H 98 H 94 H Respiratory 20 20 20 Rate Blood Pressure 150/86 143/83 153/87 O2 Sat by Pulse Oximetry (%) Current Medications Generic Name Dose Route Start Last Admin Trade Name Freq PRN Reason Stop Dose Admin Acetaminophen 650 mg 11/21/17 17:52 11/22/17 06:43 Tylenol - PO 650 mg Q6H PRN Administration PAIN LEVEL 1-5 Amlodipine Besylate 10 mg 11/22/17 10:00 11/24/17 10:28 Norvasc - PO 10 mg DAILY [facility] Administration Ascorbic Acid 500 mg 11/21/17 22:00 11/24/17 10:28 Vitamin C - PO 500 mg BID [facility] Administration Aspirin 81 mg 11/22/17 10:00 11/24/17 10:28 Asa - PO 81 mg DAILY [facility] Administration Atorvastatin Calcium 80 mg 11/21/17 22:00 11/23/17 22:07 Lipitor - PO 80 mg HS [facility] Administration Bacitracin 1 applic 11/22/17 10:00 11/24/17 10:35 Bacitracin - TP 1 applic DAILY [facility] Administration Carvedilol 12.5 mg 11/21/17 22:00 11/24/17 10:28 Coreg - PO 12.5 mg BID [facility] Administration Clopidogrel Bisulfate 75 mg 11/22/17 10:00 11/24/17 10:28 Plavix - PO 75 mg DAILY [facility] Administration Docusate Sodium 100 mg 11/21/17 22:00 11/24/17 10:50 Colace - PO Not Given BID [facility] Duloxetine HCl 60 mg 11/22/17 10:00 11/24/17 10:27 Cymbalta - PO 60 mg DAILY [facility] Administration Ferrous Sulfate 325 mg 11/22/17 10:00 11/24/17 10:28 Feosol - PO 325 mg DAILY [facility] Administration Folic Acid 1 mg 11/22/17 10:00 11/24/17 10:28 Folic Acid - PO 1 mg DAILY [facility] Administration Gabapentin 400 mg 11/21/17 22:00 11/24/17 06:37 Neurontin - PO 400 mg TID [facility] Administration Meropenem 1 gm/ Dextrose 100 mls @ 200 mls/hr 11/21/17 18:00 11/24/17 10:28 IVPB 200 mls/hr Q8H-IV [facility] Administration Insulin Aspart 1 vial 11/21/17 22:00 11/24/17 11:56 Novolog Vial Sliding Scale - SQ Not Given [facility] Protocol Insulin Detemir 22 units 11/24/17 12:15 Levemir Vial SQ HS [facility] Lisinopril 20 mg 11/22/17 10:00 11/24/17 10:29 Prinivil PO 20 mg DAILY [facility] Administration Multivitamins/Minerals/Vitamin C 1 tab 11/22/17 10:00 11/24/17 10:28 Tab-A-Vit - PO 1 tab DAILY [facility] Administration Ondansetron HCl 4 mg 11/24/17 12:15 Zofran Injection IVPUSH Q4H PRN NAUSEA AND/OR VOMITING Oxycodone HCl 5 mg 11/22/17 11:55 11/23/17 09:42 Roxicodone - PO 5 mg Q6H PRN Administration PAIN LEVEL 1-5 Oxycodone HCl 10 mg 11/22/17 11:55 11/24/17 06:37 Roxicodone - PO 10 mg Q6H PRN Administration PAIN LEVEL 6-10 Pantoprazole Sodium 40 mg 11/22/17 10:00 11/24/17 10:28 Protonix - PO 40 mg DAILY [facility] Administration Promethazine HCl 12.5 mg 11/21/17 17:52 Phenergan Injection - IVPB Q6H PRN NAUSEA-FOR RESCUE AFTER 15 MIN Zinc Sulfate 220 mg 11/21/17 22:00 11/24/17 10:28 Orazinc - PO 220 mg BID [facility] Administration Laboratory Results - last 24 hr 11/23/17 11/23/17 11/23/17 13:08 16:52 21:42 WBC RBC Hgb Hct MCV MCH MCHC RDW Plt Count MPV Sodium Potassium Chloride Carbon Dioxide Anion Gap BUN Creatinine Creat Clearance w eGFR POC Glucometer 142 260 Random Glucose Calcium Blood Type A POSITIVE Antibody Screen Negative Crossmatch See Detail 11/24/17 11/24/17 11/24/17 06:36 07:00 07:00 WBC 6.5 RBC 2.89 L Hgb 8.8 L Hct 25.4 L MCV 87.8 MCH 30.3 MCHC 34.5 RDW 16.2 H Plt Count 412 MPV 7.2 L Sodium 140 Potassium 4.6 Chloride 106 Carbon Dioxide 26 Anion Gap 8 BUN 32 H Creatinine 0.5 L Creat Clearance w eGFR > 60 POC Glucometer 79 Random Glucose 69 L Calcium 9.0 Blood Type Antibody Screen Crossmatch 11/24/17 11:34 WBC RBC Hgb Hct MCV MCH MCHC RDW Plt Count MPV Sodium Potassium Chloride Carbon Dioxide Anion Gap BUN Creatinine Creat Clearance w eGFR POC Glucometer 141 Random Glucose Calcium Blood Type Antibody Screen Crossmatch Physical Constitutional: Yes: No Distress, Comfortable. Eyes: Yes: Conjunctiva Clear Neck: Yes: Supple Cardiovascular: Yes: Regular Rate and Rhythm Respiratory: Yes: Diminished Gastrointestinal: Yes: Soft Edema: No Wound/Incision: Yes: Other (Right heel chronic wound-) s/p left BKA ,foot warm Psychiatric: Yes: Alert Assessment/Plan In summary 52 y.o. female with PMH of Uncontrolled DM, PAD s/p Rt fem-tibial bypass, s/p Lt BKA, HTN, HLD, depression and chronic Rt heel ulcer s/p debridement on and course of antibiotics re-admitted with malodorous drainage from Rt heel wound --with exposed bone) continue abx wound vac placed monitor bp/bgm- decrease Levemir as her sugars are lower side pain control zofran as needed monitor cbc for OR on Tuesday for Integra graft Problem List - Problems (1) Diabetic foot ulcer Code(s): E11.621 - TYPE 2 DIABETES MELLITUS WITH FOOT ULCER; L97.509 - NON- PRESSURE CHRONIC ULCER OTH PRT UNSP FOOT W UNSP SEVERITY (2) Anemia Code(s): D64.9 - ANEMIA, UNSPECIFIED (3) S/P BKA (below knee amputation) unilateral Code(s): Z89.519 - ACQUIRED ABSENCE OF UNSPECIFIED LEG BELOW KNEE
[2017-11-24] MEDS: INSULIN (LEVEMIR) 100 UNITS/ML UNITS SQ SCH (21:51)
[2017-11-24] MEDS: ATORVASTATIN CA 80 MG TABLET (FP) PO SCH (21:52)
[2017-11-25] MEDS: oxyCODONE HCL 5 MG TABLET PO PRN ×5 (01:40→18:54)
[2017-11-25] MEDS: MEROPENEM 1 GM in DEXTROSE 5%-WATER 100 ML IVPB SCH ×3 (01:42→18:55)
[2017-11-25] MEDS: INSULIN SLIDING SCALE (NOVOLOG) 1 VIAL SQ SCH ×4 (06:58→22:06)
[2017-11-25] MEDS: GABAPENTIN 400 MG CAPSULE (FP) PO SCH ×3 (07:01→22:07)
[2017-11-25] MEDS ORDERED: PT OWN MED DRAWER 7, Y5N ONE ×2 (09:06→18:38)
[2017-11-25] MEDS: MULTIVITAMINS (DAILY MVI) TABLET (FP) PO SCH (09:21)
[2017-11-25] MEDS: DULoxetine HCL 30 MG CAPSULE.DR (FP) PO SCH (09:21)
[2017-11-25] MEDS: FOLIC ACID 1 MG TABLET (FP) PO SCH (09:23)
[2017-11-25] MEDS: ASPIRIN 81 MG CHEWABLE TABLETS PO SCH (09:23)
[2017-11-25] MEDS: CARVEDILOL 12.5 MG TABLET (FP) PO SCH ×2 (09:23→22:07)
[2017-11-25] MEDS: PANTOPRAZOLE 40 MG TABLET (FP) PO SCH (09:23)
[2017-11-25] MEDS: ZINC SULFATE 220 MG CAPSULE (FP) PO SCH ×2 (09:24→22:09)
[2017-11-25] MEDS: CLOPIDOGREL BISULFATE 75 MG TABLET (FP) PO SCH (09:24)
[2017-11-25] MEDS: ASCORBIC ACID 500 MG TABLET (FP) PO SCH ×2 (09:24→22:07)
[2017-11-25] MEDS: amLODIPine BESYLATE 10 MG TABLET (FP) PO SCH (09:24)
[2017-11-25] MEDS: FERROUS SO4 325 MG TABLET (FP) PO SCH (09:25)
[2017-11-25] MEDS: DOCUSATE SODIUM 100 MG CAPSULE (FP) PO SCH ×2 (09:25→22:07)
[2017-11-25] MEDS: LISINOPRIL 20 MG TABLET (FP) PO SCH (09:25)
--- NOTE | 2017-11-25 09:26 | PN ---
Progress Note, Physician History of Present Illness: stable no issues - Current Medication List Current Medications: Active Medications Acetaminophen (Tylenol -) 650 mg PO Q6H PRN PRN Reason: PAIN LEVEL 1-5 Last Admin: 11/22/17 06:43 Dose: 650 mg Amlodipine Besylate (Norvasc -) 10 mg PO DAILY [facility] Last Admin: 11/24/17 10:28 Dose: 10 mg Ascorbic Acid (Vitamin C -) 500 mg PO BID [facility] Last Admin: 11/24/17 21:52 Dose: 500 mg Aspirin (Asa -) 81 mg PO DAILY [facility] Last Admin: 11/24/17 10:28 Dose: 81 mg Atorvastatin Calcium (Lipitor -) 80 mg PO HS [facility] Last Admin: 11/24/17 21:52 Dose: 80 mg Bacitracin (Bacitracin -) 1 applic TP DAILY [facility] Last Admin: 11/24/17 10:35 Dose: 1 applic Carvedilol (Coreg -) 12.5 mg PO BID [facility] Last Admin: 11/24/17 21:52 Dose: 12.5 mg Clopidogrel Bisulfate (Plavix -) 75 mg PO DAILY [facility] Last Admin: 11/24/17 10:28 Dose: 75 mg Docusate Sodium (Colace -) 100 mg PO BID [facility] Last Admin: 11/24/17 21:49 Dose: Not Given Duloxetine HCl (Cymbalta -) 60 mg PO DAILY [facility] Last Admin: 11/24/17 10:27 Dose: 60 mg Ferrous Sulfate (Feosol -) 325 mg PO DAILY [facility] Last Admin: 11/24/17 10:28 Dose: 325 mg Folic Acid (Folic Acid -) 1 mg PO DAILY [facility] Last Admin: 11/24/17 10:28 Dose: 1 mg Gabapentin (Neurontin -) 400 mg PO TID [facility] Last Admin: 11/25/17 07:01 Dose: 400 mg Meropenem 1 gm/ Dextrose 100 mls @ 200 mls/hr IVPB Q8H-IV [facility] Last Admin: 11/25/17 01:42 Dose: 200 mls/hr Insulin Aspart (Novolog Vial Sliding Scale -) 1 vial SQ [facility]; Protocol Last Admin: 11/25/17 06:58 Dose: Not Given Insulin Detemir (Levemir Vial) 22 units SQ [facility] Last Admin: 11/24/17 21:51 Dose: 22 units Lisinopril (Prinivil) 20 mg PO DAILY [facility] Last Admin: 11/24/17 10:29 Dose: 20 mg Multivitamins/Minerals/Vitamin C (Tab-A-Vit -) 1 tab PO DAILY [facility] Last Admin: 11/24/17 10:28 Dose: 1 tab Ondansetron HCl (Zofran Injection) 4 mg IVPUSH Q4H PRN PRN Reason: NAUSEA AND/OR VOMITING Oxycodone HCl (Roxicodone -) 5 mg PO Q6H PRN PRN Reason: PAIN LEVEL 1-5 Last Admin: 11/23/17 09:42 Dose: 5 mg Oxycodone HCl (Roxicodone -) 10 mg PO Q6H PRN PRN Reason: PAIN LEVEL 6-10 Last Admin: 11/25/17 01:40 Dose: 10 mg Pantoprazole Sodium (Protonix -) 40 mg PO DAILY [facility] Last Admin: 11/24/17 10:28 Dose: 40 mg Promethazine HCl (Phenergan Injection -) 12.5 mg IVPB Q6H PRN PRN Reason: NAUSEA-FOR RESCUE AFTER 15 MIN Zinc Sulfate (Orazinc -) 220 mg PO BID [facility] Last Admin: 11/24/17 21:52 Dose: 220 mg - Objective Vital Signs: Vital Signs Temperature 97.4 F L 11/25/17 06:00 Pulse Rate 86 11/25/17 06:00 Respiratory Rate 20 11/25/17 06:00 Blood Pressure 126/68 11/25/17 06:00 O2 Sat by Pulse Oximetry (%) 100 11/24/17 21:00 Constitutional: Yes: No Distress, Calm Cardiovascular: Yes: Regular Rate and Rhythm Gastrointestinal: Yes: Normal Bowel Sounds Musculoskeletal: Yes: WNL Extremities: Yes: WNL Neurological: Yes: Alert, Oriented Psychiatric: Yes: Alert, Oriented Labs: CBC, BMP 11/24/17 07:00 11/24/17 07:00 INR, PTT INR 1.07 (0.83-1.09) 11/17/17 19:53 Assessment/Plan - Problems (1) Diabetic foot ulcer Code(s): E11.621 - TYPE 2 DIABETES MELLITUS WITH FOOT ULCER; L97.509 - NON- PRESSURE CHRONIC ULCER OTH PRT UNSP FOOT W UNSP SEVERITY (2) Osteomyelitis Code(s): M86.9 - OSTEOMYELITIS, UNSPECIFIED Qualifiers: Osteomyelitis type: unspecified type Osteomyelitis location: foot Laterality: right Qualified Code(s): M86.9 - Osteomyelitis, unspecified (3) Anemia Code(s): D64.9 - ANEMIA, UNSPECIFIED (4) Depression Code(s): F32.9 - MAJOR DEPRESSIVE DISORDER, SINGLE EPISODE, UNSPECIFIED Qualifiers: Depression Type: other depression Qualified Code(s): F32.89 - Other specified depressive episodes (5) Diabetes mellitus Code(s): E11.9 - TYPE 2 DIABETES MELLITUS WITHOUT COMPLICATIONS Qualifiers: Diabetes mellitus type: type 2 Diabetes mellitus detention insulin use: without lobsterman use Diabetes mellitus complication status: with circulatory complication Diabetes mellitus complication detail: with peripheral angiopathy with gangrene Qualified Code(s): E11.52 - Type 2 diabetes mellitus with diabetic peripheral angiopathy with gangrene (6) S/P BKA (below knee amputation) unilateral Code(s): Z89.519 - ACQUIRED ABSENCE OF UNSPECIFIED LEG BELOW KNEE (7) S/P vascular bypass Code(s): Z95.828 - PRESENCE OF OTHER VASCULAR IMPLANTS AND GRAFTS (8) HTN (hypertension) Code(s): I10 - ESSENTIAL (PRIMARY) HYPERTENSION Qualifiers: Hypertension type: essential hypertension Qualified Code(s): I10 - Essential (primary) hypertension (9) Hypercholesterolemia Code(s): E78.00 - PURE HYPERCHOLESTEROLEMIA, UNSPECIFIED (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 female with PMH of Uncontrolled DM, PAD s/p Rt fem-tibial bypass, s/p Lt BKA, HTN, HLD, depression and chronic Rt heel ulcer s/p debridement on and course of antibiotics re-admitted with malodorous drainage from Rt heel wound (described as 5X5 cm, with exposed bone) for past few days. Pt currently with wound vac on, +tenderness, elevated ESR. Infected Diabetic Rt heel ulcer/OM Uncontrolled DM PAD s/p RLE bypass s/p Lt BKA HTN HLD plan continue abx wound care await for debridement rest as per the team will switch to oral after debridement
[2017-11-25] MEDS: BACITRACIN 15 GM TUBE TOPICAL OINTMENT TP SCH (10:59)
--- NOTE | 2017-11-25 11:26 | PN ---
Progress Note (short form) - Note Progress Note: pt seen/ examined chart reviewed comfortable no distress afebrile Vital Signs Temp 97.4 F L 11/25/17 06:00 Pulse 86 11/25/17 06:00 Resp 20 11/25/17 06:00 BP 126/68 11/25/17 06:00 Pulse Ox 100 11/24/17 21:00 Intake & Output 11/24/17 11/24/17 11/25/17 11:59 23:59 11:59 Intake Total 550 1370 100 Balance 550 1370 100 Intake: IVPB 100 200 100 Oral 450 1170 Other: Voiding Method Diaper Bedpan # Unmeasured Voids Void 2 1 2 Bowel Movement No Yes No Active Medications Acetaminophen (Tylenol -) 650 mg PO Q6H PRN PRN Reason: PAIN LEVEL 1-5 Last Admin: 11/22/17 06:43 Dose: 650 mg Amlodipine Besylate (Norvasc -) 10 mg PO DAILY [facility] Last Admin: 11/25/17 09:24 Dose: 10 mg Ascorbic Acid (Vitamin C -) 500 mg PO BID [facility] Last Admin: 11/25/17 09:24 Dose: 500 mg Aspirin (Asa -) 81 mg PO DAILY [facility] Last Admin: 11/25/17 09:23 Dose: 81 mg Atorvastatin Calcium (Lipitor -) 80 mg PO HS [facility] Last Admin: 11/24/17 21:52 Dose: 80 mg Bacitracin (Bacitracin -) 1 applic TP DAILY [facility] Last Admin: 11/25/17 10:59 Dose: 1 applic Carvedilol (Coreg -) 12.5 mg PO BID [facility] Last Admin: 11/25/17 09:23 Dose: 12.5 mg Clopidogrel Bisulfate (Plavix -) 75 mg PO DAILY [facility] Last Admin: 11/25/17 09:24 Dose: 75 mg Docusate Sodium (Colace -) 100 mg PO BID [facility] Last Admin: 11/25/17 09:25 Dose: Not Given Duloxetine HCl (Cymbalta -) 60 mg PO DAILY [facility] Last Admin: 11/25/17 09:21 Dose: 60 mg Ferrous Sulfate (Feosol -) 325 mg PO DAILY [facility] Last Admin: 11/25/17 09:25 Dose: 325 mg Folic Acid (Folic Acid -) 1 mg PO DAILY [facility] Last Admin: 11/25/17 09:23 Dose: 1 mg Gabapentin (Neurontin -) 400 mg PO TID [facility] Last Admin: 11/25/17 07:01 Dose: 400 mg Meropenem 1 gm/ Dextrose 100 mls @ 200 mls/hr IVPB Q8H-IV [facility] Last Admin: 11/25/17 09:20 Dose: 200 mls/hr Insulin Aspart (Novolog Vial Sliding Scale -) 1 vial SQ [facility]; Protocol Last Admin: 11/25/17 06:58 Dose: Not Given Insulin Detemir (Levemir Vial) 22 units SQ HS [facility] Last Admin: 11/24/17 21:51 Dose: 22 units Lisinopril (Prinivil) 20 mg PO DAILY [facility] Last Admin: 11/25/17 09:25 Dose: 20 mg Multivitamins/Minerals/Vitamin C (Tab-A-Vit -) 1 tab PO DAILY [facility] Last Admin: 11/25/17 09:21 Dose: 1 tab Ondansetron HCl (Zofran Injection) 4 mg IVPUSH Q4H PRN PRN Reason: NAUSEA AND/OR VOMITING Oxycodone HCl (Roxicodone -) 5 mg PO Q6H PRN PRN Reason: PAIN LEVEL 1-5 Last Admin: 11/23/17 09:42 Dose: 5 mg Oxycodone HCl (Roxicodone -) 10 mg PO Q6H PRN PRN Reason: PAIN LEVEL 6-10 Last Admin: 11/25/17 09:22 Dose: 10 mg Pantoprazole Sodium (Protonix -) 40 mg PO DAILY [facility] Last Admin: 11/25/17 09:23 Dose: 40 mg Promethazine HCl (Phenergan Injection -) 12.5 mg IVPB Q6H PRN PRN Reason: NAUSEA-FOR RESCUE AFTER 15 MIN Zinc Sulfate (Orazinc -) 220 mg PO BID [facility] Last Admin: 11/25/17 09:24 Dose: 220 mg CBC, BMP 11/24/17 07:00 11/24/17 07:00 Physical Constitutional: Yes: No Distress, Comfortable. Eyes: Yes: Conjunctiva Clear Neck: Yes: Supple Cardiovascular: Yes: Regular Rate and Rhythm Respiratory: Yes: Diminished Gastrointestinal: Yes: Soft/ non tender Edema: No Wound/Incision: Yes: Other (Right heel chronic wound-) s/p left BKA ,foot warm Psychiatric: Yes: Alert Assessment/Plan In summary 52 y.o. female with PMH of Uncontrolled DM, PAD s/p Rt fem-tibial bypass, s/p Lt BKA, HTN, HLD, depression and chronic Rt heel ulcer s/p debridement on and course of antibiotics re-admitted with malodorous drainage from Rt heel wound --with exposed bone) continue abx wound vac monitor bp/bgm pain control for OR on Tuesday for Integra graft for better healing will follow Problem List - Problems (1) Diabetic foot ulcer Code(s): E11.621 - TYPE 2 DIABETES MELLITUS WITH FOOT ULCER; L97.509 - NON- PRESSURE CHRONIC ULCER OTH PRT UNSP FOOT W UNSP SEVERITY (2) Anemia Code(s): D64.9 - ANEMIA, UNSPECIFIED (3) S/P BKA (below knee amputation) unilateral Code(s): Z89.519 - ACQUIRED ABSENCE OF UNSPECIFIED LEG BELOW KNEE
[2017-11-25] MEDS ORDERED: INSULIN (NOVOLOG) ASPART 100 UNITS/ML 10ML VIAL ONE ×2 (11:35→22:05)
[2017-11-25] MEDS: ATORVASTATIN CA 80 MG TABLET (FP) PO SCH (22:07)
[2017-11-25] MEDS: INSULIN (LEVEMIR) 100 UNITS/ML UNITS SQ SCH (22:07)
[2017-11-26] MEDS: oxyCODONE HCL 5 MG TABLET PO PRN (02:05)
[2017-11-26] MEDS: MEROPENEM 1 GM in DEXTROSE 5%-WATER 100 ML IVPB SCH ×3 (02:05→17:06)
[2017-11-26] MEDS: GABAPENTIN 400 MG CAPSULE (FP) PO SCH ×3 (06:47→22:06)
[2017-11-26] MEDS: INSULIN SLIDING SCALE (NOVOLOG) 1 VIAL SQ SCH ×4 (06:49→22:07)
--- NOTE | 2017-11-26 09:30 | PN ---
Progress Note (short form) - Note Progress Note: - Note Progress Note: pt seen/ examined s/p debridement of heel ulcer on wound vac no blood in stools nauseous this AM has abd discomfort Vital Signs - 24 hr 11/26/17 11/26/17 11/26/17 02:00 05:18 09:00 Temperature 97.6 F 97.5 F L Pulse Rate 99 H 92 H Respiratory 20 20 Rate Blood Pressure 150/78 146/75 O2 Sat by Pulse 98 Oximetry (%) Current Medications Generic Name Dose Route Start Last Admin Trade Name Freq PRN Reason Stop Dose Admin Acetaminophen 650 mg 11/21/17 17:52 11/22/17 06:43 Tylenol - PO 650 mg Q6H PRN Administration PAIN LEVEL 1-5 Amlodipine Besylate 10 mg 11/22/17 10:00 11/26/17 10:41 Norvasc - PO 10 mg DAILY JESSICA Administration Ascorbic Acid 500 mg 11/21/17 22:00 11/26/17 22:06 Vitamin C - PO 500 mg BID JESSICA Administration Aspirin 81 mg 11/22/17 10:00 11/26/17 10:40 Asa - PO 81 mg DAILY JESSICA Administration Atorvastatin Calcium 80 mg 11/21/17 22:00 11/26/17 22:06 Lipitor - PO 80 mg HS JESSICA Administration Bacitracin 1 applic 11/22/17 10:00 11/26/17 10:39 Bacitracin - TP 1 applic DAILY JESSICA Administration Carvedilol 12.5 mg 11/21/17 22:00 11/26/17 22:06 Coreg - PO 12.5 mg BID JESSICA Administration Clopidogrel Bisulfate 75 mg 11/22/17 10:00 11/26/17 10:42 Plavix - PO 75 mg DAILY JESSICA Administration Docusate Sodium 100 mg 11/21/17 22:00 11/26/17 22:07 Colace - PO 100 mg BID JESSICA Administration Duloxetine HCl 60 mg 11/22/17 10:00 11/26/17 10:42 Cymbalta - PO 60 mg DAILY JESSICA Administration Ferrous Sulfate 325 mg 11/22/17 10:00 11/26/17 10:41 Feosol - PO 325 mg DAILY JESSICA Administration Folic Acid 1 mg 11/22/17 10:00 11/26/17 10:41 Folic Acid - PO 1 mg DAILY JESSICA Administration Gabapentin 400 mg 11/21/17 22:00 11/26/17 22:06 Neurontin - PO 400 mg TID JESSICA Administration Meropenem 1 gm/ Dextrose 100 mls @ 200 mls/hr 11/21/17 18:00 11/26/17 17:06 IVPB 200 mls/hr Q8H-IV JESSICA Administration Insulin Aspart 1 vial 11/21/17 22:00 11/26/17 22:07 Novolog Vial Sliding Scale - SQ 4 units ACHS JESSICA Administration Protocol Insulin Detemir 22 units 11/24/17 12:15 11/26/17 22:07 Levemir Vial SQ Not Given [facility] Lisinopril 20 mg 11/22/17 10:00 11/26/17 10:41 Prinivil PO 20 mg DAILY JESSICA Administration Multivitamins/Minerals/Vitamin C 1 tab 11/22/17 10:00 11/26/17 10:41 Tab-A-Vit - PO 1 tab DAILY JESSICA Administration Ondansetron HCl 4 mg 11/24/17 12:15 Zofran Injection IVPUSH Q4H PRN NAUSEA AND/OR VOMITING Oxycodone HCl 5 mg 11/22/17 11:55 11/25/17 15:06 Roxicodone - PO 5 mg Q6H PRN Administration PAIN LEVEL 1-5 Oxycodone HCl 10 mg 11/22/17 11:55 11/26/17 02:05 Roxicodone - PO 10 mg Q6H PRN Administration PAIN LEVEL 6-10 Pantoprazole Sodium 40 mg 11/22/17 10:00 11/26/17 10:41 Protonix - PO 40 mg DAILY JESSICA Administration Promethazine HCl 12.5 mg 11/21/17 17:52 Phenergan Injection - IVPB Q6H PRN NAUSEA-FOR RESCUE AFTER 15 MIN Zinc Sulfate 220 mg 11/21/17 22:00 11/26/17 22:06 Orazinc - PO 220 mg BID JESSICA Administration Laboratory Results - last 24 hr 11/23/17 11/26/17 11/26/17 13:08 06:20 09:45 WBC 6.3 RBC 2.69 L Hgb 7.9 L Hct 23.6 L MCV 87.7 MCH 29.3 MCHC 33.4 RDW 15.5 Plt Count 374 MPV 6.9 L PT with INR INR Sodium Potassium Chloride Carbon Dioxide Anion Gap BUN Creatinine Creat Clearance w eGFR POC Glucometer 92 Random Glucose Calcium Total Bilirubin AST ALT Alkaline Phosphatase Total Protein Albumin Blood Type A POSITIVE Antibody Screen Negative Crossmatch See Detail 11/26/17 11/26/17 11/26/17 09:45 09:45 11:02 WBC RBC Hgb Hct MCV MCH MCHC RDW Plt Count MPV PT with INR 11.90 INR 1.05 Sodium 141 Potassium 4.6 Chloride 106 Carbon Dioxide 28 Anion Gap 7 L BUN 31 H Creatinine 0.6 Creat Clearance w eGFR > 60 POC Glucometer 141 Random Glucose 105 Calcium 8.8 Total Bilirubin 0.5 AST 22 ALT 46 Alkaline Phosphatase 101 Total Protein 6.4 Albumin 2.4 L Blood Type Antibody Screen Crossmatch 11/26/17 11/26/17 16:04 22:05 WBC RBC Hgb Hct MCV MCH MCHC RDW Plt Count MPV PT with INR INR Sodium Potassium Chloride Carbon Dioxide Anion Gap BUN Creatinine Creat Clearance w eGFR POC Glucometer 140 213 Random Glucose Calcium Total Bilirubin AST ALT Alkaline Phosphatase Total Protein Albumin Blood Type Antibody Screen Crossmatch Physical Constitutional: Yes: No Distress, Comfortable. Eyes: Yes: Conjunctiva Clear Neck: Yes: Supple Cardiovascular: Yes: Regular Rate and Rhythm Respiratory: Yes: Diminished Gastrointestinal: Yes: Soft Edema: No Wound/Incision: Yes: Other (Right heel chronic wound-) s/p left BKA ,foot warm Psychiatric: Yes: Alert Assessment/Plan In summary 52 y.o. female with PMH of Uncontrolled DM, PAD s/p Rt fem-tibial bypass, s/p Lt BKA, HTN, HLD, depression and chronic Rt heel ulcer s/p debridement on and course of antibiotics re-admitted with malodorous drainage from Rt heel wound --with exposed bone) continue abx wound vac placed monitor bp/bgm- decrease Levemir as her sugars are lower side pain control zofran as needed monitor cbc for OR on Tuesday for Integra graft check kian vasquez Problem List - Problems (1) Diabetic foot ulcer Code(s): E11.621 - TYPE 2 DIABETES MELLITUS WITH FOOT ULCER; L97.509 - NON- PRESSURE CHRONIC ULCER OTH PRT UNSP FOOT W UNSP SEVERITY (2) Anemia Code(s): D64.9 - ANEMIA, UNSPECIFIED (3) S/P BKA (below knee amputation) unilateral Code(s): Z89.519 - ACQUIRED ABSENCE OF UNSPECIFIED LEG BELOW KNEE
[2017-11-26] MEDS: DOCUSATE SODIUM 100 MG CAPSULE (FP) PO SCH ×3 (10:00→22:07)
--- NOTE | 2017-11-26 10:03 | PN ---
Progress Note, Physician History of Present Illness: stable - Current Medication List Current Medications: Active Medications Acetaminophen (Tylenol -) 650 mg PO Q6H PRN PRN Reason: PAIN LEVEL 1-5 Last Admin: 11/22/17 06:43 Dose: 650 mg Amlodipine Besylate (Norvasc -) 10 mg PO DAILY [facility] Last Admin: 11/25/17 09:24 Dose: 10 mg Ascorbic Acid (Vitamin C -) 500 mg PO BID [facility] Last Admin: 11/25/17 22:07 Dose: 500 mg Aspirin (Asa -) 81 mg PO DAILY [facility] Last Admin: 11/25/17 09:23 Dose: 81 mg Atorvastatin Calcium (Lipitor -) 80 mg PO HS [facility] Last Admin: 11/25/17 22:07 Dose: 80 mg Bacitracin (Bacitracin -) 1 applic TP DAILY [facility] Last Admin: 11/25/17 10:59 Dose: 1 applic Carvedilol (Coreg -) 12.5 mg PO BID [facility] Last Admin: 11/25/17 22:07 Dose: 12.5 mg Clopidogrel Bisulfate (Plavix -) 75 mg PO DAILY [facility] Last Admin: 11/25/17 09:24 Dose: 75 mg Docusate Sodium (Colace -) 100 mg PO BID [facility] Last Admin: 11/25/17 22:07 Dose: Not Given Duloxetine HCl (Cymbalta -) 60 mg PO DAILY [facility] Last Admin: 11/25/17 09:21 Dose: 60 mg Ferrous Sulfate (Feosol -) 325 mg PO DAILY [facility] Last Admin: 11/25/17 09:25 Dose: 325 mg Folic Acid (Folic Acid -) 1 mg PO DAILY [facility] Last Admin: 11/25/17 09:23 Dose: 1 mg Gabapentin (Neurontin -) 400 mg PO TID [facility] Last Admin: 11/26/17 06:47 Dose: 400 mg Meropenem 1 gm/ Dextrose 100 mls @ 200 mls/hr IVPB Q8H-IV [facility] Last Admin: 11/26/17 02:05 Dose: 200 mls/hr Insulin Aspart (Novolog Vial Sliding Scale -) 1 vial SQ [facility]; Protocol Last Admin: 11/26/17 06:49 Dose: Not Given Insulin Detemir (Levemir Vial) 22 units SQ [facility] Last Admin: 11/25/17 22:07 Dose: 22 units Lisinopril (Prinivil) 20 mg PO DAILY [facility] Last Admin: 11/25/17 09:25 Dose: 20 mg Multivitamins/Minerals/Vitamin C (Tab-A-Vit -) 1 tab PO DAILY [facility] Last Admin: 11/25/17 09:21 Dose: 1 tab Ondansetron HCl (Zofran Injection) 4 mg IVPUSH Q4H PRN PRN Reason: NAUSEA AND/OR VOMITING Oxycodone HCl (Roxicodone -) 5 mg PO Q6H PRN PRN Reason: PAIN LEVEL 1-5 Last Admin: 11/25/17 15:06 Dose: 5 mg Oxycodone HCl (Roxicodone -) 10 mg PO Q6H PRN PRN Reason: PAIN LEVEL 6-10 Last Admin: 11/26/17 02:05 Dose: 10 mg Pantoprazole Sodium (Protonix -) 40 mg PO DAILY [facility] Last Admin: 11/25/17 09:23 Dose: 40 mg Promethazine HCl (Phenergan Injection -) 12.5 mg IVPB Q6H PRN PRN Reason: NAUSEA-FOR RESCUE AFTER 15 MIN Zinc Sulfate (Orazinc -) 220 mg PO BID [facility] Last Admin: 11/25/17 22:09 Dose: 220 mg - Objective Vital Signs: Vital Signs Temperature 98.0 F 11/26/17 09:19 Pulse Rate 93 H 11/26/17 09:19 Respiratory Rate 18 11/26/17 09:19 Blood Pressure 107/60 11/26/17 09:19 O2 Sat by Pulse Oximetry (%) 100 11/25/17 21:00 Constitutional: Yes: No Distress, Calm Cardiovascular: Yes: Regular Rate and Rhythm Respiratory: Yes: Regular, CTA Bilaterally Gastrointestinal: Yes: Normal Bowel Sounds, Soft Musculoskeletal: Yes: WNL Extremities: Yes: Other Wound/Incision: Yes: Other (wound vac in place) Neurological: Yes: Alert, Oriented Psychiatric: Yes: Alert, Oriented Labs: INR, PTT INR 1.07 (0.83-1.09) 11/17/17 19:53 Assessment/Plan - Problems (1) Diabetic foot ulcer Code(s): E11.621 - TYPE 2 DIABETES MELLITUS WITH FOOT ULCER; L97.509 - NON- PRESSURE CHRONIC ULCER OTH PRT UNSP FOOT W UNSP SEVERITY (2) Osteomyelitis Code(s): M86.9 - OSTEOMYELITIS, UNSPECIFIED Qualifiers: Osteomyelitis type: unspecified type Osteomyelitis location: foot Laterality: right Qualified Code(s): M86.9 - Osteomyelitis, unspecified (3) Anemia Code(s): D64.9 - ANEMIA, UNSPECIFIED (4) Depression Code(s): F32.9 - MAJOR DEPRESSIVE DISORDER, SINGLE EPISODE, UNSPECIFIED Qualifiers: Depression Type: other depression Qualified Code(s): F32.89 - Other specified depressive episodes (5) Diabetes mellitus Code(s): E11.9 - TYPE 2 DIABETES MELLITUS WITHOUT COMPLICATIONS Qualifiers: Diabetes mellitus type: type 2 Diabetes mellitus [employer] insulin use: without senior living use Diabetes mellitus complication status: with circulatory complication Diabetes mellitus complication detail: with peripheral angiopathy with gangrene Qualified Code(s): E11.52 - Type 2 diabetes mellitus with diabetic peripheral angiopathy with gangrene (6) S/P BKA (below knee amputation) unilateral Code(s): Z89.519 - ACQUIRED ABSENCE OF UNSPECIFIED LEG BELOW KNEE (7) S/P vascular bypass Code(s): Z95.828 - PRESENCE OF OTHER VASCULAR IMPLANTS AND GRAFTS (8) HTN (hypertension) Code(s): I10 - ESSENTIAL (PRIMARY) HYPERTENSION Qualifiers: Hypertension type: essential hypertension Qualified Code(s): I10 - Essential (primary) hypertension (9) Hypercholesterolemia Code(s): E78.00 - PURE HYPERCHOLESTEROLEMIA, UNSPECIFIED (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 female with PMH of Uncontrolled DM, PAD s/p Rt fem-tibial bypass, s/p Lt BKA, HTN, HLD, depression and chronic Rt heel ulcer s/p debridement on and course of antibiotics re-admitted with malodorous drainage from Rt heel wound (described as 5X5 cm, with exposed bone) for past few days. Pt currently with wound vac on, +tenderness, elevated ESR. Infected Diabetic Rt heel ulcer/OM Uncontrolled DM PAD s/p RLE bypass s/p Lt BKA HTN HLD plan continue abx wound care plan for debridement on tuesday rest as per the team once debrided will switch to oral
[2017-11-26 10:10] LABS: HEMATOCRIT 23.6 % (32.4-45.2); HEMOGLOBIN 7.9 GM/dL (10.7-15.3); MCH 29.3 pg (25.7-33.7); MCHC 33.4 g/dl (32.0-36.0); MEAN CELL VOLUME 87.7 fl (80-96); MEAN PLT VOLUME 6.9 fl (7.5-11.1); PLATELET COUNT 374 K/MM3 (134-434); RBC 2.69 M/mm3 (3.60-5.2); RDW 15.5 % (11.6-15.6); WHITE BLOOD COUNT 6.3 K/mm3 (4.0-10.0)
[2017-11-26 10:28] LABS: INR 1.05 (0.83-1.09); PROTHROMBIN TIME (PATIENT) 11.9 SEC (9.7-13.0)
[2017-11-26] MEDS ORDERED: PT OWN MED DRAWER 7, Y5N ONE ×2 (10:31→16:56)
[2017-11-26] MEDS: BACITRACIN 15 GM TUBE TOPICAL OINTMENT TP SCH (10:39)
[2017-11-26] MEDS: ASCORBIC ACID 500 MG TABLET (FP) PO SCH ×2 (10:40→22:06)
[2017-11-26] MEDS: ZINC SULFATE 220 MG CAPSULE (FP) PO SCH ×2 (10:40→22:06)
[2017-11-26] MEDS: ASPIRIN 81 MG CHEWABLE TABLETS PO SCH (10:40)
[2017-11-26] MEDS: LISINOPRIL 20 MG TABLET (FP) PO SCH (10:41)
[2017-11-26] MEDS: FOLIC ACID 1 MG TABLET (FP) PO SCH (10:41)
[2017-11-26] MEDS: FERROUS SO4 325 MG TABLET (FP) PO SCH (10:41)
[2017-11-26] MEDS: PANTOPRAZOLE 40 MG TABLET (FP) PO SCH (10:41)
[2017-11-26] MEDS: amLODIPine BESYLATE 10 MG TABLET (FP) PO SCH (10:41)
[2017-11-26] MEDS: MULTIVITAMINS (DAILY MVI) TABLET (FP) PO SCH (10:41)
[2017-11-26] MEDS: CLOPIDOGREL BISULFATE 75 MG TABLET (FP) PO SCH (10:42)
[2017-11-26] MEDS: CARVEDILOL 12.5 MG TABLET (FP) PO SCH ×2 (10:42→22:06)
[2017-11-26] MEDS: DULoxetine HCL 30 MG CAPSULE.DR (FP) PO SCH (10:42)
[2017-11-26] MEDS ORDERED: INSULIN (NOVOLOG) ASPART 100 UNITS/ML 10ML VIAL ONE (10:54)
[2017-11-26 11:20] LABS: ALBUMIN 2.4 g/dl (3.4-5.0); ALK PHOS 101 U/L (45-117); ANION GAP 7 MMOL/L (8-16); BILIRUBIN,TOTAL 0.5 mg/dL (0.2-1); BLOOD UREA NITROGEN 31 mg/dL (7-18); CALCIUM 8.8 mg/dL (8.5-10.1); CHLORIDE 106 mmol/L (98-107); CO2 28 mmol/L (21-32); CREATININE 0.6 mg/dL (0.55-1.3); GLUCOSE,RANDOM 105 mg/dL (74-106); POTASSIUM 4.6 mmol/L (3.5-5.1); SGOT/AST 22 U/L (15-37); SGPT/ALT 46 U/L (13-61); SODIUM 141 mmol/L (136-145); TOT PROT 6.4 g/dl (6.4-8.2)
[2017-11-26] MEDS: ATORVASTATIN CA 80 MG TABLET (FP) PO SCH (22:06)
[2017-11-26] MEDS: INSULIN (LEVEMIR) 100 UNITS/ML UNITS SQ SCH (22:07)
[2017-11-27] MEDS: MEROPENEM 1 GM in DEXTROSE 5%-WATER 100 ML IVPB SCH ×3 (01:02→17:24)
[2017-11-27] MEDS: oxyCODONE HCL 5 MG TABLET PO PRN ×2 (04:56→21:51)
[2017-11-27] MEDS: INSULIN SLIDING SCALE (NOVOLOG) 1 VIAL SQ SCH ×4 (06:47→21:53)
[2017-11-27] MEDS: GABAPENTIN 400 MG CAPSULE (FP) PO SCH ×3 (06:48→21:51)
[2017-11-27] MEDS ORDERED: INSULIN (NOVOLOG) ASPART 100 UNITS/ML 10ML VIAL ONE (06:52)
[2017-11-27] MEDS ORDERED: INSULIN (LEVEMIR) 100 UNITS/ML UNITS SQ ONE (06:52)
[2017-11-27 07:21] LABS: HEMATOCRIT 23.7 % (32.4-45.2); HEMOGLOBIN 8.1 GM/dL (10.7-15.3); MCHC 34.2 g/dl (32.0-36.0); MEAN CELL VOLUME 87.7 fl (80-96); MEAN PLT VOLUME 7.2 fl (7.5-11.1); PLATELET COUNT 376 K/MM3 (134-434); RDW 15.3 % (11.6-15.6); WHITE BLOOD COUNT 7.7 K/mm3 (4.0-10.0)
[2017-11-27] MEDS: FERROUS SO4 325 MG TABLET (FP) PO SCH (10:18)
[2017-11-27] MEDS: amLODIPine BESYLATE 10 MG TABLET (FP) PO SCH (10:18)
[2017-11-27] MEDS: CARVEDILOL 12.5 MG TABLET (FP) PO SCH ×2 (10:18→21:51)
[2017-11-27] MEDS: MULTIVITAMINS (DAILY MVI) TABLET (FP) PO SCH (10:18)
[2017-11-27] MEDS: DOCUSATE SODIUM 100 MG CAPSULE (FP) PO SCH ×2 (10:18→21:51)
[2017-11-27] MEDS: FOLIC ACID 1 MG TABLET (FP) PO SCH (10:18)
[2017-11-27] MEDS: LISINOPRIL 20 MG TABLET (FP) PO SCH (10:19)
[2017-11-27] MEDS: ZINC SULFATE 220 MG CAPSULE (FP) PO SCH ×2 (10:19→21:51)
[2017-11-27] MEDS: PANTOPRAZOLE 40 MG TABLET (FP) PO SCH (10:19)
[2017-11-27] MEDS: DULoxetine HCL 30 MG CAPSULE.DR (FP) PO SCH (10:19)
[2017-11-27] MEDS: ASCORBIC ACID 500 MG TABLET (FP) PO SCH ×2 (10:19→21:51)
[2017-11-27] MEDS: BACITRACIN 15 GM TUBE TOPICAL OINTMENT TP SCH (10:31)
[2017-11-27] MEDS: CLOPIDOGREL BISULFATE 75 MG TABLET (FP) PO SCH (11:12)
[2017-11-27] MEDS: ASPIRIN 81 MG CHEWABLE TABLETS PO SCH (11:12)
--- NOTE | 2017-11-27 11:34 | PN ---
Progress Note, Physician History of Present Illness: no new issues stable - Current Medication List Current Medications: Active Medications Acetaminophen (Tylenol -) 650 mg PO Q6H PRN PRN Reason: PAIN LEVEL 1-5 Last Admin: 11/22/17 06:43 Dose: 650 mg Amlodipine Besylate (Norvasc -) 10 mg PO DAILY [facility] Last Admin: 11/27/17 10:18 Dose: 10 mg Ascorbic Acid (Vitamin C -) 500 mg PO BID [facility] Last Admin: 11/27/17 10:19 Dose: 500 mg Aspirin (Asa -) 81 mg PO DAILY [facility] Last Admin: 11/27/17 11:12 Dose: 81 mg Atorvastatin Calcium (Lipitor -) 80 mg PO HS [facility] Last Admin: 11/26/17 22:06 Dose: 80 mg Bacitracin (Bacitracin -) 1 applic TP DAILY [facility] Last Admin: 11/27/17 10:31 Dose: 1 applic Carvedilol (Coreg -) 12.5 mg PO BID [facility] Last Admin: 11/27/17 10:18 Dose: 12.5 mg Clopidogrel Bisulfate (Plavix -) 75 mg PO DAILY [facility] Last Admin: 11/27/17 11:12 Dose: 75 mg Docusate Sodium (Colace -) 100 mg PO BID [facility] Last Admin: 11/27/17 10:18 Dose: 100 mg Duloxetine HCl (Cymbalta -) 60 mg PO DAILY [facility] Last Admin: 11/27/17 10:19 Dose: 60 mg Ferrous Sulfate (Feosol -) 325 mg PO DAILY [facility] Last Admin: 11/27/17 10:18 Dose: 325 mg Folic Acid (Folic Acid -) 1 mg PO DAILY [facility] Last Admin: 11/27/17 10:18 Dose: 1 mg Gabapentin (Neurontin -) 400 mg PO TID [facility] Last Admin: 11/27/17 06:48 Dose: 400 mg Meropenem 1 gm/ Dextrose 100 mls @ 200 mls/hr IVPB Q8H-IV [facility] Last Admin: 11/27/17 10:18 Dose: 200 mls/hr Insulin Aspart (Novolog Vial Sliding Scale -) 1 vial SQ ACHS [facility]; Protocol Last Admin: 11/27/17 11:14 Dose: 2 units Insulin Detemir (Levemir Vial) 22 units SQ [facility] Last Admin: 11/26/17 22:07 Dose: Not Given Lisinopril (Prinivil) 20 mg PO DAILY [facility] Last Admin: 11/27/17 10:19 Dose: 20 mg Multivitamins/Minerals/Vitamin C (Tab-A-Vit -) 1 tab PO DAILY [facility] Last Admin: 11/27/17 10:18 Dose: 1 tab Ondansetron HCl (Zofran Injection) 4 mg IVPUSH Q4H PRN PRN Reason: NAUSEA AND/OR VOMITING Oxycodone HCl (Roxicodone -) 5 mg PO Q6H PRN PRN Reason: PAIN LEVEL 1-5 Last Admin: 11/25/17 15:06 Dose: 5 mg Oxycodone HCl (Roxicodone -) 10 mg PO Q6H PRN PRN Reason: PAIN LEVEL 6-10 Last Admin: 11/27/17 04:56 Dose: 10 mg Pantoprazole Sodium (Protonix -) 40 mg PO DAILY [facility] Last Admin: 11/27/17 10:19 Dose: 40 mg Promethazine HCl (Phenergan Injection -) 12.5 mg IVPB Q6H PRN PRN Reason: NAUSEA-FOR RESCUE AFTER 15 MIN Zinc Sulfate (Orazinc -) 220 mg PO BID [facility] Last Admin: 11/27/17 10:19 Dose: 220 mg - Objective Vital Signs: Vital Signs Temperature 98.5 F 11/27/17 10:00 Pulse Rate 98 H 11/27/17 10:00 Respiratory Rate 20 11/27/17 10:00 Blood Pressure 157/83 11/27/17 10:00 O2 Sat by Pulse Oximetry (%) 98 11/26/17 21:00 Constitutional: Yes: No Distress, Calm Cardiovascular: Yes: Regular Rate and Rhythm Respiratory: Yes: Regular, CTA Bilaterally Musculoskeletal: Yes: WNL Extremities: Yes: Other Wound/Incision: Yes: Other (wound vac in place) Neurological: Yes: Alert, Oriented Labs: CBC, BMP 11/27/17 05:45 11/26/17 09:45 INR, PTT INR 1.05 (0.83-1.09) 11/26/17 09:45 Assessment/Plan - Problems (1) Diabetic foot ulcer Code(s): E11.621 - TYPE 2 DIABETES MELLITUS WITH FOOT ULCER; L97.509 - NON- PRESSURE CHRONIC ULCER OTH PRT UNSP FOOT W UNSP SEVERITY (2) Osteomyelitis Code(s): M86.9 - OSTEOMYELITIS, UNSPECIFIED Qualifiers: Osteomyelitis type: unspecified type Osteomyelitis location: foot Laterality: right Qualified Code(s): M86.9 - Osteomyelitis, unspecified (3) Anemia Code(s): D64.9 - ANEMIA, UNSPECIFIED (4) Depression Code(s): F32.9 - MAJOR DEPRESSIVE DISORDER, SINGLE EPISODE, UNSPECIFIED Qualifiers: Depression Type: other depression Qualified Code(s): F32.89 - Other specified depressive episodes (5) Diabetes mellitus Code(s): E11.9 - TYPE 2 DIABETES MELLITUS WITHOUT COMPLICATIONS Qualifiers: Diabetes mellitus type: type 2 Diabetes mellitus senior care insulin use: without senior care use Diabetes mellitus complication status: with circulatory complication Diabetes mellitus complication detail: with peripheral angiopathy with gangrene Qualified Code(s): E11.52 - Type 2 diabetes mellitus with diabetic peripheral angiopathy with gangrene (6) S/P BKA (below knee amputation) unilateral Code(s): Z89.519 - ACQUIRED ABSENCE OF UNSPECIFIED LEG BELOW KNEE (7) S/P vascular bypass Code(s): Z95.828 - PRESENCE OF OTHER VASCULAR IMPLANTS AND GRAFTS (8) HTN (hypertension) Code(s): I10 - ESSENTIAL (PRIMARY) HYPERTENSION Qualifiers: Hypertension type: essential hypertension Qualified Code(s): I10 - Essential (primary) hypertension (9) Hypercholesterolemia Code(s): E78.00 - PURE HYPERCHOLESTEROLEMIA, UNSPECIFIED (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 female with PMH of Uncontrolled DM, PAD s/p Rt fem-tibial bypass, s/p Lt BKA, HTN, HLD, depression and chronic Rt heel ulcer s/p debridement on and course of antibiotics re-admitted with malodorous drainage from Rt heel wound (described as 5X5 cm, with exposed bone) for past few days. Pt currently with wound vac on, +tenderness, elevated ESR. Infected Diabetic Rt heel ulcer/OM Uncontrolled DM PAD s/p RLE bypass s/p Lt BKA HTN HLD plan continue abx wound care plan for debridement on tuesday rest as per the team once debrided will switch to oral
--- NOTE | 2017-11-27 12:44 | PN ---
Progress Note (short form) - Note Progress Note: - Note Progress Note: pt seen/ examined s/p debridement of heel ulcer on wound vac no blood in stools no abd pain or nausea whitish discharge when she urinates no burning Vital Signs - 24 hr Vital Signs - 24 hr 11/26/17 11/26/17 11/26/17 18:05 21:00 22:00 Temperature 98.6 F Pulse Rate 98 H 93 H Respiratory 20 20 20 Rate Blood Pressure 136/93 140/82 O2 Sat by Pulse 98 Oximetry (%) 11/27/17 11/27/17 11/27/17 05:50 09:00 10:00 Temperature 97.8 F 98.5 F Pulse Rate 97 H 98 H Respiratory 20 20 20 Rate Blood Pressure 148/79 157/83 O2 Sat by Pulse 99 Oximetry (%) 11/27/17 15:13 Temperature 98.0 F Pulse Rate 92 H Respiratory 20 Rate Blood Pressure 134/73 O2 Sat by Pulse Oximetry (%) Current Medications Generic Name Dose Route Start Last Admin Trade Name Freq PRN Reason Stop Dose Admin Acetaminophen 650 mg 11/21/17 17:52 11/22/17 06:43 Tylenol - PO 650 mg Q6H PRN Administration PAIN LEVEL 1-5 Amlodipine Besylate 10 mg 11/22/17 10:00 11/27/17 10:18 Norvasc - PO 10 mg DAILY JESSICA Administration Ascorbic Acid 500 mg 11/21/17 22:00 11/27/17 10:19 Vitamin C - PO 500 mg BID JESSICA Administration Aspirin 81 mg 11/22/17 10:00 11/27/17 11:12 Asa - PO 81 mg DAILY JESSICA Administration Atorvastatin Calcium 80 mg 11/21/17 22:00 11/26/17 22:06 Lipitor - PO 80 mg HS JESSICA Administration Bacitracin 1 applic 11/22/17 10:00 11/27/17 10:31 Bacitracin - TP 1 applic DAILY [facility] Administration Carvedilol 12.5 mg 11/21/17 22:00 11/27/17 10:18 Coreg - PO 12.5 mg BID JESSICA Administration Clopidogrel Bisulfate 75 mg 11/22/17 10:00 11/27/17 11:12 Plavix - PO 75 mg DAILY JESSICA Administration Docusate Sodium 100 mg 11/21/17 22:00 11/27/17 10:18 Colace - PO 100 mg BID JESSICA Administration Duloxetine HCl 60 mg 11/22/17 10:00 11/27/17 10:19 Cymbalta - PO 60 mg DAILY [facility] Administration Ferrous Sulfate 325 mg 11/22/17 10:00 11/27/17 10:18 Feosol - PO 325 mg DAILY JESSICA Administration Folic Acid 1 mg 11/22/17 10:00 11/27/17 10:18 Folic Acid - PO 1 mg DAILY [facility]ESS[facility] Administration Gabapentin 400 mg 11/21/17 22:00 11/27/17 13:45 Neurontin - PO 400 mg TID [facility] Administration Meropenem 1 gm/ Dextrose 100 mls @ 200 mls/hr 11/21/17 18:00 11/27/17 10:18 IVPB 200 mls/hr Q8H-IV [facility] Administration Insulin Aspart 1 vial 11/21/17 22:00 11/27/17 11:14 Novolog Vial Sliding Scale - SQ 2 units ACHS [facility] Administration Protocol Insulin Detemir 22 units 11/24/17 12:15 11/26/17 22:07 Levemir Vial SQ Not Given [facility] Lisinopril 20 mg 11/22/17 10:00 11/27/17 10:19 Prinivil PO 20 mg DAILY [facility] Administration Multivitamins/Minerals/Vitamin C 1 tab 11/22/17 10:00 11/27/17 10:18 Tab-A-Vit - PO 1 tab DAILY [facility] Administration Ondansetron HCl 4 mg 11/24/17 12:15 Zofran Injection IVPUSH Q4H PRN NAUSEA AND/OR VOMITING Oxycodone HCl 5 mg 11/22/17 11:55 11/25/17 15:06 Roxicodone - PO 5 mg Q6H PRN Administration PAIN LEVEL 1-5 Oxycodone HCl 10 mg 11/22/17 11:55 11/27/17 04:56 Roxicodone - PO 10 mg Q6H PRN Administration PAIN LEVEL 6-10 Pantoprazole Sodium 40 mg 11/22/17 10:00 11/27/17 10:19 Protonix - PO 40 mg DAILY [facility] Administration Promethazine HCl 12.5 mg 11/21/17 17:52 Phenergan Injection - IVPB Q6H PRN NAUSEA-FOR RESCUE AFTER 15 MIN Zinc Sulfate 220 mg 11/21/17 22:00 11/27/17 10:19 Orazinc - PO 220 mg BID [facility] Administration Laboratory Results - last 24 hr 11/23/17 11/26/17 11/26/17 13:08 16:04 22:05 WBC RBC Hgb Hct MCV MCH MCHC RDW Plt Count MPV POC Glucometer 140 213 Blood Type A POSITIVE Antibody Screen Negative Crossmatch See Detail 11/27/17 11/27/17 11/27/17 05:45 06:47 11:13 WBC 7.7 RBC 2.70 L Hgb 8.1 L Hct 23.7 L MCV 87.7 MCH 30.0 MCHC 34.2 RDW 15.3 Plt Count 376 MPV 7.2 L POC Glucometer 131 195 Blood Type Antibody Screen Crossmatch Physical Constitutional: Yes: No Distress, Comfortable. Eyes: Yes: Conjunctiva Clear Neck: Yes: Supple Cardiovascular: Yes: Regular Rate and Rhythm Respiratory: Yes: Diminished Gastrointestinal: Yes: Soft, NT Edema: No Wound/Incision: Yes: Other (Right heel chronic wound-) s/p left BKA ,foot warm Psychiatric: Yes: Alert Assessment/Plan In summary 52 y.o. female with PMH of Uncontrolled DM, PAD s/p Rt fem-tibial bypass, s/p Lt BKA, HTN, HLD, depression and chronic Rt heel ulcer s/p debridement on and course of antibiotics re-admitted with malodorous drainage from Rt heel wound --with exposed bone) continue abx wound vac placed monitor bp/bgm- decrease Levemir as her sugars are lower side pain control zofran as needed monitor cbc for OR on Tuesday for Integra graft check abd sono- normal xray abd- gas and stool transfuse as needed check UA and culture Problem List - Problems (1) Diabetic foot ulcer Code(s): E11.621 - TYPE 2 DIABETES MELLITUS WITH FOOT ULCER; L97.509 - NON- PRESSURE CHRONIC ULCER OTH PRT UNSP FOOT W UNSP SEVERITY (2) Anemia Code(s): D64.9 - ANEMIA, UNSPECIFIED (3) S/P BKA (below knee amputation) unilateral Code(s): Z89.519 - ACQUIRED ABSENCE OF UNSPECIFIED LEG BELOW KNEE
[2017-11-27] MEDS: ATORVASTATIN CA 80 MG TABLET (FP) PO SCH (21:52)
[2017-11-27] MEDS: INSULIN (LEVEMIR) 100 UNITS/ML UNITS SQ SCH (21:52)
[2017-11-28 00:52] LABS: URINE APPEARANCE CLEAR; URINE BILIRUBIN NEGATIVE (<2.0 mg/dL); URINE COLOR LTYELLOW; URINE GLUCOSE (UA) NEGATIVE (NEGATIVE); URINE KETONE NEGATIVE (NEGATIVE); URINE LEUK ESTERASE NEGATIVE (NEGATIVE); URINE NITRITE NEGATIVE (NEGATIVE); URINE UROBILINOGEN NEGATIVE mg/dL (0.2-1.0)
[2017-11-28 00:54] LABS: URINE PROTEIN 2+ (NEGATIVE)
[2017-11-28 00:58] LABS: EPI CELLS RARE /HPF (FEW); URINE HYALINE CAST 1 /lpf
[2017-11-28] MEDS: MEROPENEM 1 GM in DEXTROSE 5%-WATER 100 ML IVPB SCH ×3 (02:47→18:39)
[2017-11-28] MEDS: oxyCODONE HCL 5 MG TABLET PO PRN (03:11)
[2017-11-28] MEDS: INSULIN SLIDING SCALE (NOVOLOG) 1 VIAL SQ SCH ×4 (06:09→22:12)
[2017-11-28] MEDS: GABAPENTIN 400 MG CAPSULE (FP) PO SCH ×3 (06:09→22:10)
[2017-11-28 08:02] LABS: HEMATOCRIT 24.3 % (32.4-45.2); HEMOGLOBIN 8.2 GM/dL (10.7-15.3); MCH 29.7 pg (25.7-33.7); MCHC 33.6 g/dl (32.0-36.0); MEAN CELL VOLUME 88.4 fl (80-96); MEAN PLT VOLUME 7.2 fl (7.5-11.1); PLATELET COUNT 386 K/MM3 (134-434); RBC 2.75 M/mm3 (3.60-5.2); WHITE BLOOD COUNT 7.8 K/mm3 (4.0-10.0)
[2017-11-28 08:48] LABS: ALBUMIN 2.4 g/dl (3.4-5.0); ALK PHOS 100 U/L (45-117); ANION GAP 5 MMOL/L (8-16); BILIRUBIN,TOTAL 0.5 mg/dL (0.2-1); BLOOD UREA NITROGEN 32 mg/dL (7-18); CALCIUM 8.7 mg/dL (8.5-10.1); CHLORIDE 105 mmol/L (98-107); CO2 28 mmol/L (21-32); CREATININE 0.8 mg/dL (0.55-1.3); GLUCOSE,RANDOM 119 mg/dL (74-106); POTASSIUM 4.5 mmol/L (3.5-5.1); SGOT/AST 22 U/L (15-37); SGPT/ALT 48 U/L (13-61); SODIUM 138 mmol/L (136-145); TOT PROT 6.6 g/dl (6.4-8.2)
[2017-11-28] MEDS ORDERED: PT OWN MED DRAWER 7, Y5N ONE ×2 (10:29→18:30)
[2017-11-28] MEDS: CARVEDILOL 12.5 MG TABLET (FP) PO SCH ×2 (11:18→22:11)
[2017-11-28] MEDS: CLOPIDOGREL BISULFATE 75 MG TABLET (FP) PO SCH (11:19)
[2017-11-28] MEDS: amLODIPine BESYLATE 10 MG TABLET (FP) PO SCH (11:20)
[2017-11-28] MEDS: ZINC SULFATE 220 MG CAPSULE (FP) PO SCH ×2 (11:21→22:10)
[2017-11-28] MEDS: PANTOPRAZOLE 40 MG TABLET (FP) PO SCH (11:23)
[2017-11-28] MEDS: MULTIVITAMINS (DAILY MVI) TABLET (FP) PO SCH (11:23)
[2017-11-28] MEDS: FOLIC ACID 1 MG TABLET (FP) PO SCH (11:23)
[2017-11-28] MEDS: ASCORBIC ACID 500 MG TABLET (FP) PO SCH ×2 (11:23→22:10)
[2017-11-28] MEDS: BACITRACIN 15 GM TUBE TOPICAL OINTMENT TP SCH (11:24)
[2017-11-28] MEDS: DULoxetine HCL 30 MG CAPSULE.DR (FP) PO SCH (11:24)
[2017-11-28] MEDS: ASPIRIN 81 MG CHEWABLE TABLETS PO SCH (11:24)
[2017-11-28] MEDS: FERROUS SO4 325 MG TABLET (FP) PO SCH (11:24)
[2017-11-28] MEDS: DOCUSATE SODIUM 100 MG CAPSULE (FP) PO SCH ×2 (11:24→22:10)
[2017-11-28] MEDS: LISINOPRIL 20 MG TABLET (FP) PO SCH (11:28)
--- NOTE | 2017-11-28 11:40 | PN ---
Progress Note (short form) - Note Progress Note: patient seen and examined Comfortable 4 or later today Nothing by mouth Blood sugar on the low side Patient denies chest pain or shortness of breath Afebrile Vital Signs Temp 98.2 F 11/28/17 06:41 Pulse 93 H 11/28/17 06:41 Resp 18 11/28/17 06:41 BP 138/74 11/28/17 06:41 Pulse Ox 99 11/27/17 21:00 Intake & Output 11/27/17 11/27/17 11/28/17 11:59 23:59 11:59 Intake Total 150 1520 50 Balance 150 1520 50 Intake: IVPB 100 200 Oral 50 1320 50 Other: Voiding Method Bedpan Bedpan Bedpan # Unmeasured Voids Void 2 1 1 Bowel Movement No No Active Medications Acetaminophen (Tylenol -) 650 mg PO Q6H PRN PRN Reason: PAIN LEVEL 1-5 Last Admin: 11/22/17 06:43 Dose: 650 mg Amlodipine Besylate (Norvasc -) 10 mg PO DAILY [facility] Last Admin: 11/28/17 11:20 Dose: 10 mg Ascorbic Acid (Vitamin C -) 500 mg PO BID [facility] Last Admin: 11/28/17 11:23 Dose: Not Given Aspirin (Asa -) 81 mg PO DAILY [facility] Last Admin: 11/28/17 11:24 Dose: Not Given Atorvastatin Calcium (Lipitor -) 80 mg PO HS [facility] Last Admin: 11/27/17 21:52 Dose: 80 mg Bacitracin (Bacitracin -) 1 applic TP DAILY [facility] Last Admin: 11/28/17 11:24 Dose: 1 applic Carvedilol (Coreg -) 12.5 mg PO BID [facility] Last Admin: 11/28/17 11:18 Dose: 12.5 mg Clopidogrel Bisulfate (Plavix -) 75 mg PO DAILY [facility] Last Admin: 11/28/17 11:19 Dose: Not Given Docusate Sodium (Colace -) 100 mg PO BID [facility] Last Admin: 11/28/17 11:24 Dose: Not Given Duloxetine HCl (Cymbalta -) 60 mg PO DAILY [facility] Last Admin: 11/28/17 11:24 Dose: Not Given Ferrous Sulfate (Feosol -) 325 mg PO DAILY [facility] Last Admin: 11/28/17 11:24 Dose: Not Given Folic Acid (Folic Acid -) 1 mg PO DAILY [facility] Last Admin: 11/28/17 11:23 Dose: Not Given Gabapentin (Neurontin -) 400 mg PO TID [facility] Last Admin: 11/28/17 06:09 Dose: 400 mg Meropenem 1 gm/ Dextrose 100 mls @ 200 mls/hr IVPB Q8H-IV [facility] Last Admin: 11/28/17 11:11 Dose: 200 mls/hr Insulin Aspart (Novolog Vial Sliding Scale -) 1 vial SQ ACHS [facility]; Protocol Last Admin: 11/28/17 11:21 Dose: Not Given Insulin Detemir (Levemir Vial) 22 units SQ HS [facility] Last Admin: 11/27/17 21:52 Dose: Not Given Lisinopril (Prinivil) 20 mg PO DAILY [facility] Last Admin: 11/28/17 11:28 Dose: 20 mg Multivitamins/Minerals/Vitamin C (Tab-A-Vit -) 1 tab PO DAILY [facility] Last Admin: 11/28/17 11:23 Dose: Not Given Ondansetron HCl (Zofran Injection) 4 mg IVPUSH Q4H PRN PRN Reason: NAUSEA AND/OR VOMITING Oxycodone HCl (Roxicodone -) 5 mg PO Q6H PRN PRN Reason: PAIN LEVEL 1-5 Last Admin: 11/25/17 15:06 Dose: 5 mg Oxycodone HCl (Roxicodone -) 10 mg PO Q6H PRN PRN Reason: PAIN LEVEL 6-10 Last Admin: 11/28/17 03:11 Dose: 10 mg Pantoprazole Sodium (Protonix -) 40 mg PO DAILY [facility] Last Admin: 11/28/17 11:23 Dose: Not Given Promethazine HCl (Phenergan Injection -) 12.5 mg IVPB Q6H PRN PRN Reason: NAUSEA-FOR RESCUE AFTER 15 MIN Zinc Sulfate (Orazinc -) 220 mg PO BID [facility] Last Admin: 11/28/17 11:21 Dose: Not Given CBC, BMP 11/28/17 07:10 11/28/17 07:10 Microbiology 11/27/17 13:20 Urine Culture - Final Urine - Urine Clean Catch NO GROWTH OBTAINED Physical Constitutional: Yes: No Distress, Comfortable. Eyes: Yes: Conjunctiva Clear Neck: Yes: Supple Cardiovascular: Yes: Regular Rate and Rhythm Respiratory: Yes: Diminished Gastrointestinal: Yes: Soft/ non tender Edema: No Wound/Incision: Yes: Other (Right heel chronic wound-) s/p left BKA ,foot warm Psychiatric: Yes: Alert Assessment/Plan In summary 52 y.o. female with PMH of Uncontrolled DM, PAD s/p Rt fem-tibial bypass, s/p Lt BKA, HTN, HLD, depression and chronic Rt heel ulcer s/p debridement on and course of antibiotics re-admitted with malodorous drainage from Rt heel wound --with exposed bone) continue abx wound vac monitor bp/bgm pain control for OR today for Integra graft for better healing. we'll start on mild hydration Monitor blood sugar will follow discussed with nursing staff also Problem List - Problems (1) Diabetic foot ulcer Code(s): E11.621 - TYPE 2 DIABETES MELLITUS WITH FOOT ULCER; L97.509 - NON- PRESSURE CHRONIC ULCER OTH PRT UNSP FOOT W UNSP SEVERITY (2) Anemia Code(s): D64.9 - ANEMIA, UNSPECIFIED (3) S/P BKA (below knee amputation) unilateral Code(s): Z89.519 - ACQUIRED ABSENCE OF UNSPECIFIED LEG BELOW KNEE
--- NOTE | 2017-11-28 12:26 | PN ---
Progress Note, Physician History of Present Illness: stable awaiting for procedure - Current Medication List Current Medications: Active Medications Acetaminophen (Tylenol -) 650 mg PO Q6H PRN PRN Reason: PAIN LEVEL 1-5 Last Admin: 11/22/17 06:43 Dose: 650 mg Amlodipine Besylate (Norvasc -) 10 mg PO DAILY [facility] Last Admin: 11/28/17 11:20 Dose: 10 mg Ascorbic Acid (Vitamin C -) 500 mg PO BID [facility] Last Admin: 11/28/17 11:23 Dose: Not Given Aspirin (Asa -) 81 mg PO DAILY [facility] Last Admin: 11/28/17 11:24 Dose: Not Given Atorvastatin Calcium (Lipitor -) 80 mg PO HS [facility] Last Admin: 11/27/17 21:52 Dose: 80 mg Bacitracin (Bacitracin -) 1 applic TP DAILY [facility] Last Admin: 11/28/17 11:24 Dose: 1 applic Carvedilol (Coreg -) 12.5 mg PO BID [facility] Last Admin: 11/28/17 11:18 Dose: 12.5 mg Clopidogrel Bisulfate (Plavix -) 75 mg PO DAILY [facility] Last Admin: 11/28/17 11:19 Dose: Not Given Docusate Sodium (Colace -) 100 mg PO BID [facility] Last Admin: 11/28/17 11:24 Dose: Not Given Duloxetine HCl (Cymbalta -) 60 mg PO DAILY [facility] Last Admin: 11/28/17 11:24 Dose: Not Given Ferrous Sulfate (Feosol -) 325 mg PO DAILY [facility] Last Admin: 11/28/17 11:24 Dose: Not Given Folic Acid (Folic Acid -) 1 mg PO DAILY [facility] Last Admin: 11/28/17 11:23 Dose: Not Given Gabapentin (Neurontin -) 400 mg PO TID [facility] Last Admin: 11/28/17 06:09 Dose: 400 mg Meropenem 1 gm/ Dextrose 100 mls @ 200 mls/hr IVPB Q8H-IV [facility] Last Admin: 11/28/17 11:11 Dose: 200 mls/hr Dextrose/Sodium Chloride (D5-1/2ns -) 1,000 mls @ 83 mls/hr IV [facility] Insulin Aspart (Novolog Vial Sliding Scale -) 1 vial SQ ACHS [facility]; Protocol Last Admin: 11/28/17 11:21 Dose: Not Given Insulin Detemir (Levemir Vial) 22 units SQ HS [facility] Last Admin: 11/27/17 21:52 Dose: Not Given Lisinopril (Prinivil) 20 mg PO DAILY [facility] Last Admin: 11/28/17 11:28 Dose: 20 mg Multivitamins/Minerals/Vitamin C (Tab-A-Vit -) 1 tab PO DAILY [facility] Last Admin: 11/28/17 11:23 Dose: Not Given Ondansetron HCl (Zofran Injection) 4 mg IVPUSH Q4H PRN PRN Reason: NAUSEA AND/OR VOMITING Oxycodone HCl (Roxicodone -) 5 mg PO Q6H PRN PRN Reason: PAIN LEVEL 1-5 Last Admin: 11/25/17 15:06 Dose: 5 mg Pantoprazole Sodium (Protonix -) 40 mg PO DAILY [facility] Last Admin: 11/28/17 11:23 Dose: Not Given Promethazine HCl (Phenergan Injection -) 12.5 mg IVPB Q6H PRN PRN Reason: NAUSEA-FOR RESCUE AFTER 15 MIN Zinc Sulfate (Orazinc -) 220 mg PO BID [facility] Last Admin: 11/28/17 11:21 Dose: Not Given - Objective Vital Signs: Vital Signs Temperature 98.2 F 11/28/17 06:41 Pulse Rate 93 H 11/28/17 06:41 Respiratory Rate 18 11/28/17 06:41 Blood Pressure 138/74 11/28/17 06:41 O2 Sat by Pulse Oximetry (%) 99 11/27/17 21:00 Constitutional: Yes: No Distress, Calm Cardiovascular: Yes: Regular Rate and Rhythm Respiratory: Yes: Regular, CTA Bilaterally Gastrointestinal: Yes: Normal Bowel Sounds, Soft Musculoskeletal: Yes: WNL Extremities: Yes: Other Wound/Incision: Yes: Other (wound vac in place) Neurological: Yes: Alert, Oriented Psychiatric: Yes: Alert, Oriented Labs: CBC, BMP 11/28/17 07:10 11/28/17 07:10 INR, PTT INR 1.05 (0.83-1.09) 11/26/17 09:45 Assessment/Plan - Problems (1) Diabetic foot ulcer Code(s): E11.621 - TYPE 2 DIABETES MELLITUS WITH FOOT ULCER; L97.509 - NON- PRESSURE CHRONIC ULCER OTH PRT UNSP FOOT W UNSP SEVERITY (2) Osteomyelitis Code(s): M86.9 - OSTEOMYELITIS, UNSPECIFIED Qualifiers: Osteomyelitis type: unspecified type Osteomyelitis location: foot Laterality: right Qualified Code(s): M86.9 - Osteomyelitis, unspecified (3) Anemia Code(s): D64.9 - ANEMIA, UNSPECIFIED (4) Depression Code(s): F32.9 - MAJOR DEPRESSIVE DISORDER, SINGLE EPISODE, UNSPECIFIED Qualifiers: Depression Type: other depression Qualified Code(s): F32.89 - Other specified depressive episodes (5) Diabetes mellitus Code(s): E11.9 - TYPE 2 DIABETES MELLITUS WITHOUT COMPLICATIONS Qualifiers: Diabetes mellitus type: type 2 Diabetes mellitus terminal system operator insulin use: without intermediate use Diabetes mellitus complication status: with circulatory complication Diabetes mellitus complication detail: with peripheral angiopathy with gangrene Qualified Code(s): E11.52 - Type 2 diabetes mellitus with diabetic peripheral angiopathy with gangrene (6) S/P BKA (below knee amputation) unilateral Code(s): Z89.519 - ACQUIRED ABSENCE OF UNSPECIFIED LEG BELOW KNEE (7) S/P vascular bypass Code(s): Z95.828 - PRESENCE OF OTHER VASCULAR IMPLANTS AND GRAFTS (8) HTN (hypertension) Code(s): I10 - ESSENTIAL (PRIMARY) HYPERTENSION Qualifiers: Hypertension type: essential hypertension Qualified Code(s): I10 - Essential (primary) hypertension (9) Hypercholesterolemia Code(s): E78.00 - PURE HYPERCHOLESTEROLEMIA, UNSPECIFIED (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 female with PMH of Uncontrolled DM, PAD s/p Rt fem-tibial bypass, s/p Lt BKA, HTN, HLD, depression and chronic Rt heel ulcer s/p debridement on and course of antibiotics re-admitted with malodorous drainage from Rt heel wound (described as 5X5 cm, with exposed bone) for past few days. Pt currently with wound vac on, +tenderness, elevated ESR. Infected Diabetic Rt heel ulcer/OM Uncontrolled DM PAD s/p RLE bypass s/p Lt BKA HTN HLD plan continue abx wound care await for debridement rest as per the team will switch to oral after debridement
[2017-11-28] MEDS ORDERED: DEXTROSE 5%-0.45% SALINE 1,000 ML IV SCH ×2 (13:00→17:35)
[2017-11-28] MEDS ORDERED: MIDAZOLAM HCL 2 MG/2 ML SINGLE DOSE VIAL ONE (16:10)
[2017-11-28] MEDS ORDERED: PROPOFOL 20 ML ONE (16:10)
[2017-11-28] MEDS ORDERED: SUCCINYLCHOLINE CHLORIDE 200 MG/10 ML VIAL ONE (16:11)
[2017-11-28] MEDS ORDERED: LIDOCAINE HCL 1%, 10 MG/ML (20ML VIAL) PNB ONE (16:15)
--- NOTE | 2017-11-28 17:16 | OP ---
Operative Note - Note: Operative Date: 11/28/17 Pre-Operative Diagnosis: RIght heel wound Operation: Debridement right heel wound. Placement of biologic dressing - Integra Bilayer membrane Findings: Right heel wound extending to calcaneus with granulating base. Implants: Integra bilayer matrix Post-Operative Diagnosis: Same as Pre-op Surgeon: Carlos Hare Anesthesiologist/HAND CARVER: Mariya Perez Anesthesia: Fractional
[2017-11-28] MEDS ORDERED: ONDANSETRON 4 MG/2 ML VIAL IVPUSH PRN (17:35)
[2017-11-28] MEDS ORDERED: SILVER NITRATE 75% APPLIC STCK 1 PKT EACH TP ONE (17:35)
[2017-11-28] MEDS ORDERED: ACETAMINOPHEN 325 MG TABLET (FP) PO PRN (17:35)
[2017-11-28] MEDS ORDERED: PROMETHAZINE HCL 25 MG/1 ML VIAL IVPB PRN (17:35)
[2017-11-28] MEDS ORDERED: oxyCODONE HCL 5 MG TABLET PO PRN (17:35)
[2017-11-28] MEDS ORDERED: oxyCODONE HCL 5 MG TABLET PO ONE (20:29)
[2017-11-28] MEDS: ATORVASTATIN CA 80 MG TABLET (FP) PO SCH (22:10)
[2017-11-28] MEDS: INSULIN (LEVEMIR) 100 UNITS/ML UNITS SQ SCH (22:11)
--- NOTE | 2017-11-28 22:45 | OP ---
DATE OF OPERATION: 11/28/2017 SURGEON: Amauri Willoughby MD PROCEDURE: Debridement of right heel wound with placement of biologic dressing. PREOPERATIVE DIAGNOSIS: Right heel wound with exposed bone. POSTOPERATIVE DIAGNOSIS: Right heel wound with exposed bone. ANESTHESIA: Fractional. ANESTHESIOLOGIST: Mariya Perez DO OPERATIVE FINDINGS: The right medial heel wound extended down to the calcaneus. There was a layer of granulation tissue at the base of the wound. There was no evidence of infection or necrotic tissue. OPERATIVE PROCEDURE: Following routine patient identification with side and site verification, intravenous sedation was established. The right foot and calf were prepped with Betadine solution. Next, 1% lidocaine was infiltrated in the posteromedial aspect of the right ankle to affect a nerve block. The heel wound was debrided with a curette to remove loose, exudating granulation tissue. The Integra material was then prepared in a syringe with saline and applied to the base of the wound with a syringe. The bi-layer membrane was then trimmed and sutured to the skin to cover the wound using 4-0 chromic. An Adaptic was placed over the graft, and then, a VAC dressing was applied and attached to 75 mm of suction. Patient was then transported to the recovery room in stable condition. AMAURI WILLOUGHBY M.D. [id number]
[2017-11-29] MEDS: MEROPENEM 1 GM in DEXTROSE 5%-WATER 100 ML IVPB SCH ×3 (02:23→17:13)
[2017-11-29] MEDS: oxyCODONE HCL 5 MG TABLET PO PRN ×2 (02:38→10:52)
[2017-11-29] MEDS: GABAPENTIN 400 MG CAPSULE (FP) PO SCH ×3 (05:35→22:20)
[2017-11-29] MEDS: INSULIN SLIDING SCALE (NOVOLOG) 1 VIAL SQ SCH ×4 (06:07→22:21)
--- NOTE | 2017-11-29 08:43 | PN ---
Progress Note (short form) - Note Progress Note: Surgery POD #1 Rpt Debridement heel wound. Placement of biologic dressing - Integra Bilayer membrane. Patient seen and examined at bedside c/o pain radiating from posterior thigh into lower leg, unchanged from her baseline. She denies any new or worsening symptoms. She denies any CP,SOB, N/V Fever or chills. Vital Signs Temp 97.8 F 11/29/17 13:37 Pulse 90 11/29/17 13:37 Resp 18 11/29/17 13:37 BP 129/66 11/29/17 13:37 Pulse Ox 100 11/29/17 09:00 Intake & Output 11/28/17 11/29/17 11/29/17 23:59 11:59 23:59 Intake Total 883 700 440 Balance 883 700 440 Intake: IV 283 600 D5-1/2Ns - 1,000 ml @ 83 600 mls/hr IV ASDIR JESSICA Rx#: [id number] IVPB 100 100 Oral 600 340 Other: Voiding Method Bedpan Bedpan Bedpan # Unmeasured Voids Void 1 3 2 Bowel Movement No No No CBC, BMP 11/28/17 07:10 11/28/17 07:10 PE: A&Ox3, NAD Unlabored resp on RA Right LE well scared incision, dressings c/d/i with surrounding tissue intact and no tracking erythema, no evidence of collection or d/c. Leg and foot warm and well perfused with Palpable thrill over anterior distal 3rd of the tibia where graft crosses. Vac on right heel in good position, no evidence of air leak. Problem List - Problems (1) Open wound of heel Assessment/Plan: POD #1 right heel Re-debridement with wound vac in place and placement of integra graft. 1) continue vac changes per schedule 2) ABX per ID 3) pain mngt Code(s): S91.309A - UNSPECIFIED OPEN WOUND, UNSPECIFIED FOOT, INITIAL ENCOUNTER
--- NOTE | 2017-11-29 08:47 | PN ---
Progress Note (short form) - Note Progress Note: Post op day#1.S/P debredment of right heel wound with a biologic graft placement under MAc uneventful.Patient stable.No any anesthesia related problem.Patient Dc from the anesthesia care.
[2017-11-29] MEDS: PANTOPRAZOLE 40 MG TABLET (FP) PO SCH (10:50)
[2017-11-29] MEDS: DULoxetine HCL 30 MG CAPSULE.DR (FP) PO SCH (10:50)
[2017-11-29] MEDS: ASCORBIC ACID 500 MG TABLET (FP) PO SCH ×2 (10:50→22:19)
[2017-11-29] MEDS: FERROUS SO4 325 MG TABLET (FP) PO SCH (10:50)
[2017-11-29] MEDS: MULTIVITAMINS (DAILY MVI) TABLET (FP) PO SCH (10:50)
[2017-11-29] MEDS: DOCUSATE SODIUM 100 MG CAPSULE (FP) PO SCH ×2 (10:50→22:19)
[2017-11-29] MEDS: ZINC SULFATE 220 MG CAPSULE (FP) PO SCH ×2 (10:50→22:30)
[2017-11-29] MEDS: CLOPIDOGREL BISULFATE 75 MG TABLET (FP) PO SCH (10:50)
[2017-11-29] MEDS: FOLIC ACID 1 MG TABLET (FP) PO SCH (10:50)
[2017-11-29] MEDS: ASPIRIN 81 MG CHEWABLE TABLETS PO SCH (10:51)
[2017-11-29] MEDS: amLODIPine BESYLATE 10 MG TABLET (FP) PO SCH (10:56)
[2017-11-29] MEDS: CARVEDILOL 12.5 MG TABLET (FP) PO SCH ×2 (10:56→22:50)
[2017-11-29] MEDS: LISINOPRIL 20 MG TABLET (FP) PO SCH (10:56)
[2017-11-29] MEDS: BACITRACIN 15 GM TUBE TOPICAL OINTMENT TP SCH (11:00)
[2017-11-29] MEDS ORDERED: INSULIN (NOVOLOG) ASPART 100 UNITS/ML 10ML VIAL ONE (11:08)
--- NOTE | 2017-11-29 12:34 | PN ---
Progress Note (short form) - Note Progress Note: - on wound vac no blood in stools no abd pain or nausea c/o foot pain s/p debridement and graft placement Vital Signs - 24 hr 11/29/17 11/29/17 11/29/17 02:00 02:21 06:00 Temperature 98.3 F 97 F L 97.9 F Pulse Rate 97 H 59 L 96 H Respiratory 18 18 18 Rate Blood Pressure 156/77 150/59 L 143/67 O2 Sat by Pulse Oximetry (%) 11/29/17 11/29/17 11/29/17 09:00 10:00 13:37 Temperature 97.7 F 97.8 F Pulse Rate 92 H 90 Respiratory 18 18 Rate Blood Pressure 144/70 129/66 O2 Sat by Pulse 100 Oximetry (%) 11/29/17 18:52 Temperature 98.0 F Pulse Rate 94 H Respiratory 18 Rate Blood Pressure 169/78 O2 Sat by Pulse Oximetry (%) Current Medications Generic Name Dose Route Start Last Admin Trade Name Freq PRN Reason Stop Dose Admin Acetaminophen 650 mg 11/28/17 17:35 Tylenol - PO Q6H PRN PAIN LEVEL 1-5 Amlodipine Besylate 10 mg 11/29/17 10:00 11/29/17 10:56 Norvasc - PO 10 mg DAILY JESSICA Administration Ascorbic Acid 500 mg 11/28/17 22:00 11/29/17 10:50 Vitamin C - PO 500 mg BID JESS[facility] Administration Aspirin 81 mg 11/29/17 10:00 11/29/17 10:51 Asa - PO 81 mg DAILY [facility] Administration Atorvastatin Calcium 80 mg 11/28/17 22:00 11/28/17 22:10 Lipitor - PO 80 mg HS JESSICA Administration Bacitracin 1 applic 11/29/17 10:00 11/29/17 11:00 Bacitracin - TP Not Given DAILY JESS[facility] Carvedilol 12.5 mg 11/28/17 22:00 11/29/17 10:56 Coreg - PO 12.5 mg BID J[facility] Administration Clopidogrel Bisulfate 75 mg 11/29/17 10:00 11/29/17 10:50 Plavix - PO 75 mg DAILY [facility] Administration Docusate Sodium 100 mg 11/28/17 22:00 11/29/17 10:50 Colace - PO 100 mg BID [facility] Administration Duloxetine HCl 60 mg 11/29/17 10:00 11/29/17 10:50 Cymbalta - PO 60 mg DAILY [facility] Administration Ferrous Sulfate 325 mg 11/29/17 10:00 11/29/17 10:50 Feosol - PO 325 mg DAILY [facility] Administration Folic Acid 1 mg 11/29/17 10:00 11/29/17 10:50 Folic Acid - PO 1 mg DAILY [facility] Administration Gabapentin 400 mg 11/28/17 22:00 11/29/17 14:42 Neurontin - PO 400 mg TID [facility] Administration Meropenem 1 gm/ Dextrose 100 mls @ 200 mls/hr 11/28/17 18:00 11/29/17 17:13 IVPB 200 mls/hr Q8H-IV [facility] Administration Insulin Aspart 1 vial 11/28/17 22:00 11/29/17 17:15 Novolog Vial Sliding Scale - SQ Not Given ACHS [facility] Protocol Insulin Detemir 22 units 11/28/17 22:00 11/28/17 22:11 Levemir Vial SQ 22 units HS [facility] Administration Lisinopril 20 mg 11/29/17 10:00 11/29/17 10:56 Prinivil PO 20 mg DAILY [facility] Administration Multivitamins/Minerals/Vitamin C 1 tab 11/29/17 10:00 11/29/17 10:50 Tab-A-Vit - PO 1 tab DAILY [facility] Administration Ondansetron HCl 4 mg 11/28/17 17:35 11/29/17 18:11 Zofran Injection IVPUSH 4 mg Q4H PRN Administration NAUSEA AND/OR VOMITING Oxycodone HCl 5 mg 11/28/17 17:35 11/28/17 19:42 Roxicodone - PO 5 mg Q6H PRN Administration PAIN LEVEL 1-5 Oxycodone HCl 10 mg 11/29/17 02:30 11/29/17 10:52 Roxicodone - PO 10 mg Q6H PRN Administration PAIN LEVEL 6-10 Pantoprazole Sodium 40 mg 11/29/17 10:00 11/29/17 10:50 Protonix - PO 40 mg DAILY [facility] Administration Promethazine HCl 12.5 mg 11/28/17 17:35 Phenergan Injection - IVPB Q6H PRN NAUSEA-FOR RESCUE AFTER 15 MIN Zinc Sulfate 220 mg 11/28/17 22:00 11/29/17 10:50 Orazinc - PO 220 mg BID [facility] Administration Laboratory Results - last 24 hr 11/28/17 11/28/17 11/29/17 17:56 22:06 05:36 POC Glucometer 112 252 164 11/29/17 11/29/17 11/29/17 11:11 17:14 20:56 POC Glucometer 180 130 147 Physical Constitutional: Yes: No Distress, Comfortable. Eyes: Yes: Conjunctiva Clear Neck: Yes: Supple Cardiovascular: Yes: Regular Rate and Rhythm Respiratory: Yes: Diminished Gastrointestinal: Yes: Soft, NT Edema: No Wound/Incision: Yes: Other (Right heel chronic wound-) s/p left BKA ,foot warm Psychiatric: Yes: Alert Assessment/Plan In summary 52 y.o. female with PMH of Uncontrolled DM, PAD s/p Rt fem-tibial bypass, s/p Lt BKA, HTN, HLD, depression and chronic Rt heel ulcer s/p debridement on and course of antibiotics re-admitted with malodorous drainage from Rt heel wound --with exposed bone) continue abx wound vac placed s/p graft placement and ebridement monitor bp/bgm pain control zofran as needed monitor cbc check pelvic sono Problem List - Problems (1) Diabetic foot ulcer Code(s): E11.621 - TYPE 2 DIABETES MELLITUS WITH FOOT ULCER; L97.509 - NON- PRESSURE CHRONIC ULCER OTH PRT UNSP FOOT W UNSP SEVERITY (2) Anemia Code(s): D64.9 - ANEMIA, UNSPECIFIED (3) S/P BKA (below knee amputation) unilateral Code(s): Z89.519 - ACQUIRED ABSENCE OF UNSPECIFIED LEG BELOW KNEE
--- NOTE | 2017-11-29 14:58 | PN ---
Progress Note, Physician History of Present Illness: patient stable no new issues post op - Current Medication List Current Medications: Active Medications Acetaminophen (Tylenol -) 650 mg PO Q6H PRN PRN Reason: PAIN LEVEL 1-5 Amlodipine Besylate (Norvasc -) 10 mg PO DAILY [facility] Last Admin: 11/29/17 10:56 Dose: 10 mg Ascorbic Acid (Vitamin C -) 500 mg PO BID [facility] Last Admin: 11/29/17 10:50 Dose: 500 mg Aspirin (Asa -) 81 mg PO DAILY [facility] Last Admin: 11/29/17 10:51 Dose: 81 mg Atorvastatin Calcium (Lipitor -) 80 mg PO HS [facility] Last Admin: 11/28/17 22:10 Dose: 80 mg Bacitracin (Bacitracin -) 1 applic TP DAILY [facility] Last Admin: 11/29/17 11:00 Dose: Not Given Carvedilol (Coreg -) 12.5 mg PO BID [facility] Last Admin: 11/29/17 10:56 Dose: 12.5 mg Clopidogrel Bisulfate (Plavix -) 75 mg PO DAILY [facility] Last Admin: 11/29/17 10:50 Dose: 75 mg Docusate Sodium (Colace -) 100 mg PO BID [facility] Last Admin: 11/29/17 10:50 Dose: 100 mg Duloxetine HCl (Cymbalta -) 60 mg PO DAILY [facility] Last Admin: 11/29/17 10:50 Dose: 60 mg Ferrous Sulfate (Feosol -) 325 mg PO DAILY [facility] Last Admin: 11/29/17 10:50 Dose: 325 mg Folic Acid (Folic Acid -) 1 mg PO DAILY [facility] Last Admin: 11/29/17 10:50 Dose: 1 mg Gabapentin (Neurontin -) 400 mg PO TID [facility] Last Admin: 11/29/17 14:42 Dose: 400 mg Meropenem 1 gm/ Dextrose 100 mls @ 200 mls/hr IVPB Q8H-IV [facility] Last Admin: 11/29/17 10:51 Dose: 200 mls/hr Insulin Aspart (Novolog Vial Sliding Scale -) 1 vial SQ [facility]; Protocol Last Admin: 11/29/17 11:12 Dose: 2 units Insulin Detemir (Levemir Vial) 22 units SQ HS [facility] Last Admin: 11/28/17 22:11 Dose: 22 units Lisinopril (Prinivil) 20 mg PO DAILY [facility] Last Admin: 11/29/17 10:56 Dose: 20 mg Multivitamins/Minerals/Vitamin C (Tab-A-Vit -) 1 tab PO DAILY [facility] Last Admin: 11/29/17 10:50 Dose: 1 tab Ondansetron HCl (Zofran Injection) 4 mg IVPUSH Q4H PRN PRN Reason: NAUSEA AND/OR VOMITING Oxycodone HCl (Roxicodone -) 5 mg PO Q6H PRN PRN Reason: PAIN LEVEL 1-5 Last Admin: 11/28/17 19:42 Dose: 5 mg Oxycodone HCl (Roxicodone -) 10 mg PO Q6H PRN PRN Reason: PAIN LEVEL 6-10 Last Admin: 11/29/17 10:52 Dose: 10 mg Pantoprazole Sodium (Protonix -) 40 mg PO DAILY [facility] Last Admin: 11/29/17 10:50 Dose: 40 mg Promethazine HCl (Phenergan Injection -) 12.5 mg IVPB Q6H PRN PRN Reason: NAUSEA-FOR RESCUE AFTER 15 MIN Zinc Sulfate (Orazinc -) 220 mg PO BID [facility] Last Admin: 11/29/17 10:50 Dose: 220 mg - Objective Vital Signs: Vital Signs Temperature 97.8 F 11/29/17 13:37 Pulse Rate 90 11/29/17 13:37 Respiratory Rate 18 11/29/17 13:37 Blood Pressure 129/66 11/29/17 13:37 O2 Sat by Pulse Oximetry (%) 100 11/28/17 21:00 Constitutional: Yes: No Distress, Calm Cardiovascular: Yes: Regular Rate and Rhythm Respiratory: Yes: Regular, CTA Bilaterally Gastrointestinal: Yes: Normal Bowel Sounds, Soft Musculoskeletal: Yes: WNL Extremities: Yes: Other Wound/Incision: Yes: Other (wound vac in place) Neurological: Yes: Alert, Oriented Psychiatric: Yes: Alert, Oriented Labs: CBC, BMP 11/28/17 07:10 11/28/17 07:10 INR, PTT INR 1.05 (0.83-1.09) 11/26/17 09:45 Assessment/Plan - Problems (1) Diabetic foot ulcer Code(s): E11.621 - TYPE 2 DIABETES MELLITUS WITH FOOT ULCER; L97.509 - NON- PRESSURE CHRONIC ULCER OTH PRT UNSP FOOT W UNSP SEVERITY (2) Osteomyelitis Code(s): M86.9 - OSTEOMYELITIS, UNSPECIFIED Qualifiers: Osteomyelitis type: unspecified type Osteomyelitis location: foot Laterality: right Qualified Code(s): M86.9 - Osteomyelitis, unspecified (3) Anemia Code(s): D64.9 - ANEMIA, UNSPECIFIED (4) Depression Code(s): F32.9 - MAJOR DEPRESSIVE DISORDER, SINGLE EPISODE, UNSPECIFIED Qualifiers: Depression Type: other depression Qualified Code(s): F32.89 - Other specified depressive episodes (5) Diabetes mellitus Code(s): E11.9 - TYPE 2 DIABETES MELLITUS WITHOUT COMPLICATIONS Qualifiers: Diabetes mellitus type: type 2 Diabetes mellitus 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 insulin use: without 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 use Diabetes mellitus complication status: with circulatory complication Diabetes mellitus complication detail: with peripheral angiopathy with gangrene Qualified Code(s): E11.52 - Type 2 diabetes mellitus with diabetic peripheral angiopathy with gangrene (6) S/P BKA (below knee amputation) unilateral Code(s): Z89.519 - ACQUIRED ABSENCE OF UNSPECIFIED LEG BELOW KNEE (7) S/P vascular bypass Code(s): Z95.828 - PRESENCE OF OTHER VASCULAR IMPLANTS AND GRAFTS (8) HTN (hypertension) Code(s): I10 - ESSENTIAL (PRIMARY) HYPERTENSION Qualifiers: Hypertension type: essential hypertension Qualified Code(s): I10 - Essential (primary) hypertension (9) Hypercholesterolemia Code(s): E78.00 - PURE HYPERCHOLESTEROLEMIA, UNSPECIFIED (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 female with PMH of Uncontrolled DM, PAD s/p Rt fem-tibial bypass, s/p Lt BKA, HTN, HLD, depression and chronic Rt heel ulcer s/p debridement on and course of antibiotics re-admitted with malodorous drainage from Rt heel wound (described as 5X5 cm, with exposed bone) for past few days. Pt currently with wound vac on, +tenderness, elevated ESR. Infected Diabetic Rt heel ulcer/OM Uncontrolled DM PAD s/p RLE bypass s/p Lt BKA HTN HLD plan will change abx to doxy tomorrow rest continue current mgmt wound care
[2017-11-29] MEDS ORDERED: PT OWN MED DRAWER 7, Y5N ONE (17:03)
[2017-11-29] MEDS: INSULIN (LEVEMIR) 100 UNITS/ML UNITS SQ SCH (22:20)
[2017-11-29] MEDS: ATORVASTATIN CA 80 MG TABLET (FP) PO SCH (22:22)
[2017-11-30] MEDS ORDERED: PT OWN MED DRAWER 7, Y5N ONE (02:29)
[2017-11-30] MEDS: MEROPENEM 1 GM in DEXTROSE 5%-WATER 100 ML IVPB SCH ×2 (02:46→09:24)
[2017-11-30] MEDS: GABAPENTIN 400 MG CAPSULE (FP) PO SCH ×3 (06:06→21:45)
[2017-11-30] MEDS: INSULIN SLIDING SCALE (NOVOLOG) 1 VIAL SQ SCH ×4 (06:41→21:55)
[2017-11-30 07:07] LABS: MCH 29.4 pg (25.7-33.7); MCHC 33.4 g/dl (32.0-36.0); MEAN PLT VOLUME 7.3 fl (7.5-11.1); PLATELET COUNT 353 K/MM3 (134-434); RBC 2.73 M/mm3 (3.60-5.2); RDW 15.3 % (11.6-15.6); WHITE BLOOD COUNT 7.4 K/mm3 (4.0-10.0)
[2017-11-30 07:31] LABS: ANION GAP 6 MMOL/L (8-16); BLOOD UREA NITROGEN 22 mg/dL (7-18); CALCIUM 8.7 mg/dL (8.5-10.1); CHLORIDE 106 mmol/L (98-107); CO2 28 mmol/L (21-32); CREATININE 0.6 mg/dL (0.55-1.3); GLUCOSE,RANDOM 118 mg/dL (74-106); POTASSIUM 4.5 mmol/L (3.5-5.1); SODIUM 140 mmol/L (136-145)
[2017-11-30] MEDS: CARVEDILOL 12.5 MG TABLET (FP) PO SCH ×2 (09:29→21:45)
[2017-11-30] MEDS: PANTOPRAZOLE 40 MG TABLET (FP) PO SCH (09:29)
[2017-11-30] MEDS: amLODIPine BESYLATE 10 MG TABLET (FP) PO SCH (09:29)
[2017-11-30] MEDS: ASPIRIN 81 MG CHEWABLE TABLETS PO SCH (09:29)
[2017-11-30] MEDS: DULoxetine HCL 30 MG CAPSULE.DR (FP) PO SCH (09:29)
[2017-11-30] MEDS: FERROUS SO4 325 MG TABLET (FP) PO SCH (09:29)
[2017-11-30] MEDS: CLOPIDOGREL BISULFATE 75 MG TABLET (FP) PO SCH (09:29)
[2017-11-30] MEDS: FOLIC ACID 1 MG TABLET (FP) PO SCH (09:29)
[2017-11-30] MEDS: ZINC SULFATE 220 MG CAPSULE (FP) PO SCH ×2 (09:30→21:45)
[2017-11-30] MEDS: MULTIVITAMINS (DAILY MVI) TABLET (FP) PO SCH (09:30)
[2017-11-30] MEDS: DOCUSATE SODIUM 100 MG CAPSULE (FP) PO SCH ×2 (09:30→21:45)
[2017-11-30] MEDS: ASCORBIC ACID 500 MG TABLET (FP) PO SCH ×2 (09:30→21:45)
[2017-11-30] MEDS: LISINOPRIL 20 MG TABLET (FP) PO SCH (09:30)
[2017-11-30] MEDS: BACITRACIN 15 GM TUBE TOPICAL OINTMENT TP SCH (09:30)
--- NOTE | 2017-11-30 11:52 | PN ---
Progress Note (short form) - Note Progress Note: - on wound vac no blood in stools no abd pain or nausea c/o foot pain-- better on pain meds s/p debridement and graft placement Vital Signs - 24 hr 11/29/17 11/29/17 11/29/17 13:37 18:52 21:00 Temperature 97.8 F 98.0 F Pulse Rate 90 94 H Respiratory 18 18 Rate Blood Pressure 129/66 169/78 O2 Sat by Pulse 98 Oximetry (%) 11/29/17 11/30/17 11/30/17 22:00 02:00 05:57 Temperature 98.2 F 98.5 F 98.2 F Pulse Rate 89 90 99 H Respiratory 18 18 18 Rate Blood Pressure 133/69 144/67 150/72 O2 Sat by Pulse Oximetry (%) 11/30/17 11/30/17 09:00 09:19 Temperature 98 F Pulse Rate 100 H Respiratory 18 18 Rate Blood Pressure 144/71 O2 Sat by Pulse 97 Oximetry (%) Current Medications Generic Name Dose Route Start Last Admin Trade Name Freq PRN Reason Stop Dose Admin Acetaminophen 650 mg 11/28/17 17:35 Tylenol - PO Q6H PRN PAIN LEVEL 1-5 Amlodipine Besylate 10 mg 11/29/17 10:00 11/30/17 09:29 Norvasc - PO 10 mg DAILY [facility] Administration Ascorbic Acid 500 mg 11/28/17 22:00 11/30/17 09:30 Vitamin C - PO 500 mg BID [facility] Administration Aspirin 81 mg 11/29/17 10:00 11/30/17 09:29 Asa - PO 81 mg DAILY [facility] Administration Atorvastatin Calcium 80 mg 11/28/17 22:00 11/29/17 22:22 Lipitor - PO 80 mg HS [facility] Administration Bacitracin 1 applic 11/29/17 10:00 11/30/17 09:30 Bacitracin - TP Not Given DAILY [facility] Carvedilol 12.5 mg 11/28/17 22:00 11/30/17 09:29 Coreg - PO 12.5 mg BID [facility] Administration Clopidogrel Bisulfate 75 mg 11/29/17 10:00 11/30/17 09:29 Plavix - PO 75 mg DAILY [facility] Administration Docusate Sodium 100 mg 11/28/17 22:00 11/30/17 09:30 Colace - PO 100 mg BID [facility] Administration Duloxetine HCl 60 mg 11/29/17 10:00 11/30/17 09:29 Cymbalta - PO 60 mg DAILY [facility] Administration Ferrous Sulfate 325 mg 11/29/17 10:00 11/30/17 09:29 Feosol - PO 325 mg DAILY [facility] Administration Folic Acid 1 mg 11/29/17 10:00 11/30/17 09:29 Folic Acid - PO 1 mg DAILY [facility] Administration Gabapentin 400 mg 11/28/17 22:00 11/30/17 06:06 Neurontin - PO 400 mg TID [facility] Administration Meropenem 1 gm/ Dextrose 100 mls @ 200 mls/hr 11/28/17 18:00 11/30/17 09:24 IVPB 200 mls/hr Q8H-IV [facility] Administration Insulin Aspart 1 vial 11/28/17 22:00 11/30/17 06:41 Novolog Vial Sliding Scale - SQ Not Given [facility] Protocol Insulin Detemir 22 units 11/28/17 22:00 11/29/17 22:20 Levemir Vial SQ 22 units HS [facility] Administration Lisinopril 20 mg 11/29/17 10:00 11/30/17 09:30 Prinivil PO 20 mg DAILY [facility] Administration Multivitamins/Minerals/Vitamin C 1 tab 11/29/17 10:00 11/30/17 09:30 Tab-A-Vit - PO 1 tab DAILY [facility] Administration Ondansetron HCl 4 mg 11/28/17 17:35 11/29/17 18:11 Zofran Injection IVPUSH 4 mg Q4H PRN Administration NAUSEA AND/OR VOMITING Oxycodone HCl 5 mg 11/28/17 17:35 11/28/17 19:42 Roxicodone - PO 5 mg Q6H PRN Administration PAIN LEVEL 1-5 Oxycodone HCl 10 mg 11/29/17 02:30 11/29/17 10:52 Roxicodone - PO 10 mg Q6H PRN Administration PAIN LEVEL 6-10 Pantoprazole Sodium 40 mg 11/29/17 10:00 11/30/17 09:29 Protonix - PO 40 mg DAILY [facility] Administration Promethazine HCl 12.5 mg 11/28/17 17:35 Phenergan Injection - IVPB Q6H PRN NAUSEA-FOR RESCUE AFTER 15 MIN Zinc Sulfate 220 mg 11/28/17 22:00 11/30/17 09:30 Orazinc - PO 220 mg BID [facility] Administration Laboratory Results - last 24 hr 11/28/17 11/29/17 11/29/17 17:56 17:14 20:56 WBC RBC Hgb Hct MCV MCH MCHC RDW Plt Count MPV Sodium Potassium Chloride Carbon Dioxide Anion Gap BUN Creatinine Creat Clearance w eGFR POC Glucometer 112 130 147 Random Glucose Calcium 11/30/17 11/30/17 11/30/17 06:00 06:00 06:05 WBC 7.4 RBC 2.73 L Hgb 8.0 L Hct 24.0 L MCV 88.0 MCH 29.4 MCHC 33.4 RDW 15.3 Plt Count 353 MPV 7.3 L Sodium 140 Potassium 4.5 Chloride 106 Carbon Dioxide 28 Anion Gap 6 L BUN 22 H Creatinine 0.6 Creat Clearance w eGFR > 60 POC Glucometer 128 Random Glucose 118 H Calcium 8.7 Physical Constitutional: Yes: No Distress, Comfortable. Eyes: Yes: Conjunctiva Clear Neck: Yes: Supple Cardiovascular: Yes: Regular Rate and Rhythm Respiratory: Yes: Diminished Gastrointestinal: Yes: Soft, NT Edema: No Wound/Incision: Yes: Other (Right heel chronic wound-) s/p left BKA ,foot warm Psychiatric: Yes: Alert Assessment/Plan In summary 52 y.o. female with PMH of Uncontrolled DM, PAD s/p Rt fem-tibial bypass, s/p Lt BKA, HTN, HLD, depression and chronic Rt heel ulcer s/p debridement on and course of antibiotics re-admitted with malodorous drainage from Rt heel wound --with exposed bone) - s/p integra placement continue abx wound vac placed s/p graft placement and debridement monitor bp/bgm will transfuse one unit today dc planning for tomorrow on PO antibiotics per ID pain control zofran as needed monitor cbc - pelvic sono - multiple fibroids Problem List - Problems (1) Diabetic foot ulcer Code(s): E11.621 - TYPE 2 DIABETES MELLITUS WITH FOOT ULCER; L97.509 - NON- PRESSURE CHRONIC ULCER OTH PRT UNSP FOOT W UNSP SEVERITY (2) Anemia Code(s): D64.9 - ANEMIA, UNSPECIFIED (3) S/P BKA (below knee amputation) unilateral Code(s): Z89.519 - ACQUIRED ABSENCE OF UNSPECIFIED LEG BELOW KNEE
--- NOTE | 2017-11-30 13:13 | PN ---
Progress Note, Physician History of Present Illness: patient stable no new issues post op - Current Medication List Current Medications: Active Medications Acetaminophen (Tylenol -) 650 mg PO Q6H PRN PRN Reason: PAIN LEVEL 1-5 Amlodipine Besylate (Norvasc -) 10 mg PO DAILY [facility] Last Admin: 11/30/17 09:29 Dose: 10 mg Ascorbic Acid (Vitamin C -) 500 mg PO BID [facility] Last Admin: 11/30/17 09:30 Dose: 500 mg Aspirin (Asa -) 81 mg PO DAILY [facility] Last Admin: 11/30/17 09:29 Dose: 81 mg Atorvastatin Calcium (Lipitor -) 80 mg PO HS [facility] Last Admin: 11/29/17 22:22 Dose: 80 mg Bacitracin (Bacitracin -) 1 applic TP DAILY [facility] Last Admin: 11/30/17 09:30 Dose: Not Given Carvedilol (Coreg -) 12.5 mg PO BID [facility] Last Admin: 11/30/17 09:29 Dose: 12.5 mg Clopidogrel Bisulfate (Plavix -) 75 mg PO DAILY [facility] Last Admin: 11/30/17 09:29 Dose: 75 mg Docusate Sodium (Colace -) 100 mg PO BID [facility] Last Admin: 11/30/17 09:30 Dose: 100 mg Duloxetine HCl (Cymbalta -) 60 mg PO DAILY [facility] Last Admin: 11/30/17 09:29 Dose: 60 mg Ferrous Sulfate (Feosol -) 325 mg PO DAILY [facility] Last Admin: 11/30/17 09:29 Dose: 325 mg Folic Acid (Folic Acid -) 1 mg PO DAILY [facility] Last Admin: 11/30/17 09:29 Dose: 1 mg Gabapentin (Neurontin -) 400 mg PO TID [facility] Last Admin: 11/30/17 06:06 Dose: 400 mg Insulin Aspart (Novolog Vial Sliding Scale -) 1 vial SQ [facility]; Protocol Last Admin: 11/30/17 12:05 Dose: 4 units Insulin Detemir (Levemir Vial) 22 units SQ [facility] Last Admin: 11/29/17 22:20 Dose: 22 units Lisinopril (Prinivil) 20 mg PO DAILY [facility] Last Admin: 11/30/17 09:30 Dose: 20 mg Multivitamins/Minerals/Vitamin C (Tab-A-Vit -) 1 tab PO DAILY [facility] Last Admin: 11/30/17 09:30 Dose: 1 tab Ondansetron HCl (Zofran Injection) 4 mg IVPUSH Q4H PRN PRN Reason: NAUSEA AND/OR VOMITING Last Admin: 11/29/17 18:11 Dose: 4 mg Oxycodone HCl (Roxicodone -) 5 mg PO Q6H PRN PRN Reason: PAIN LEVEL 1-5 Last Admin: 11/28/17 19:42 Dose: 5 mg Oxycodone HCl (Roxicodone -) 10 mg PO Q6H PRN PRN Reason: PAIN LEVEL 6-10 Last Admin: 11/29/17 10:52 Dose: 10 mg Pantoprazole Sodium (Protonix -) 40 mg PO DAILY [facility] Last Admin: 11/30/17 09:29 Dose: 40 mg Promethazine HCl (Phenergan Injection -) 12.5 mg IVPB Q6H PRN PRN Reason: NAUSEA-FOR RESCUE AFTER 15 MIN Zinc Sulfate (Orazinc -) 220 mg PO BID [facility] Last Admin: 11/30/17 09:30 Dose: 220 mg - Objective Vital Signs: Vital Signs Temperature 98 F 11/30/17 09:19 Pulse Rate 100 H 11/30/17 09:19 Respiratory Rate 18 11/30/17 09:19 Blood Pressure 144/71 11/30/17 09:19 O2 Sat by Pulse Oximetry (%) 97 11/30/17 09:00 Constitutional: Yes: No Distress, Calm Cardiovascular: Yes: Regular Rate and Rhythm Respiratory: Yes: Regular, CTA Bilaterally Gastrointestinal: Yes: Normal Bowel Sounds, Soft Musculoskeletal: Yes: WNL Extremities: Yes: Other Neurological: Yes: Alert, Oriented Labs: CBC, BMP 11/30/17 06:00 11/30/17 06:00 INR, PTT INR 1.05 (0.83-1.09) 11/26/17 09:45 Assessment/Plan - Problems (1) Diabetic foot ulcer Code(s): E11.621 - TYPE 2 DIABETES MELLITUS WITH FOOT ULCER; L97.509 - NON- PRESSURE CHRONIC ULCER OTH PRT UNSP FOOT W UNSP SEVERITY (2) Osteomyelitis Code(s): M86.9 - OSTEOMYELITIS, UNSPECIFIED Qualifiers: Osteomyelitis type: unspecified type Osteomyelitis location: foot Laterality: right Qualified Code(s): M86.9 - Osteomyelitis, unspecified (3) Anemia Code(s): D64.9 - ANEMIA, UNSPECIFIED (4) Depression Code(s): F32.9 - MAJOR DEPRESSIVE DISORDER, SINGLE EPISODE, UNSPECIFIED Qualifiers: Depression Type: other depression Qualified Code(s): F32.89 - Other specified depressive episodes (5) Diabetes mellitus Code(s): E11.9 - TYPE 2 DIABETES MELLITUS WITHOUT COMPLICATIONS Qualifiers: Diabetes mellitus type: type 2 Diabetes mellitus supervisor intermediates insulin use: without shelter use Diabetes mellitus complication status: with circulatory complication Diabetes mellitus complication detail: with peripheral angiopathy with gangrene Qualified Code(s): E11.52 - Type 2 diabetes mellitus with diabetic peripheral angiopathy with gangrene (6) S/P BKA (below knee amputation) unilateral Code(s): Z89.519 - ACQUIRED ABSENCE OF UNSPECIFIED LEG BELOW KNEE (7) S/P vascular bypass Code(s): Z95.828 - PRESENCE OF OTHER VASCULAR IMPLANTS AND GRAFTS (8) HTN (hypertension) Code(s): I10 - ESSENTIAL (PRIMARY) HYPERTENSION Qualifiers: Hypertension type: essential hypertension Qualified Code(s): I10 - Essential (primary) hypertension (9) Hypercholesterolemia Code(s): E78.00 - PURE HYPERCHOLESTEROLEMIA, UNSPECIFIED (10) Femoral-popliteal artery atherosclerosis Code(s): I70.209 - UNSP ATHSCL [place] ARTERIES OF EXTREMITIES, UNSP EXTREMITY Assessment/Plan 52 y.o. female with PMH of Uncontrolled DM, PAD s/p Rt fem-tibial bypass, s/p Lt BKA, HTN, HLD, depression and chronic Rt heel ulcer s/p debridement on and course of antibiotics re-admitted with malodorous drainage from Rt heel wound (described as 5X5 cm, with exposed bone) for past few days. Pt currently with wound vac on, +tenderness, elevated ESR. Infected Diabetic Rt heel ulcer/OM Uncontrolled DM PAD s/p RLE bypass s/p Lt BKA HTN HLD plan will change abx to doxy rest continue current mgmt wound care
--- NOTE | 2017-11-30 16:12 | PN ---
Progress Note (short form) - Note Progress Note: Surgery POD #2 Rpt Debridement heel wound with Placement of biologic dressing - Integra Bilayer membrane. Patient seen and examined at bedside with no complaints, states she has no pain today and feeling much better. She denies any new or worsening symptoms. She denies any CP,SOB, N/V Fever or chills. Vital Signs Temp 97.9 F 11/30/17 14:10 Pulse 94 H 11/30/17 14:10 Resp 20 11/30/17 14:10 BP 134/73 11/30/17 14:10 Pulse Ox 97 11/30/17 09:00 Intake & Output 11/29/17 11/30/17 11/30/17 23:59 11:59 23:59 Intake Total 640 500 Balance 640 500 Intake: IVPB 300 Oral 340 500 Other: Voiding Method Bedpan Bedpan # Unmeasured Voids Void 2 3 2 Bowel Movement No No Yes # Bowel Movements 1 Body Mass Index (BMI) 20.9 CBC, BMP 11/30/17 06:00 11/30/17 06:00 PE: A&Ox3, NAD Unlabored resp on RA Right LE well scared incision, dressings c/d/i with surrounding tissue intact and no tracking erythema, no evidence of collection or d/c. Leg and foot warm and well perfused with Palpable thrill over anterior distal 3rd of the tibia where graft crosses. Vac on right heel in good position, no evidence of air leak. Problem List - Problems (1) Open wound of heel Assessment/Plan: POD #2 right heel Re-debridement and placement of integra graft. 1) Surgery team to change vac dressing tomorrow 2) Plan for ABX as outpatient per Dr Breanne Quintanilla as outpatient 3) pain mngt 4) D/c planning for rehab tomorrow after vac change Evaluation and plan discussed with Dr Hare Code(s): S91.309A - UNSPECIFIED OPEN WOUND, UNSPECIFIED FOOT, INITIAL ENCOUNTER
[2017-11-30] MEDS: DOXYCYCLINE HYCLATE 100 MG CAPSULE PO SCH (17:00)
[2017-11-30] MEDS ORDERED: INSULIN (NOVOLOG) ASPART 100 UNITS/ML 10ML VIAL ONE (18:06)
[2017-11-30] MEDS: ATORVASTATIN CA 80 MG TABLET (FP) PO SCH (21:45)
[2017-11-30] MEDS: INSULIN (LEVEMIR) 100 UNITS/ML UNITS SQ SCH (21:46)
[2017-12-01] MEDS: GABAPENTIN 400 MG CAPSULE (FP) PO SCH ×3 (05:28→22:04)
[2017-12-01] MEDS: INSULIN SLIDING SCALE (NOVOLOG) 1 VIAL SQ SCH ×4 (06:20→22:04)
[2017-12-01] MEDS ORDERED: MORPHINE SULFATE 2 MG/ML VIAL IVPUSH ONE (09:12)
[2017-12-01] MEDS: LISINOPRIL 20 MG TABLET (FP) PO SCH (09:24)
[2017-12-01] MEDS: FERROUS SO4 325 MG TABLET (FP) PO SCH (09:24)
[2017-12-01] MEDS: ASPIRIN 81 MG CHEWABLE TABLETS PO SCH (09:24)
[2017-12-01] MEDS: ZINC SULFATE 220 MG CAPSULE (FP) PO SCH ×2 (09:25→22:04)
[2017-12-01] MEDS: FOLIC ACID 1 MG TABLET (FP) PO SCH (09:25)
[2017-12-01] MEDS: MULTIVITAMINS (DAILY MVI) TABLET (FP) PO SCH (09:25)
[2017-12-01] MEDS: ASCORBIC ACID 500 MG TABLET (FP) PO SCH ×2 (09:25→22:04)
[2017-12-01] MEDS: CARVEDILOL 12.5 MG TABLET (FP) PO SCH ×2 (09:25→22:04)
[2017-12-01] MEDS: CLOPIDOGREL BISULFATE 75 MG TABLET (FP) PO SCH (09:25)
[2017-12-01] MEDS: PANTOPRAZOLE 40 MG TABLET (FP) PO SCH (09:25)
[2017-12-01] MEDS: amLODIPine BESYLATE 10 MG TABLET (FP) PO SCH (09:25)
[2017-12-01] MEDS: DOXYCYCLINE HYCLATE 100 MG CAPSULE PO SCH ×2 (09:26→17:19)
[2017-12-01] MEDS: BACITRACIN 15 GM TUBE TOPICAL OINTMENT TP SCH (09:26)
[2017-12-01] MEDS: DULoxetine HCL 30 MG CAPSULE.DR (FP) PO SCH (09:26)
[2017-12-01] MEDS: DOCUSATE SODIUM 100 MG CAPSULE (FP) PO SCH ×2 (09:27→22:04)
--- NOTE | 2017-12-01 10:08 | PN ---
Progress Note (short form) - Note Progress Note: POD #3 s/p Debridement right heel wound. Placement of biologic dressing - Integra Bilayer membrane Doing well. No complaints. Afeb. AVSS. Gen: alert. nad RLE: VAC dressing removed. Integra graft sutured in place. Clean. Looks good. New dressing applied. Problem List - Problems (1) PAD (peripheral artery disease) Assessment/Plan: POD #3 s/p Debridement right heel wound. Placement of biologic dressing - Integra Bilayer membrane New dressing applied on rounds VAC papers filled out and placed in patient's chart Instructions: place adaptec on top of Integra graft. Cover with black sponge. Suction set to 75mmHg. Dressing changes Mon. and Thurs.) [facility] No further surgical intervention On behalf of Dr. Hare, thank you for the opportunity to participate in your patient's care. Code(s): I73.9 - PERIPHERAL VASCULAR DISEASE, UNSPECIFIED
--- NOTE | 2017-12-01 11:12 | DS ---
Physical Examination Vital Signs: Vital Signs Temperature 98.3 F 12/01/17 09:52 Pulse Rate 94 H 12/01/17 09:52 Respiratory Rate 18 12/01/17 09:52 Blood Pressure 152/77 12/01/17 09:52 O2 Sat by Pulse Oximetry (%) 100 12/01/17 09:00 Constitutional: Yes: No Distress, Calm Cardiovascular: Yes: Regular Rate and Rhythm Respiratory: Yes: CTA Bilaterally Gastrointestinal: Yes: Normal Bowel Sounds, Soft. No: Tenderness Edema: No Labs: CBC, BMP 11/30/17 06:00 11/30/17 06:00 Discharge Summary Reason For Visit: DIABETIC FOOT ULCER Current Active Problems Diabetic foot ulcer (Acute) Osteomyelitis (Acute) PAD (peripheral artery disease) (Acute) Hospital Course: This is a 52 year old male with past medical history of HTN, HLD, DM, PAD, chronic right heel wound presented to the ED with increased swelling to her right foot as well as a foul odor . Seen by ID and Vascular surgery' had her heel debrided twice and underwent integra graft placement on 11/28/17. Pt had pelvic sono doen for pelvic mass-- she has large fibroids- no vaginal bleeding or pain -- she is advised to see outpt [facility] She will need PO doxycycline - total 30 days She was transfused here as well Last PRBC was on 11/30/17 Stable for dc to [facility]-- follow up with Vascular As per Vascular -- Instructions: place adaptec on top of Integra graft. Cover with black sponge. Suction set to 75mmHg. Dressing changes Mon. and Thurs.) Condition: Fair - Instructions Diet, Activity, Other Instructions: VAC papers filled out and placed in patient's chart Instructions: place adaptec on top of Integra graft. Cover with black sponge. Suction set to 75mmHg. Dressing changes Mon. and Thurs.) Disposition: [facility] - Home Medications Comprehensive Discharge Medication List: Ambulatory Orders Acetaminophen [Tylenol] 650 mg PO Q6H PRN 09/14/17 Glipizide [Glipizide Xl] 5 mg PO BID 09/14/17 Lisinopril [Prinivil] 20 mg PO DAILY 09/14/17 Amlodipine Besylate [Norvasc -] 10 mg PO DAILY #30 tablet 10/05/17 Ascorbic Acid [Vitamin C -] 500 mg PO BID #60 tablet 10/05/17 Atorvastatin Ca [Lipitor] 80 mg PO HS #30 tablet 10/05/17 Carvedilol [Coreg -] 12.5 mg PO BID #30 tablet 10/05/17 Docusate Sodium [Colace -] 100 mg PO BID #30 capsule 10/05/17 Ferrous Sulfate [Feosol] 325 mg PO DAILY #30 tablet 10/05/17 Folic Acid 1 mg PO DAILY #30 tablet 10/05/17 Zinc Sulfate [Orazinc -] 220 mg PO BID #60 capsule 10/05/17 Aspirin Coated [Ecotrin -] 81 mg PO DAILY tablet.ec 10/19/17 Clopidogrel Bisulfate [Plavix -] 75 mg PO DAILY tablet 10/19/17 Enoxaparin [Lovenox -] 30 mg SQ DAILY disp.syrin 10/19/17 Losartan Potassium 50 mg PO DAILY 10/26/17 Alogliptin Benzoate [Nesina] 6.25 mg PO DAILY 11/17/17 Duloxetine HCl 60 mg PO DAILY 11/17/17 Gabapentin 400 mg PO TID 11/17/17 Insulin Glargine,Hum.rec.anlog [Basaglar Marniikpen U-100] 22 unit SQ HS 11/17/17 Insulin Lispro [Admelog] See Protocol SQ BIDAC 11/17/17 Multivitamin [One Daily] 1 each PO DAILY 11/17/17 Oxycodone HCl 10 mg PO Q8H PRN 11/17/17 Pantoprazole Sodium [Protonix -] 40 mg PO DAILY 11/17/17
--- NOTE | 2017-12-01 14:43 | PN ---
Progress Note, Physician History of Present Illness: stable no new issues - Current Medication List Current Medications: Active Medications Acetaminophen (Tylenol -) 650 mg PO Q6H PRN PRN Reason: PAIN LEVEL 1-5 Amlodipine Besylate (Norvasc -) 10 mg PO DAILY [facility] Last Admin: 12/01/17 09:25 Dose: 10 mg Ascorbic Acid (Vitamin C -) 500 mg PO BID [facility] Last Admin: 12/01/17 09:25 Dose: 500 mg Aspirin (Asa -) 81 mg PO DAILY [facility] Last Admin: 12/01/17 09:24 Dose: 81 mg Atorvastatin Calcium (Lipitor -) 80 mg PO HS [facility] Last Admin: 11/30/17 21:45 Dose: 80 mg Bacitracin (Bacitracin -) 1 applic TP DAILY [facility] Last Admin: 12/01/17 09:26 Dose: Not Given Carvedilol (Coreg -) 12.5 mg PO BID [facility] Last Admin: 12/01/17 09:25 Dose: 12.5 mg Clopidogrel Bisulfate (Plavix -) 75 mg PO DAILY [facility] Last Admin: 12/01/17 09:25 Dose: 75 mg Docusate Sodium (Colace -) 100 mg PO BID [facility] Last Admin: 12/01/17 09:27 Dose: 100 mg Doxycycline Hyclate (Vibramycin -) 100 mg PO BID@1000,1800 [facility] Last Admin: 12/01/17 09:26 Dose: 100 mg Duloxetine HCl (Cymbalta -) 60 mg PO DAILY [facility] Last Admin: 12/01/17 09:26 Dose: 60 mg Ferrous Sulfate (Feosol -) 325 mg PO DAILY@0800 [facility] Last Admin: 12/01/17 09:24 Dose: 325 mg Folic Acid (Folic Acid -) 1 mg PO DAILY [facility] Last Admin: 12/01/17 09:25 Dose: 1 mg Gabapentin (Neurontin -) 400 mg PO TID [facility] Last Admin: 12/01/17 13:49 Dose: 400 mg Insulin Aspart (Novolog Vial Sliding Scale -) 1 vial SQ [facility]; Protocol Last Admin: 12/01/17 11:29 Dose: 2 units Insulin Detemir (Levemir Vial) 22 units SQ [facility] Last Admin: 11/30/17 21:46 Dose: 22 units Lisinopril (Prinivil) 20 mg PO DAILY [facility] Last Admin: 12/01/17 09:24 Dose: 20 mg Multivitamins/Minerals/Vitamin C (Tab-A-Vit -) 1 tab PO DAILY [facility] Last Admin: 12/01/17 09:25 Dose: 1 tab Ondansetron HCl (Zofran Injection) 4 mg IVPUSH Q4H PRN PRN Reason: NAUSEA AND/OR VOMITING Last Admin: 11/29/17 18:11 Dose: 4 mg Oxycodone HCl (Roxicodone -) 5 mg PO Q6H PRN PRN Reason: PAIN LEVEL 1-5 Last Admin: 11/28/17 19:42 Dose: 5 mg Oxycodone HCl (Roxicodone -) 10 mg PO Q6H PRN PRN Reason: PAIN LEVEL 6-10 Last Admin: 11/29/17 10:52 Dose: 10 mg Pantoprazole Sodium (Protonix -) 40 mg PO DAILY [facility] Last Admin: 12/01/17 09:25 Dose: 40 mg Promethazine HCl (Phenergan Injection -) 12.5 mg IVPB Q6H PRN PRN Reason: NAUSEA-FOR RESCUE AFTER 15 MIN Zinc Sulfate (Orazinc -) 220 mg PO BID@0800,2200 [facility] Last Admin: 12/01/17 09:25 Dose: 220 mg - Objective Vital Signs: Vital Signs Temperature 98.2 F 12/01/17 14:20 Pulse Rate 93 H 12/01/17 14:20 Respiratory Rate 20 12/01/17 14:20 Blood Pressure 136/66 12/01/17 14:20 O2 Sat by Pulse Oximetry (%) 100 12/01/17 09:00 Constitutional: Yes: No Distress, Calm Cardiovascular: Yes: Regular Rate and Rhythm Respiratory: Yes: Regular, CTA Bilaterally Gastrointestinal: Yes: Normal Bowel Sounds, Soft Musculoskeletal: Yes: WNL Extremities: Yes: Other Wound/Incision: Yes: Other (wound vac in place) Psychiatric: Yes: Alert, Oriented Labs: CBC, BMP 11/30/17 06:00 11/30/17 06:00 INR, PTT INR 1.05 (0.83-1.09) 11/26/17 09:45 Assessment/Plan - Problems (1) Diabetic foot ulcer Code(s): E11.621 - TYPE 2 DIABETES MELLITUS WITH FOOT ULCER; L97.509 - NON- PRESSURE CHRONIC ULCER OTH PRT UNSP FOOT W UNSP SEVERITY (2) Osteomyelitis Code(s): M86.9 - OSTEOMYELITIS, UNSPECIFIED Qualifiers: Osteomyelitis type: unspecified type Osteomyelitis location: foot Laterality: right Qualified Code(s): M86.9 - Osteomyelitis, unspecified (3) Anemia Code(s): D64.9 - ANEMIA, UNSPECIFIED (4) Depression Code(s): F32.9 - MAJOR DEPRESSIVE DISORDER, SINGLE EPISODE, UNSPECIFIED Qualifiers: Depression Type: other depression Qualified Code(s): F32.89 - Other specified depressive episodes (5) Diabetes mellitus Code(s): E11.9 - TYPE 2 DIABETES MELLITUS WITHOUT COMPLICATIONS Qualifiers: Diabetes mellitus type: type 2 Diabetes mellitus senior living insulin use: without senior living use Diabetes mellitus complication status: with circulatory complication Diabetes mellitus complication detail: with peripheral angiopathy with gangrene Qualified Code(s): E11.52 - Type 2 diabetes mellitus with diabetic peripheral angiopathy with gangrene (6) S/P BKA (below knee amputation) unilateral Code(s): Z89.519 - ACQUIRED ABSENCE OF UNSPECIFIED LEG BELOW KNEE (7) S/P vascular bypass Code(s): Z95.828 - PRESENCE OF OTHER VASCULAR IMPLANTS AND GRAFTS (8) HTN (hypertension) Code(s): I10 - ESSENTIAL (PRIMARY) HYPERTENSION Qualifiers: Hypertension type: essential hypertension Qualified Code(s): I10 - Essential (primary) hypertension (9) Hypercholesterolemia Code(s): E78.00 - PURE HYPERCHOLESTEROLEMIA, UNSPECIFIED (10) Femoral-popliteal artery atherosclerosis Code(s): I70.209 - UNSP ATHSCL [place] ARTERIES OF EXTREMITIES, UNSP EXTREMITY Assessment/Plan 52 y.o. female with PMH of Uncontrolled DM, PAD s/p Rt fem-tibial bypass, s/p Lt BKA, HTN, HLD, depression and chronic Rt heel ulcer s/p debridement on and course of antibiotics re-admitted with malodorous drainage from Rt heel wound (described as 5X5 cm, with exposed bone) for past few days. Pt currently with wound vac on, +tenderness, elevated ESR. Infected Diabetic Rt heel ulcer/OM Uncontrolled DM PAD s/p RLE bypass s/p Lt BKA HTN HLD plan doxy wound care rest as per the team patient stable
[2017-12-01] MEDS ORDERED: oxyCODONE HCL 5 MG TABLET PO PRN (16:03)
[2017-12-01] MEDS ORDERED: INSULIN (NOVOLOG) ASPART 100 UNITS/ML 10ML VIAL ONE (20:34)
[2017-12-01] MEDS: oxyCODONE HCL 5 MG TABLET PO PRN (22:03)
[2017-12-01] MEDS: INSULIN (LEVEMIR) 100 UNITS/ML UNITS SQ SCH (22:04)
[2017-12-01] MEDS: ATORVASTATIN CA 80 MG TABLET (FP) PO SCH (22:04)
[2017-12-02] MEDS: INSULIN SLIDING SCALE (NOVOLOG) 1 VIAL SQ SCH ×4 (06:41→22:10)
[2017-12-02] MEDS: GABAPENTIN 400 MG CAPSULE (FP) PO SCH ×3 (06:41→22:09)
[2017-12-02] MEDS: MULTIVITAMINS (DAILY MVI) TABLET (FP) PO SCH (09:21)
[2017-12-02] MEDS: FERROUS SO4 325 MG TABLET (FP) PO SCH (09:21)
[2017-12-02] MEDS: ASCORBIC ACID 500 MG TABLET (FP) PO SCH ×2 (09:21→22:09)
[2017-12-02] MEDS: DOXYCYCLINE HYCLATE 100 MG CAPSULE PO SCH ×2 (09:21→17:11)
[2017-12-02] MEDS: DULoxetine HCL 30 MG CAPSULE.DR (FP) PO SCH (09:22)
[2017-12-02] MEDS: CARVEDILOL 12.5 MG TABLET (FP) PO SCH ×2 (09:22→22:09)
[2017-12-02] MEDS: amLODIPine BESYLATE 10 MG TABLET (FP) PO SCH (09:22)
[2017-12-02] MEDS: FOLIC ACID 1 MG TABLET (FP) PO SCH (09:22)
[2017-12-02] MEDS: oxyCODONE HCL 5 MG TABLET PO PRN ×2 (09:22→22:08)
[2017-12-02] MEDS: ZINC SULFATE 220 MG CAPSULE (FP) PO SCH ×2 (09:22→22:09)
[2017-12-02] MEDS: PANTOPRAZOLE 40 MG TABLET (FP) PO SCH (09:22)
[2017-12-02] MEDS: CLOPIDOGREL BISULFATE 75 MG TABLET (FP) PO SCH (09:22)
[2017-12-02] MEDS: LISINOPRIL 20 MG TABLET (FP) PO SCH (09:22)
[2017-12-02] MEDS: ASPIRIN 81 MG CHEWABLE TABLETS PO SCH (09:24)
[2017-12-02] MEDS: DOCUSATE SODIUM 100 MG CAPSULE (FP) PO SCH ×2 (09:24→22:09)
--- NOTE | 2017-12-02 10:27 | PN ---
Progress Note (short form) - Note Progress Note: comfortable chart reviewed no complains Vital Signs Temp 98.2 F 12/02/17 05:44 Pulse 89 12/02/17 09:00 Resp 18 12/02/17 09:00 BP 154/77 12/02/17 09:00 Pulse Ox 100 12/01/17 21:00 Intake & Output 12/01/17 12/01/17 12/02/17 11:59 23:59 11:59 Intake Total 950 50 Balance 950 50 Intake: Oral 950 50 Other: Voiding Method Bedpan Bedpan Bedpan # Unmeasured Voids Void 2 1 Bowel Movement No No Active Medications Acetaminophen (Tylenol -) 650 mg PO Q6H PRN PRN Reason: PAIN LEVEL 1-5 Amlodipine Besylate (Norvasc -) 10 mg PO DAILY [facility] Last Admin: 12/02/17 09:22 Dose: 10 mg Ascorbic Acid (Vitamin C -) 500 mg PO BID [facility] Last Admin: 12/02/17 09:21 Dose: 500 mg Aspirin (Asa -) 81 mg PO DAILY [facility] Last Admin: 12/02/17 09:24 Dose: 81 mg Atorvastatin Calcium (Lipitor -) 80 mg PO [facility] Last Admin: 12/01/17 22:04 Dose: 80 mg Bacitracin (Bacitracin -) 1 applic TP DAILY [facility] Last Admin: 12/01/17 09:26 Dose: Not Given Carvedilol (Coreg -) 12.5 mg PO BID [facility] Last Admin: 12/02/17 09:22 Dose: 12.5 mg Clopidogrel Bisulfate (Plavix -) 75 mg PO DAILY [facility] Last Admin: 12/02/17 09:22 Dose: 75 mg Docusate Sodium (Colace -) 100 mg PO BID [facility] Last Admin: 12/02/17 09:24 Dose: 100 mg Doxycycline Hyclate (Vibramycin -) 100 mg PO BID@1000,1800 [facility] Last Admin: 12/02/17 09:21 Dose: 100 mg Duloxetine HCl (Cymbalta -) 60 mg PO DAILY [facility] Last Admin: 12/02/17 09:22 Dose: 60 mg Ferrous Sulfate (Feosol -) 325 mg PO DAILY@0800 [facility] Last Admin: 12/02/17 09:21 Dose: 325 mg Folic Acid (Folic Acid -) 1 mg PO DAILY [facility] Last Admin: 12/02/17 09:22 Dose: 1 mg Gabapentin (Neurontin -) 400 mg PO TID [facility] Last Admin: 12/02/17 06:41 Dose: 400 mg Insulin Aspart (Novolog Vial Sliding Scale -) 1 vial SQ [facility]; Protocol Last Admin: 12/02/17 06:41 Dose: Not Given Insulin Detemir (Levemir Vial) 22 units SQ HS [facility] Last Admin: 12/01/17 22:04 Dose: 22 units Lisinopril (Prinivil) 20 mg PO DAILY [facility] Last Admin: 12/02/17 09:22 Dose: 20 mg Multivitamins/Minerals/Vitamin C (Tab-A-Vit -) 1 tab PO DAILY [facility] Last Admin: 12/02/17 09:21 Dose: 1 tab Ondansetron HCl (Zofran Injection) 4 mg IVPUSH Q4H PRN PRN Reason: NAUSEA AND/OR VOMITING Last Admin: 11/29/17 18:11 Dose: 4 mg Oxycodone HCl (Roxicodone -) 5 mg PO Q6H PRN PRN Reason: PAIN LEVEL 1-5 Oxycodone HCl (Roxicodone -) 10 mg PO Q6H PRN PRN Reason: PAIN LEVEL 6-10 Last Admin: 12/02/17 09:22 Dose: 10 mg Pantoprazole Sodium (Protonix -) 40 mg PO DAILY [facility] Last Admin: 12/02/17 09:22 Dose: 40 mg Promethazine HCl (Phenergan Injection -) 12.5 mg IVPB Q6H PRN PRN Reason: NAUSEA-FOR RESCUE AFTER 15 MIN Zinc Sulfate (Orazinc -) 220 mg PO BID@0800,2200 [facility] Last Admin: 12/02/17 09:22 Dose: 220 mg CBC, BMP 11/30/17 06:00 11/30/17 06:00 Physical Constitutional: Yes: No Distress, Comfortable. Eyes: Yes: Conjunctiva Clear Neck: Yes: Supple Cardiovascular: Yes: Regular Rate and Rhythm Respiratory: Yes: Diminished Gastrointestinal: Yes: Soft, NT Edema: No Wound/Incision: Yes: Other (Right heel chronic wound-) s/p left BKA Psychiatric: Yes: Alert/ awake Assessment/Plan In summary 52 y.o. female with PMH of Uncontrolled DM, PAD s/p Rt fem-tibial bypass, s/p Lt BKA, HTN, HLD, depression and chronic Rt heel ulcer s/p debridement on and course of antibiotics re-admitted with malodorous drainage from Rt heel wound --with exposed bone) - s/p integra placement continue abx wound vac placed s/p graft placement and debridement monitor bp/bgm dc for today on PO antibiotics -- see detailed d/c summary as of yesterday. Problem List - Problems (1) Diabetic foot ulcer Code(s): E11.621 - TYPE 2 DIABETES MELLITUS WITH FOOT ULCER; L97.509 - NON- PRESSURE CHRONIC ULCER OTH PRT UNSP FOOT W UNSP SEVERITY (2) Anemia Code(s): D64.9 - ANEMIA, UNSPECIFIED (3) S/P BKA (below knee amputation) unilateral Code(s): Z89.519 - ACQUIRED ABSENCE OF UNSPECIFIED LEG BELOW KNEE
[2017-12-02] MEDS ORDERED: INSULIN (NOVOLOG) ASPART 100 UNITS/ML 10ML VIAL ONE (12:12)
--- NOTE | 2017-12-02 12:29 | PN ---
Progress Note, Physician History of Present Illness: stable no new issues awaiting for placement patient doing well - Current Medication List Current Medications: Active Medications Acetaminophen (Tylenol -) 650 mg PO Q6H PRN PRN Reason: PAIN LEVEL 1-5 Amlodipine Besylate (Norvasc -) 10 mg PO DAILY [facility] Last Admin: 12/02/17 09:22 Dose: 10 mg Ascorbic Acid (Vitamin C -) 500 mg PO BID [facility] Last Admin: 12/02/17 09:21 Dose: 500 mg Aspirin (Asa -) 81 mg PO DAILY [facility] Last Admin: 12/02/17 09:24 Dose: 81 mg Atorvastatin Calcium (Lipitor -) 80 mg PO HS [facility] Last Admin: 12/01/17 22:04 Dose: 80 mg Bacitracin (Bacitracin -) 1 applic TP DAILY [facility] Last Admin: 12/01/17 09:26 Dose: Not Given Carvedilol (Coreg -) 12.5 mg PO BID [facility] Last Admin: 12/02/17 09:22 Dose: 12.5 mg Clopidogrel Bisulfate (Plavix -) 75 mg PO DAILY [facility] Last Admin: 12/02/17 09:22 Dose: 75 mg Docusate Sodium (Colace -) 100 mg PO BID [facility] Last Admin: 12/02/17 09:24 Dose: 100 mg Doxycycline Hyclate (Vibramycin -) 100 mg PO BID@1000,1800 [facility] Last Admin: 12/02/17 09:21 Dose: 100 mg Duloxetine HCl (Cymbalta -) 60 mg PO DAILY [facility] Last Admin: 12/02/17 09:22 Dose: 60 mg Ferrous Sulfate (Feosol -) 325 mg PO DAILY@0800 [facility] Last Admin: 12/02/17 09:21 Dose: 325 mg Folic Acid (Folic Acid -) 1 mg PO DAILY [facility] Last Admin: 12/02/17 09:22 Dose: 1 mg Gabapentin (Neurontin -) 400 mg PO TID [facility] Last Admin: 12/02/17 06:41 Dose: 400 mg Insulin Aspart (Novolog Vial Sliding Scale -) 1 vial SQ [facility]; Protocol Last Admin: 12/02/17 12:15 Dose: 2 units Insulin Detemir (Levemir Vial) 22 units SQ [facility] Last Admin: 12/01/17 22:04 Dose: 22 units Lisinopril (Prinivil) 20 mg PO DAILY [facility] Last Admin: 12/02/17 09:22 Dose: 20 mg Multivitamins/Minerals/Vitamin C (Tab-A-Vit -) 1 tab PO DAILY [facility] Last Admin: 12/02/17 09:21 Dose: 1 tab Ondansetron HCl (Zofran Injection) 4 mg IVPUSH Q4H PRN PRN Reason: NAUSEA AND/OR VOMITING Last Admin: 11/29/17 18:11 Dose: 4 mg Oxycodone HCl (Roxicodone -) 5 mg PO Q6H PRN PRN Reason: PAIN LEVEL 1-5 Oxycodone HCl (Roxicodone -) 10 mg PO Q6H PRN PRN Reason: PAIN LEVEL 6-10 Last Admin: 12/02/17 09:22 Dose: 10 mg Pantoprazole Sodium (Protonix -) 40 mg PO DAILY [facility] Last Admin: 12/02/17 09:22 Dose: 40 mg Promethazine HCl (Phenergan Injection -) 12.5 mg IVPB Q6H PRN PRN Reason: NAUSEA-FOR RESCUE AFTER 15 MIN Zinc Sulfate (Orazinc -) 220 mg PO BID@0800,2200 [facility] Last Admin: 12/02/17 09:22 Dose: 220 mg - Objective Vital Signs: Vital Signs Temperature 98.2 F 12/02/17 05:44 Pulse Rate 89 12/02/17 09:00 Respiratory Rate 18 12/02/17 09:00 Blood Pressure 154/77 12/02/17 09:00 O2 Sat by Pulse Oximetry (%) 100 12/01/17 21:00 Constitutional: Yes: No Distress, Calm Cardiovascular: Yes: Regular Rate and Rhythm Respiratory: Yes: Regular, CTA Bilaterally Gastrointestinal: Yes: Normal Bowel Sounds, Soft Musculoskeletal: Yes: WNL Extremities: Yes: Other Wound/Incision: Yes: Other (wound vac in place) Neurological: Yes: Alert, Oriented Psychiatric: Yes: Alert, Oriented Labs: CBC, BMP 11/30/17 06:00 11/30/17 06:00 INR, PTT INR 1.05 (0.83-1.09) 11/26/17 09:45 Assessment/Plan - Problems (1) Diabetic foot ulcer Code(s): E11.621 - TYPE 2 DIABETES MELLITUS WITH FOOT ULCER; L97.509 - NON- PRESSURE CHRONIC ULCER OTH PRT UNSP FOOT W UNSP SEVERITY (2) Osteomyelitis Code(s): M86.9 - OSTEOMYELITIS, UNSPECIFIED Qualifiers: Osteomyelitis type: unspecified type Osteomyelitis location: foot Laterality: right Qualified Code(s): M86.9 - Osteomyelitis, unspecified (3) Anemia Code(s): D64.9 - ANEMIA, UNSPECIFIED (4) Depression Code(s): F32.9 - MAJOR DEPRESSIVE DISORDER, SINGLE EPISODE, UNSPECIFIED Qualifiers: Depression Type: other depression Qualified Code(s): F32.89 - Other specified depressive episodes (5) Diabetes mellitus Code(s): E11.9 - TYPE 2 DIABETES MELLITUS WITHOUT COMPLICATIONS Qualifiers: Diabetes mellitus type: type 2 Diabetes mellitus middle or intermediate school principal insulin use: without fpc use Diabetes mellitus complication status: with circulatory complication Diabetes mellitus complication detail: with peripheral angiopathy with gangrene Qualified Code(s): E11.52 - Type 2 diabetes mellitus with diabetic peripheral angiopathy with gangrene (6) S/P BKA (below knee amputation) unilateral Code(s): Z89.519 - ACQUIRED ABSENCE OF UNSPECIFIED LEG BELOW KNEE (7) S/P vascular bypass Code(s): Z95.828 - PRESENCE OF OTHER VASCULAR IMPLANTS AND GRAFTS (8) HTN (hypertension) Code(s): I10 - ESSENTIAL (PRIMARY) HYPERTENSION Qualifiers: Hypertension type: essential hypertension Qualified Code(s): I10 - Essential (primary) hypertension (9) Hypercholesterolemia Code(s): E78.00 - PURE HYPERCHOLESTEROLEMIA, UNSPECIFIED (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 female with PMH of Uncontrolled DM, PAD s/p Rt fem-tibial bypass, s/p Lt BKA, HTN, HLD, depression and chronic Rt heel ulcer s/p debridement on and course of antibiotics re-admitted with malodorous drainage from Rt heel wound (described as 5X5 cm, with exposed bone) for past few days. Pt currently with wound vac on, +tenderness, elevated ESR. Infected Diabetic Rt heel ulcer/OM Uncontrolled DM PAD s/p RLE bypass s/p Lt BKA HTN HLD plan continue doxy as planned wound care rest as per the team patient stable
[2017-12-02] MEDS: BACITRACIN 15 GM TUBE TOPICAL OINTMENT TP SCH (17:08)
[2017-12-02] MEDS: ATORVASTATIN CA 80 MG TABLET (FP) PO SCH (22:09)
[2017-12-02] MEDS: INSULIN (LEVEMIR) 100 UNITS/ML UNITS SQ SCH (22:10)
[2017-12-03] MEDS: oxyCODONE HCL 5 MG TABLET PO PRN (06:04)
[2017-12-03] MEDS: GABAPENTIN 400 MG CAPSULE (FP) PO SCH ×3 (06:05→23:28)
[2017-12-03] MEDS: INSULIN SLIDING SCALE (NOVOLOG) 1 VIAL SQ SCH ×4 (06:41→23:29)
[2017-12-03] MEDS: ZINC SULFATE 220 MG CAPSULE (FP) PO SCH ×2 (08:10→23:28)
[2017-12-03] MEDS: FERROUS SO4 325 MG TABLET (FP) PO SCH (08:10)
[2017-12-03] MEDS: CARVEDILOL 12.5 MG TABLET (FP) PO SCH ×2 (09:31→23:28)
[2017-12-03] MEDS: BACITRACIN 15 GM TUBE TOPICAL OINTMENT TP SCH (09:31)
[2017-12-03] MEDS: ASPIRIN 81 MG CHEWABLE TABLETS PO SCH (09:31)
[2017-12-03] MEDS: DOCUSATE SODIUM 100 MG CAPSULE (FP) PO SCH ×2 (09:31→23:27)
[2017-12-03] MEDS: CLOPIDOGREL BISULFATE 75 MG TABLET (FP) PO SCH (09:32)
[2017-12-03] MEDS: MULTIVITAMINS (DAILY MVI) TABLET (FP) PO SCH (09:32)
[2017-12-03] MEDS: FOLIC ACID 1 MG TABLET (FP) PO SCH (09:32)
[2017-12-03] MEDS: DOXYCYCLINE HYCLATE 100 MG CAPSULE PO SCH ×2 (09:32→18:15)
[2017-12-03] MEDS: PANTOPRAZOLE 40 MG TABLET (FP) PO SCH (09:32)
[2017-12-03] MEDS: LISINOPRIL 20 MG TABLET (FP) PO SCH (09:32)
[2017-12-03] MEDS: ASCORBIC ACID 500 MG TABLET (FP) PO SCH ×2 (09:32→23:28)
[2017-12-03] MEDS: amLODIPine BESYLATE 10 MG TABLET (FP) PO SCH (09:32)
[2017-12-03] MEDS: DULoxetine HCL 30 MG CAPSULE.DR (FP) PO SCH (09:32)
--- NOTE | 2017-12-03 10:32 | PN ---
Progress Note (short form) - Note Progress Note: comfortable no new issues Vital Signs Temp 97.9 F 12/02/17 22:00 Pulse 89 12/03/17 05:34 Resp 18 12/03/17 05:34 BP 159/89 12/03/17 05:34 Pulse Ox 100 12/02/17 21:00 Intake & Output 12/02/17 12/02/17 12/03/17 11:59 23:59 11:59 Intake Total 50 600 200 Balance 50 600 200 Intake: Oral 50 600 200 Other: Voiding Method Bedpan Bedpan Bedpan # Unmeasured Voids Void 1 Bowel Movement Yes # Bowel Movements 1 Active Medications Acetaminophen (Tylenol -) 650 mg PO Q6H PRN PRN Reason: PAIN LEVEL 1-5 Amlodipine Besylate (Norvasc -) 10 mg PO DAILY [facility] Last Admin: 12/03/17 09:32 Dose: 10 mg Ascorbic Acid (Vitamin C -) 500 mg PO BID [facility] Last Admin: 12/03/17 09:32 Dose: 500 mg Aspirin (Asa -) 81 mg PO DAILY [facility] Last Admin: 12/03/17 09:31 Dose: 81 mg Atorvastatin Calcium (Lipitor -) 80 mg PO HS [facility] Last Admin: 12/02/17 22:09 Dose: 80 mg Bacitracin (Bacitracin -) 1 applic TP DAILY [facility] Last Admin: 12/03/17 09:31 Dose: 1 applic Carvedilol (Coreg -) 12.5 mg PO BID [facility] Last Admin: 12/03/17 09:31 Dose: 12.5 mg Clopidogrel Bisulfate (Plavix -) 75 mg PO DAILY [facility] Last Admin: 12/03/17 09:32 Dose: 75 mg Docusate Sodium (Colace -) 100 mg PO BID [facility] Last Admin: 12/03/17 09:31 Dose: 100 mg Doxycycline Hyclate (Vibramycin -) 100 mg PO BID@1000,1800 [facility] Last Admin: 12/03/17 09:32 Dose: 100 mg Duloxetine HCl (Cymbalta -) 60 mg PO DAILY [facility] Last Admin: 12/03/17 09:32 Dose: 60 mg Ferrous Sulfate (Feosol -) 325 mg PO DAILY@0800 [facility] Last Admin: 12/03/17 08:10 Dose: 325 mg Folic Acid (Folic Acid -) 1 mg PO DAILY [facility] Last Admin: 12/03/17 09:32 Dose: 1 mg Gabapentin (Neurontin -) 400 mg PO TID [facility] Last Admin: 12/03/17 06:05 Dose: 400 mg Insulin Aspart (Novolog Vial Sliding Scale -) 1 vial SQ [facility]; Protocol Last Admin: 12/03/17 06:41 Dose: Not Given Insulin Detemir (Levemir Vial) 22 units SQ HS [facility] Last Admin: 12/02/17 22:10 Dose: 22 units Lisinopril (Prinivil) 20 mg PO DAILY [facility] Last Admin: 12/03/17 09:32 Dose: 20 mg Multivitamins/Minerals/Vitamin C (Tab-A-Vit -) 1 tab PO DAILY [facility] Last Admin: 12/03/17 09:32 Dose: 1 tab Ondansetron HCl (Zofran Injection) 4 mg IVPUSH Q4H PRN PRN Reason: NAUSEA AND/OR VOMITING Last Admin: 11/29/17 18:11 Dose: 4 mg Oxycodone HCl (Roxicodone -) 5 mg PO Q6H PRN PRN Reason: PAIN LEVEL 1-5 Oxycodone HCl (Roxicodone -) 10 mg PO Q6H PRN PRN Reason: PAIN LEVEL 6-10 Last Admin: 12/03/17 06:04 Dose: 10 mg Pantoprazole Sodium (Protonix -) 40 mg PO DAILY [facility] Last Admin: 12/03/17 09:32 Dose: 40 mg Promethazine HCl (Phenergan Injection -) 12.5 mg IVPB Q6H PRN PRN Reason: NAUSEA-FOR RESCUE AFTER 15 MIN Zinc Sulfate (Orazinc -) 220 mg PO BID@0800,2200 [facility] Last Admin: 12/03/17 08:10 Dose: 220 mg CBC, BMP 11/30/17 06:00 11/30/17 06:00 Physical Exam. Constitutional: Yes: No Distress, Comfortable. Eyes: Yes: Conjunctiva Clear Neck: Yes: Supple Cardiovascular: Yes: Regular Rate and Rhythm Respiratory: Yes: Diminished Gastrointestinal: Yes: Soft, NT Edema: No Wound/Incision: Yes: Other (Right heel chronic wound-) s/p left BKA Assessment/Plan In summary 52 y.o. female with PMH of Uncontrolled DM, PAD s/p Rt fem-tibial bypass, s/p Lt BKA, HTN, HLD, depression and chronic Rt heel ulcer s/p debridement on and course of antibiotics re-admitted with malodorous drainage from Rt heel wound --with exposed bone) - s/p integra placement continue abx--on po wound vac placed s/p graft placement and debridement monitor bp/bgm awaiting authorization for transfer to half-way Problem List - Problems (1) Diabetic foot ulcer Code(s): E11.621 - TYPE 2 DIABETES MELLITUS WITH FOOT ULCER; L97.509 - NON- PRESSURE CHRONIC ULCER OTH PRT UNSP FOOT W UNSP SEVERITY (2) Anemia Code(s): D64.9 - ANEMIA, UNSPECIFIED (3) S/P BKA (below knee amputation) unilateral Code(s): Z89.519 - ACQUIRED ABSENCE OF UNSPECIFIED LEG BELOW KNEE Problem List - Problems (1) Diabetic foot ulcer Code(s): E11.621 - TYPE 2 DIABETES MELLITUS WITH FOOT ULCER; L97.509 - NON- PRESSURE CHRONIC ULCER OTH PRT UNSP FOOT W UNSP SEVERITY (2) Anemia Code(s): D64.9 - ANEMIA, UNSPECIFIED (3) S/P BKA (below knee amputation) unilateral Code(s): Z89.519 - ACQUIRED ABSENCE OF UNSPECIFIED LEG BELOW KNEE
--- NOTE | 2017-12-03 10:35 | PROC ---
Procedure Note Procedure: VSS VAC in place, minimal drainage Dressing change Tuesday
[2017-12-03] MEDS: ENOXAPARIN NA (PORCINE) 40 MG/0.4 ML DISP.SYRIN SQ SCH (13:37)
--- NOTE | 2017-12-03 14:03 | PN ---
Progress Note, Physician History of Present Illness: Pt states she is doing well. She has no new specific complaints. Tolerating antibiotics. - Current Medication List Current Medications: Active Medications Acetaminophen (Tylenol -) 650 mg PO Q6H PRN PRN Reason: PAIN LEVEL 1-5 Amlodipine Besylate (Norvasc -) 10 mg PO DAILY [facility] Last Admin: 12/03/17 09:32 Dose: 10 mg Ascorbic Acid (Vitamin C -) 500 mg PO BID [facility] Last Admin: 12/03/17 09:32 Dose: 500 mg Aspirin (Asa -) 81 mg PO DAILY [facility] Last Admin: 12/03/17 09:31 Dose: 81 mg Atorvastatin Calcium (Lipitor -) 80 mg PO HS [facility] Last Admin: 12/02/17 22:09 Dose: 80 mg Bacitracin (Bacitracin -) 1 applic TP DAILY [facility] Last Admin: 12/03/17 09:31 Dose: 1 applic Carvedilol (Coreg -) 12.5 mg PO BID [facility] Last Admin: 12/03/17 09:31 Dose: 12.5 mg Clopidogrel Bisulfate (Plavix -) 75 mg PO DAILY [facility] Last Admin: 12/03/17 09:32 Dose: 75 mg Docusate Sodium (Colace -) 100 mg PO BID [facility] Last Admin: 12/03/17 09:31 Dose: 100 mg Doxycycline Hyclate (Vibramycin -) 100 mg PO BID@1000,1800 [facility] Last Admin: 12/03/17 09:32 Dose: 100 mg Duloxetine HCl (Cymbalta -) 60 mg PO DAILY [facility] Last Admin: 12/03/17 09:32 Dose: 60 mg Enoxaparin Sodium (Lovenox -) 40 mg SQ DAILY [facility] Last Admin: 12/03/17 13:37 Dose: 40 mg Ferrous Sulfate (Feosol -) 325 mg PO DAILY@0800 [facility] Last Admin: 12/03/17 08:10 Dose: 325 mg Folic Acid (Folic Acid -) 1 mg PO DAILY [facility] Last Admin: 12/03/17 09:32 Dose: 1 mg Gabapentin (Neurontin -) 400 mg PO TID [facility] Last Admin: 12/03/17 13:38 Dose: 400 mg Insulin Aspart (Novolog Vial Sliding Scale -) 1 vial SQ ACHS [facility]; Protocol Last Admin: 12/03/17 11:28 Dose: 2 units Insulin Detemir (Levemir Vial) 22 units SQ HS [facility] Last Admin: 12/02/17 22:10 Dose: 22 units Lisinopril (Prinivil) 20 mg PO DAILY [facility] Last Admin: 12/03/17 09:32 Dose: 20 mg Multivitamins/Minerals/Vitamin C (Tab-A-Vit -) 1 tab PO DAILY [facility] Last Admin: 12/03/17 09:32 Dose: 1 tab Ondansetron HCl (Zofran Injection) 4 mg IVPUSH Q4H PRN PRN Reason: NAUSEA AND/OR VOMITING Last Admin: 11/29/17 18:11 Dose: 4 mg Oxycodone HCl (Roxicodone -) 5 mg PO Q6H PRN PRN Reason: PAIN LEVEL 1-5 Oxycodone HCl (Roxicodone -) 10 mg PO Q6H PRN PRN Reason: PAIN LEVEL 6-10 Last Admin: 12/03/17 06:04 Dose: 10 mg Pantoprazole Sodium (Protonix -) 40 mg PO DAILY [facility] Last Admin: 12/03/17 09:32 Dose: 40 mg Promethazine HCl (Phenergan Injection -) 12.5 mg IVPB Q6H PRN PRN Reason: NAUSEA-FOR RESCUE AFTER 15 MIN Zinc Sulfate (Orazinc -) 220 mg PO BID@0800,2200 [facility] Last Admin: 12/03/17 08:10 Dose: 220 mg - Objective Vital Signs: Vital Signs Temperature 97.7 F 12/03/17 13:44 Pulse Rate 91 H 12/03/17 13:44 Respiratory Rate 18 12/03/17 13:44 Blood Pressure 124/62 12/03/17 13:44 O2 Sat by Pulse Oximetry (%) 100 12/03/17 09:00 Constitutional: Yes: No Distress, Calm Neck: Yes: Supple Respiratory: Yes: Regular Gastrointestinal: Yes: Normal Bowel Sounds, Soft Extremities: Yes: Amputation (LT - site healed) Wound/Incision: Yes: Other (Rt heel wound vac, no tenderness) Neurological: Yes: Alert, Oriented Labs: CBC, BMP 11/30/17 06:00 11/30/17 06:00 INR, PTT INR 1.05 (0.83-1.09) 11/26/17 09:45 Problem List - Problems (1) Diabetic foot ulcer Code(s): E11.621 - TYPE 2 DIABETES MELLITUS WITH FOOT ULCER; L97.509 - NON- PRESSURE CHRONIC ULCER OTH PRT UNSP FOOT W UNSP SEVERITY (2) Osteomyelitis Code(s): M86.9 - OSTEOMYELITIS, UNSPECIFIED Qualifiers: Osteomyelitis type: unspecified type Osteomyelitis location: foot Laterality: right Qualified Code(s): M86.9 - Osteomyelitis, unspecified (3) Anemia Code(s): D64.9 - ANEMIA, UNSPECIFIED (4) Depression Code(s): F32.9 - MAJOR DEPRESSIVE DISORDER, SINGLE EPISODE, UNSPECIFIED Qualifiers: Depression Type: other depression Qualified Code(s): F32.89 - Other specified depressive episodes (5) Diabetes mellitus Code(s): E11.9 - TYPE 2 DIABETES MELLITUS WITHOUT COMPLICATIONS Qualifiers: Diabetes mellitus type: type 2 Diabetes mellitus half-way insulin use: without superintendent terminal use Diabetes mellitus complication status: with circulatory complication Diabetes mellitus complication detail: with peripheral angiopathy with gangrene Qualified Code(s): E11.52 - Type 2 diabetes mellitus with diabetic peripheral angiopathy with gangrene (6) S/P BKA (below knee amputation) unilateral Code(s): Z89.519 - ACQUIRED ABSENCE OF UNSPECIFIED LEG BELOW KNEE (7) S/P vascular bypass Code(s): Z95.828 - PRESENCE OF OTHER VASCULAR IMPLANTS AND GRAFTS (8) HTN (hypertension) Code(s): I10 - ESSENTIAL (PRIMARY) HYPERTENSION Qualifiers: Hypertension type: essential hypertension Qualified Code(s): I10 - Essential (primary) hypertension (9) Hypercholesterolemia Code(s): E78.00 - PURE HYPERCHOLESTEROLEMIA, UNSPECIFIED (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 female with PMH of Uncontrolled DM, PAD s/p Rt fem-tibial bypass, s/p Lt BKA, HTN, HLD, depression and chronic Rt heel ulcer s/p debridement on Infected Diabetic Rt heel ulcer/OM s/p debridement Uncontrolled DM PAD s/p RLE bypass s/p Lt BKA HTN HLD -- continue po antibiotics -- wound vac in place pt currently stable, pain controlled.
[2017-12-03] MEDS ORDERED: INSULIN (NOVOLOG) ASPART 100 UNITS/ML 10ML VIAL ONE (21:49)
[2017-12-03] MEDS: INSULIN (LEVEMIR) 100 UNITS/ML UNITS SQ SCH (23:27)
[2017-12-03] MEDS: ATORVASTATIN CA 80 MG TABLET (FP) PO SCH (23:29)
[2017-12-04] MEDS: GABAPENTIN 400 MG CAPSULE (FP) PO SCH ×3 (06:22→22:37)
[2017-12-04] MEDS: INSULIN SLIDING SCALE (NOVOLOG) 1 VIAL SQ SCH ×4 (06:23→22:47)
[2017-12-04] MEDS: oxyCODONE HCL 5 MG TABLET PO PRN ×2 (10:00→22:45)
[2017-12-04] MEDS: ENOXAPARIN NA (PORCINE) 40 MG/0.4 ML DISP.SYRIN SQ SCH (10:00)
[2017-12-04] MEDS: CLOPIDOGREL BISULFATE 75 MG TABLET (FP) PO SCH (10:01)
[2017-12-04] MEDS: amLODIPine BESYLATE 10 MG TABLET (FP) PO SCH (10:01)
[2017-12-04] MEDS: CARVEDILOL 12.5 MG TABLET (FP) PO SCH ×2 (10:01→22:37)
[2017-12-04] MEDS: PANTOPRAZOLE 40 MG TABLET (FP) PO SCH (10:01)
[2017-12-04] MEDS: FOLIC ACID 1 MG TABLET (FP) PO SCH (10:01)
[2017-12-04] MEDS: DOCUSATE SODIUM 100 MG CAPSULE (FP) PO SCH ×2 (10:01→22:37)
[2017-12-04] MEDS: ZINC SULFATE 220 MG CAPSULE (FP) PO SCH ×2 (10:01→22:37)
[2017-12-04] MEDS: FERROUS SO4 325 MG TABLET (FP) PO SCH (10:01)
[2017-12-04] MEDS: DOXYCYCLINE HYCLATE 100 MG CAPSULE PO SCH ×2 (10:02→17:00)
[2017-12-04] MEDS: ASCORBIC ACID 500 MG TABLET (FP) PO SCH ×2 (10:02→22:37)
[2017-12-04] MEDS: BACITRACIN 15 GM TUBE TOPICAL OINTMENT TP SCH (10:02)
[2017-12-04] MEDS: ASPIRIN 81 MG CHEWABLE TABLETS PO SCH (10:02)
[2017-12-04] MEDS: DULoxetine HCL 30 MG CAPSULE.DR (FP) PO SCH (10:02)
[2017-12-04] MEDS: LISINOPRIL 20 MG TABLET (FP) PO SCH (10:08)
[2017-12-04] MEDS: MULTIVITAMINS (DAILY MVI) TABLET (FP) PO SCH (10:08)
--- NOTE | 2017-12-04 14:43 | PN ---
Progress Note (short form) - Note Progress Note: Comfortable feels well no new issues Vital Signs Temp 98.3 F 12/04/17 10:00 Pulse 99 H 12/04/17 10:00 Resp 188 H 12/04/17 10:00 BP 135/64 12/04/17 10:00 Pulse Ox 99 12/04/17 09:00 Intake & Output 12/03/17 12/04/17 12/04/17 23:59 11:59 23:59 Intake Total 200 600 Balance 200 600 Intake: IV 0 sl 0 Oral 200 600 Other: Voiding Method Bedpan Bedpan # Unmeasured Voids Void 1 Bowel Movement No Active Medications Acetaminophen (Tylenol -) 650 mg PO Q6H PRN PRN Reason: PAIN LEVEL 1-5 Amlodipine Besylate (Norvasc -) 10 mg PO DAILY [facility] Last Admin: 12/04/17 10:01 Dose: 10 mg Ascorbic Acid (Vitamin C -) 500 mg PO BID [facility] Last Admin: 12/04/17 10:02 Dose: 500 mg Aspirin (Asa -) 81 mg PO DAILY [facility] Last Admin: 12/04/17 10:02 Dose: 81 mg Atorvastatin Calcium (Lipitor -) 80 mg PO HS [facility] Last Admin: 12/03/17 23:29 Dose: 80 mg Bacitracin (Bacitracin -) 1 applic TP DAILY [facility] Last Admin: 12/04/17 10:02 Dose: 1 applic Carvedilol (Coreg -) 12.5 mg PO BID [facility] Last Admin: 12/04/17 10:01 Dose: 12.5 mg Clopidogrel Bisulfate (Plavix -) 75 mg PO DAILY [facility] Last Admin: 12/04/17 10:01 Dose: 75 mg Docusate Sodium (Colace -) 100 mg PO BID [facility] Last Admin: 12/04/17 10:01 Dose: 100 mg Doxycycline Hyclate (Vibramycin -) 100 mg PO BID@1000,1800 [facility] Last Admin: 12/04/17 10:02 Dose: 100 mg Duloxetine HCl (Cymbalta -) 60 mg PO DAILY [facility] Last Admin: 12/04/17 10:02 Dose: 60 mg Enoxaparin Sodium (Lovenox -) 40 mg SQ DAILY [facility] Last Admin: 12/04/17 10:00 Dose: 40 mg Ferrous Sulfate (Feosol -) 325 mg PO DAILY@0800 [facility] Last Admin: 12/04/17 10:01 Dose: 325 mg Folic Acid (Folic Acid -) 1 mg PO DAILY [facility] Last Admin: 12/04/17 10:01 Dose: 1 mg Gabapentin (Neurontin -) 400 mg PO TID [facility] Last Admin: 12/04/17 13:59 Dose: 400 mg Insulin Aspart (Novolog Vial Sliding Scale -) 1 vial SQ ACHS [facility]; Protocol Last Admin: 12/04/17 11:28 Dose: Not Given Insulin Detemir (Levemir Vial) 22 units SQ HS [facility] Last Admin: 12/03/17 23:27 Dose: 22 units Lisinopril (Prinivil) 20 mg PO DAILY [facility] Last Admin: 12/04/17 10:08 Dose: 20 mg Multivitamins/Minerals/Vitamin C (Tab-A-Vit -) 1 tab PO DAILY [facility] Last Admin: 12/04/17 10:08 Dose: 1 tab Ondansetron HCl (Zofran Injection) 4 mg IVPUSH Q4H PRN PRN Reason: NAUSEA AND/OR VOMITING Last Admin: 11/29/17 18:11 Dose: 4 mg Oxycodone HCl (Roxicodone -) 5 mg PO Q6H PRN PRN Reason: PAIN LEVEL 1-5 Oxycodone HCl (Roxicodone -) 10 mg PO Q6H PRN PRN Reason: PAIN LEVEL 6-10 Last Admin: 12/04/17 10:00 Dose: 10 mg Pantoprazole Sodium (Protonix -) 40 mg PO DAILY [facility] Last Admin: 12/04/17 10:01 Dose: 40 mg Promethazine HCl (Phenergan Injection -) 12.5 mg IVPB Q6H PRN PRN Reason: NAUSEA-FOR RESCUE AFTER 15 MIN Zinc Sulfate (Orazinc -) 220 mg PO BID@0800,2200 [facility] Last Admin: 12/04/17 10:01 Dose: 220 mg CBC, BMP 11/30/17 06:00 11/30/17 06:00 Physical Exam. Constitutional: Yes: No Distress, Comfortable. Eyes: Yes: Conjunctiva Clear Neck: Yes: Supple. no jvd Cardiovascular: Yes: Regular Rate and Rhythm Respiratory: Yes: Diminished at bases Gastrointestinal: Yes: Soft, NT. bs + Edema: No Wound/Incision: Yes: Other (Right heel chronic wound-) s/p left BKA Assessment/Plan In summary 52 y.o. female with PMH of Uncontrolled DM, PAD s/p Rt fem-tibial bypass, s/p Lt BKA, HTN, HLD, depression and chronic Rt heel ulcer s/p debridement on and course of antibiotics re-admitted with malodorous drainage from Rt heel wound --with exposed bone) - s/p integra placement continue abx--on po wound vac placed s/p graft placement and debridement monitor bp/bgm awaiting [facility]. Stable. Problem List - Problems (1) Diabetic foot ulcer Code(s): E11.621 - TYPE 2 DIABETES MELLITUS WITH FOOT ULCER; L97.509 - NON- PRESSURE CHRONIC ULCER OTH PRT UNSP FOOT W UNSP SEVERITY (2) Anemia Code(s): D64.9 - ANEMIA, UNSPECIFIED (3) S/P BKA (below knee amputation) unilateral Code(s): Z89.519 - ACQUIRED ABSENCE OF UNSPECIFIED LEG BELOW KNEE Problem List - Problems (1) Diabetic foot ulcer Code(s): E11.621 - TYPE 2 DIABETES MELLITUS WITH FOOT ULCER; L97.509 - NON- PRESSURE CHRONIC ULCER OTH PRT UNSP FOOT W UNSP SEVERITY (2) Anemia Code(s): D64.9 - ANEMIA, UNSPECIFIED (3) S/P BKA (below knee amputation) unilateral Code(s): Z89.519 - ACQUIRED ABSENCE OF UNSPECIFIED LEG BELOW KNEE Problem List - Problems (1) Diabetic foot ulcer Code(s): E11.621 - TYPE 2 DIABETES MELLITUS WITH FOOT ULCER; L97.509 - NON- PRESSURE CHRONIC ULCER OTH PRT UNSP FOOT W UNSP SEVERITY (2) Anemia Code(s): D64.9 - ANEMIA, UNSPECIFIED (3) S/P BKA (below knee amputation) unilateral Code(s): Z89.519 - ACQUIRED ABSENCE OF UNSPECIFIED LEG BELOW KNEE
--- NOTE | 2017-12-04 14:57 | PN ---
Progress Note, Physician History of Present Illness: Pt without new complaints. Remains afebrile, pain controlled. - Current Medication List Current Medications: Active Medications Acetaminophen (Tylenol -) 650 mg PO Q6H PRN PRN Reason: PAIN LEVEL 1-5 Amlodipine Besylate (Norvasc -) 10 mg PO DAILY [facility] Last Admin: 12/04/17 10:01 Dose: 10 mg Ascorbic Acid (Vitamin C -) 500 mg PO BID [facility] Last Admin: 12/04/17 10:02 Dose: 500 mg Aspirin (Asa -) 81 mg PO DAILY [facility] Last Admin: 12/04/17 10:02 Dose: 81 mg Atorvastatin Calcium (Lipitor -) 80 mg PO HS [facility] Last Admin: 12/03/17 23:29 Dose: 80 mg Bacitracin (Bacitracin -) 1 applic TP DAILY [facility] Last Admin: 12/04/17 10:02 Dose: 1 applic Carvedilol (Coreg -) 12.5 mg PO BID [facility] Last Admin: 12/04/17 10:01 Dose: 12.5 mg Clopidogrel Bisulfate (Plavix -) 75 mg PO DAILY [facility] Last Admin: 12/04/17 10:01 Dose: 75 mg Docusate Sodium (Colace -) 100 mg PO BID [facility] Last Admin: 12/04/17 10:01 Dose: 100 mg Doxycycline Hyclate (Vibramycin -) 100 mg PO BID@1000,1800 [facility] Last Admin: 12/04/17 10:02 Dose: 100 mg Duloxetine HCl (Cymbalta -) 60 mg PO DAILY [facility] Last Admin: 12/04/17 10:02 Dose: 60 mg Enoxaparin Sodium (Lovenox -) 40 mg SQ DAILY [facility] Last Admin: 12/04/17 10:00 Dose: 40 mg Ferrous Sulfate (Feosol -) 325 mg PO DAILY@0800 [facility] Last Admin: 12/04/17 10:01 Dose: 325 mg Folic Acid (Folic Acid -) 1 mg PO DAILY [facility] Last Admin: 12/04/17 10:01 Dose: 1 mg Gabapentin (Neurontin -) 400 mg PO TID [facility] Last Admin: 12/04/17 13:59 Dose: 400 mg Insulin Aspart (Novolog Vial Sliding Scale -) 1 vial SQ [facility]; Protocol Last Admin: 12/04/17 11:28 Dose: Not Given Insulin Detemir (Levemir Vial) 22 units SQ [facility] Last Admin: 12/03/17 23:27 Dose: 22 units Lisinopril (Prinivil) 20 mg PO DAILY [facility] Last Admin: 12/04/17 10:08 Dose: 20 mg Multivitamins/Minerals/Vitamin C (Tab-A-Vit -) 1 tab PO DAILY [facility] Last Admin: 12/04/17 10:08 Dose: 1 tab Ondansetron HCl (Zofran Injection) 4 mg IVPUSH Q4H PRN PRN Reason: NAUSEA AND/OR VOMITING Last Admin: 11/29/17 18:11 Dose: 4 mg Oxycodone HCl (Roxicodone -) 5 mg PO Q6H PRN PRN Reason: PAIN LEVEL 1-5 Oxycodone HCl (Roxicodone -) 10 mg PO Q6H PRN PRN Reason: PAIN LEVEL 6-10 Last Admin: 12/04/17 10:00 Dose: 10 mg Pantoprazole Sodium (Protonix -) 40 mg PO DAILY [facility] Last Admin: 12/04/17 10:01 Dose: 40 mg Promethazine HCl (Phenergan Injection -) 12.5 mg IVPB Q6H PRN PRN Reason: NAUSEA-FOR RESCUE AFTER 15 MIN Zinc Sulfate (Orazinc -) 220 mg PO BID@0800,2200 [facility] Last Admin: 12/04/17 10:01 Dose: 220 mg - Objective Vital Signs: Vital Signs Temperature 98.3 F 12/04/17 10:00 Pulse Rate 99 H 12/04/17 10:00 Respiratory Rate 188 H 12/04/17 10:00 Blood Pressure 135/64 12/04/17 10:00 O2 Sat by Pulse Oximetry (%) 99 12/04/17 09:00 Constitutional: Yes: No Distress, Calm Cardiovascular: Yes: Regular Rate and Rhythm Respiratory: Yes: Regular Gastrointestinal: Yes: Normal Bowel Sounds, Soft Genitourinary: Yes: WNL Edema: No Integumentary: Yes: WNL Wound/Incision: Yes: Other (Rt heel wound vac in place) Neurological: Yes: Alert, Oriented Labs: CBC, BMP 11/30/17 06:00 11/30/17 06:00 INR, PTT INR 1.05 (0.83-1.09) 11/26/17 09:45 Problem List - Problems (1) Diabetic foot ulcer Code(s): E11.621 - TYPE 2 DIABETES MELLITUS WITH FOOT ULCER; L97.509 - NON- PRESSURE CHRONIC ULCER OTH PRT UNSP FOOT W UNSP SEVERITY (2) Osteomyelitis Code(s): M86.9 - OSTEOMYELITIS, UNSPECIFIED Qualifiers: Osteomyelitis type: unspecified type Osteomyelitis location: foot Laterality: right Qualified Code(s): M86.9 - Osteomyelitis, unspecified (3) Anemia Code(s): D64.9 - ANEMIA, UNSPECIFIED (4) Depression Code(s): F32.9 - MAJOR DEPRESSIVE DISORDER, SINGLE EPISODE, UNSPECIFIED Qualifiers: Depression Type: other depression Qualified Code(s): F32.89 - Other specified depressive episodes (5) Diabetes mellitus Code(s): E11.9 - TYPE 2 DIABETES MELLITUS WITHOUT COMPLICATIONS Qualifiers: Diabetes mellitus type: type 2 Diabetes mellitus detention insulin use: without intermediate accountant use Diabetes mellitus complication status: with circulatory complication Diabetes mellitus complication detail: with peripheral angiopathy with gangrene Qualified Code(s): E11.52 - Type 2 diabetes mellitus with diabetic peripheral angiopathy with gangrene (6) S/P BKA (below knee amputation) unilateral Code(s): Z89.519 - ACQUIRED ABSENCE OF UNSPECIFIED LEG BELOW KNEE (7) S/P vascular bypass Code(s): Z95.828 - PRESENCE OF OTHER VASCULAR IMPLANTS AND GRAFTS (8) HTN (hypertension) Code(s): I10 - ESSENTIAL (PRIMARY) HYPERTENSION Qualifiers: Hypertension type: essential hypertension Qualified Code(s): I10 - Essential (primary) hypertension (9) Hypercholesterolemia Code(s): E78.00 - PURE HYPERCHOLESTEROLEMIA, UNSPECIFIED Assessment/Plan 52 y.o. female with PMH of Uncontrolled DM, PAD s/p Rt fem-tibial bypass, s/p Lt BKA, HTN, HLD, depression and chronic Rt heel ulcer s/p debridement on Infected Diabetic Rt heel ulcer/OM s/p debridement/graft placement Uncontrolled DM PAD s/p RLE bypass s/p Lt BKA HTN HLD -- on oral antibiotics -- wound vac in place -- awaiting placement currently stable
[2017-12-04] MEDS ORDERED: oxyCODONE HCL 5 MG TABLET PO PRN (16:53)
[2017-12-04] MEDS: ATORVASTATIN CA 80 MG TABLET (FP) PO SCH (22:37)
[2017-12-04] MEDS: INSULIN (LEVEMIR) 100 UNITS/ML UNITS SQ SCH (23:10)
[2017-12-05] MEDS ORDERED: PT OWN MED DRAWER 7, Y5N ONE (02:41)
[2017-12-05] MEDS: GABAPENTIN 400 MG CAPSULE (FP) PO SCH ×2 (05:56→13:52)
[2017-12-05] MEDS: INSULIN SLIDING SCALE (NOVOLOG) 1 VIAL SQ SCH ×3 (06:15→16:11)
--- NOTE | 2017-12-05 09:07 | PN ---
Progress Note, Physician History of Present Illness: stable no new issues awaiting placement no complaints - Current Medication List Current Medications: Active Medications Acetaminophen (Tylenol -) 650 mg PO Q6H PRN PRN Reason: PAIN LEVEL 1-5 Amlodipine Besylate (Norvasc -) 10 mg PO DAILY [facility] Last Admin: 12/04/17 10:01 Dose: 10 mg Ascorbic Acid (Vitamin C -) 500 mg PO BID [facility] Last Admin: 12/04/17 22:37 Dose: 500 mg Aspirin (Asa -) 81 mg PO DAILY [facility] Last Admin: 12/04/17 10:02 Dose: 81 mg Atorvastatin Calcium (Lipitor -) 80 mg PO HS [facility] Last Admin: 12/04/17 22:37 Dose: 80 mg Bacitracin (Bacitracin -) 1 applic TP DAILY [facility] Last Admin: 12/04/17 10:02 Dose: 1 applic Carvedilol (Coreg -) 12.5 mg PO BID [facility] Last Admin: 12/04/17 22:37 Dose: 12.5 mg Clopidogrel Bisulfate (Plavix -) 75 mg PO DAILY [facility] Last Admin: 12/04/17 10:01 Dose: 75 mg Docusate Sodium (Colace -) 100 mg PO BID [facility] Last Admin: 12/04/17 22:37 Dose: 100 mg Doxycycline Hyclate (Vibramycin -) 100 mg PO BID@1000,1800 [facility] Last Admin: 12/04/17 17:00 Dose: 100 mg Duloxetine HCl (Cymbalta -) 60 mg PO DAILY [facility] Last Admin: 12/04/17 10:02 Dose: 60 mg Enoxaparin Sodium (Lovenox -) 40 mg SQ DAILY [facility] Last Admin: 12/04/17 10:00 Dose: 40 mg Ferrous Sulfate (Feosol -) 325 mg PO DAILY@0800 [facility] Last Admin: 12/04/17 10:01 Dose: 325 mg Folic Acid (Folic Acid -) 1 mg PO DAILY [facility] Last Admin: 12/04/17 10:01 Dose: 1 mg Gabapentin (Neurontin -) 400 mg PO TID [facility] Last Admin: 12/05/17 05:56 Dose: 400 mg Insulin Aspart (Novolog Vial Sliding Scale -) 1 vial SQ [facility]; Protocol Last Admin: 12/05/17 06:15 Dose: Not Given Insulin Detemir (Levemir Vial) 22 units SQ [facility] Last Admin: 12/04/17 23:10 Dose: 22 units Lisinopril (Prinivil) 20 mg PO DAILY [facility] Last Admin: 12/04/17 10:08 Dose: 20 mg Multivitamins/Minerals/Vitamin C (Tab-A-Vit -) 1 tab PO DAILY [facility] Last Admin: 12/04/17 10:08 Dose: 1 tab Ondansetron HCl (Zofran Injection) 4 mg IVPUSH Q4H PRN PRN Reason: NAUSEA AND/OR VOMITING Last Admin: 11/29/17 18:11 Dose: 4 mg Oxycodone HCl (Roxicodone -) 5 mg PO Q6H PRN PRN Reason: PAIN LEVEL 1-5 Oxycodone HCl (Roxicodone -) 10 mg PO Q6H PRN PRN Reason: PAIN LEVEL 6-10 Last Admin: 12/04/17 22:45 Dose: 10 mg Pantoprazole Sodium (Protonix -) 40 mg PO DAILY [facility] Last Admin: 12/04/17 10:01 Dose: 40 mg Promethazine HCl (Phenergan Injection -) 12.5 mg IVPB Q6H PRN PRN Reason: NAUSEA-FOR RESCUE AFTER 15 MIN Zinc Sulfate (Orazinc -) 220 mg PO BID@0800,2200 [facility] Last Admin: 12/04/17 22:37 Dose: 220 mg - Objective Vital Signs: Vital Signs Temperature 98 F 12/05/17 08:49 Pulse Rate 90 12/05/17 08:49 Respiratory Rate 18 12/05/17 08:49 Blood Pressure 148/79 12/05/17 08:49 O2 Sat by Pulse Oximetry (%) 99 12/04/17 09:00 Constitutional: Yes: No Distress, Calm Cardiovascular: Yes: Regular Rate and Rhythm Respiratory: Yes: Regular, CTA Bilaterally Gastrointestinal: Yes: Normal Bowel Sounds, Soft Extremities: Yes: Other Wound/Incision: Yes: Other (wound vac in place) Neurological: Yes: Alert, Oriented Psychiatric: Yes: Alert, Oriented Labs: CBC, BMP 11/30/17 06:00 11/30/17 06:00 INR, PTT INR 1.05 (0.83-1.09) 11/26/17 09:45 Assessment/Plan - Problems (1) Diabetic foot ulcer Code(s): E11.621 - TYPE 2 DIABETES MELLITUS WITH FOOT ULCER; L97.509 - NON- PRESSURE CHRONIC ULCER OTH PRT UNSP FOOT W UNSP SEVERITY (2) Osteomyelitis Code(s): M86.9 - OSTEOMYELITIS, UNSPECIFIED Qualifiers: Osteomyelitis type: unspecified type Osteomyelitis location: foot Laterality: right Qualified Code(s): M86.9 - Osteomyelitis, unspecified (3) Anemia Code(s): D64.9 - ANEMIA, UNSPECIFIED (4) Depression Code(s): F32.9 - MAJOR DEPRESSIVE DISORDER, SINGLE EPISODE, UNSPECIFIED Qualifiers: Depression Type: other depression Qualified Code(s): F32.89 - Other specified depressive episodes (5) Diabetes mellitus Code(s): E11.9 - TYPE 2 DIABETES MELLITUS WITHOUT COMPLICATIONS Qualifiers: Diabetes mellitus type: type 2 Diabetes mellitus group home insulin use: without group home use Diabetes mellitus complication status: with circulatory complication Diabetes mellitus complication detail: with peripheral angiopathy with gangrene Qualified Code(s): E11.52 - Type 2 diabetes mellitus with diabetic peripheral angiopathy with gangrene (6) S/P BKA (below knee amputation) unilateral Code(s): Z89.519 - ACQUIRED ABSENCE OF UNSPECIFIED LEG BELOW KNEE (7) S/P vascular bypass Code(s): Z95.828 - PRESENCE OF OTHER VASCULAR IMPLANTS AND GRAFTS (8) HTN (hypertension) Code(s): I10 - ESSENTIAL (PRIMARY) HYPERTENSION Qualifiers: Hypertension type: essential hypertension Qualified Code(s): I10 - Essential (primary) hypertension (9) Hypercholesterolemia Code(s): E78.00 - PURE HYPERCHOLESTEROLEMIA, UNSPECIFIED (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 female with PMH of Uncontrolled DM, PAD s/p Rt fem-tibial bypass, s/p Lt BKA, HTN, HLD, depression and chronic Rt heel ulcer s/p debridement on and course of antibiotics re-admitted with malodorous drainage from Rt heel wound (described as 5X5 cm, with exposed bone) for past few days. Pt currently with wound vac on, +tenderness, elevated ESR. Infected Diabetic Rt heel ulcer/OM Uncontrolled DM PAD s/p RLE bypass s/p Lt BKA HTN HLD plan continue oral abx finish abx course wound care rest as per the team
[2017-12-05] MEDS: ENOXAPARIN NA (PORCINE) 40 MG/0.4 ML DISP.SYRIN SQ SCH (09:47)
[2017-12-05] MEDS: amLODIPine BESYLATE 10 MG TABLET (FP) PO SCH (09:47)
[2017-12-05] MEDS: DOXYCYCLINE HYCLATE 100 MG CAPSULE PO SCH ×2 (09:47→17:42)
[2017-12-05] MEDS: CLOPIDOGREL BISULFATE 75 MG TABLET (FP) PO SCH (09:48)
[2017-12-05] MEDS: CARVEDILOL 12.5 MG TABLET (FP) PO SCH (09:48)
[2017-12-05] MEDS: ASPIRIN 81 MG CHEWABLE TABLETS PO SCH (09:48)
[2017-12-05] MEDS: PANTOPRAZOLE 40 MG TABLET (FP) PO SCH (09:48)
[2017-12-05] MEDS: ASCORBIC ACID 500 MG TABLET (FP) PO SCH (09:48)
[2017-12-05] MEDS: MULTIVITAMINS (DAILY MVI) TABLET (FP) PO SCH (09:48)
[2017-12-05] MEDS: LISINOPRIL 20 MG TABLET (FP) PO SCH (09:49)
[2017-12-05] MEDS: DULoxetine HCL 30 MG CAPSULE.DR (FP) PO SCH (09:49)
[2017-12-05] MEDS: FOLIC ACID 1 MG TABLET (FP) PO SCH (09:49)
[2017-12-05] MEDS: ZINC SULFATE 220 MG CAPSULE (FP) PO SCH (09:49)
[2017-12-05] MEDS: FERROUS SO4 325 MG TABLET (FP) PO SCH (09:49)
[2017-12-05] MEDS: DOCUSATE SODIUM 100 MG CAPSULE (FP) PO SCH (09:49)
[2017-12-05] MEDS: BACITRACIN 15 GM TUBE TOPICAL OINTMENT TP SCH (09:50)
[2017-12-05] MEDS: oxyCODONE HCL 5 MG TABLET PO PRN (11:42)
--- NOTE | 2017-12-05 12:22 | PN ---
Progress Note (short form) - Note Progress Note: Comfortable feels well no new issues. Vital Signs Period Temp Pulse Resp BP Sys/Rahman Pulse Ox Last 24 Hr 97.6 F-98.3 F 90-102 18-20 142-158/69-79 99 Active Medications Acetaminophen (Tylenol -) 650 mg PO Q6H PRN PRN Reason: PAIN LEVEL 1-5 Amlodipine Besylate (Norvasc -) 10 mg PO DAILY [facility] Last Admin: 12/04/17 10:01 Dose: 10 mg Ascorbic Acid (Vitamin C -) 500 mg PO BID [facility] Last Admin: 12/04/17 10:02 Dose: 500 mg Aspirin (Asa -) 81 mg PO DAILY [facility] Last Admin: 12/04/17 10:02 Dose: 81 mg Atorvastatin Calcium (Lipitor -) 80 mg PO HS [facility] Last Admin: 12/03/17 23:29 Dose: 80 mg Bacitracin (Bacitracin -) 1 applic TP DAILY [facility] Last Admin: 12/04/17 10:02 Dose: 1 applic Carvedilol (Coreg -) 12.5 mg PO BID [facility] Last Admin: 12/04/17 10:01 Dose: 12.5 mg Clopidogrel Bisulfate (Plavix -) 75 mg PO DAILY [facility] Last Admin: 12/04/17 10:01 Dose: 75 mg Docusate Sodium (Colace -) 100 mg PO BID [facility] Last Admin: 12/04/17 10:01 Dose: 100 mg Doxycycline Hyclate (Vibramycin -) 100 mg PO BID@1000,1800 [facility] Last Admin: 12/04/17 10:02 Dose: 100 mg Duloxetine HCl (Cymbalta -) 60 mg PO DAILY [facility] Last Admin: 12/04/17 10:02 Dose: 60 mg Enoxaparin Sodium (Lovenox -) 40 mg SQ DAILY [facility] Last Admin: 12/04/17 10:00 Dose: 40 mg Ferrous Sulfate (Feosol -) 325 mg PO DAILY@0800 [facility] Last Admin: 12/04/17 10:01 Dose: 325 mg Folic Acid (Folic Acid -) 1 mg PO DAILY [facility] Last Admin: 12/04/17 10:01 Dose: 1 mg Gabapentin (Neurontin -) 400 mg PO TID [facility] Last Admin: 12/04/17 13:59 Dose: 400 mg Insulin Aspart (Novolog Vial Sliding Scale -) 1 vial SQ ACHS [facility]; Protocol Last Admin: 12/04/17 11:28 Dose: Not Given Insulin Detemir (Levemir Vial) 22 units SQ HS [facility] Last Admin: 12/03/17 23:27 Dose: 22 units Lisinopril (Prinivil) 20 mg PO DAILY [facility] Last Admin: 12/04/17 10:08 Dose: 20 mg Multivitamins/Minerals/Vitamin C (Tab-A-Vit -) 1 tab PO DAILY [facility] Last Admin: 12/04/17 10:08 Dose: 1 tab Ondansetron HCl (Zofran Injection) 4 mg IVPUSH Q4H PRN PRN Reason: NAUSEA AND/OR VOMITING Last Admin: 11/29/17 18:11 Dose: 4 mg Oxycodone HCl (Roxicodone -) 5 mg PO Q6H PRN PRN Reason: PAIN LEVEL 1-5 Oxycodone HCl (Roxicodone -) 10 mg PO Q6H PRN PRN Reason: PAIN LEVEL 6-10 Last Admin: 12/04/17 10:00 Dose: 10 mg Pantoprazole Sodium (Protonix -) 40 mg PO DAILY [facility] Last Admin: 12/04/17 10:01 Dose: 40 mg Promethazine HCl (Phenergan Injection -) 12.5 mg IVPB Q6H PRN PRN Reason: NAUSEA-FOR RESCUE AFTER 15 MIN Zinc Sulfate (Orazinc -) 220 mg PO BID@0800,2200 [facility] Last Admin: 12/04/17 10:01 Dose: 220 mg CBC, BMP 11/30/17 06:00 11/30/17 06:00 Physical Exam. Constitutional: Yes: No Distress, Comfortable. Eyes: Yes: Conjunctiva Clear Neck: Yes: Supple. no jvd Cardiovascular: Yes: Regular Rate and Rhythm Respiratory: Yes: Diminished at bases Gastrointestinal: Yes: Soft, NT. bs + Edema: No Wound/Incision: Yes: Other (Right heel chronic wound-) s/p left BKA Assessment/Plan In summary 52 y.o. female with PMH of Uncontrolled DM, PAD s/p Rt fem-tibial bypass, s/p Lt BKA, HTN, HLD, depression and chronic Rt heel ulcer s/p debridement on and course of antibiotics re-admitted with malodorous drainage from Rt heel wound --with exposed bone) - s/p integra placement continue abx--on po wound vac placed s/p graft placement and debridement monitor bp/bgm awaiting authorization for transfer to alf.-- Anticipate today. Stable. Problem List - Problems (1) Diabetic foot ulcer Code(s): E11.621 - TYPE 2 DIABETES MELLITUS WITH FOOT ULCER; L97.509 - NON- PRESSURE CHRONIC ULCER OTH PRT UNSP FOOT W UNSP SEVERITY (2) Anemia Code(s): D64.9 - ANEMIA, UNSPECIFIED (3) S/P BKA (below knee amputation) unilateral Code(s): Z89.519 - ACQUIRED ABSENCE OF UNSPECIFIED LEG BELOW KNEE Problem List - Problems (1) Diabetic foot ulcer Code(s): E11.621 - TYPE 2 DIABETES MELLITUS WITH FOOT ULCER; L97.509 - NON- PRESSURE CHRONIC ULCER OTH PRT UNSP FOOT W UNSP SEVERITY (2) Anemia Code(s): D64.9 - ANEMIA, UNSPECIFIED (3) S/P BKA (below knee amputation) unilateral Code(s): Z89.519 - ACQUIRED ABSENCE OF UNSPECIFIED LEG BELOW KNEE Problem List - Problems (1) Diabetic foot ulcer Code(s): E11.621 - TYPE 2 DIABETES MELLITUS WITH FOOT ULCER; L97.509 - NON- PRESSURE CHRONIC ULCER OTH PRT UNSP FOOT W UNSP SEVERITY (2) Anemia Code(s): D64.9 - ANEMIA, UNSPECIFIED (3) S/P BKA (below knee amputation) unilateral Code(s): Z89.519 - ACQUIRED ABSENCE OF UNSPECIFIED LEG BELOW KNEE
[2017-12-05] MEDS ORDERED: ONDANSETRON 4 MG TABLET PO PRN (13:26)
[2017-12-05 17:33] VITALS: BP 151/81; PULSE 89; TEMP 97.8
--- NOTE | 2017-12-05 18:06 | PN ---
Progress Note (short form) - Note Progress Note: Vascular Surgery: Dressing changed today. The skin edges were macerated on the inferior aspect. Integra graft adherent. Vital Signs Period Temp Pulse Resp BP Sys/Rahman Pulse Ox Last 24 Hr 97.6 F-98.2 F 87-102 18-20 145-159/69-81 99 Right wound: Integra graft adherent. No drainage noted. Reapplied adaptic and black foam. A/P: 52 yo female s/p debridment and integra dressing to right heel Continue adaptic/black foam with vac dressing and change Tuesday/. Follow-up with Dr. Hare in 2 weeks If vac needs to be removed for transport to nursing facilty please dress wound with adaptic/wet to dry and kerlix. reapply vac at nursing facilty as per the discharge instructions. D/w Dr. Hare
== END 2017-12-05 19:45 | DRG 361 ==
LOC: JER 18:31 → JERBED 22:15 → J5S 11-18 01:22 → J7W 11-29 19:43
PROVIDERS: ADMIT Internal Medicine; ATTEND Internal Medicine
PROC: 0QBL0ZZ Excision of Right Tarsal, Open Approach (ICD-10-PCS; principal; 2017-11-22)
PROC: 0JBQ0ZZ Excision of Right Foot Subcutaneous Tissue and Fascia, Open Approach (ICD-10-PCS; 2017-11-22)
PROC: 30233N1 Transfusion of Nonautologous Red Blood Cells into Peripheral Vein, Percutaneous Approach (ICD-10-PCS; 2017-11-23)
PROC: 0HBMXZZ Excision of Right Foot Skin, External Approach (ICD-10-PCS; 2017-11-28)
PROC: 2W1SX6Z Compression of Right Foot using Pressure Dressing (ICD-10-PCS; 2017-11-28)
PROC: 0LU Tendons, Supplement (ICD-10-PCS; 2017-11-28)
DX: E11.621 Type 2 diabetes mellitus with foot ulcer (principal); L97.418 Non-pressure chronic ulcer of right heel and midfoot with other specified severity; E11.69 Type 2 diabetes mellitus with other specified complication; E11.51 Type 2 diabetes mellitus with diabetic peripheral angiopathy without gangrene; M86.10 Other acute osteomyelitis, unspecified site; F32.9 Major depressive disorder, single episode, unspecified; E11.65 Type 2 diabetes mellitus with hyperglycemia; E78.5 Hyperlipidemia, unspecified; I10 Essential (primary) hypertension; D64.9 Anemia, unspecified; D25.9 Leiomyoma of uterus, unspecified; E78.00 Pure hypercholesterolemia, unspecified; Z88.0 Allergy status to penicillin; Z89.511 Acquired absence of right leg below knee
CPT/HCPCS: 36415; 36430; 71045-TC-FY; 73610-TC-RT-FY; 73630-TC-RT-FY; 74018-TC-FY; 76700-TC; 76856-TC; 80048; 80053; 81003; 81015; 82272; 82962; 83735; 84100; 85025; 85027; 85610; 85651; 85730; 86140; 86850; 86900; 86901; 86922; 87040; 87086; 88307-TC; 93005; 93010; 94760; 97162-GP; 99285-25; P9038; P9058

== ENCOUNTER 2018-01-07 14:35 | Emergency (ER) | payer OTHER ==
--- NOTE | 2018-01-07 15:27 | PDOC ---
History of Present Illness - General History Source: Patient Exam Limitations: No Limitations - History of Present Illness Initial Comments: 01/07/18 15:22 52 year old woman history of HTN, HLD, L BKA (Bel[place]), R foot ulceration/ wound and fibroids from [facility] from 2 days of diffuse abdominal pain now with nausea and 5x episodes of vomiting white sputum. The patient was seen by a [facility] doctor who ordered an Abd XR that showed significant stool burden. The patient had an enema and had 2 well formed bowel movements. The patient states that her stomach feels "hard". She also notes that she has been on antibiotics for her R foot and get wound dressings changed every day. At [facility] the patient was on a clear liquid diet. The patient denies shortness of breath, chest pain, fevers or headaches. Patient wears diaper but does not have incontinence. Wears primarily due to difficulty ambulating to the bathroom. denies sexual activity <Elle Patterson - Last Filed: 01/07/18 19:20> <Meera Tejada - Last Filed: 01/07/18 20:11> - General Chief Complaint: Pain Stated Complaint: ABD PAIN Time Seen by Provider: 01/07/18 15:02 Past History - Past Medical History Anemia: Yes Asthma: No Cancer: No Cardiac Disorders: No CVA: No COPD: No CHF: No Dementia: No Diabetes: Yes (UNCONTROLLED) GI Disorders: No Disorders: No HTN: Yes Hypercholesterolemia: Yes Liver Disease: No Psychiatric Problems: Yes (MDD) Seizures: No Thyroid Disease: No - Immunization History Immunization Up to Date: Yes - Suicide/Smoking/Psychosocial Hx Smoking History: Never smoked Have you smoked in the past 12 months: No Hx Alcohol Use: No Drug/Substance Use Hx: No Substance Use Type: None Hx Substance Use Treatment: No <Elle Patterson - Last Filed: 01/07/18 19:20> <Meera Tejada - Last Filed: 01/07/18 20:11> - Past Medical History Allergies/Adverse Reactions: Allergies Allergy/AdvReac Type Severity Reaction Status Date / Time Penicillins Allergy Unknown "OUT OF IT" Verified 01/04/18 15:04 Home Medications: Ambulatory Orders Acetaminophen [Tylenol] 650 mg PO Q6H PRN 09/14/17 Glipizide [Glipizide Xl] 5 mg PO BID 09/14/17 Lisinopril [Prinivil] 20 mg PO DAILY 09/14/17 Amlodipine Besylate [Norvasc -] 10 mg PO DAILY #30 tablet 10/05/17 Ascorbic Acid [Vitamin C -] 500 mg PO BID #60 tablet 10/05/17 Atorvastatin Ca [Lipitor] 80 mg PO HS #30 tablet 10/05/17 Carvedilol [Coreg -] 12.5 mg PO BID #30 tablet 10/05/17 Docusate Sodium [Colace -] 100 mg PO BID #30 capsule 10/05/17 Ferrous Sulfate [Feosol] 325 mg PO DAILY #30 tablet 10/05/17 Folic Acid 1 mg PO DAILY #30 tablet 10/05/17 Aspirin Coated [Ecotrin -] 81 mg PO DAILY tablet.ec 10/19/17 Clopidogrel Bisulfate [Plavix -] 75 mg PO DAILY tablet 10/19/17 Losartan Potassium 50 mg PO DAILY 10/26/17 Duloxetine HCl 60 mg PO DAILY 11/17/17 Gabapentin 400 mg PO TID 11/17/17 Insulin Glargine,Hum.rec.anlog [Basaglar Kwikpen U-100] 22 unit SQ HS 11/17/17 Insulin Lispro [Admelog] See Protocol SQ BIDAC 11/17/17 Multivitamin [One Daily] 1 each PO DAILY 11/17/17 Oxycodone HCl 5 mg PO Q8H PRN 11/17/17 Insulin Sliding Scale [Novolog Vial Sliding Scale -] 1 vial SQ ACHS units 12/03 Enoxaparin [Lovenox -] 30 mg SQ DAILY 01/07/18 Ergocalciferol (Vitamin D2) [Vitamin D2] 50,000 unit PO WEEKLY 01/07/18 Omeprazole 20 mg PO DAILY 01/07/18 Ondansetron HCl 4 mg PO TID PRN 01/07/18 Sitagliptin Phosphate [Januvia] 25 mg PO DAILY 01/07/18 Zinc Sulfate 220 mg PO BID 01/07/18 Review of Systems - Review of Systems Able to Perform ROS?: Yes Is the patient limited [place] proficient: No <Elle Patterson - Last Filed: 01/07/18 19:20> *Physical Exam - Physical Exam Comments: 01/07/18 16:26 GENERAL: Awake, alert, and fully oriented, in no acute distress HEAD: No signs of trauma, normocephalic, atraumatic EYES: PERRLA, EOMI, sclera anicteric, conjunctiva clear ENT: Auricles normal inspection, hearing grossly normal, nares patent, oropharynx clear without exudates. Moist mucosa NECK: Normal ROM, supple, no lymphadenopathy, JVD, or masses LUNGS: No distress, speaks full sentences, clear to auscultation bilaterally HEART: Regular rate and rhythm, normal S1 and S2, no murmurs, rubs or gallops, peripheral pulses normal and equal bilaterally. ABDOMEN: + hard masses palpated in bilateral lower quadrant, + LLQ tenderness to palpation, normoactive bowel sounds. No guarding, no rebound. No masses EXTREMITIES : + L BKA, R leg with longitudinal scar and wrapped R wound w/ 3cm diameter NEUROLOGICAL: Cranial nerves II through XII grossly intact. Normal speech, no focal sensorimotor deficits SKIN: Warm, Dry, normal turgor, no rashes or lesions noted PELVIC: physiologic fluid, unable to visualize cervix 2/2 to pain on exam. <Elle Patterson - Last Filed: 01/07/18 19:20> - Vital Signs Last Vital Signs Temp Pulse Resp BP Pulse Ox 97.9 F 98 H 17 175/81 H 99 01/07/18 15:28 01/07/18 15:28 01/07/18 15:28 01/07/18 15:28 01/07/18 15:28 <Meera Tejada - Last Filed: 01/07/18 20:11> ED Treatment Course - LABORATORY CBC & Chemistry Diagram: 01/07/18 15:46 01/07/18 15:46 <Elle Patterson - Last Filed: 01/07/18 19:20> - LABORATORY CBC & Chemistry Diagram: 01/07/18 15:46 01/07/18 15:46 - ADDITIONAL ORDERS Additional order review: Laboratory Results 01/07/18 01/07/18 01/07/18 15:48 15:48 15:46 Sodium Potassium Chloride Carbon Dioxide Anion Gap BUN Creatinine Creat Clearance w eGFR Random Glucose Lactic Acid 1.5 Calcium Total Bilirubin AST ALT Alkaline Phosphatase Total Protein Albumin Lipase Urine Color Ltyellow Urine Appearance Clear Urine pH 6.0 Ur Specific Rosebud 1.015 Urine Protein 3+ H Urine Glucose (UA) 1+ H Urine Ketones Negative Urine Blood Negative Urine Nitrite Negative Urine Bilirubin Negative Urine Urobilinogen Negative Ur Leukocyte Esterase Negative Urine WBC (Auto) 1 Urine RBC (Auto) 4 Ur Epithelial Cells Rare Hyaline Casts 1 Urine Mucus Rare Urine HCG, Qual Negative 01/07/18 15:46 Sodium 137 Potassium 4.6 Chloride 104 Carbon Dioxide 26 Anion Gap 7 L BUN 29 H Creatinine 0.8 Creat Clearance w eGFR > 60 Random Glucose 166 H Lactic Acid Calcium 9.5 Total Bilirubin 0.5 AST 25 ALT 50 Alkaline Phosphatase 123 H Total Protein 8.5 H Albumin 3.6 Lipase 230 Urine Color Urine Appearance Urine pH Ur Specific Rosebud Urine Protein Urine Glucose (UA) Urine Ketones Urine Blood Urine Nitrite Urine Bilirubin Urine Urobilinogen Ur Leukocyte Esterase Urine WBC (Auto) Urine RBC (Auto) Ur Epithelial Cells Hyaline Casts Urine Mucus Urine HCG, Qual 01/07/18 15:46 RBC 3.82 MCV 90.8 MCHC 34.6 RDW 14.0 MPV 7.6 Neutrophils % 69.9 D Lymphocytes % 19.5 D Monocytes % 7.7 Eosinophils % 1.5 Basophils % 1.4 - Medications Given in the ED: ED Medications Discontinued Medications Generic Name Dose Route Start Last Admin Trade Name Freq PRN Reason Stop Dose Admin Acetaminophen 1,000 mg 01/07/18 15:51 01/07/18 16:06 Ofirmev Injection - IVPB 01/07/18 15:52 1,000 mg ONCE ONE Administration Ondansetron HCl 4 mg 01/07/18 15:51 01/07/18 16:00 Zofran Injection IVPUSH 01/07/18 15:52 4 mg ONCE ONE Administration <Meera Tejada - Last Filed: 01/07/18 20:11> Medical Decision Making - Medical Decision Making 01/07/18 15:39 52 year old woman history of HTN, HLD, L BKA (Belen), R foot ulceration/ wound and fibroids from [facility] from 2 days of diffuse abdominal pain now with nausea and 5x episodes of vomiting white sputum. The patient was seen by a [facility] doctor who ordered an Abd XR that showed significant stool burden. The patient had an enema and had 2 well formed bowel movements. DDX including but not limited to: fibroids vs gastroparesis vs gastroenteritis vs diverticulosis. W/U: - cbc, cmp, lactic acid - ua, ucx, upreg - TVUS - TX: - ED Course: Patient stable 01/07/18 15:58 Call placed to [facility]. Gave following history. abd, nasea yesterday xr- fecal impaction enema - bm twice still complaining refused al medication no fever htn, dm, finished abx for wound, hld, anemia 01/07/18 18:42 Daughter at bedside. 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 01/07/18 18:45 Patient reassessed. Still with abdominal tenderness, LLQ > RLQ. Nausea resolved. Abd and pelvic CT ordered. 01/07/18 18:52 TVUS: large fibroids, largest at 7.3cm, obscuring view of endometrial stripe and ovaries. 01/07/18 19:18 Dispo: Abd CT, PO trial, pain control, d/c if all workup negative Pt. signed out to Dr. Enamorado. <Elle Patterson - Last Filed: 01/07/18 19:20> *DC/Admit/Observation/Transfer - Discharge Dispostion Decision to Admit order: No <Elle Patterson - Last Filed: 01/07/18 19:20> <Meera Tejada - Last Filed: 01/07/18 20:11> Diagnosis at time of Disposition: Nausea & vomiting, Abdominal pain, Fibroids, Diffuse leiomyomatosis of uterus - Discharge Dispostion Disposition: HOME Condition at time of disposition: Stable - Referrals Referrals: Raymond Romano MD [Primary Care Provider] - Wayne Pradhan MD [Staff Physician] - - Patient Instructions Printed Discharge Instructions: DI for Uterine Fibroids, DI for Abdominal Pain- Adult, Hysterectomy -- Open Surgery, Hysterectomy -- Laparoscopic Surgery Additional Instructions: You were seen in the ED for complaints of abdominal pain, nausea and vomiting. In the ED you were evaluated with labwork and imaging. Your results were unremarkable. There does not appear to be an acute need for immediate hospitalization. You are advised to follow up with your Primary Care Physician within 1 week. You were given a referral to [facility] and are advised to follow up within 1 week. Return to the ED immediately if you experience worsening abdominal pain, worsening nausea or vomiting, blood in vomit, urine or stool, fevers, pain with urination, chest pain or shortness of breath. - Post Discharge Activity
[2018-01-07] MEDS ORDERED: ONDANSETRON 4 MG/2 ML VIAL IVPUSH ONE (15:51)
[2018-01-07] MEDS ORDERED: ACETAMINOPHEN 1000 MG/100 ML VIAL (NON FORMULARY) IVPB ONE (15:51)
[2018-01-07 15:57] LABS: BASO % 1.4 % (0-2.0); EOS % 1.5 % (0-4.5); HEMATOCRIT 34.7 % (32.4-45.2); LYMPH % 19.5 % (8-40); MCH 31.4 pg (25.7-33.7); MCHC 34.6 g/dl (32.0-36.0); MEAN CELL VOLUME 90.8 fl (80-96); MEAN PLT VOLUME 7.6 fl (7.5-11.1); MONO % 7.7 % (3.8-10.2); NEUT % 69.9 % (42.8-82.8); PLATELET COUNT 426 K/MM3 (134-434); RBC 3.82 M/mm3 (3.60-5.2)
[2018-01-07] MEDS ORDERED: ACETAMINOPHEN INJECTION 100 ML IVPB ONE (15:59)
[2018-01-07] MEDS ORDERED: ONDANSETRON 4 MG/2 ML VIAL ONE (15:59)
[2018-01-07] MEDS ORDERED: SODIUM CHLORIDE 1,000 ML IV SCH (16:00)
[2018-01-07 16:05] VITALS: BP 175/81; PULSE 98; TEMP 97.9; BMI 23.8
[2018-01-07 16:17] LABS: URINE APPEARANCE CLEAR; URINE BILIRUBIN NEGATIVE (<2.0 mg/dL); URINE COLOR LTYELLOW; URINE GLUCOSE (UA) 1+ (NEGATIVE); URINE KETONE NEGATIVE (NEGATIVE); URINE LEUK ESTERASE NEGATIVE (NEGATIVE); URINE NITRITE NEGATIVE (NEGATIVE); URINE PROTEIN 3+ (NEGATIVE); URINE UROBILINOGEN NEGATIVE mg/dL (0.2-1.0)
[2018-01-07 16:23] LABS: EPI CELLS RARE /HPF (FEW); URINE HYALINE CAST 1 /lpf; URINE MUCUS RARE
[2018-01-07 16:24] LABS: ALBUMIN 3.6 g/dl (3.4-5.0); ALK PHOS 123 U/L (45-117); ANION GAP 7 MMOL/L (8-16); BILIRUBIN,TOTAL 0.5 mg/dL (0.2-1); BLOOD UREA NITROGEN 29 mg/dL (7-18); CALCIUM 9.5 mg/dL (8.5-10.1); CHLORIDE 104 mmol/L (98-107); CO2 26 mmol/L (21-32); CREATININE 0.8 mg/dL (0.55-1.3); GLUCOSE,RANDOM 166 mg/dL (74-106); LIPASE 230 U/L (73-393); POTASSIUM 4.6 mmol/L (3.5-5.1); SGOT/AST 25 U/L (15-37); SGPT/ALT 50 U/L (13-61); SODIUM 137 mmol/L (136-145); TOT PROT 8.5 g/dl (6.4-8.2)
--- NOTE | 2018-01-07 19:33 | PDOC ---
Attending Attestation - Resident Resident Name: Elle Patterson - ED Attending Attestation I have performed the following: I have examined & evaluated the patient, The case was reviewed & discussed with the resident, I agree w/resident's findings & plan - HPI HPI: 01/07/18 19:28 The patient is a 52 year old female, from [facility] , with a significant past medical history of diabetes, PAD, left lower limb amputation who presents to the emergency department with lower abdominal pain for 2 days. She reports some associated nausea, 5 episodes of vomiting and constipation. She states that she followed up with her doctor at [facility] by which she received an enema this morning. The patient subsequently reports experiencing 2 normal bowel movements but, still experiencing abdominal pain. The patient denies any other symptoms. She denies any fever, chills, diarrhea or urinary symptoms. She denies any chest pain, shortness of breath, headache of dizziness. She denies any other complaints. - Physicial Exam PE: 01/07/18 19:30 NAD, well appearing, PERRL, EOMI, MMM, nl conjunctiva, anicteric; neck supple. lungs clear, RRR, abdomen soft bilateral lower quad tenderness, left>right. PORTILLO x4, no focal neuro deficits. left BKA with surgical scar. No peripheral edema. normal color for ethnicity, WWP. pelvic exam performed by resident, see note. 01/07/18 19:32 - Medical Decision Making 01/07/18 19:29 Last pelvic US in 11/2017 with enlarged uterus with multiple fibroids, calcification, normal abdomen ultrasound pelvic exam by resident limited, due to significant pain labs and lytes wnl, UA neg for infection repeat TVUS with fibroid uterus, ovaries limited, no pelvic FF. CT a/p to r/o diverticulitis and intra abdominal pathology due to persistent pain and unremarkable TVUS. s/o to Dr. Tejada pending imaging results and ultimate dispo recommended to pt CFO referral for management of irregular menses and fibroid uterus. 01/07/18 19:32 01/07/18 19:32
[2018-01-07] MEDS ORDERED: LACTULOSE 20 GM/30 ML UDC (FOR ORAL USE ONLY) PO ONE (20:07)
== END 2018-01-07 21:08 ==
LOC: JER 14:35
PROC: 3E033GC Introduction of Other Therapeutic Substance into Peripheral Vein, Percutaneous Approach (ICD-10-PCS; principal; 2018-01-07)
PROC: 3E033NZ Introduction of Analgesics, Hypnotics, Sedatives into Peripheral Vein, Percutaneous Approach (ICD-10-PCS; 2018-01-07)
DX: K59.09 Other constipation (principal); D25.9 Leiomyoma of uterus, unspecified; D64.9 Anemia, unspecified; E11.65 Type 2 diabetes mellitus with hyperglycemia; Z79.4 Long term (current) use of insulin; F33.9 Major depressive disorder, recurrent, unspecified; I73.9 Peripheral vascular disease, unspecified; Z89.512 Acquired absence of left leg below knee; L97.518 Non-pressure chronic ulcer of other part of right foot with other specified severity
CPT/HCPCS: 36415; 74177-TC; 76856-TC; 80053; 81003; 81015; 83605; 83690; 84703; 85025; 87086; 96374; 96375; 99283-25; J0131; J7030

== ENCOUNTER 2020-07-12 22:38 | Inpatient (IN) | payer OTHER ==
[2020-07-12 23:12] LABS: BASO % 0.4 % (0-2.0); EOS % 2.5 % (0-4.5); HEMATOCRIT 34.6 % (32.4-45.2); HEMOGLOBIN 11.8 GM/dL (10.7-15.3); LYMPH % 24.8 % (8-40); MCH 29.6 pg (25.7-33.7); MEAN CELL VOLUME 86.9 fl (80-96); MEAN PLT VOLUME 9.4 fl (7.5-11.1); MONO % 7.7 % (3.8-10.2); NEUT % 64.6 % (42.8-82.8); PLATELET COUNT 313 K/MM3 (134-434); RBC 3.98 M/mm3 (3.60-5.2); RDW 14.9 % (11.6-15.6); WHITE BLOOD COUNT 8.9 K/mm3 (4.0-10.0)
[2020-07-12] MEDS ORDERED: LABETALOL HCL 5 MG/1 ML (100MG/20 ML VIAL) IVPUSH ONE (23:17)
[2020-07-12 23:20] VITALS: BMI 28.3
[2020-07-12 23:25] LABS: INR 0.94 (0.83-1.09); PROTHROMBIN TIME (PATIENT) 11.6 SEC (9.7-13.0)
[2020-07-12 23:27] LABS: ACTIVATED PTT 31.3 SECONDS (25.2-36.5)
[2020-07-12] MEDS ORDERED: ONDANSETRON 4 MG/2 ML VIAL IVPUSH ONE (23:27)
[2020-07-12] MEDS ORDERED: ONDANSETRON 4 MG/2 ML VIAL ONE (23:28)
[2020-07-12] MEDS ORDERED: ASPIRIN 81 MG CHEWABLE TABLETS PO ONE (23:32)
[2020-07-12 23:33] LABS: CHLORIDE 107 mmol/L (98-107); SODIUM 138 mmol/L (136-145)
[2020-07-12 23:35] LABS: CALCIUM 8.7 mg/dL (8.5-10.1)
[2020-07-12 23:36] LABS: ALBUMIN 2.6 g/dl (3.4-5.0); ANION GAP 7 MMOL/L (8-16); BLOOD UREA NITROGEN 43.7 mg/dL (7-18); CO2 24 mmol/L (21-32); GLUCOSE,RANDOM 240 mg/dL (74-106)
[2020-07-12 23:37] LABS: VENOUS BASE EXCESS -0.7 mmol/L (-2-2); VENOUS O2 SATURATION 30.8 % (70-80); VENOUS PCO2 52.3 mmHg (38-52); VENOUS PH 7.319 (7.310-7.410)
[2020-07-12 23:38] LABS: CHOLESTEROL 442 mg/dL (50-200); TRIGLYCERIDES 227 mg/dL (0-150)
[2020-07-12 23:39] LABS: CREATININE 1.7 mg/dL (0.55-1.3); LDL CHOLESTEROL (ONLY SJRH) 291 mg/dL (5-100); SGOT/AST 39 U/L (15-37); SGPT/ALT 43 U/L (13-61)
[2020-07-12 23:40] LABS: BILIRUBIN,TOTAL 0.5 mg/dL (0.2-1); TOT PROT 7.2 g/dl (6.4-8.2)
[2020-07-12 23:41] LABS: HDL CHOLESTEROL 62 mg/dL (40-60)
[2020-07-12 23:42] LABS: ALK PHOS 115 U/L (45-117)
[2020-07-12] MEDS ORDERED: SODIUM CHLORIDE 0.9% 500 ML INFUS.BAG IV ONE (23:50)
[2020-07-13] MEDS ORDERED: LABETALOL HCL 5 MG/1 ML (100MG/20 ML VIAL) ONE (00:53)
[2020-07-13 02:49] LABS: EPI CELLS >36 /uL (0-25.1); HYALINE CASTS 1 /uL (0-3.1); URINE APPEARANCE CLOUDY; URINE BACTERIA 207 /uL (0-1359); URINE BILIRUBIN NEGATIVE (NEGATIVE); URINE COLOR YELLOW; URINE GLUCOSE (UA) 1+ (NEGATIVE); URINE KETONE TRACE (NEGATIVE); URINE LEUK ESTERASE NEGATIVE (NEGATIVE); URINE NITRITE NEGATIVE (NEGATIVE); URINE PROTEIN 3+ (NEGATIVE); URINE RBC 25 /uL (0-23.9); URINE UROBILINOGEN 0.2 mg/dL (0.2-1.0)
[2020-07-13 08:00] LABS: YEAST NON SEEN (NEGATIVE)
[2020-07-13] MEDS ORDERED: hydrALAZINE HCL 20 MG/ML VIAL IVPUSH ONE (08:20)
[2020-07-13] MEDS ORDERED: ACETAMINOPHEN 325 MG TABLET (FP) PO PRN (08:20)
[2020-07-13 08:32] LABS: CHOLESTEROL 425 mg/dL (50-200); HDL CHOLESTEROL 60 mg/dL (40-60); TRIGLYCERIDES 218 mg/dL (0-150)
[2020-07-13 09:00] LABS: LDL CHOLESTEROL (ONLY SJRH) 278 mg/dL (5-100)
[2020-07-13] MEDS: HEPARIN NA (PORCINE) 5,000 UNITS/ML 1ML VIAL SQ SCH ×2 (09:21→21:32)
[2020-07-13] MEDS: amLODIPine BESYLATE 10 MG TABLET (FP) PO SCH (09:21)
[2020-07-13] MEDS: ASPIRIN COATED 81 MG TABLET.EC PO SCH (09:21)
[2020-07-13] MEDS: CARVEDILOL 12.5 MG TABLET (FP) PO SCH ×2 (09:21→21:31)
[2020-07-13] MEDS: DULoxetine HCL 30 MG CAPSULE.DR PO SCH (09:21)
[2020-07-13 11:16] LABS: BASO % 1.2 % (0-2.0); EOS % 0.5 % (0-4.5); HEMATOCRIT 32.8 % (32.4-45.2); LYMPH % 13.9 % (8-40); MCH 28.9 pg (25.7-33.7); MCHC 33.4 g/dl (32.0-36.0); MEAN CELL VOLUME 86.5 fl (80-96); MEAN PLT VOLUME 8.8 fl (7.5-11.1); MONO % 6.4 % (3.8-10.2); PLATELET COUNT 307 K/MM3 (134-434); RBC 3.79 M/mm3 (3.60-5.2); RDW 14.5 % (11.6-15.6); WHITE BLOOD COUNT 9.3 K/mm3 (4.0-10.0)
[2020-07-13 11:35] LABS: CALCIUM 8.4 mg/dL (8.5-10.1)
[2020-07-13 11:36] LABS: ALBUMIN 2.5 g/dl (3.4-5.0); BLOOD UREA NITROGEN 39.2 mg/dL (7-18)
[2020-07-13 11:39] LABS: CREATININE 1.6 mg/dL (0.55-1.3)
[2020-07-13 11:40] LABS: BILIRUBIN,TOTAL 0.4 mg/dL (0.2-1); TOT PROT 6.7 g/dl (6.4-8.2)
[2020-07-13] MEDS: INSULIN SLIDING SCALE (NOVOLOG) 1 VIAL SQ SCH ×3 (11:59→21:33)
[2020-07-13] MEDS: GABAPENTIN 400 MG CAPSULE PO SCH ×2 (13:48→21:31)
[2020-07-13] MEDS: hydrALAZINE HCL 10 MG TABLET PO SCH ×2 (13:48→21:31)
[2020-07-13] MEDS: DEXTROSE 5%-0.45% SALINE 1,000 ML IV SCH (13:49)
[2020-07-13] MEDS ORDERED: ONDANSETRON 4 MG/2 ML VIAL IVPUSH PRN (14:40)
[2020-07-13] MEDS: CLOPIDOGREL BISULFATE 75 MG TABLET (FP) PO SCH (16:50)
[2020-07-13] MEDS: ATORVASTATIN CA 80 MG TABLET (FP) PO SCH (21:31)
[2020-07-14] MEDS: GABAPENTIN 400 MG CAPSULE PO SCH ×3 (06:06→21:43)
[2020-07-14] MEDS: hydrALAZINE HCL 10 MG TABLET PO SCH ×3 (06:06→21:43)
[2020-07-14] MEDS: INSULIN SLIDING SCALE (NOVOLOG) 1 VIAL SQ SCH ×4 (06:06→21:50)
[2020-07-14 08:04] LABS: BASO % 1.5 % (0-2.0); EOS % 1.7 % (0-4.5); HEMATOCRIT 31.9 % (32.4-45.2); HEMOGLOBIN 10.8 GM/dL (10.7-15.3); LYMPH % 27.4 % (8-40); MCH 29.2 pg (25.7-33.7); MCHC 33.8 g/dl (32.0-36.0); MEAN CELL VOLUME 86.5 fl (80-96); MEAN PLT VOLUME 9.5 fl (7.5-11.1); MONO % 7.9 % (3.8-10.2); NEUT % 61.5 % (42.8-82.8); PLATELET COUNT 294 K/MM3 (134-434); RBC 3.69 M/mm3 (3.60-5.2); RDW 14.8 % (11.6-15.6); WHITE BLOOD COUNT 7.2 K/mm3 (4.0-10.0)
[2020-07-14 08:30] LABS: ALBUMIN 2.3 g/dl (3.4-5.0); BLOOD UREA NITROGEN 37.7 mg/dL (7-18); CALCIUM 8.3 mg/dL (8.5-10.1)
[2020-07-14 08:32] LABS: CREATININE 1.8 mg/dL (0.55-1.3)
[2020-07-14 08:34] LABS: BILIRUBIN,TOTAL 0.6 mg/dL (0.2-1); TOT PROT 6.2 g/dl (6.4-8.2)
[2020-07-14] MEDS: DEXTROSE 5%-0.45% SALINE 1,000 ML IV SCH (09:49)
[2020-07-14] MEDS: CARVEDILOL 12.5 MG TABLET (FP) PO SCH ×2 (09:50→21:43)
[2020-07-14] MEDS: DULoxetine HCL 30 MG CAPSULE.DR PO SCH (09:50)
[2020-07-14] MEDS: CLOPIDOGREL BISULFATE 75 MG TABLET (FP) PO SCH (09:51)
[2020-07-14] MEDS: amLODIPine BESYLATE 10 MG TABLET (FP) PO SCH (09:51)
[2020-07-14] MEDS: ASPIRIN COATED 81 MG TABLET.EC PO SCH ×2 (09:58→18:26)
[2020-07-14] MEDS: HEPARIN NA (PORCINE) 5,000 UNITS/ML 1ML VIAL SQ SCH ×2 (09:59→21:42)
[2020-07-14] MEDS ORDERED: INSULIN (NOVOLOG) ASPART 100 UNITS/ML 10ML VIAL ONE (17:10)
[2020-07-14] MEDS: ATORVASTATIN CA 80 MG TABLET (FP) PO SCH (21:43)
[2020-07-15] MEDS: GABAPENTIN 400 MG CAPSULE PO SCH ×3 (05:29→21:01)
[2020-07-15] MEDS: hydrALAZINE HCL 10 MG TABLET PO SCH ×3 (05:29→21:01)
[2020-07-15] MEDS: INSULIN SLIDING SCALE (NOVOLOG) 1 VIAL SQ SCH ×4 (05:59→21:02)
[2020-07-15 08:09] LABS: BASO % 1.4 % (0-2.0); EOS % 3.4 % (0-4.5); HEMATOCRIT 32.8 % (32.4-45.2); HEMOGLOBIN 11.1 GM/dL (10.7-15.3); LYMPH % 21.9 % (8-40); MCH 29.2 pg (25.7-33.7); MCHC 33.8 g/dl (32.0-36.0); MEAN CELL VOLUME 86.4 fl (80-96); MEAN PLT VOLUME 9.3 fl (7.5-11.1); MONO % 7.3 % (3.8-10.2); PLATELET COUNT 295 K/MM3 (134-434); RDW 14.4 % (11.6-15.6); WHITE BLOOD COUNT 7.1 K/mm3 (4.0-10.0)
[2020-07-15 08:16] LABS: ALBUMIN 2.3 g/dl (3.4-5.0); CALCIUM 8.4 mg/dL (8.5-10.1)
[2020-07-15 08:17] LABS: BLOOD UREA NITROGEN 34.6 mg/dL (7-18)
[2020-07-15 08:19] LABS: CREATININE 1.7 mg/dL (0.55-1.3)
[2020-07-15 08:20] LABS: BILIRUBIN,TOTAL 0.5 mg/dL (0.2-1)
[2020-07-15 08:21] LABS: TOT PROT 6.4 g/dl (6.4-8.2)
[2020-07-15] MEDS: DULoxetine HCL 30 MG CAPSULE.DR PO SCH (09:47)
[2020-07-15] MEDS: CARVEDILOL 12.5 MG TABLET (FP) PO SCH ×2 (09:48→21:01)
[2020-07-15] MEDS: ASPIRIN COATED 81 MG TABLET.EC PO SCH (09:48)
[2020-07-15] MEDS: CLOPIDOGREL BISULFATE 75 MG TABLET (FP) PO SCH (09:48)
[2020-07-15] MEDS: amLODIPine BESYLATE 10 MG TABLET (FP) PO SCH (09:48)
[2020-07-15] MEDS: HEPARIN NA (PORCINE) 5,000 UNITS/ML 1ML VIAL SQ SCH ×2 (09:48→21:00)
[2020-07-15] MEDS: DEXTROSE 5%-0.45% SALINE 1,000 ML IV SCH (09:49)
[2020-07-15] MEDS: LOSARTAN POTASSIUM 25 MG TABLET PO SCH (15:44)
[2020-07-15] MEDS ORDERED: SODIUM CHLORIDE 0.45% 1,000 ML IV SCH (17:15)
[2020-07-15] MEDS: ATORVASTATIN CA 80 MG TABLET (FP) PO SCH (21:01)
[2020-07-16] MEDS: INSULIN SLIDING SCALE (NOVOLOG) 1 VIAL SQ SCH ×4 (06:25→23:34)
[2020-07-16] MEDS: GABAPENTIN 400 MG CAPSULE PO SCH ×3 (06:25→23:33)
[2020-07-16] MEDS: hydrALAZINE HCL 10 MG TABLET PO SCH ×3 (06:25→23:33)
[2020-07-16 08:29] LABS: CALCIUM 8.3 mg/dL (8.5-10.1)
[2020-07-16 08:30] LABS: ALBUMIN 2.5 g/dl (3.4-5.0); BLOOD UREA NITROGEN 34.6 mg/dL (7-18)
[2020-07-16 08:33] LABS: CREATININE 1.8 mg/dL (0.55-1.3)
[2020-07-16 08:34] LABS: BILIRUBIN,TOTAL 0.5 mg/dL (0.2-1); TOT PROT 6.7 g/dl (6.4-8.2)
[2020-07-16] MEDS: CLOPIDOGREL BISULFATE 75 MG TABLET (FP) PO SCH (09:49)
[2020-07-16] MEDS: CARVEDILOL 12.5 MG TABLET (FP) PO SCH ×2 (09:49→23:33)
[2020-07-16] MEDS: DULoxetine HCL 30 MG CAPSULE.DR PO SCH (09:49)
[2020-07-16] MEDS: amLODIPine BESYLATE 10 MG TABLET (FP) PO SCH (09:49)
[2020-07-16] MEDS: HEPARIN NA (PORCINE) 5,000 UNITS/ML 1ML VIAL SQ SCH ×2 (09:49→23:34)
[2020-07-16] MEDS: LOSARTAN POTASSIUM 25 MG TABLET PO SCH (09:49)
[2020-07-16] MEDS: ASPIRIN COATED 81 MG TABLET.EC PO SCH (09:49)
[2020-07-16 11:43] LABS: EPI CELLS 7 /uL (0-25.1); HYALINE CASTS 0 /uL (0-3.1); URINE APPEARANCE CLEAR; URINE BACTERIA 259 /uL (0-1359); URINE BILIRUBIN NEGATIVE (NEGATIVE); URINE COLOR YELLOW; URINE GLUCOSE (UA) TRACE (NEGATIVE); URINE KETONE NEGATIVE (NEGATIVE); URINE LEUK ESTERASE NEGATIVE (NEGATIVE); URINE NITRITE NEGATIVE (NEGATIVE); URINE PROTEIN 3+ (NEGATIVE); URINE RBC 14 /uL (0-23.9); URINE UROBILINOGEN 0.2 mg/dL (0.2-1.0); URINE WBC 17 /uL (0-25.8)
[2020-07-16 12:14] LABS: YEAST PRESENT (NEGATIVE)
[2020-07-16] MEDS: ATORVASTATIN CA 80 MG TABLET (FP) PO SCH (23:33)
[2020-07-17 01:41] VITALS: TEMP 98.3
[2020-07-17] MEDS: GABAPENTIN 400 MG CAPSULE PO SCH (05:43)
[2020-07-17] MEDS: hydrALAZINE HCL 10 MG TABLET PO SCH (05:43)
[2020-07-17] MEDS: INSULIN SLIDING SCALE (NOVOLOG) 1 VIAL SQ SCH ×2 (07:02→11:37)
[2020-07-17 07:08] LABS: BASO % 1.4 % (0-2.0); EOS % 3.5 % (0-4.5); HEMATOCRIT 31.7 % (32.4-45.2); HEMOGLOBIN 10.5 GM/dL (10.7-15.3); LYMPH % 22.4 % (8-40); MCH 28.8 pg (25.7-33.7); MCHC 33.3 g/dl (32.0-36.0); MEAN CELL VOLUME 86.7 fl (80-96); MEAN PLT VOLUME 9.6 fl (7.5-11.1); MONO % 8.5 % (3.8-10.2); NEUT % 64.2 % (42.8-82.8); PLATELET COUNT 261 K/MM3 (134-434); RBC 3.66 M/mm3 (3.60-5.2); RDW 14.4 % (11.6-15.6); WHITE BLOOD COUNT 7.7 K/mm3 (4.0-10.0)
[2020-07-17 07:36] LABS: CALCIUM 8.4 mg/dL (8.5-10.1)
[2020-07-17 07:37] LABS: ALBUMIN 2.2 g/dl (3.4-5.0); BLOOD UREA NITROGEN 38.5 mg/dL (7-18)
[2020-07-17 07:40] LABS: CREATININE 1.9 mg/dL (0.55-1.3)
[2020-07-17 07:41] LABS: BILIRUBIN,TOTAL 0.4 mg/dL (0.2-1)
[2020-07-17 07:42] LABS: TOT PROT 5.9 g/dl (6.4-8.2)
[2020-07-17] MEDS: DULoxetine HCL 30 MG CAPSULE.DR PO SCH (10:08)
[2020-07-17] MEDS: ASPIRIN COATED 81 MG TABLET.EC PO SCH (10:08)
[2020-07-17] MEDS: amLODIPine BESYLATE 10 MG TABLET (FP) PO SCH (10:09)
[2020-07-17] MEDS: LOSARTAN POTASSIUM 25 MG TABLET PO SCH (10:09)
[2020-07-17] MEDS: HEPARIN NA (PORCINE) 5,000 UNITS/ML 1ML VIAL SQ SCH (10:09)
[2020-07-17] MEDS: CLOPIDOGREL BISULFATE 75 MG TABLET (FP) PO SCH (10:09)
[2020-07-17] MEDS: CARVEDILOL 12.5 MG TABLET (FP) PO SCH (10:09)
[2020-07-17 10:23] VITALS: BP 153/75; PULSE 90
[2020-07-18 10:08] LABS: ANTIGLOMERULAR BASEMENT MEN.AB 2 units (0-20)
[2020-07-18 18:10] LABS: ATYPICAL pANCA <1:20 titer (Neg:<1:20); C-ANCA <1:20 titer (Neg:<1:20)
== END 2020-07-17 14:06 | DRG 45 ==
LOC: JER 22:38 → JERBED 07-13 00:58 → J4W 07-13 02:55
PROVIDERS: ADMIT Internal Medicine; ATTEND Internal Medicine
DX: I63.89 Other cerebral infarction (principal); R29.704 NIHSS score 4; I10 Essential (primary) hypertension; E78.5 Hyperlipidemia, unspecified; E11.51 Type 2 diabetes mellitus with diabetic peripheral angiopathy without gangrene; E11.621 Type 2 diabetes mellitus with foot ulcer; L97.518 Non-pressure chronic ulcer of other part of right foot with other specified severity; I69.392 Facial weakness following cerebral infarction; I69.354 Hemiplegia and hemiparesis following cerebral infarction affecting left non-dominant side; N17.9 Acute kidney failure, unspecified; E11.40 Type 2 diabetes mellitus with diabetic neuropathy, unspecified; D64.9 Anemia, unspecified; N28.1 Cyst of kidney, acquired; R11.2 Nausea with vomiting, unspecified; D25.9 Leiomyoma of uterus, unspecified; Z89.512 Acquired absence of left leg below knee
CPT/HCPCS: 36415; 70450-TC; 70551-TC; 74230-TC-FY; 76775-TC; 80053; 80061; 81003; 82436; 82550; 82570; 82803; 82962; 83516; 83520; 83721; 84133; 84300; 84484; 85025; 85610; 85730; 86038; 86225; 86256; 87081; 92611-GN; 93005; 93010; 93306-TC; 93880-TC; 97116-GP; 97162-GP; 99285-25; C9803; J1644; U0003; U0005

== ENCOUNTER 2020-07-28 04:41 | Day surgery (SDC) | payer OTHER ==
[2020-07-28] MEDS ORDERED: LIDOCAINE 1%/EPI 1:100000 (50 ML MULTI DOSE VIAL) ONE (07:11)
[2020-07-28 08:18] VITALS: BMI 28.8
[2020-07-28] MEDS ORDERED: LIDOCAINE HCL 1%, 10 MG/ML (20ML VIAL) INF ONE ×3 (08:33→09:08)
[2020-07-28 09:56] VITALS: TEMP 99.1
[2020-07-28 13:21] VITALS: BP 173/63; PULSE 90
== END 2020-07-28 11:00 ==
LOC: JASU-SURG 04:41 → EDSTATUS 07:30 → JASU-SURG 11:00
PROVIDERS: ATTEND Internal Medicine
PROC: 0JH602Z Insertion of Monitoring Device into Chest Subcutaneous Tissue and Fascia, Open Approach (ICD-10-PCS; principal; 2020-07-28 07:30)
DX: I63.9 Cerebral infarction, unspecified (principal)
CPT/HCPCS: 33285; C1764; 82962

== ENCOUNTER 2022-05-10 04:23 | Day surgery (SDC) | payer OTHER ==
[2022-05-06 12:41] VITALS: BMI 34.2
[~2022-05-10 04:23] MED LIST: BUPIVACAINE HCL/PF 0.25% (2.5MG/ML) 10 ML VIAL IJ ONE; LIDOCAINE HCL 1%, 10 MG/ML (20ML VIAL) NR ONE
[2022-05-10] MEDS ORDERED: MIDAZOLAM HCL 2 MG/2 ML SINGLE DOSE VIAL ONE ×3 (06:50→10:12)
[2022-05-10] MEDS ORDERED: LIDOCAINE HCL/PF 2% SDV 5ML VIAL ONE (06:55)
[2022-05-10] MEDS ORDERED: PROPOFOL 20 ML ONE (06:55)
[2022-05-10] MEDS ORDERED: SUCCINYLCHOLINE CHLORIDE 200 MG/10 ML SYRINGE ONE (06:56)
[2022-05-10] MEDS ORDERED: LIDOCAINE HCL 1%, 10 MG/ML (10ML VIAL) MDV ONE ×2 (07:06→09:13)
[2022-05-10] MEDS ORDERED: BUPIVACAINE HCL/PF 0.25% (2.5MG/ML) 10 ML VIAL ONE (07:06)
[2022-05-10] MEDS ORDERED: ceFAZolin SODIUM 1 GM VIAL IVPB ONE (08:25)
[2022-05-10] MEDS ORDERED: ceFAZolin SODIUM 1 GM VIAL ONE (08:37)
[2022-05-10] MEDS ORDERED: LIDOCAINE HCL 1%, 10 MG/ML (20ML VIAL) NR ONE (09:09)
[2022-05-10] MEDS ORDERED: BUPIVACAINE HCL/PF 0.25% (2.5MG/ML) 10 ML VIAL IJ ONE (09:09)
[2022-05-10] MEDS ORDERED: THROMBIN (BOVINE) 5,000 UNIT VIAL TP ONE (10:11)
[2022-05-10] MEDS ORDERED: VANCOMYCIN 1,000 MG VIAL (RESTRICTED TO ID ONLY) IVPB ONE (10:15)
[2022-05-10] MEDS ORDERED: VANCOMYCIN 1,000 MG VIAL (RESTRICTED TO ID ONLY) ONE (10:17)
[2022-05-10] MEDS ORDERED: ONDANSETRON 4 MG/2 ML VIAL IVPUSH PRN (10:24)
[2022-05-10] MEDS ORDERED: oxyCODONE HCL 5 MG TABLET PO PRN (10:24)
[2022-05-10] MEDS ORDERED: LACTATED RINGERS SOLUTION 1,000 ML IV SCH (10:30)
[2022-05-10 14:15] VITALS: PULSE 89
[2022-05-10 15:20] VITALS: RESP 18
[2022-05-10 17:02] VITALS: BP 127/62; TEMP 97.8
== END 2022-05-10 16:15 ==
LOC: JASU-SURG 04:23
PROVIDERS: ATTEND Internal Medicine
PROC: 02HK3JZ Insertion of Pacemaker Lead into Right Ventricle, Percutaneous Approach (ICD-10-PCS; 2022-05-10)
PROC: 0JH606Z Insertion of Pacemaker, Dual Chamber into Chest Subcutaneous Tissue and Fascia, Open Approach (ICD-10-PCS; principal; 2022-05-10 07:30)
PROC: 02HL3JZ Insertion of Pacemaker Lead into Left Ventricle, Percutaneous Approach (ICD-10-PCS; 2022-05-10 07:30)
DX: I48.19 Other persistent atrial fibrillation (principal); I63.9 Cerebral infarction, unspecified; I49.5 Sick sinus syndrome; I10 Essential (primary) hypertension; E11.9 Type 2 diabetes mellitus without complications
CPT/HCPCS: 33208; C1785; C1898; 71045-TC-FY; 76000-TC-FY; 82962; 93005; 93010; 94760